=== PATIENT | female | born 1950 | race Caucasian/White ===

== ENCOUNTER 2019-03-17 15:41 | Emergency (ER) | payer OTHER | END 2019-03-17 16:54 | disposition left against medical advice (07) | LOC: EDUNIT# 15:41 → ER FS 15:43 | DX: R19.4 Change in bowel habit (principal); R06.02 Shortness of breath ==

== ENCOUNTER → 2020-01-13 | Outpatient (CLI) | payer MEDICARE ==
--- NOTE | 2020-01-13 11:22 | Diagnostic Imaging Report ---
INDICATION: Cough. COMPARISON: None. FINDINGS: Frontal and lateral views of the chest demonstrate normal heart size and pulmonary vascularity. Evaluation of the lung frost demonstrates some mild diffuse prominence of the interstitium. There is otherwise no focal consolidation, large effusion, nor pneumothorax. The visualized osseous structures show no acute abnormalities. There is calcified aortic atherosclerosis. IMPRESSION: 1. Mild diffuse prominence of the pulmonary interstitium, which may be on the basis of underlying chronic interstitial lung disease. 2. No focal consolidation or evidence of failure. Dictated by: Dictated on workstation # [id number]
[2020-01-13 12:07] LABS: BILIRUBIN,TOTAL 0.5 MG/DL (0.1-1.0); CALCIUM 9.1 MG/DL (8.5-10.1); CREATININE SERUM 1.17 MG/DL (0.60-1.30); POTASSIUM 4.1 MMOL/L (3.6-5.0); TOTAL PROTEIN 7.7 GM/DL (6.4-8.2)
[2020-01-13 12:09] LABS: BASOPHILS % (AUTO) 1 % (0-10); EOSINOPHILS % (AUTO) 2 % (0-10); HEMATOCRIT 43 % (35-52); HEMOGLOBIN 13.7 G/DL (11.5-16.0); LYMPHOCYTES % (AUTO) 33 % (12-44); MEAN CORPUSCULAR HEMOGLOBIN 30 PG (25-34); MEAN CORPUSCULAR HGB CONC 32 G/DL (32-36); MEAN CORPUSCULAR VOLUME 94 FL (80-99); MONOCYTES % (AUTO) 11 % (0-12); PLATELET COUNT 186 10^3/uL (130-400); RED CELL DISTRIBUTION WIDTH 14.8 % (10.0-14.5)
[2020-01-13 12:10] LABS: BASOPHILS # (AUTO) 0.1 10^3/uL (0.0-0.1); EOSINOPHILS # (AUTO) 0.2 10^3/uL (0.0-0.3); LYMPHOCYTES # (AUTO) 3.3 X 10^3 (1.0-4.0); MONOCYTES # (AUTO) 1.1 X 10^3 (0.0-1.0); NEUTROPHILS # (AUTO) 5.4 X 10^3 (1.8-7.8); NEUTROPHILS % (AUTO) 53 % (42-75)
== END ==
LOC: LAB FS 10:59
PROVIDERS: ATTEND Nurse Practitioner Family
DX: R52 Pain, unspecified (principal); R68.83 Chills (without fever); R05 Cough; Z86.39 Personal history of other endocrine, nutritional and metabolic disease
CPT/HCPCS: 36415; 71046; 80053; 85025

== ENCOUNTER 2021-01-16 08:38 | Emergency (ER) | payer MEDICARE ==
[~2021-01-16] VITALS: Ht 175.2 cm; Wt 105.4 kg
--- NOTE | 2021-01-16 08:44 | ED Fall/Injury ---
General Stated Complaint: FALL History of Present Illness Date Seen by Provider: Jan 16, 2021 Time Seen by Provider: 08:43 Initial Comments 70-year-old female presents by EMS. Patient fell out of bed this morning. Patient presents with numerous skin tears. She has multiple skin tears on the bilateral forearms with the right being greater than the left, multiple skin tears on the left hand, large skin tears over the bilateral knees. She has few small skin tears on her face with some mild contusion on her face. Patient has full range of motion in all her joints with no pain or decreased range of motion and the joints cited that due to her skin tears. Patient is unsure when her last tetanus was. Occurred: just prior to arrival Allergies and Home Medications Allergies Coded Allergies: Penicillins (Unverified Adverse Reaction, Unknown, 01/16/21) cephalexin (Unverified Adverse Reaction, Unknown, 01/16/21) ciprofloxacin (Unverified Adverse Reaction, Unknown, 01/16/21) erythromycin base (Unverified Adverse Reaction, Unknown, 01/16/21) Patient Home Medication List Home Medication List Reviewed: Yes Review of Systems Review of Systems Constitutional: No chills, No fever Eyes: No Symptoms Reported Ears, Nose, Mouth, Throat: no symptoms reported Respiratory: no symptoms reported Cardiovascular: no symptoms reported Gastrointestinal: see HPI Genitourinary: no symptoms reported Musculoskeletal: see HPI Skin: see HPI Psychiatric/Neurological: No Symptoms Reported Past Kgwazgj-Tkbmse-Dyynbr Hx Past Med/Social Hx: Reviewed Nursing Past Med/Soc Hx Physical Exam Vital Signs Vital Signs - First Documented 01/16/21 08:40 Temp 36.8 Pulse 70 Resp 20 B/P (MAP) 166/65 (98) Pulse Ox 97 O2 Delivery Nasal Cannula O2 Flow Rate 2.00 Capillary Refill : Height, Weight, BMI Height: '" Weight: lbs. oz. 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, no motor/sensory deficits, alert, normal mood/affect, oriented x 3 Skin: ecchymosis, other (Patient with numerous skin tears with majority of skin tears right forearm, left hand, few on her face, she had larger skin tears acr oss her bilateral knees.) Procedures/Interventions Wound Location: Lower Extremities Other Wound Location Bilateral knees Wound Length (cm): 25 Wound's Depth, Shape: superficial, irregular, contused tissue Wound Explored: no foreign body removed Irrigated w/ Saline (ccs): 500 Betadine Prep?: Yes Anesthesia: 1% Lidocaine Volume Anesthetic (ccs): 10 Wound Debrided: minimal Suture: Ethlion Suture Size: 4-0 Number of Sutures: 10 Sterile Dressing Applied?: Yes Progress Patient with multiple skin Tears. She had an approximate 12-1/2 cm skin tear on each knee that was very irregular with some contused tissue, some tissue was missing with some avulsion. Her left knee received 4 sutures and multiple Steri-Strips, her right knee received 6 sutures with multiple Steri-Strips. Patient has very thin skin so minimal sutures were used to approximate the tissue then Steri-Strips and nonstick dressing use. Patient tolerated procedure well. Progress/Results/Core Measures Results/Orders My Orders Orders - LOVE,MONICA L DO Dipht,Pertuss(Acell),Tet Adult (Boostrix (01/16/21 09:45) Medications Given in ED Current Medications Medications Dose Ordered Sig/Shorty Route Start Time Stop Time Status Last Admin Dose Admin Diphtheria/ Tetanus/Acell Pertussis 0.5 ml ONCE ONCE IM 01/16/21 09:45 01/16/21 09:46 DC 01/16/21 09:51 0.5 ML Vital Signs/I&O 01/16/21 01/16/21 01/16/21 08:40 08:40 10:01 Temp 36.8 36.8 36.4 36.8 Pulse 70 70 68 Resp 20 20 20 B/P (MAP) 166/65 (98) 166/65 (98) 167/56 (98) Pulse Ox 97 97 97 O2 Delivery Nasal Cannula Nasal Cannula O2 Flow Rate 2.00 2.00 Departure Impression Primary Impression: Multiple skin tears Additional Impressions: Tear of skin of multiple sites of left lower extremity Qualified Codes: S81.812A - Laceration without foreign body, left lower leg, initial encounter Tear of skin of multiple sites of right lower extremity Qualified Codes: S81.811A - Laceration without foreign body, right lower leg, initial encounter Fall from bed, initial encounter Disposition: HOME, SELF-CARE Condition: Stable Departure-Patient Inst. Referrals: MAYCOL CLAIRE MD (PCP/Family) Primary Care Physician Patient Instructions: Wound Care ED, Laceration Repair With Stitches ED, Abrasions ED Add. Discharge Instructions: Follow-up with your primary care provider next week for recheck of your wound Clean your wounds with warm soapy water Change dressings daily You may use topical antibiotic or Vaseline over your wounds MONICA LOVE DO Jan 16, 2021 08:44
[2021-01-16] MEDS ORDERED: TETANUS,DIPTH,PERTUSS P/F (BOOSTRIX) 0.5 ML VIAL IM ONE (09:45)
[2021-01-16 10:01] VITALS: BP 167/56
== END 2021-01-16 10:00 | disposition home or self-care (01) ==
LOC: EDUNIT# 08:38 → ER FS 08:40
DX: S51.811A Laceration without foreign body of right forearm, initial encounter (principal); S81.012A Laceration without foreign body, left knee, initial encounter; S81.011A Laceration without foreign body, right knee, initial encounter; S61.412A Laceration without foreign body of left hand, initial encounter; S00.83XA Contusion of other part of head, initial encounter; Z88.0 Allergy status to penicillin; Z88.1 Allergy status to other antibiotic agents; Z23 Encounter for immunization; W06.XXXA Fall from bed, initial encounter
CPT/HCPCS: 12015; 90715

== ENCOUNTER 2021-06-20 09:35 | Emergency (ER) | payer MEDICARE ==
[~2021-06-20] VITALS: Ht 177.8 cm; Wt 105.0 kg
[2021-06-20] MEDS ORDERED: NS IV 1000 ML 1,000 ML IV SCH ×2 (10:00→14:45)
--- NOTE | 2021-06-20 10:00 | ED General ---
General Stated Complaint: SOB Source of Information: Patient, Family (daughter) History of Present Illness Date Seen by Provider: Jun 20, 2021 Time Seen by Provider: 09:40 Initial Comments 71-year-old female presenting by private vehicle with complaints of generalized body aches and increased shortness of breath with generally not feeling well. She has had increased shortness of breath and cough. She has increased nasal congestion. She states that she uses oxygen to help her sleep overnight. When asked if she has a COPD diagnosis both her and the daughter initially said yes but then the patient said she did not think that she was diagnosed with that, she just has to use Oxygen at night to help her sleep. She denies sleep apnea diagnosis and does not use a CPAP. She is diabetic and states eh has had no appetite since yesterday. She has not been eating anything since yesterday. She reports being up and awake all night due to not feeling well. She has multiple sores on her legs that are not healing. She denies n/v/d, pain with urination, coughing up more than usual. Timing/Duration: 1 Day Severity: Moderate Modifying Factors: worse with Movement Associated Systoms: No Chest Pain; Cough; No Diaphoresis, No Fever/Chills, No Headaches; Loss of Appetite, Malaise; No Nausea/Vomiting, No Seizure; Shortness of Air; No Syncope; Weakness (general) Allergies and Home Medications Allergies Coded Allergies: Penicillins (Unverified Adverse Reaction, Unknown, 01/16/21) cephalexin (Unverified Adverse Reaction, Unknown, 01/16/21) ciprofloxacin (Unverified Adverse Reaction, Unknown, 01/16/21) erythromycin base (Unverified Adverse Reaction, Unknown, 01/16/21) Patient Home Medication List Home Medication List Reviewed: Yes Review of Systems Review of Systems Constitutional: No fever; malaise, weakness EENTM: nose congestion Respiratory: cough, dyspnea on exertion; No phlegm (denies increased phlegm production with increased cough); short of breath; No stridor Cardiovascular: No chest pain Gastrointestinal: see HPI Genitourinary: see HPI Musculoskeletal: see HPI (generalized body aches) Skin: see HPI Psychiatric/Neurological: Weakness (general) Past Pwxyncp-Cvtlzm-Oxlgfk Hx Patient Social History Tobacco Use?: Yes Tobacco type used: Cigarettes Immunizations Up To Date Tetanus Booster (TDap): Unknown Seasonal Allergies Seasonal Allergies: No Past Medical History Surgeries: Yes (Bilat knee arthroscopy, L TKR, Bladder suspension, Pituitary tumor exc) Bladder Surgery, Gallbladder, Joint Replacement, Orthopedic Respiratory: Yes (Tobaccoism) COPD Cardiac: Yes High Cholesterol, Hypertension Neurological: No Genitourinary: Yes (Bladder suspension for incont) Gastrointestinal: Yes (EGD/Colonoscopy; 4 ulcers) Ulcer Musculoskeletal: Yes Arthritis Endocrine: Yes Hypothyroidsim, Diabetes, Non-Insulin dep HEENT: No Cancer: No Psychosocial: Yes Anxiety Integumentary: No (thin skin with numerous skin tears/ecchymosis) Blood Disorders: No Physical Exam Vital Signs Vital Signs - First Documented Capillary Refill : Height, Weight, BMI Height: '" Weight: lbs. oz. kg; 34.00 BMI Method: General Appearance: Anxious, Chronically ill, Mild Distress, Obese HEENT: Moist Mucous Membranes Neck: Supple Respiratory: Chest Non Tender, Accessory Muscle Use, Decreased Breath Sounds Cardiovascular: Regular Rate, Rhythm, Normal Peripheral Pulses Gastrointestinal: Normal Bowel Sounds, No Pulsatile Mass, Non Tender, Soft Rectal: Deferred Extremity: Normal Capillary Refill, Normal Range of Motion, Pedal Edema Neurologic/Psychiatric: Alert, Oriented x3 Skin: Warm/Dry, Other (multiple sores on extremities, especially legs) Focused Exam Lactate Level 06/20/21 10:15: Lactic Acid Level 1.44 Lactic Acid Level Laboratory Tests Test 06/20/21 10:15 Lactic Acid Level 1.44 MMOL/L (0.50-2.00) Procedures/Interventions Suture Size: 4-0 Progress/Results/Core Measures Suspected Sepsis SIRS Temperature: Pulse: Respiratory Rate: Laboratory Tests 06/20/21 10:15: White Blood Count 14.7H Blood Pressure / Mean: 06/20/21 10:15: Lactic Acid Level 1.44 Laboratory Tests 06/20/21 10:15: Creatinine 1.38H, INR Comment 1.1, Platelet Count 153, Total Bilirubin 0.7 Results/Orders Lab Results Laboratory Tests Test 06/20/21 09:43 06/20/21 10:02 06/20/21 10:15 06/20/21 15:30 Range/Units Glucometer 196 H 70-110 MG/DL Blood Gas Puncture Site RIGHT RADIAL Blood Gas Patient Temperature 36.6 Arterial Blood pH 7.44 H 7.37-7.43 Arterial Blood Partial Pressure CO2 50 H 35-45 MMHG Arterial Blood Partial Pressure O2 46 L 79-93 MMHG Arterial Blood HCO3 34 H 23-27 MMOL/L Arterial Blood Total CO2 35.5 H 21.0-31.0 MMOL/L Arterial Blood Oxygen Saturation 83 L 94-100 % Arterial Blood Base Excess 8.4 H -2.5-2.5 MMOL/L Gonzalo Test NEGATIVE Blood Gas Ventilator Setting NO Blood Gas Inspired Oxygen 4 L White Blood Count 14.7 H 4.3-11.0 10^3/uL Red Blood Count 3.76 L 4.35-5.85 10^6/uL Hemoglobin 11.2 L 11.5-16.0 G/DL Hematocrit 34 L 35-52 % Mean Corpuscular Volume 91 80-99 FL Mean Corpuscular Hemoglobin 30 25-34 PG Mean Corpuscular Hemoglobin Concent 33 32-36 G/DL Red Cell Distribution Width 15.8 H 10.0-14.5 % Platelet Count 153 130-400 10^3/uL Mean Platelet Volume 12.0 H 7.4-10.4 FL Immature Granulocyte % (Auto) 1 % Neutrophils (%) (Auto) 69 42-75 % Lymphocytes (%) (Auto) 20 12-44 % Monocytes (%) (Auto) 10 0-12 % Eosinophils (%) (Auto) 1 0-10 % Basophils (%) (Auto) 1 0-10 % Neutrophils # (Auto) 10.2 H 1.8-7.8 X 10^3 Lymphocytes # (Auto) 2.2 1.0-4.0 X 10^3 Monocytes # (Auto) 1.4 H 0.0-1.0 X 10^3 Eosinophils # (Auto) 0.1 0.0-0.3 10^3/uL Basophils # (Auto) 0.1 0.0-0.1 10^3/uL Immature Granulocyte # (Auto) 0.1 0.0-0.1 10^3/uL Neutrophils % (Manual) 77 % Lymphocytes % (Manual) 18 % Monocytes % (Manual) 5 % Polychromasia SLIGHT Prothrombin Time 14.7 12.2-14.7 SEC INR Comment 1.1 0.8-1.4 Activated Partial Thromboplast Time 36 H 24-35 SEC D-Dimer 1.60 H 0.00-0.49 UG/ML Sodium Level 127 L 135-145 MMOL/L Potassium Level 4.6 3.6-5.0 MMOL/L Chloride Level 90 L 98-107 MMOL/L Carbon Dioxide Level 27 21-32 MMOL/L Anion Gap 10 5-14 MMOL/L Blood Urea Nitrogen 23 H 7-18 MG/DL Creatinine 1.38 H 0.60-1.30 MG/DL Estimat Glomerular Filtration Rate 38 BUN/Creatinine Ratio 17 Glucose Level 200 H 70-105 MG/DL Lactic Acid Level 1.44 0.50-2.00 MMOL/L Calcium Level 9.0 8.5-10.1 MG/DL Corrected Calcium 10.0 8.5-10.1 MG/DL Total Bilirubin 0.7 0.1-1.0 MG/DL Aspartate Amino Transf (AST/SGOT) 30 5-34 U/L Alanine Aminotransferase (ALT/SGPT) 10 0-55 U/L Alkaline Phosphatase 103 40-136 U/L Troponin I 2.63 *H <0.30 NG/ML C-Reactive Protein 21.64 H <0.50 MG/DL Pro-B-Type Natriuretic Peptide 54810.0 H <75.0 PG/ML Total Protein 7.6 6.4-8.2 GM/DL Albumin 2.8 L 3.2-4.5 GM/DL SARS-CoV-2 RNA (RT-PCR) Not Detected Not Detecte Smear Scan LRG PLTS Urine Color YELLOW Urine Clarity CLOUDY Urine pH 5.5 5-9 Urine Specific [place] 1.015 L 1.016-1.022 Urine Protein 1+ H NEGATIVE Urine Glucose (UA) NEGATIVE NEGATIVE Urine Ketones TRACE H NEGATIVE Urine Nitrite POSITIVE H NEGATIVE Urine Bilirubin NEGATIVE NEGATIVE Urine Urobilinogen 0.2 < = 1.0 MG/DL Urine Leukocyte Esterase 1+ H NEGATIVE Urine RBC (Auto) 1+ H NEGATIVE Urine RBC NONE /HPF Urine WBC >100 H /HPF Urine Squamous Epithelial Cells NONE /HPF Urine Crystals NONE /LPF Urine Bacteria LARGE H /HPF Urine Casts NONE /LPF Urine Mucus NEGATIVE /LPF Urine Culture Indicated YES My Orders Orders - CANDY LE MD Monitor-Rhythm Ecg Trace Only (06/20/21 09:47) Cbc With Automated Diff (06/20/21 09:47) Comprehensive Metabolic Panel (06/20/21 09:47) Crp Fs (06/20/21 09:47) Troponin I Fs (06/20/21 09:47) Protime With Inr (06/20/21 09:47) Partial Thromboplastin Time (06/20/21 09:47) Ekg Tracing (06/20/21 09:47) Arterial Blood Gas (06/20/21 09:47) Ns Iv 1000 Ml (Sodium Chloride 0.9%) (06/20/21 10:00) Ua Culture If Indicated (06/20/21 09:47) Blood Culture (06/20/21 09:47) O2 (06/20/21 09:47) Influenza A And B Antigens (06/20/21 09:47) Covid 19 Inhouse Test (06/20/21 09:47) Lactic Acid Analyzer (06/20/21 09:47) Chest 1 View Ap/Pa Only (06/20/21 09:50) Dexamethasone Injection (Decadron Inje (06/20/21 09:50) Probnp Fs (06/20/21 09:50) Accucheck Stat ONCE (06/20/21 09:51) Manual Differential (06/20/21 10:15) Fibrin Degradation Products (06/20/21 10:42) Heparin Drip 74593 Unit/500ml (Heparin (06/20/21 11:45) Heparin (Bolus Per Protocol) (Heparin (B (06/20/21 11:41) Aspirin Chewable Tablet (Baby Aspirin Ch (06/20/21 11:45) Meropenem (Merrem 500 Mg) (06/20/21 11:42) Alprazolam Tablet (Xanax Tablet) (06/20/21 13:00) Ns Iv 1000 Ml (Sodium Chloride 0.9%) (06/20/21 14:45) Urine Culture (06/20/21 15:30) Medications Given in ED Current Medications Medications Dose Ordered Sig/Shorty Route Start Time Stop Time Status Last Admin Dose Admin Alprazolam 0.5 mg ONCE ONCE PO 06/20/21 13:00 06/20/21 13:01 DC 06/20/21 13:03 0.5 MG Aspirin 324 mg ONCE ONCE PO 06/20/21 11:45 06/20/21 11:46 DC 06/20/21 13:02 324 MG Heparin Sodium (Porcine) 5,000 unit 1141 ONCE IV 06/20/21 11:41 06/20/21 11:43 DC 06/20/21 13:04 5,000 UNIT Heparin Sodium/ Dextrose 500 ml @ 0 mls/hr Q0M ONCE IV 06/20/21 11:45 06/20/21 11:46 DC 06/20/21 13:10 20 MLS/HR Vital Signs/I&O 06/20/21 06/20/21 09:35 09:35 Temp 36.6 Pulse 87 Resp 26 B/P (MAP) 139/58 (85) Pulse Ox 94 94 O2 Delivery Nasal Cannula Nasal Cannula O2 Flow Rate 4.00 4.00 Capillary Refill : Progress Note #1: Progress Note with vague complaints of body aches and increased shortness of breath and hypoxia will evaluate for pneumonia, COVID, Influenza, DKA, UTI, Sepsis, Myocardial Infarction Progress Note #2: Progress Note Labs shows elevated white blood cell count of 14.7 with a left shift. She has chest x-ray showing diffuse patchy infiltrate worse in the bases. She has chemistry panel showing a normal lactic acid of 1.44. She has elevated creatinine at 1.38. Her troponin is elevated at 2.63. Her proBNP is over 20,000. Her D-dimer is elevated to 1.6. However with her creatinine and GFR will defer CT angiogram until this is improved. In the meantime we will start heparin drip for non-ST elevation NV and concern for elevated D-dimer in case there is any blood clot or PE. Covid swab is pending. Updated patient and advise that she would need to be admitted to the hospital for treatment. Patient and family were adamant that they did not want to be admitted at [facility]. They requested to go to [place] or [facility]. Will start Meropenem for pneumonia/infiltrate seen on CXR since she has multiple allergies to antibiotics. Progress Note #3: Progress Note 1145 [facility] contacted and they reported they were at capacity and had no beds available. 1146 [facility] in [place] contacted and they also reported they were at capacity. 1148 [facility] contacted and they also were at capacity and had no beds available. 1200 pm [facility] contacted and the reported the did not have any beds available within their system. They would work on checking to find out if they might have a bed available at [facility] or at [facility]. 1202 pm [facility] contacted and they also were at capacity had no beds available. At this point the statewide bed request through mission control was contacted to have them work on trying to find a bed for the patient. 1321 updated [place] [employer] that Covid PCR swab came back negative. 1342 Dr. Katie Jenkins from [facility] was given information on the patient and state she would work on checking at their facilities to see if there is any bed availability. ECG Initial ECG Impression Date: Jun 20, 2021 Initial ECG Impression Time: 10:52 Initial ECG Rate: 84 Initial ECG Rhythm: Normal Sinus Initial ECG Comparisson: No Previous ECG Available Comment Normal sinus rhythm with a heart rate of 84 bpm. RI interval [address] elevation. Q waves in leads II, 3, aVF. No prior tracing available for comparison. QT interval 346 ms with a QTc interval 408 ms. Diagnostic Imaging Diagonstic Imaging: Xray Plain Films/CT/US/NM/MRI: chest Comments NAME: SOUMYA RIOS [facility] REC#: [id number] PT STATUS: REG ER : 1950 PHYSICIAN: CANDY LE MD ADMIT DATE: 06/20/21/ER FS Draft Date of Exam:06/20/21 CHEST 1 VIEW AP/PA ONLY INDICATION: Shortness of breath. TIME OF EXAM: 10:12 AM Comparison is made with prior chest from 01/13/2020. The heart is enlarged. There are interstitial changes throughout both lungs. There appears to be some patchy infiltrate in the right base that is new since prior exam. There is also some patchy infiltrate in the left base. No effusion or pneumothorax is detected. IMPRESSION: Development of patchy bibasilar infiltrates when compared to examination from 01/13/2020. Dictated on workstation # [id number] Dict: 06/20/21 1031 Trans: 06/20/21 1036 CVB [id number] Interpreted by: SVETLANA RASHID MD Electronically signed by: Departure Impression Primary Impression: Pneumonia Qualified Codes: J18.9 - Pneumonia, unspecified organism Additional Impressions: Hypoxia Non-ST elevated myocardial infarction Udiet-qr-xnsnytl kidney injury Qualified Codes: N17.9 - Acute kidney failure, unspecified; N18.4 - Chronic kidney disease, stage 4 (severe) Disposition: 02 XFER SHT-TRM HOSP Condition: Critical Transfer Transfer Reason: Diversion (No beds available for pt at local facilities) Time Spoke to Accepting Phy: 13:42 Transfer Progress Notes d/w Dr. Katie Jenkins and she was accepting to have pt come to [facility] provided they can find an intermediate bed. Will call back if can find a bed for her. Transfer Facility: [place], [place] Method of Transfer: EMS Departure-Patient Inst. Referrals: MAYCOL CLAIRE MD (PCP/Family) Primary Care Physician CANDY LE MD Jun 20, 2021 10:00
[2021-06-20 10:05] LABS: ALLENS TEST NEGATIVE; INSPIRED O2 4 L; PATIENT TEMP 36.6; VENTILATOR NO
[2021-06-20 10:28] LABS: HEMATOCRIT 34 % (35-52); HEMOGLOBIN 11.2 G/DL (11.5-16.0); LYMPHOCYTES % (AUTO) 20 % (12-44); MEAN CORPUSCULAR HEMOGLOBIN 30 PG (25-34); MEAN CORPUSCULAR HGB CONC 33 G/DL (32-36); MEAN CORPUSCULAR VOLUME 91 FL (80-99); NEUTROPHILS % (AUTO) 69 % (42-75); PLATELET COUNT 153 10^3/uL (130-400); WHITE BLOOD COUNT 14.7 10^3/uL (4.3-11.0)
[2021-06-20 10:29] LABS: BASOPHILS # (AUTO) 0.1 10^3/uL (0.0-0.1); BASOPHILS % (AUTO) 1 % (0-10); EOSINOPHILS # (AUTO) 0.1 10^3/uL (0.0-0.3); EOSINOPHILS % (AUTO) 1 % (0-10); LYMPHOCYTES # (AUTO) 2.2 X 10^3 (1.0-4.0); MONOCYTES # (AUTO) 1.4 X 10^3 (0.0-1.0); MONOCYTES % (AUTO) 10 % (0-12); NEUTROPHILS # (AUTO) 10.2 X 10^3 (1.8-7.8)
[2021-06-20 10:36] LABS: INR 1.1 (0.8-1.4); PROTHROMBIN TIME PATIENT 14.7 SEC (12.2-14.7)
--- NOTE | 2021-06-20 10:36 | Diagnostic Imaging Report ---
INDICATION: Shortness of breath. TIME OF EXAM: 10:12 AM Comparison is made with prior chest from 01/13/2020. The heart is enlarged. There are interstitial changes throughout both lungs. There appears to be some patchy infiltrate in the right base that is new since prior exam. There is also some patchy infiltrate in the left base. No effusion or pneumothorax is detected. IMPRESSION: Development of patchy bibasilar infiltrates when compared to examination from 01/13/2020. Dictated by: Dictated on workstation # [id number]
[2021-06-20 10:39] LABS: ABG BASE EXCESS 8.4 MMOL/L (-2.5-2.5); ABG OXYGEN SATURATION 83 % (94-100); ABG PCO2 50 MMHG (35-45); ABG PH 7.44 (7.37-7.43); ABG PO2 46 MMHG (79-93); ABG TCO2 35.5 MMOL/L (21.0-31.0)
[2021-06-20 10:48] LABS: CREATININE SERUM 1.38 MG/DL (0.60-1.30); POTASSIUM 4.6 MMOL/L (3.6-5.0)
[2021-06-20 10:49] LABS: ALBUMIN 2.8 GM/DL (3.2-4.5); BILIRUBIN,TOTAL 0.7 MG/DL (0.1-1.0); TOTAL PROTEIN 7.6 GM/DL (6.4-8.2)
[2021-06-20 11:16] LABS: LYMPHOCYTES % (MANUAL) 18 %; MONOCYTES % (MANUAL) 5 %; NEUTROPHILS % (MANUAL) 77 %; POLYCHROMASIA SLIGHT; SMEAR SCAN COMMENT LRG PLTS
[2021-06-20] MEDS ORDERED: HEParin 1000 UNIT/ML (10ML VIAL) FOR BOLUS IV ONE (11:41)
[2021-06-20] MEDS ORDERED: MEROPENEM 500 MG in WATER (STERILE) FOR INJECTION 10 ML IV STA (11:42)
[2021-06-20] MEDS ORDERED: ASPIRIN 81 MG CHEW (CHILDREN'S ASA) PO ONE (11:45)
[2021-06-20] MEDS ORDERED: HEParin DRIP 25000 UNIT/500ML 500 ML IV ONE (11:45)
[2021-06-20] MEDS ORDERED: ALPRAZolam 0.25 MG (XANAX) TAB PO ONE (13:00)
[2021-06-20 15:42] LABS: BACTERIA,URINE LARGE /HPF; BILIRUBIN,URINE NEGATIVE (NEGATIVE); CLARITY,URINE CLOUDY; COLOR,URINE YELLOW; GLUCOSE, URINE (UA) NEGATIVE (NEGATIVE); KETONES,URINE TRACE (NEGATIVE); LEUKOCYTE ESTERASE ,URINE 1+ (NEGATIVE); NITRITE,URINE POSITIVE (NEGATIVE); PH,URINE 5.5 (5-9); PROTEIN,URINE 1+ (NEGATIVE); WBC,URINE >100 /HPF
[2021-06-20 16:30] VITALS: BP 146/86
== END 2021-06-20 16:30 | disposition short-term general hospital (02) ==
LOC: EDUNIT# 09:40 → ER FS 09:41
DX: J18.9 Pneumonia, unspecified organism (principal); R09.02 Hypoxemia; I21.4 Non-ST elevation (NSTEMI) myocardial infarction; N17.9 Acute kidney failure, unspecified; I12.9 Hypertensive chronic kidney disease with stage 1 through stage 4 chronic kidney disease, or unspecified chronic kidney disease; J44.9 Chronic obstructive pulmonary disease, unspecified; E11.22 Type 2 diabetes mellitus with diabetic chronic kidney disease; N18.9 Chronic kidney disease, unspecified; E66.9 Obesity, unspecified; Z68.34 Body mass index [BMI] 34.0-34.9, adult; Z20.822 Contact with and (suspected) exposure to COVID-19
CPT/HCPCS: 36415; 51702; 71045; 80053; 81000; 82805; 82947; 83605; 83880; 84484; 85007; 85027; 85379; 85610; 85730; 86141; 87040; 87077; 87088; 87636; 93005; 93041; 99291

== ENCOUNTER 2021-07-16 10:36 | Emergency (ER) | payer MEDICARE ==
[~2021-07-16] VITALS: Ht 175.2 cm; Wt 105.0 kg
[2021-07-16 10:45] VITALS: BP 110/48
[2021-07-16 11:10] LABS: BASOPHILS % (AUTO) 0 % (0-10); EOSINOPHILS % (AUTO) 9 % (0-10); HEMATOCRIT 38 % (35-52); HEMOGLOBIN 12.2 g/dL (11.5-16.0); LYMPHOCYTES # (AUTO) 2.7 X 10^3 (1.0-4.0); LYMPHOCYTES % (AUTO) 21 % (12-44); MEAN CORPUSCULAR HEMOGLOBIN 30 pg (25-34); MEAN CORPUSCULAR HGB CONC 32 g/dL (32-36); MEAN CORPUSCULAR VOLUME 92 fL (80-99); MONOCYTES # (AUTO) 1.4 X 10^3 (0.0-1.0); MONOCYTES % (AUTO) 11 % (0-12); NEUTROPHILS # (AUTO) 7.5 X 10^3 (1.8-7.8); NEUTROPHILS % (AUTO) 59 % (42-75); PLATELET COUNT 169 10^3/uL (130-400); WHITE BLOOD COUNT 12.8 10^3/uL (4.3-11.0)
[2021-07-16 11:11] LABS: BASOPHILS # (AUTO) 0.1 10^3/uL (0.0-0.1); EOSINOPHILS # (AUTO) 1.2 10^3/uL (0.0-0.3)
--- NOTE | 2021-07-16 11:17 | ED General ---
General Chief Complaint: Lower Extremity Stated Complaint: GEN WEAKNESS Nursing Triage Note: Patient presents to the ED via EMS with c/o bilateral knee and feet pain. Patient reports she fell yesterday evening and since then she has had pain in her knees and feet that make it difficult to stand or walk. EMS reports that they were called for altered mental status but upon arrival patient was alert and oriented. Patient does report confusion yesterday evening and states when that happens her potassium level is usally out of the normal range. Source of Information: Patient, EMS, Old Records History of Present Illness Date Seen by Provider: Jul 16, 2021 Time Seen by Provider: 10:37 Initial Comments 71-year-old female presenting with EMS from home. She had fallen 07/15 at home and was having pain in her feet and knees. Family called 911 today because they felt she was not oriented. She was having trouble getting up due to pain in her feet and knees. She does use a walker chronically. She denies any her head or losing consciousness. She states that she has had some similar symptoms in the past with a low potassium. She denies any nausea, vomiting, diarrhea, pain with urination. She had just eaten prior to EMS picking her up. Associated Systoms: No Chest Pain; Cough (chronic); No Diaphoresis, No Fever/Chills, No Headaches, No Loss of Appetite, No Nausea/Vomiting, No Seizure, No Syncope Allergies and Home Medications Allergies Coded Allergies: Penicillins (Unverified Adverse Reaction, Unknown, 01/16/21) cephalexin (Unverified Adverse Reaction, Unknown, 01/16/21) ciprofloxacin (Unverified Adverse Reaction, Unknown, 01/16/21) erythromycin base (Unverified Adverse Reaction, Unknown, 01/16/21) Home Medications Potassium Chloride 10 Meq Capsule.er, 10 MEQ PO DAILY Prescribed by: CANDY LE on 07/16/21 1348 Patient Home Medication List Home Medication List Reviewed: Yes Review of Systems Review of Systems Constitutional: No chills, No fever EENTM: no symptoms reported Respiratory: see HPI Cardiovascular: no symptoms reported Gastrointestinal: no symptoms reported Genitourinary: no symptoms reported Musculoskeletal: see HPI, joint pain (bilateral feet and knee pain since fall), muscle pain (bilateral feet and knees since fall) Skin: change in color (multiple bruises in various stages of healing) Psychiatric/Neurological: No Symptoms Reported Past Erxkmoq-Sgopgx-Ftjspb Hx Patient Social History Tobacco Use?: No Tobacco type used: Cigarettes Smoking Status: Former Smoker Use of E-Cig and/or Vaping dev: No Substance use?: No Alcohol Use?: No Pt feels they are or have been: No Immunizations Up To Date Tetanus Booster (TDap): Unknown First/Initial COVID19 Vaccinat: 01/2021 Second COVID19 Vaccination Lon: 01/2021 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 Lockstitch: Fred Seasonal Allergies Seasonal Allergies: No Past Medical History Surgery/Hospitalization HX: HTN, DM, COPD with O2 dependency at night, frequent falls, Hypothyroidism Surgeries: Yes (Bilat knee arthroscopy, L TKR, Bladder suspension, Pituitary tumor exc) Bladder Surgery, Gallbladder, Joint Replacement, Orthopedic Respiratory: Yes (Tobaccoism) COPD Cardiac: Yes High Cholesterol, Hypertension Neurological: No Genitourinary: Yes (Bladder suspension for incont) Gastrointestinal: Yes (EGD/Colonoscopy; 4 ulcers) Ulcer Musculoskeletal: Yes Arthritis Endocrine: Yes Hypothyroidsim, Diabetes, Non-Insulin dep HEENT: No Cancer: No Psychosocial: Yes Anxiety Integumentary: No (thin skin with numerous skin tears/ecchymosis) Blood Disorders: No Physical Exam Vital Signs Vital Signs - First Documented 07/16/21 10:45 Temp 36.7 Pulse 81 Resp 17 B/P (MAP) 110/48 (68) Pulse Ox 97 O2 Delivery Room Air Capillary Refill : Less Than 3 Seconds Height, Weight, BMI Height: '" Weight: lbs. oz. 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 Norm as Tested Skin: Warm/Dry Procedures/Interventions Suture Size: 4-0 Progress/Results/Core Measures Suspected Sepsis SIRS Temperature: Pulse: 81 Respiratory Rate: 17 Laboratory Tests 07/16/21 10:52: White Blood Count 12.8H Blood Pressure 110 /48 Mean: 68 Laboratory Tests 07/16/21 10:52: Creatinine 1.75H, INR Comment 1.1, Platelet Count 169, Total Bilirubin 0.6 Results/Orders Lab Results Laboratory Tests Test 07/16/21 10:52 Range/Units White Blood Count 12.8 H 4.3-11.0 10^3/uL Red Blood Count 4.12 3.80-5.11 10^6/uL Hemoglobin 12.2 11.5-16.0 g/dL Hematocrit 38 35-52 % Mean Corpuscular Volume 92 80-99 fL Mean Corpuscular Hemoglobin 30 25-34 pg Mean Corpuscular Hemoglobin Concent 32 32-36 g/dL Red Cell Distribution Width 16.2 H 10.0-14.5 % Platelet Count 169 130-400 10^3/uL Mean Platelet Volume 11.0 9.0-12.2 fL Neutrophils (%) (Auto) 59 42-75 % Lymphocytes (%) (Auto) 21 12-44 % Monocytes (%) (Auto) 11 0-12 % Eosinophils (%) (Auto) 9 0-10 % Basophils (%) (Auto) 0 0-10 % Neutrophils # (Auto) 7.5 1.8-7.8 X 10^3 Lymphocytes # (Auto) 2.7 1.0-4.0 X 10^3 Monocytes # (Auto) 1.4 H 0.0-1.0 X 10^3 Eosinophils # (Auto) 1.2 H 0.0-0.3 10^3/uL Basophils # (Auto) 0.1 0.0-0.1 10^3/uL Prothrombin Time 14.5 12.2-14.7 SEC INR Comment 1.1 0.8-1.4 Activated Partial Thromboplast Time 35 24-35 SEC Sodium Level 132 L 135-145 MMOL/L Potassium Level 2.9 L 3.6-5.0 MMOL/L Chloride Level 91 L 98-107 MMOL/L Carbon Dioxide Level 27 21-32 MMOL/L Anion Gap 14 5-14 MMOL/L Blood Urea Nitrogen 27 H 7-18 MG/DL Creatinine 1.75 H 0.60-1.30 MG/DL Estimat Glomerular Filtration Rate 29 BUN/Creatinine Ratio 15 Glucose Level 308 H 70-105 MG/DL Calcium Level 8.6 8.5-10.1 MG/DL Corrected Calcium 9.4 8.5-10.1 MG/DL Magnesium Level 1.7 1.6-2.4 MG/DL Total Bilirubin 0.6 0.1-1.0 MG/DL Aspartate Amino Transf (AST/SGOT) 21 5-34 U/L Alanine Aminotransferase (ALT/SGPT) 9 0-55 U/L Alkaline Phosphatase 117 40-136 U/L Troponin I < 0.30 <0.30 NG/ML Pro-B-Type Natriuretic Peptide 8740.0 H <75.0 PG/ML Total Protein 6.9 6.4-8.2 GM/DL Albumin 3.0 L 3.2-4.5 GM/DL Lipase 7 L 8-78 U/L My Orders Orders - CANDY LE MD Cbc With Automated Diff (07/16/21 10:46) Magnesium (07/16/21 10:46) Ekg Tracing (07/16/21 10:46) Comprehensive Metabolic Panel (07/16/21 10:46) Protime With Inr (07/16/21 10:46) Partial Thromboplastin Time (07/16/21 10:46) O2 (07/16/21 10:46) Monitor-Rhythm Ecg Trace Only (07/16/21 10:46) Ed Iv/Invasive Line Start (07/16/21 10:46) Lipase (07/16/21 10:46) Foot 3 View Bilateral (07/16/21 10:46) Knee 3 View Bilateral (07/16/21 10:46) Probnp Fs (07/16/21 10:46) Troponin I Fs (07/16/21 10:46) Chest 1 View Ap/Pa Only (07/16/21 11:53) Potassium Cl 10meq/50ml Ivpb (Kcl 10 Meq (07/16/21 12:00) Ns (Ivpb) (Sodium Chloride 0.9%) (07/16/21 12:00) Vital Signs/I&O 07/16/21 10:45 Temp 36.7 Pulse 81 Resp 17 B/P (MAP) 110/48 (68) Pulse Ox 97 O2 Delivery Room Air Capillary Refill : Less Than 3 Seconds Blood Pressure Mean: 68 Progress Note #1: Progress Note check basic labs, cardiac enzymes, xrays of feet and knees, urine. Progress Note #2: Time: 11:58 Progress Note CBC stable from prior tests with mild elevation of WBC that appears to be chronic but improved from June 20. Chemistry with hypokalemia of 2.9, mild hy ponatremia, elevated Cr to 1.75, Negative troponin of <0.3, Elevated proBNP 8740 but down from June 20 when it was over 20K. Awaiting imaging of feet, knees and will add on CXR with her elevated proBNP and Cr. Order a 10 mEq KCL IV dose along with 250 mL NS to dilute potassium infusion. If no fractures seen could plan on discharge to home with family on a few days of potassium oral supplement and check back with clinic for lab recheck next week. Progress Note #3: Progress Note Prescribe a potassium supplement for home. Encourage patient to follow-up through the clinic for recheck. Reassured patient and family that there is no fracture seen on imaging. It appears that the medications for heart failure are helping as her proBNP has come down. Counseled on follow-up and return precautions especially regarding her frequent falls and weakness ECG Initial ECG Impression Date: Jul 16, 2021 Initial ECG Impression Time: 10:54 Initial ECG Rate: 77 Initial ECG Rhythm: Normal Sinus Initial ECG Comparisson: Unchanged Comment Normal sinus rhythm with a heart rate of 77 bpm. NH interval 180 ms. QT inte rval 446 ms with a QTc interval of 505 ms. She has chronic inferior Q waves in leads II, III and aVF. Overall the tracing appears similar to June 20. No acute ST elevation Diagnostic Imaging Diagonstic Imaging: Xray Plain Films/CT/US/NM/MRI: knee Comments [facility]. [place], [place] NAME: SOUMYA RIOS [facility] REC#: [id number] PT STATUS: DEP ER : 1950 PHYSICIAN: CANDY LE MD ADMIT DATE: 07/16/21/ER FS Signed Date of Exam:07/16/21 KNEE 3 VIEW BILATERAL EXAM: Bilateral knees at 11:46 AM INDICTION: Injury, knee pain. 3 views of each knee joint were obtained. There are no prior studies available for comparison. There is no fracture, dislocation or acute bony abnormality evident. There is a total knee prosthesis on the left. The prosthetic components seem to be in good position. There is at least moderate degenerative disease of each compartment of the right knee joint. The soft tissues are unremarkable for an acute abnormality. There are 5 roughly 1 cm rounded calcific densities in the soft tissues along the posterior aspect of the right knee joint. There also appears to be a 1 cm loose body in the posterior aspect of the right knee joint. There may be another smaller 4 mm calcific density anteriorly. The soft tissues are unremarkable. There is no sign of a joint effusion. IMPRESSION: 1. There is no evidence for an acute bony abnormality. 2. The total knee prosthesis on the left appear stable. 3. 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 There also appears to be loose bodies within the knee joint. Dictated by: Dictated on workstation # [id number] Dict: 07/16/21 1240 Trans: 07/16/21 1628 [facility] [id number] Interpreted by: SENIA RAJAN MD Electronically signed by: SENIA RAJAN MD 07/16/21 1628 Diagonstic Imaging: Xray Plain Films/CT/US/NM/MRI: other (feet) Comments [facility] [place], [place] NAME: SOUMYA RIOS [facility] REC#: [id number] PT STATUS: DEP ER : 1950 PHYSICIAN: CANDY LE MD ADMIT DATE: 07/16/21/ER FS Signed Date of Exam:07/16/21 FOOT 3 VIEW BILATERAL EXAM: Bilateral feet at 11:57 AM INDICATION: Injury, foot pain. 4 views of each foot were obtained. There are no prior studies for comparison. FINDINGS: The images of the left foot show a prominent area of healing callus formation about the neck of the second metatarsal. There is a linear lucency still evident within the neck of the second metatarsal indicating that this fracture has not healed completely. There is also an orthopedic fixation screw extending longitudinally through the distal right fibula. There is no acute fracture of either foot. There is moderate degenerative disease of the phalanges and there is a small calcaneal spur on the left. The Lisfranc joint seems well-maintained. The soft tissues are unremarkable. IMPRESSION: 1. There is no evidence for an acute bony abnormality. 2. There are post traumatic changes involving the left second metatarsal and postsurgical changes involving the distal right fibula. Dictated by: Dictated on workstation # [id number] Dict: 07/16/21 1236 Trans: 07/16/21 1628 [facility] [id number] Interpreted by: SENIA RAJAN MD Electronically signed by: SENIA RAJAN MD 07/16/21 1628 Diagonstic Imaging: Xray Plain Films/CT/US/NM/MRI: chest Comments [facility] [place], [place] NAME: SOUMYA RIOS [facility] REC#: [id number] PT STATUS: REG ER : 1950 PHYSICIAN: CANDY LE MD ADMIT DATE: 07/16/21/ER FS Signed Date of Exam:07/16/21 CHEST 1 VIEW AP/PA ONLY EXAMINATION: Chest 1 view HISTORY: weak, short of breath COMPARISON: 06/20/2021 FINDINGS: Stable size of the cardiac silhouette and pulmonary vasculature. There are calcifications of the aorta. There has been interval decrease in the bibasilar opacities compared to a 06/20/2021. There are persistent interstitial opacities seen throughout both lungs. No pleural effusion or pneumothorax. The osseous structures are intact. IMPRESSION: 1. Mild cardiomegaly and diffuse interstitial opacities in both lungs which can be seen with pulmonary edema or atypical infection. 2. Decreased bibasilar opacities compared to 06/20/2021. Dictated by: Dictated on workstation # [id number] Dict: 07/16/21 1239 Trans: 07/16/21 1345 [facility] [id number] Interpreted by: LILIANA ANGELO DO Electronically signed by: LILIANA ANGELO DO 07/16/21 1345 Reviewed: Reviewed by Me Departure Impression Primary Impression: Bilateral leg and foot pain Additional Impressions: Fall at home Qualified Codes: W19.XXXA - Unspecified fall, initial encounter; Y92.009 - Unspecified place in unspecified non-institutional (private) residence as the place of occurrence of the external cause Hypokalemia Disposition: HOME, SELF-CARE Condition: Stable Departure-Patient Inst. Decision time for Depature: 13:46 Referrals: MAYCOL CLAIRE MD (PCP/Family) Primary Care Physician Patient Instructions: Foot Sprain ED, Hypokalemia (DC), Knee Pain ED, Preventing Falls ED Add. Discharge Instructions: Take the low dose potassium to help with keeping your potassium up while taking your water pill diuretic. Check back with clinic for continued concerns/problems. All discharge instructions reviewed with patient and/or family. Voiced understanding. Scripts Potassium Chloride (Potassium Chloride) 10 Meq Capsule.er 10 MEQ PO DAILY for hypokalemia for 14 Days, #14 CAP 0 Refills Prov: CANDY LE MD 07/16/21 CANDY LE MD Jul 16, 2021 11:17
[2021-07-16 11:31] LABS: BUN/CREATININE RATIO 15; CARBON DIOXIDE 27 MMOL/L (21-32); CHLORIDE 91 MMOL/L (98-107); CREATININE SERUM 1.75 MG/DL (0.60-1.30); GFR ESTIMATED 29; POTASSIUM 2.9 MMOL/L (3.6-5.0); SODIUM 132 MMOL/L (135-145)
[2021-07-16 11:32] LABS: ALANINE AMINOTRANSFERASE 9 U/L (0-55); ALKALINE PHOSPHATASE 117 U/L (40-136); BILIRUBIN,TOTAL 0.6 MG/DL (0.1-1.0); CALCIUM 8.6 MG/DL (8.5-10.1); GLUCOSE 308 MG/DL (70-105)
[2021-07-16 11:33] LABS: LIPASE 7 U/L (8-78); TOTAL PROTEIN 6.9 GM/DL (6.4-8.2)
[2021-07-16 11:50] LABS: MAGNESIUM 1.7 MG/DL (1.6-2.4)
[2021-07-16 11:54] LABS: INR 1.1 (0.8-1.4); PROTHROMBIN TIME PATIENT 14.5 SEC (12.2-14.7)
[2021-07-16] MEDS ORDERED: NS (IVPB) 250 ML IV STA (12:00)
[2021-07-16] MEDS ORDERED: POTASSIUM CL 10MEQ/50ML IVPB 50 ML IV STA (12:00)
--- NOTE | 2021-07-16 12:42 | Diagnostic Imaging Report ---
EXAMINATION: Chest 1 view HISTORY: weak, short of breath COMPARISON: 06/20/2021 FINDINGS: Stable size of the cardiac silhouette and pulmonary vasculature. There are calcifications of the aorta. There has been interval decrease in the bibasilar opacities compared to a 06/20/2021. There are persistent interstitial opacities seen throughout both lungs. No pleural effusion or pneumothorax. The osseous structures are intact. IMPRESSION: 1. Mild cardiomegaly and diffuse interstitial opacities in both lungs which can be seen with pulmonary edema or atypical infection. 2. Decreased bibasilar opacities compared to 06/20/2021. Dictated by: Dictated on workstation # [id number]
--- NOTE | 2021-07-16 12:43 | Diagnostic Imaging Report ---
EXAM: Bilateral feet at 11:57 AM INDICATION: Injury, foot pain. 4 views of each foot were obtained. There are no prior studies for comparison. FINDINGS: The images of the left foot show a prominent area of healing callus formation about the neck of the second metatarsal. There is a linear lucency still evident within the neck of the second metatarsal indicating that this fracture has not healed completely. There is also an orthopedic fixation screw extending longitudinally through the distal right fibula. There is no acute fracture of either foot. There is moderate degenerative disease of the phalanges and there is a small calcaneal spur on the left. The Lisfranc joint seems well-maintained. The soft tissues are unremarkable. IMPRESSION: 1. There is no evidence for an acute bony abnormality. 2. There are post traumatic changes involving the left second metatarsal and postsurgical changes involving the distal right fibula. Dictated by: Dictated on workstation # [id number]
--- NOTE | 2021-07-16 12:46 | Diagnostic Imaging Report ---
EXAM: Bilateral knees at 11:46 AM INDICTION: Injury, knee pain. 3 views of each knee joint were obtained. There are no prior studies available for comparison. There is no fracture, dislocation or acute bony abnormality evident. There is a total knee prosthesis on the left. The prosthetic components seem to be in good position. There is at least moderate degenerative disease of each compartment of the right knee joint. The soft tissues are unremarkable for an acute abnormality. There are 5 roughly 1 cm rounded calcific densities in the soft tissues along the posterior aspect of the right knee joint. There also appears to be a 1 cm loose body in the posterior aspect of the right knee joint. There may be another smaller 4 mm calcific density anteriorly. The soft tissues are unremarkable. There is no sign of a joint effusion. IMPRESSION: 1. There is no evidence for an acute bony abnormality. 2. The total knee prosthesis on the left appear stable. 3. 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 There also appears to be loose bodies within the knee joint. Dictated by: Dictated on workstation # [id number]
[2021-07-16] MEDS ORDERED: POTA10CA43 PO (13:48)
== END 2021-07-16 14:09 | disposition home or self-care (01) ==
LOC: EDUNIT# 10:36 → ER FS 10:37
DX: M79.671 Pain in right foot (principal); M79.672 Pain in left foot; M25.561 Pain in right knee; M25.562 Pain in left knee; I10 Essential (primary) hypertension; E11.9 Type 2 diabetes mellitus without complications; J44.9 Chronic obstructive pulmonary disease, unspecified; E66.9 Obesity, unspecified; Z87.891 Personal history of nicotine dependence; Z68.34 Body mass index [BMI] 34.0-34.9, adult; W19.XXXA Unspecified fall, initial encounter; Y92.009 Unspecified place in unspecified non-institutional (private) residence as the place of occurrence of the external cause
CPT/HCPCS: 36415; 71045; 80053; 83690; 83735; 83880; 84484; 85025; 85610; 85730; 93041

== ENCOUNTER 2021-10-21 09:43 | Inpatient (IN) | payer MEDICARE ==
[~2021-10-21] VITALS: Ht 167.7 cm; Wt 119.7 kg
[2021-10-21] VITALS (12 sets, daily range): BP systolic 79–145; BP diastolic 41–110
[~2021-10-21 09:43] MED LIST: POTA10CA43 PO
[2021-10-21] MEDS ORDERED: RT-ALBUTEROL/IPRATROPIUM 3 ML (DUONEB) VIAL INH ONE ×2 (09:45→14:45)
[2021-10-21] MEDS ORDERED: methylPREDNISolone 125 MG (Solu-MEDROL) VIAL IM ONE (09:45)
[2021-10-21] MEDS ORDERED: LACTATED RINGERS 1,000 ML IV SCH ×3 (09:45→12:45)
--- OUTSIDE RECORDS SUMMARY | 2021-10-21 09:47 | XMS REPORT | Clinical Summary ---
Author Author [facility] Organization [facility] Address Unknown Phone Unavailable Care Team Providers Care Hat Checker Name Role Phone Jayjay Rendon MD PCP Allergies Comments Active Allergy Reactions Severity Noted Date Clarithromycin Nausea And Low 02/24/2016 Vomiting Erythromycin Nausea And 06/20/2021 Vomiting Cephalexin Rash Low 06/20/2021 Metoclopramide Hcl Nausea And Low 10/29/2018 Vomiting Penicillin Hives, Throat 06/20/2021 edema Sulfa (Sulfonamide Not specified 02/23/2021 Antibiotics) Medications End Date Status Medication Sig Dispensed Refills Start Date Active ALPRAZolam (XANAX) 0.5 MG Take 0.5 mg 0 tabletIndications: by mouth 3 anxiety (three) times a day. Active HYDROcodone-acetaminophen Take 1 tablet 0 (NORCO) 10-325 mg per by mouth tabletIndications: pain every 4 (four) hours as needed for pain. Active omega 3 fish oil (SEA Take 1 0 OMEGA) DHA 200 mg-EPA 300 capsule by mg (1,000 mg) capsule mouth 2 (two) times a day. Active predniSONE (DELTASONE) 1 Take 6 mg by 0 MG tabletIndications: mouth daily. COPD exacerbation Active calcium carbonate Take 1 tablet 0 (OS-EMILEE) 500 mg calcium by mouth 2 (1,250 mg) tablet (two) times a day. Active torsemide (DEMADEX) 20 MG Take 20 mg by 0 tablet mouth daily. Active amitriptyline (ELAVIL) 25 Take 25 mg by 0 MG tablet mouth nightly. Active levothyroxine (SYNTHROID, Take 88 mcg 0 LEVOTHROID) 88 MCG by mouth tabletIndications: daily. hypothyroidism Active gabapentin (NEURONTIN) Take 400 mg 0 400 MG by mouth 3 capsuleIndications: (three) times neuropathic pain a day. Active insulin aspart U-100 Inject 10 0 (NOVOLOG) 100 unit/mL Units under injectionIndications: the skin 3 type 2 diabetes mellitus (three) times a day before meals. Active insulin NPH-insulin Inject 10 0 regular (HUMULIN Units under 70/30,NOVOLIN 70/30) 100 the skin 2 unit/mL (70-30) (two) times a injectionIndications: day. type 2 diabetes mellitus Active dicyclomine (BENTYL) 10 Take 10 mg by 0 MG capsule mouth 4 (four) times a day before meals and nightly. Active pantoprazole (PROTONIX) Take 40 mg by 0 40 MG tablet mouth every morning. Active aspirin 81 MG EC tablet Take 81 mg by 0 mouth daily. Active atorvastatin (LIPITOR) 80 Take 1 tablet 30 tablet 2 MG tablet (80 mg total) 1 by mouth nightly. Active metoprolol tartrate Take 1 tablet 60 tablet 2 (LOPRESSOR) 25 MG tablet (25 mg total) 1 by mouth 2 (two) times a day. Active budesonide-formoteroL 2 puffs 0 (SYMBICORT) 160-4.5 mcg/actuation inhaler Active empagliflozin (JARDIANCE) TAKE ONE (1) 0 10 mg tablet TABLET BY MOUTH ONCE DAILY Active famotidine (PEPCID) 20 MG Take 20 mg by 0 /0 tablet mouth every 0 12 (twelve) hours as needed. 12/29/2021 Active clopidogreL (PLAVIX) 75 Take 1 tablet 30 tablet 2 mg tablet (75 mg total) 1 by mouth daily. 09/23/2021 Discontinued (Patient stoppe d taking - suppress on AVS) sucralfate (CARAFATE) 1 Take 1 g by 0 gram tabletIndications: mouth 4 maintenance of healing (four) times duodenal ulcer a day. Do not take within 30min of antacid or 2hrs of other meds 09/23/2021 Discontinued (Patient stoppe d taking - suppress on AVS) clopidogreL (PLAVIX) 75 Take 1 tablet 30 tablet 2 mg tablet (75 mg total) 1 by mouth daily. 09/30/2021 Discontinued (Reorder) clopidogreL (PLAVIX) 75 Take 1 tablet 30 tablet 2 mg tablet (75 mg total) 1 by mouth daily. Active Problems Problem Noted Date NSTEMI (non-ST elevated myocardial infarction) 06/21 Last Assessment & Plan: Formatting of this note might be differ ent from the original. Echo with normal EF and no R [facility] with PCI to RCA on 06/22/21 Continue DAPT, high intensity statin, b eta-keerthi Jardiance cost check pending Tobacco abuse 06/20/2021 Last Assessment & Plan: Formatting of this note might be differ ent from the original. 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 Denies h/o heart failure Pro BNP was >20,000 Chest xray with basilar infiltrates Continue diuresis Echocardiogram reported with normal LVE F, thickened mitral valve leaflets and mild MR. Resume PO diuretic on discharge per car diology Acute respiratory failure 06/20/2021 06/23/2021 Last Assessment & Plan: Formatting of this note might be differ ent from the original. Patient is normally on 2L oxygen nightl y, required 4L on admission Wean oxygen as tolerated Leukocytosis 06/20/2021 06/23/2021 Last Assessment & Plan: Formatting of this note might be differ ent from the original. Unclear etiology No clear evidence of active infection Appears to be improving, continue to mo nitor Renal insufficiency 06/20/2021 06/23/2021 Last Assessment & Plan: Formatting of this note might be differ ent from the original. Creatinine at outside hospital 1.3, bas azalia apparently around 1.2. -Trend bmp -Avoid nephrotoxic agents including IV contrast, NSAID's, ACEi's, & ARB's. -Keep MAP>65 to maintain adequate renal perfusion. -Pharmacy to renally dose all medicatio ns. Caution in setting of diuresis Encounters Care Team Description Date Type Specialty Heidy Ortega MD Medication Refill 09/30/2021 Refill General Internal Me dicine Kipper, Elayne, homicide squad commanding officer Refill (Plavix) 09/30/2021 Telephone Cardiology Heidy Ortega MD Medication Refill 09/30/2021 Refill General Internal Nm Kristopher Panda MD Atherosclerosis of [place] coronary arter y of [place] heart without angina pectoris (Primary Dx); S/P drug eluting coronary stent placement; Mixed hyperlipidemia; termite treater helper (current) use of antithrombotics/antiplatelets; Tobacco abuse 09/23/2021 Video Visit Cardiology Heidy Ortega MD Medication Refill 09/22/2021 Refill General Internal Nm Heidy Phoenix MD Medication Refill 09/21/2021 Refill General Internal Nm Kat Mulligan RN 09/21/2021 Abstract Cardiology Heidy Ortega MD Medication Refill 09/17/2021 Refill from Last 3 Months Immunizations Name Administration Dates Next Due Social History Date Tobacco Use Types Packs/Day Years Used Current Every Day Smoker Cigarettes 1 50 Smokeless Tobacco: Never Used Comments Alcohol Use Standard Drinks/Week Not Currently 0 (1 standard drink = 0.6 o z pure alcohol) Sex Assigned at Date Recorded Not on file Last Filed Vital Signs Reading Time Taken Comments Vital Sign 126/47 06/23/2021 11:19 AM CDT Blood Pressure 81 06/23/2021 11:19 AM CDT Pulse 36.6 C (97.9 F) 06/23/2021 11:19 AM CDT Temperature 20 06/23/2021 11:19 AM CDT Respiratory Rate 90% 06/23/2021 11:19 AM CDT Oxygen Saturation - - Inhaled Oxygen Concentration 110.6 kg (243 lb 12.8 oz) 06/23/2021 2:18 AM CDT Weight 177.8 cm (5' 10") 06/20/2021 6:35 PM CDT Height 34.98 06/20/2021 6:35 PM CDT Body Mass Index Plan of Treatment Care Team Description Date Type Specialty Bill Zamudio, ALISHA [address] [facility] [address] [place] [address] 03/29/2022 Video Visit Cardiology Health Maintenance Due Date Last Done Comments Diabetes Mellitus 1950 Ophthalmology Exam Diabetes Mellitus Urine 1950 Microalbumin Hepatitis C Screen 1950 Medicare Annual Wellness 1950 Spirometry # 1950 Td/Tdap# 1950 Tobacco Cessation 1950 Counseling # Diabetes Mellitus Foot 1961 Exam Colorectal Screening via 2001 Colonoscopy Zoster Vaccine# (1 of 2) 2001 Depression Screening 01/29/2016 PHQ-9 # Osteoporosis Screening 01/29/2016 Influenza Vaccine (#1) 2021 08/10/2020, 10/02/2019, 09/18/2019, Additional history exists Diabetes Mellitus 12/21/2021 06/20/2021, Hemoglobin A1C 12/10/2019, 10/02/2019, Additional history exists Fall Risk Assessment # 06/23/2022 06/23/2021 Lipid Screening 08/27/2022 08/27/2021, 06/22/2021, 06/22/2021, Additional history exists Mammogram Screening 03/25/2023 03/25/2021, 09/09/2019 Pneumococcal Vaccine: 65+ Completed 10/05/2018, Years 08/10/2017, 07/18/2016, Additional history exists Advance Care Plan Completed 06/22/2021 Document Filed # COVID-19 Vaccine Completed 09/16/2021, 02/22/2021, 01/25/2021 Implants Device Identifier Shelf Expiration Date Model / Serial / L ot Implanted Type Area Manufactur er 11/26/2021 [id number] / [id number] / [id number] [employer] Rx 3.25 Mm X 15 Mm De Stent Stent [facility] [employer]LEX[employer] - [id number] VASCULAR Implanted: Qty: 1 on 06/22/2021 by Larry Lord MD at [facility] Procedures Comments Procedure Name Priority Date/Time Associated Diag nosis LIPID PANEL Routine 08/27/2021 from Last 3 Months Results * Lipid Panel (08/27/2021) Triglycerides 183 (A) 0 - 150 mg/dL HDL Cholesterol 37 (A) 50 - 1,000 mg/dL LDL Cholesterol 80 0 - 100 mg/dL Cholesterol 145 0 - 200 mg/dL Specimen Blood - Venous Narrative from Last 3 Months Insurance Type Payer Benefit Subscriber ID Effective Phone Address Plan / Dates Group MEDICARE REPLACEMENT PLAN [employer] [id number] 2019-P [address] MEDICARE resent [id number] [place] [address] (Home) [place], [place] [address] Ralu Quiroz Personal/F Self 1950 [address] [place] [address] (Home) [place], [place] [address] Advance Directives For more information, please contact: [phone] Patient Social Media Director Explanation Type Date Recorded Health Care Directive Health Care 06/22/2021 7:29 PM Directive Date Inactivated Comments Code Status Date Activated Full Code 06/22/2021 10:04 AM 06/22/2021 10:04 AM Full Code 06/20/2021 6:49 PM Care Teams Start Date End Date Hat Checker Relationship Specialty 06/20/21 Jayjay Rendon MD PCP - General [address] Medicine [place], [place] [id number]
--- OUTSIDE RECORDS SUMMARY | 2021-10-21 09:48 | XMS REPORT | Encounter Summary ---
Author Author [facility] Organization [facility] Address Unknown Phone Unavailable Care Team Providers Care Bushing Press Operator Name Role Phone Jayjay Rendon MD PCP Reason for Visit * Reason Comments Acute Heart Failure Encounter Details Care Team Description Date Type Department Kristopher Hare MD [address] [facility] [address] [place], [place] [id number] Atherosclerosis of [place] coronary arter y of [place] heart without angina pectoris (Primary Dx); S/P drug eluting coronary stent placement; Mixed hyperlipidemia; MCC (current) use of antithrombotics/antiplatelets; Tobacco abuse 09/23/2021 Video Visit [facility] [address] [facility] [address] [place], [place] [id number] Social History Date Tobacco Use Types Packs/Day Years Used Current Every Day Smoker Cigarettes 1 50 Smokeless Tobacco: Never Used Comments Alcohol Use Standard Drinks/Week Not Currently 0 (1 standard drink = 0.6 o z pure alcohol) Sex Assigned at Date Recorded Not on file documented as of this encounter Patient Instructions * Patient Instructions* Scarlett Giron RN - 09/23/2021 10:20 AM CDT Medication Instructions: Continue Current Regimen including plavix. Follow up with Advanced Practice Provider Paige Zamudio in 6 months Please call the Nurse Line at [phone] (Formerly [facility] Team). with any questions or concerns. For medication refill needs, please first contact your pharmacy. For any [facility] scheduling questions, please mini gunn . At [facility], high quality patient care is our top priority. To ensure our cardiovascular standards are continuously met, you may receive a survey via eulalia il or text message, and we ask that you please take the time to fill it out. We strive to ensure you are very satisfied with every visit. Thank you in advance for taking the time to fill this out. It was a pleasure to meet you. Dr. Hare and Scarlett, RN documented in this encounter Progress Notes * Kristopher Hare MD - 09/23/2021 10:20 AM CDT [facility] Appointment Date: 09/23/2021 Jayjay Rendon MD [address] [place] [id number] RE: Arianabigailkiley Quiroz : 1950 Visit provider: Kristopher Hare MD NOTE: This telephone visit was performed in lieu of an in-person visit due to t he COVID-19 pandemic emergency. Verbal consent was obtained prior to the initiat ion of the visit. I confirmed the patients name and date of verbally. T his virtual visit is being conducted by myself at [facility] - [facility]. Patient states they are at home at the time of the call. Dear Jayjay Rendon MD, I had the pleasure of performing a virtual office visit with Raul Quiroz today. She is a(n) 71 y.o. female and presents with the following chief complaint(s): Acute Heart Failure HPI: This is a very pleasant 71-year-old female whom I am meeting for the first time today over the phone. She was recently hospitalized in June with a non-ST moses vation myocardial infarction, peak troponin 2, with normal LV function. She und erwent successful PCI to the culprit RCA with a drug-eluting stent. The LAD and circumflex have only mild diffuse disease. She never had chest discomfort but, rather, had worsening shortness of breath since the PCI. She reports that her breathing has been at baseline. She does also have underlying COPD and a histor y of tobacco abuse. She reports compliance with aspirin and Plavix. No bleedin g issues. She has no questions or complaints today. 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/antiplatelets PATIENT ENCOUNTER S TATUS Coronary atherosclerosis of [place] coronary vessel CORONARY ATHEROSCLEROSIS S/P drug eluting coronary stent placement HISTORY OF PLACEMENT OF STENT FOR CORONARY ARTERY DISEASE Mixed hyperlipidemia MIXED HYPERLIPIDEMIA Peripheral vascular disease (HCC) PERIPHERAL VASCULAR DISEASE Obesity (BMI 30-39.9) BODY MASS INDEX 30+ - OBESITY Past Medical History: Diagnosis Date Acute heart failure with preserved ejection fraction ([facility]) 06/20/2021 Bronchitis, chronic ([facility]) Carotid stenosis COPD (chronic obstructive pulmonary disease) ([facility]) Coronary atherosclerosis of [place] coronary vessel Diabetes mellitus, type II ([facility]) Diabetic leg ulcer ([facility]) MCC (current) use of antithrombotics/antiplatelets Mixed hyperlipidemia Neuropathy NSTEMI (non-ST elevated myocardial infarction) ([facility]) 06/21/2021 Obesity (BMI 30-39.9) Osteoarthritis Peptic ulceration Peripheral vascular disease ([facility]) Sleep apnea Past Surgical History: Procedure Laterality Date ANGIOGRAM, ARTERY, CORONARY N/A 06/22/2021 Surgeon: Larry Lord MD; Location: [facility]; Service: Cardiology - Ca rdiac Intervention Hemodynamics Peripheral Structural; Laterality: N/A; CATARACT SURGERY Bilateral 2009 CHOLECYSTECTOMY COLONOSCOPY W/ BIOPSIES AND POLYPECTOMY DILATION AND CURETTAGE FEMORAL ARTERY STENT PERCUTANEOUS CORONARY INTERVENTION (PCI) N/A 06/22/2021 Left Main - Normal. LAD - mild diffuse disease. LCX - mild diffuse disease. R CA - 90% mid, 50% distal RCA with 3.87s28de INGA, post-dilated with 3.5x15mm. Elias geon: Larry Lord MD; Location: [facility]; Service: Cardiology - Cardiac Intervention Hemodynamics Peripheral Structural; Laterality: N/A; PITUITARY EXCISION with radiation Final Medications: Current Outpatient Medications Medication Sig Dispense Refill ALPRAZolam (XANAX) 0.5 MG tablet Take 0.5 mg by mouth 3 (three) times a day. amitriptyline (ELAVIL) 25 MG tablet Take 25 mg by mouth nightly. aspirin 81 MG EC tablet Take 81 mg by mouth daily. atorvastatin (LIPITOR) 80 MG tablet Take 1 tablet (80 mg total) by mouth nig htly. 30 tablet 2 budesonide-formoteroL (SYMBICORT) 160-4.5 mcg/actuation inhaler 2 puffs calcium carbonate (OS-MINI) 500 mg calcium (1,250 mg) tablet Take 1 tablet by mouth 2 (two) times a day. dicyclomine (BENTYL) 10 MG capsule Take 10 mg by mouth 4 (four) times a day before meals and nightly. empagliflozin (JARDIANCE) 10 mg tablet TAKE ONE (1) TABLET BY MOUTH ONCE JONA LY famotidine (PEPCID) 20 MG tablet Take 20 mg by mouth every 12 (twelve) hours as needed. gabapentin (NEURONTIN) 400 MG capsule Take 400 mg by mouth 3 (three) times a day. HYDROcodone-acetaminophen (NORCO) 10-325 mg per tablet Take 1 tablet by mout h every 4 (four) hours as needed for pain. insulin aspart U-100 (NOVOLOG) 100 unit/mL injection Inject 10 Units under t he skin 3 (three) times a day before meals. insulin NPH-insulin regular (HUMULIN 70/30,NOVOLIN 70/30) 100 unit/mL (70-30 ) injection Inject 10 Units under the skin 2 (two) times a day. levothyroxine (SYNTHROID, LEVOTHROID) 88 MCG tablet Take 88 mcg by mouth jona ly. omega 3 fish oil (SEA OMEGA) DHA 200 mg-EPA 300 mg (1,000 mg) capsule Take 1 capsule by mouth 2 (two) times a day. pantoprazole (PROTONIX) 40 MG tablet Take 40 mg by mouth every morning. predniSONE (DELTASONE) 1 MG tablet Take 6 mg by mouth daily. torsemide (DEMADEX) 20 MG tablet Take 20 mg by mouth daily. clopidogreL (PLAVIX) 75 mg tablet Take 1 tablet (75 mg total) by mouth daily . 30 tablet 2 metoprolol tartrate (LOPRESSOR) 25 MG tablet Take 1 tablet (25 mg total) by mouth 2 (two) times a day. 60 tablet 2 No current facility-administered medications for this visit. Allergies Allergen Reactions Erythromycin Nausea And Vomiting Penicillin Hives and Throat edema Sulfa (Sulfonamide Antibiotics) Not specified Clarithromycin Nausea And Vomiting Keflex [Cephalexin] Rash Metoclopramide Hcl Nausea And Vomiting History reviewed. No pertinent family history. Social History: Social History Tobacco Use Smoking status: Current Every Day Smoker Packs/day: 1.00 Years: 50.00 Pack years: 50.00 Types: Cigarettes Smokeless tobacco: Never Used Substance Use Topics Alcohol use: Not Currently Drug use: Never Review of Systems Constitutional: Negative for chills and decreased appetite. HENT: Negative for ear discharge and ear pain. Eyes: Negative for discharge and redness. Cardiovascular: Negative for chest pain, irregular heartbeat and leg swelling. Respiratory: Negative for cough and sputum production. Endocrine: Negative for polyuria. Hematologic/Lymphatic: Does not bruise/bleed easily. Musculoskeletal: Negative for muscle cramps and stiffness. Gastrointestinal: Negative for constipation, diarrhea and hematochezia. Genitourinary: Negative for hematuria and nocturia. Neurological: Negative for disturbances in coordination, excessive daytime sleep iness and numbness. Psychiatric/Behavioral: Negative for depression. Allergic/Immunologic: Negative for environmental allergies. Vitals available and taken on home machine: Height: 1.778 m (5' 10") Weight:: 105.2 kg (232 lb) (checked 2 weeks ago) IBW(lbs.) (Calculated) : 151.02 BMI (Calculated): 33.3 Physical Exam No physical exam was performed in this telephone virtual visit. Virtual visits do not have the supported technology for provider to document exa ms of the heart and lungs, and may not have ability to fully document vital sign s. Cholesterol (mg/dL) Date Value 08/27/2021 145 06/22/2021 179 HDL Cholesterol (mg/dL) Date Value 08/27/2021 37 (A) 06/22/2021 44 Triglycerides (mg/dL) Date Value 08/27/2021 183 (A) 06/22/2021 110 LDL Cholesterol Date/Time Value Ref Range Status 08/27/2021 12:00 AM 80 0 - 100 mg/dL Final 06/22/2021 03:07 AM 113 (H) 0 - 99 mg/dL Final Encounter Diagnoses Name Primary? 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 Coronary artery disease, status post percutaneous coronary intervention in 0 06/2021 in the setting of non-ST elevation [place]. Continues on aspirin and Plavix f or 1 year, then continue aspirin and statin indefinitely. 2. Type 2 diabetes. Continues on Jardiance and insulin. 3. Hypertension, well controlled. Return to clinic with Paige Zamudio in 6 months and with me 1 year after that. Treatment goals, progress and next steps, as above, were discussed and mutually agreed upon with the patient/family. Thank you for allowing me to participate in Raul Quiroz's care. If I can be of any further assistance, please do not hesitate to contact me. I spent a total of 30 minutes during this virtual clinic encounter, including re view of records, pertinent labs, data and studies as well as discussing diagnost ic evaluation and work up, planned therapeutic intervention and future dispositi on of care. Sincerely, Kristopher Hare MD /tk PHONE SERVICE REPRESENTATIVE documented in this encounter Plan of Treatment Care Team Description Date Type Specialty Bill Zamudio, ALISHA [address] [facility] [address] [place] [address] 03/29/2022 Video Visit Cardiology documented as of this encounter Visit Diagnoses Diagnosis Atherosclerosis of [place] coronary gabrielle ry of [place] heart without angina pectoris - Primary S/P drug eluting coronary stent placeme nt Mixed hyperlipidemia MCC (current) use of antithrombot ics/antiplatelets Tobacco abuse Tobacco use disorder documented in this encounter Care Teams Start Date End Date Bushing Press Operator Relationship Specialty 06/20/21 Jayjay Rendon MD PCP - General Family [address] [place] [id number] documented as of this encounter
--- OUTSIDE RECORDS SUMMARY | 2021-10-21 09:48 | XMS REPORT | Encounter Summary ---
Author Author [facility] Organization [facility] Address Unknown Phone Unavailable Care Team Providers Care Tank Processor Name Role Phone Jayjay Rendon MD PCP Reason for Visit * Reason Comments Medication Refill Encounter Details Care Team Description Date Type Department Heidy Ortega MD [address] [place] [address] Med[facility] [address] [place] [address] Social History Date Tobacco Use Types Packs/Day Years Used Current Every Day Smoker Cigarettes 1 50 Smokeless Tobacco: Never Used Comments Alcohol Use Standard Drinks/Week Not Currently 0 (1 standard drink = 0.6 o z pure alcohol) Sex Assigned at Date Recorded Not on file documented as of this encounter Plan of Treatment Care Team Description Date Type Specialty Bill Zamudio, ALISHA [address] [facility] [address] [place] [address] 03/29/2022 Video Visit Cardiology documented as of this encounter Visit Diagnoses Not on filedocumented in this encounter Care Teams Start Date End Date Tank Processor Relationship Specialty 06/20/21 Jayjay Rendon MD PCP - General [address] [address] documented as of this encounter
--- OUTSIDE RECORDS SUMMARY | 2021-10-21 09:48 | XMS REPORT | Encounter Summary ---
Author Author [facility] Organization [facility] Address Unknown Phone Unavailable Care Team Providers Care Filter Tank Tender Helper Name Role Phone Jayjay Rendon MD PCP Reason for Visit * Reason Comments Medication Refill Encounter Details Care Team Description Date Type Department Heidy Ortega MD [address] [place] [address] Medication Refill 09/17/2021 [address]ill [facility] [address] [place] [address] Social History Date Tobacco Use Types Packs/Day Years Used Current Every Day Smoker 1 50 Sex Assigned at Date Recorded Not on file documented as of this encounter Plan of Treatment Care Team Description Date Type Specialty Bill Zamudio NP [address] [facility] [address] [place] [address] 03/29/2022 Video Visit Cardiology documented as of this encounter Visit Diagnoses Not on filedocumented in this encounter Care Teams Start Date End Date Filter Tank Tender Helper Relationship Specialty 06/20/21 Jayjay Rendon MD PCP - General [address] [address] documented as of this encounter
--- OUTSIDE RECORDS SUMMARY | 2021-10-21 09:48 | XMS REPORT | Encounter Summary ---
Author Author [facility] Organization [facility] Address Unknown Phone Unavailable Care Team Providers Care Theoretical Physicist Name Role Phone Jayjay Rendno MD PCP Reason for Visit * Reason Comments Medication Refill Encounter Details Care Team Description Date Type Department Heidy Ortega MD [address] [place] [address] Medication Refill 09/21/2021 Refill [facility] [address] [place] [address] Social History Date Tobacco Use Types Packs/Day Years Used Current Every Day Smoker 1 50 Sex Assigned at Date Recorded Not on file documented as of this encounter Plan of Treatment Care Team Description Date Type Specialty Bill Zamudio, CONCESSION ATTENDANT [address] [address] 03/29/2022 Video Visit Cardiology documented as of this encounter Visit Diagnoses Not on filedocumented in this encounter Care Teams Start Date End Date Theoretical Physicist Relationship Specialty 06/20/21 Jayjay Rendon MD PCP - General [address] [address] documented as of this encounter
--- OUTSIDE RECORDS SUMMARY | 2021-10-21 09:48 | XMS REPORT | Encounter Summary ---
Author Author [facility] Organization [facility] Address Unknown Phone Unavailable Care Team Providers Care Belt Buckle Maker Name Role Phone Jayjay Rendon MD PCP Reason for Visit * Reason Comments Medication Refill Encounter Details Care Team Description Date Type Department Heidy Ortega MD [address] [place] [address] Medication Refill 09/22/2021 Refill [facility] [address] [place] [address] Social History Date Tobacco Use Types Packs/Day Years Used Current Every Day Smoker 1 50 Sex Assigned at Date Recorded Not on file documented as of this encounter Plan of Treatment Care Team Description Date Type Specialty Bill Zamudio, MANAGER MUSIC [address] [address] 03/29/2022 Video Visit Cardiology documented as of this encounter Visit Diagnoses Not on filedocumented in this encounter Care Teams Start Date End Date Belt Buckle Maker Relationship Specialty 06/20/21 Jayjay Rendon MD PCP - General [address] [address] documented as of this encounter
--- OUTSIDE RECORDS SUMMARY | 2021-10-21 09:48 | XMS REPORT | Encounter Summary ---
Author Author [facility] Organization [facility] Address Unknown Phone Unavailable Care Team Providers Care Hop Picker Name Role Phone Jayjay Rendon MD PCP Reason for Visit * Reason Comments Medication Refill Encounter Details Care Team Description Date Type Department Heidy Ortega MD [address] [place] [address] Medication Refill 09/30/2021 [facility] [address] [place] [address] Social History Date Tobacco Use Types Packs/Day [...] Type Specialty Bill Zamudio, ALISHA [address] [facility] [address] [place] [address] 03/29/2022 Video Visit Cardiology documented as of this encounter Visit Diagnoses Not on filedocumented in this encounter Care Teams Start Date End Date Hop Picker Relationship Specialty 06/20/21 Jayjay Rendon MD PCP - General [address] [address] documented as of this encounter
--- OUTSIDE RECORDS SUMMARY | 2021-10-21 09:48 | XMS REPORT | Encounter Summary ---
Author Author [facility] Organization [facility] Address Unknown Phone Unavailable Care Team Providers Care Delicatessen Slicer Name Role Phone Jayjay Rendon MD PCP Reason for Visit * Reason Onset Date Comments Medication Refill 09/30/2021 Plavix Encounter Details Care Team Description Date Type Department Elayne Guaman RN Medication Refill (Plavix) 09/30/2021 Telephone [facility] [address] [facility] [address] [employer] [place] [address] Social History Date Tobacco Use Types Packs/Day Years Used Current Every Day Smoker Cigarettes 1 50 Smokeless Tobacco: Never Used Comments Alcohol Use Standard Drinks/Week Not Currently 0 (1 standard drink = 0.6 o z pure alcohol) Sex Assigned at Date Recorded Not on file documented as of this encounter Miscellaneous Notes * Telephone Encounter - Elayne Guaman RN - 09/30/2021 12:01 PM [facility] Live call from Tati with [facility], patient contacted them for a refi ll on Plavix but they received notification that her RX was cancelled on 021. Did note RX was entered but not sent or printed so instructed will send ne w RX, Tati verbalized understanding. Refill sent. MOWER documented in this encounter Plan of Treatment Care Team Description Date Type Specialty Bill Zamudio, MACHINE SHOP WORKER [address] [facility] [address] [place] [address] 03/29/2022 Video Visit Cardiology documented as of this encounter Visit Diagnoses Not on filedocumented in this encounter Care Teams Start Date End Date Delicatessen Slicer Relationship Specialty 06/20/21 Jayjay Rendon MD PCP - General [address] [address] documented as of this encounter
--- OUTSIDE RECORDS SUMMARY | 2021-10-21 09:48 | XMS REPORT | Encounter Summary ---
Author Author [facility] Organization [facility] Address Unknown Phone Unavailable Care Team Providers Care Ticket Marker Name Role Phone Jayjay Rendon MD PCP Encounter Details Care Team Description Date Type Department Kat Steel RN 09/21/2021 [facility] [address] [place] [address] Social History Date Tobacco Use Types Packs/Day Years Used Current Every Day Smoker 1 50 Sex Assigned at Date Recorded Not on file documented as of this encounter Plan of Treatment Care Team Description Date Type Specialty Bill Zamudio NP [address] [facility] [address] [place] [address] 03/29/2022 Video Visit Cardiology documented as of this encounter Procedures Comments Procedure Name Priority Date/Time Associated Diag nosis CV US LOWER EXTREMITY Routine 06/11/2021 ARTERIAL DUPLEX OUTSIDE RECORD CV US CAROTID OUTSIDE Routine 06/11/2021 RECORD CV US CAROTID OUTSIDE Routine 06/06/2020 RECORD ECHO OUTSIDE RECORD Routine 01/16/2018 CV MPI OUTSIDE RECORD Routine 06/02/2016 documented in this encounter Results * CV US Lower Extremity Arterial Duplex Outside Record (06/11/2021) Modality Anatomical Region Laterality Ultrasound Impressions Kat Steel RN - 06/11/2021 Right: Segmental pressures and waveforms reveal obstruction at aortoiliofemoral and tibial levels. Indices fall within claudication category. Duplex scan reveals less than 50% diameter reduction proximal common femoral artery. There is occlusion of the superficial femoral artery with collateral flow to the distal superficial femoral and popliteal artery. Unable to visualize common iliac stent due to shadowing, depth. Left: Segmental waveforms reveal obstruction at aortoiliofemoral and tibial levels. Indices fallwithin claudication category. Duplex scan reveals greater than 50% diameter reduction proximal common femoral artery. Patent superficial femoral artery stents with less than 50% stenosis. There is less than 50% stenosis proximal politeal artery. Unable to visualize common iliac stent due to shadowing, depth. [facility] * CV US Carotid Outside Record (06/11/2021) Modality Anatomical Region Laterality Ultrasound Impressions Kat Steel RN - 06/11/2021 Right: Severe disease (non critical) of 60-79% with severe velocities. B mode measurement reveals a 68% diameter reduction in proximal internal carotid artery. Antegrade vertebral flow. Left: Moderate disease of 40-59% with moderate velocities. Antegrade vertebral flow. Essentially unchanged. [facility] * CV US Carotid Outside Record (06/06/2020) Modality Anatomical Region Laterality Ultrasound Impressions Kat Steel RN - 06/06/2020 Right: Severe disease (non critical) of 60-79% with severe velocities. B mode measurement reveals a 65% diameter reduction in proximal internal carotid a rtery. Antegrade vertebral flow. Left: Moderate disease of 40-59% with moderate velocities. Unable to visualize vertebral flow. Essentially unchanged. Based on today's results, a six month follow up is recommended if the patient remains asymptomatic. [place] * Echo Outside Record (01/16/2018) Ejection Fraction Modality Anatomical Region Laterality Ultrasound Impressions Kat Steel RN - 01/16/2018 Mild aortic stenosis with mild mitral regurgitation, trace tricuspid regurgitation, and trace pulmonic regurgitation, and mild LVH, and mild left atrial enlargement. [facility] * CV MPI Outside Record (06/02/2016) Ejection Fraction Modality Anatomical Region Laterality Nuclear Medicine Impressions Kat Steel RN - 06/02/2016 No evidence of myocardial infarction. No evidence of pharmacologically induced myocardial ischemia. Normal resting LV cavity size and normal wall motion. [facility] documented in this encounter Visit Diagnoses Diagnosis shelter (current) use of antithrombot ics/antiplatelets S/P drug eluting coronary stent placeme nt Mixed hyperlipidemia Peripheral vascular disease (HCC) Unspecified peripheral vascular disease Obesity (BMI 30-39.9) documented in this encounter Care Teams Start Date End Date Ticket Marker Relationship Specialty 06/20/21 Jayjay Rendon MD PCP - [address] [place] [address] documented as of this encounter
[2021-10-21 10:05] LABS: HEMATOCRIT 34 % (35-52); HEMOGLOBIN 11.2 g/dL (11.5-16.0); MEAN CORPUSCULAR HEMOGLOBIN 28 pg (25-34); MEAN CORPUSCULAR HGB CONC 33 g/dL (32-36); MEAN CORPUSCULAR VOLUME 84 fL (80-99); MEAN PLATELET VOLUME 9.9 fL (9.0-12.2); PLATELET COUNT 242 10^3/uL (130-400); WHITE BLOOD COUNT 23.5 10^3/uL (4.3-11.0)
[2021-10-21 10:06] LABS: BASOPHILS # (AUTO) 0.1 10^3/uL (0.0-0.1); BASOPHILS % (AUTO) 0 % (0-10); EOSINOPHILS % (AUTO) 0 % (0-10); LYMPHOCYTES # (AUTO) 3.3 X 10^3 (1.0-4.0); LYMPHOCYTES % (AUTO) 14 % (12-44); MONOCYTES # (AUTO) 1.6 X 10^3 (0.0-1.0); MONOCYTES % (AUTO) 7 % (0-12); NEUTROPHILS # (AUTO) 18.2 X 10^3 (1.8-7.8); NEUTROPHILS % (AUTO) 78 % (42-75)
--- NOTE | 2021-10-21 10:16 | ED General ---
General Stated Complaint: FEVER; SOB; NAUSEA History of Present Illness Date Seen by Provider: Oct 21, 2021 Time Seen by Provider: 10:11 Initial Comments Patient presenting to emergency department via EMS for evaluation of altered mental status hypoxia and generally not feeling well. Patient is alert and oriented x2 and gives incomplete and inconsistent history. She initially told me she does not know why she is here she has no complaints however she told EMS she cannot breathe and she told the nurse that she has abdominal pain and diarrhea. She told me that she has a history of COPD and smokes cigarettes in addition she has cardiac disease with congestive heart failure. She denies any coughing to me and on my review of systems she denies any complaints. She does not know how long she has been feeling sick. She says she lives with family members and they would know how long she has felt sick. She has had all 3 of her Covid shots. She had a room air oxygen saturation of 70% per EMS and she was put on 6 L and had a saturation of 100% and currently the emergency department she has an oxygen saturation of 96% on 4 L. She says she generally does not wear oxygen at home only at night. She also is hypotensive with poor peripheral perfusion at this time. Allergies and Home Medications Allergies Coded Allergies: Penicillins (Unverified Adverse Reaction, Unknown, 01/16/21) cephalexin (Unverified Adverse Reaction, Unknown, 01/16/21) ciprofloxacin (Unverified Adverse Reaction, Unknown, 01/16/21) erythromycin base (Unverified Adverse Reaction, Unknown, 01/16/21) Patient Home Medication List Home Medication List Reviewed: Yes Potassium Chloride (Potassium Chloride) 10 Meq Capsule.er, 10 MEQ PO DAILY Prescribed by: CANDY LE on 07/16/21 1618 Review of Systems Review of Systems Constitutional: malaise, weakness EENTM: no symptoms reported Respiratory: short of breath Cardiovascular: no symptoms reported Gastrointestinal: abdominal pain, diarrhea Genitourinary: no symptoms reported Musculoskeletal: no symptoms reported Skin: no symptoms reported Psychiatric/Neurological: No Symptoms Reported All Other Systems Reviewed Negative Unless Noted: Yes Past Nnaqyij-Xzpnfd-Zowmaq Hx Immunizations Up To Date Tetanus Booster (TDap): Unknown First/Initial COVID19 Vaccinat: 01/2021 Second COVID19 Vaccination Lon: 01/2021 Seasonal Allergies Seasonal Allergies: No Past Medical History Surgery/Hospitalization HX: HTN, DM, COPD with O2 dependency at night, frequent falls, Hypothyroidism Surgeries: Yes (Bilat knee arthroscopy, L TKR, Bladder suspension, Pituitary tumor exc) Bladder Surgery, Gallbladder, Joint Replacement, Orthopedic Respiratory: Yes (Tobaccoism) COPD Cardiac: Yes High Cholesterol, Hypertension Neurological: No Genitourinary: Yes (Bladder suspension for incont) Gastrointestinal: Yes (EGD/Colonoscopy; 4 ulcers) Ulcer Musculoskeletal: Yes Arthritis Endocrine: Yes Hypothyroidsim, Diabetes, Non-Insulin dep HEENT: No Cancer: No Psychosocial: Yes Anxiety Integumentary: No (thin skin with numerous skin tears/ecchymosis) Blood Disorders: No Physical Exam Vital Signs Vital Signs - First Documented 10/21/21 09:43 Temp 36.7 Pulse 105 Resp 22 B/P (MAP) 81/47 (58) Pulse Ox 98 O2 Delivery Nasal Cannula O2 Flow Rate 2.00 Capillary Refill : Height, Weight, BMI Height: '" Weight: lbs. oz. kg; 34.00 BMI Method: General Appearance: Chronically ill, Moderate Distress, Obese Eyes: Bilateral Eye PERRL, Bilateral Eye EOMI HEENT: Pharynx Normal Neck: Supple Respiratory: Decreased Breath Sounds, Expiration, Inspiration, Respiratory Dist ress, Wheezing Cardiovascular: Regular Rate, Rhythm Gastrointestinal: Non Tender, Soft Back: Normal Inspection Extremity: Slow Capillary Refill Neurologic/Psychiatric: Alert, Disoriented Skin: Cool Focused Exam Lactate Level 10/21/21 09:50: Lactic Acid Level 2.22*H 10/21/21 12:50: Lactic Acid Level Laboratory Tests Test 10/21/21 09:50 10/21/21 12:50 Lactic Acid Level 2.22 MMOL/L (0.50-2.00) *H Procedures/Interventions Lumen: triple Central Line Procedure: betadine prep, sterile drapes applied, sterile dressing applied Position: internal jugular (R) Anesthesia: Lidocaine Volume Anesthetic (ccs): 8 Complications: none Post Position: sutured, good blood return, position confirmed w/ CXR Patient prepped and draped in normal sterile fashion and 8 cc of lidocaine with epinephrine was used to anesthetize the site and ultrasound was utilized to identify the right internal jugular vein and using Seldinger technique a central line was placed with no complications. Suture Size: 4-0 Progress/Results/Core Measures Suspected Sepsis SIRS Temperature: Pulse: Respiratory Rate: Laboratory Tests 10/21/21 09:50: White Blood Count 23.5H Blood Pressure / Mean: 10/21/21 09:50: Lactic Acid Level 2.22*H 10/21/21 12:50: Laboratory Tests 10/21/21 09:50: Creatinine 1.58H, INR Comment 1.1, Platelet Count 242, Total Bilirubin 0.8 Results/Orders Lab Results Laboratory Tests Test 10/21/21 09:50 10/21/21 10:06 10/21/21 10:40 10/21/21 12:50 Range/Units White Blood Count 23.5 H 4.3-11.0 10^3/uL Red Blood Count 4.03 3.80-5.11 10^6/uL Hemoglobin 11.2 L 11.5-16.0 g/dL Hematocrit 34 L 35-52 % Mean Corpuscular Volume 84 80-99 fL Mean Corpuscular Hemoglobin 28 25-34 pg Mean Corpuscular Hemoglobin Concent 33 32-36 g/dL Red Cell Distribution Width 16.4 H 10.0-14.5 % Platelet Count 242 130-400 10^3/uL Mean Platelet Volume 9.9 9.0-12.2 fL Immature Granulocyte % (Auto) 1 % Neutrophils (%) (Auto) 78 H 42-75 % Lymphocytes (%) (Auto) 14 12-44 % Monocytes (%) (Auto) 7 0-12 % Eosinophils (%) (Auto) 0 0-10 % Basophils (%) (Auto) 0 0-10 % Neutrophils # (Auto) 18.2 H 1.8-7.8 X 10^3 Lymphocytes # (Auto) 3.3 1.0-4.0 X 10^3 Monocytes # (Auto) 1.6 H 0.0-1.0 X 10^3 Eosinophils # (Auto) 0.0 0.0-0.3 10^3/uL Basophils # (Auto) 0.1 0.0-0.1 10^3/uL Immature Granulocyte # (Auto) 0.2 H 0.0-0.1 10^3/uL Neutrophils % (Manual) 83 % Lymphocytes % (Manual) 7 % Monocytes % (Manual) 4 % Basophils % (Manual) 2 % Myelocytes % 1 % Band Neutrophils 2 % Nucleated Red Blood Cells 1 Reactive Lymphocytes 1 % Platelet Estimate NORM Polychromasia SLIGHT Anisocytosis SLIGHT Blood Morphology Comment NORM Prothrombin Time 15.0 H 12.2-14.7 SEC INR Comment 1.1 0.8-1.4 Activated Partial Thromboplast Time 34 24-35 SEC D-Dimer 2.19 H 0.00-0.49 UG/ML Sodium Level 122 *L 135-145 MMOL/L Potassium Level 3.4 L 3.6-5.0 MMOL/L Chloride Level 83 L 98-107 MMOL/L Carbon Dioxide Level 27 21-32 MMOL/L Anion Gap 12 5-14 MMOL/L Blood Urea Nitrogen 13 7-18 MG/DL Creatinine 1.58 H 0.60-1.30 MG/DL Estimat Glomerular Filtration Rate 32 BUN/Creatinine Ratio 8 Glucose Level 155 H 70-105 MG/DL Lactic Acid Level 2.22 *H 0.50-2.00 MMOL/L Calcium Level 8.3 L 8.5-10.1 MG/DL Corrected Calcium 9.5 8.5-10.1 MG/DL Total Bilirubin 0.8 0.1-1.0 MG/DL Aspartate Amino Transf (AST/SGOT) 13 5-34 U/L Alanine Aminotransferase (ALT/SGPT) 6 0-55 U/L Alkaline Phosphatase 122 40-136 U/L Troponin I < 0.30 <0.30 NG/ML Pro-B-Type Natriuretic Peptide 01322.0 H <75.0 PG/ML Total Protein 7.0 6.4-8.2 GM/DL Albumin 2.5 L 3.2-4.5 GM/DL Lipase 7 L 8-78 U/L Urine Color YELLOW Urine Clarity TURBID Urine pH 5.5 5-9 Urine Specific [place] 1.020 1.016-1.022 Urine Protein 1+ H NEGATIVE Urine Glucose (UA) 3+ H NEGATIVE Urine Ketones TRACE H NEGATIVE Urine Nitrite NEGATIVE NEGATIVE Urine Bilirubin NEGATIVE NEGATIVE Urine Urobilinogen 0.2 < = 1.0 MG/DL Urine Leukocyte Esterase 2+ H NEGATIVE Urine RBC (Auto) 2+ H NEGATIVE Urine RBC 2-5 H /HPF Urine WBC TNTC H /HPF Urine Squamous Epithelial Cells RARE /HPF Urine Crystals NONE /LPF Urine Bacteria LARGE H /HPF Urine Casts NONE /LPF Urine Mucus LARGE H /LPF Urine Culture Indicated YES Influenza Type A Antigen NEGATIVE NEGATIVE Influenza Type B Antigen NEGATIVE NEGATIVE My Orders Orders - EDEN SIMMONS DO Ct [facility] (10/21/21 09:45) Iv/Invasive Line Insertion .IV start (10/21/21 09:45) Cbc With Automated Diff (10/21/21 09:45) Comprehensive Metabolic Panel (10/21/21 09:45) Ua Culture If Indicated (10/21/21 09:45) Ekg Tracing (10/21/21 09:45) Lactic Acid Analyzer (10/21/21 09:45) Fibrin Degradation Products (10/21/21 09:45) Arterial Blood Gas (10/21/21 09:45) Blood Culture (10/21/21 09:45) Lipase (10/21/21 09:45) Partial Thromboplastin Time (10/21/21 09:45) Probnp Fs (10/21/21 09:45) Protime With Inr (10/21/21 09:45) Troponin I Fs (10/21/21 09:45) Chest 1 View Ap/Pa Only (10/21/21 09:45) Lactated Ringers (Lr 1000 Ml Iv Solution (10/21/21 09:45) Albuterol/Ipra Inhalation Soln (Duoneb I (10/21/21 09:45) Methylprednisolone Sod Succ (Solu-Medrol (10/21/21 09:45) Svn Small Volume Nebulizer (10/21/21 09:45) Manual Differential (10/21/21 09:50) Lactated Ringers (Lr 1000 Ml Iv Solution (10/21/21 10:45) Vancomycin Injection (Vancomycin Injecti (10/21/21 10:45) Meropenem (Merrem 1000 Mg) (10/21/21 11:15) Influenza A & B Antigens (10/21/21 11:12) Norepinephrine 8 Mg/250 Ml (Norepinephri (10/21/21 11:30) Urine Culture (10/21/21 10:06) Ct Laura Chest/Noang Abd-Pelv W (10/21/21 10:56) Scopolamine Patch (Transderm-Scop Patch) (10/21/21 11:30) Iohexol Injection (Omnipaque 350 Mg/Ml 1 (10/21/21 11:45) Received Contrast (Hold Metformin- Contr (10/21/21 11:45) Sodium Chloride Flush (Catheter Flush Sy (10/21/21 11:45) Ns (Ivpb) (Sodium Chloride 0.9% Ivpb Bag (10/21/21 11:45) Lidocaine/Epi 2% 1:100,000 (Xylocaine/Ep (10/21/21 11:44) Fentanyl Inj (Sublimaze Injection) (10/21/21 12:15) Lactated Ringers (Lr 1000 Ml Iv Solution (10/21/21 12:45) Blood Culture (10/21/21 12:50) Medications Given in ED Current Medications Medications Dose Ordered Sig/Shorty Route Start Time Stop Time Status Last Admin Dose Admin Albuterol/ Ipratropium 3 ml ONCE ONCE INH 10/21/21 09:45 10/21/21 09:49 DC 10/21/21 10:12 3 ML Fentanyl Citrate 75 mcg ONCE ONCE IVP 10/21/21 12:15 10/21/21 12:16 DC 10/21/21 12:18 75 MCG Iohexol 100 ml ONCE ONCE IV 10/21/21 11:45 10/21/21 11:46 DC 10/21/21 13:03 100 ML Methylprednisolone Sodium Succinate 125 mg ONCE ONCE IM 10/21/21 09:45 10/21/21 09:49 DC 10/21/21 10:12 125 MG Scopolamine 1.5 mg ONCE ONCE TD 10/21/21 11:30 10/21/21 11:31 DC 10/21/21 12:12 1.5 MG Sodium Chloride 10 ml NEEDED PRN IV 10/21/21 11:45 10/21/21 13:03 10 ML Sodium Chloride 100 ml ONCE ONCE IV 10/21/21 11:45 10/21/21 11:46 DC 10/21/21 13:03 100 ML Vancomycin HCl 1500 mg/Sodium Chloride 500 ml @ 257.5 mls/ hr ONCE ONCE IV 10/21/21 10:45 10/21/21 12:41 DC 10/21/21 12:55 257.5 MLS/HR Vital Signs/I&O 10/21/21 10/21/21 10/21/21 09:43 09:43 12:58 Temp 36.7 Pulse 105 84 Resp 22 B/P (MAP) 81/47 (58) 95/32 Pulse Ox 98 O2 Delivery Nasal Cannula Nasal Cannula O2 Flow Rate 2.00 6.00 Capillary Refill : Progress Note : Progress Note Patient appears to be ill with hypoxia and hypotension. She appears better thus far in the emergency department but she does have a MAP of 59 so I will give her at least 2 L of fluid and then assess the need for pressors. Patient became delirious and pulled out both of her IVs and no other peripheral access was able to be accomplished so a central line was placed as she continues to be hypotensive. After starting the patient on norepinephrine her map improved to 79 and her oxygen saturation continues to be in the mid 90s. Patient is complaining of abdominal pain so CTs are pending of her chest abdomen pelvis. Patient will be admitted to the ICU at [facility]. Of note finding appropriate antibiotics for the patient was difficult given she has allergies to penicillin and cephalosporins fluoroquinolones and macrolides so I start her on vancomycin and meropenem and she appeared to tolerate those antibiotics well. I did update the family and spoke to both Dr. Hernandez and Dr. Tavarez. Critical Care Note Critical Care Total Time (minutes) 45 Include speaking to family consultants reviewing records and time spent transferring patient. Departure Impression Primary Impression: Respiratory failure Qualified Codes: J96.01 - Acute respiratory failure with hypoxia Additional Impressions: Septic shock Pneumonia Qualified Codes: J18.9 - Pneumonia, unspecified organism UTI (urinary tract infection) Qualified Codes: N39.0 - Urinary tract infection, site not specified Hyponatremia Lactic acid acidosis Acute encephalopathy Disposition: ADMITTED INPATIENT Condition: Critical Transfer Transfer Reason: Exceeds level of care Time Spoke to Accepting Phy: 13:00 Transfer Progress Notes I spoke to Dr. Hernandez who agreed to accept patient and she asked me to speak to the eICU who is Dr. Tavarez and he agreed with treatment thus far. Transfer Facility: [facility] Method of Transfer: EMS Departure-Patient Inst. Referrals: MAYCOL CLAIRE MD (PCP/Family) Primary Care Physician EDEN SIMMONS DO Oct 21, 2021 10:16
--- NOTE | 2021-10-21 10:21 | Diagnostic Imaging Report ---
PROCEDURE: CT head without contrast. TECHNIQUE: Multiple contiguous axial images were obtained through the brain without the use of intravenous contrast. Auto Exposure Controls were utilized during the CT exam to meet ALARA standards for radiation dose reduction. INDICATION: Altered mental status Ventricles and sulci are within normal limits for size. No intracranial hemorrhage is identified. There is mild low-density in the deep white matter of the left frontal lobe which may represent gliosis. There is no abnormal mass effect or shift of midline structures. There is opacification of sphenoid air cells. Calvarium appears to be intact. IMPRESSION: Probable chronic microvascular ischemia in the deep white matter of the left frontal lobe. Clinical correlation would be useful. 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 Dictated by: Dictated on workstation # [id number]
--- NOTE | 2021-10-21 10:28 | Diagnostic Imaging Report ---
EXAMINATION: Chest 1 view HISTORY: hypoxia, soa COMPARISON: 07/16/2021 FINDINGS: Heart size and pulmonary vasculature are normal. There are mild patchy interstitial opacities seen throughout both lungs. No obvious pleural effusion or pneumothorax. The osseous structures are intact. IMPRESSION: 1. Patchy interstitial opacities seen throughout both lungs which can be seen with pulmonary edema, atypical infection, or atelectasis. Dictated by: Dictated on workstation # [id number]
[2021-10-21 10:29] LABS: FIBRIN DEGRADATION PRODUCTS 2.19 UG/ML (0.00-0.49); INR 1.1 (0.8-1.4)
[2021-10-21 10:31] LABS: BAND NEUTROPHILS 2 %; BASOPHILS % (MANUAL) 2 %; LYMPHOCYTES % (MANUAL) 7 %; MONOCYTES % (MANUAL) 4 %; MYELOCYTES % 1 %; NEUTROPHILS % (MANUAL) 83 %; REACTIVE LYMPHOCYTES 1 %
[2021-10-21 10:32] LABS: ANISOCYTOSIS SLIGHT; NUCLEATED RED BLOOD CELLS 1; PLATELET ESTIMATE NORM; POLYCHROMASIA SLIGHT; RBC MORPH NORM
[2021-10-21 10:34] LABS: BILIRUBIN,URINE NEGATIVE (NEGATIVE); CLARITY,URINE TURBID; COLOR,URINE YELLOW; GLUCOSE, URINE (UA) 3+ (NEGATIVE); KETONES,URINE TRACE (NEGATIVE); LEUKOCYTE ESTERASE ,URINE 2+ (NEGATIVE); NITRITE,URINE NEGATIVE (NEGATIVE); PH,URINE 5.5 (5-9); PROTEIN,URINE 1+ (NEGATIVE)
[2021-10-21] MEDS ORDERED: VANCOMYCIN INJECTION 1,500 MG in NS IV 500 ML 500 ML IV ONE (10:45)
[2021-10-21 10:53] LABS: ALKALINE PHOSPHATASE 122 U/L (40-136); BILIRUBIN,TOTAL 0.8 MG/DL (0.1-1.0); BUN/CREATININE RATIO 8; CALCIUM 8.3 MG/DL (8.5-10.1); CARBON DIOXIDE 27 MMOL/L (21-32); CHLORIDE 83 MMOL/L (98-107); CREATININE SERUM 1.58 MG/DL (0.60-1.30); GFR ESTIMATED 32; GLUCOSE 155 MG/DL (70-105); POTASSIUM 3.4 MMOL/L (3.6-5.0); SODIUM 122 MMOL/L (135-145)
[2021-10-21 10:54] LABS: ALANINE AMINOTRANSFERASE 6 U/L (0-55); ALBUMIN 2.5 GM/DL (3.2-4.5); LIPASE 7 U/L (8-78)
[2021-10-21] MEDS ORDERED: MEROPENEM 1,000 MG in NS (IVPB) 100 ML IV ONE (11:15)
[2021-10-21 11:19] LABS: BACTERIA,URINE LARGE /HPF; SQUAMOUS EPITHELIAL CELL,UR RARE /HPF; WBC,URINE TNTC /HPF
[2021-10-21] MEDS ORDERED: NOREPINEPHRINE 8 MG/250 ML 250 ML IV SCH (11:30)
[2021-10-21] MEDS ORDERED: SCOPOLAMINE 1.5 MG (TRANSDERM-SCOP) PATCH TD ONE (11:30)
[2021-10-21] MEDS ORDERED: LIDOCAINE/EPI 2% 1:100,00 (XYLOCAINE) 20 ML VIAL ONE (11:44)
[2021-10-21] MEDS ORDERED: NS 100 ML (IVPB) BAG IV ONE (11:45)
[2021-10-21] MEDS ORDERED: CATHETER FLUSH 10 ML SYR IV PRN (11:45)
[2021-10-21] MEDS ORDERED: HOLD METFORMIN - RECEIVED CONTRAST 20 ML VIAL IV SCH (11:45)
[2021-10-21] MEDS ORDERED: IOHEXOL 350 MG/ML 100 ML (OMNIPAQUE 350) VIAL IV ONE (11:45)
[2021-10-21] MEDS ORDERED: fentaNYL INJ 100 MCG/2 ML AMP IVP ONE (12:15)
--- NOTE | 2021-10-21 13:12 | Diagnostic Imaging Report ---
EXAMINATION: CT angiography of the chest, CT of the abdomen and pelvis. TECHNIQUE: Contrast enhanced thin section helical images were obtained through the chest, abdomen and pelvis with intravenous contrast timed for the optimal opacification of the arterial structures of the chest per CTA protocol. Post-processing, reconstructions and interpretation of angiographic images of the vessels was performed. 3D MIP reconstructions were performed and reviewed. All CT scans use one or more of the following dose optimizing techniques: Automated exposure control, MA and/or KvP adjustment based on a patient size and exam type, or iterative reconstruction. HISTORY: SOA, hypoxia. COMPARISON: None available. FINDINGS: Vascular: No filling defects are seen within the visualized pulmonary arteries. Evaluation of the distal pulmonary arteries is limited secondary to respiratory motion and consolidation. There are vascular calcifications of the aorta and coronary vessels without aneurysm. Thyroid: The thyroid is normal. Mediastinum: Heart size is normal without significant pericardial effusion. No suspicious lymphadenopathy. Lungs and airways: There are patchy ground-glass opacities seen throughout both lungs. Trace bilateral pleural effusions with adjacent atelectasis or consolidation. No pneumothorax. The airways are normal. Solid organs: The liver is normal without focal lesion. The gallbladder is surgically absent. There is no biliary ductal dilation. Pancreas is normal. Spleen is normal. Adrenal glands are normal. The kidneys are normal without hydronephrosis. Bowel: The stomach and small bowel are normal without obstruction. There is diffuse wall thickening and inflammatory stranding of the colon. There is more prominent inflammatory stranding seen near the cecum with evidence of presumed air within the venous plexus versus free air. Peritoneum: No free fluid or loculated fluid collection. No suspicious lymphadenopathy. Vasculature: Calcification of the aorta without aneurysm. Musculoskeletal: Degenerative changes of the spine without suspicious osseous lesion or compression fracture. Pelvis: The uterus and adnexa are normal. Urinary bladder is decompressed with a Parker catheter. IMPRESSION: 1. Diffuse wall thickening of the colon with greatest area of inflammatory stranding seen near the cecum. Findings are concerning for an infectious or inflammatory colitis. There are findings suggestive of venous air adjacent to the cecum, less likely free air. 2. Patchy ground-glass opacities throughout both lungs which can be seen with pulmonary edema or atypical infection. Dictated by: Dictated on workstation # [id number]
[2021-10-21] MEDS ORDERED: NS IV 1000 ML 1,000 ML IV SCH (14:30)
[2021-10-21] MEDS ORDERED: ACETAMINOPHEN 325 MG TABLET PO PRN (14:30)
[2021-10-21] MEDS ORDERED: VANCOMYCIN INJECTION 1,000 MG in NS (IVPB) 250 ML IV SCH (14:30)
[2021-10-21] MEDS ORDERED: LOPERAMIDE 2 MG (IMODIUM) TABLET PO PRN (14:30)
[2021-10-21] MEDS: fentaNYL INJ 100 MCG/2 ML AMP IVP PRN (14:50)
--- NOTE | 2021-10-21 14:56 | Consultation-Cardiology ---
HPI-Cardiology Cardiology Consultation: Date of Consultation 10/21/21 Time Seen by a Provider: 14:30 Date of Admission 10-21-21 Attending Physician Katya Hernandez DO Admitting Physician Jayjay Rendon MD Consulting Physician Uri Randall MD HPI: Chief Complaint: SOB Ms. Quiroz is a 71 yr old female admitted to ICU 2 from the ED with sepsis. Per nurse and patient. She has had progressive dyspnea over the course of the last few days. Family called EMS d/t AMS this morning. EMS found her to be hypoxic (O2 sats in the 70's) and hypotensive. She reports she was having diarrhea this morning. She continues to smoke cigs approx 1 ppd. She denies any c/o CP or palpitations. She has bilat LE swelling. She has multiple skin tears and abrasion to hands/arms/legs bilat d/t frequent falls at home. She reports frequent cough. No report of syncope or near syncope. She reports gen weakness. Nursing reports she was having abdominal pain, but she is currently pain free. Review of Systems-Cardiology Review of Systems Constitutional: No chills, No fever; lightheadedness, malaise Eyes: No vision change Ears/Nose/Throat: No epistaxis, No recent hearing loss Respiratory: As described under HPI Cardiovascular: As described under HPI Gastrointestinal: As described under HPI Genitourinary: no symptoms reported; No hematuria Musculoskeletal: joint pain Skin: As described under HPI Psychiatric/Neurological: No seizure, No focal weakness, No syncope Hematologic: No bleeding abnormalities All Other Systems Reviewed Negative Unless Noted: Yes GMP-Neqsbk-Erzujf Hx Patient Social History Smoking Status: Current Everyday Smoker 2nd Hand Smoke Exposure: Yes Have you traveled recently?: No Alcohol Use?: No Pt feels they are or have been: No Tobacco type used: Cigarettes Immunizations Up To Date Tetanus Booster (TDap): Unknown Past Medical History PMH As described under Assessment. Family Medical History Family Medical History: She reports her mother had CHF. Allergies and Home Medications Allergies Coded Allergies: Penicillins (Unverified Adverse Reaction, Unknown, 01/16/21) cephalexin (Unverified Adverse Reaction, Unknown, 01/16/21) ciprofloxacin (Unverified Adverse Reaction, Unknown, 01/16/21) erythromycin base (Unverified Adverse Reaction, Unknown, 01/16/21) Patient Home Medication List Alprazolam (Alprazolam) 0.5 Mg Tablet, 0.5 MG PO TID PRN for ANXIETY, (Reported) Entered as Reported by: FARHEEN PASTOR on 10/22/21 102 Last Action: Reviewed Amitriptyline HCl (Amitriptyline HCl) 25 Mg Tablet, 25 MG PO HS, (Reported) Entered as Reported by: FARHEEN PASTOR on 10/22/21 102 Last Action: Reviewed Aspirin (Aspirin EC) 81 Mg Tablet.dr, 81 MG PO DAILY, (Reported) Entered as Reported by: FARHEEN PASTOR on 10/22/21 102 Last Action: Reviewed Atorvastatin Calcium (Atorvastatin Calcium) 80 Mg Tablet, 80 MG PO HS, (Reported) Entered as Reported by: FARHEEN PASTOR on 10/22/21 102 Last Action: Reviewed Budesonide/Formoterol Fumarate (Symbicort 160-4.5 Mcg Inhaler) 10.2 Gm Hfa.aer.ad, 2 PUFF INH BID, (Reported) Entered as Reported by: FARHEEN PASTOR on 10/22/21 1301 Last Action: Reviewed Calcium Carbonate (Calcium) 600 Mg Tablet, 600 MG PO DAILY, (Reported) Entered as Reported by: FARHEEN PASTOR on 10/22/21 102 Last Action: Reviewed Clopidogrel Bisulfate (Clopidogrel) 75 Mg Tablet, 75 MG PO DAILY, (Reported) Entered as Reported by: FARHEEN PASTOR on 10/22/21 102 Last Action: Reviewed Dicyclomine HCl (Dicyclomine HCl) 10 Mg Capsule, 10 MG PO QIDACHS, (Reported) Entered as Reported by: FARHEEN PASTOR on 10/22/21 102 Last Action: Reviewed Empagliflozin (Jardiance) 10 Mg Tablet, 10 MG PO DAILY, (Reported) Entered as Reported by: FARHEEN PASTOR on 10/22/21 102 Last Action: Reviewed Gabapentin (Gabapentin) 400 Mg Capsule, 400 MG PO TID, (Reported) Entered as Reported by: FARHEEN PASTOR on 10/22/21 102 Last Action: Reviewed Hydrocodone/Acetaminophen (Hydrocodone-Acetamin 5-325 mg) 1 Each Tablet, 1 EA PO Q6H PRN for PAIN-MODERATE (5-7), (Reported) Entered as Reported by: FARHEEN PASTOR on 10/22/21 102 Last Action: Reviewed Insulin NPH Human Isophane (Novolin N) 100 Unit/1 Ml Vial, 10 UNIT SQ TID, (Reported) Entered as Reported by: FARHEEN PASTOR on 10/22/21 1254 Last Action: Reviewed Insulin Regular, Human (Novolin R) 100 Unit/1 Ml Vial, 10 UNIT SQ TID, (Reported) Entered as Reported by: FARHEEN PASTOR on 10/22/21 125 Last Action: Reviewed Levothyroxine Sodium (Levothyroxine Sodium) 88 Mcg Tablet, 88 MCG PO DAILY, (Reported) Entered as Reported by: FARHEEN PASTOR on 10/22/21 102 Last Action: Reviewed Campbell-3/Dha/Epa/Fish Oil (Fish Oil 1,000 mg Softgel) 1 Each Capsule, 1 EACH PO DAILY, (Reported) Entered as Reported by: FARHEEN PASTOR on 10/22/21 102 Last Action: Reviewed Pantoprazole Sodium (Pantoprazole Sodium) 40 Mg Tablet.dr, 40 MG PO DAILY, (Reported) Entered as Reported by: FARHEEN PASTOR on 10/22/21 102 Last Action: Reviewed Prednisone (Prednisone) 5 Mg Tablet, 5 MG PO DAILY, (Reported) Entered as Reported by: FARHEEN PASTOR on 10/22/21 125 Last Action: Reviewed Ropinirole HCl (Ropinirole HCl) 2 Mg Tablet, 4 MG PO HS, (Reported) Entered as Reported by: FARHEEN PASTOR on 10/22/21 102 Last Action: Reviewed Tizanidine HCl (Tizanidine HCl) 2 Mg Tablet, 2 MG PO TID PRN for MUSCLE SPASMS, (Reported) Entered as Reported by: FARHEEN PASTOR on 10/22/21 102 Last Action: Reviewed Torsemide (Torsemide) 20 Mg Tablet, 20 MG PO DAILY, (Reported) Entered as Reported by: FARHEEN PASTOR on 10/22/21 102 Last Action: Reviewed Discontinued Medications Metoprolol Tartrate (Metoprolol Tartrate) 25 Mg Tablet, 25 MG PO BID, (Reported) Discontinued Reason: Duplicate Order Entered as Reported by: FARHEEN PASTOR on 10/22/21 1301 Last Action: Discontinued Potassium Chloride (Potassium Chloride) 10 Meq Capsule.er, 10 MEQ PO DAILY Discontinued Reason: Referral/FU Appt-Addtl Prescribed by: CANDY LE on 07/16/21 1348 Last Action: Discontinued Physical Exam-Cardiology Physical Exam Vital Signs/I&O 10/24/21 10/25/21 10/25/21 10/25/21 23:10 03:56 07:39 08:00 Temp 36.4 36.7 36.4 Pulse 82 86 86 Resp 20 20 20 B/P (MAP) 139/66 (90) 120/77 (91) 170/71 (104) Pulse Ox 91 93 92 95 O2 Delivery Nasal Cannula Nasal Cannula Nasal Cannula Nasal Cannula O2 Flow Rate 3.00 3.00 3.00 3.00 10/25/21 09:00 O2 Delivery Nasal Cannula O2 Flow Rate 3.00 10/25/21 00:00 Intake Total 1110 ml Output Total 480 ml Balance 630 ml Capillary Refill : Less Than 3 Seconds Constitutional: other (Lethargic, easy to wake up; appropriate conversation) HEENT: PERRL, hearing is well preserved, oral hygience is good Neck: No carotid bruit; carotid pulses are 2 + bilaterally Respiratory: No accessory muscle use, No respiratory distress; chest expansion is symmetric, chest is bilaterally symmetric, rhonchi (scattered), other (coarse breathsounds throughout) Cardiovascular: regular rate-rhythm; No JVD; S1 and S2 Gastrointestinal: No tender; soft, round; No guarding Extremities: other (mod bilat LE swelling) Neurologic/Psychiatric: grossly intact (moves all extremities) Skin: other (multiple abrasions and dressings to arms/hands bilat; multiple skin tears, bruises and abrasions to legs bilat) Data Review Labs Laboratory Tests 10/24/21 11:05: Glucometer 251H 10/24/21 12:40: Vancomycin Level Trough 22.4H 10/24/21 18:17: Glucometer 273H 10/24/21 23:34: Glucometer 212H 10/25/21 05:40: White Blood Count 24.9H, Red Blood Count 3.15L, Hemoglobin 8.9L, Hematocrit 28L, Mean Corpuscular Volume 88, Mean Corpuscular Hemoglobin 28, Mean Corpuscular Hemoglobin Concent 32, Red Cell Distribution Width 16.9H, Platelet Count 198, Mean Platelet Volume 11.1, Immature Granulocyte % (Auto) 2, Neutrophils (%) (Auto) 90H, Lymphocytes (%) (Auto) 4L, Monocytes (%) (Auto) 4, Eosinophils (%) (Auto) 0, Basophils (%) (Auto) 0, Neutrophils # (Auto) 22.4H, Lymphocytes # (Auto) 1.0, Monocytes # (Auto) 1.0, Eosinophils # (Auto) 0.0, Basophils # (Auto) 0.1, Immature Granulocyte # (Auto) 0.4H, Sodium Level 133L, Potassium Level 4.2, Chloride Level 97L, Carbon Dioxide Level 25, Anion Gap 11, Blood Urea Nitrogen 28H, Creatinine 1.03, Estimat Glomerular Filtration Rate 53, BUN/Creatinine Ratio 27, Glucose Level 138H, Calcium Level 8.5, Corrected Calcium 9.5, Total Bilirubin 0.4, Aspartate Amino Transf (AST/SGOT) 16, Alanine Aminotransferase (ALT/SGPT) 13, Alkaline Phosphatase 79, Total Protein 6.4, Albumin 2.7L Microbiology 10/21/21 MRSA Screen - Final, Complete MRSA not isolated 10/21/21 Blood Culture - Preliminary, Resulted No growth 10/21/21 Urine Culture - Final, Complete Escherichia coli Radiology NAME: SOUMYA QUIROZ [facility] REC#: [id number] PT STATUS: REG ER : 1950 PHYSICIAN: EDEN SIMMONS DO ADMIT DATE: 10/21/21/ER FS Signed Date of Exam:10/21/21 CT ANNE CHEST/NOANG ABD-PELV W EXAMINATION: CT angiography of the chest, CT of the abdomen and pelvis. TECHNIQUE: Contrast enhanced thin section helical images were obtained through the chest, abdomen and pelvis with intravenous contrast timed for the optimal opacification of the arterial structures of the chest per CTA protocol. Post-processing, reconstructions and interpretation of angiographic images of the vessels was performed. 3D MIP reconstructions were performed and reviewed. All CT scans use one or more of the following dose optimizing techniques: Automated exposure control, MA and/or KvP adjustment based on a patient size and exam type, or iterative reconstruction. HISTORY: SOA, hypoxia. COMPARISON: None available. FINDINGS: Vascular: No filling defects are seen within the visualized pulmonary arteries. Evaluation of the distal pulmonary arteries is limited secondary to respiratory motion and consolidation. There are vascular calcifications of the aorta and coronary vessels without aneurysm. Thyroid: The thyroid is normal. Mediastinum: Heart size is normal without significant pericardial effusion. No suspicious lymphadenopathy. Lungs and airways: There are patchy ground-glass opacities seen throughout both lungs. Trace bilateral pleural effusions with adjacent atelectasis or consolidation. No pneumothorax. The airways are normal. Solid organs: The liver is normal without focal lesion. The gallbladder is surgically absent. There is no biliary ductal dilation. Pancreas is normal. Spleen is normal. Adrenal glands are normal. The kidneys are normal without hydronephrosis. Bowel: The stomach and small bowel are normal without obstruction. There is diffuse wall thickening and inflammatory stranding of the colon. There is more prominent inflammatory stranding seen near the cecum with evidence of presumed air within the venous plexus versus free air. Peritoneum: No free fluid or loculated fluid collection. No suspicious lymphadenopathy. Vasculature: Calcification of the aorta without aneurysm. Musculoskeletal: Degenerative changes of the spine without suspicious osseous lesion or compression fracture. Pelvis: The uterus and adnexa are normal. Urinary bladder is decompressed with a Parker catheter. IMPRESSION: 1. Diffuse wall thickening of the colon with greatest area of inflammatory stranding seen near the cecum. Findings are concerning for an infectious or inflammatory colitis. There are findings suggestive of venous air adjacent to the cecum, less likely free air. 2. Patchy ground-glass opacities throughout both lungs which can be seen with pulmonary edema or atypical infection. Dictated by: Dictated on workstation # [id number] Dict: 10/21/21 1302 Trans: 10/21/21 1317 [id number] Interpreted by: LILIANA ANGELO DO Electronically signed by: LILIANA ANGELO DO 10/21/21 1317 ECG Impression ECG Initial ECG Rhythm: Normal Sinus A/P-Cardiology Assessment/Admission Diagnosis Sepsis - pneumonia - management per medical services - UTI - management per medical services CAD - reports follows with cardiology at [facility] in [place] - reports recent cardiac stents placed in June 2021 at [facility] Acute on chronic exacerbation of COPD Acute on chronic CHF (reports h/o CHF) DM 2 HTN HLD Frequent falls Frequent UTI's Discussion and Recomendations Sepsis with pneumonia and UTI - management per medical/eICU services COVID PUI - awaiting results H/O CAD with reported recent stent placement in June - reports she is on ASA and Plavix - resume Treat CHF with diuretics Montior lab closely - replace electrolytes as indicated Request records from [facility] Further recs will be based on her hospital course BERLIN GUTHRIE Oct 21, 2021 14:56
[2021-10-21 15:26] LABS: ABG PCO2 52 MMHG (35-45)
[2021-10-21 15:27] LABS: ABG PO2 25 MMHG (79-93); ABG TCO2 33.8 MMOL/L (21.0-31.0)
[2021-10-21 15:28] LABS: ABG BASE EXCESS 6.1 MMOL/L (-2.5-2.5); ABG OXYGEN SATURATION 45 % (94-100); ALLENS TEST YES-POS
[2021-10-21 15:29] LABS: INSPIRED O2 4L; PATIENT TEMP 37.6; VENTILATOR NO
[2021-10-21] MEDS ORDERED: FUROSEMIDE 40 MG/4 ML INJ (LASIX) IVP ONE (15:30)
[2021-10-21] MEDS: NOREPINEPHRINE 8 MG/250 ML 250 ML IV SCH (15:56)
[2021-10-21] MEDS ORDERED: HYDROcodone/APAP 7.5 MG/325 MG (LORTAB, LORCET PLUS) TABLET PO PRN (16:00)
--- NOTE | 2021-10-21 16:09 | Tele-ICU Consult ---
History of Present Illness History of Present Illness Date Seen by Provider: Oct 21, 2021 Time Seen by Provider: 16:04 Date of Admission 10/21/21 History of Present Illness She is a 71-year-old female with past medical history of hypertension, hyperlipidemia myocardial infarction none recently underwent coronary artery stent placement at the [facility] in [place] in June 2021 apparently living with her at home. For the last 2 days she was not feeling well and having some abdominal pain and a frequently falling. Today she has a altered mental status and she was brought to the emergency room by the EMS who found her to be hypotensive and hypoxic. She required 4 L of oxygen. Chest x-ray showed bilateral infiltrates. She is not able to give a good detailed history. Dr. Bassam Shirley from [facility] emergency room called me about this patient and he is going to transfer the patient to [facility]. She arrived in the intensive care unit where I have evaluated with the video visit and discussing with the APPELLATE LAW CLERK. She had a Covid19 PCR test which is negative. She has a bilateral extensive groundglass opacities usually seen in Covid pneumonia but her Covid test is negative. This could be a pulmonary edema given her coronary artery disease and congestive heart failure. Reportedly her stated that patient not taking her diuretics normally. Her urine analysis is also suggestive of urinary tract infection. All things putting together it is suggestive that she has urinary tract infection with a septic shock with possibly acute and chronic congestive heart failure or septic cardiomyopathy. She has a multiple antibiotic allergies however she has been started on vancomycin and meropenem both she is so far tolerated well without any reaction. Allergies and Home Medications Allergies Coded Allergies: Penicillins (Unverified Adverse Reaction, Unknown, 01/16/21) cephalexin (Unverified Adverse Reaction, Unknown, 01/16/21) ciprofloxacin (Unverified Adverse Reaction, Unknown, 01/16/21) erythromycin base (Unverified Adverse Reaction, Unknown, 01/16/21) Home Medications Potassium Chloride 10 Meq Capsule.er, 10 MEQ PO DAILY Prescribed by: CANDY LE on 07/16/21 7152 Past Medical/Social/Family Hx Patient Social History Tobacco Use?: Yes Tobacco type used: Cigarettes Smoking Status: Current Everyday Smoker Use of E-Cig and/or Vaping dev: No Substance use?: No Alcohol Use?: No Pt stated abuse/neglect: No Immunizations Up To Date First/Initial COVID19 Vaccinat: 01/2021 Second COVID19 Vaccination Lon: 01/2021 Tetanus Booster (TDap): Less Than 5 Years Current Status Advance Directives: No Primary Language: Kyrgyz Preferred Spoken Language: Kyrgyz Review of Systems Constitutional: see HPI Other ROS per attending physician Sepsis Event Evaluation Sepsis Stage: Septic Shock Height, Weight, BMI Height: '" Weight: lbs. oz. kg; 34.00 BMI Method: Exam Exam Patient acknowledged, consented, and participated in this virtual visit which was conducted using real time audio/video Vital Signs Date Time Temp Pulse Resp B/P (MAP) Pulse Ox O2 Delivery O2 Flow Rate FiO2 10/21/21 15:48 36.7 84 95 10/21/21 15:40 95 High Flow N/C 5.00 10/21/21 13:39 36.7 84 22 145/52 98 Nasal Cannula 3.00 10/21/21 12:58 84 95/32 10/21/21 09:43 36.7 105 22 81/47 (58) 98 Nasal Cannula 6.00 10/21/21 09:43 Nasal Cannula 2.00 Height & Weight Height: '" Weight: lbs. oz. kg; 34.00 BMI Method: General Appearance: Chronically ill, Moderate Distress, Obese HEENT: Pharynx Normal Neck: Supple Respiratory: Decreased Breath Sounds, Expiration, Inspiration, Respiratory Distress, Wheezing Cardiovascular: Regular Rate, Rhythm Capillary Refill: Less Than 3 Seconds Extremity: Slow Capillary Refill Neurologic/Psychiatric: Alert, Disoriented Skin: Cool Other comments PE per attending physician Results Lab Laboratory Tests 10/21/21 09:50 Meds reviewed Radiology cxr and ct angiogram of chest reviewed. ct abd. results reviewed Assessment/Plan Assessment/Plan 1. Urinary tract infection 2. Suspect gram-negative sepsis with septic shock 3. Altered mental status most likely due to sepsis 4. Suspected acute and chronic congestive heart failure versus septic cardiomyopathy causing groundglass opacities on the chest x-ray and the CT scan. 5. History of coronary artery disease status post PCI 6. History of hypertension currently hypotensive 7. Hyperlipidemia history. 8. Bowel wall thickening could be inflammatory in origin however in ischemic colitis also cannot be ruled out. Recommendations 1. Suggest to decrease IV fluids to 30 cc/h 2. IV Lasix per cardiology service 4. Continue IV vancomycin and meropenem for the time being and monitor blood cultures 4. We will get an echocardiogram to see her ejection fraction. 5. DVT prophylaxis with subcu heparin. 6. Cardiology consultation and surgical consultation requested. 7. Oxygenate patient with nasal cannula 8. Levophed to keep map over 65. 9. Overall prognosis is guarded. 10. Video visit made and discussed with the patient's APPELLATE LAW CLERK Michael Critical Care: Critically Ill Patient Time spent with patient (mins): 45 [place] HAUSER MD Oct 21, 2021 16:09
--- NOTE | 2021-10-21 16:17 | History & Physical-Hospitalist ---
CHRIS ARGUETA 10/21/21 1617: History of Present Illness HPI/Chief Complaint Patient arrived to [facility] via EMS from [facility]. Patient is unsure why she we nt to the [place] [facility] today. She thinks her may have called EMS because she hasn't been feeling well. She does recall that the ER doctor at [facility] told her she has "infections and a UTI". She was unaware she had either. Patient says she has been feeling unwell for a few days, but cannot recall exactly how long. She has a sharp stabbing pain over RUQ and RLQ that is localized. Says she hasn't tried anything to make it better but having a bowel movement does relieve the pain. Doesn't remember her last bowel movement, but it has been more than two days. Patient does have multiple abrasions and bruises all over her body, does not recall how she got them. Denies N/V, fever, chest pa in, SOB, diarrhea, constipation, blood in stool, dysuria, vision changes, HERNANDEZ. Unable to obtain full HPI, PMhx, PShx due to patient being poor historian. Source: patient Date Seen 10/21/21 Time Seen by a Provider: 16:07 Attending Physician Katya Jarquin Pankaj K MD Referring Physician Date of Admission Oct 21, 2021 at 14:22 Home Medications & Allergies Home Medications Reviewed patient Home Medication Reconciliation performed by pharmacy medication reconciliations computer systems technician and/or nursing. Patients Allergies have been reviewed. Allergies Allergies Coded Allergies Penicillins (Unverified Adverse Reaction, Unknown, 01/16/21) cephalexin (Unverified Adverse Reaction, Unknown, 01/16/21) ciprofloxacin (Unverified Adverse Reaction, Unknown, 01/16/21) erythromycin base (Unverified Adverse Reaction, Unknown, 01/16/21) Past Byaibpm-Gqmrce-Cigrls Hx Patient Social History Tobacco Use?: Yes Tobacco type used: Cigarettes Smoking Status: Current Everyday Smoker Use of E-Cig and/or Vaping dev: No Substance use?: No Alcohol Use?: No Pt feels they are or have been: No Immunizations Up To Date First/Initial COVID19 Vaccinat: 01/2021 Second COVID19 Vaccination Lon: 01/2021 Tetanus Booster (TDap): Less Than 5 Years Seasonal Allergies Seasonal Allergies: No Current Status Advance Directives: No Primary Language: Irish Preferred Spoken Language: Irish Past Medical History Surgeries: Bladder Surgery, Gallbladder, Joint Replacement, Orthopedic COPD Heart Attack (06/20/2021), High Cholesterol, Hypertension, Peripheral Vascular (Stent placement in legs) Ulcer Arthritis Hypothyroidsim, Diabetes, Non-Insulin dep Anxiety Blood Disorders: No Review of Systems Constitutional: No dizziness, No fever EENTM: No hearing loss, No double vision Respiratory: No cough, No phlegm, No short of breath Cardiovascular: No chest pain, No palpitations Gastrointestinal: RUQ, RLQ, abdominal pain, constipation; No diarrhea, No hematemesis, No melena, No nausea, No vomiting Genitourinary: No decreased output, No dysuria Psychiatric/Neurological: Denies Headache Physical Exam Physical Exam Vital Signs Vital Signs - First Documented 10/21/21 09:43 Temp 36.7 Pulse 105 Resp 22 B/P (MAP) 81/47 (58) Pulse Ox 98 O2 Delivery Nasal Cannula O2 Flow Rate 2.00 Capillary Refill : Less Than 3 Seconds Height, Weight, BMI Height: '" Weight: lbs. oz. kg; 34.00 BMI Method: General Appearance: No Apparent Distress, WD/WN, Chronically ill HEENT: Pharynx Normal, Moist Mucous Membranes Neck: Supple Respiratory: Chest Non Tender, Lungs Clear, Normal Breath Sounds (slightly decreased), No Accessory Muscle Use, No Respiratory Distress Cardiovascular: Regular Rate, Rhythm, No Murmur, Normal Peripheral Pulses Gastrointestinal: No Pulsatile Mass, Non Tender, Soft Rectal: Deferred Back: Normal Inspection Extremity: Normal Capillary Refill, Non Tender, No Calf Tenderness, No Pedal Edema Neurologic/Psychiatric: Alert; No Oriented x3 (Oriented x2); Normal Mood/Affect Skin: Ecchymosis (grossly distributed over all four extremities ), Erythema (Left forearm) Results Results/Procedures Labs Laboratory Tests 10/21/21 09:50 Patient resulted labs reviewed. Assessment/Plan Admission Diagnosis Sepsis Admission Status: Inpatient Order (span 2 midnights) Reason for Inpatient Admission: Sepsis Assessment and Plan Sepsis - Abx, IV fluids, monitor labs UTI - Abx, IV fluids Hyponatremia - fluid restrictions, monitor labs Hypokalemia - potassium replacement Lactic acidosis - Continue to monitor labs Hypotension - Pressors, continue to monitor, current BP 130/110 RUEL - IV Fluids, Monitor urine output, monitor labs Possible colitis - Abx, continue to monitor, possible general surgery consult History of COPD History of [place] - consult cardiology KATYA JARQUIN 10/22/21 0533: History of Present Illness HPI/Chief Complaint CC: Respiratory Failure HPI: This is an elderly female clinic pt of with a hx of COPD who continues to smoke who presented to the [facility] ER with altered mental status, was found to have B/L pneumonia with respiratory insufficiency requiring central line and severe sepsis IV fluids with pressor therapy. She was given Meropenem and Vancomycin due to multiple allergies and EICU was given report by [facility] ER. At this current time pt remains stable but high risk for intubation. At time of rounds patient was preparing for emergent surgery due to ischemic bowel suspected and Dr. FERNANDEZ will perform the surgery Source: patient Exam Limitations: clinical condition Past [place]-Jnnhqx-Bfsbsq Hx Patient Social History Marrital Status: single Employed/Student: retired Smoking Status: Current Everyday Smoker Past Medical History COPD Heart Attack (06/20/2021), High Cholesterol, Hypertension, Peripheral Vascular Bladder Infection Gastroesophageal Reflux Arthritis Review of Systems Constitutional: see HPI, malaise, weakness Gastrointestinal: abdominal pain Physical Exam Physical Exam General Appearance: Anxious, Chronically ill, Moderate Distress Respiratory: No Accessory Muscle Use, No Respiratory Distress, Decreased Breath Sounds Cardiovascular: Regular Rate, Rhythm Neurologic/Psychiatric: Alert, Oriented x3 (Oriented x2) Assessment/Plan Admission Diagnosis Assessment: Respiratory insufficiency Exacerbation COPD Pneumonia Acute ischemic bowel taken to emergent surgery by Dr. FERNANDEZ Current smoker CAD Hypertension Plan: Emergent surgery since benefits outweigh medical risk Guarded prognosis Admission Status: Inpatient Order (span 2 midnights) Reason for Inpatient Admission: Sepsis Diagnosis/Problems Diagnosis/Problems (1) Acute encephalopathy Status: Acute (2) Pneumonia Status: Acute Qualifiers: Pneumonia type: due to unspecified organism Laterality: bilateral Lung location: unspecified part of lung Qualified Codes: J18.9 - Pneumonia, unspecified organism (3) Lactic acid acidosis Status: Acute (4) UTI (urinary tract infection) Status: Acute Qualifiers: Urinary tract infection type: site unspecified Hematuria presence: without hematuria Qualified Codes: N39.0 - Urinary tract infection, site not specified (5) Respiratory failure Status: Acute Qualifiers: Chronicity: acute Respiratory failure complication: hypoxia Qualified Codes: J96.01 - Acute respiratory failure with hypoxia (6) Hyponatremia Status: Acute Supervisory-Addendum Brief Verification & Attestation Participated in pt care: history, MDM, physical Personally performed: exam, history, MDM, supervision of care Care discussed with: Medical Student Procedures: n/a Results interpretation: Verified all documentation Verification and Attestation of Medical Student E/M Service A medical student performed and documented this service in my presence. I reviewed and verified all information documented by the medical student and made modifications to such information, when appropriate. I personally performed the physical exam and medical decision making. Katya Jarquin, Oct 22, 2021,05:30 CHRIS ARGUETA Oct 21, 2021 16:17 KATYA JARQUIN DO Oct 22, 2021 05:33
[2021-10-21] MEDS: LACTATED RINGERS 1,000 ML IV SCH (16:31)
--- NOTE | 2021-10-21 16:46 | CONSULTATION REPORT ---
DATE OF SERVICE: 10/21/2021 ATTENDING PRIMARY CARE PHYSICIAN: Dr. Rendon. ADMITTING PHYSICIAN: Dr. Hernandez. HISTORY OF PRESENT ILLNESS: The patient is a 71-year-old female, who presented to [facility] with hypoxia, altered mental status, and generally not feeling well with weakness. She is awake and alert; however, her history is inconsistent. She states that she is unsure why she is currently in the hospital. She is currently on oxygen nasal cannula at 3 liters and saturating in the mid 90s. She does have some abdominal pain in the right lower abdominal quadrant; however, no peritoneal signs. No hernias. She does have an extensive past medical history including coronary artery disease, peripheral vascular disease, and congestive heart failure. She also did have a recent myocardial infarction and does continue to smoke. A CT scan was performed, which did show inflammation of the colon consistent with colitis; however, it is unsure if she has been having diarrhea. PAST MEDICAL HISTORY: Hypercholesterolemia, hypertension, peripheral vascular disease, coronary artery disease, degenerative joint disease, diabetes, and hypothyroid. PAST SURGICAL HISTORY: Bilateral lower extremity angioplasty and stent placement, laparoscopic cholecystectomy, left total knee replacement, bladder suspension, pituitary tumor excision, and bilateral knee arthroscopy. ALLERGIES: PENICILLIN, CEPHALEXIN, CIPROFLOXACIN MEDICATIONS: Potassium 10 mEq daily, aspirin 81 mg daily, and Plavix 75 mg daily. SOCIAL HISTORY: Positive smoke 50 pack years. Negative alcohol. FAMILY HISTORY: Noncontributory. REVIEW OF SYSTEMS: This is a well-nourished female, currently in no acute distress. She is awake and alert and does answer majority of questions appropriately; however, is confused and is unsure and easily forgets why she is in the hospital. She is currently not experiencing any shortness of breath or difficulty breathing. No cough or sputum production. No nausea or vomiting. No known diarrhea as well as no red blood per rectum and no dark tarry stools. No fever, chills, and no recent inadvertent weight loss. All other review of systems negative. PHYSICAL EXAMINATION: VITAL SIGNS: Temperature 36.7, blood pressure 145/52, pulse 84, respirations 22, and pulse ox 95% on 5 liters nasal cannula. CHEST: Distant breath sounds and scattered wheezes bilaterally. HEART: Regular and no murmurs. EXTREMITIES: No lower extremity edema and negative Homans sign. HEENT: No scleral icterus. NECK: No cervical lymphadenopathy. ABDOMEN: Soft and nondistended. There is pain in the right lower abdominal quadrant as well as in the suprapubic region. There are no hernias and no peritoneal signs. LABORATORY DATA: WBC is 23.5, hemoglobin 11.2, hematocrit 34, platelets 242, BUN 13, and creatinine 1.58. ASSESSMENT AND PLAN: A 71-year-old female with a history of COPD, congestive heart failure, coronary artery disease as well as peripheral vascular disease with weakness, hypoxemia, shortness of breath as well as colitis. We will send her stools for possible Clostridium difficile infection. For the time being, we will continue with IV antibiotics with vancomycin and meropenem. We will also proceed with continued clinical examination for any symptomatic changes. Job ID: [id number] DocumentID: [id number] Dictated Date: 10/21/2021 15:58:34 Assistant Hall Director Date: 10/21/2021 16:45:50 Dictated By: MONICA FERNANDEZ MD MTDD
[2021-10-21] MEDS: methylPREDNISolone 40 MG/ML (Solu-MEDROL) VIAL IV SCH ×2 (16:48→23:49)
[2021-10-21] MEDS: MEROPENEM 500 MG in NS (IVPB) 100 ML IV SCH ×2 (16:49→23:48)
[2021-10-21] MEDS: LACTOBACILLUS Acidoph/Bulgar 1 GM (LACTINEX) PACKET PO SCH ×2 (16:49→23:36)
[2021-10-21] MEDS: ENOXAPARIN 40 MG/0.4 ML (LOVENOX) SYR SC SCH (16:50)
--- NOTE | 2021-10-21 17:13 | Consultation-Cardiology ---
HPI-Cardiology Cardiology Consultation: Date of Consultation 10/21/21 Time Seen by a Provider: 16:40 Date of Admission Attending Physician Katya Hernandez DO Admitting Physician Jayjay Rendon MD Consulting Physician MIRTA AL MD, MA, FACP, FACC, FSCAI, CCDS Physician requesting consult: Dr Hernandez HPI: Chief Complaint: SOB Ms. Quiroz is a 71 yr old female admitted to ICU 2 from the ED with sepsis. Per nurse and patient. She has had progressive dyspnea over the course of the last few days. Family called EMS d/t AMS this morning. EMS found her to be hypoxic (O2 sats in the 70's) and hypotensive. She reports she was having diarrhea this morning. She continues to smoke cigs approx 1 ppd. She denies any c/o CP or palpitations. She has bilat LE swelling. She has multiple skin tears and abrasion to hands/arms/legs bilat d/t frequent falls at home. She reports frequent cough. No report of syncope or near syncope. She reports gen weakness. Nursing reports she was having abdominal pain, but she is currently pain free. Review of Systems-Cardiology Review of Systems Constitutional: No chills, No fever; lightheadedness, malaise Eyes: No vision change Ears/Nose/Throat: No epistaxis, No recent hearing loss Respiratory: As described under HPI Cardiovascular: As described under HPI Gastrointestinal: As described under HPI Genitourinary: no symptoms reported; No hematuria Musculoskeletal: joint pain Skin: As described under HPI Psychiatric/Neurological: No seizure, No focal weakness, No syncope Hematologic: No bleeding abnormalities All Other Systems Reviewed Negative Unless Noted: Yes OVS-Obpwed-Fwrunu Hx Patient Social History Smoking Status: Current Everyday Smoker 2nd Hand Smoke Exposure: Yes Have you traveled recently?: No Alcohol Use?: No Pt feels they are or have been: No Tobacco type used: Cigarettes Immunizations Up To Date Tetanus Booster (TDap): Unknown Past Medical History PMH As described under Assessment. Family Medical History Family Medical History: She reports her mother had CHF. Allergies and Home Medications Allergies Coded Allergies: Penicillins (Unverified Adverse Reaction, Unknown, 01/16/21) cephalexin (Unverified Adverse Reaction, Unknown, 01/16/21) ciprofloxacin (Unverified Adverse Reaction, Unknown, 01/16/21) erythromycin base (Unverified Adverse Reaction, Unknown, 01/16/21) Patient Home Medication List Home Medication List Reviewed: Yes Potassium Chloride (Potassium Chloride) 10 Meq Capsule.er, 10 MEQ PO DAILY Prescribed by: CANDY LE on 07/16/21 1348 Physical Exam-Cardiology Physical Exam Vital Signs/I&O 10/21/21 10/21/21 10/21/21 10/21/21 09:43 09:43 12:58 13:39 Temp 36.7 36.7 Pulse 105 84 84 Resp 22 22 B/P (MAP) 81/47 (58) 95/32 145/52 Pulse Ox 98 98 O2 Delivery Nasal Cannula Nasal Cannula Nasal Cannula O2 Flow Rate 2.00 6.00 3.00 10/21/21 10/21/21 15:40 15:48 Temp 36.7 Pulse 84 Pulse Ox 95 95 O2 Delivery High Flow N/C O2 Flow Rate 5.00 Capillary Refill : Less Than 3 Seconds Constitutional: other (Lethargic, easy to wake up; appropriate conversation) HEENT: PERRL, hearing is well preserved, oral hygience is good Neck: No carotid bruit; carotid pulses are 2 + bilaterally Respiratory: No accessory muscle use, No respiratory distress; chest expansion is symmetric, chest is bilaterally symmetric, rhonchi (scattered), other (coarse breathsounds throughout) Cardiovascular: regular rate-rhythm; No JVD; S1 and S2 Gastrointestinal: No tender; soft, round; No guarding Extremities: other (mod bilat LE swelling) Neurologic/Psychiatric: grossly intact (moves all extremities) Skin: other (multiple abrasions and dressings to arms/hands bilat; multiple skin tears, bruises and abrasions to legs bilat) Data Review Labs Laboratory Tests 10/21/21 09:50: White Blood Count 23.5H, Red Blood Count 4.03, Hemoglobin 11.2L, Hematocrit 34L, Mean Corpuscular Volume 84, Mean Corpuscular Hemoglobin 28, Mean Corpuscular Hemoglobin Concent 33, Red Cell Distribution Width 16.4H, Platelet Count 242, Mean Platelet Volume 9.9, Immature Granulocyte % (Auto) 1, Neutrophils (%) (Auto) 78H, Lymphocytes (%) (Auto) 14, Monocytes (%) (Auto) 7, Eosinophils (%) (Auto) 0, Basophils (%) (Auto) 0, Neutrophils # (Auto) 18.2H, Lymphocytes # (Auto) 3.3, Monocytes # (Auto) 1.6H, Eosinophils # (Auto) 0.0, Basophils # (Auto) 0.1, Immature Granulocyte # (Auto) 0.2H, Neutrophils % (Manual) 83, Lymphocytes % (Manual) 7, Monocytes % (Manual) 4, Basophils % (Manual) 2, Myelocytes % 1, Band Neutrophils 2, Nucleated Red Blood Cells 1, Reactive Lympho cytes 1, Platelet Estimate NORM, Polychromasia SLIGHT, Anisocytosis SLIGHT, Blood Morphology Comment NORM, Prothrombin Time 15.0H, INR Comment 1.1, Activated Partial Thromboplast Time 34, D-Dimer 2.19H, Sodium Level 122*L, Potassium Level 3.4L, Chloride Level 83L, Carbon Dioxide Level 27, Anion Gap 12, Blood Urea Nitrogen 13, Creatinine 1.58H, Estimat Glomerular Filtration Rate 32, BUN/Creatinine Ratio 8, Glucose Level 155H, Lactic Acid Level 2.22*H, Calcium Level 8.3L, Corrected Calcium 9.5, Total Bilirubin 0.8, Aspartate Amino Transf (AST/SGOT) 13, Alanine Aminotransferase (ALT/SGPT) 6, Alkaline Phosphatase 122, Troponin I < 0.30, Pro-B-Type Natriuretic Peptide 05511.0H, Total Protein 7.0, Albumin 2.5L, Lipase 7L 10/21/21 10:06: Urine Color YELLOW, Urine Clarity TURBID, Urine pH 5.5, Urine Specific Riddle 1.020, Urine Protein 1+H, Urine Glucose (UA) 3+H, Urine Ketones TRACEH, Urine Nitrite NEGATIVE, Urine Bilirubin NEGATIVE, Urine Urobilinogen 0.2, Urine Leukocyte Esterase 2+H, Urine RBC (Auto) 2+H, Urine RBC 2-5H, Urine WBC TNTCH, Urine Squamous Epithelial Cells RARE, Urine Crystals NONE, Urine Bacteria LARGEH , Urine Casts NONE, Urine Mucus LARGEH, Urine Culture Indicated YES 10/21/21 10:33: Blood Gas Puncture Site LT. RADIAL, Blood Gas Patient Temperature 37.6, Arterial Blood pH 7.40, Arterial Blood Partial Pressure CO2 52H, Arterial Blood Partial Pressure O2 25*L, Arterial Blood HCO3 32H, Arterial Blood Total CO2 33.8H, Arterial Blood Oxygen Saturation 45L, Arterial Blood Base Excess 6.1H, Gonzalo Test YES-POS, Blood Gas Ventilator Setting NO, Blood Gas Inspired Oxygen 4L 10/21/21 10:40: Influenza Type A Antigen NEGATIVE, Influenza Type B Antigen NEGATIVE 10/21/21 12:50: Lactic Acid Level 2.82*H 10/21/21 14:30: SARS-CoV-2 RNA (RT-PCR) Not Detected 10/21/21 14:50: Lactic Acid Level 2.34*H 10/21/21 16:55: A/P-Cardiology Assessment/Admission Diagnosis Sepsis due to pneumonia and UTI - Dr Hernandez managing CAD - reports follows with cardiology at [facility] in [place] - reports recent cardiac stents placed in June 2021 at [facility] Acute on chronic exacerbation of COPD Acute on chronic CHF (reports h/o CHF) DM 2 HTN HLD Frequent falls Frequent UTI's Discussion and Recomendations H/O CAD with reported recent stent placement in June - reports she is on ASA and Plavix - resume Treat CHF with diuretics Monitor lab closely - replace electrolytes as indicated Request records from [facility]'s Sepsis, DM II, COPD is to be managed by MIRTA Watts MD FACP FACC CCDS Oct 21, 2021 17:13
--- NOTE | 2021-10-21 18:31 | History & Physical-Hospitalist ---
History of Present Illness HPI/Chief Complaint Patient arrived to [facility] via EMS from [place] [facility]. Patient is unsure why she went to the [place] [facility] today. She thinks her may have called EMS because she hasn't been feeling well. She does recall that the ER doctor at [place] told her she has "infections and a UTI". She was unaware she had either. Patient says she has been feeling unwell for a few days, but cannot recall exactly how long. She has a sharp stabbing pain over RUQ and RLQ that is localized. Says she hasn't tried anything to make it better but having a bowel movement does relieve the pain. Doesn't remember her last bowel movement, but it has been more than two days. Patient does have multiple abrasions and bruises all over her body, does not recall how she got them. Denies N/V, fever, chest pain, SOB, diarrhea, constipation, blood in stool, dysuria, vision changes, HERNANDEZ. Unable to obtain full HPI, PMhx, PShx due to patient being poor historian. Date Seen 10/21/21 Time Seen by a Provider: 18:15 Attending Physician Katya Hernandez DO PCP Jayjay Rendon MD Referring Physician Date of Admission Oct 21, 2021 at 14:22 Home Medications & Allergies Home Medications Reviewed patient Home Medication Reconciliation performed by pharmacy medication reconciliations cath laboratory technician and/or nursing. Patients Allergies have been reviewed. Allergies Allergies Coded Allergies Penicillins (Unverified Adverse Reaction, Unknown, 01/16/21) cephalexin (Unverified Adverse Reaction, Unknown, 01/16/21) ciprofloxacin (Unverified Adverse Reaction, Unknown, 01/16/21) erythromycin base (Unverified Adverse Reaction, Unknown, 01/16/21) Past Ghenqfg-Friuaf-Kvksdh Hx Patient Social History Tobacco Use?: Yes Tobacco type used: Cigarettes Smoking Status: Current Everyday Smoker Use of E-Cig and/or Vaping dev: No Substance use?: No Alcohol Use?: No Pt feels they are or have been: No Immunizations Up To Date Date of Influenza Vaccine: Sep 18, 2021 First/Initial COVID19 Vaccinat: UTD Second COVID19 Vaccination Lon: UTD Tetanus Booster (TDap): Unknown Seasonal Allergies Seasonal Allergies: No Current Status Advance Directives: No Advance Directive Location: Unable to obtain copy Communicates: Does Not Communicate Primary Language: [place] Preferred Spoken Language: [place] Is interpretation needed?: No Implanted or Applied Medical D: Stents Past Medical History Surgeries: Bladder Surgery, Gallbladder, Joint Replacement, Orthopedic COPD Heart Attack (06/20/2021), High Cholesterol, Hypertension, Peripheral Vascular (Stent placement in legs) Ulcer Arthritis Hypothyroidsim, Diabetes, Non-Insulin dep Anxiety Blood Disorders: No Physical Exam Physical Exam Vital Signs Vital Signs - First Documented 10/21/21 09:43 Temp 36.7 Pulse 105 Resp 22 B/P (MAP) 81/47 (58) Pulse Ox 98 O2 Delivery Nasal Cannula O2 Flow Rate 2.00 Capillary Refill : Less Than 3 Seconds Height, Weight, BMI Height: '" Weight: lbs. oz. kg; 37.33 BMI Method: Results Results/Procedures Labs Laboratory Tests 10/21/21 09:50 Patient resulted labs reviewed. Assessment/Plan Admission Diagnosis Sepsis KATYA HERNANDEZ DO Oct 21, 2021 18:31
[2021-10-21] MEDS: RT-ALBUTEROL/IPRATROPIUM 3 ML (DUONEB) VIAL INH SCH (18:34)
--- NOTE | 2021-10-21 19:02 | Progress Note-Pre Operative ---
Pre-Operative Progress Note H&P Reviewed The H&P was reviewed, patient examined and no changes noted. Date Seen by Provider: Oct 21, 2021 Time Seen by Provider: 19:00 Date H&P Reviewed: Oct 21, 2021 Time H&P Reviewed: 19:00 Pre-Operative Diagnosis: ischemic bowel MONICA FERNANDEZ MD Oct 21, 2021 19:02
[2021-10-21] MEDS ORDERED: fentaNYL INJ 100 MCG/2 ML AMP ONE (19:45)
[2021-10-21] MEDS ORDERED: MIDAZOLAM 2 MG/2 ML (VERSED) VIAL ONE (20:01)
[2021-10-21] MEDS ORDERED: VANCOMYCIN 1000 MG/VIAL ONE (20:03)
[2021-10-21] MEDS ORDERED: NS (IVPB) 100 ML ONE (20:11)
[2021-10-21] MEDS ORDERED: ONDANSETRON 4 MG/2 ML (SDV) Z0FRAN ONE (21:05)
[2021-10-21] MEDS ORDERED: ETOMIDATE IV SOLN 20 MG/10 ML VIAL ONE (21:05)
[2021-10-21] MEDS ORDERED: SUCCINYLCHOLINE INJ 100 MG/5 ML SYR/VIAL ONE (21:05)
[2021-10-21] MEDS ORDERED: ROCURONIUM 50 MG/5 ML (ZEMURON) VIAL IV ONE (21:05)
[2021-10-21] MEDS ORDERED: SEVOFLURANE (ULTANE) 15 ML INHAL SOLN ONE (21:22)
--- NOTE | 2021-10-21 21:30 | Progress Note-Post Operative ---
Post-Operative Progess Note Surgeon (s)/Gum Worker (s) Surgeon MONICA FERNANDEZ MD Gum Worker: gage arizmendi [employer] Pre-Operative Diagnosis ischemic bowel Post-Operative Diagnosis ischemic terminal ileum and right colon. no perforation. Procedure & Operative Findings Date of Procedure 10/21/21 Procedure Performed/Findings exploratory laparotomy, right hemicolectomy, ileal resection(100cm) with ileocolonic anastamosis. Anesthesia Type get Estimated Blood Loss Estimated blood loss (mL): minimal Specimens/Packing Specimens Removed right colon, approximately 100cm distal small bowel MONICA FERNANDEZ MD Oct 21, 2021 21:30
[2021-10-21] MEDS ORDERED: PROMETHAZINE INJ 25 MG/ML (PHENERGAN) AMP IVP PRN (21:45)
[2021-10-21] MEDS ORDERED: PROPOFOL DRIP (ICU) 100 ML IV ONE (23:39)
[2021-10-21 23:59] LABS: POTASSIUM 4.1 MMOL/L (3.6-5.0)
[2021-10-22] VITALS (14 sets, daily range): BP systolic 88–140; BP diastolic 45–72
[2021-10-22] LABS: CALCIUM 7.9 MG/DL (8.5-10.1)
[2021-10-22 00:05] LABS: CREATININE SERUM 1.63 MG/DL (0.60-1.30)
[2021-10-22 00:07] LABS: MAGNESIUM 1.4 MG/DL (1.6-2.4)
[2021-10-22] MEDS ORDERED: inSUlin ASPART (NovoLOG) 1 UNIT/0.01 ML (CHARGE PER UNIT) ONE (00:51)
[2021-10-22] MEDS ORDERED: MAGNESIUM 1 GM/100 ML IVPB 400 ML IV ONE (00:51)
[2021-10-22] MEDS: MAGNESIUM 1 GM/100 ML IVPB 100 ML IV SCH ×3 (00:53→03:47)
[2021-10-22] MEDS: inSUlin ASPART (NovoLOG) 1 UNIT/0.01 ML (CHARGE PER UNIT) SC SCH ×4 (00:54→18:29)
[2021-10-22] MEDS: fentaNYL INJ 100 MCG/2 ML AMP IVP PRN ×4 (02:10→22:08)
[2021-10-22] MEDS: RT-ALBUTEROL/IPRATROPIUM 3 ML (DUONEB) VIAL INH SCH ×6 (02:14→21:56)
[2021-10-22 05:01] LABS: BASOPHILS # (AUTO) 0.1 10^3/uL (0.0-0.1); BASOPHILS % (AUTO) 0 % (0-10); HEMOGLOBIN 9.5 g/dL (11.5-16.0)
[2021-10-22 05:02] LABS: ABG BASE EXCESS 0.9 MMOL/L (-2.5-2.5); ABG OXYGEN SATURATION 99 % (94-100); ABG PCO2 39 MMHG (35-45); ABG PH 7.42 (7.37-7.43); ABG PO2 168 MMHG (79-93); EOSINOPHILS % (AUTO) 0 % (0-10); HEMATOCRIT 29 % (35-52); LYMPHOCYTES # (AUTO) 0.7 10^3/uL (1.0-4.0); LYMPHOCYTES % (AUTO) 3 % (12-44); MEAN CORPUSCULAR HEMOGLOBIN 29 pg (25-34); MEAN CORPUSCULAR HGB CONC 33 g/dL (32-36); MEAN CORPUSCULAR VOLUME 87 fL (80-99); MEAN PLATELET VOLUME 10.2 fL (9.0-12.2); MONOCYTES # (AUTO) 0.9 10^3/uL (0.0-1.0); MONOCYTES % (AUTO) 3 % (0-12); NEUTROPHILS # (AUTO) 24.2 10^3/uL (1.8-7.8); NEUTROPHILS % (AUTO) 93 % (42-75); PLATELET COUNT 188 10^3/uL (130-400); WHITE BLOOD COUNT 25.9 10^3/uL (4.3-11.0)
[2021-10-22 05:03] LABS: ALLENS TEST YES-POS; INSPIRED O2 50%; PATIENT TEMP 36.8; VENTILATOR YES
[2021-10-22 05:19] LABS: POTASSIUM 3.8 MMOL/L (3.6-5.0)
[2021-10-22 05:21] LABS: CALCIUM 8.1 MG/DL (8.5-10.1)
[2021-10-22 05:25] LABS: CREATININE SERUM 1.61 MG/DL (0.60-1.30); PHOSPHORUS 4.1 MG/DL (2.3-4.7)
[2021-10-22 05:28] LABS: MAGNESIUM 2.7 MG/DL (1.6-2.4)
[2021-10-22] MEDS: MEROPENEM 500 MG in NS (IVPB) 100 ML IV SCH ×3 (06:01→18:29)
[2021-10-22] MEDS: methylPREDNISolone 40 MG/ML (Solu-MEDROL) VIAL IV SCH ×4 (06:02→22:07)
[2021-10-22] MEDS: PROPOFOL DRIP (ICU) 100 ML IV SCH ×5 (06:02→22:09)
[2021-10-22] MEDS: NOREPINEPHRINE 8 MG/250 ML 250 ML IV SCH (06:03)
--- NOTE | 2021-10-22 07:13 | OPERATIVE REPORT ---
DATE OF SERVICE: 10/21/2021 ATTENDING PRIMARY CARE PHYSICIAN: Dr. Rendon. ADMITTING PHYSICIAN: Dr. Hernandez. PREOPERATIVE DIAGNOSIS: Ischemic bowel. POSTOPERATIVE DIAGNOSES: Ischemic right colon to the proximal transverse colon, ischemic distal ileum encompassing approximately 100 cm. No perforation. PROCEDURES: Exploratory laparotomy, segmental ileal resection approximately 100 cm in length, right hemicolectomy with ileocolonic anastomosis. SURGEON: oRmelia Perez MD. GENERAL CAR YARD SUPERVISOR: Ralf Huerta APRN. ANESTHESIA: General endotracheal. ESTIMATED BLOOD LOSS: Minimal. FINDINGS: Ischemic right colon to the proximal transverse colon, ischemic distal ileum encompassing approximately 100 cm. No perforation. DISPOSITION: The patient tolerated the procedure well. INDICATIONS: The patient is a 71-year-old female who presented to [facility] with hypoxia, altered mental status and generally not feeling well with weakness. She is awake and alert; however, her history is inconsistent. She states that she is unsure why she is currently in the hospital. Upon admission to [facility] ICU, her oxygen saturations were stable and in the mid 90s at 3 liters nasal cannula. She was having some abdominal pain, more in the right lower abdominal quadrant; however, she did not have any peritoneal signs as well as no hernias. She does have an extensive past medical history including coronary artery disease, peripheral vascular disease, congestive heart failure and also had a recent myocardial infarction in late 06/2021 and is status post angioplasty and stent placement. She also does have a [id number] history of smoking history and continues to smoke. A CT scan was performed, which did show inflammation of the right side of the colon consistent with colitis. On initial examination, the patient did not have peritoneal signs; however, she did develop worsening pain in the right lower abdominal quadrant as well as elevation in her lactic acid, likely consistent with ischemic bowel. DESCRIPTION OF PROCEDURE: The patient was brought to the operating room, laid supine on the table. After adequate IV pain and sedative medications and general endotracheal intubation, the abdomen was prepped and draped in standard surgical fashion. A midline laparotomy incision was then made using a 10 blade. The subcutaneous tissue then was dissected down using electrocautery to the fascia. The fascia was then opened followed by the peritoneal lining using Metzenbaum scissors. There was no free air. There was no free enteric contamination. The fascia and peritoneal lining was then opened to the length of the skin incision using electrocautery. We then proceeded with 4-quadrant abdominal exploration. A dusky ischemic approximately 100 cm of distal small bowel was identified as well as the cecum and ascending colon to the proximal transverse colon. The remainder of the transverse colon, descending colon and sigmoid colon, and rectum as well as the remainder of the small bowel appeared to be well perfused, pink and viable. There was no free perforation or any type of contamination as well as no palpable masses. We then proceeded with mobilization of the right colon taking down the white lines of Toldt laterally using electrocautery. The hepatic flexure was then taken down using blunt dissection as well as electrocautery. An area along the proximal transverse colon that was well perfused was marked and the mesentery was opened using electrocautery and the transverse colon was then stapled and transected using IRINA-75 mm stapler with a blue load. We then proceeded with cauterization and transection of the mesentery intervening the colon using a LigaSure with visualization of good hemostasis. Approximately 100 cm of distal ileum appeared to be ischemic and we then proceeded with cauterization and transection of the mesentery close to the bowel using the LigaSure with visualization of good hemostasis. Once good viable small bowel was identified, this was stapled and transected with a IRINA-75 mm stapler with a blue load. The specimen was then sent to pathology. We then proceeded with a amwj-xi-owyx anastomosis of the transverse colon and the ileum using a IRINA-75 mm stapler. The open end was then reapproximated using 3-0 silk sutures and stapled together with the same stapler with visualization of good hemostasis. The mesentery was then closed using two 3-0 Vicryl running sutures. We then proceeded with 4-quadrant irrigation with warm saline with no other lesions identified as well as again no fecal contamination or any free air. No masses were also identified. This was then suctioned out. A 19-Tanzanian Tyler-Cancino drain was placed along the area of anastomosis as well as the right pericolic gutter into the pelvis. This was tied to the skin using 3-0 nylon suture. The fascia was then closed starting superiorly and inferiorly with #1 looped PDS suture and tied in the middle. The subcutaneous tissue was then reapproximated using 3-0 Vicryl interrupted sutures and the skin was loosely approximated using skin alvarez. The wound was then cleaned and covered with sterile gauze. The patient tolerated the procedure well. Due to extensive past medical history including COPD, we will leave her intubated overnight and anesthesia will also get an arterial line. We will also allow the ICU to continue to manage events as well as other critical care issues. Starting tomorrow, if her hemoglobin is stable, and she still shows no signs of clinical bleeding, anticoagulation may be started. Job ID: [id number] DocumentID: [id number] Dictated Date: 10/21/2021 21:41:37 Boot Liner Maker Date: 10/22/2021 07:12:41 Dictated By: ROMELIA PEREZ MD
[2021-10-22] MEDS: LACTOBACILLUS Acidoph/Bulgar 1 GM (LACTINEX) PACKET PO SCH ×4 (07:48→22:07)
--- NOTE | 2021-10-22 08:25 | Diagnostic Imaging Report ---
EXAMINATION: Chest 1 view HISTORY: Intubation COMPARISON: 10/21/2021 FINDINGS: Endotracheal tube tip terminates 5 cm above the bandar. Gastric tube tip terminates below the field of view. Right internal jugular central venous catheter tip terminates in the superior vena cava. There has been an increase in bilateral airspace opacities. There is a small left effusion and small right effusion. No pneumothorax. There is mild interstitial edema. IMPRESSION: 1. Increase in mild interstitial edema and and bilateral airspace opacities. Findings are likely related to edema. 2. Small bilateral pleural effusions. Dictated by: Dictated on workstation # [id number]
--- NOTE | 2021-10-22 08:43 | Tele-ICU Progress Note ---
Subjective Date Seen by a Provider: Oct 22, 2021 Time Seen by a Provider: 08:43 Subjective/Events-last exam 12:12 PM. So far this patient has been evaluated by me multiple times and I have discussed with the ASBESTOS ABATEMENT WORKER and reviewed with medical students as well. Patient last night underwent exploratory laparotomy with the suspicion of ischemic colon and found to have a ischemic right colon and that she underwent a right hemicolectomy with ileocolostomy ileocolic anastomosis. Postoperatively she left on mechanical ventilation however today she is found to have a low blood pressure and on low-dose Levophed earlier and now she is off. This afternoon she had an episode of sinus tachycardia with a heart rate of 122/min with a good blood pressure. She is given Lopressor 2.5 mg IV with which her heart rate came down to 85/min. Today she has a markedly low sodium which is 123. Urine lites and osmolality has been ordered. At this time I do not think she is stable enough to wean her off the ventilator. Am awaiting for the echocardiographic findings. Echocardiogram done earlier today. Anticoagulants are on hold due to post op bleeding. Review of Systems ROS PER ATTENDING PHYSICIAN. Sepsis Event Evaluation Height, Weight, BMI Height: '" Weight: lbs. oz. kg; 37.33 BMI Method: Focused Exam Lactate Level 10/21/21 12:50: Lactic Acid Level 2.82*H 10/21/21 14:50: Lactic Acid Level 2.34*H 10/21/21 16:55: Lactic Acid Level 3.14*H Exam Exam Patient acknowledged, consented, and participated in this virtual visit which was conducted using real time audio/video Vital Signs Date Time Temp Pulse Resp B/P (MAP) Pulse Ox O2 Delivery O2 Flow Rate FiO2 10/22/21 08:00 36.6 10/22/21 06:52 66 16 94 40 10/22/21 06:15 67 0 95 10/22/21 06:03 69/39 10/22/21 06:02 68 10/22/21 06:00 70 80/43 93 Mechanical Ventilator 40.00 10/22/21 05:45 73 16 94 10/22/21 05:30 75 16 102/48 94 10/22/21 05:22 92 Mechanical Ventilator 40.00 10/22/21 05:21 76 15 92/46 94 10/22/21 05:15 79 7 95 10/22/21 05:00 79 117/49 97 Mechanical Ventilator 50.00 10/22/21 04:45 79 10 98 10/22/21 04:30 80 16 121/58 97 10/22/21 04:15 81 16 98 10/22/21 04:00 95 Mechanical Ventilator 50 10/22/21 04:00 80 108/48 97 Mechanical Ventilator 50.00 10/22/21 03:30 80 16 108/55 95 10/22/21 03:30 80 16 108/55 95 10/22/21 03:15 80 16 94 10/22/21 03:00 80 90/43 94 Mechanical Ventilator 50.00 10/22/21 02:30 79 7 83/53 91 10/22/21 02:24 36.8 Mechanical Ventilator 50.00 10/22/21 02:15 82 6 98 10/22/21 02:14 78 16 91 60 10/22/21 02:00 Mechanical Ventilator 60.00 10/22/21 02:00 84 146/56 100 Mechanical Ventilator 60.00 10/22/21 01:45 82 0 100 10/22/21 01:30 80 0 154/69 100 10/22/21 01:15 78 0 100 10/22/21 01:00 74 10/22/21 01:00 74 127/53 99 Mechanical Ventilator 75.00 10/22/21 00:45 75 0 99 10/22/21 00:35 96 Mechanical Ventilator 75 10/22/21 00:30 103/55 10/22/21 00:00 77 97/47 95 Mechanical Ventilator 75.00 10/22/21 00:00 79 10/21/21 23:45 79 5 95 10/21/21 23:35 Mechanical Ventilator 75.00 10/21/21 23:30 80 0 129/61 95 10/21/21 23:15 76 0 97 10/21/21 23:00 36.4 16 Mechanical Ventilator 90.00 10/21/21 23:00 75 80/51 98 Mechanical Ventilator 90.00 10/21/21 23:00 36.4 16 Mechanical Ventilator 90.00 10/21/21 22:48 75 0 95/49 98 10/21/21 22:45 75 0 97 10/21/21 22:40 36.5 16 91/44 (60) Mechanical Ventilator 10/21/21 22:40 75 0 91/44 97 10/21/21 22:36 Mechanical Ventilator 90 10/21/21 22:30 76 0 88/44 98 10/21/21 22:30 16 80/41 (54) 98 Mechanical Ventilator 10/21/21 22:20 84 10 88/45 96 10/21/21 22:20 16 79/45 (56) 94 Mechanical Ventilator 10/21/21 22:20 Mechanical Ventilator 100 10/21/21 22:15 86 0 91 10/21/21 22:10 16 111/56 (74) 91 Mechanical Ventilator 100 10/21/21 22:05 Mechanical Ventilator 100 10/21/21 22:00 96 12 90/45 92 High Flow N/C 6.00 10/21/21 22:00 16 103/49 (67) 92 Mechanical Ventilator 100 10/21/21 21:55 95 20 106/49 10/21/21 21:49 36.3 19 90 Mechanical Ventilator 100 10/21/21 21:49 78 16 87 100 10/21/21 21:49 Mechanical Ventilator 100 10/21/21 20:00 95 26 90 High Flow N/C 6.00 10/21/21 19:50 91 High Flow N/C 6.00 10/21/21 19:45 126/80 92 10/21/21 19:43 95 26 124/57 93 10/21/21 19:30 92 31 106/64 94 10/21/21 19:15 91/66 10/21/21 19:00 36.8 112/60 High Flow N/C 6.00 10/21/21 19:00 92 10/21/21 19:00 92 17 91/66 93 High Flow N/C 6.00 10/21/21 19:00 36.8 High Flow N/C 6.00 10/21/21 18:34 98 High Flow N/C 5.00 10/21/21 18:00 90 18 112/56 (74) 95 Nasal Cannula 6.00 10/21/21 17:00 90 23 111/68 (82) 95 Nasal Cannula 6.00 10/21/21 16:36 93 High Flow N/C 6.00 10/21/21 16:00 82 22 124/60 (81) 94 Nasal Cannula 6.00 10/21/21 15:48 36.7 84 95 10/21/21 15:40 95 High Flow N/C 5.00 10/21/21 15:00 81 25 136/110 (119) 92 Nasal Cannula 6.00 10/21/21 14:34 83 10/21/21 14:30 129/63 (85) 10/21/21 13:39 36.7 84 22 145/52 98 Nasal Cannula 3.00 10/21/21 12:58 84 95/32 10/21/21 09:43 36.7 105 22 81/47 (58) 98 Nasal Cannula 6.00 10/21/21 09:43 Nasal Cannula 2.00 I & O 10/22/21 07:00 Intake Total 1600 ml Output Total 1630 ml Balance -30 ml Height & Weight Height: '" Weight: lbs. oz. kg; 37.33 BMI Method: General Appearance: Anxious, Chronically ill, Moderate Distress HEENT: Pharynx Normal, Moist Mucous Membranes Neck: Supple Respiratory: No Accessory Muscle Use, No Respiratory Distress, Decreased Breath Sounds Cardiovascular: Regular Rate, Rhythm Capillary Refill: Less Than 3 Seconds Extremity: Normal Capillary Refill, Non Tender, No Calf Tenderness, No Pedal Edema Neurologic/Psychiatric: Alert, Oriented x3 (Oriented x2) Skin: Ecchymosis (grossly distributed over all four extremities ), Erythema (Left forearm) Other comments PE PER ATTENDING PHYSICIAN Results Lab Laboratory Tests 10/21/21 09:50 10/21/21 23:45 10/22/21 04:50 Meds REVIEWED. Radiology CXR REVIEWED Assessment/Plan Assessment/Plan 1. acute ischemic right colon. s/p expl. lap and resection of terminal ileum and right hemicolon with end to end anastomosis 2.post op acute respiratory failure requiring mechanical ventilation 3. severe hyponatremia 4.possible acute and chronic systolic chf vs septic cardiomyopathy 5. History of CAD s/p PCI at [facility] in [place]. 6. History of Hypertension currently hypotensive. 7. Metabolic Encephalopathy. 8. UTI with septic shock. 9.Hyperglycemia due to steroids Recommendation. 1. We will continue mechanical ventilatory support for today I do not have a plan to wean her off the ventilator as she is somewhat unstable. 2. Continue IV antibiotics 3. Hemodynamic support with the Levophed as needed. 4. Hold anticoagulants as she has a postoperative bleeding. 5. We will continue to monitor her BMP and CBC. 6. We will check a echocardiographic findings. Bi Lead is following. 7. We will decrease Solu-Medrol as her sugars are very high. 8. CAD management per cardiology. 9. Surgical management per general surgeon 10. Her overall prognosis is guarded Critical Care: Ventilator Management Time spent with patient (mins): 35 KY HAUSER MD Oct 22, 2021 08:43
[2021-10-22] MEDS: CLOPIDOGREL 75 MG (PLAVIX) TABLET PO SCH (09:17)
[2021-10-22] MEDS: ENOXAPARIN 40 MG/0.4 ML (LOVENOX) SYR SC SCH ×3 (09:17→19:26)
[2021-10-22] MEDS: ASPIRIN 81 MG CHEW (CHILDREN'S ASA) PO SCH (09:17)
[2021-10-22] MEDS: PANTOPRAZOLE 40 MG (PROTONIX) VIAL IV SCH ×2 (09:26→22:07)
[2021-10-22] MEDS: metroNIDAZOLE 500MG/100ML IVPB 100 ML IV SCH ×3 (09:26→22:08)
[2021-10-22] MEDS ORDERED: VANCOMYCIN INJECTION 1,500 MG in NS IV 500 ML 500 ML IV SCH (10:00)
--- NOTE | 2021-10-22 10:15 | Pulmonary Progress Note ---
MAIK CAMILO 10/22/21 1014: Subjective Subjective/Events-last exam The patient was taken to the OR overnight for Hemicolectomy. She then developed acute hypoxic respiratory failure post op requiring mechanical ventilation. She is currently intubated and sedated with DEIRDRE drain in place draining sanguineous fluid. She is hypotensive and on pressors at this time. Review of Systems Cardiovascular: Edema Gastrointestinal: No: Diarrhea, Constipation Exam Exam Patient acknowledged, consented, and participated in this virtual visit which was conducted using real time audio/video Vital Signs Date Time Temp Pulse Resp B/P (MAP) Pulse Ox O2 Delivery O2 Flow Rate FiO2 10/22/21 09:15 85 0 96 Mechanical Ventilator 40.00 10/22/21 09:00 88 10 135/72 94 Mechanical Ventilator 40.00 10/22/21 08:45 86 0 95 Mechanical Ventilator 40.00 10/22/21 08:30 87 0 121/55 95 Mechanical Ventilator 40.00 10/22/21 08:15 86 0 95 Mechanical Ventilator 40.00 10/22/21 08:00 95 Mechanical Ventilator 50 10/22/21 08:00 85 7 111/52 95 Mechanical Ventilator 40.00 10/22/21 08:00 36.6 10/22/21 07:45 85 0 95 Mechanical Ventilator 40.00 10/22/21 07:30 85 0 115/51 95 Mechanical Ventilator 40.00 10/22/21 07:15 72 0 94 Mechanical Ventilator 40.00 10/22/21 07:00 85 10/22/21 07:00 69 0 134/60 95 Mechanical Ventilator 40.00 10/22/21 06:52 66 16 94 40 10/22/21 06:15 67 0 95 10/22/21 06:03 69/39 10/22/21 06:02 68 10/22/21 06:00 70 80/43 93 Mechanical Ventilator 40.00 10/22/21 05:45 73 16 94 10/22/21 05:30 75 16 102/48 94 10/22/21 05:22 92 Mechanical Ventilator 40.00 10/22/21 05:21 76 15 92/46 94 10/22/21 05:15 79 7 95 10/22/21 05:00 79 117/49 97 Mechanical Ventilator 50.00 10/22/21 04:45 79 10 98 10/22/21 04:30 80 16 121/58 97 10/22/21 04:15 81 16 98 10/22/21 04:00 95 Mechanical Ventilator 50 10/22/21 04:00 80 108/48 97 Mechanical Ventilator 50.00 10/22/21 03:30 80 16 108/55 95 10/22/21 03:30 80 16 108/55 95 10/22/21 03:15 80 16 94 10/22/21 03:00 80 90/43 94 Mechanical Ventilator 50.00 10/22/21 02:30 79 7 83/53 91 10/22/21 02:24 36.8 Mechanical Ventilator 50.00 10/22/21 02:15 82 6 98 10/22/21 02:14 78 16 91 60 10/22/21 02:00 Mechanical Ventilator 60.00 10/22/21 02:00 84 146/56 100 Mechanical Ventilator 60.00 10/22/21 01:45 82 0 100 10/22/21 01:30 80 0 154/69 100 10/22/21 01:15 78 0 100 10/22/21 01:00 74 10/22/21 01:00 74 127/53 99 Mechanical Ventilator 75.00 10/22/21 00:45 75 0 99 10/22/21 00:35 96 Mechanical Ventilator 75 10/22/21 00:30 103/55 10/22/21 00:00 77 97/47 95 Mechanical Ventilator 75.00 10/22/21 00:00 79 10/21/21 23:45 79 5 95 10/21/21 23:35 Mechanical Ventilator 75.00 10/21/21 23:30 80 0 129/61 95 10/21/21 23:15 76 0 97 10/21/21 23:00 36.4 16 Mechanical Ventilator 90.00 10/21/21 23:00 75 80/51 98 Mechanical Ventilator 90.00 10/21/21 23:00 36.4 16 Mechanical Ventilator 90.00 10/21/21 22:48 75 0 95/49 98 10/21/21 22:45 75 0 97 10/21/21 22:40 36.5 16 91/44 (60) Mechanical Ventilator 10/21/21 22:40 75 0 91/44 97 10/21/21 22:36 Mechanical Ventilator 90 10/21/21 22:30 76 0 88/44 98 10/21/21 22:30 16 80/41 (54) 98 Mechanical Ventilator 10/21/21 22:20 84 10 88/45 96 10/21/21 22:20 16 79/45 (56) 94 Mechanical Ventilator 10/21/21 22:20 Mechanical Ventilator 100 10/21/21 22:15 86 0 91 10/21/21 22:10 16 111/56 (74) 91 Mechanical Ventilator 100 10/21/21 22:05 Mechanical Ventilator 100 10/21/21 22:00 96 12 90/45 92 High Flow N/C 6.00 10/21/21 22:00 16 103/49 (67) 92 Mechanical Ventilator 100 10/21/21 21:55 95 20 106/49 10/21/21 21:49 36.3 19 90 Mechanical Ventilator 100 10/21/21 21:49 78 16 87 100 10/21/21 21:49 Mechanical Ventilator 100 10/21/21 20:00 95 26 90 High Flow N/C 6.00 10/21/21 19:50 91 High Flow N/C 6.00 10/21/21 19:45 126/80 92 10/21/21 19:43 95 26 124/57 93 10/21/21 19:30 92 31 106/64 94 10/21/21 19:15 91/66 10/21/21 19:00 36.8 112/60 High Flow N/C 6.00 10/21/21 19:00 92 10/21/21 19:00 92 17 91/66 93 High Flow N/C 6.00 10/21/21 19:00 36.8 High Flow N/C 6.00 10/21/21 18:34 98 High Flow N/C 5.00 10/21/21 18:00 90 18 112/56 (74) 95 Nasal Cannula 6.00 10/21/21 17:00 90 23 111/68 (82) 95 Nasal Cannula 6.00 10/21/21 16:36 93 High Flow N/C 6.00 10/21/21 16:00 82 22 124/60 (81) 94 Nasal Cannula 6.00 10/21/21 15:48 36.7 84 95 10/21/21 15:40 95 High Flow N/C 5.00 10/21/21 15:00 81 25 136/110 (119) 92 Nasal Cannula 6.00 10/21/21 14:34 83 10/21/21 14:30 129/63 (85) 10/21/21 13:39 36.7 84 22 145/52 98 Nasal Cannula 3.00 10/21/21 12:58 84 95/32 I & O 10/22/21 06:59 Intake Total 1600 ml Output Total 1630 ml Balance -30 ml Height & Weight Height: '" Weight: lbs. oz. kg; 37.33 BMI Method: General Appearance: Chronically ill, Other (Supine, intubated and sedated.) HEENT: Moist Mucous Membranes Neck: Supple Respiratory: No Accessory Muscle Use, No Crackles; Decreased Breath Sounds, Other (Intubated) Cardiovascular: Regular Rate, Rhythm Capillary Refill: Less Than 3 Seconds Gastrointestinal: abnormal bowel sounds (Absent, midline incision dressing is clean, dry, and intact.) Extremity: Pedal Edema Neurologic/Psychiatric: Other (Patient is sedated ) Skin: Normal Color, Warm/Dry, Ecchymosis (grossly distributed over all four extremities ), Erythema (Left forearm) Results Lab Laboratory Tests 10/21/21 09:50 10/21/21 23:45 10/22/21 04:50 Assessment/Plan Assessment/Plan * acute ischemic right colon. s/p expl. lap and resection of terminal ileum and right hemicolon with end to end anastomosis * post op acute respiratory failure requiring mechanical ventilation * severe hyponatremia * possible acute and chronic systolic chf vs septic cardiomyopathy * History of CAD s/p PCI at [facility] in [place]. * History of Hypertension currently hypotensive. * UTI with septic shock. * Hyperglycemia due to steroids Plan: * Reduce steroid dose to 40mg * NO SBT today * Repeat Lactic acid * Consult cardiology for holding Lovenox, ASA, and plavix due to post op bleeding * Continue to monitor Na. Hold off on fluids given volume overload * Continue pressor support * GI and ulcer prophylaxis * Continue Vancmycinf and Meropenem Critical Care: Ventilator Management KY HAUSER MD 10/22/21 1509: Subjective Date Seen by a Provider: Oct 22, 2021 Time Seen by a Provider: 11:20 Supervisory-Addendum Brief Verification & Attestation Participated in pt care: history, MDM Personally performed: history, supervision of care Care discussed with: Medical Student Procedures: n/a I have made a video visit and asses the patient. findings reviewed with medical student and formulated the plan of care MAIK CAMILO Oct 22, 2021 10:14 KY HAUSER MD Oct 22, 2021 15:09
[2021-10-22] MEDS ORDERED: OMEG-160 PO (10:21)
[2021-10-22] MEDS ORDERED: ALPR0.5T7 PO (10:21)
[2021-10-22] MEDS ORDERED: AMIT25TA9 PO (10:21)
[2021-10-22] MEDS ORDERED: TIZA-169 PO (10:21)
[2021-10-22] MEDS ORDERED: TORS20TA3 PO (10:21)
[2021-10-22] MEDS ORDERED: ACHD5005 PO (10:21)
[2021-10-22] MEDS ORDERED: EMPA10TA PO (10:21)
[2021-10-22] MEDS ORDERED: DICY10CA12 PO (10:21)
[2021-10-22] MEDS ORDERED: CLOP75TA28 PO (10:21)
[2021-10-22] MEDS ORDERED: ASPI-1238 PO (10:21)
[2021-10-22] MEDS ORDERED: ROPI2TAB6 PO (10:21)
[2021-10-22] MEDS ORDERED: LEVO88TA54 PO (10:21)
[2021-10-22] MEDS ORDERED: PANT40TA52 PO (10:21)
[2021-10-22] MEDS ORDERED: CALC600T91 PO (10:21)
[2021-10-22] MEDS ORDERED: ATOR80TA76 PO (10:21)
[2021-10-22] MEDS ORDERED: GABA-490 PO (10:21)
--- NOTE | 2021-10-22 10:32 | Progress Note - Cardiology ---
Cardiology SOAP Progress Note Subjective: Intubated and on [facility] vent Unable to communicate Objective: I&O/Vital Signs 10/21/21 10/21/21 10/21/21 10/21/21 22:30 22:30 22:36 22:40 Pulse 76 75 Resp 16 0 0 B/P (MAP) 80/41 (54) 88/44 91/44 Pulse Ox 98 98 97 O2 Delivery Mechanical Ventilator Mechanical Ventilator O2 Flow Rate 90 10/21/21 10/21/21 10/21/21 10/21/21 22:40 22:45 22:48 23:00 Temp 36.5 36.4 Pulse 75 75 Resp 16 0 0 16 B/P (MAP) 91/44 (60) 95/49 Pulse Ox 97 98 O2 Delivery Mechanical Ventilator Mechanical Ventilator O2 Flow Rate 90.00 10/21/21 10/21/21 10/21/21 10/21/21 23:00 23:00 23:15 23:30 Temp 36.4 Pulse 75 76 80 Resp 16 0 0 B/P (MAP) 80/51 129/61 Pulse Ox 98 97 95 O2 Delivery Mechanical Ventilator Mechanical Ventilator O2 Flow Rate 90.00 90.00 10/21/21 10/21/21 10/22/21 10/22/21 23:35 23:45 00:00 00:00 Pulse 79 79 77 Resp 5 B/P (MAP) 97/47 Pulse Ox 95 95 O2 Delivery Mechanical Ventilator Mechanical Ventilator O2 Flow Rate 75.00 75.00 10/22/21 10/22/21 10/22/21 10/22/21 00:30 00:35 00:45 01:00 Pulse 75 74 Resp 0 B/P (MAP) 103/55 127/53 Pulse Ox 96 99 99 O2 Delivery Mechanical Ventilator Mechanical Ventilator O2 Flow Rate 75.00 FiO2 75 10/22/21 10/22/21 10/22/21 10/22/21 01:00 01:15 01:30 01:45 Pulse 74 78 80 82 Resp 0 0 0 B/P (MAP) 154/69 Pulse Ox 100 100 100 10/22/21 10/22/21 10/22/21 10/22/21 02:00 02:00 02:14 02:15 Pulse 84 78 82 Resp 16 6 B/P (MAP) 146/56 Pulse Ox 100 91 98 O2 Delivery Mechanical Ventilator Mechanical Ventilator O2 Flow Rate 60.00 60.00 FiO2 60 10/22/21 10/22/21 10/22/21 10/22/21 02:24 02:30 03:00 03:15 Temp 36.8 Pulse 79 80 80 Resp 7 16 B/P (MAP) 83/53 90/43 Pulse Ox 91 94 94 O2 Delivery Mechanical Ventilator Mechanical Ventilator O2 Flow Rate 50.00 50.00 10/22/21 10/22/21 10/22/21 10/22/21 03:30 03:30 04:00 04:00 Pulse 80 80 80 Resp 16 16 B/P (MAP) 108/55 108/55 108/48 Pulse Ox 95 95 97 95 O2 Delivery Mechanical Ventilator Mechanical Ventilator O2 Flow Rate 50.00 FiO2 50 10/22/21 10/22/21 10/22/21 10/22/21 04:15 04:30 04:45 05:00 Pulse 81 80 79 79 Resp 16 16 10 B/P (MAP) 121/58 117/49 Pulse Ox 98 97 98 97 O2 Delivery Mechanical Ventilator O2 Flow Rate 50.00 10/22/21 10/22/21 10/22/21 10/22/21 05:15 05:21 05:22 05:30 Pulse 79 76 75 Resp 7 15 16 B/P (MAP) 92/46 102/48 Pulse Ox 95 94 92 94 O2 Delivery Mechanical Ventilator O2 Flow Rate 40.00 10/22/21 10/22/21 10/22/21 10/22/21 05:45 06:00 06:02 06:03 Pulse 73 70 68 Resp 16 B/P (MAP) 80/43 69/39 Pulse Ox 94 93 O2 Delivery Mechanical Ventilator O2 Flow Rate 40.00 10/22/21 10/22/21 10/22/21 10/22/21 06:15 06:52 07:00 07:00 Pulse 67 66 69 85 Resp 0 16 0 B/P (MAP) 134/60 Pulse Ox 95 94 95 O2 Delivery Mechanical Ventilator O2 Flow Rate 40.00 FiO2 40 10/22/21 10/22/21 10/22/21 10/22/21 07:15 07:30 07:45 08:00 Temp 36.6 Pulse 72 85 85 Resp 0 0 0 B/P (MAP) 115/51 Pulse Ox 94 95 95 O2 Delivery Mechanical Ventilator Mechanical Ventilator Mechanical Ventilator O2 Flow Rate 40.00 40.00 40.00 10/22/21 10/22/21 10/22/21 10/22/21 08:00 08:00 08:15 08:30 Pulse 85 86 87 Resp 7 0 0 B/P (MAP) 111/52 121/55 Pulse Ox 95 95 95 95 O2 Delivery Mechanical Ventilator Mechanical Ventilator Mechanical Ventilator Mechanical Ventilator O2 Flow Rate 40.00 40.00 40.00 FiO2 50 10/22/21 10/22/21 10/22/21 08:45 09:00 09:15 Pulse 86 88 85 Resp 0 10 0 B/P (MAP) 135/72 Pulse Ox 95 94 96 O2 Delivery Mechanical Ventilator Mechanical Ventilator Mechanical Ventilator O2 Flow Rate 40.00 40.00 40.00 10/22/21 00:00 Intake Total 600 ml Output Total 610 ml Balance -10 ml Constitutional: other (on mech vent) Respiratory: No accessory muscle use, No respiratory distress; chest expansion is symmetric, chest is bilaterally symmetric, rhonchi (scattered), other (coarse breathsounds throughout) Cardiovascular: regular rate-rhythm; No JVD; S1 and S2 Gastrointestional: other (post-op) Extremities: other (mod bilat LE swelling) Neurologic/Psychiatric: other (unable to cooperate with exam) Skin: other (multiple abrasions and dressings to arms/hands bilat; multiple skin tears, bruises and abrasions to legs bilat) Results/Procedures: Labs Laboratory Tests 10/21/21 10:33: Blood Gas Puncture Site LT. RADIAL, Blood Gas Patient Temperature 37.6, Arterial Blood pH 7.40, Arterial Blood Partial Pressure CO2 52H, Arterial Blood Partial Pressure O2 25*L, Arterial Blood HCO3 32H, Arterial Blood Total CO2 33.8H, Arterial Blood Oxygen Saturation 45L, Arterial Blood Base Excess 6.1H, Gonzalo Test YES-POS, Blood Gas Ventilator Setting NO, Blood Gas Inspired Oxygen 4L 10/21/21 10:40: Influenza Type A Antigen NEGATIVE, Influenza Type B Antigen NEGATIVE 10/21/21 12:50: Lactic Acid Level 2.82*H 10/21/21 14:30: SARS-CoV-2 RNA (RT-PCR) Not Detected 10/21/21 14:50: Lactic Acid Level 2.34*H 10/21/21 16:55: Lactic Acid Level 3.14*H 10/21/21 23:45: Sodium Level 125*L, Potassium Level 4.1, Chloride Level 89L, Carbon Dioxide Level 21, Anion Gap 15H, Blood Urea Nitrogen 16, Creatinine 1.63H, Estimat Glomerular Filtration Rate 31, BUN/Creatinine Ratio 10, Glucose Level 403*H, Glucometer 415*H, Calcium Level 7.9L, Phosphorus Level 5.0H, Magnesium Level 1.4L 10/22/21 04:50: Sodium Level 123*L, Potassium Level 3.8, Chloride Level 89L, Carbon Dioxide Level 22, Anion Gap 12, Blood Urea Nitrogen 17, Creatinine 1.61H, Estimat Glomerular Filtration Rate 32, BUN/Creatinine Ratio 11, Glucose Level 472*H, Ca lcium Level 8.1L, Phosphorus Level 4.1, Magnesium Level 2.7H, White Blood Count 25.9H, Red Blood Count 3.33L, Hemoglobin 9.5L, Hematocrit 29L, Mean Corpuscular Volume 87, Mean Corpuscular Hemoglobin 29, Mean Corpuscular Hemoglobin Concent 33, Red Cell Distribution Width 16.1H, Platelet Count 188, Mean Platelet Volume 10.2, Immature Granulocyte % (Auto) 1, Neutrophils (%) (Auto) 93H, Lymphocytes (%) (Auto) 3L, Monocytes (%) (Auto) 3, Eosinophils (%) (Auto) 0, Basophils (%) (Auto) 0, Neutrophils # (Auto) 24.2H, Lymphocytes # (Auto) 0.7L, Monocytes # (Auto) 0.9, Eosinophils # (Auto) 0.0, Basophils # (Auto) 0.1, Immature Granulocyte # (Auto) 0.2H, Blood Gas Puncture Site L BRACHIAL, Blood Gas Patient Temperature 36.8, Arterial Blood pH 7.42, Arterial Blood Partial Pressure CO2 39, Arterial Blood Partial Pressure O2 168H, Arterial Blood HCO3 25, Arterial Blood Total CO2 26.0, Arterial Blood Oxygen Saturation 99, Arterial Blood Base Excess 0.9, Gonzalo Test YES-POS, Blood Gas Ventilator Setting YES, Blood Gas I nspired Oxygen 50%, Triglycerides Level 176H 10/22/21 10:10: A/P: Assessment: Sepsis (preop) - s/p exploratory laparotomy, right hemicolectomy, ileal resection(100cm) with ileocolonic anastamosis on 12/3/21 - continuing post-op resp failure - ongoing bleeding from surgery site CAD - reports follows with cardiology at [facility] in [place] - reports recent cardiac stents placed in June [address] [facility] Acute on chronic exacerbation of COPD Acute on chronic CHF (reports h/o CHF) DM 2 HTN HLD Frequent falls Frequent UTI's Plan: Complex management Need to hold anticoag and antiplatelets today due to post op bleeding Resume ASA and Plavix as soon as possible Monitor labs MIRTA AL MD FACP FAC CCDS Oct 22, 2021 10:32
[2021-10-22] MEDS ORDERED: meTOprolol 5 MG/5 ML (LOPRESSOR) VIAL ONE (12:06)
[2021-10-22] MEDS ORDERED: meTOprolol 5 MG/5 ML (LOPRESSOR) VIAL IV STA (12:08)
--- NOTE | 2021-10-22 12:26 | Progress Note ---
Subjective Date Seen by a Provider: Oct 22, 2021 Time Seen by a Provider: 10:00 Subjective/Events-last exam doing ok. on vent/sedated. plan to ween vent to extubation. continue bowel rest and abx. cont lovenox Focused Exam Lactate Level 10/21/21 14:50: Lactic Acid Level 2.34*H 10/21/21 16:55: Lactic Acid Level 3.14*H 10/22/21 10:10: Lactic Acid Level 1.49 Lactic Acid Level Laboratory Tests Test 10/22/21 10:10 Lactic Acid Level 1.49 MMOL/L (0.50-2.00) Objective Exam Vital Signs Date Time Temp Pulse Resp B/P (MAP) Pulse Ox O2 Delivery O2 Flow Rate FiO2 10/22/21 12:20 85 94/47 10/22/21 12:00 36.8 10/22/21 11:16 95 Mechanical Ventilator 50 10/22/21 11:15 84 96 Mechanical Ventilator 40.00 10/22/21 11:00 85 125/60 (79) 96 Mechanical Ventilator 40.00 10/22/21 10:50 85 16 96 40 10/22/21 10:30 85 132/63 (87) 96 Mechanical Ventilator 40.00 10/22/21 10:15 85 96 Mechanical Ventilator 40.00 10/22/21 10:00 86 134/66 (88) 96 Mechanical Ventilator 40.00 10/22/21 09:45 85 95 Mechanical Ventilator 40.00 10/22/21 09:30 85 140/63 (86) 95 Mechanical Ventilator 40.00 10/22/21 09:15 85 0 96 Mechanical Ventilator 40.00 10/22/21 09:15 85 96 Mechanical Ventilator 40.00 10/22/21 09:00 88 10 135/72 94 Mechanical Ventilator 40.00 10/22/21 09:00 88 135/72 (83) 94 Mechanical Ventilator 40.00 10/22/21 08:52 85 95 Mechanical Ventilator 40.00 10/22/21 08:45 86 0 95 Mechanical Ventilator 40.00 10/22/21 08:37 86 95 Mechanical Ventilator 40.00 10/22/21 08:30 87 0 121/55 95 Mechanical Ventilator 40.00 10/22/21 08:30 87 121/55 (80) 95 Mechanical Ventilator 40.00 10/22/21 08:22 87 95 Mechanical Ventilator 40.00 10/22/21 08:15 86 0 95 Mechanical Ventilator 40.00 10/22/21 08:07 85 95 Mechanical Ventilator 40.00 10/22/21 08:00 95 Mechanical Ventilator 50 10/22/21 08:00 85 7 111/52 95 Mechanical Ventilator 40.00 10/22/21 08:00 85 111/52 (72) 95 Mechanical Ventilator 40.00 10/22/21 08:00 36.6 10/22/21 07:45 85 0 95 Mechanical Ventilator 40.00 10/22/21 07:37 85 95 Mechanical Ventilator 40.00 10/22/21 07:30 85 0 115/51 95 Mechanical Ventilator 40.00 10/22/21 07:30 85 115/51 (71) 95 Mechanical Ventilator 40.00 10/22/21 07:22 78 95 Mechanical Ventilator 40.00 10/22/21 07:15 72 0 94 Mechanical Ventilator 40.00 10/22/21 07:00 85 10/22/21 07:00 69 0 134/60 95 Mechanical Ventilator 40.00 10/22/21 06:52 66 16 94 40 10/22/21 06:15 67 0 95 10/22/21 06:03 69/39 10/22/21 06:02 68 10/22/21 06:00 70 80/43 93 Mechanical Ventilator 40.00 10/22/21 05:45 73 16 94 10/22/21 05:30 75 16 102/48 94 10/22/21 05:22 92 Mechanical Ventilator 40.00 10/22/21 05:21 76 15 92/46 94 10/22/21 05:15 79 7 95 10/22/21 05:00 79 117/49 97 Mechanical Ventilator 50.00 10/22/21 04:45 79 10 98 10/22/21 04:30 80 16 121/58 97 10/22/21 04:15 81 16 98 10/22/21 04:00 95 Mechanical Ventilator 50 10/22/21 04:00 80 108/48 97 Mechanical Ventilator 50.00 10/22/21 03:30 80 16 108/55 95 10/22/21 03:30 80 16 108/55 95 10/22/21 03:15 80 16 94 10/22/21 03:00 80 90/43 94 Mechanical Ventilator 50.00 10/22/21 02:30 79 7 83/53 91 10/22/21 02:24 36.8 Mechanical Ventilator 50.00 10/22/21 02:15 82 6 98 10/22/21 02:14 78 16 91 60 10/22/21 02:00 Mechanical Ventilator 60.00 10/22/21 02:00 84 146/56 100 Mechanical Ventilator 60.00 10/22/21 01:45 82 0 100 10/22/21 01:30 80 0 154/69 100 10/22/21 01:15 78 0 100 10/22/21 01:00 74 10/22/21 01:00 74 127/53 99 Mechanical Ventilator 75.00 10/22/21 00:45 75 0 99 10/22/21 00:35 96 Mechanical Ventilator 75 10/22/21 00:30 103/55 10/22/21 00:00 77 97/47 95 Mechanical Ventilator 75.00 10/22/21 00:00 79 10/21/21 23:45 79 5 95 10/21/21 23:35 Mechanical Ventilator 75.00 10/21/21 23:30 80 0 129/61 95 10/21/21 23:15 76 0 97 10/21/21 23:00 36.4 16 Mechanical Ventilator 90.00 10/21/21 23:00 75 80/51 98 Mechanical Ventilator 90.00 10/21/21 23:00 36.4 16 Mechanical Ventilator 90.00 10/21/21 22:48 75 0 95/49 98 10/21/21 22:45 75 0 97 10/21/21 22:40 36.5 16 91/44 (60) Mechanical Ventilator 10/21/21 22:40 75 0 91/44 97 10/21/21 22:36 Mechanical Ventilator 90 10/21/21 22:30 76 0 88/44 98 10/21/21 22:30 16 80/41 (54) 98 Mechanical Ventilator 10/21/21 22:20 84 10 88/45 96 10/21/21 22:20 16 79/45 (56) 94 Mechanical Ventilator 10/21/21 22:20 Mechanical Ventilator 100 10/21/21 22:15 86 0 91 10/21/21 22:10 16 111/56 (74) 91 Mechanical Ventilator 100 10/21/21 22:05 Mechanical Ventilator 100 10/21/21 22:00 96 12 90/45 92 High Flow N/C 6.00 10/21/21 22:00 16 103/49 (67) 92 Mechanical Ventilator 100 10/21/21 21:55 95 20 106/49 10/21/21 21:49 36.3 19 90 Mechanical Ventilator 100 10/21/21 21:49 78 16 87 100 10/21/21 21:49 Mechanical Ventilator 100 10/21/21 20:00 95 26 90 High Flow N/C 6.00 10/21/21 19:50 91 High Flow N/C 6.00 10/21/21 19:45 126/80 92 10/21/21 19:43 95 26 124/57 93 10/21/21 19:30 92 31 106/64 94 10/21/21 19:15 91/66 10/21/21 19:00 36.8 112/60 High Flow N/C 6.00 10/21/21 19:00 92 10/21/21 19:00 92 17 91/66 93 High Flow N/C 6.00 10/21/21 19:00 36.8 High Flow N/C 6.00 10/21/21 18:34 98 High Flow N/C 5.00 10/21/21 18:00 90 18 112/56 (74) 95 Nasal Cannula 6.00 10/21/21 17:00 90 23 111/68 (82) 95 Nasal Cannula 6.00 10/21/21 16:36 93 High Flow N/C 6.00 10/21/21 16:00 82 22 124/60 (81) 94 Nasal Cannula 6.00 10/21/21 15:48 36.7 84 95 10/21/21 15:40 95 High Flow N/C 5.00 10/21/21 15:00 81 25 136/110 (119) 92 Nasal Cannula 6.00 10/21/21 14:34 83 10/21/21 14:30 129/63 (85) 10/21/21 13:39 36.7 84 22 145/52 98 Nasal Cannula 3.00 10/21/21 12:58 84 95/32 I & O 10/22/21 07:00 Intake Total 1600 ml Output Total 1630 ml Balance -30 ml Capillary Refill : Less Than 3 SecondsLess Than 3 Seconds General Appearance: No Apparent Distress HEENT: PERRL/EOMI Neck: Full Range of Motion Respiratory: Decreased Breath Sounds, Rhonci Cardiovascular: Regular Rate, Rhythm Gastrointestinal: soft, tenderness, other (wound clean/dry) Extremity: Normal Capillary Refill Neurologic/Psychiatric: Alert, Oriented x3 Skin: Normal Color Lymphatic: No Adenopathy Results Lab Laboratory Tests 10/21/21 12:50: Lactic Acid Level 2.82*H 10/21/21 14:30: SARS-CoV-2 RNA (RT-PCR) Not Detected 10/21/21 14:50: Lactic Acid Level 2.34*H 10/21/21 16:55: Lactic Acid Level 3.14*H 10/21/21 23:45: Sodium Level 125*L, Potassium Level 4.1, Chloride Level 89L, Carbon Dioxide Level 21, Anion Gap 15H, Blood Urea Nitrogen 16, Creatinine 1.63H, Estimat Glomerular Filtration Rate 31, BUN/Creatinine Ratio 10, Glucose Level 403*H, G lucometer 415*H, Calcium Level 7.9L, Phosphorus Level 5.0H, Magnesium Level 1.4L 10/22/21 04:50: Sodium Level 123*L, Potassium Level 3.8, Chloride Level 89L, Carbon Dioxide Level 22, Anion Gap 12, Blood Urea Nitrogen 17, Creatinine 1.61H, Estimat Glomerular Filtration Rate 32, BUN/Creatinine Ratio 11, Glucose Level 472*H, Calcium Level 8.1L, Phosphorus Level 4.1, Magnesium Level 2.7H, White Blood Count 25.9H, Red Blood Count 3.33L, Hemoglobin 9.5L, Hematocrit 29L, Mean Corpuscular Volume 87, Mean Corpuscular Hemoglobin 29, Mean Corpuscular Hemoglobin Concent 33, Red Cell Distribution Width 16.1H, Platelet Count 188, Mean Platelet Volume 10.2, Immature Granulocyte % (Auto) 1, Neutrophils (%) (Auto) 93H, Lymphocytes (%) (Auto) 3L, Monocytes (%) (Auto) 3, Eosinophils (%) (Auto) 0, Basophils (%) (Auto) 0, Neutrophils # (Auto) 24.2H, Lymphocytes # (Auto) 0.7L, Monocytes # (Auto) 0.9, Eosinophils # (Auto) 0.0, Basophils # (Auto) 0.1, Immature Granulocyte # (Auto) 0.2H, Blood Gas Puncture Site L BRACHIAL, Blood Gas Patient Temperature 36.8, Arterial Blood pH 7.42, Arterial Blood Partial Pressure CO2 39, Arterial Blood Partial Pressure O2 168H, Arterial Blood HCO3 25, Arterial Blood Total CO2 26.0, Arterial Blood Oxygen Saturation 99, Arterial Blood Base Excess 0.9, Gonzalo Test YES-POS, Blood Gas Ventilator Setting YES, Blood Gas Inspired Oxygen 50%, Triglycerides Level 176H 10/22/21 10:10: Lactic Acid Level 1.49 10/22/21 12:00: Glucometer 356H Assessment/Plan Assessment/Plan Assess & Plan/Chief Complaint s/p expl laparotomy and SBR and RHC. cont vent ween. cont IV abx. await bowel fxn. cont lovenox MONICA FERNANDEZ MD Oct 22, 2021 12:25
[2021-10-22] MEDS ORDERED: INSU100V31 SQ (12:54)
[2021-10-22] MEDS ORDERED: INSN1U SQ (12:54)
[2021-10-22] MEDS ORDERED: PRED5TAB PO (12:54)
[2021-10-22] MEDS ORDERED: BUDE10.2 INH (13:01)
[2021-10-22] MEDS ORDERED: METO-333 PO (13:01)
--- NOTE | 2021-10-22 14:10 | Progress Note - Hospitalist ---
CHRIS ARGUETA 10/22/21 1410: Subjective HPI/CC On Admission Date Seen by Provider: Oct 22, 2021 Time Seen by Provider: 08:40 CC: Respiratory Failure HPI: This is an elderly female clinic pt of with a hx of COPD who continues to smoke who presented to the [facility] ER with altered mental status, was found to have B/L pneumonia with respiratory insufficiency requiring central line and severe sepsis IV fluids with pressor therapy. She was given Meropenem and Vancomycin due to multiple allergies and EICU was given report by [facility] ER. At this current time pt remains stable but high risk for intubation. At time of rounds patient was preparing for emergent surgery due to ischemic bowel suspected and Dr. FERNANDEZ will perform the surgery Subjective/Events-last exam Patient is on a vent and having an echo done when I came to visit today. Yesterday patient had an emergent ex lap for suspected acute ischemic colitis. Patient ended up having a right hemicolectomy with ~100 cm of bowel removed. Patient developed acute hypoxic respiratory failure post op requiring mechanical ventilation. She is currently intubated and sedated with DEIRDRE drain in place draining sanguineous fluid. She is hypotensive and on pressors at this time. Focused Exam Lactate Level 10/21/21 14:50: Lactic Acid Level 2.34*H 10/21/21 16:55: Lactic Acid Level 3.14*H 10/22/21 10:10: Lactic Acid Level 1.49 Lactic Acid Level Objective Exam Vital Signs Vital Signs Date Time Temp Pulse Resp B/P (MAP) Pulse Ox O2 Delivery O2 Flow Rate FiO2 10/22/21 13:55 Mechanical Ventilator 40.00 10/22/21 13:30 89 0 95 10/22/21 12:00 36.8 10/22/21 11:16 50 Capillary Refill : Less Than 3 SecondsLess Than 3 Seconds General Appearance: Chronically ill Neck: Normal Inspection, Supple Respiratory: No Accessory Muscle Use; No Crackles Cardiovascular: Regular Rate, Rhythm, No Murmur Rectal: Deferred Extremity: Pedal Edema Neurologic/Psychiatric: Other (patient sedated and intubated) Results/Procedures Lab Laboratory Tests 10/21/21 23:45 10/22/21 04:50 Patient resulted labs reviewed. Assessment/Plan Assessment and Plan Assess & Plan/Chief Complaint Assessment Sepsis Acute ischemic colitis status post ex lap with resection of terminal ileum and right hemicolon with anastomosis Hyponatremia Hyperglycemia UTI CAD History of MD Plan Reduce steroids to 40 mg Continue Abx Hold fluids Continue monitoring labs + lactic acid Continue pressors Start PPIs for gastritis prophylaxis Continue following with cardiology Continue following with surgery KATYA JARQUIN DO 10/23/21 0710: Subjective Subjective/Events-last exam Pt about the same Remains intubated S/P acute ischemic bowel removed 100 cm of right colon and anastomoses initiated Vent settings include 550/16/5/40 The ABG was 7.42/39/168 Had an MD in June of 2021 but she is bleeding from the op site so will need to talk to cardiology Sodium is 123 Solumedrol was decreased Objective Exam General Appearance: No Apparent Distress, WD/WN, Chronically ill Respiratory: Decreased Breath Sounds Cardiovascular: Regular Rate, Rhythm Assessment/Plan Assessment and Plan Assess & Plan/Chief Complaint Supportive care Decrease steroids Ventilator management appreciated Supervisory-Addendum Brief Verification & Attestation Participated in pt care: history, MDM, physical Personally performed: exam, history, MDM, supervision of care Care discussed with: Medical Student Procedures: n/a Results interpretation: Verified all documentation Verification and Attestation of Medical Student E/M Service A medical student performed and documented this service in my presence. I reviewed and verified all information documented by the medical student and made modifications to such information, when appropriate. I personally performed the physical exam and medical decision making. Katya Jarquin, Oct 23, 2021,07:09 CHRIS ARGUETA Oct 22, 2021 14:10 KATYA JARQUIN DO Oct 23, 2021 07:10
[2021-10-22] MEDS: LACTATED RINGERS 1,000 ML IV SCH (16:45)
[2021-10-23] MEDS: MEROPENEM 500 MG in NS (IVPB) 100 ML IV SCH ×5 (00:13→23:55)
[2021-10-23] MEDS: inSUlin ASPART (NovoLOG) 1 UNIT/0.01 ML (CHARGE PER UNIT) SC SCH ×5 (00:14→23:55)
[2021-10-23] MEDS: PROPOFOL DRIP (ICU) 100 ML IV SCH ×4 (02:01→09:22)
[2021-10-23 02:20] VITALS: BP 111/55
[2021-10-23] MEDS: RT-ALBUTEROL/IPRATROPIUM 3 ML (DUONEB) VIAL INH SCH ×6 (02:20→21:55)
[2021-10-23] MEDS: NOREPINEPHRINE 8 MG/250 ML 250 ML IV SCH ×2 (04:03→23:44)
[2021-10-23 04:37] LABS: BASOPHILS # (AUTO) 0.1 10^3/uL (0.0-0.1); BASOPHILS % (AUTO) 0 % (0-10); EOSINOPHILS # (AUTO) 0.1 10^3/uL (0.0-0.3); EOSINOPHILS % (AUTO) 0 % (0-10); HEMATOCRIT 27 % (35-52); LYMPHOCYTES # (AUTO) 0.3 10^3/uL (1.0-4.0); LYMPHOCYTES % (AUTO) 1 % (12-44); MEAN CORPUSCULAR HEMOGLOBIN 28 pg (25-34); MEAN CORPUSCULAR HGB CONC 33 g/dL (32-36); MEAN CORPUSCULAR VOLUME 86 fL (80-99); MEAN PLATELET VOLUME 10.6 fL (9.0-12.2); MONOCYTES # (AUTO) 1.2 10^3/uL (0.0-1.0); MONOCYTES % (AUTO) 3 % (0-12); NEUTROPHILS # (AUTO) 34.6 10^3/uL (1.8-7.8); NEUTROPHILS % (AUTO) 94 % (42-75); PLATELET COUNT 217 10^3/uL (130-400)
[2021-10-23 04:54] LABS: ALBUMIN 2.4 GM/DL (3.2-4.5); POTASSIUM 3.3 MMOL/L (3.6-5.0)
[2021-10-23 04:55] LABS: CALCIUM 8.3 MG/DL (8.5-10.1)
[2021-10-23 04:56] LABS: TOTAL PROTEIN 5.9 GM/DL (6.4-8.2)
[2021-10-23 04:58] LABS: BILIRUBIN,TOTAL 0.4 MG/DL (0.1-1.0)
[2021-10-23 05:00] LABS: CREATININE SERUM 1.28 MG/DL (0.60-1.30)
[2021-10-23 05:01] LABS: WHITE BLOOD COUNT 36.8 10^3/uL (4.3-11.0)
[2021-10-23 05:02] LABS: MAGNESIUM 2.5 MG/DL (1.6-2.4)
[2021-10-23] MEDS: MAGNESIUM 1 GM/100 ML IVPB 100 ML IV SCH (05:05)
[2021-10-23] MEDS: KCL 20 MEQ TAB (K-DUR) PO SCH (05:06)
[2021-10-23] MEDS: POTASSIUM CL 10MEQ/50ML IVPB 50 ML IV SCH ×4 (05:07→07:38)
[2021-10-23] MEDS ORDERED: POTASSIUM CL 10MEQ/50ML IVPB 200 ML IV ONE (05:22)
[2021-10-23] MEDS: metroNIDAZOLE 500MG/100ML IVPB 100 ML IV SCH ×3 (05:30→20:01)
[2021-10-23] MEDS: LACTOBACILLUS Acidoph/Bulgar 1 GM (LACTINEX) PACKET PO SCH ×4 (05:31→20:00)
[2021-10-23 06:07] LABS: BAND NEUTROPHILS 3 %; NEUTROPHILS % (MANUAL) 96 %
[2021-10-23 06:08] LABS: MONOCYTES % (MANUAL) 1 %; POLYCHROMASIA SLIGHT; TOXIC GRANULATION/VACUOLAZATIO 1+
[2021-10-23] MEDS: CLOPIDOGREL 75 MG (PLAVIX) TABLET PO SCH (07:38)
[2021-10-23] MEDS: ASPIRIN 81 MG CHEW (CHILDREN'S ASA) PO SCH (07:39)
[2021-10-23] MEDS: ENOXAPARIN 40 MG/0.4 ML (LOVENOX) SYR SC SCH ×2 (07:39→20:00)
[2021-10-23] MEDS: methylPREDNISolone 40 MG/ML (Solu-MEDROL) VIAL IV SCH ×2 (07:39→20:00)
[2021-10-23] MEDS: PANTOPRAZOLE 40 MG (PROTONIX) VIAL IV SCH ×2 (07:39→20:00)
[2021-10-23] MEDS: fentaNYL INJ 100 MCG/2 ML AMP IVP PRN ×4 (07:51→19:58)
--- NOTE | 2021-10-23 08:06 | Tele-ICU Progress Note ---
Progress Note video round completed 71 y/o female with COPD underwent emergent right hemicolectomy for ischemic coloiti Has septic shock. On vent: Ac 16/550/35%/5 Sedated on propofol On Meropenam/mtronidazole and vancomycin PE: sedated on vent Pulse: 90 BP: 99/57 O2 sat 98% WBC: 36.8 Hgb: 9 K: 3.3 being replaced. Glu: 291 on steroids for COPD IMP: septic shock secondary to ischemic colitis. On triple antibiotics PLAN: wean as feasible from vent if hemodynmics improve Focused Exam Lactate Level 10/21/21 14:50: Lactic Acid Level 2.34*H 10/21/21 16:55: Lactic Acid Level 3.14*H 10/22/21 10:10: Lactic Acid Level 1.49 Height, Weight, BMI Height: '" Weight: lbs. oz. kg; 37.33 BMI Method: Laboratory Tests 10/23/21 04:00 Labs Labs Laboratory Tests 10/22/21 10:10: Lactic Acid Level 1.49 10/22/21 12:00: Glucometer 356H 10/22/21 18:10: Glucometer 295H 10/22/21 21:10: Glucometer 330H 10/23/21 00:07: Glucometer 311H 10/23/21 04:00: White Blood Count 36.8*H, Red Blood Count 3.19L, Hemoglobin 9.0L, Hematocrit 27L , Mean Corpuscular Volume 86, Mean Corpuscular Hemoglobin 28, Mean Corpuscular H emoglobin Concent 33, Red Cell Distribution Width 16.3H, Platelet Count 217, Me an Platelet Volume 10.6, Immature Granulocyte % (Auto) 2, Neutrophils (%) (Auto) 94H, Lymphocytes (%) (Auto) 1L, Monocytes (%) (Auto) 3, Eosinophils (%) (Auto) 0, Basophils (%) (Auto) 0, Neutrophils # (Auto) 34.6H, Lymphocytes # (Auto) 0.3L , Monocytes # (Auto) 1.2H, Eosinophils # (Auto) 0.1, Basophils # (Auto) 0.1, Immature Granulocyte # (Auto) 0.6H, Neutrophils % (Manual) 96, Monocytes % (Manual) 1, Band Neutrophils 3, Toxic Granulation 1+, Polychromasia SLIGHT, Sodium Level 129L, Potassium Level 3.3L, Chloride Level 93L, Carbon Dioxide Level 24, Anion Gap 12, Blood Urea Nitrogen 19H, Creatinine 1.28, Estimat Glomerular Filtration Rate 41, BUN/Creatinine Ratio 15, Glucose Level 291H, Calcium Level 8.3L, Corrected Calcium 9.6, Phosphorus Level 3.0, Magnesium Level 2.5H, Total Bilirubin 0.4, Aspartate Amino Transf (AST/SGOT) 20, Alanine Aminotransferase (ALT/SGPT) 10, Alkaline Phosphatase 86, Total Protein 5.9L, Albumin 2.4L Microbiology 10/21/21 MRSA Screen - Final, Complete MRSA not isolated 10/21/21 Blood Culture - Preliminary, Resulted No growth 10/21/21 Urine Culture - Preliminary, Resulted Escherichia coli DENIA SANTAMARIA MD Oct 23, 2021 08:06
[2021-10-23] MEDS ORDERED: TROUGH ORDER-PHARMACY XX ONE ×2 (09:00→11:30)
--- NOTE | 2021-10-23 09:17 | Progress Note - Hospitalist ---
Subjective HPI/CC On Admission Date Seen by Provider: Oct 23, 2021 Time Seen by Provider: 11:00 CC: Respiratory Failure HPI: This is an elderly female clinic pt of with a hx of COPD who continues to smoke who presented to the [facility] ER with altered mental status, was found to have B/L pneumonia with respiratory insufficiency requiring central line and severe sepsis IV fluids with pressor therapy. She was given Meropenem and Vancomycin due to multiple allergies and EICU was given report by [facility] ER. At this current time pt remains stable but high risk for intubation. At time of rounds patient was preparing for emergent surgery due to ischemic bowel suspected and Dr. FERNANDEZ will perform the surgery Subjective/Events-last exam Patient doing much better On a weaning trial and will attempt to extubate White count 36.8 Hemoglobin 9.0 Postop ileus noted Sodium level good at 129 Creatinine 1.28 Daughters at the bedside Review of Systems General: Fatigue, Malaise Focused Exam Lactate Level 10/21/21 14:50: Lactic Acid Level 2.34*H 10/21/21 16:55: Lactic Acid Level 3.14*H 10/22/21 10:10: Lactic Acid Level 1.49 Objective Exam Vital Signs Vital Signs Date Time Temp Pulse Resp B/P (MAP) Pulse Ox O2 Delivery O2 Flow Rate FiO2 10/24/21 06:00 95 18 131/68 93 Nasal Cannula 3.00 10/24/21 02:32 37.0 10/23/21 09:39 35 Capillary Refill : Less Than 3 SecondsLess Than 3 Seconds General Appearance: No Apparent Distress, WD/WN, Chronically ill, Other (intubated) Respiratory: Lungs Clear, Normal Breath Sounds Cardiovascular: Regular Rate, Rhythm Neurologic/Psychiatric: Alert, Oriented x3, No Motor/Sensory Deficits, Normal Mood/Affect Results/Procedures Lab Laboratory Tests 10/24/21 03:40 Patient resulted labs reviewed. Assessment/Plan Assessment and Plan Assess & Plan/Chief Complaint Assessment Sepsis Acute ischemic colitis status post ex lap with resection of terminal ileum and right hemicolon with anastomosis Hyponatremia Hyperglycemia UTI CAD History of [place] Plan Reduce steroids to 40 mg Continue Abx Hold fluids Continue monitoring labs + lactic acid Continue pressors Start PPIs for gastritis prophylaxis Continue following with cardiology Continue following with surgery 10/23/2021: Extubation trial Supportive care Critical Care Ventilator Management Diagnosis/Problems Diagnosis/Problems (1) Acute encephalopathy Status: Acute (2) Pneumonia Status: Acute Qualifiers: Pneumonia type: due to unspecified organism Laterality: bilateral Lung location: unspecified part of lung Qualified Codes: J18.9 - Pneumonia, unspecified organism (3) Lactic acid acidosis Status: Acute (4) UTI (urinary tract infection) Status: Acute Qualifiers: Urinary tract infection type: site unspecified Hematuria presence: without hematuria Qualified Codes: N39.0 - Urinary tract infection, site not specified (5) Respiratory failure Status: Acute Qualifiers: Chronicity: acute Respiratory failure complication: hypoxia Qualified Codes: J96.01 - Acute respiratory failure with hypoxia (6) Hyponatremia Status: Acute DAVEY JARQUIN DO Oct 23, 2021 09:17
--- NOTE | 2021-10-23 10:11 | Anesthesia-General Post-Op ---
General Patient Condition Mental Status/LOC: Same as Preop Cardiovascular: Satisfactory Nausea/Vomiting: Absent Respiratory: Unsatisfactory Pain: Controlled Complications: Absent Post Op Complications Complications None Follow Up Care/Instructions Patient Instructions None needed. Anesthesia/Patient Condition Patient Condition Sedation is off, pt may be extubated this morning pending ABG. Will f/u [place] [facility] [place]: NATHAN Davison CRNA Oct 23, 2021 10:11
[2021-10-23 10:45] LABS: ABG BASE EXCESS 2.5 MMOL/L (-2.5-2.5); ABG OXYGEN SATURATION 91 % (94-100); ABG PCO2 39 MMHG (35-45); ABG PH 7.44 (7.37-7.43); ABG PO2 62 MMHG (79-93); ABG TCO2 27.5 MMOL/L (21.0-31.0)
[2021-10-23 10:48] LABS: ALLENS TEST YES-POS; INSPIRED O2 35%; PATIENT TEMP 37.2; VENTILATOR YES
--- NOTE | 2021-10-23 11:15 | Progress Note - Cardiology ---
Cardiology SOAP Progress Note Subjective: Intubated and on mech vent, but is responsive No cp or palp or syncope No symptoms indicated One daughter is by bedside Objective: I&O/Vital Signs 10/22/21 10/22/21 10/22/21 10/22/21 23:11 23:15 23:30 23:45 Pulse 96 96 95 Resp 16 16 16 B/P (MAP) 111/58 117/57 119/55 Pulse Ox 97 98 98 O2 Delivery Mechanical Ventilator O2 Flow Rate 40.00 10/23/21 10/23/21 10/23/21 10/23/21 00:00 00:15 00:27 00:30 Pulse 96 95 93 Resp 15 16 16 B/P (MAP) 120/58 120/58 121/58 Pulse Ox 98 99 96 98 O2 Delivery Mechanical Ventilator Mechanical Ventilator O2 Flow Rate 40.00 FiO2 40 10/23/21 10/23/21 10/23/21 10/23/21 00:45 01:00 01:00 01:15 Pulse 95 95 95 Resp 16 16 B/P (MAP) 121/59 108/51 107/53 Pulse Ox 99 98 O2 Delivery Mechanical Ventilator O2 Flow Rate 40.00 10/23/21 10/23/21 10/23/21 10/23/21 01:30 01:45 02:00 02:01 Pulse 93 99 98 68 Resp 16 19 16 B/P (MAP) 106/54 115/64 111/55 Pulse Ox 99 99 97 O2 Delivery Mechanical Ventilator O2 Flow Rate 40.00 10/23/21 10/23/21 10/23/21 10/23/21 02:05 02:15 02:20 02:30 Temp 36.9 Pulse 96 96 Resp 16 18 B/P (MAP) 111/55 103/55 Pulse Ox 97 98 O2 Delivery Mechanical Ventilator O2 Flow Rate 40.00 FiO2 40 10/23/21 10/23/21 10/23/21 10/23/21 02:45 03:00 03:00 03:15 Pulse 94 95 Resp 16 16 B/P (MAP) 101/52 108/53 108/53 Pulse Ox 97 97 O2 Delivery Mechanical Ventilator Mechanical Ventilator O2 Flow Rate 40.00 40.00 10/23/21 10/23/21 10/23/21 10/23/21 03:30 03:45 04:00 04:01 Pulse 94 93 Resp 15 16 B/P (MAP) 106/51 107/56 131/89 Pulse Ox 97 97 97 O2 Delivery Mechanical Ventilator Mechanical Ventilator O2 Flow Rate 40.00 FiO2 40 10/23/21 10/23/21 10/23/21 10/23/21 04:15 04:30 04:45 05:00 Pulse 93 95 93 Resp 12 15 15 B/P (MAP) 131/89 116/59 122/60 119/58 Pulse Ox 96 97 97 O2 Delivery Mechanical Ventilator O2 Flow Rate 40.00 10/23/21 10/23/21 10/23/21 10/23/21 05:15 05:30 05:30 05:45 Pulse 89 94 79 89 Resp 17 16 13 B/P (MAP) 119/58 126/61 135/65 Pulse Ox 97 98 98 10/23/21 10/23/21 10/23/21 10/23/21 06:00 06:15 06:37 06:39 Pulse 97 91 Resp 15 16 B/P (MAP) 123/59 125/61 Pulse Ox 98 99 O2 Delivery Mechanical Ventilator Mechanical Ventilator O2 Flow Rate 40.00 35.00 FiO2 35 10/23/21 10/23/21 10/23/21 10/23/21 07:00 07:00 07:36 08:00 Pulse 96 96 95 94 Resp 16 15 B/P (MAP) 116/58 108/56 105/56 Pulse Ox 98 98 O2 Delivery Mechanical Ventilator Mechanical Ventilator O2 Flow Rate 35.00 35.00 10/23/21 10/23/21 10/23/21 10/23/21 08:00 09:00 09:22 09:39 Pulse 92 96 Resp 16 18 B/P (MAP) 109/57 107/54 Pulse Ox 95 94 95 O2 Delivery Mechanical Ventilator Mechanical Ventilator O2 Flow Rate 35.00 FiO2 35 35 10/23/21 00:00 Intake Total 300 ml Output Total 1090 ml Balance -790 ml Constitutional: other (on mech vent but responsive toay) Respiratory: No accessory muscle use, No respiratory distress; chest expansion is symmetric, chest is bilaterally symmetric, rhonchi (scattered), other (coarse breathsounds throughout) Cardiovascular: regular rate-rhythm; No JVD; S1 and S2 Gastrointestional: other (post-op) Extremities: other (mod bilat LE swelling) Neurologic/Psychiatric: other (seems to be able to move all limbs equally) Skin: other (multiple abrasions and dressings to arms/hands bilat; multiple skin tears, bruises and abrasions to legs bilat) Results/Procedures: Labs Laboratory Tests 10/22/21 12:00: Glucometer 356H 10/22/21 18:10: Glucometer 295H 10/22/21 21:10: Glucometer 330H 10/23/21 00:07: Glucometer 311H 10/23/21 04:00: White Blood Count 36.8*H, Red Blood Count 3.19L, Hemoglobin 9.0L, Hematocrit 27L , Mean Corpuscular Volume 86, Mean Corpuscular Hemoglobin 28, Mean Corpuscular Hemoglobin Concent 33, Red Cell Distribution Width 16.3H, Platelet Count 217, Mean Platelet Volume 10.6, Immature Granulocyte % (Auto) 2, Neutrophils (%) (Auto) 94H, Lymphocytes (%) (Auto) 1L, Monocytes (%) (Auto) 3, Eosinophils (%) (Auto) 0, Basophils (%) (Auto) 0, Neutrophils # (Auto) 34.6H, Lymphocytes # (Auto) 0.3L, Monocytes # (Auto) 1.2H, Eosinophils # (Auto) 0.1, Basophils # (Auto) 0.1, Immature Granulocyte # (Auto) 0.6H, Neutrophils % (Manual) 96, Monocytes % (Manual) 1, Band Neutrophils 3, Toxic Granulation 1+, Polychromasia SLIGHT, Sodium Level 129L, Potassium Level 3.3L, Chloride Level 93L, Carbon Dioxide Level 24, Anion Gap 12, Blood Urea Nitrogen 19H, Creatinine 1.28, Estimat Glomerular Filtration Rate 41, BUN/Creatinine Ratio 15, Glucose Level 291H, Calcium Level 8.3L, Corrected Calcium 9.6, Phosphorus Level 3.0, Magnesium Level 2.5H, Total Bilirubin 0.4, Aspartate Amino Transf (AST/SGOT) 20, Alanine Aminotransferase (ALT/SGPT) 10, Alkaline Phosphatase 86, Total Protein 5.9L, Albumin 2.4L 10/23/21 09:45: Vancomycin Level Trough 22.6H 10/23/21 10:36: Blood Gas Puncture Site LT RAD, Blood Gas Patient Temperature 37.2, Arterial Blood pH 7.44H, Arterial Blood Partial Pressure CO2 39, Arterial Blood Partial Pressure O2 62L, Arterial Blood HCO3 26, Arterial Blood Total CO2 27.5, Arterial Blood Oxygen Saturation 91L, Arterial Blood Base Excess 2.5, Gonzalo Test YES-POS, Blood Gas Ventilator Setting YES, Blood Gas Inspired Oxygen 35% Microbiology 10/21/21 MRSA Screen - Final, Complete MRSA not isolated 10/21/21 Blood Culture - Preliminary, Resulted No growth 10/21/21 Urine Culture - Preliminary, Resulted Escherichia coli Laboratory Tests 10/21/21 23:45 10/22/21 04:50 10/23/21 04:00 A/P: Assessment: Sepsis (preop) - s/p exploratory laparotomy, right hemicolectomy, ileal resection(100cm) with ileocolonic anastamosis on 10/22/21 - continuing post-op resp failure CAD - reports follows with cardiology at [facility] in [place] and has had cardiac stents placed in June 2021 Acute on chronic exacerbation of COPD H/o CHF - Echo on 10/22/21: LVEF 55-60%, dilated RA DM 2 HTN HLD H/o frequent falls H/o frequent UTI's Plan: Complex management due to multiple comorbidities ASA and Plavix resumed Monitor labs MIRTA AL MD FACP FAC CCDS Oct 23, 2021 11:15
[2021-10-23] MEDS: VANCOMYCIN INJECTION 1,250 MG in NS (IVPB) 250 ML IV SCH (13:36)
[2021-10-23] MEDS: LACTATED RINGERS 1,000 ML IV SCH (13:45)
--- NOTE | 2021-10-23 15:41 | Progress Note - Surgery ---
Subjective Time Seen by a Provider: 08:57 Subjective/Events-last exam Pt seen and examined, she was intubated and mostly sedated. Was arousable to voice and could follow some commands. Review of Systems pt unable to answer she is ventilated Focused Exam Lactate Level 10/21/21 14:50: Lactic Acid Level 2.34*H 10/21/21 16:55: Lactic Acid Level 3.14*H 10/22/21 10:10: Lactic Acid Level 1.49 Objective Exam Vital Signs Date Time Temp Pulse Resp B/P (MAP) Pulse Ox O2 Delivery O2 Flow Rate FiO2 10/23/21 14:39 88 Nasal Cannula 2.00 10/23/21 13:00 99 10/23/21 12:00 90 Nasal Cannula 4.00 10/23/21 11:10 Nasal Cannula 2.00 10/23/21 09:39 96 18 95 35 10/23/21 09:22 107/54 10/23/21 09:00 92 16 109/57 94 Mechanical Ventilator 35.00 10/23/21 08:00 95 Mechanical Ventilator 35 10/23/21 08:00 94 15 105/56 98 Mechanical Ventilator 35.00 10/23/21 07:36 95 108/56 10/23/21 07:00 96 10/23/21 07:00 96 16 116/58 98 Mechanical Ventilator 35.00 10/23/21 06:39 Mechanical Ventilator 35.00 10/23/21 06:37 91 16 99 35 10/23/21 06:15 125/61 10/23/21 06:00 97 15 123/59 98 Mechanical Ventilator 40.00 10/23/21 05:45 89 13 135/65 98 10/23/21 05:30 79 10/23/21 05:30 94 16 126/61 98 10/23/21 05:15 89 17 119/58 97 10/23/21 05:00 93 15 119/58 97 Mechanical Ventilator 40.00 10/23/21 04:45 122/60 10/23/21 04:30 95 15 116/59 97 10/23/21 04:15 93 12 131/89 96 10/23/21 04:01 97 Mechanical Ventilator 40 10/23/21 04:00 93 16 131/89 97 Mechanical Ventilator 40.00 10/23/21 03:45 94 15 107/56 97 10/23/21 03:30 106/51 10/23/21 03:15 95 16 108/53 97 10/23/21 03:00 94 16 108/53 97 Mechanical Ventilator 40.00 10/23/21 03:00 Mechanical Ventilator 40.00 10/23/21 02:45 101/52 10/23/21 02:30 103/55 10/23/21 02:20 96 18 98 40 10/23/21 02:15 96 16 111/55 97 10/23/21 02:05 36.9 Mechanical Ventilator 40.00 10/23/21 02:01 68 10/23/21 02:00 98 16 111/55 97 Mechanical Ventilator 40.00 10/23/21 01:45 99 19 115/64 99 10/23/21 01:30 93 16 106/54 99 10/23/21 01:15 107/53 10/23/21 01:00 95 16 108/51 98 Mechanical Ventilator 40.00 10/23/21 01:00 95 10/23/21 00:45 95 16 121/59 99 10/23/21 00:30 93 16 121/58 98 10/23/21 00:27 96 Mechanical Ventilator 40 10/23/21 00:15 95 16 120/58 99 10/23/21 00:00 96 15 120/58 98 Mechanical Ventilator 40.00 10/22/21 23:45 95 16 119/55 98 10/22/21 23:30 96 16 117/57 98 10/22/21 23:15 96 16 111/58 97 10/22/21 23:11 Mechanical Ventilator 40.00 10/22/21 23:00 98 16 111/58 97 Mechanical Ventilator 40.00 10/22/21 22:45 101 17 132/63 95 10/22/21 22:27 37.6 10/22/21 22:15 98 13 109/56 96 10/22/21 22:09 79 10/22/21 22:00 96 18 109/56 98 Mechanical Ventilator 40.00 10/22/21 21:57 96 17 98 40 10/22/21 21:45 89 16 110/49 98 10/22/21 21:30 93 16 116/49 98 10/22/21 21:15 89 15 105/45 99 10/22/21 21:00 93 17 105/45 98 Mechanical Ventilator 40.00 10/22/21 20:46 37.2 10/22/21 20:45 95 16 98/45 97 10/22/21 20:30 98 17 103/48 96 10/22/21 20:24 99 19 124/53 97 10/22/21 20:15 101 21 97 10/22/21 20:11 102 23 132/59 96 10/22/21 20:00 98 16 124/53 96 Mechanical Ventilator 40.00 10/22/21 20:00 94 Mechanical Ventilator 40 10/22/21 19:45 93 0 96 10/22/21 19:30 98 15 124/58 97 10/22/21 19:15 98 17 97 10/22/21 19:10 95 19 96 40 10/22/21 19:09 95 138/68 10/22/21 19:00 36.6 16 Mechanical Ventilator 40.00 10/22/21 19:00 95 16 138/68 97 Mechanical Ventilator 40.00 10/22/21 19:00 95 10/22/21 18:00 93 0 130/61 96 10/22/21 17:45 93 0 96 10/22/21 17:30 93 0 128/61 96 Mechanical Ventilator 40.00 10/22/21 17:15 92 0 96 Mechanical Ventilator 40.00 10/22/21 17:00 93 0 126/58 96 Mechanical Ventilator 40.00 10/22/21 16:45 93 0 96 Mechanical Ventilator 40.00 10/22/21 16:30 94 0 122/59 96 Mechanical Ventilator 40.00 10/22/21 16:15 93 13 96 Mechanical Ventilator 40.00 10/22/21 16:15 93 13 96 10/22/21 16:15 93 13 96 10/22/21 16:03 36.8 10/22/21 16:00 96 0 145/67 96 Mechanical Ventilator 40.00 10/22/21 16:00 96 0 145/67 96 Mechanical Ventilator 10/22/21 16:00 96 0 145/67 96 10/22/21 15:45 93 0 96 Mechanical Ventilator 40.00 I & O 10/23/21 07:00 Intake Total 910 ml Output Total 2660 ml Balance -1750 ml Capillary Refill : Less Than 3 SecondsLess Than 3 Seconds General Appearance: No Apparent Distress, Chronically ill, Obese HEENT: PERRL/EOMI, Other (ET tube in place) Respiratory: Decreased Breath Sounds, Other (ventilated and sedated) Cardiovascular: Regular Rate, Rhythm, No Murmur Gastrointestinal: soft, tenderness, other (wound clean/dry, serosanguinous fluid in DEIRDRE with more blood than would expect after surgery but she is on Lovenox) Extremity: Pedal Edema Neurologic/Psychiatric: Other (patient sedated and intubated) Results Lab Laboratory Tests 10/22/21 18:10: Glucometer 295H 10/22/21 21:10: Glucometer 330H 10/23/21 00:07: Glucometer 311H 10/23/21 04:00: White Blood Count 36.8*H, Red Blood Count 3.19L, Hemoglobin 9.0L, Hematocrit 27L , Mean Corpuscular Volume 86, Mean Corpuscular Hemoglobin 28, Mean Corpuscular Hemoglobin Concent 33, Red Cell Distribution Width 16.3H, Platelet Count 217, Mean Platelet Volume 10.6, Immature Granulocyte % (Auto) 2, Neutrophils (%) (Auto) 94H, Lymphocytes (%) (Auto) 1L, Monocytes (%) (Auto) 3, Eosinophils (%) (Auto) 0, Basophils (%) (Auto) 0, Neutrophils # (Auto) 34.6H, Lymphocytes # (Auto) 0.3L, Monocytes # (Auto) 1.2H, Eosinophils # (Auto) 0.1, Basophils # (Auto) 0.1, Immature Granulocyte # (Auto) 0.6H, Neutrophils % (Manual) 96, Monocytes % (Manual) 1, Band Neutrophils 3, Toxic Granulation 1+, Polychromasia SLIGHT, Sodium Level 129L, Potassium Level 3.3L, Chloride Level 93L, Carbon Dioxide Level 24, Anion Gap 12, Blood Urea Nitrogen 19H, Creatinine 1.28, Estimat Glomerular Filtration Rate 41, BUN/Creatinine Ratio 15, Glucose Level 291H, Calcium Level 8.3L, Corrected Calcium 9.6, Phosphorus Level 3.0, Magnesium Level 2.5H, Total Bilirubin 0.4, Aspartate Amino Transf (AST/SGOT) 20, Alanine Aminotransferase (ALT/SGPT) 10, Alkaline Phosphatase 86, Total Protein 5.9L, Albumin 2.4L 10/23/21 09:45: Vancomycin Level Trough 22.6H 10/23/21 10:36: Blood Gas Puncture Site LT RAD, Blood Gas Patient Temperature 37.2, Arterial Blood pH 7.44H, Arterial Blood Partial Pressure CO2 39, Arterial Blood Partial Pressure O2 62L, Arterial Blood HCO3 26, Arterial Blood Total CO2 27.5, Arterial Blood Oxygen Saturation 91L, Arterial Blood Base Excess 2.5, Gonzalo Test YES-POS, Blood Gas Ventilator Setting YES, Blood Gas Inspired Oxygen 35% 10/23/21 11:08: Glucometer 293H Microbiology 10/21/21 MRSA Screen - Final, Complete MRSA not isolated 10/21/21 Blood Culture - Preliminary, Resulted No growth 10/21/21 Urine Culture - Final, Complete Escherichia coli Assessment/Plan Assessment/Plan Assessment/Plan Bowel Ischemia Respiratory Failure Leukocytosis Hyponatremia Hypokalemia DM, HTN, MO I ordered weaning parameters and trial off vent to see if we could extubate her. I am unsure why her WBC jumped up so high. S/P Ex Lap with SBR and RHC. Continue IV ABX, Replace electrolytes, check labs and may need to stop lovenox because of bleeding. Monitor abdominal exam and check CXR to search for reason of increased WBC. SUELLEN GRACIA DO Oct 23, 2021 15:41
[2021-10-24] MEDS: RT-ALBUTEROL/IPRATROPIUM 3 ML (DUONEB) VIAL INH SCH ×4 (02:25→20:53)
[2021-10-24] MEDS: fentaNYL INJ 100 MCG/2 ML AMP IVP PRN ×5 (02:32→16:38)
[2021-10-24 03:48] LABS: BASOPHILS # (AUTO) 0.1 10^3/uL (0.0-0.1); BASOPHILS % (AUTO) 0 % (0-10); EOSINOPHILS % (AUTO) 0 % (0-10); HEMATOCRIT 27 % (35-52); HEMOGLOBIN 8.7 g/dL (11.5-16.0); LYMPHOCYTES # (AUTO) 0.4 10^3/uL (1.0-4.0); LYMPHOCYTES % (AUTO) 1 % (12-44); MEAN CORPUSCULAR HEMOGLOBIN 28 pg (25-34); MEAN CORPUSCULAR HGB CONC 32 g/dL (32-36); MEAN CORPUSCULAR VOLUME 87 fL (80-99); MEAN PLATELET VOLUME 10.5 fL (9.0-12.2); MONOCYTES # (AUTO) 0.9 10^3/uL (0.0-1.0); MONOCYTES % (AUTO) 3 % (0-12); NEUTROPHILS # (AUTO) 31.6 10^3/uL (1.8-7.8); NEUTROPHILS % (AUTO) 94 % (42-75); PLATELET COUNT 189 10^3/uL (130-400)
[2021-10-24 03:58] LABS: WHITE BLOOD COUNT 33.6 10^3/uL (4.3-11.0)
[2021-10-24 04:01] LABS: ALBUMIN 2.6 GM/DL (3.2-4.5); POTASSIUM 4.2 MMOL/L (3.6-5.0)
[2021-10-24 04:03] LABS: CALCIUM 8.5 MG/DL (8.5-10.1)
[2021-10-24 04:04] LABS: TOTAL PROTEIN 6.2 GM/DL (6.4-8.2)
[2021-10-24 04:05] LABS: BILIRUBIN,TOTAL 0.4 MG/DL (0.1-1.0)
[2021-10-24 04:07] LABS: CREATININE SERUM 1.17 MG/DL (0.60-1.30)
[2021-10-24 04:10] LABS: MAGNESIUM 2.5 MG/DL (1.6-2.4)
[2021-10-24] MEDS: MAGNESIUM 1 GM/100 ML IVPB 100 ML IV SCH (04:26)
[2021-10-24] MEDS: POTASSIUM CL 10MEQ/50ML IVPB 50 ML IV SCH (04:26)
[2021-10-24] MEDS: KCL 20 MEQ TAB (K-DUR) PO SCH (04:26)
[2021-10-24] MEDS: metroNIDAZOLE 500MG/100ML IVPB 100 ML IV SCH ×3 (05:30→21:25)
[2021-10-24] MEDS: inSUlin ASPART (NovoLOG) 1 UNIT/0.01 ML (CHARGE PER UNIT) SC SCH ×4 (05:30→23:37)
[2021-10-24] MEDS: LACTOBACILLUS Acidoph/Bulgar 1 GM (LACTINEX) PACKET PO SCH ×4 (05:30→20:32)
[2021-10-24] MEDS: MEROPENEM 500 MG in NS (IVPB) 100 ML IV SCH ×4 (05:31→23:38)
[2021-10-24] MEDS: CLOPIDOGREL 75 MG (PLAVIX) TABLET PO SCH ×2 (09:00→09:32)
[2021-10-24] MEDS: ENOXAPARIN 40 MG/0.4 ML (LOVENOX) SYR SC SCH ×3 (09:00→19:26)
[2021-10-24] MEDS: ASPIRIN 81 MG CHEW (CHILDREN'S ASA) PO SCH ×2 (09:00→09:33)
--- NOTE | 2021-10-24 09:29 | Progress Note - Surgery ---
ANGELA SHAFFER MED STUDENT 10/24/21 0929: Subjective Date Seen by a Provider: Oct 24, 2021 Time Seen by a Provider: 08:30 Subjective/Events-last exam This is Raul a 71 yo female with the chief complaint of septic shock, respiratory failure, and pneumonia. Pt was taken off the ventilator yesterday. Upon entering the room she was sitting up in bed playing on her phone. Pt was calm, cooperative, and engaged during questioning. She was alert and oriented x3. She stated that she was awake all night and hasn't felt tired. She has been sipping on water and eating ice chips but states that she is yet to be hungry. She is experiencing epigastric pain at surgical site and put the pain at an 8/10. Review of Systems General: No Fatigue (Pt states that she was awake all night), No Appetite (loss of appetite) Gastrointestinal: Abdominal Pain (8/10 surrounding surgical site ) Focused Exam Lactate Level 10/21/21 14:50: Lactic Acid Level 2.34*H 10/21/21 16:55: Lactic Acid Level 3.14*H 10/22/21 10:10: Lactic Acid Level 1.49 Time of Focused Exam: 08:30 Respiratory: Chest Non Tender, Lungs Clear, Normal Breath Sounds, No Accessory Muscle Use, No Respiratory Distress Cardiovascular: Regular Rate, Rhythm, No Gallop, No Murmur, Normal Peripheral Pulses Skin: normal color, warm/dry Objective Exam Vital Signs Date Time Temp Pulse Resp B/P (MAP) Pulse Ox O2 Delivery O2 Flow Rate FiO2 10/24/21 08:00 36.7 10/24/21 06:53 Nasal Cannula 2.00 10/24/21 06:51 99 Nasal Cannula 3.00 10/24/21 06:00 95 18 131/68 93 Nasal Cannula 3.00 10/24/21 05:00 95 19 118/58 91 Nasal Cannula 3.00 10/24/21 04:00 93 14 102/56 92 Nasal Cannula 3.00 10/24/21 03:51 90 Nasal Cannula 3.00 10/24/21 03:50 Nasal Cannula 3.00 10/24/21 03:00 96 19 124/69 91 Nasal Cannula 2.00 10/24/21 02:32 37.0 Nasal Cannula 2.00 10/24/21 02:25 94 Nasal Cannula 3.00 10/24/21 02:00 92 12 113/55 93 Nasal Cannula 3.00 10/24/21 01:00 100 10/24/21 01:00 94 17 126/55 94 Nasal Cannula 3.00 10/24/21 00:00 92 15 121/57 93 Nasal Cannula 3.00 10/23/21 23:46 92 Nasal Cannula 3.00 10/23/21 23:00 36.8 Nasal Cannula 3.00 10/23/21 22:00 89 16 137/72 98 Nasal Cannula 3.00 10/23/21 21:55 94 Nasal Cannula 3.00 10/23/21 21:00 88 15 118/51 94 Nasal Cannula 3.00 10/23/21 20:18 94 Nasal Cannula 4.00 10/23/21 20:00 36.6 10/23/21 20:00 93 18 117/57 95 Nasal Cannula 3.00 10/23/21 19:00 96 24 103/59 96 Nasal Cannula 3.00 10/23/21 19:00 Nasal Cannula 3.00 10/23/21 19:00 95 10/23/21 18:20 94 Nasal Cannula 3.00 10/23/21 18:00 93 17 110/49 98 Nasal Cannula 2.00 10/23/21 17:00 96 15 120/48 98 Nasal Cannula 2.00 10/23/21 16:34 36.8 10/23/21 16:00 90 Nasal Cannula 4.00 10/23/21 16:00 92 10 134/70 95 Nasal Cannula 2.00 10/23/21 15:00 92 16 101/64 90 Nasal Cannula 2.00 10/23/21 14:39 88 Nasal Cannula 2.00 10/23/21 14:00 98 11 97/60 80 Nasal Cannula 2.00 10/23/21 13:00 99 22 126/67 98 Nasal Cannula 2.00 10/23/21 13:00 100 10/23/21 12:00 90 Nasal Cannula 4.00 10/23/21 12:00 101 17 94 Nasal Cannula 2.00 10/23/21 11:10 Nasal Cannula 2.00 10/23/21 11:00 98 21 135/83 93 Mechanical Ventilator 35.00 10/23/21 10:00 101 36 93 Mechanical Ventilator 35.00 10/23/21 09:39 96 18 95 35 I & O 10/24/21 07:00 Intake Total 700 ml Output Total 975 ml Balance -275 ml Capillary Refill : Less Than 3 SecondsLess Than 3 Seconds General Appearance: No Apparent Distress, WD/WN, Chronically ill HEENT: PERRL/EOMI, Pharynx Normal Neck: Normal Inspection, Non Tender, Supple Respiratory: Chest Non Tender, Lungs Clear, Normal Breath Sounds, No Accessory Muscle Use, No Respiratory Distress Cardiovascular: Regular Rate, Rhythm, No Gallop, No Murmur, Normal Peripheral Pulses Gastrointestinal: soft, tenderness (epigastric pain to palpation around surgical site), other (wound clean/dry, serosanguinous fluid in DEIRDRE with more blood than would expect after surgery but she is on Lovenox) Extremity: Pedal Edema (minimal edema bilaterally ) Neurologic/Psychiatric: Alert, Oriented x3, No Motor/Sensory Deficits, Normal Mood/Affect Skin: Normal Color, Warm/Dry, Other (DEIRDRE drain present) Lymphatic: No Adenopathy (cervical and supraclavicular) Results Lab Laboratory Tests 10/23/21 09:45: Vancomycin Level Trough 22.6H 10/23/21 10:36: Blood Gas Puncture Site LT RAD, Blood Gas Patient Temperature 37.2, Arterial Blood pH 7.44H, Arterial Blood Partial Pressure CO2 39, Arterial Blood Partial Pressure O2 62L, Arterial Blood HCO3 26, Arterial Blood Total CO2 27.5, Arterial Blood Oxygen Saturation 91L, Arterial Blood Base Excess 2.5, Gonzalo Test YES-POS, Blood Gas Ventilator Setting YES, Blood Gas Inspired Oxygen 35% 10/23/21 11:08: Glucometer 293H 10/23/21 17:24: Glucometer 201H 10/23/21 23:33: Glucometer 192H 10/24/21 03:40: White Blood Count 33.6*H, Red Blood Count 3.09L, Hemoglobin 8.7L, Hematocrit 27L , Mean Corpuscular Volume 87, Mean Corpuscular Hemoglobin 28, Mean Corpuscular Hemoglobin Concent 32, Red Cell Distribution Width 16.7H, Platelet Count 189, Mean Platelet Volume 10.5, Immature Granulocyte % (Auto) 2, Neutrophils (%) (Auto) 94H, Lymphocytes (%) (Auto) 1L, Monocytes (%) (Auto) 3, Eosinophils (%) (Auto) 0, Basophils (%) (Auto) 0, Neutrophils # (Auto) 31.6H, Lymphocytes # (Auto) 0.4L, Monocytes # (Auto) 0.9, Eosinophils # (Auto) 0.0, Basophils # ( Auto) 0.1, Immature Granulocyte # (Auto) 0.7H, Sodium Level 131L, Potassium Level 4.2, Chloride Level 95L, Carbon Dioxide Level 22, Anion Gap 14, Blood Urea Nitrogen 24H, Creatinine 1.17, Estimat Glomerular Filtration Rate 46, BUN/Creatinine Ratio 21, Glucose Level 196H, Calcium Level 8.5, Corrected Calcium 9.6, Phosphorus Level 3.0, Magnesium Level 2.5H, Total Bilirubin 0.4, Aspartate Amino Transf (AST/SGOT) 20, Alanine Aminotransferase (ALT/SGPT) 13, Alkaline Phosphatase 82, Total Protein 6.2L, Albumin 2.6L, Triglycerides Level 156H Microbiology 10/21/21 MRSA Screen - Final, Complete MRSA not isolated 10/21/21 Blood Culture - Preliminary, Resulted No growth 10/21/21 Urine Culture - Final, Complete Escherichia coli Assessment/Plan Assessment/Plan Assessment/Plan Assessment: Bowel Ischemia Respiratory Failure Leukocytosis- WBC of 33.6 on 10/24, down from 36.8 anemia- Hgb of 8.7 on 10/24, down from 9.0 DM HTN epigastric abdominal pain DEIRDRE drain continues to contain bloody serous fluid Plan: S/P Ex Lap with SBR and RHC continue pain medication Continue IV ABX Replace electrolytes Monitor abdominal exam and check CXR to search for reason of increased WBC. SUELLEN GRACIA DO 10/24/21 1634: Subjective Time Seen by a Provider: 12:29 Subjective/Events-last exam Pt seen and examined, states abdominal pain is better and she is not really hungry. Review of Systems General: Fatigue (Pt states that she was awake all night), Appetite (loss of appetite) Pulmonary: No Dyspnea, No Cough Cardiovascular: No: Chest Pain, Palpitations Gastrointestinal: Abdominal Pain (8/10 surrounding surgical site ); No: Nausea, Vomiting Objective Exam General Appearance: No Apparent Distress, Chronically ill HEENT: PERRL/EOMI Respiratory: Lungs Clear, Normal Breath Sounds, No Accessory Muscle Use, No Respiratory Distress Cardiovascular: Regular Rate, Rhythm, No Murmur Gastrointestinal: soft, tenderness (epigastric pain to palpation around surgical site), other (wound clean/dry, serosanguinous fluid in DEIRDRE with more blood than would expect after surgery but she is on Lovenox) Extremity: Pedal Edema (minimal edema bilaterally ) Assessment/Plan Assessment/Plan Assessment/Plan Respiratory Failure Bowel Ischemia Leukocytosis- WBC of 33.6 on 10/24, down from 36.8 anemia- Hgb of 8.7 on 10/24, down from 9.0 DM HTN epigastric abdominal pain DEIRDRE drain continues to contain bloody serous fluid Plan: S/P Ex Lap with SBR and RHC continue pain medication, hold lovenox and plavix Continue IV ABX Replace electrolytes Monitor abdominal exam, ??CXR to search for reason of increased WBC. Supervisory-Addendum Brief Verification & Attestation Participated in pt care: history, MDM, physical Personally performed: exam, history, MDM, supervision of care Care discussed with: Medical Student Procedures: n/a Verification and Attestation of Medical Student E/M Service A medical student performed and documented this service. I then reviewed and verified all information documented by the medical student and made modifications to such information, when appropriate. I personally performed a physical exam, medical decision making and then discussed any differences between the notes and made revisions as necessary to create one note. Suellen Gracia , 10/24/21 , 16:34 ANGELA SHAFFER MED STUDENT Oct 24, 2021 09:29 SUELLEN GRACIA DO Oct 24, 2021 16:34
[2021-10-24] MEDS: PANTOPRAZOLE 40 MG (PROTONIX) VIAL IV SCH ×2 (09:33→20:32)
[2021-10-24] MEDS: methylPREDNISolone 40 MG/ML (Solu-MEDROL) VIAL IV SCH (09:33)
--- NOTE | 2021-10-24 10:43 | Tele-ICU Progress Note ---
Subjective Date Seen by a Provider: Oct 24, 2021 Time Seen by a Provider: 10:05 Subjective/Events-last exam Patient was extubated yesterday and tolerating oxygenation with nasal cannula. She states her abdominal pain is slowly improving. No nausea or vomiting. She does not have any NG tube. I have made a video visit and discussed with the patient and she appreciated the progressive improvement. Discussed with CLINICAL EVALUATOR also. Review of Systems ROS PER ATTENDING PHYSICIAN. Sepsis Event Evaluation Height, Weight, BMI Height: '" Weight: lbs. oz. kg; 37.33 BMI Method: Focused Exam Lactate Level 10/21/21 14:50: Lactic Acid Level 2.34*H 10/21/21 16:55: Lactic Acid Level 3.14*H 10/22/21 10:10: Lactic Acid Level 1.49 Time of Focused Exam: 08:30 Exam Exam Patient acknowledged, consented, and participated in this virtual visit which was conducted using real time audio/video Vital Signs Date Time Temp Pulse Resp B/P (MAP) Pulse Ox O2 Delivery O2 Flow Rate FiO2 10/24/21 10:34 96 Nasal Cannula 3.00 10/24/21 08:00 94 Nasal Cannula 2.00 10/24/21 08:00 36.7 10/24/21 06:53 Nasal Cannula 2.00 10/24/21 06:51 99 Nasal Cannula 3.00 10/24/21 06:00 95 18 131/68 93 Nasal Cannula 3.00 10/24/21 05:00 95 19 118/58 91 Nasal Cannula 3.00 10/24/21 04:00 93 14 102/56 92 Nasal Cannula 3.00 10/24/21 03:51 90 Nasal Cannula 3.00 10/24/21 03:50 Nasal Cannula 3.00 10/24/21 03:00 96 19 124/69 91 Nasal Cannula 2.00 10/24/21 02:32 37.0 Nasal Cannula 2.00 10/24/21 02:25 94 Nasal Cannula 3.00 10/24/21 02:00 92 12 113/55 93 Nasal Cannula 3.00 10/24/21 01:00 100 10/24/21 01:00 94 17 126/55 94 Nasal Cannula 3.00 10/24/21 00:00 92 15 121/57 93 Nasal Cannula 3.00 10/23/21 23:46 92 Nasal Cannula 3.00 10/23/21 23:00 36.8 Nasal Cannula 3.00 10/23/21 22:00 89 16 137/72 98 Nasal Cannula 3.00 10/23/21 21:55 94 Nasal Cannula 3.00 10/23/21 21:00 88 15 118/51 94 Nasal Cannula 3.00 10/23/21 20:18 94 Nasal Cannula 4.00 10/23/21 20:00 36.6 10/23/21 20:00 93 18 117/57 95 Nasal Cannula 3.00 10/23/21 19:00 96 24 103/59 96 Nasal Cannula 3.00 10/23/21 19:00 Nasal Cannula 3.00 10/23/21 19:00 95 10/23/21 18:20 94 Nasal Cannula 3.00 10/23/21 18:00 93 17 110/49 98 Nasal Cannula 2.00 10/23/21 17:00 96 15 120/48 98 Nasal Cannula 2.00 10/23/21 16:34 36.8 10/23/21 16:00 90 Nasal Cannula 4.00 10/23/21 16:00 92 10 134/70 95 Nasal Cannula 2.00 10/23/21 15:00 92 16 101/64 90 Nasal Cannula 2.00 10/23/21 14:39 88 Nasal Cannula 2.00 10/23/21 14:00 98 11 97/60 80 Nasal Cannula 2.00 10/23/21 13:00 99 22 126/67 98 Nasal Cannula 2.00 10/23/21 13:00 100 10/23/21 12:00 90 Nasal Cannula 4.00 10/23/21 12:00 101 17 94 Nasal Cannula 2.00 10/23/21 11:10 Nasal Cannula 2.00 10/23/21 11:00 98 21 135/83 93 Mechanical Ventilator 35.00 I & O 10/24/21 07:00 Intake Total 700 ml Output Total 975 ml Balance -275 ml Height & Weight Height: '" Weight: lbs. oz. kg; 37.33 BMI Method: General Appearance: No Apparent Distress, WD/WN, Chronically ill HEENT: PERRL/EOMI, Pharynx Normal Neck: Normal Inspection, Non Tender, Supple Respiratory: Chest Non Tender, Lungs Clear, Normal Breath Sounds, No Accessory Muscle Use, No Respiratory Distress Cardiovascular: Regular Rate, Rhythm, No Gallop, No Murmur, Normal Peripheral Pulses Capillary Refill: Less Than 3 Seconds Gastrointestinal: soft, tenderness (epigastric pain to palpation around surgical site), other (wound clean/dry, serosanguinous fluid in DEIRDRE with more blood than would expect after surgery but she is on Lovenox) Extremity: Pedal Edema (minimal edema bilaterally ) Neurologic/Psychiatric: Alert, Oriented x3, No Motor/Sensory Deficits, Normal Mood/Affect Skin: Normal Color, Warm/Dry Lymphatic: No Adenopathy (cervical and supraclavicular) Other comments PE PER ATTENDING PHYSICIAN Results Lab Laboratory Tests 10/23/21 04:00 10/24/21 03:40 Assessment/Plan Assessment/Plan 1. Acute ischemic colon status post exploratory laparotomy and resection of terminal ileum with a right hemicolon followed by end-to-end anastomosis. 2. Postoperative acute respiratory failure improved. 3. Severe hyponatremia improving. 4. Echocardiogram did not reveal any systolic congestive heart failure. 5. History of hypertension 6. History of coronary artery disease status post PCI at [facility] in [place]. 7. Metabolic encephalopathy improving. 8. Urinary tract infection currently on antibiotic therapy. 9. Hyperglycemia secondary to steroids. Recommendations 1. Continue oxygenation with nasal cannula. 2. Will wean steroids. 3. Her anticoagulants have been started. 4. Surgical wound management per general surgeon 5. From critical care point of view she may be transferred to cardiac stepdown unit. 6. Starting diet per general surgery. 7. Reviewed with the CLINICAL EVALUATOR. Critical Care: Critically Ill Patient Time spent with patient (mins): 25 KY HAUSER MD Oct 24, 2021 10:43
--- NOTE | 2021-10-24 10:48 | Progress Note - Hospitalist ---
Subjective HPI/CC On Admission Date Seen by Provider: Oct 24, 2021 Time Seen by Provider: 11:00 CC: Respiratory Failure HPI: This is an elderly female clinic pt of with a hx of COPD who continues to smoke who presented to the [facility] ER with altered mental status, was found to have B/L pneumonia with respiratory insufficiency requiring central line and severe sepsis IV fluids with pressor therapy. She was given Meropenem and Vancomycin due to multiple allergies and EICU was given report by [facility] ER. At this current time pt remains stable but high risk for intubation. At time of rounds patient was preparing for emergent surgery due to ischemic bowel suspected and Dr. FERNANDEZ will perform the surgery Subjective/Events-last exam Patient doing remarkably well Extubated yesterday Moving to fourth floor antibiotics maintained On 3 L nasal cannula oxygen Remains n.p.o. until Dr. Eduardo changes at the bedside Review of Systems General: Fatigue Gastrointestinal: Abdominal Pain Focused Exam Lactate Level 10/21/21 16:55: Lactic Acid Level 3.14*H 10/22/21 10:10: Lactic Acid Level 1.49 Time of Focused Exam: 08:30 Objective Exam Vital Signs Vital Signs Date Time Temp Pulse Resp B/P (MAP) Pulse Ox O2 Delivery O2 Flow Rate FiO2 10/24/21 13:00 98 10/24/21 12:00 20 110/80 95 Nasal Cannula 3.00 Arterial Line 10/24/21 11:16 36.7 10/23/21 09:39 35 Capillary Refill : Less Than 3 SecondsLess Than 3 Seconds General Appearance: No Apparent Distress, WD/WN, Chronically ill, Obese Respiratory: Lungs Clear, Normal Breath Sounds Cardiovascular: Regular Rate, Rhythm Neurologic/Psychiatric: Alert, Oriented x3 Results/Procedures Lab Laboratory Tests 10/24/21 03:40 Patient resulted labs reviewed. Assessment/Plan Assessment and Plan Assess & Plan/Chief Complaint Assessment Sepsis Acute ischemic colitis status post ex lap with resection of terminal ileum and right hemicolon with anastomosis Postop ileus Hyponatremia Hyperglycemia UTI CAD History of DE Plan Reduce steroids to 40 mg Continue Abx Hold fluids Continue monitoring labs + lactic acid Continue pressors Start PPIs for gastritis prophylaxis Continue following with cardiology Continue following with surgery 10/23/2021: Extubation trial Supportive care 10/24/2021: Extubated yesterday Antibiotics postop ileus managed by surgery Critical Care Critically Ill Patient Diagnosis/Problems Diagnosis/Problems (1) Acute encephalopathy Status: Acute (2) Pneumonia Status: Acute Qualifiers: Pneumonia type: due to unspecified organism Laterality: bilateral Lung location: unspecified part of lung Qualified Codes: J18.9 - Pneumonia, unspecified organism (3) Lactic acid acidosis Status: Acute (4) UTI (urinary tract infection) Status: Acute Qualifiers: Urinary tract infection type: site unspecified Hematuria presence: without hematuria Qualified Codes: N39.0 - Urinary tract infection, site not specified (5) Respiratory failure Status: Acute Qualifiers: Chronicity: acute Respiratory failure complication: hypoxia Qualified Codes: J96.01 - Acute respiratory failure with hypoxia (6) Hyponatremia Status: Acute DAVEY JARQUIN DO Oct 24, 2021 10:48
[2021-10-24 11:16] VITALS: BP 131/68
[2021-10-24] MEDS: VANCOMYCIN INJECTION 1,250 MG in NS (IVPB) 250 ML IV SCH (13:00)
[2021-10-24 15:10] VITALS: BP 120/56
--- NOTE | 2021-10-24 15:24 | Progress Note - Cardiology ---
Cardiology SOAP Progress Note Subjective: No cp or palp or syncope or shortness of breath at rest Soreness and discomfort at site of laparotomy Gen malaise and weakness Objective: I&O/Vital Signs 10/24/21 10/24/21 10/24/21 10/24/21 03:50 03:51 04:00 05:00 Pulse 93 95 Resp 14 19 B/P (MAP) 102/56 118/58 Pulse Ox 90 92 91 O2 Delivery Nasal Cannula Nasal Cannula Nasal Cannula Nasal Cannula O2 Flow Rate 3.00 3.00 3.00 3.00 10/24/21 10/24/21 10/24/21 10/24/21 06:00 06:51 06:53 07:00 Pulse 95 96 Resp 18 B/P (MAP) 131/68 Pulse Ox 93 99 O2 Delivery Nasal Cannula Nasal Cannula Nasal Cannula O2 Flow Rate 3.00 3.00 2.00 10/24/21 10/24/21 10/24/21 10/24/21 07:00 08:00 08:00 08:00 Temp 36.7 Pulse 96 100 Resp 20 23 B/P (MAP) 131/58 111/64 Arterial Line Arterial Line Pulse Ox 93 94 94 O2 Delivery Nasal Cannula Nasal Cannula Nasal Cannula O2 Flow Rate 3.00 2.00 3.00 10/24/21 10/24/21 10/24/21 10/24/21 09:00 10:00 10:34 11:00 Pulse 96 94 96 Resp 27 18 18 B/P (MAP) 124/59 115/58 142/82 Arterial Line Arterial Line Arterial Line Pulse Ox 90 92 96 94 O2 Delivery Nasal Cannula Nasal Cannula Nasal Cannula Nasal Cannula O2 Flow Rate 3.00 3.00 3.00 3.00 10/24/21 10/24/21 11:16 12:00 Temp 36.7 Pulse 95 94 Resp 20 B/P (MAP) 110/80 Arterial Line Pulse Ox 96 95 O2 Delivery Nasal Cannula O2 Flow Rate 3.00 10/23/21 23:59 Intake Total 300 ml Output Total 355 ml Balance -55 ml Constitutional: AAO x 3, other (off vent) Respiratory: No accessory muscle use, No respiratory distress; chest expansion is symmetric, chest is bilaterally symmetric, rhonchi (scattered), other (coarse breathsounds throughout) Cardiovascular: regular rate-rhythm; No JVD; S1 and S2 Gastrointestional: other (post-op) Extremities: other (mod bilat LE swelling) Neurologic/Psychiatric: oriented x 3, other (seems to be able to move all limbs equally) Skin: normal color, warm/dry Results/Procedures: Labs Laboratory Tests 10/23/21 17:24: Glucometer 201H 10/23/21 23:33: Glucometer 192H 10/24/21 03:40: White Blood Count 33.6*H, Red Blood Count 3.09L, Hemoglobin 8.7L, Hematocrit 27L , Mean Corpuscular Volume 87, Mean Corpuscular Hemoglobin 28, Mean Corpuscular Hemoglobin Concent 32, Red Cell Distribution Width 16.7H, Platelet Count 189, Mean Platelet Volume 10.5, Immature Granulocyte % (Auto) 2, Neutrophils (%) (Auto) 94H, Lymphocytes (%) (Auto) 1L, Monocytes (%) (Auto) 3, Eosinophils (%) (Auto) 0, Basophils (%) (Auto) 0, Neutrophils # (Auto) 31.6H, Lymphocytes # (Auto) 0.4L, Monocytes # (Auto) 0.9, Eosinophils # (Auto) 0.0, Basophils # (Auto) 0.1, Immature Granulocyte # (Auto) 0.7H, Sodium Level 131L, Potassium Level 4.2, Chloride Level 95L, Carbon Dioxide Level 22, Anion Gap 14, Blood Urea Nitrogen 24H, Creatinine 1.17, Estimat Glomerular Filtration Rate 46, BU N/Creatinine Ratio 21, Glucose Level 196H, Calcium Level 8.5, Corrected Calcium 9.6, Phosphorus Level 3.0, Magnesium Level 2.5H, Total Bilirubin 0.4, Aspartate Amino Transf (AST/SGOT) 20, Alanine Aminotransferase (ALT/SGPT) 13, Alkaline Phosphatase 82, Total Protein 6.2L, Albumin 2.6L, Triglycerides Level 156H 10/24/21 11:05: Glucometer 251H 10/24/21 12:40: Vancomycin Level Trough 22.4H Microbiology 10/21/21 MRSA Screen - Final, Complete MRSA not isolated 10/21/21 Blood Culture - Preliminary, Resulted No growth 10/21/21 Urine Culture - Final, Complete Escherichia coli Laboratory Tests 10/23/21 04:00 10/24/21 03:40 A/P: Assessment: Sepsis (preop) - s/p exploratory laparotomy, right hemicolectomy, ileal resection(100cm) with ileocolonic anastamosis on 10/22/21 - post-op resp failure has improved (now off vent) CAD - reports follows with cardiology at [facility] in [place] and has had ca rdiac stents placed in June 2021 Acute on chronic exacerbation of COPD H/o CHF - Echo on 10/22/21: LVEF 55-60%, dilated RA DM 2 HTN HLD H/o frequent falls H/o frequent UTI's Plan: Complex management due to multiple comorbidities ASA and Plavix resumed Monitor labs MIRTA AL MD FACP FAC CCDS Oct 24, 2021 15:24
[2021-10-24 19:22] VITALS: BP 124/71
[2021-10-24] MEDS ORDERED: methylPREDNISolone 40 MG/ML (Solu-MEDROL) VIAL IV SCH (21:00)
[2021-10-24 23:10] VITALS: BP 139/66
[2021-10-25] MEDS: RT-ALBUTEROL/IPRATROPIUM 3 ML (DUONEB) VIAL INH SCH ×4 (02:19→21:04)
[2021-10-25 03:56] VITALS: BP 120/77
[2021-10-25] MEDS: metroNIDAZOLE 500MG/100ML IVPB 100 ML IV SCH ×3 (05:32→23:26)
[2021-10-25] MEDS: LACTOBACILLUS Acidoph/Bulgar 1 GM (LACTINEX) PACKET PO SCH ×4 (05:32→20:30)
[2021-10-25] MEDS: MEROPENEM 500 MG in NS (IVPB) 100 ML IV SCH ×3 (05:32→18:02)
[2021-10-25 05:55] LABS: BASOPHILS # (AUTO) 0.1 10^3/uL (0.0-0.1); BASOPHILS % (AUTO) 0 % (0-10); EOSINOPHILS % (AUTO) 0 % (0-10); HEMATOCRIT 28 % (35-52); HEMOGLOBIN 8.9 g/dL (11.5-16.0); LYMPHOCYTES % (AUTO) 4 % (12-44); MEAN CORPUSCULAR HEMOGLOBIN 28 pg (25-34); MEAN CORPUSCULAR HGB CONC 32 g/dL (32-36); MEAN CORPUSCULAR VOLUME 88 fL (80-99); MEAN PLATELET VOLUME 11.1 fL (9.0-12.2); MONOCYTES % (AUTO) 4 % (0-12); NEUTROPHILS # (AUTO) 22.4 10^3/uL (1.8-7.8); NEUTROPHILS % (AUTO) 90 % (42-75); PLATELET COUNT 198 10^3/uL (130-400); WHITE BLOOD COUNT 24.9 10^3/uL (4.3-11.0)
[2021-10-25 06:12] LABS: ALBUMIN 2.7 GM/DL (3.2-4.5)
[2021-10-25 06:13] LABS: POTASSIUM 4.2 MMOL/L (3.6-5.0)
[2021-10-25 06:14] LABS: CALCIUM 8.5 MG/DL (8.5-10.1)
[2021-10-25 06:15] LABS: TOTAL PROTEIN 6.4 GM/DL (6.4-8.2)
[2021-10-25 06:17] LABS: BILIRUBIN,TOTAL 0.4 MG/DL (0.1-1.0)
[2021-10-25 06:18] LABS: CREATININE SERUM 1.03 MG/DL (0.60-1.30)
[2021-10-25] MEDS: inSUlin ASPART (NovoLOG) 1 UNIT/0.01 ML (CHARGE PER UNIT) SC SCH ×4 (06:22→23:40)
[2021-10-25 08:00] VITALS: BP 170/71
[2021-10-25] MEDS: ASPIRIN 81 MG CHEW (CHILDREN'S ASA) PO SCH (08:59)
[2021-10-25] MEDS: CLOPIDOGREL 75 MG (PLAVIX) TABLET PO SCH (08:59)
[2021-10-25] MEDS: ENOXAPARIN 40 MG/0.4 ML (LOVENOX) SYR SC SCH ×2 (08:59→20:30)
[2021-10-25] MEDS: PANTOPRAZOLE 40 MG (PROTONIX) VIAL IV SCH ×2 (09:00→20:30)
--- NOTE | 2021-10-25 10:54 | Progress Note - Cardiology ---
Cardiology SOAP Progress Note Subjective: Lying in bed. Family x 1 at the bedside C/O abdominal discomfort, but reports it is improving She feels her SOB is at her baseling No c/o CP or palpitations Objective: I&O/Vital Signs 10/26/21 10/26/21 10/26/21 10/26/21 00:13 02:37 03:31 08:00 Temp 36.0 36.0 35.9 Pulse 71 85 94 Resp 20 18 18 B/P (MAP) 135/72 (93) 140/79 (99) 163/82 (109) Pulse Ox 93 94 96 95 O2 Delivery Nasal Cannula Nasal Cannula Nasal Cannula Nasal Cannula O2 Flow Rate 3.00 3.00 3.00 3.00 10/26/21 10/26/21 08:03 09:00 Pulse Ox 94 O2 Delivery Nasal Cannula Nasal Cannula O2 Flow Rate 3.00 3.00 10/26/21 00:00 Intake Total 780 ml Output Total 850 ml Balance -70 ml Constitutional: AAO x 3, other (off vent) Respiratory: No accessory muscle use, No respiratory distress; chest expansion is symmetric, chest is bilaterally symmetric, rhonchi (scattered), other (coarse breathsounds throughout) Cardiovascular: regular rate-rhythm; No JVD; S1 and S2 Gastrointestional: other (post-op) Extremities: other (mod bilat LE swelling) Neurologic/Psychiatric: oriented x 3, other (seems to be able to move all limbs equally) Skin: normal color, warm/dry Results/Procedures: Labs Laboratory Tests 10/25/21 11:22: Glucometer 192H 10/25/21 18:03: Glucometer 217H 10/25/21 20:39: Glucometer 178H 10/25/21 23:31: Glucometer 127H 10/26/21 04:36: White Blood Count 15.9H, Red Blood Count 3.24L, Hemoglobin 9.0L, Hematocrit 29L, Mean Corpuscular Volume 89, Mean Corpuscular Hemoglobin 28, Mean Corpuscular Hemoglobin Concent 31L, Red Cell Distribution Width 16.8H, Platelet Count 206, Mean Platelet Volume 10.4, Immature Granulocyte % (Auto) 4, Neutrophils (%) (Auto) 75, Lymphocytes (%) (Auto) 14, Monocytes (%) (Auto) 7, Eosinophils (%) (Auto) 0, Basophils (%) (Auto) 0, Neutrophils # (Auto) 12.0H, Lymphocytes # (Auto) 2.2, Monocytes # (Auto) 1.1H, Eosinophils # (Auto) 0.1, Basophils # (Auto) 0.0, Immature Granulocyte # (Auto) 0.6H, Sodium Level 134L, Potassium Level 3.7, Chloride Level 99, Carbon Dioxide Level 23, Anion Gap 12, Blood Urea Nitrogen 23H, Creatinine 0.87, Estimat Glomerular Filtration Rate 64, BUN/Creatinine Ratio 26, Glucose Level 127H, Calcium Level 8.1L Microbiology 10/21/21 MRSA Screen - Final, Complete MRSA not isolated 10/21/21 Blood Culture - Preliminary, Resulted No growth 10/21/21 Urine Culture - Final, Complete Escherichia coli A/P: Assessment: Sepsis (preop) - s/p exploratory laparotomy, right hemicolectomy, ileal resection(100cm) with ileocolonic anastamosis on 10/22/21 - post-op resp failure has improved (now off vent) CAD - reports follows with cardiology at [facility] in [place] and has had cardiac stents placed in June 2021 Acute on chronic exacerbation of COPD H/o CHF - Echo on 10/22/21: LVEF 55-60%, dilated RA DM 2 HTN HLD H/o frequent falls H/o frequent UTI's Plan: Complex management due to multiple comorbidities ASA and Plavix resumed Monitor labs BERLIN GUTHRIE Oct 25, 2021 10:54
[2021-10-25] MEDS ORDERED: TROUGH ORDER-PHARMACY XX ONE (11:30)
[2021-10-25 11:56] VITALS: BP 168/80
--- NOTE | 2021-10-25 13:20 | Progress Note ---
Subjective Subjective/Events-last exam Patient feeling much better today then yesterday. She stood and used the commode today. Tolerating CLD. + flatus Review of Systems Pulmonary: Dyspnea (with activitiy) Cardiovascular: Edema; No: Chest Pain Gastrointestinal: Abdominal Pain Musculoskeletal: leg pain Neurological: Weakness, Incoordination Focused Exam Time of Focused Exam: 08:30 Objective Exam Last Set of Vital Signs Vital Signs Date Time Temp Pulse Resp B/P (MAP) Pulse Ox O2 Delivery O2 Flow Rate FiO2 10/25/21 11:56 36.3 89 20 168/80 (109) 92 Nasal Cannula 3.00 10/23/21 09:39 35 Capillary Refill : Less Than 3 SecondsLess Than 3 Seconds I&O Intake and Output 10/24/21 23:59 Intake Total 1350 ml Output Total 1105 ml Balance 245 ml Intake Oral 1050 ml IV Total 300 ml Output Urine Total 950 ml Drainage Total 155 ml General: Alert, Oriented X3, No Acute Distress Lungs: Clear to Auscultation, Normal Air Movement Heart: Regular Rate, No Murmurs Abdomen: Soft, Other Extremities: Other (+ edema and brusing in LE bilaterally) Psych/Mental Status: Mood NL Results/Procedures Lab Laboratory Tests 10/24/21 18:17: Glucometer 273H 10/24/21 23:34: Glucometer 212H 10/25/21 05:40: White Blood Count 24.9H, Red Blood Count 3.15L, Hemoglobin 8.9L, Hematocrit 28L, Mean Corpuscular Volume 88, Mean Corpuscular Hemoglobin 28, Mean Corpuscular Hemoglobin Concent 32, Red Cell Distribution Width 16.9H, Platelet Count 198, Mean Platelet Volume 11.1, Immature Granulocyte % (Auto) 2, Neutrophils (%) (Auto) 90H, Lymphocytes (%) (Auto) 4L, Monocytes (%) (Auto) 4, Eosinophils (%) (Auto) 0, Basophils (%) (Auto) 0, Neutrophils # (Auto) 22.4H, Lymphocytes # (Auto) 1.0, Monocytes # (Auto) 1.0, Eosinophils # (Auto) 0.0, Basophils # (Auto) 0.1, Immature Granulocyte # (Auto) 0.4H, Sodium Level 133L, Potassium Level 4.2, Chloride Level 97L, Carbon Dioxide Level 25, Anion Gap 11, Blood Urea Nitrogen 28H, Creatinine 1.03, Estimat Glomerular Filtration Rate 53, BUN/Creatinine Ratio 27, Glucose Level 138H, Calcium Level 8.5, Corrected Calcium 9.5, Total Bilirubin 0.4, Aspartate Amino Transf (AST/SGOT) 16, Alanine Aminotransferase (ALT/SGPT) 13, Alkaline Phosphatase 79, Total Protein 6.4, Albumin 2.7L 10/25/21 11:22: Glucometer 192H Microbiology 10/21/21 MRSA Screen - Final, Complete MRSA not isolated 10/21/21 Blood Culture - Preliminary, Resulted No growth 10/21/21 Urine Culture - Final, Complete Escherichia coli Radiology NAME: SOUMYA RIOS REC#: [id number] PT STATUS: REG ER : 1950 PHYSICIAN: EDEN SIMMONS DO ADMIT DATE: 10/21/21/ER FS Signed Date of Exam:10/21/21 CT ANNE CHEST/NOANG ABD-PELV W EXAMINATION: CT angiography of the chest, CT of the abdomen and pelvis. TECHNIQUE: Contrast enhanced thin section helical images were obtained through the chest, abdomen and pelvis with intravenous contrast timed for the optimal opacification of the arterial structures of the chest per CTA protocol. Post-processing, reconstructions and interpretation of angiographic images of the vessels was performed. 3D MIP reconstructions were performed and reviewed. All CT scans use one or more of the following dose optimizing techniques: Automated exposure control, MA and/or KvP adjustment based on a patient size and exam type, or iterative reconstruction. HISTORY: SOA, hypoxia. COMPARISON: None available. FINDINGS: Vascular: No filling defects are seen within the visualized pulmonary arteries. Evaluation of the distal pulmonary arteries is limited secondary to respiratory motion and consolidation. There are vascular calcifications of the aorta and coronary vessels without aneurysm. Thyroid: The thyroid is normal. Mediastinum: Heart size is normal without significant pericardial effusion. No suspicious lymphadenopathy. Lungs and airways: There are patchy ground-glass opacities seen throughout both lungs. Trace bilateral pleural effusions with adjacent atelectasis or consolidation. No pneumothorax. The airways are normal. Solid organs: The liver is normal without focal lesion. The gallbladder is surgically absent. There is no biliary ductal dilation. Pancreas is normal. Spleen is normal. Adrenal glands are normal. The kidneys are normal without hydronephrosis. Bowel: The stomach and small bowel are normal without obstruction. There is diffuse wall thickening and inflammatory stranding of the colon. There is more prominent inflammatory stranding seen near the cecum with evidence of presumed air within the venous plexus versus free air. Peritoneum: No free fluid or loculated fluid collection. No suspicious lymphadenopathy. Vasculature: Calcification of the aorta without aneurysm. Musculoskeletal: Degenerative changes of the spine without suspicious osseous lesion or compression fracture. Pelvis: The uterus and adnexa are normal. Urinary bladder is decompressed with a Parker catheter. IMPRESSION: 1. Diffuse wall thickening of the colon with greatest area of inflammatory stranding seen near the cecum. Findings are concerning for an infectious or inflammatory colitis. There are findings suggestive of venous air adjacent to the cecum, less likely free air. 2. Patchy ground-glass opacities throughout both lungs which can be seen with pulmonary edema or atypical infection. Dictated by: Dictated on workstation # [id number] Dict: 10/21/21 1302 Trans: 10/21/21 1317 [id number] Interpreted by: LILIANA ANGELO DO Electronically signed by: LILIANA ANGELO DO 10/21/21 1317 Assessment/Plan Assessment/Plan (1) Severe sepsis Status: Resolved Assessment & Plan: 10/25: Resolved patient is doing well on the floor, HDS (2) Acute respiratory failure with hypoxia Status: Resolved Assessment & Plan: 10/25: Continue MAT protocol, Will continue to titrate oxygen as patient tolerates, encouraged sitting up in chair and ambulation to help with bowel recovery (3) Acute ischemic colitis Status: Acute Assessment & Plan: 10/25: S/p Ex lap with partial bowel resection, tolerated CLD (4) Pneumonia Status: Acute Qualifiers: Qualified Codes: J18.9 - Pneumonia, unspecified organism (5) UTI (urinary tract infection) Status: Acute Qualifiers: Qualified Codes: N39.0 - Urinary tract infection, site not specified (6) Hyponatremia Status: Acute Assessment & Plan: 10/25: Continues to trend up, will continue to monitor daily TITI KELLY MD Oct 25, 2021 13:20
[2021-10-25] MEDS: VANCOMYCIN 1 GM/NS 250 ML IVPB IV SCH ×2 (15:07)
--- NOTE | 2021-10-25 15:53 | Progress Note - Cardiology ---
Cardiology SOAP Progress Note Subjective: No cp or palp or syncope No shortness of breath at rest No n/v/d Gen weakness and malaise are improving Objective: I&O/Vital Signs 10/25/21 10/25/21 10/25/21 10/25/21 03:56 07:39 08:00 09:00 Temp 36.7 36.4 Pulse 86 86 Resp 20 20 B/P (MAP) 120/77 (91) 170/71 (104) Pulse Ox 93 92 95 O2 Delivery Nasal Cannula Nasal Cannula Nasal Cannula Nasal Cannula O2 Flow Rate 3.00 3.00 3.00 3.00 10/25/21 10/25/21 11:56 14:52 Temp 36.3 Pulse 89 Resp 20 B/P (MAP) 168/80 (109) Pulse Ox 92 94 O2 Delivery Nasal Cannula Nasal Cannula O2 Flow Rate 3.00 3.00 10/25/21 00:00 Intake Total 1110 ml Output Total 480 ml Balance 630 ml Constitutional: AAO x 3, other (off vent) Respiratory: No accessory muscle use, No respiratory distress; chest expansion is symmetric, chest is bilaterally symmetric, rhonchi (scattered), other (coarse breathsounds throughout) Cardiovascular: regular rate-rhythm; No JVD; S1 and S2 Gastrointestional: other (post-op) Extremities: other (mod bilat LE swelling) Neurologic/Psychiatric: oriented x 3, other (seems to be able to move all limbs equally) Skin: normal color, warm/dry Results/Procedures: Labs Laboratory Tests 10/24/21 18:17: Glucometer 273H 10/24/21 23:34: Glucometer 212H 10/25/21 05:40: White Blood Count 24.9H, Red Blood Count 3.15L, Hemoglobin 8.9L, Hematocrit 28L, Mean Corpuscular Volume 88, Mean Corpuscular Hemoglobin 28, Mean Corpuscular Hemoglobin Concent 32, Red Cell Distribution Width 16.9H, Platelet Count 198, Mean Platelet Volume 11.1, Immature Granulocyte % (Auto) 2, Neutrophils (%) (Aut o) 90H, Lymphocytes (%) (Auto) 4L, Monocytes (%) (Auto) 4, Eosinophils (%) (Auto) 0, Basophils (%) (Auto) 0, Neutrophils # (Auto) 22.4H, Lymphocytes # (Auto) 1.0, Monocytes # (Auto) 1.0, Eosinophils # (Auto) 0.0, Basophils # (Auto) 0.1, Immature Granulocyte # (Auto) 0.4H, Sodium Level 133L, Potassium Level 4.2, Chloride Level 97L, Carbon Dioxide Level 25, Anion Gap 11, Blood Urea Nitrogen 28H, Creatinine 1.03, Estimat Glomerular Filtration Rate 53, BUN/Creatinine Ratio 27, Glucose Level 138H, Calcium Level 8.5, Corrected Calcium 9.5, Total Bilirubin 0.4, Aspartate Amino Transf (AST/SGOT) 16, Alanine Aminotransferase (ALT/SGPT) 13, Alkaline Phosphatase 79, Total Protein 6.4, Albumin 2.7L, Vancomycin Level Trough 15.5 10/25/21 11:22: Glucometer 192H Microbiology 10/21/21 MRSA Screen - Final, Complete MRSA not isolated 10/21/21 Blood Culture - Preliminary, Resulted No growth 10/21/21 Urine Culture - Final, Complete Escherichia coli Laboratory Tests 10/24/21 03:40 10/25/21 05:40 A/P: Assessment: Sepsis (preop) - s/p exploratory laparotomy, right hemicolectomy, ileal resection(100cm) with ileocolonic anastamosis on 10/22/21 - post-op resp failure has improved (now off vent) CAD - reports follows with cardiology at [facility] in [place] and has had cardiac stents placed in June 2021 Acute on chronic exacerbation of COPD H/o CHF - Echo on 10/22/21: LVEF 55-60%, dilated RA DM 2 HTN HLD H/o frequent falls H/o frequent UTI's Plan: Complex management due to multiple comorbidities Continue ASA and Plavix Monitor labs MIRTA AL MD FACP FAC CCDS Oct 25, 2021 15:53
[2021-10-25 15:54] VITALS: BP 176/77
--- NOTE | 2021-10-25 16:52 | Progress Note ---
Subjective Date Seen by a Provider: Oct 25, 2021 Time Seen by a Provider: 16:00 Subjective/Events-last exam doing well. passing flatus and tolerating clears. leukocytosis likely pulm in origin. needs to increase ambulation. Focused Exam Time of Focused Exam: 08:30 Objective Exam Vital Signs Date Time Temp Pulse Resp B/P (MAP) Pulse Ox O2 Delivery O2 Flow Rate FiO2 10/25/21 15:54 36.6 96 19 176/77 (110) 95 Nasal Cannula 3.00 10/25/21 14:52 94 Nasal Cannula 3.00 10/25/21 11:56 36.3 89 20 168/80 (109) 92 Nasal Cannula 3.00 10/25/21 09:00 Nasal Cannula 3.00 10/25/21 08:00 36.4 86 20 170/71 (104) 95 Nasal Cannula 3.00 10/25/21 07:39 92 Nasal Cannula 3.00 10/25/21 03:56 36.7 86 20 120/77 (91) 93 Nasal Cannula 3.00 10/24/21 23:10 36.4 82 20 139/66 (90) 91 Nasal Cannula 3.00 10/24/21 20:53 92 Nasal Cannula 4.00 10/24/21 20:35 Nasal Cannula 3.00 10/24/21 19:22 36.3 90 22 124/71 (88) 90 Nasal Cannula 3.00 I & O 10/25/21 07:00 Intake Total 1260 ml Output Total 1035 ml Balance 225 ml Capillary Refill : Less Than 3 SecondsLess Than 3 Seconds General Appearance: No Apparent Distress HEENT: PERRL/EOMI Neck: Full Range of Motion Respiratory: Chest Non Tender, Decreased Breath Sounds Cardiovascular: Regular Rate, Rhythm Gastrointestinal: normal bowel sounds, soft, tenderness Extremity: Normal Capillary Refill Neurologic/Psychiatric: Alert, Oriented x3 Skin: Normal Color Lymphatic: No Adenopathy Results Lab Laboratory Tests 10/24/21 18:17: Glucometer 273H 10/24/21 23:34: Glucometer 212H 10/25/21 05:40: White Blood Count 24.9H, Red Blood Count 3.15L, Hemoglobin 8.9L, Hematocrit 28L, Mean Corpuscular Volume 88, Mean Corpuscular Hemoglobin 28, Mean Corpuscular Hemoglobin Concent 32, Red Cell Distribution Width 16.9H, Platelet Count 198, Mean Platelet Volume 11.1, Immature Granulocyte % (Auto) 2, Neutrophils (%) (Auto) 90H, Lymphocytes (%) (Auto) 4L, Monocytes (%) (Auto) 4, Eosinophils (%) (Auto) 0, Basophils (%) (Auto) 0, Neutrophils # (Auto) 22.4H, Lymphocytes # (Auto) 1.0, Monocytes # (Auto) 1.0, Eosinophils # (Auto) 0.0, Basophils # (Auto) 0.1, Immature Granulocyte # (Auto) 0.4H, Sodium Level 133L, Potassium Level 4.2, Chloride Level 97L, Carbon Dioxide Level 25, Anion Gap 11, Blood Urea Nitrogen 28H, Creatinine 1.03, Estimat Glomerular Filtration Rate 53, BUN/Creatinine Ratio 27, Glucose Level 138H, Calcium Level 8.5, Corrected Calcium 9.5, Total Bilirubin 0.4, Aspartate Amino Transf (AST/SGOT) 16, Alanine Aminotransferase (ALT/SGPT) 13, Alkaline Phosphatase 79, Total Protein 6.4, Albumin 2.7L, Vancomycin Level Trough 15.5 10/25/21 11:22: Glucometer 192H Microbiology 10/21/21 MRSA Screen - Final, Complete MRSA not isolated 10/21/21 Blood Culture - Preliminary, Resulted No growth 10/21/21 Urine Culture - Final, Complete Escherichia coli Assessment/Plan Assessment/Plan Assess & Plan/Chief Complaint s/p expl laparotomy and SBR and RHC. cont lovenox. increase ambulation. cont abx. await more bowel fxn then advance diet. MONICA FERNANDEZ MD Oct 25, 2021 16:52
[2021-10-25 19:49] VITALS: BP 152/66
[2021-10-26 00:13] VITALS: BP 135/72
[2021-10-26] MEDS: MEROPENEM 500 MG in NS (IVPB) 100 ML IV SCH ×5 (00:33→23:20)
[2021-10-26] MEDS: AMITRIPTYLINE 25 MG (ELAVIL) TAB PO SCH ×2 (00:33→20:09)
[2021-10-26] MEDS: ALPRAZolam 0.5 MG (XANAX) TAB PO PRN ×2 (00:33→20:09)
[2021-10-26] MEDS: RT-ALBUTEROL/IPRATROPIUM 3 ML (DUONEB) VIAL INH SCH ×3 (02:37→17:32)
[2021-10-26 03:31] VITALS: BP 140/79
[2021-10-26 04:51] LABS: BASOPHILS % (AUTO) 0 % (0-10); EOSINOPHILS # (AUTO) 0.1 10^3/uL (0.0-0.3); EOSINOPHILS % (AUTO) 0 % (0-10); HEMATOCRIT 29 % (35-52); LYMPHOCYTES # (AUTO) 2.2 10^3/uL (1.0-4.0); LYMPHOCYTES % (AUTO) 14 % (12-44); MEAN CORPUSCULAR HEMOGLOBIN 28 pg (25-34); MEAN CORPUSCULAR HGB CONC 31 g/dL (32-36); MEAN CORPUSCULAR VOLUME 89 fL (80-99); MEAN PLATELET VOLUME 10.4 fL (9.0-12.2); MONOCYTES # (AUTO) 1.1 10^3/uL (0.0-1.0); MONOCYTES % (AUTO) 7 % (0-12); NEUTROPHILS % (AUTO) 75 % (42-75); PLATELET COUNT 206 10^3/uL (130-400); WHITE BLOOD COUNT 15.9 10^3/uL (4.3-11.0)
[2021-10-26 04:59] LABS: POTASSIUM 3.7 MMOL/L (3.6-5.0)
[2021-10-26 05:00] LABS: CALCIUM 8.1 MG/DL (8.5-10.1)
[2021-10-26 05:04] LABS: CREATININE SERUM 0.87 MG/DL (0.60-1.30)
[2021-10-26] MEDS: inSUlin ASPART (NovoLOG) 1 UNIT/0.01 ML (CHARGE PER UNIT) SC SCH ×4 (05:32→23:18)
[2021-10-26] MEDS: metroNIDAZOLE 500MG/100ML IVPB 100 ML IV SCH ×2 (06:12→14:22)
[2021-10-26] MEDS: LACTOBACILLUS Acidoph/Bulgar 1 GM (LACTINEX) PACKET PO SCH ×4 (06:12→20:09)
[2021-10-26 08:00] VITALS: BP 163/82
[2021-10-26] MEDS: PANTOPRAZOLE 40 MG (PROTONIX) VIAL IV SCH (08:38)
[2021-10-26] MEDS: ENOXAPARIN 40 MG/0.4 ML (LOVENOX) SYR SC SCH ×2 (08:38→20:09)
[2021-10-26] MEDS: CLOPIDOGREL 75 MG (PLAVIX) TABLET PO SCH (08:39)
[2021-10-26] MEDS: ASPIRIN 81 MG CHEW (CHILDREN'S ASA) PO SCH (08:39)
--- NOTE | 2021-10-26 10:32 | Progress Note - Cardiology ---
Cardiology SOAP Progress Note Subjective: Sitting up in bed No c/o CP or SOB Remains on clear liquids Objective: I&O/Vital Signs 10/27/21 10/27/21 10/27/21 10/27/21 00:00 03:11 04:19 07:38 Temp 36.6 36.0 Pulse 86 83 Resp 17 18 B/P (MAP) 110/70 (83) 154/77 (102) Pulse Ox 92 94 97 96 O2 Delivery Nasal Cannula Nasal Cannula Nasal Cannula Nasal Cannula O2 Flow Rate 3.00 3.00 3.00 3.00 10/27/21 10/27/21 08:00 08:15 Temp 36.2 Pulse 95 Resp 18 B/P (MAP) 169/84 (112) Pulse Ox 97 97 O2 Delivery Nasal Cannula Nasal Cannula O2 Flow Rate 3.00 3.50 10/27/21 00:00 Intake Total 2470 ml Output Total 1280 ml Balance 1190 ml Constitutional: AAO x 3, other (off vent) Respiratory: No accessory muscle use, No respiratory distress; chest expansion is symmetric, chest is bilaterally symmetric, rhonchi (scattered), other (coarse breathsounds throughout) Cardiovascular: regular rate-rhythm; No JVD; S1 and S2 Gastrointestional: other (post-op) Extremities: other (mod bilat LE swelling) Neurologic/Psychiatric: oriented x 3, other (seems to be able to move all limbs equally) Skin: normal color, warm/dry Results/Procedures: Labs Laboratory Tests 10/26/21 11:19: Glucometer 155H 10/26/21 18:37: Glucometer 251H 10/26/21 23:14: Glucometer 110 10/27/21 04:35: White Blood Count 12.6H, Red Blood Count 3.14L, Hemoglobin 9.0L, Hematocrit 28L, Mean Corpuscular Volume 89, Mean Corpuscular Hemoglobin 29, Mean Corpuscular Hemoglobin Concent 32, Red Cell Distribution Width 17.0H, Platelet Count 199, Mean Platelet Volume 10.3, Immature Granulocyte % (Auto) 6, Neutrophils (%) (Auto) 68, Lymphocytes (%) (Auto) 17, Monocytes (%) (Auto) 7, Eosinophils (%) (Auto) 2, Basophils (%) (Auto) 0, Neutrophils # (Auto) 8.5H, Lymphocytes # (Auto ) 2.1, Monocytes # (Auto) 0.9, Eosinophils # (Auto) 0.3, Basophils # (Auto) 0.0, Immature Granulocyte # (Auto) 0.8H 10/27/21 05:54: Glucometer 119H Microbiology 10/21/21 MRSA Screen - Final, Complete MRSA not isolated 10/21/21 Blood Culture - Final, Complete No growth 10/21/21 Urine Culture - Final, Complete Escherichia coli A/P: Assessment: Sepsis (preop) - s/p exploratory laparotomy, right hemicolectomy, ileal resection(100cm) with ileocolonic anastamosis on 10/22/21 - post-op resp failure has improved (now off vent) CAD - reports follows with cardiology at [facility] in [place] and has had cardiac stents placed in June 2021 Acute on chronic exacerbation of COPD H/o CHF - Echo on 10/22/21: LVEF 55-60%, dilated RA DM 2 HTN HLD H/o frequent falls H/o frequent UTI's Plan: Complex management due to multiple comorbidities Continue ASA and Plavix Monitor labs BERLIN GUTHRIE Oct 26, 2021 10:32
[2021-10-26 11:50] VITALS: BP 164/76
--- NOTE | 2021-10-26 11:52 | Progress Note ---
Subjective Date Seen by a Provider: Oct 26, 2021 Time Seen by a Provider: 11:30 Subjective/Events-last exam doing well. tolerating clears and passing flatus. no fever/chills. leukocytosis improving. still physically weak. Focused Exam Time of Focused Exam: 08:30 Objective Exam Vital Signs Date Time Temp Pulse Resp B/P (MAP) Pulse Ox O2 Delivery O2 Flow Rate FiO2 10/26/21 09:00 Nasal Cannula 3.00 10/26/21 08:03 94 Nasal Cannula 3.00 10/26/21 08:00 35.9 94 18 163/82 (109) 95 Nasal Cannula 3.00 10/26/21 03:31 36.0 85 18 140/79 (99) 96 Nasal Cannula 3.00 10/26/21 02:37 94 Nasal Cannula 3.00 10/26/21 00:13 36.0 71 20 135/72 (93) 93 Nasal Cannula 3.00 10/25/21 21:04 95 Nasal Cannula 3.00 10/25/21 20:35 Nasal Cannula 3.00 10/25/21 19:49 36.5 92 20 152/66 (94) 91 Nasal Cannula 3.00 10/25/21 15:54 36.6 96 19 176/77 (110) 95 Nasal Cannula 3.00 10/25/21 14:52 94 Nasal Cannula 3.00 10/25/21 11:56 36.3 89 20 168/80 (109) 92 Nasal Cannula 3.00 I & O 10/26/21 07:00 Intake Total 2752.5 ml Output Total 1190 ml Balance 1562.5 ml Capillary Refill : Less Than 3 SecondsLess Than 3 Seconds General Appearance: No Apparent Distress HEENT: PERRL/EOMI Neck: Full Range of Motion Respiratory: Chest Non Tender, Decreased Breath Sounds, Wheezing Cardiovascular: Regular Rate, Rhythm Gastrointestinal: normal bowel sounds, soft, tenderness Extremity: Normal Capillary Refill Neurologic/Psychiatric: Alert, Oriented x3 Skin: Normal Color Lymphatic: No Adenopathy Results Lab Laboratory Tests 10/25/21 18:03: Glucometer 217H 10/25/21 20:39: Glucometer 178H 10/25/21 23:31: Glucometer 127H 10/26/21 04:36: White Blood Count 15.9H, Red Blood Count 3.24L, Hemoglobin 9.0L, Hematocrit 29L, Mean Corpuscular Volume 89, Mean Corpuscular Hemoglobin 28, Mean Corpuscular Hemoglobin Concent 31L, Red Cell Distribution Width 16.8H, Platelet Count 206, Mean Platelet Volume 10.4, Immature Granulocyte % (Auto) 4, Neutrophils (%) (Auto) 75, Lymphocytes (%) (Auto) 14, Monocytes (%) (Auto) 7, Eosinophils (%) (Auto) 0, Basophils (%) (Auto) 0, Neutrophils # (Auto) 12.0H, Lymphocytes # (Auto) 2.2, Monocytes # (Auto) 1.1H, Eosinophils # (Auto) 0.1, Basophils # (Auto) 0.0, Immature Granulocyte # (Auto) 0.6H, Sodium Level 134L, Potassium Level 3.7, Chloride Level 99, Carbon Dioxide Level 23, Anion Gap 12, Blood Urea Nitrogen 23H, Creatinine 0.87, Estimat Glomerular Filtration Rate 64, BUN/Creatinine Ratio 26, Glucose Level 127H, Calcium Level 8.1L 10/26/21 11:19: Glucometer 155H Microbiology 10/21/21 MRSA Screen - Final, Complete MRSA not isolated 10/21/21 Blood Culture - Preliminary, Resulted No growth 10/21/21 Urine Culture - Final, Complete Escherichia coli Assessment/Plan Assessment/Plan Assess & Plan/Chief Complaint s/p expl laparotomy and SBR and RHC. cont lovenox. increase ambulation. cont abs. advance to dys 3 diet. MONICA FERNANDEZ MD Oct 26, 2021 11:52
--- NOTE | 2021-10-26 14:24 | Physical Therapy Evaluation ---
PT Evaluation-General Medical Diagnosis Admission Date Oct 21, 2021 at 14:22 Medical Diagnosis: septic shock/respiratory failure/pneumonia Onset Date: Oct 21, 2021 Therapy Diagnosis Therapy Diagnosis: debility/weakness Precautions Precautions/Isolations: Fall Prevention, Standard Precautions Referral Physician: Kayla Reason for Referral: Evaluation/Treatment Medical History Pertinent Medical History: CAD, COPD (O2 dependent), DM, Heart Failure, HTN, Smoking Additional Medical History exploratory laparotomy, right hemicolectomy, ileal resection(100cm) with ileocolonic anastamosis. Current History EMS secondary to AMS/hypoxia Reviewed History: Yes Social History Home: Single Level Current Living Status: Spouse Entry Into Home: Stairs With Railing PT Steps Into Home: 2 Prior Prior Level of Function SCALE: Activities may be completed with or without assistive devices. 9-Jsyrczuosx-fkqggvt completes the activity by him/herself with no assistance from a helper. 5-Set-up or Clean-up Assistance-helper sets up or cleans up; patient completes activity. [place] assists only prior to or following the activity. 4-Supervision or Touching Assistance-helper provides verbal cues and/or touching/steadying and/or contact guard assistance as patient completes activity. Assistance may be provided throughout the activity or intermittently. 3-Partial/Moderate Assistance-helper does LESS THAN HALF the effort. [place] lifts, holds or supports trunk or limbs, but provides less than half the effort. 2-Substantial/Maximal Assistance-helper does MORE THAN HALF the effort. [place] lifts or holds trunk or limbs and provides more than half the effort. 4-Ugnvujxhb-rqgfdg does ALL the effort. Patient does none of the effort to complete the activity. Or, the assistance of 2 or more helpers is required for the patient to complete the activity. If activity was not attempted, code reason: 7-Patient Refused. 9-Not Applicable-not attempted and the patient did not perform the activity before the current illness, exacerbation or injury. 10-Not Attempted due to Environmental Limitations-(lack of equipment, weather restraints, etc.). 88-Not Attempted due to Medical Conditions or Safety Concerns. Bed Mobility: 6 Transfers (B,C,W/C): 6 Gait: 6 Stairs: 6 Indoor Mobility (Ambulation): Independent Stairs: Independent Prior Devices Use: Other-see list below Prior Device Use: 3WW PT Evaluation-Current Subjective Patient agrees to PT. Patient reports her fell and broke his hip and is in a hospital in [place]. Pain Numeric Pain Scale: 0-No Pain Location: No Pain Reported Objective Patient Orientation: Normal For Age Attachments: Oxygen, Drains ROM/Strength ROM Lower Extremities bilateral LE WFL Strength Lower Extremities 3+/5 grossly bilateral LE Integumentary/Posture Bowel Incontinence: No Bladder Incontinence: Parker Cath Posture slight kyphosis Neuromuscular (Tone, Coordination, Reflexes) grossly intact Sensory Vision: Functional Hearing: Functional Transfers Lying to Sitting/Side of Bed(Q: 3 Sit to Stand (QC): 3 Chair/Xnn-dn-Ncxif Xfer(QC): 3 Gait Mode of Locomotion: Walk Anticipated Mode of Locomotion: Walk Walk 10 feet (QC): 3 Walk 50 ft with 2 Turns(QC): 88 Walk 150 ft (QC): 88 Gait Assistive Device: FWW Comments/Gait Description very slow, functional gait sequence Balance Sitting Static: Normal Sitting Dynamic: Normal Standing Static: Good Standing Dynamic: Good Assessment/Needs 71 y.o. female, will benefit from skilled PT to address functional strength and mobility to improve current LOF . Rehab Potential: Fair PT Brazing Machine Feeder Goals Brazing Machine Feeder Goals PT Retirement Goals Time Frame: Nov 06, 2021 Roll Left & Right (QC): 6 Sit to Lying (QC): 6 Lying-Sitting on Side/Bed(QC): 6 Sit to Stand (QC): 6 Chair/Kos-vw-Yokdl Xfer(QC): 6 Toilet Transfer (QC): 6 Walk 10 feet (QC): 6 Walk 50ft with 2 Turns (QC): 6 PT Plan Problem List Problem List: Activity Tolerance, Functional Strength, Safety, Balance, Gait, Transfer, Bed Mobility Treatment/Plan Treatment Plan: Continue Plan of Care Treatment Plan: Bed Mobility, Education, Functional Activity Virgen, Functional Strength, Gait, Safety, Therapeutic Exercise, Transfers Treatment Duration: Nov 06, 2021 Frequency: 6 times per week Estimated Hrs Per Day: .5 hour per day Patient and/or Family Agrees t: Yes Time/GCodes Time In: 1326 Time Out: 1338 Total Billed Treatment Time: 12 Total Billed Treatment 1 visit EVModC 12 min JO BARTON PT Oct 26, 2021 14:24
--- NOTE | 2021-10-26 15:09 | Occupational Therapy Eval ---
OT Evaluation-General/PLF Medical Diagnosis Admission Date Oct 21, 2021 at 14:22 Medical Diagnosis: septic shock/respiratory failure/pneumonia Onset Date: Oct 21, 2021 Therapy Diagnosis Therapy Diagnosis: decreased ADL status Precautions Precautions/Isolations: Fall Prevention, Standard Precautions Referral Physician: Kayla Medical History Pertinent Medical History: CAD, COPD (O2 dependent), DM, Heart Failure, HTN, Smoking Additional Medical History heart attack, ulcer, arthritis, hypothyroidism, Anxiety Current History ED due to AMS/abdominal pain. exploratory laparotomy, right hemicolectomy, ileal resection(100cm) with ileocolonic anastamosis. Social History Home: Single Level Current Living Status: Spouse Entry Into Home: Stairs With Railing Steps Into Home: 2 lives with son and grandchild. Her grandchild works throughout the day and isn't always home. ADL-Prior Level of Function SCALE: Activities may be completed with or without assistive devices. 7-Zxanangxmh-wrqmhvn completes the activity by him/herself with no assistance from a helper. 5-Set-up or Clean-up Assistance-helper sets up or cleans up; patient completes activity. [place] assists only prior to or following the activity. 4-Supervision or Touching Assistance-helper provides verbal cues and/or touching/steadying and/or contact guard assistance as patient completes activity. Assistance may be provided throughout the activity or intermittently. 3-Partial/Moderate Assistance-helper does LESS THAN HALF the effort. [place] lift s, holds or supports trunk or limbs, but provides less than half the effort. 2-Substantial/Maximal Assistance-helper does MORE THAN HALF the effort. [place] lifts or holds trunk or limbs and provides more than half the effort. 5-Nfdwttmxk-zswtjq does ALL the effort. Patient does none of the effort to complete the activity. Or, the assistance of 2 or more helpers is required for the patient to complete the activity. If activity was not attempted, code reason: 7-Patient Refused. 9-Not Applicable-not attempted and the patient did not perform the activity before the current illness, exacerbation or injury. 10-Not Attempted due to Environmental Limitations-(lack of equipment, weather restraints, etc.). 88-Not Attempted due to Medical Conditions or Safety Concerns. ADL PLOF Comments Pt reports IND with ADLs at [facility], using walker for functional mobility. her is usually around her when she is performing ADLs, but doesn't provide physical assistance (SBA for safety) Self Care: Independent Functional Cognition: Independent DME/Equipment: Bath Chair, Shower OT Current Status Subjective Pt up in recliner. Pt states she hopes to be able to discharge home tomorrow, as her is having surgery for a hip fracture today. Mental Status/Objective Patient Orientation: Person, Place, Situation Attachments: Drains, Oxygen Current Upper Extremity ROM WFL Upper Extremity Strength grossly 3+/5 ADL-Treatment Eating (QC): 6 (Per pt report) Oral Hygiene (QC): 5 (set up per clincial judgment.) Shower/Bathe Self (QC): 7 On/Off Footwear (QC): 7 (Pt states she doesn't normally wear shoes/socks around the house. Will only wear slip on shoes if needed.) Other Treatments Pt seated in recliner, OT educated pt on purpose and benefit of OT. Pt provided information about PLOF and home set up. Pt reports she is independent with meals, she doesn't typically eat lunch, but had breakfast late morning. Pt states she thinks she will be able to perform ADLs upon discharging home without assistance. She declines attempting ADLs at this time. OT educated pt on how LE dressing may be more difficult or limited due to pain from abdominal surgery, she verbalized understanding. Pt declined needed to toilet at this time. OT educated pt on OT POC with focus on increasing safety and independence with ADLs and functional mobility, and addressing any concerns pt has with ADL function for discharge. Per PT evaluation, pt requires QC 3 for supine <-> sit, sit to stand and bed to chair transfers. Post tx, pt up in recliner, call light in reach and all needs met. Education OT Patient Education: Correct positioning, Energy conservation, Modified ADL techniques, Progress toward Goal/Update tx plan, Purpose of tx/functional activities, Rehab process Teaching Recipient: Patient Teaching Methods: Discussion Response to Teaching: Verbalize Understanding OT Geomatics Professor Goals Intermediate Goals Time Frame: Nov 05, 2021 Eating (QC): 6 Oral Hygiene (QC): 6 Toileting Hygiene (QC): 6 Shower/Bathe Self (QC): 6 Upper Body Dressing (QC): 6 Lower Body Dressing (QC): 6 On/Off Footwear (QC): 6 Additional Goals: 1-Demonstrate ADL Tasks, 2-Verbalize Understanding, 3-ImproveStrength/Virgen 1=Demonstrate adherence to instructed precautions during ADL tasks. 2=Patient will verbalize/demonstrate understanding of assistive devices/modifications for ADL. 3=Patient will improve strength/tolerance for activity to enable patient to per form ADL's. OT Education/Plan Problem List/Assessment Assessment: Decreased Activ Tolerance, Decreased UE Strength, Impaired Funct Balance, Impaired I ADL's, Impaired Self-Care Skills Discharge Recommendations Plan/Recommendations: Continue POC Treatment Plan/Plan of Care Patient would benefit from OT for education, treatment and training to promote independence in ADL's, mobility, safety and/or upper extremity function for ADL's. Plan of Care: ADL Retraining, Functional Mobility, UE Funct Exercise/Act Treatment Duration: Nov 05, 2021 Frequency: 3 times per week (3-5 times per week) Rehab Potential: Fair Time/GCodes Start Time: 13:45 Stop Time: 13:56 Total Time Billed (hr/min): 11 Billed Treatment Time 1, PATT SANCHEZ OT Oct 26, 2021 15:09
--- NOTE | 2021-10-26 15:14 | Progress Note - Cardiology ---
Cardiology SOAP Progress Note Subjective: No cp or palp or syncope No shortness of breath at rest Gen malaise and weakness are improving No n/v/d Objective: I&O/Vital Signs 10/26/21 10/26/21 10/26/21 10/26/21 03:31 08:00 08:03 09:00 Temp 36.0 35.9 Pulse 85 94 Resp 18 18 B/P (MAP) 140/79 (99) 163/82 (109) Pulse Ox 96 95 94 O2 Delivery Nasal Cannula Nasal Cannula Nasal Cannula Nasal Cannula O2 Flow Rate 3.00 3.00 3.00 3.00 10/26/21 10/26/21 11:50 15:09 Temp 36.0 Pulse 88 Resp 18 B/P (MAP) 164/76 (105) Pulse Ox 94 94 O2 Delivery Nasal Cannula Nasal Cannula O2 Flow Rate 3.00 3.00 10/25/21 23:59 Intake Total 780 ml Output Total 850 ml Balance -70 ml Constitutional: AAO x 3, other (off vent) Respiratory: No accessory muscle use, No respiratory distress; chest expansion is symmetric, chest is bilaterally symmetric, rhonchi (scattered), other (coarse breathsounds throughout) Cardiovascular: regular rate-rhythm; No JVD; S1 and S2 Gastrointestional: other (post-op) Extremities: other (mod bilat LE swelling) Neurologic/Psychiatric: oriented x 3, other (seems to be able to move all limbs equally) Skin: normal color, warm/dry Results/Procedures: Labs Laboratory Tests 10/25/21 18:03: Glucometer 217H 10/25/21 20:39: Glucometer 178H 10/25/21 23:31: Glucometer 127H 10/26/21 04:36: White Blood Count 15.9H, Red Blood Count 3.24L, Hemoglobin 9.0L, Hematocrit 29L, Mean Corpuscular Volume 89, Mean Corpuscular Hemoglobin 28, Mean Corpuscular Hemoglobin Concent 31L, Red Cell Distribution Width 16.8H, Platelet Count 206, Mean Platelet Volume 10.4, Immature Granulocyte % (Auto) 4, Neutrophils (%) (Auto) 75, Lymphocytes (%) (Auto) 14, Monocytes (%) (Auto) 7, Eosinophils (%) (Auto) 0, Basophils (%) (Auto) 0, Neutrophils # (Auto) 12.0H, Lymphocytes # (Auto) 2.2, Monocytes # (Auto) 1.1H, Eosinophils # (Auto) 0.1, Basophils # (Auto) 0.0, Immature Granulocyte # (Auto) 0.6H, Sodium Level 134L, Potassium Level 3.7, Chloride Level 99, Carbon Dioxide Level 23, Anion Gap 12, Blood Urea Nitrogen 23H, Creatinine 0.87, Estimat Glomerular Filtration Rate 64, BU N/Creatinine Ratio 26, Glucose Level 127H, Calcium Level 8.1L 10/26/21 11:19: Glucometer 155H Microbiology 10/21/21 MRSA Screen - Final, Complete MRSA not isolated 10/21/21 Blood Culture - Preliminary, Resulted No growth 10/21/21 Urine Culture - Final, Complete Escherichia coli Laboratory Tests 10/25/21 05:40 10/26/21 04:36 A/P: Assessment: Sepsis (preop) - s/p exploratory laparotomy, right hemicolectomy, ileal resection(100cm) with ileocolonic anastamosis on 10/22/21 - post-op resp failure has improved (now off vent) CAD - reports follows with cardiology at [facility] in [place] and has had cardiac stents placed in June 2021 Acute on chronic exacerbation of COPD H/o CHF - Echo on 10/22/21: LVEF 55-60%, dilated RA DM 2 HTN HLD H/o frequent falls H/o frequent UTI's Plan: Complex management due to multiple comorbidities Continue ASA and Plavix Monitor labs Outpt cardiac f/u advised MIRTA AL MD FACP [facility] CCDS Oct 26, 2021 15:13
[2021-10-26 15:42] VITALS: BP 111/72
[2021-10-26] MEDS: VANCOMYCIN 1 GM/NS 250 ML IVPB IV SCH ×2 (16:51)
--- NOTE | 2021-10-26 19:05 | Progress Note ---
Subjective Subjective/Events-last exam Patient is feeling much better this AM. She is stressed this AM because her fell and broke his hip last night. Tolerating CLD. Passing gas. No BM. Review of Systems Pulmonary: Dyspnea, Cough Cardiovascular: Edema; No: Chest Pain, Palpitations Neurological: Weakness, Incoordination Focused Exam Time of Focused Exam: 08:30 Objective Exam Last Set of Vital Signs Vital Signs Date Time Temp Pulse Resp B/P (MAP) Pulse Ox O2 Delivery O2 Flow Rate FiO2 10/26/21 15:42 36.4 100 20 111/72 (85) 94 Nasal Cannula 3.00 10/23/21 09:39 35 Capillary Refill : Less Than 3 SecondsLess Than 3 Seconds I&O Intake and Output 10/25/21 23:59 Intake Total 930 ml Output Total 1195 ml Balance -265 ml Intake Oral 830 ml IV Total 100 ml Output Urine Total 1025 ml Drainage Total 170 ml General: Alert, Oriented X3, Cooperative, No Acute Distress Lungs: Clear to Auscultation, Normal Air Movement Heart: Regular Rate, No Murmurs Abdomen: Normal Bowel Sounds, Soft, No Tenderness, No Masses Extremities: Other (2+ pitting edema) Neuro: Normal Speech, Sensation Intact Psych/Mental Status: Mental Status NL, Mood NL Results/Procedures Lab Laboratory Tests 10/25/21 20:39: Glucometer 178H 10/25/21 23:31: Glucometer 127H 10/26/21 04:36: White Blood Count 15.9H, Red Blood Count 3.24L, Hemoglobin 9.0L, Hematocrit 29L, Mean Corpuscular Volume 89, Mean Corpuscular Hemoglobin 28, Mean Corpuscular Hemoglobin Concent 31L, Red Cell Distribution Width 16.8H, Platelet Count 206, Mean Platelet Volume 10.4, Immature Granulocyte % (Auto) 4, Neutrophils (%) (Auto) 75, Lymphocytes (%) (Auto) 14, Monocytes (%) (Auto) 7, Eosinophils (%) (Auto) 0, Basophils (%) (Auto) 0, Neutrophils # (Auto) 12.0H, Lymphocytes # (Auto) 2.2, Monocytes # (Auto) 1.1H, Eosinophils # (Auto) 0.1, Basophils # (Auto) 0.0, Immature Granulocyte # (Auto) 0.6H, Sodium Level 134L, Potassium Level 3.7, Chloride Level 99, Carbon Dioxide Level 23, Anion Gap 12, Blood Urea Nitrogen 23H, Creatinine 0.87, Estimat Glomerular Filtration Rate 64, BUN/Creatinine Ratio 26, Glucose Level 127H, Calcium Level 8.1L 10/26/21 11:19: Glucometer 155H 10/26/21 18:37: Glucometer 251H Microbiology 10/21/21 MRSA Screen - Final, Complete MRSA not isolated 10/21/21 Blood Culture - Final, Complete No growth 10/21/21 Urine Culture - Final, Complete Escherichia coli Radiology NAME: SOUMYA RIOS [facility] REC#: [id number] PT STATUS: REG ER : 1950 PHYSICIAN: EDEN SIMMONS DO ADMIT DATE: 10/21/21/ER FS Signed Date of Exam:10/21/21 CT ANNE CHEST/NOANG ABD-PELV W EXAMINATION: CT angiography of the chest, CT of the abdomen and pelvis. TECHNIQUE: Contrast enhanced thin section helical images were obtained through the chest, abdomen and pelvis with intravenous contrast timed for the optimal opacification of the arterial structures of the chest per CTA protocol. Post-processing, reconstructions and interpretation of angiographic images of the vessels was performed. 3D MIP reconstructions were performed and reviewed. All CT scans use one or more of the following dose optimizing techniques: Automated exposure control, MA and/or KvP adjustment based on a patient size and exam type, or iterative reconstruction. HISTORY: SOA, hypoxia. COMPARISON: None available. FINDINGS: Vascular: No filling defects are seen within the visualized pulmonary arteries. Evaluation of the distal pulmonary arteries is limited secondary to respiratory motion and consolidation. There are vascular calcifications of the aorta and coronary vessels without aneurysm. Thyroid: The thyroid is normal. Mediastinum: Heart size is normal without significant pericardial effusion. No suspicious lymphadenopathy. Lungs and airways: There are patchy ground-glass opacities seen throughout both lungs. Trace bilateral pleural effusions with adjacent atelectasis or consolidation. No pneumothorax. The airways are normal. Solid organs: The liver is normal without focal lesion. The gallbladder is surgically absent. There is no biliary ductal dilation. Pancreas is normal. Spleen is normal. Adrenal glands are normal. The kidneys are normal without hydronephrosis. Bowel: The stomach and small bowel are normal without obstruction. There is diffuse wall thickening and inflammatory stranding of the colon. There is more prominent inflammatory stranding seen near the cecum with evidence of presumed air within the venous plexus versus free air. Peritoneum: No free fluid or loculated fluid collection. No suspicious lymphadenopathy. Vasculature: Calcification of the aorta without aneurysm. Musculoskeletal: Degenerative changes of the spine without suspicious osseous lesion or compression fracture. Pelvis: The uterus and adnexa are normal. Urinary bladder is decompressed with a Parker catheter. IMPRESSION: 1. Diffuse wall thickening of the colon with greatest area of inflammatory stranding seen near the cecum. Findings are concerning for an infectious or inflammatory colitis. There are findings suggestive of venous air adjacent to the cecum, less likely free air. 2. Patchy ground-glass opacities throughout both lungs which can be seen with pulmonary edema or atypical infection. Dictated by: Dictated on workstation # [id number] Dict: 10/21/21 1302 Trans: 10/21/21 1317 [id number] Interpreted by: LILIANA ANGELO DO Electronically signed by: LILIANA ANGELO DO 10/21/21 1317 Assessment/Plan Assessment/Plan (1) Severe sepsis Status: Resolved Assessment & Plan: 10/25: Resolved patient is doing well on the floor, HDS (2) Acute respiratory failure with hypoxia Status: Resolved Assessment & Plan: 10/25: Continue MAT protocol, Will continue to titrate oxygen as patient tolerates, encouraged sitting up in chair and ambulation to help with bowel recovery (3) Acute ischemic colitis Status: Acute Assessment & Plan: 10/25: S/p Ex lap with partial bowel resection, tolerated CLD 10/26: Passing gas, pain improved (4) Pneumonia Status: Acute Qualifiers: Qualified Codes: J18.9 - Pneumonia, unspecified organism (5) UTI (urinary tract infection) Status: Acute Qualifiers: Qualified Codes: N39.0 - Urinary tract infection, site not specified (6) Hyponatremia Status: Acute Assessment & Plan: 10/25: Continues to trend up, will continue to monitor daily (7) Physical debility Status: Acute Assessment & Plan: 10/26: IRF consult placed, patient will no longer have manager medicare at home since broke hip and is hospitalized. TITI KELLY MD Oct 26, 2021 19:05
[2021-10-26 19:54] VITALS: BP 150/70
[2021-10-26] MEDS: PANTOPRAZOLE 40 MG (PROTONIX) TAB PO SCH (20:09)
[2021-10-27] VITALS (8 sets, daily range): BP systolic 110–169; BP diastolic 65–84
[2021-10-27] MEDS: RT-ALBUTEROL/IPRATROPIUM 3 ML (DUONEB) VIAL INH SCH ×5 (00:35→21:51)
[2021-10-27 04:48] LABS: BASOPHILS % (AUTO) 0 % (0-10); EOSINOPHILS # (AUTO) 0.3 10^3/uL (0.0-0.3); EOSINOPHILS % (AUTO) 2 % (0-10); HEMATOCRIT 28 % (35-52); LYMPHOCYTES # (AUTO) 2.1 10^3/uL (1.0-4.0); LYMPHOCYTES % (AUTO) 17 % (12-44); MEAN CORPUSCULAR HEMOGLOBIN 29 pg (25-34); MEAN CORPUSCULAR HGB CONC 32 g/dL (32-36); MEAN CORPUSCULAR VOLUME 89 fL (80-99); MEAN PLATELET VOLUME 10.3 fL (9.0-12.2); MONOCYTES # (AUTO) 0.9 10^3/uL (0.0-1.0); MONOCYTES % (AUTO) 7 % (0-12); NEUTROPHILS # (AUTO) 8.5 10^3/uL (1.8-7.8); NEUTROPHILS % (AUTO) 68 % (42-75); PLATELET COUNT 199 10^3/uL (130-400); WHITE BLOOD COUNT 12.6 10^3/uL (4.3-11.0)
[2021-10-27] MEDS: LACTOBACILLUS Acidoph/Bulgar 1 GM (LACTINEX) PACKET PO SCH ×4 (06:04→20:51)
[2021-10-27] MEDS: MEROPENEM 500 MG in NS (IVPB) 100 ML IV SCH ×3 (06:04→17:13)
[2021-10-27] MEDS: inSUlin ASPART (NovoLOG) 1 UNIT/0.01 ML (CHARGE PER UNIT) SC SCH ×3 (06:05→17:54)
[2021-10-27] MEDS: ENOXAPARIN 40 MG/0.4 ML (LOVENOX) SYR SC SCH ×2 (09:05→20:51)
[2021-10-27] MEDS: PANTOPRAZOLE 40 MG (PROTONIX) TAB PO SCH ×2 (09:05→20:51)
[2021-10-27] MEDS: ASPIRIN 81 MG CHEW (CHILDREN'S ASA) PO SCH (09:05)
[2021-10-27] MEDS: CLOPIDOGREL 75 MG (PLAVIX) TABLET PO SCH (09:05)
--- NOTE | 2021-10-27 10:22 | Progress Note - Cardiology ---
Cardiology SOAP Progress Note Subjective: Sitting up in recliner at the bedside No c/o CP or SOB Objective: I&O/Vital Signs 10/27/21 10/27/21 10/27/21 10/28/21 21:51 22:35 23:00 02:45 Temp 36.2 36.0 Pulse 87 81 Resp 20 B/P (MAP) 127/74 (91) Pulse Ox 93 97 93 94 O2 Delivery Nasal Cannula Nasal Cannula Nasal Cannula O2 Flow Rate 3.00 3.00 3.00 10/28/21 10/28/21 10/28/21 03:28 08:00 08:00 Temp 36.6 36.0 Pulse 81 68 Resp 20 18 B/P (MAP) 146/80 (102) 137/76 (96) Pulse Ox 97 98 O2 Delivery Nasal Cannula Nasal Cannula Nasal Cannula O2 Flow Rate 3.00 3.00 3.00 10/28/21 00:00 Intake Total 760 ml Output Total 1180 ml Balance -420 ml Constitutional: AAO x 3, other (off vent) Respiratory: No accessory muscle use, No respiratory distress; chest expansion is symmetric, chest is bilaterally symmetric, rhonchi (scattered), other (coarse breathsounds throughout) Cardiovascular: regular rate-rhythm; No JVD; S1 and S2 Gastrointestional: other (post-op) Extremities: other (mod bilat LE swelling) Neurologic/Psychiatric: oriented x 3, other (seems to be able to move all limbs equally) Skin: normal color, warm/dry Results/Procedures: Labs Laboratory Tests 10/27/21 11:22: Glucometer 181H 10/27/21 17:47: Glucometer 149H 10/28/21 00:36: Glucometer 224H 10/28/21 05:10: White Blood Count 14.2H, Red Blood Count 3.60L, Hemoglobin 10.0L, Hematocrit 31L , Mean Corpuscular Volume 87, Mean Corpuscular Hemoglobin 28, Mean Corpuscular Hemoglobin Concent 32, Red Cell Distribution Width 16.8H, Platelet Count 264, Mean Platelet Volume 10.1, Immature Granulocyte % (Auto) 10, Neutrophils (%) (Auto) 62, Lymphocytes (%) (Auto) 20, Monocytes (%) (Auto) 6, Eosinophils (%) (Auto) 2, Basophils (%) (Auto) 0, Neutrophils # (Auto) 8.7H, Lymphocytes # (Auto) 2.8, Monocytes # (Auto) 0.9, Eosinophils # (Auto) 0.3, Basophils # (Auto) 0.0, Immature Granulocyte # (Auto) 1.5H, Sodium Level 134L, Potassium Level 3.7, Chloride Level 98, Carbon Dioxide Level 24, Anion Gap 12, Blood Urea Nitrogen 14, Creatinine 0.77, Estimat Glomerular Filtration Rate 74, BUN/Creatinine Ratio 18, Glucose Level 135H, Calcium Level 8.2L, Corrected Calcium 9.6, Total Bilirubin 0.4, Aspartate Amino Transf (AST/SGOT) 12, Alanine Aminotransferase (ALT/SGPT) 8, Alkaline Phosphatase 76, Total Protein 5.5L, Albumin 2.3L Microbiology 10/21/21 MRSA Screen - Final, Complete MRSA not isolated 10/21/21 Blood Culture - Final, Complete No growth 10/21/21 Urine Culture - Final, Complete Escherichia coli A/P: Assessment: Sepsis (preop) - s/p exploratory laparotomy, right hemicolectomy, ileal resection(100cm) with ileocolonic anastamosis on 10/22/21 - post-op resp failure has improved (now off vent) CAD - reports follows with cardiology at [facility] in [place] and has had cardiac stents placed in June 2021 Acute on chronic exacerbation of COPD H/o CHF - Echo on 10/22/21: LVEF 55-60%, dilated RA DM 2 HTN - uncontrolled HLD H/o frequent falls H/o frequent UTI's Plan: Complex management due to multiple comorbidities Continue ASA and Plavix Monitor labs Uncontrolled HTN - start BB - adjust as indicated Outpt cardiac f/u advised BERLIN GUTHRIE Oct 27, 2021 10:22
--- NOTE | 2021-10-27 10:47 | Physical Therapy Daily Note ---
PT Daily Note-Current Subjective Patient in recliner pre tx, agrees to LE exercises but says "I'm not getting out of this chair". Appearance Patient in recliner post tx with nurse call, phone, tray, all needs met. Mental Status Patient Orientation: Person, Place, Situation Attachments: Oxygen, Parker Catheter Transfers SCALE: Activities may be completed with or without assistive devices. 3-Sjzvwyfdmo-ohjiybu completes the activity by him/herself with no assistance from a helper. 5-Set-up or Clean-up Assistance-helper sets up or cleans up; patient completes activity. [place] assists only prior to or following the activity. 4-Supervision or Touching Assistance-helper provides verbal cues and/or touching/steadying and/or contact guard assistance as patient completes activity. Assistance may be provided throughout the activity or intermittently. 3-Partial/Moderate Assistance-helper does LESS THAN HALF the effort. [place] lifts, holds or supports trunk or limbs, but provides less than half the effort. 2-Substantial/Maximal Assistance-helper does MORE THAN HALF the effort. [place] lifts or holds trunk or limbs and provides more than half the effort. 9-Ibsxmhycn-uekobf does ALL the effort. Patient does none of the effort to complete the activity. Or, the assistance of 2 or more helpers is required for the patient to complete the activity. If activity was not attempted, code reason: 7-Patient Refused. 9-Not Applicable-not attempted and the patient did not perform the activity before the current illness, exacerbation or injury. 10-Not Attempted due to Environmental Limitations-(lack of equipment, weather restraints, etc.). 88-Not Attempted due to Medical Conditions or Safety Concerns. Exercises Supine Ex: Ankle pumps, Quad Set, Glut sets, Hip abd/add Supine Reps: 20 Seated Therapy Exercises: Long arc quads, Hip flexion Seated Reps: 20 Treatments LE strengthening Assessment Current Status: Poor Progress patient refuses to stand or ambulate PT Speed Runner Goals Speed Runner Goals PT [facility] Goals Time Frame: Nov 06, 2021 Roll Left & Right (QC): 6 Sit to Lying (QC): 6 Lying-Sitting on Side/Bed(QC): 6 Sit to Stand (QC): 6 Chair/Med-fu-Yqlvz Xfer(QC): 6 Toilet Transfer (QC): 6 Walk 10 feet (QC): 6 Walk 50ft with 2 Turns (QC): 6 PT Plan Problem List Problem List: Activity Tolerance, Functional Strength, Safety, Balance, Gait, Transfer, Bed Mobility, ROM Treatment/Plan Treatment Plan: Continue Plan of Care Treatment Plan: Bed Mobility, Education, Functional Activity Virgen, Functional Strength, Gait, Safety, Therapeutic Exercise, Transfers Treatment Duration: Nov 06, 2021 Frequency: 6 times per week Estimated Hrs Per Day: .5 hour per day Patient and/or Family Agrees t: Yes Safety Risks/Education Patient Education: Correct Positioning, Safety Issues Teaching Recipient: Patient Teaching Methods: Demonstration, Discussion Response to Teaching: Reinforcement Needed Time/GCodes Time In: 1036 Time Out: 1046 Total Billed Treatment Time: 10 Total Billed Treatment 1 visit EX ELVIS CHO PT Oct 27, 2021 10:47
--- NOTE | 2021-10-27 11:18 | Occupational Ther Daily Note ---
OT Current Status-Daily Note Subjective Pt seated in recliner, agreeable to OT tx. Mental Status/Objective Patient Orientation: Person, Place, Situation Attachments: Oxygen ADL-Treatment Therapy Code Descriptions/Definitions Functional [place] Measure: 0=Not Assessed/NA 4=Minimal Assistance 1=Total Assistance 5=Supervision or Setup 2=Maximal Assistance 6=Modified [place] 3=Moderate Assistance 7=Complete IndependenceSCALE: Activities may be completed with or without assistive devices. 8-Nsqlqlvyyb-qbffhhi completes the activity by him/herself with no assistance from a helper. 5-Set-up or Clean-up Assistance-helper sets up or cleans up; patient completes activity. [place] assists only prior to or following the activity. 4-Supervision or Touching Assistance-helper provides verbal cues and/or touching /steadying and/or contact guard assistance as patient completes activity. Assistance may be provided throughout the activity or intermittently. 3-Partial/Moderate Assistance-helper does LESS THAN HALF the effort. [place] lifts, holds or supports trunk or limbs, but provides less than half the effort. 2-Substantial/Maximal Assistance-helper does MORE THAN HALF the effort. [place] lifts or holds trunk or limbs and provides more than half the effort. 9-Tbwxdwyxx-ozgzpk does ALL the effort. Patient does none of the effort to complete the activity. Or, the assistance of 2 or more helpers is required for the patient to complete the activity. If activity was not attempted, code reason: 7-Patient Refused. 9-Not Applicable-not attempted and the patient did not perform the activity before the current illness, exacerbation or injury. 10-Not Attempted due to Environmental Limitations-(lack of equipment, weather restraints, etc.). 88-Not Attempted due to Medical Conditions or Safety Concerns. Eating (QC): 6 (Per pt report) Oral Hygiene (QC): 5 (set up) Shower/Bathe Self (QC): 7 (Pt declined task.) Upper Body Dressing (QC): 4 (Per pt report, she is able to doff/don shirt. Refu sed task. ) On/Off Footwear: 3 (Pt able to don RLE gripper sock, assist L. Pt only wears slip on shoes at home and would be able to complete footwear.) Toileting Hygiene (QC): 1 (catheter.) Other Treatment Pt seated in recliner, agreeable to OT Tx. Pt agreeable to attempting to walk into bathroom. Pt donned footwear at recliner. Pt attempted sit to stand a couple of times, max A provided by OT but pt unable to stand at this time. Pt indicates her recliner is different at home and she feels like she would be able to do it in her own environment. Pt educated on importance of being able to complete sit to stand by herself in order to go home, as she needs to be able to get off of the toilet by herself. Pt completed oral care seated at tray table. Post tx, pt in recliner, call light in reach and all needs met. Education OT Patient Education: Correct positioning, Energy conservation, Exercise program, Modified ADL techniques, Progress toward Goal/Update tx plan, Purpose of tx/functional activities, Rehab process Teaching Recipient: Patient Teaching Methods: Discussion OT Fpc Goals Dry Pan Charger Goals Time Frame: Nov 05, 2021 Eating (QC): 6 Oral Hygiene (QC): 6 Toileting Hygiene (QC): 6 Shower/Bathe Self (QC): 6 Upper Body Dressing (QC): 6 Lower Body Dressing (QC): 6 On/Off Footwear (QC): 6 Additional Goals: 1-Demonstrate ADL Tasks, 2-Verbalize Understanding, 3- ImproveStrength/Virgen 1=Demonstrate adherence to instructed precautions during ADL tasks. 2=Patient will verbalize/demonstrate understanding of assistive devices/modifications for ADL. 3=Patient will improve strength/tolerance for activity to enable patient to perform ADL's. OT Education/Plan Problem List/Assessment Assessment: Decreased Activ Tolerance, Decreased UE Strength, Impaired Funct Balance, Impaired I ADL's, Impaired Self-Care Skills Discharge Recommendations Plan/Recommendations: Continue POC Treatment Plan/Plan of Care Patient would benefit from OT for education, treatment and training to promote independence in ADL's, mobility, safety and/or upper extremity function for ADL's. Plan of Care: ADL Retraining, Functional Mobility, UE Funct Exercise/Act Treatment Duration: Nov 05, 2021 Frequency: 3 times per week (3-5 times per week) Rehab Potential: Fair Time/GCodes Start Time: 10:50 Stop Time: 11:03 Total Time Billed (hr/min): 13 Billed Treatment Time 1, ADL PATT BAHENA OT Oct 27, 2021 11:18
--- NOTE | 2021-10-27 15:10 | Progress Note ---
Subjective Date Seen by a Provider: Oct 27, 2021 Time Seen by a Provider: 15:00 Subjective/Events-last exam doing ok. tolerating dys3 diet. passing flatus. still physically weak. Focused Exam Time of Focused Exam: 08:30 Objective Exam Vital Signs Date Time Temp Pulse Resp B/P (MAP) Pulse Ox O2 Delivery O2 Flow Rate FiO2 10/27/21 12:00 36.2 96 18 138/73 (94) 96 Nasal Cannula 3.00 10/27/21 08:15 97 Nasal Cannula 3.50 10/27/21 08:00 36.2 95 18 169/84 (112) 97 Nasal Cannula 3.00 10/27/21 07:38 96 Nasal Cannula 3.00 10/27/21 04:19 36.0 83 18 154/77 (102) 97 Nasal Cannula 3.00 10/27/21 03:11 94 Nasal Cannula 3.00 10/27/21 00:00 36.6 86 17 110/70 (83) 92 Nasal Cannula 3.00 10/26/21 21:00 Nasal Cannula 3.00 10/26/21 19:54 36.6 78 18 150/70 (96) 96 Nasal Cannula 3.00 10/26/21 15:42 36.4 100 20 111/72 (85) 94 Nasal Cannula 3.00 10/26/21 15:09 94 Nasal Cannula 3.00 I & O 10/27/21 06:59 Intake Total 4792.5 ml Output Total 1630 ml Balance 3162.5 ml Capillary Refill : Less Than 3 SecondsLess Than 3 Seconds General Appearance: No Apparent Distress HEENT: PERRL/EOMI Neck: Full Range of Motion Respiratory: Chest Non Tender, Decreased Breath Sounds, Wheezing Cardiovascular: Regular Rate, Rhythm Gastrointestinal: normal bowel sounds, soft, tenderness Extremity: Normal Capillary Refill Neurologic/Psychiatric: Alert, Oriented x3 Skin: Normal Color Lymphatic: No Adenopathy Results Lab Laboratory Tests 10/26/21 18:37: Glucometer 251H 10/26/21 23:14: Glucometer 110 10/27/21 04:35: White Blood Count 12.6H, Red Blood Count 3.14L, Hemoglobin 9.0L, Hematocrit 28L, Mean Corpuscular Volume 89, Mean Corpuscular Hemoglobin 29, Mean Corpuscular Hemoglobin Concent 32, Red Cell Distribution Width 17.0H, Platelet Count 199, Mean Platelet Volume 10.3, Immature Granulocyte % (Auto) 6, Neutrophils (%) (Auto) 68, Lymphocytes (%) (Auto) 17, Monocytes (%) (Auto) 7, Eosinophils (%) (Auto) 2, Basophils (%) (Auto) 0, Neutrophils # (Auto) 8.5H, Lymphocytes # (Auto) 2.1, Monocytes # (Auto) 0.9, Eosinophils # (Auto) 0.3, Basophils # (Auto) 0.0, Immature Granulocyte # (Auto) 0.8H 10/27/21 05:54: Glucometer 119H 10/27/21 11:22: Glucometer 181H Microbiology 10/21/21 MRSA Screen - Final, Complete MRSA not isolated 10/21/21 Blood Culture - Final, Complete No growth 10/21/21 Urine Culture - Final, Complete Escherichia coli Assessment/Plan Assessment/Plan Assess & Plan/Chief Complaint s/p expl laparotomy and SBR and RHC. cont lovenox. increase ambulation. cont abx. advance to dys 3 diet. MONICA FERNANDEZ MD Oct 27, 2021 15:10
--- NOTE | 2021-10-27 15:39 | Progress Note - Cardiology ---
Cardiology SOAP Progress Note Subjective: No cp or palp or syncope No shortness of breath at rest Gen malaise and weakness present No n/v/d Objective: I&O/Vital Signs 10/27/21 10/27/21 10/27/21 10/27/21 04:19 07:38 08:00 08:15 Temp 36.0 36.2 Pulse 83 95 Resp 18 18 B/P (MAP) 154/77 (102) 169/84 (112) Pulse Ox 97 96 97 97 O2 Delivery Nasal Cannula Nasal Cannula Nasal Cannula Nasal Cannula O2 Flow Rate 3.00 3.00 3.00 3.50 10/27/21 10/27/21 12:00 15:25 Temp 36.2 Pulse 96 Resp 18 B/P (MAP) 138/73 (94) Pulse Ox 96 99 O2 Delivery Nasal Cannula Nasal Cannula O2 Flow Rate 3.00 3.00 10/27/21 00:00 Intake Total 2470 ml Output Total 1280 ml Balance 1190 ml Constitutional: AAO x 3, other (off vent) Respiratory: No accessory muscle use, No respiratory distress; chest expansion is symmetric, chest is bilaterally symmetric, rhonchi (scattered), other (coarse breathsounds throughout) Cardiovascular: regular rate-rhythm; No JVD; S1 and S2 Gastrointestional: other (post-op) Extremities: other (mod bilat LE swelling) Neurologic/Psychiatric: oriented x 3, other (seems to be able to move all limbs equally) Skin: normal color, warm/dry Results/Procedures: Labs Laboratory Tests 10/26/21 18:37: Glucometer 251H 10/26/21 23:14: Glucometer 110 10/27/21 04:35: White Blood Count 12.6H, Red Blood Count 3.14L, Hemoglobin 9.0L, Hematocrit 28L, Mean Corpuscular Volume 89, Mean Corpuscular Hemoglobin 29, Mean Corpuscular Hemoglobin Concent 32, Red Cell Distribution Width 17.0H, Platelet Count 199, Mean Platelet Volume 10.3, Immature Granulocyte % (Auto) 6, Neutrophils (%) (Auto) 68, Lymphocytes (%) (Auto) 17, Monocytes (%) (Auto) 7, Eosinophils (%) (Auto) 2, Basophils (%) (Auto) 0, Neutrophils # (Auto) 8.5H, Lymphocytes # (Auto) 2.1, Monocytes # (Auto) 0.9, Eosinophils # (Auto) 0.3, Basophils # (Auto) 0.0, Immature Granulocyte # (Auto) 0.8H 10/27/21 05:54: Glucometer 119H 10/27/21 11:22: Glucometer 181H Microbiology 10/21/21 MRSA Screen - Final, Complete MRSA not isolated 10/21/21 Blood Culture - Final, Complete No growth 10/21/21 Urine Culture - Final, Complete Escherichia coli Laboratory Tests 10/26/21 04:36 10/27/21 04:35 A/P: Assessment: Sepsis (preop) - s/p exploratory laparotomy, right hemicolectomy, ileal resection(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 Continue antihtn regimen Outpt cardiac f/u advised MIRTA AL MD FACP FAC CCDS Oct 27, 2021 15:39
[2021-10-27] MEDS: ALPRAZolam 0.5 MG (XANAX) TAB PO PRN (19:04)
--- NOTE | 2021-10-27 19:55 | Progress Note ---
Subjective Subjective/Events-last exam Patient feeling much better. She is tolerating diet. Had a small BM this AM. Passing flatus. Up to chair this AM. Review of Systems Pulmonary: No Dyspnea, No Cough Cardiovascular: Edema; No: Chest Pain, Palpitations Gastrointestinal: Abdominal Pain (incisional pain); No: Nausea, Vomiting Neurological: Weakness, Incoordination Focused Exam Time of Focused Exam: 08:30 Objective Exam Last Set of Vital Signs Vital Signs Date Time Temp Pulse Resp B/P (MAP) Pulse Ox O2 Delivery O2 Flow Rate FiO2 10/27/21 19:07 36.2 87 18 148/75 (99) 97 Nasal Cannula 3.00 10/23/21 09:39 35 Capillary Refill : Less Than 3 SecondsLess Than 3 Seconds I&O Intake and Output 10/27/21 00:00 Intake Total 4942.5 ml Output Total 1620 ml Balance 3322.5 ml Intake Oral 1160 ml IV Total 3782.5 ml Output Urine Total 1155 ml Drainage Total 465 ml General: Alert, Oriented X3, Cooperative, No Acute Distress Lungs: Clear to Auscultation, Normal Air Movement Heart: Regular Rate, No Murmurs Abdomen: Normal Bowel Sounds, Soft, Other (mild incisional ttp, DEIRDRE drain still present) Extremities: Other (2+ pitting edema) Neuro: Normal Speech, Sensation Intact Results/Procedures Lab Laboratory Tests 10/26/21 23:14: Glucometer 110 10/27/21 04:35: White Blood Count 12.6H, Red Blood Count 3.14L, Hemoglobin 9.0L, Hematocrit 28L, Mean Corpuscular Volume 89, Mean Corpuscular Hemoglobin 29, Mean Corpuscular Hemoglobin Concent 32, Red Cell Distribution Width 17.0H, Platelet Count 199, Mean Platelet Volume 10.3, Immature Granulocyte % (Auto) 6, Neutrophils (%) (Auto) 68, Lymphocytes (%) (Auto) 17, Monocytes (%) (Auto) 7, Eosinophils (%) (Auto) 2, Basophils (%) (Auto) 0, Neutrophils # (Auto) 8.5H, Lymphocytes # (Auto) 2.1, Monocytes # (Auto) 0.9, Eosinophils # (Auto) 0.3, Basophils # (Auto) 0.0, Immature Granulocyte # (Auto) 0.8H 10/27/21 05:54: Glucometer 119H 10/27/21 11:22: Glucometer 181H 10/27/21 17:47: Glucometer 149H Microbiology 10/21/21 MRSA Screen - Final, Complete MRSA not isolated 10/21/21 Blood Culture - Final, Complete No growth 10/21/21 Urine Culture - Final, Complete Escherichia coli Radiology NAME: [facility]A RIOS [facility] REC#: [id number] PT STATUS: REG ER : 1950 PHYSICIAN: EDEN SIMMONS DO ADMIT DATE: 10/21/21/ER FS Signed Date of Exam:10/21/21 CT ANNE CHEST/NOANG ABD-PELV W EXAMINATION: CT angiography of the chest, CT of the abdomen and pelvis. TECHNIQUE: Contrast enhanced thin section helical images were obtained through the chest, abdomen and pelvis with intravenous contrast timed for the optimal opacification of the arterial structures of the chest per CTA protocol. Post-processing, reconstructions and interpretation of angiographic images of the vessels was performed. 3D MIP reconstructions were performed and reviewed. All CT scans use one or more of the following dose optimizing techniques: Automated exposure control, MA and/or KvP adjustment based on a patient size and exam type, or iterative reconstruction. HISTORY: SOA, hypoxia. COMPARISON: None available. FINDINGS: Vascular: No filling defects are seen within the visualized pulmonary arteries. Evaluation of the distal pulmonary arteries is limited secondary to respiratory motion and consolidation. There are vascular calcifications of the aorta and coronary vessels without aneurysm. Thyroid: The thyroid is normal. Mediastinum: Heart size is normal without significant pericardial effusion. No suspicious lymphadenopathy. Lungs and airways: There are patchy ground-glass opacities seen throughout both lungs. Trace bilateral pleural effusions with adjacent atelectasis or consolidation. No pneumothorax. The airways are normal. Solid organs: The liver is normal without focal lesion. The gallbladder is surgically absent. There is no biliary ductal dilation. Pancreas is normal. Spleen is normal. Adrenal glands are normal. The kidneys are normal without hydronephrosis. Bowel: The stomach and small bowel are normal without obstruction. There is diffuse wall thickening and inflammatory stranding of the colon. There is more prominent inflammatory stranding seen near the cecum with evidence of presumed air within the venous plexus versus free air. Peritoneum: No free fluid or loculated fluid collection. No suspicious lymphadenopathy. Vasculature: Calcification of the aorta without aneurysm. Musculoskeletal: Degenerative changes of the spine without suspicious osseous lesion or compression fracture. Pelvis: The uterus and adnexa are normal. Urinary bladder is decompressed with a Parker catheter. IMPRESSION: 1. Diffuse wall thickening of the colon with greatest area of inflammatory stranding seen near the cecum. Findings are concerning for an infectious or inflammatory colitis. There are findings suggestive of venous air adjacent to the cecum, less likely free air. 2. Patchy ground-glass opacities throughout both lungs which can be seen with pulmonary edema or atypical infection. Dictated by: Dictated on workstation # [id number] Dict: 10/21/21 1302 Trans: 10/21/21 1317 [id number] Interpreted by: LILIANA ANGELO DO Electronically signed by: LILIANA ANGELO DO 10/21/21 1317 Assessment/Plan Assessment/Plan (1) Severe sepsis Status: Resolved Assessment & Plan: 10/25: Resolved patient is doing well on the floor, HDS (2) Acute respiratory failure with hypoxia Status: Resolved Assessment & Plan: 10/25: Continue MAT protocol, Will continue to titrate oxygen as patient tolerates, encouraged sitting up in chair and ambulation to help with bowel recovery 10/27: Will continue to titrate oxygen as tolerated. Home O2 study ordered for AM (3) Acute ischemic colitis Status: Acute Assessment & Plan: 10/25: S/p Ex lap with partial bowel resection, tolerated CLD 10/26: Passing gas, pain improved 10/27: Tolerating PO diet, small BM this AM (4) Pneumonia Status: Acute Qualifiers: Qualified Codes: J18.9 - Pneumonia, unspecified organism (5) UTI (urinary tract infection) Status: Acute Qualifiers: Qualified Codes: N39.0 - Urinary tract infection, site not specified (6) Hyponatremia Status: Acute Assessment & Plan: 10/25: Continues to trend up, will continue to monitor daily (7) Physical debility Status: Acute Assessment & Plan: 10/26: IRF consult placed, patient will no longer have summer child caregiver at home since broke hip and is hospitalized. 10/27: Patient would like to go to daughter's house with HH rather then rehab if it is out of the hospital TITI KELLY MD Oct 27, 2021 19:55
[2021-10-27] MEDS: AMITRIPTYLINE 25 MG (ELAVIL) TAB PO SCH (20:51)
[2021-10-28] MEDS: MEROPENEM 500 MG in NS (IVPB) 100 ML IV SCH ×3 (00:31→10:32)
[2021-10-28] MEDS: inSUlin ASPART (NovoLOG) 1 UNIT/0.01 ML (CHARGE PER UNIT) SC SCH ×5 (00:39→23:36)
[2021-10-28] MEDS: RT-ALBUTEROL/IPRATROPIUM 3 ML (DUONEB) VIAL INH SCH ×4 (03:14→22:10)
[2021-10-28 03:28] VITALS: BP 146/80
[2021-10-28 05:21] LABS: BASOPHILS % (AUTO) 0 % (0-10); EOSINOPHILS # (AUTO) 0.3 10^3/uL (0.0-0.3); EOSINOPHILS % (AUTO) 2 % (0-10); HEMATOCRIT 31 % (35-52); LYMPHOCYTES # (AUTO) 2.8 10^3/uL (1.0-4.0); LYMPHOCYTES % (AUTO) 20 % (12-44); MEAN CORPUSCULAR HEMOGLOBIN 28 pg (25-34); MEAN CORPUSCULAR HGB CONC 32 g/dL (32-36); MEAN CORPUSCULAR VOLUME 87 fL (80-99); MEAN PLATELET VOLUME 10.1 fL (9.0-12.2); MONOCYTES # (AUTO) 0.9 10^3/uL (0.0-1.0); MONOCYTES % (AUTO) 6 % (0-12); NEUTROPHILS # (AUTO) 8.7 10^3/uL (1.8-7.8); NEUTROPHILS % (AUTO) 62 % (42-75); PLATELET COUNT 264 10^3/uL (130-400); WHITE BLOOD COUNT 14.2 10^3/uL (4.3-11.0)
[2021-10-28] MEDS: LACTOBACILLUS Acidoph/Bulgar 1 GM (LACTINEX) PACKET PO SCH ×4 (05:32→19:27)
[2021-10-28 05:35] LABS: ALBUMIN 2.3 GM/DL (3.2-4.5); POTASSIUM 3.7 MMOL/L (3.6-5.0)
[2021-10-28 05:37] LABS: CALCIUM 8.2 MG/DL (8.5-10.1)
[2021-10-28 05:38] LABS: TOTAL PROTEIN 5.5 GM/DL (6.4-8.2)
[2021-10-28 05:40] LABS: BILIRUBIN,TOTAL 0.4 MG/DL (0.1-1.0)
[2021-10-28 05:41] LABS: CREATININE SERUM 0.77 MG/DL (0.60-1.30)
[2021-10-28 08:00] VITALS: BP 137/76
[2021-10-28] MEDS: ASPIRIN 81 MG CHEW (CHILDREN'S ASA) PO SCH (08:31)
[2021-10-28] MEDS: PANTOPRAZOLE 40 MG (PROTONIX) TAB PO SCH ×2 (08:31→19:27)
[2021-10-28] MEDS: CLOPIDOGREL 75 MG (PLAVIX) TABLET PO SCH (08:31)
[2021-10-28] MEDS: ENOXAPARIN 40 MG/0.4 ML (LOVENOX) SYR SC SCH ×2 (08:31→19:27)
--- NOTE | 2021-10-28 08:46 | Occupational Ther Daily Note ---
OT Current Status-Daily Note Subjective Pt laying supine in bed washing face, alert. Pt reported stiffness in legs, no c/o pain. Pt agrees to therapy. Mental Status/Objective Patient Orientation: Person, Place, Time, Situation Attachments: Drains, IV, Oxygen ADL-Treatment Pt supine<->EOB independent using bed rail. Pt donned socks while seated EOB, extra time given due to pt complaining of stiffness in L upper LE. After session, pt supine in bed with call light/phone within reach. All needs met in room. Therapy Code Descriptions/Definitions Functional [place] Measure: 0=Not Assessed/NA 4=Minimal Assistance 1=Total Assistance 5=Supervision or Setup 2=Maximal Assistance 6=Modified [place] 3=Moderate Assistance 7=Complete IndependenceSCALE: Activities may be completed with or without assistive devices. 3-Nrilzdaehf-jxnipwa completes the activity by him/herself with no assistance from a helper. 5-Set-up or Clean-up Assistance-helper sets up or cleans up; patient completes activity. [place] assists only prior to or following the activity. 4-Supervision or Touching Assistance-helper provides verbal cues and/or touching/steadying and/or contact guard assistance as patient completes activity. Assistance may be provided throughout the activity or intermittently. 3-Partial/Moderate Assistance-helper does LESS THAN HALF the effort. [place] lifts, holds or supports trunk or limbs, but provides less than half the effort. 2-Substantial/Maximal Assistance-helper does MORE THAN HALF the effort. [place] lifts or holds trunk or limbs and provides more than half the effort. 9-Gqsfcqftw-phnlil does ALL the effort. Patient does none of the effort to complete the activity. Or, the assistance of 2 or more helpers is required for the patient to complete the activity. If activity was not attempted, code reason: 7-Patient Refused. 9-Not Applicable-not attempted and the patient did not perform the activity before the current illness, exacerbation or injury. 10-Not Attempted due to Environmental Limitations-(lack of equipment, weather restraints, etc.). 88-Not Attempted due to Medical Conditions or Safety Concerns. Eating (QC): 6 (Independent, pt able to open containers and use regular utensils.) Oral Hygiene (QC): 7 (Pt declined.) On/Off Footwear: 5 OT Precision Filer Hand Goals Alf Goals Time Frame: Nov 05, 2021 Eating (QC): 6 Oral Hygiene (QC): 6 Toileting Hygiene (QC): 6 Shower/Bathe Self (QC): 6 Upper Body Dressing (QC): 6 Lower Body Dressing (QC): 6 On/Off Footwear (QC): 6 Additional Goals: 1-Demonstrate ADL Tasks, 2-Verbalize Understanding, 3- ImproveStrength/Virgen 1=Demonstrate adherence to instructed precautions during ADL tasks. 2=Patient will verbalize/demonstrate understanding of assistive devices/modifications for ADL. 3=Patient will improve strength/tolerance for activity to enable patient to perform ADL's. OT Education/Plan Problem List/Assessment Assessment: Decreased Activ Tolerance, Impaired Bed Mobility, Impaired Self- Care Skills Discharge Recommendations Plan/Recommendations: Continue POC Treatment Plan/Plan of Care Patient would benefit from OT for education, treatment and training to promote independence in ADL's, mobility, safety and/or upper extremity function for ADL's. Plan of Care: ADL Retraining, Functional Mobility, UE Funct Exercise/Act Treatment Duration: Nov 05, 2021 Frequency: 3 times per week (3-5 times per week) Rehab Potential: Fair Time/GCodes Start Time: 08:26 Stop Time: 08:39 Total Time Billed (hr/min): 13 Billed Treatment Time 1 Visit ADL (13 min) ANDREW CHEEMA Oct 28, 2021 08:45
--- NOTE | 2021-10-28 09:30 | Physical Therapy Daily Note ---
PT Daily Note-Current Subjective Pt. in bed, agrees to Rx but adamant that she will not walk any real distance with a FWW. Pt. has 3 WW at home with hand brakes. This SCHOOL LUNCH MONITOR requested pt. have her family bring that device to hospital with her name on it. Pt. agrees to call her family to try to have it brought in. Pt. agrees to do short walks in the room . Pt. states " I cant get anyone here to understand that I only walk around inside my home, short distances" Pain Location: No Pain Reported Mental Status Patient Orientation: Normal For Age Attachments: Oxygen (3.5 L) Transfers SCALE: Activities may be completed with or without assistive devices. 9-Sddxanhhcp-bpprspa completes the activity by him/herself with no assistance from a helper. 5-Set-up or Clean-up Assistance-helper sets up or cleans up; patient completes activity. [place] assists only prior to or following the activity. 4-Supervision or Touching Assistance-helper provides verbal cues and/or touching /steadying and/or contact guard assistance as patient completes activity. Assistance may be provided throughout the activity or intermittently. 3-Partial/Moderate Assistance-helper does LESS THAN HALF the effort. [place] lifts, holds or supports trunk or limbs, but provides less than half the effort. 2-Substantial/Maximal Assistance-helper does MORE THAN HALF the effort. [place] lifts or holds trunk or limbs and provides more than half the effort. 6-Kbfxecrpg-uwkpvx does ALL the effort. Patient does none of the effort to complete the activity. Or, the assistance of 2 or more helpers is required for the patient to complete the activity. If activity was not attempted, code reason: 7-Patient Refused. 9-Not Applicable-not attempted and the patient did not perform the activity before the current illness, exacerbation or injury. 10-Not Attempted due to Environmental Limitations-(lack of equipment, weather restraints, etc.). 88-Not Attempted due to Medical Conditions or Safety Concerns. Roll Left & Right (QC): 5 Lying to Sitting/Side of Bed(Q: 4 Sit to Stand (QC): 4 Chair/Rno-rx-Xshyt Xfer(QC): 4 pt. was educated in sup to side to sit using UEs on rails to push up as well as higher sitting surfaces to make sit to stand easier. Pt. needs steadying to min assist for these TRFs Gait Training Does the Patient Walk?: Yes Walk 10 feet (QC): 4 Gait Persons Needed: 1 Gait Assistive Device: FWW 15ft, 10 ft FWW CGA, slow, with assist to manage O2 tubing, pt. fatigues and is SOB recovering quickly with rest Exercises Supine Ex: Bridging, Ankle pumps, Quad Set, Rolling, Heel Slides, Scooting, Straight leg raise, Hip abd/add Supine Reps: 12 Assessment Current Status: Good Progress cooperative, wants her own FWW, very fearful of FWW, hopeful her family will bring her FWW PT Associate Professor Of Automation Goals Senior Living Goals PT Senior Living Goals Time Frame: Nov 06, 2021 Roll Left & Right (QC): 6 Sit to Lying (QC): 6 Lying-Sitting on Side/Bed(QC): 6 Sit to Stand (QC): 6 Chair/Zac-gz-Axqqp Xfer(QC): 6 Toilet Transfer (QC): 6 Walk 10 feet (QC): 6 Walk 50ft with 2 Turns (QC): 6 PT Plan Treatment/Plan Treatment Plan: Continue Plan of Care Treatment Plan: Bed Mobility, Education, Functional Activity Virgen, Functional Strength, Gait, Safety, Therapeutic Exercise, Transfers Treatment Duration: Nov 06, 2021 Frequency: 6 times per week Estimated Hrs Per Day: .5 hour per day Patient and/or Family Agrees t: Yes Safety Risks/Education Patient Education: Gait Training, Transfer Techniques, Reviewed Precautions, Correct Positioning, Disease Process, Safety Issues Teaching Recipient: Patient Teaching Methods: Demonstration, Discussion Response to Teaching: Verbalize Understanding, Return Demonstration, Reinforcement Needed Time/GCodes Time In: 905 Time Out: 930 Total Billed Treatment Time: 25 Total Billed Treatment 1,GT10m,EX15m BLANCHE [employer]ORE [employer] Oct 28, 2021 09:30
--- NOTE | 2021-10-28 09:32 | Progress Note - Cardiology ---
Cardiology SOAP Progress Note Subjective: Sitting up in recliner at the bedside No c/o CP or SOB Objective: I&O/Vital Signs 10/27/21 10/27/21 10/27/21 10/28/21 21:51 22:35 23:00 02:45 Temp 36.2 36.0 Pulse 87 81 Resp 20 B/P (MAP) 127/74 (91) Pulse Ox 93 97 93 94 O2 Delivery Nasal Cannula Nasal Cannula Nasal Cannula O2 Flow Rate 3.00 3.00 3.00 10/28/21 10/28/21 10/28/21 03:28 08:00 08:00 Temp 36.6 36.0 Pulse 81 68 Resp 20 18 B/P (MAP) 146/80 (102) 137/76 (96) Pulse Ox 97 98 O2 Delivery Nasal Cannula Nasal Cannula Nasal Cannula O2 Flow Rate 3.00 3.00 3.00 10/28/21 00:00 Intake Total 760 ml Output Total 1180 ml Balance -420 ml Constitutional: AAO x 3, other (off vent) Respiratory: No accessory muscle use, No respiratory distress; chest expansion is symmetric, chest is bilaterally symmetric, rhonchi (scattered), other (coarse breathsounds throughout) Cardiovascular: regular rate-rhythm; No JVD; S1 and S2 Gastrointestional: other (post-op) Extremities: other (mod bilat LE swelling) Neurologic/Psychiatric: oriented x 3, other (seems to be able to move all limbs equally) Skin: normal color, warm/dry Results/Procedures: Labs Laboratory Tests 10/27/21 11:22: Glucometer 181H 10/27/21 17:47: Glucometer 149H 10/28/21 00:36: Glucometer 224H 10/28/21 05:10: White Blood Count 14.2H, Red Blood Count 3.60L, Hemoglobin 10.0L, Hematocrit 31L , Mean Corpuscular Volume 87, Mean Corpuscular Hemoglobin 28, Mean Corpuscular Hemoglobin Concent 32, Red Cell Distribution Width 16.8H, Platelet Count 264, Mean Platelet Volume 10.1, Immature Granulocyte % (Auto) 10, Neutrophils (%) (Auto) 62, Lymphocytes (%) (Auto) 20, Monocytes (%) (Auto) 6, Eosinophils (%) (Auto) 2, Basophils (%) (Auto) 0, Neutrophils # (Auto) 8.7H, Lymphocytes # (Auto) 2.8, Monocytes # (Auto) 0.9, Eosinophils # (Auto) 0.3, Basophils # (Auto) 0.0, Immature Granulocyte # (Auto) 1.5H, Sodium Level 134L, Potassium Level 3.7, Chloride Level 98, Carbon Dioxide Level 24, Anion Gap 12, Blood Urea Nitrogen 14, Creatinine 0.77, Estimat Glomerular Filtration Rate 74, BUN/Creatinine Ratio 18, Glucose Level 135H, Calcium Level 8.2L, Corrected Calcium 9.6, Total Bilirubin 0.4, Aspartate Amino Transf (AST/SGOT) 12, Alanine Aminotransferase (ALT/SGPT) 8, Alkaline Phosphatase 76, Total Protein 5.5L, Albumin 2.3L Microbiology 10/21/21 MRSA Screen - Final, Complete MRSA not isolated 10/21/21 Blood Culture - Final, Complete No growth 10/21/21 Urine Culture - Final, Complete Escherichia coli A/P: Assessment: Sepsis (preop) - s/p exploratory laparotomy, right hemicolectomy, ileal resection(100cm) with ileocolonic anastamosis on 10/22/21 - post-op resp failure has improved (now off vent) CAD - reports follows with cardiology at [facility] in [place] and has had cardiac stents placed in June 2021 Acute on chronic exacerbation of COPD H/o CHF - Echo on 10/22/21: LVEF 55-60%, dilated RA DM 2 HTN - uncontrolled HLD H/o frequent falls H/o frequent UTI's Plan: Continue ASA and Plavix Monitor labs BP better. Continue antihtn regimen Outpt cardiac f/u advised BERLIN GUTHRIE Oct 28, 2021 09:32
[2021-10-28 12:00] VITALS: BP 144/81
[2021-10-28 16:00] VITALS: BP 124/64
--- NOTE | 2021-10-28 16:07 | Progress Note ---
Subjective Subjective/Events-last exam Patient states that she is feeling better. Tolerating PO diet. She is still requiring 2 person assist. Review of Systems Pulmonary: Dyspnea, Cough Cardiovascular: No: Chest Pain, Palpitations, Edema Gastrointestinal: No: Nausea, Vomiting, Abdominal Pain, Diarrhea, Constipation Genitourinary: No Dysuria, No Frequency, No Incontinence Neurological: Weakness, Incoordination Focused Exam Time of Focused Exam: 08:30 Objective Exam Last Set of Vital Signs Vital Signs Date Time Temp Pulse Resp B/P (MAP) Pulse Ox O2 Delivery O2 Flow Rate FiO2 10/28/21 15:25 100 Nasal Cannula 3.00 10/28/21 12:00 36.2 75 18 144/81 (102) 10/23/21 09:39 35 Capillary Refill : Less Than 3 SecondsLess Than 3 Seconds I&O Intake and Output 10/28/21 00:00 Intake Total 860 ml Output Total 1530 ml Balance -670 ml Intake Oral 860 ml IV Total 0 ml Output Urine Total 955 ml Drainage Total 575 ml # Bowel Movements 1 General: Alert, Oriented X3, No Acute Distress HEENT: Mucous Memb Moist/[place] Lungs: Clear to Auscultation, Normal Air Movement Heart: Regular Rate, No Murmurs Abdomen: Normal Bowel Sounds, Soft, No Tenderness, No Masses Extremities: Other (2+ pitting edema bilaterally) Skin: Other (brusing on UE and LE) Neuro: Normal Speech, Cranial Nerves 3-12 NL Results/Procedures Lab Laboratory Tests 10/27/21 17:47: Glucometer 149H 10/28/21 00:36: Glucometer 224H 10/28/21 05:10: White Blood Count 14.2H, Red Blood Count 3.60L, Hemoglobin 10.0L, Hematocrit 31L , Mean Corpuscular Volume 87, Mean Corpuscular Hemoglobin 28, Mean Corpuscular H emoglobin Concent 32, Red Cell Distribution Width 16.8H, Platelet Count 264, Mean Platelet Volume 10.1, Immature Granulocyte % (Auto) 10, Neutrophils (%) (Auto) 62, Lymphocytes (%) (Auto) 20, Monocytes (%) (Auto) 6, Eosinophils (%) (Auto) 2, Basophils (%) (Auto) 0, Neutrophils # (Auto) 8.7H, Lymphocytes # (Auto) 2.8, Monocytes # (Auto) 0.9, Eosinophils # (Auto) 0.3, Basophils # (Auto) 0.0, Immature Granulocyte # (Auto) 1.5H, Sodium Level 134L, Potassium Level 3.7, Chloride Level 98, Carbon Dioxide Level 24, Anion Gap 12, Blood Urea Nitrogen 14, Creatinine 0.77, Estimat Glomerular Filtration Rate 74, BUN/Creatinine Ratio 18, Glucose Level 135H, Calcium Level 8.2L, Corrected Calcium 9.6, Total Bilirubin 0.4, Aspartate Amino Transf (AST/SGOT) 12, Alanine Aminotransferase (ALT/SGPT) 8, Alkaline Phosphatase 76, Total Protein 5.5L, Albumin 2.3L 10/28/21 11:27: Glucometer 153H 10/28/21 15:38: Glucometer 178H Microbiology 10/21/21 MRSA Screen - Final, Complete MRSA not isolated 10/21/21 Blood Culture - Final, Complete No growth 10/21/21 Urine Culture - Final, Complete Escherichia coli Radiology NAME: SOUMYA RIOS [facility] REC#: [id number] PT STATUS: REG ER : 1950 PHYSICIAN: EDEN SIMMONS DO ADMIT DATE: 10/21/21/ER FS Signed Date of Exam:10/21/21 CT ANNE CHEST/NOANG ABD-PELV W EXAMINATION: CT angiography of the chest, CT of the abdomen and pelvis. TECHNIQUE: Contrast enhanced thin section helical images were obtained through the chest, abdomen and pelvis with intravenous contrast timed for the optimal opacification of the arterial structures of the chest per CTA protocol. Post-processing, reconstructions and interpretation of angiographic images of the vessels was performed. 3D MIP reconstructions were performed and reviewed. All CT scans use one or more of the following dose optimizing techniques: Automated exposure control, MA and/or KvP adjustment based on a patient size and exam type, or iterative reconstruction. HISTORY: SOA, hypoxia. COMPARISON: None available. FINDINGS: Vascular: No filling defects are seen within the visualized pulmonary arteries. Evaluation of the distal pulmonary arteries is limited secondary to respiratory motion and consolidation. There are vascular calcifications of the aorta and coronary vessels without aneurysm. Thyroid: The thyroid is normal. Mediastinum: Heart size is normal without significant pericardial effusion. No suspicious lymphadenopathy. Lungs and airways: There are patchy ground-glass opacities seen throughout both lungs. Trace bilateral pleural effusions with adjacent atelectasis or consolidation. No pneumothorax. The airways are normal. Solid organs: The liver is normal without focal lesion. The gallbladder is surgically absent. There is no biliary ductal dilation. Pancreas is normal. Spleen is normal. Adrenal glands are normal. The kidneys are normal without hydronephrosis. Bowel: The stomach and small bowel are normal without obstruction. There is diffuse wall thickening and inflammatory stranding of the colon. There is more prominent inflammatory stranding seen near the cecum with evidence of presumed air within the venous plexus versus free air. Peritoneum: No free fluid or loculated fluid collection. No suspicious lymphadenopathy. Vasculature: Calcification of the aorta without aneurysm. Musculoskeletal: Degenerative changes of the spine without suspicious osseous lesion or compression fracture. Pelvis: The uterus and adnexa are normal. Urinary bladder is decompressed with a Parker catheter. IMPRESSION: 1. Diffuse wall thickening of the colon with greatest area of inflammatory stranding seen near the cecum. Findings are concerning for an infectious or inflammatory colitis. There are findings suggestive of venous air adjacent to the cecum, less likely free air. 2. Patchy ground-glass opacities throughout both lungs which can be seen with pulmonary edema or atypical infection. Dictated by: Dictated on workstation # [id number] Dict: 10/21/21 1302 Trans: 10/21/21 1317 [id number] Interpreted by: LILIANA ANGELO DO Electronically signed by: LILIANA ANGELO DO 10/21/21 1317 Assessment/Plan Assessment/Plan (1) Severe sepsis Status: Resolved Assessment & Plan: 10/25: Resolved patient is doing well on the floor, HDS (2) Acute respiratory failure with hypoxia Status: Resolved Assessment & Plan: 10/25: Continue MAT protocol, Will continue to titrate oxygen as patient tolerates, encouraged sitting up in chair and ambulation to help with bowel recovery 10/27: Will continue to titrate oxygen as tolerated. Home O2 study ordered for AM 10/28: home O2 pending, Encourage up in chair, IS (3) Acute ischemic colitis Status: Acute Assessment & Plan: 10/25: S/p Ex lap with partial bowel resection, tolerated CLD 10/26: Passing gas, pain improved 10/27: Tolerating PO diet, small BM this AM (4) Pneumonia Status: Acute Qualifiers: Qualified Codes: J18.9 - Pneumonia, unspecified organism (5) UTI (urinary tract infection) Status: Resolved Assessment & Plan: 10/28: Antibiotics completed Qualifiers: Qualified Codes: N39.0 - Urinary tract infection, site not specified (6) Hyponatremia Status: Resolved Assessment & Plan: 10/25: Continues to trend up, will continue to monitor daily (7) Physical debility Status: Acute Assessment & Plan: 10/26: IRF consult placed, patient will no longer have rn transitional care at home since broke hip and is hospitalized. 10/27: Patient would like to go to daughter's house with HH rather then rehab if it is out of the hospital 10/28: Waiting on insurance approval for IRF, patient continues to be a 2 person assist TITI KELLY MD Oct 28, 2021 16:07
[2021-10-28] MEDS: ONDANSETRON 4 MG/2 ML (SDV) Z0FRAN IVP PRN (16:21)
--- NOTE | 2021-10-28 16:23 | Progress Note - Cardiology ---
Cardiology SOAP Progress Note Subjective: No cp or palp or syncope or shortness of breath at rest Gen malaise and weakness are present Abd discomfort has improved No n/v/d Objective: I&O/Vital Signs 10/28/21 10/28/21 10/28/21 10/28/21 08:00 08:00 09:58 12:00 Temp 36.0 36.2 Pulse 68 75 Resp 18 18 B/P (MAP) 137/76 (96) 144/81 (102) Pulse Ox 98 94 96 O2 Delivery Nasal Cannula Nasal Cannula Nasal Cannula Nasal Cannula O2 Flow Rate 3.00 3.00 3.00 3.00 10/28/21 10/28/21 15:25 16:00 Temp 36.3 Pulse 88 Resp 18 B/P (MAP) 124/64 (84) Pulse Ox 100 100 O2 Delivery Nasal Cannula Nasal Cannula O2 Flow Rate 3.00 3.00 10/28/21 00:00 Intake Total 760 ml Output Total 1180 ml Balance -420 ml Constitutional: AAO x 3, other (off vent) Respiratory: No accessory muscle use, No respiratory distress; chest expansion is symmetric, chest is bilaterally symmetric, rhonchi (scattered), other (coarse breathsounds throughout) Cardiovascular: regular rate-rhythm; No JVD; S1 and S2 Gastrointestional: other (post-op) Extremities: other (mod bilat LE swelling) Neurologic/Psychiatric: oriented x 3, other (seems to be able to move all limbs equally) Skin: normal color, warm/dry Results/Procedures: Labs Laboratory Tests 10/27/21 17:47: Glucometer 149H 10/28/21 00:36: Glucometer 224H 10/28/21 05:10: White Blood Count 14.2H, Red Blood Count 3.60L, Hemoglobin 10.0L, Hematocrit 31L , Mean Corpuscular Volume 87, Mean Corpuscular Hemoglobin 28, Mean Corpuscular Hemoglobin Concent 32, Red Cell Distribution Width 16.8H, Platelet Count 264, Mean Platelet Volume 10.1, Immature Granulocyte % (Auto) 10, Neutrophils (%) (Auto) 62, Lymphocytes (%) (Auto) 20, Monocytes (%) (Auto) 6, Eosinophils (%) (Auto) 2, Basophils (%) (Auto) 0, Neutrophils # (Auto) 8.7H, Lymphocytes # (Auto) 2.8, Monocytes # (Auto) 0.9, Eosinophils # (Auto) 0.3, Basophils # (Auto) 0.0, Immature Granulocyte # (Auto) 1.5H, Sodium Level 134L, Potassium Level 3.7, Chloride Level 98, Carbon Dioxide Level 24, Anion Gap 12, Blood Urea Nitrogen 14, Creatinine 0.77, Estimat Glomerular Filtration Rate 74, BUN/Creatinine Ratio 18, Glucose Level 135H, Calcium Level 8.2L, Corrected Calcium 9.6, Total Bilirubin 0.4, Aspartate Amino Transf (AST/SGOT) 12, Alanine Aminotransferase (ALT/SGPT) 8, Alkaline Phosphatase 76, Total Protein 5.5L, Albumin 2.3L 10/28/21 11:27: Glucometer 153H 10/28/21 15:38: Glucometer 178H Microbiology 10/21/21 MRSA Screen - Final, Complete MRSA not isolated 10/21/21 Blood Culture - Final, Complete No growth 10/21/21 Urine Culture - Final, Complete Escherichia coli Laboratory Tests 10/27/21 04:35 10/28/21 05:10 A/P: Assessment: Sepsis (preop) - s/p exploratory laparotomy, right hemicolectomy, ileal resection(100cm) with ileocolonic anastamosis on 10/22/21 - post-op resp failure has improved (now off vent) CAD - reports follows with cardiology at [facility] in [place] and has had cardiac stents placed in June 2021 Acute on chronic exacerbation of COPD H/o CHF - Echo on 10/22/21: LVEF 55-60%, dilated RA DM 2 HTN - uncontrolled HLD H/o frequent falls H/o frequent UTI's Plan: Continue ASA and Plavix Monitor labs BP better. Continue antihtn regimen Outpt cardiac f/u advised MIRTA AL MD FACP [facility] Oct 28, 2021 16:23
[2021-10-28] MEDS: AMITRIPTYLINE 25 MG (ELAVIL) TAB PO SCH (19:27)
[2021-10-28 19:46] VITALS: BP_SYST 132; BP_SYST 89; BP_DIAS 52; BP_DIAS 58
[2021-10-28 23:07] VITALS: BP 120/57
[2021-10-29] MEDS: ONDANSETRON 4 MG/2 ML (SDV) Z0FRAN IVP PRN ×2 (00:57→11:34)
[2021-10-29] MEDS: ALPRAZolam 0.5 MG (XANAX) TAB PO PRN (00:57)
[2021-10-29] MEDS: RT-ALBUTEROL/IPRATROPIUM 3 ML (DUONEB) VIAL INH SCH ×4 (02:58→21:24)
[2021-10-29 05:04] LABS: BASOPHILS % (AUTO) 0 % (0-10); EOSINOPHILS # (AUTO) 0.2 10^3/uL (0.0-0.3); EOSINOPHILS % (AUTO) 2 % (0-10); HEMATOCRIT 29 % (35-52); HEMOGLOBIN 9.5 g/dL (11.5-16.0); LYMPHOCYTES # (AUTO) 2.2 10^3/uL (1.0-4.0); LYMPHOCYTES % (AUTO) 17 % (12-44); MEAN CORPUSCULAR HEMOGLOBIN 28 pg (25-34); MEAN CORPUSCULAR HGB CONC 32 g/dL (32-36); MEAN CORPUSCULAR VOLUME 87 fL (80-99); MEAN PLATELET VOLUME 10.4 fL (9.0-12.2); MONOCYTES % (AUTO) 8 % (0-12); NEUTROPHILS # (AUTO) 8.1 10^3/uL (1.8-7.8); NEUTROPHILS % (AUTO) 63 % (42-75); PLATELET COUNT 280 10^3/uL (130-400); WHITE BLOOD COUNT 12.9 10^3/uL (4.3-11.0)
[2021-10-29 05:13] LABS: POTASSIUM 3.9 MMOL/L (3.6-5.0)
[2021-10-29 05:14] LABS: CALCIUM 8.4 MG/DL (8.5-10.1)
[2021-10-29 05:19] LABS: CREATININE SERUM 0.81 MG/DL (0.60-1.30)
[2021-10-29] MEDS: LACTOBACILLUS Acidoph/Bulgar 1 GM (LACTINEX) PACKET PO SCH ×2 (05:40→11:34)
[2021-10-29] MEDS: inSUlin ASPART (NovoLOG) 1 UNIT/0.01 ML (CHARGE PER UNIT) SC SCH ×3 (05:43→17:42)
[2021-10-29 08:00] VITALS: BP 124/72
[2021-10-29] MEDS: CLOPIDOGREL 75 MG (PLAVIX) TABLET PO SCH (09:38)
[2021-10-29] MEDS: ASPIRIN 81 MG CHEW (CHILDREN'S ASA) PO SCH (09:38)
[2021-10-29] MEDS: ENOXAPARIN 40 MG/0.4 ML (LOVENOX) SYR SC SCH ×2 (09:38→21:33)
[2021-10-29] MEDS: PANTOPRAZOLE 40 MG (PROTONIX) TAB PO SCH ×2 (09:38→21:33)
--- NOTE | 2021-10-29 10:52 | Progress Note ---
Subjective Date Seen by a Provider: Oct 29, 2021 Time Seen by a Provider: 10:50 Subjective/Events-last exam doing well. tolerating diet and having BM's. pain controlled. still physically weak to ambulation. Focused Exam Time of Focused Exam: 08:30 Objective Exam Vital Signs Date Time Temp Pulse Resp B/P (MAP) Pulse Ox O2 Delivery O2 Flow Rate FiO2 10/29/21 09:09 94 Nasal Cannula 3.00 10/29/21 08:00 36.0 84 20 124/72 (89) 97 Nasal Cannula 3.00 10/29/21 02:59 94 Nasal Cannula 3.00 10/28/21 23:07 36.2 84 18 120/57 (78) 92 Nasal Cannula 3.00 10/28/21 22:10 94 Nasal Cannula 3.00 10/28/21 19:46 36.2 86 20 132/58 (82) 97 Nasal Cannula 3.00 10/28/21 19:27 Nasal Cannula 3.00 10/28/21 16:00 36.3 88 18 124/64 (84) 100 Nasal Cannula 3.00 10/28/21 15:25 100 Nasal Cannula 3.00 10/28/21 12:00 36.2 75 18 144/81 (102) 96 Nasal Cannula 3.00 I & O 10/29/21 07:00 Intake Total 2620 ml Output Total 540 ml Balance 2080 ml Capillary Refill : Less Than 3 SecondsLess Than 3 Seconds General Appearance: No Apparent Distress HEENT: PERRL/EOMI Neck: Full Range of Motion Respiratory: Chest Non Tender, Decreased Breath Sounds, Wheezing Cardiovascular: Regular Rate, Rhythm Gastrointestinal: normal bowel sounds, soft Extremity: Normal Capillary Refill Neurologic/Psychiatric: Alert, Oriented x3 Skin: Normal Color Lymphatic: No Adenopathy Results Lab Laboratory Tests 10/28/21 11:27: Glucometer 153H 10/28/21 15:38: Glucometer 178H 10/29/21 05:00: White Blood Count 12.9H, Red Blood Count 3.40L, Hemoglobin 9.5L, Hematocrit 29L, Mean Corpuscular Volume 87, Mean Corpuscular Hemoglobin 28, Mean Corpuscular Hemoglobin Concent 32, Red Cell Distribution Width 17.0H, Platelet Count 280, Mean Platelet Volume 10.4, Immature Granulocyte % (Auto) 11, Neutrophils (%) (Auto) 63, Lymphocytes (%) (Auto) 17, Monocytes (%) (Auto) 8, Eosinophils (%) (Auto) 2, Basophils (%) (Auto) 0, Neutrophils # (Auto) 8.1H, Lymphocytes # (Auto) 2.2, Monocytes # (Auto) 1.0, Eosinophils # (Auto) 0.2, Basophils # (Auto) 0.0, Immature Granulocyte # (Auto) 1.4H, Sodium Level 133L, Potassium Level 3.9, Chloride Level 96L, Carbon Dioxide Level 25, Anion Gap 12, Blood Urea Nitrogen 13, Creatinine 0.81, Estimat Glomerular Filtration Rate 70, BUN/Creatinine Ratio 16, Glucose Level 154H, Calcium Level 8.4L Microbiology 10/21/21 MRSA Screen - Final, Complete MRSA not isolated 10/21/21 Blood Culture - Final, Complete No growth 10/21/21 Urine Culture - Final, Complete Escherichia coli Assessment/Plan Assessment/Plan Assess & Plan/Chief Complaint s/p expl laparotomy and SBR and RHC. cont lovenox. increase ambulation. cont abx. advance to dys 3 diet. MONICA FERNANDEZ MD Oct 29, 2021 10:52
--- NOTE | 2021-10-29 11:03 | Physical Therapy Daily Note ---
PT Daily Note-Current Subjective Pt on commode when PT arrives and nurses aide present. Agrees to PT and for PT to help w/ standing while nurse aide wipes pt. Pt declines ambulation this date d/t her having diarrhea and stomach being upset. Pain Location: No Pain Reported Comment: Doesn't report having any but says stomach is upset Mental Status Patient Orientation: Normal For Age Attachments: Oxygen Transfers SCALE: Activities may be completed with or without assistive devices. 9-Fvakhhelwc-cxfuazu completes the activity by him/herself with no assistance from a helper. 5-Set-up or Clean-up Assistance-helper sets up or cleans up; patient completes activity. Likely assists only prior to or following the activity. 4-Supervision or Touching Assistance-helper provides verbal cues and/or touching/steadying and/or contact guard assistance as patient completes activity. Assistance may be provided throughout the activity or intermittently. 3-Partial/Moderate Assistance-helper does LESS THAN HALF the effort. Likely lifts, holds or supports trunk or limbs, but provides less than half the effort. 2-Substantial/Maximal Assistance-helper does MORE THAN HALF the effort. Likely lifts or holds trunk or limbs and provides more than half the effort. 4-Mgnlmjwik-ngkwml does ALL the effort. Patient does none of the effort to complete the activity. Or, the assistance of 2 or more helpers is required for the patient to complete the activity. If activity was not attempted, code reason: 7-Patient Refused. 9-Not Applicable-not attempted and the patient did not perform the activity before the current illness, exacerbation or injury. 10-Not Attempted due to Environmental Limitations-(lack of equipment, weather restraints, etc.). 88-Not Attempted due to Medical Conditions or Safety Concerns. Sit to Lying (QC): 3 Sit to Stand (QC): 2 Chair/Ukn-vh-Aipys Xfer(QC): 3 Toilet Transfer (QC): 2 Gait Training Does the Patient Walk?: No and Walking Goal IS indicated Exercises Supine Ex: Bridging, Ankle pumps, Quad Set, Glut sets, Heel Slides, Scooting, Hip abd/add Supine Reps: 15 Standing: Sit to Stand Standing Reps: 3 Treatments Pt on commode w/ nurse aide when PT arrives. Pt requires modA/maxA in order to stand from commode for nurse aide to wipe. Pt requires two separate attempts to get cleaned. Following second attempt pt able to TF back to bed. Pt requires modA for LEs to get into bed. Pt then performs bed mobility and then requires PT and nurse to assist w/ bed sheet to move all the way up on bed. Nurse aide then departs and pt performs bed exs but requires rest breaks in between exs d/t nausea. All needs met call light nearby as PT departs. Assessment Current Status: Poor Progress Pt requires much encouragement this date in order to participate in PT. Declines ambulation. Requires skilled verbal cues about hand and foot placement when TFs from commode to bed. Requires modA/maxA in order to stand from commode but once standing and cued to place hands on FWW pt able to stand w/ CGA. PT [employer] Goals [facility] Goals PT [facility] Goals Time Frame: Nov 06, 2021 Roll Left & Right (QC): 6 Sit to Lying (QC): 6 Lying-Sitting on Side/Bed(QC): 6 Sit to Stand (QC): 6 Chair/Ayj-yz-Ecjrt Xfer(QC): 6 Toilet Transfer (QC): 6 Walk 10 feet (QC): 6 Walk 50ft with 2 Turns (QC): 6 PT Plan Problem List Problem List: Activity Tolerance, Functional Strength, Bed Mobility Treatment/Plan Treatment Plan: Continue Plan of Care Treatment Plan: Bed Mobility, Education, Functional Activity Virgen, Functional Strength, Gait, Safety, Therapeutic Exercise, Transfers Treatment Duration: Nov 06, 2021 Frequency: 6 times per week Estimated Hrs Per Day: .5 hour per day Patient and/or Family Agrees t: Yes Safety Risks/Education Patient Education: Transfer Techniques, Steps, Correct Positioning Teaching Recipient: Patient Teaching Methods: Demonstration, Discussion Response to Teaching: Verbalize Understanding, Return Demonstration Time/GCodes Time In: 824 Time Out: 0847 Total Billed Treatment Time: 23 Total Billed Treatment 1 visit, FA (15'), EX (8') KIMBERLEY GEE PTA Oct 29, 2021 11:03
--- NOTE | 2021-10-29 11:36 | Occupational Ther Daily Note ---
OT Current Status-Daily Note Subjective Pt alert, laying in bed with HOB raised when OT entered. Pt requested a warm washcloth to cleanse face. No c/o pain reported. Mental Status/Objective Patient Orientation: Person, Place, Time, Situation ADL-Treatment Pt requested to cleanse and face and agreed to completing oral hygiene. After set up of materials pt was able to complete to complete oral hygiene while laying in bed. Pt requested to brush hair. After set up, pt used comb to brush hair while laying in bed. Due to increase knots in hair, OT assisted. After session, pt laying in bed. Call light in reach and all needs met. Therapy Code Descriptions/Definitions Functional [place] Measure: 0=Not Assessed/NA 4=Minimal Assistance 1=Total Assistance 5=Supervision or Setup 2=Maximal Assistance 6=Modified [place] 3=Moderate Assistance 7=Complete IndependenceSCALE: Activities may be completed with or without assistive devices. 4-Qxeahfubuf-pncmuiw completes the activity by him/herself with no assistance from a helper. 5-Set-up or Clean-up Assistance-helper sets up or cleans up; patient completes activity. [place] assists only prior to or following the activity. 4-Supervision or Touching Assistance-helper provides verbal cues and/or touching/steadying and/or contact guard assistance as patient completes activity. Assistance may be provided throughout the activity or intermittently. 3-Partial/Moderate Assistance-helper does LESS THAN HALF the effort. [place] lifts, holds or supports trunk or limbs, but provides less than half the effort. 2-Substantial/Maximal Assistance-helper does MORE THAN HALF the effort. [place] lifts or holds trunk or limbs and provides more than half the effort. 5-Ckheqflpc-vtolvu does ALL the effort. Patient does none of the effort to complete the activity. Or, the assistance of 2 or more helpers is required for the patient to complete the activity. If activity was not attempted, code reason: 7-Patient Refused. 9-Not Applicable-not attempted and the patient did not perform the activity before the current illness, exacerbation or injury. 10-Not Attempted due to Environmental Limitations-(lack of equipment, weather restraints, etc.). 88-Not Attempted due to Medical Conditions or Safety Concerns. Education OT Patient Education: Correct positioning, Energy conservation, Modified ADL techniques, Progress toward Goal/Update tx plan, Purpose of tx/functional activities Teaching Recipient: Patient Teaching Methods: Demonstration, Discussion Response to Teaching: Verbalize Understanding, Return Demonstration OT Jail Goals Jail Goals Time Frame: Nov 05, 2021 Eating (QC): 6 Oral Hygiene (QC): 6 Toileting Hygiene (QC): 6 Shower/Bathe Self (QC): 6 Upper Body Dressing (QC): 6 Lower Body Dressing (QC): 6 On/Off Footwear (QC): 6 Additional Goals: 1-Demonstrate ADL Tasks, 2-Verbalize Understanding, 3- ImproveStrength/Virgen 1=Demonstrate adherence to instructed precautions during ADL tasks. 2=Patient will verbalize/demonstrate understanding of assistive devices/modifications for ADL. 3=Patient will improve strength/tolerance for activity to enable patient to perform ADL's. OT Education/Plan Problem List/Assessment Assessment: Decreased Activ Tolerance, Impaired I ADL's, Impaired Self-Care Skills Discharge Recommendations Plan/Recommendations: Continue POC Treatment Plan/Plan of Care Patient would benefit from OT for education, treatment and training to promote independence in ADL's, mobility, safety and/or upper extremity function for ADL's. Plan of Care: ADL Retraining, Functional Mobility, UE Funct Exercise/Act Treatment Duration: Nov 05, 2021 Frequency: 3 times per week (3-5 times per week) Rehab Potential: Fair Time/GCodes Start Time: 09:16 Stop Time: 09:29 Total Time Billed (hr/min): 13 Billed Treatment Time 1 visit- ADL 1 (13 mins) LONNIE CORRAL Oct 29, 2021 11:36
--- NOTE | 2021-10-29 12:58 | Progress Note - Cardiology ---
Cardiology SOAP Progress Note Subjective: No cp or palp or syncope No shortness of breath No n/v/d Mild to mod gen malaise and weakness Objective: I&O/Vital Signs 10/29/21 10/29/21 10/29/21 02:59 08:00 09:09 Temp 36.0 Pulse 84 Resp 20 B/P (MAP) 124/72 (89) Pulse Ox 94 97 94 O2 Delivery Nasal Cannula Nasal Cannula Nasal Cannula O2 Flow Rate 3.00 3.00 3.00 10/29/21 00:00 Intake Total 2020 ml Output Total 345 ml Balance 1675 ml Constitutional: AAO x 3, other (off vent) Respiratory: No accessory muscle use, No respiratory distress; chest expansion is symmetric, chest is bilaterally symmetric, rhonchi (scattered), other (coarse breathsounds throughout) Cardiovascular: regular rate-rhythm; No JVD; S1 and S2 Gastrointestional: other (post-op) Extremities: other (mod bilat LE swelling) Neurologic/Psychiatric: oriented x 3, other (seems to be able to move all limbs equally) Skin: normal color, warm/dry Results/Procedures: Labs Laboratory Tests 10/28/21 15:38: Glucometer 178H 10/29/21 05:00: White Blood Count 12.9H, Red Blood Count 3.40L, Hemoglobin 9.5L, Hematocrit 29L, Mean Corpuscular Volume 87, Mean Corpuscular Hemoglobin 28, Mean Corpuscular Hemoglobin Concent 32, Red Cell Distribution Width 17.0H, Platelet Count 280, Mean Platelet Volume 10.4, Immature Granulocyte % (Auto) 11, Neutrophils (%) (Auto) 63, Lymphocytes (%) (Auto) 17, Monocytes (%) (Auto) 8, Eosinophils (%) (Auto) 2, Basophils (%) (Auto) 0, Neutrophils # (Auto) 8.1H, Lymphocytes # (Auto) 2.2, Monocytes # (Auto) 1.0, Eosinophils # (Auto) 0.2, Basophils # (Auto) 0.0, Immature Granulocyte # (Auto) 1.4H, Sodium Level 133L, Potassium Level 3.9, Chloride Level 96L, Carbon Dioxide Level 25, Anion Gap 12, Blood Urea Nitrogen 13, Creatinine 0.81, Estimat Glomerular Filtration Rate 70, BUN/Creatinine Ratio 16, Glucose Level 154H, Calcium Level 8.4L 10/29/21 12:00: Glucometer 165H Microbiology 10/21/21 MRSA Screen - Final, Complete MRSA not isolated 10/21/21 Blood Culture - Final, Complete No growth 10/21/21 Urine Culture - Final, Complete Escherichia coli Laboratory Tests 10/28/21 05:10 10/29/21 05:00 A/P: Assessment: Sepsis (preop) - s/p exploratory laparotomy, right hemicolectomy, ileal resection(100cm) with ileocolonic anastamosis on 10/22/21 - post-op resp failure has improved (now off vent) CAD - reports follows with cardiology at [facility] in [place] and has had cardiac stents placed in June 2021 Acute on chronic exacerbation of COPD H/o CHF - Echo on 10/22/21: LVEF 55-60%, dilated RA DM 2 HTN - uncontrolled HLD H/o frequent falls H/o frequent UTI's Plan: Continue ASA and Plavix Monitor labs BP better. Continue antihtn regimen Outpt cardiac f/u advised MIRTA AL MD FACP FAC CCDS Oct 29, 2021 12:58
[2021-10-29] MEDS: LACTOBACILLUS ACIDOPHILUS (PROBIOTIC) CAPSULE PO SCH ×2 (15:14→21:33)
[2021-10-29 16:10] VITALS: BP 108/70
--- NOTE | 2021-10-29 18:20 | Progress Note ---
Subjective Subjective/Events-last exam Pain better controlled. + BM and flatus. High fall risk due to fear of falling and instability. Requiring 2 person assist Review of Systems Pulmonary: No Dyspnea, No Cough Cardiovascular: No: Chest Pain, Palpitations, Edema Gastrointestinal: No: Nausea, Vomiting Neurological: Weakness, Incoordination; No: Confusion Focused Exam Time of Focused Exam: 08:30 Objective Exam Last Set of Vital Signs Vital Signs Date Time Temp Pulse Resp B/P (MAP) Pulse Ox O2 Delivery O2 Flow Rate FiO2 10/29/21 16:10 36.0 84 20 108/70 (83) 97 Nasal Cannula 3.00 10/23/21 09:39 35 Capillary Refill : Less Than 3 SecondsLess Than 3 Seconds I&O Intake and Output 10/29/21 00:00 Intake Total 2840 ml Output Total 735 ml Balance 2105 ml Intake Oral 1340 ml IV Total 1500 ml Output Urine Total 300 ml Drainage Total 435 ml # Voids 4 # Bowel Movements 1 General: Alert, Oriented X3 Lungs: Clear to Auscultation, Normal Air Movement Heart: Regular Rate, No Murmurs Abdomen: Normal Bowel Sounds, Soft, No Tenderness Skin: Other (brusing on UE bilaterall) Results/Procedures Lab Laboratory Tests 10/29/21 05:00: White Blood Count 12.9H, Red Blood Count 3.40L, Hemoglobin 9.5L, Hematocrit 29L, Mean Corpuscular Volume 87, Mean Corpuscular Hemoglobin 28, Mean Corpuscular Hemoglobin Concent 32, Red Cell Distribution Width 17.0H, Platelet Count 280, Mean Platelet Volume 10.4, Immature Granulocyte % (Auto) 11, Neutrophils (%) (Auto) 63, Lymphocytes (%) (Auto) 17, Monocytes (%) (Auto) 8, Eosinophils (%) (Auto) 2, Basophils (%) (Auto) 0, Neutrophils # (Auto) 8.1H, Lymphocytes # (Auto) 2.2, Monocytes # (Auto) 1.0, Eosinophils # (Auto) 0.2, Basophils # (Auto) 0.0, Immature Granulocyte # (Auto) 1.4H, Sodium Level 133L, Potassium Level 3.9, Chloride Level 96L, Carbon Dioxide Level 25, Anion Gap 12, Blood Urea Nitrogen 13, Creatinine 0.81, Estimat Glomerular Filtration Rate 70, BUN/Creatinine Ratio 16, Glucose Level 154H, Calcium Level 8.4L 10/29/21 12:00: Glucometer 165H 10/29/21 17:35: Glucometer 170H Microbiology 10/21/21 MRSA Screen - Final, Complete MRSA not isolated 10/21/21 Blood Culture - Final, Complete No growth 10/21/21 Urine Culture - Final, Complete Escherichia coli Radiology NAME: SOUMYA RIOS [facility] REC#: [id number] PT STATUS: REG ER : 1950 PHYSICIAN: EDEN SIMMONS DO ADMIT DATE: 10/21/21/ER FS Signed Date of Exam:10/21/21 CT ANNE CHEST/NOANG ABD-PELV W EXAMINATION: CT angiography of the chest, CT of the abdomen and pelvis. TECHNIQUE: Contrast enhanced thin section helical images were obtained through the chest, abdomen and pelvis with intravenous contrast timed for the optimal opacification of the arterial structures of the chest per CTA protocol. Post-processing, reconstructions and interpretation of angiographic images of the vessels was performed. 3D MIP reconstructions were performed and reviewed. All CT scans use one or more of the following dose optimizing techniques: Automated exposure control, MA and/or KvP adjustment based on a patient size and exam type, or iterative reconstruction. HISTORY: SOA, hypoxia. COMPARISON: None available. FINDINGS: Vascular: No filling defects are seen within the visualized pulmonary arteries. Evaluation of the distal pulmonary arteries is limited secondary to respiratory motion and consolidation. There are vascular calcifications of the aorta and coronary vessels without aneurysm. Thyroid: The thyroid is normal. Mediastinum: Heart size is normal without significant pericardial effusion. No suspicious lymphadenopathy. Lungs and airways: There are patchy ground-glass opacities seen throughout both lungs. Trace bilateral pleural effusions with adjacent atelectasis or consolidation. No pneumothorax. The airways are normal. Solid organs: The liver is normal without focal lesion. The gallbladder is surgically absent. There is no biliary ductal dilation. Pancreas is normal. Spleen is normal. Adrenal glands are normal. The kidneys are normal without hydronephrosis. Bowel: The stomach and small bowel are normal without obstruction. There is diffuse wall thickening and inflammatory stranding of the colon. There is more prominent inflammatory stranding seen near the cecum with evidence of presumed air within the venous plexus versus free air. Peritoneum: No free fluid or loculated fluid collection. No suspicious lymphadenopathy. Vasculature: Calcification of the aorta without aneurysm. Musculoskeletal: Degenerative changes of the spine without suspicious osseous lesion or compression fracture. Pelvis: The uterus and adnexa are normal. Urinary bladder is decompressed with a Parker catheter. IMPRESSION: 1. Diffuse wall thickening of the colon with greatest area of inflammatory stranding seen near the cecum. Findings are concerning for an infectious or inflammatory colitis. There are findings suggestive of venous air adjacent to the cecum, less likely free air. 2. Patchy ground-glass opacities throughout both lungs which can be seen with pulmonary edema or atypical infection. 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 10/27: Patient would like to go to daughter's house with HH rather then rehab if it is out of the hospital 10/28: Waiting on insurance approval for IRF, patient continues to be a 2 person assist 10/29: Waiting on IRF, if no insurance approval by Monday then would work on HH at daughter's house (2) Severe sepsis Status: Resolved Assessment & Plan: 10/25: Resolved patient is doing well on the floor, HDS (3) Acute respiratory failure with hypoxia Status: Resolved Assessment & Plan: 10/25: Continue MAT protocol, Will continue to titrate oxygen as patient tolerates, encouraged sitting up in chair and ambulation to help with bowel recovery 10/27: Will continue to titrate oxygen as tolerated. Home O2 study ordered for AM 10/28: home O2 pending, Encourage up in chair, IS (4) Acute ischemic colitis Status: Acute Assessment & Plan: 10/25: S/p Ex lap with partial bowel resection, tolerated CLD 10/26: Passing gas, pain improved 10/27: Tolerating PO diet, small BM this AM (5) Pneumonia Status: Acute Qualifiers: Qualified Codes: J18.9 - Pneumonia, unspecified organism (6) UTI (urinary tract infection) Status: Resolved Assessment & Plan: 10/28: Antibiotics completed Qualifiers: Qualified Codes: N39.0 - Urinary tract infection, site not specified (7) Hyponatremia Status: Resolved Assessment & Plan: 10/25: Continues to trend up, will continue to monitor daily TITI KELLY MD Oct 29, 2021 18:20
[2021-10-29] MEDS: AMITRIPTYLINE 25 MG (ELAVIL) TAB PO SCH (21:35)
[2021-10-29 23:20] VITALS: BP 103/65
[2021-10-30] MEDS: RT-ALBUTEROL/IPRATROPIUM 3 ML (DUONEB) VIAL INH SCH ×4 (02:23→20:12)
[2021-10-30 05:46] LABS: BASOPHILS % (AUTO) 0 % (0-10); EOSINOPHILS # (AUTO) 0.2 10^3/uL (0.0-0.3); EOSINOPHILS % (AUTO) 2 % (0-10); HEMATOCRIT 26 % (35-52); HEMOGLOBIN 8.3 g/dL (11.5-16.0); LYMPHOCYTES % (AUTO) 16 % (12-44); MEAN CORPUSCULAR HEMOGLOBIN 28 pg (25-34); MEAN CORPUSCULAR HGB CONC 32 g/dL (32-36); MEAN CORPUSCULAR VOLUME 88 fL (80-99); MEAN PLATELET VOLUME 10.3 fL (9.0-12.2); MONOCYTES % (AUTO) 8 % (0-12); NEUTROPHILS # (AUTO) 7.8 10^3/uL (1.8-7.8); NEUTROPHILS % (AUTO) 64 % (42-75); PLATELET COUNT 228 10^3/uL (130-400); WHITE BLOOD COUNT 12.2 10^3/uL (4.3-11.0)
[2021-10-30 06:00] LABS: POTASSIUM 3.8 MMOL/L (3.6-5.0)
[2021-10-30 06:01] LABS: CALCIUM 7.8 MG/DL (8.5-10.1)
[2021-10-30 06:05] LABS: CREATININE SERUM 0.94 MG/DL (0.60-1.30)
[2021-10-30] MEDS: inSUlin ASPART (NovoLOG) 1 UNIT/0.01 ML (CHARGE PER UNIT) SC SCH ×5 (06:29→23:50)
[2021-10-30] MEDS: LACTOBACILLUS ACIDOPHILUS (PROBIOTIC) CAPSULE PO SCH ×4 (06:37→20:22)
[2021-10-30 08:00] VITALS: BP 93/51
[2021-10-30] MEDS: ALPRAZolam 0.5 MG (XANAX) TAB PO PRN ×3 (09:15→23:22)
[2021-10-30] MEDS: CLOPIDOGREL 75 MG (PLAVIX) TABLET PO SCH (09:15)
[2021-10-30] MEDS: PANTOPRAZOLE 40 MG (PROTONIX) TAB PO SCH ×2 (09:15→20:22)
[2021-10-30] MEDS: ASPIRIN 81 MG CHEW (CHILDREN'S ASA) PO SCH (09:15)
[2021-10-30] MEDS: ENOXAPARIN 40 MG/0.4 ML (LOVENOX) SYR SC SCH ×2 (09:15→20:22)
[2021-10-30 09:21] VITALS: BP 100/79
[2021-10-30 09:52] VITALS: BP 100/79
--- NOTE | 2021-10-30 10:37 | Cardiology Progress Note ---
Subjective Date Seen by Provider: Oct 30, 2021 Time Seen by Provider: 10:35 Subjective/Events-last exam Patient was seen at bedside, feeling better, asking to go home. Denied any chest Review of Systems General: No Chills, No Night Sweats, No Fatigue, No Malaise, No Appetite, No Other HEENT: No Head Aches, No Visual Changes, No Eye Pain, No Ear Pain, No Dysphasia, No Sinus Congestion, No Post Nasal Drip, No Sore Throat, No Other Pulmonary: No Dyspnea, No Cough, No Pleuritic Chest Pain, No Other Cardiovascular: No: Chest Pain, Palpitations, Orthopnea, Paroxysmal Noc. Dyspnea, Edema, Lt Headedness, Other Focused Exam Time of Focused Exam: 08:30 Objective-Cardiology Exam Last Set of Vital Signs Vital Signs 10/30/21 10/30/21 10/30/21 08:00 09:21 09:52 Temp 36.0 Pulse 71 Resp 20 B/P (MAP) 100/79 (86) Pulse Ox 93 O2 Delivery Nasal Cannula O2 Flow Rate 3.00 I&O Intake and Output 10/30/21 00:00 Intake Total 1000 ml Output Total 415 ml Balance 585 ml Intake Oral 1000 ml Gastric Drainage Total 50 ml Drainage Total 365 ml # Voids 4 # Bowel Movements 4 General: Alert, Oriented X3 HEENT: Mucous Memb Moist/[place] Neck: Supple, No JVD, No Thyromegaly Lungs: Clear to Auscultation, Normal Air Movement Heart: Regular Rate, Normal S1, Normal S2, No Murmurs Abdomen: Normal Bowel Sounds, Soft, No Tenderness Extremities: Other Skin: Other (brusing on UE bilaterall) Neuro: Normal Speech, Cranial Nerves 3-12 NL Psych/Mental Status: Mental Status NL, Mood NL Results Lab Laboratory Tests 10/30/21 05:35 A/P-Cardiology Admission Diagnosis Coronary artery disease Congestive heart failure Hypertension Hyperlipidemia Assessment/Plan Status post acute respiratory failure, improved, extubated and doing well. Managed by medical team Status post exploratory laparotomy with right hemicolectomy, ileal resection with ileocolonic anastomosis done on 10/22/2021 with postop respiratory failure, improved and doing better. 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 Currently stable. Continue to monitor COPD with history of acute exacerbation, better at this time feeling better and doing better. Congestive heart failure, chronic compensated left ventricular diastolic dysfunction, echocardiogram done on 10/22/2021 showing ejection fraction 55 to 60% with dilated right atrium. Continue to monitor Hypertension, continue current medication monitor blood pressure Hyperlipidemia, monitor lipids Diabetes mellitus, followed and managed by primary care physician INGRID CHRIS MD Oct 30, 2021 10:37
--- NOTE | 2021-10-30 11:13 | Physical Therapy Daily Note ---
PT Daily Note-Current Subjective Pt. up in chair with family present, states "I just want to go home." Pt. agrees to therapy, says "I'll try." Mental Status Patient Orientation: Person, Place, Time, Situation Attachments: Oxygen Transfers SCALE: Activities may be completed with or without assistive devices. 7-Zzbxzalosa-ehexaoh completes the activity by him/herself with no assistance f rom a helper. 5-Set-up or Clean-up Assistance-helper sets up or cleans up; patient completes activity. [place] assists only prior to or following the activity. 4-Supervision or Touching Assistance-helper provides verbal cues and/or touching/steadying and/or contact guard assistance as patient completes activity. Assistance may be provided throughout the activity or intermittently. 3-Partial/Moderate Assistance-helper does LESS THAN HALF the effort. [place] lifts, holds or supports trunk or limbs, but provides less than half the effort. 2-Substantial/Maximal Assistance-helper does MORE THAN HALF the effort. [place] lifts or holds trunk or limbs and provides more than half the effort. 8-Vchdwukkj-jnfcib does ALL the effort. Patient does none of the effort to complete the activity. Or, the assistance of 2 or more helpers is required for the patient to complete the activity. If activity was not attempted, code reason: 7-Patient Refused. 9-Not Applicable-not attempted and the patient did not perform the activity before the current illness, exacerbation or injury. 10-Not Attempted due to Environmental Limitations-(lack of equipment, weather restraints, etc.). 88-Not Attempted due to Medical Conditions or Safety Concerns. Sit to Lying (QC): 4 Sit to Stand (QC): 3 Gait Training Does the Patient Walk?: Yes Distance: 15 ft Walk 10 feet (QC): 4 Gait Persons Needed: 1 Gait Assistive Device: Walker 4 Wheeled Treatments gait in room, transfers Assessment Current Status: Fair Progress Pt. ambulated to the door and requested to return to bed. She fatigued very quickly with ambulation. Pt. is mod A with sit to stand but able to get herself into bed with SBA. Pt. in bed post session with call light and all needs met. PT Senior Care Goals Senior Care Goals PT Paper Baler Goals Time Frame: Nov 06, 2021 Roll Left & Right (QC): 6 Sit to Lying (QC): 6 Lying-Sitting on Side/Bed(QC): 6 Sit to Stand (QC): 6 Chair/Aya-vn-Qsmoj Xfer(QC): 6 Toilet Transfer (QC): 6 Walk 10 feet (QC): 6 Walk 50ft with 2 Turns (QC): 6 PT Plan Treatment/Plan Treatment Plan: Continue Plan of Care Treatment Plan: Bed Mobility, Education, Functional Activity Virgen, Functional Strength, Gait, Safety, Therapeutic Exercise, Transfers Treatment Duration: Nov 06, 2021 Frequency: 6 times per week Estimated Hrs Per Day: .5 hour per day Patient and/or Family Agrees t: Yes Time/GCodes Time In: 0800 Time Out: 0816 Total Billed Treatment Time: 16 Total Billed Treatment 1, FA 16' CULLEN BROWN PT Oct 30, 2021 11:13
--- NOTE | 2021-10-30 11:22 | Progress Note - Hospitalist ---
Subjective HPI/CC On Admission Date Seen by Provider: Oct 30, 2021 Time Seen by Provider: 09:45 CC: Respiratory Failure HPI: This is an elderly female clinic pt of with a hx of COPD who continues to smoke who presented to the [facility] with altered mental status, was found to have B/L pneumonia with respiratory insufficiency requiring central line and severe sepsis IV fluids with pressor therapy. She was given Meropenem and Vancomycin due to multiple allergies and EICU was given report by [facility]. At this current time pt remains stable but high risk for intubation. At time of rounds patient was preparing for emergent surgery due to ischemic bowel suspected and Dr. FERNANDEZ will perform the surgery Subjective/Events-last exam Patient feeling better getting in the bathroom and back with standby assistance per her report. She wishes to go home. Her daughter just left but is appare ntly going to be staying with her becoming the primary caregiver. Patient denies chest pain or shortness of breath at rest and is hopeful for discharge tomorrow. Focused Exam Time of Focused Exam: 08:30 Objective Exam Vital Signs Vital Signs Date Time Temp Pulse Resp B/P (MAP) Pulse Ox O2 Delivery O2 Flow Rate FiO2 10/30/21 09:52 36.0 71 93 10/30/21 09:52 Nasal Cannula 3.00 10/30/21 09:21 100/79 (86) 10/30/21 08:00 20 Capillary Refill : Less Than 3 SecondsLess Than 3 Seconds General Appearance: No Apparent Distress, Chronically ill, Obese Respiratory: No Accessory Muscle Use, No Respiratory Distress, Other (Coarse b reath sounds in the lower lobes posteriorly with no wheezes rales or rhonchi anterior chest clear.) Cardiovascular: Regular Rate, Rhythm, No Gallop Gastrointestinal: Normal Bowel Sounds, Non Tender, Soft Extremity: Other (1+ edema bilaterally with chronic venous insufficiency change no ulcerations noted. ) Results/Procedures Lab Laboratory Tests 10/30/21 05:35 Patient resulted labs reviewed. 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 10/27: Patient would like to go to daughter's house with HH rather then rehab if it is out of the hospital 10/28: Waiting on insurance approval for IRF, patient continues to be a 2 person assist 10/29: Waiting on IRF, if no insurance approval by Monday then would work on HH at daughter's house (2) Severe sepsis Status: Resolved Assessment & Plan: 10/25: Resolved patient is doing well on the floor, HDS (3) Acute respiratory failure with hypoxia Status: Resolved Assessment & Plan: 10/25: Continue MAT protocol, Will continue to titrate oxygen as patient tolerates, encouraged sitting up in chair and ambulation to help with bowel recovery 10/27: Will continue to titrate oxygen as tolerated. Home O2 study ordered for AM 10/28: home O2 pending, Encourage up in chair, IS 10/29: Respiratory failure resolving pneumonia improving plan discharge tomorrow as long as all right with the daughter who will be her primary caregiver. (4) Acute ischemic colitis Status: Acute Assessment & Plan: 10/25: S/p Ex lap with partial bowel resection, tolerated CLD 10/26: Passing gas, pain improved 10/27: Tolerating PO diet, small BM this AM (5) Pneumonia Status: Acute Qualifiers: Qualified Codes: J18.9 - Pneumonia, unspecified organism (6) UTI (urinary tract infection) Status: Resolved Assessment & Plan: 10/28: Antibiotics completed Qualifiers: Qualified Codes: N39.0 - Urinary tract infection, site not specified (7) Hyponatremia Status: Resolved Assessment & Plan: 10/25: Continues to trend up, will continue to monitor daily Critical Care Critically Ill Patient CHEVY FARIAS MD Oct 30, 2021 11:22
[2021-10-30 16:00] VITALS: BP 96/54
[2021-10-30 18:08] VITALS: BP 122/58
[2021-10-30] MEDS: AMITRIPTYLINE 25 MG (ELAVIL) TAB PO SCH (20:24)
[2021-10-30 23:13] VITALS: BP 155/56
[2021-10-31 05:51] LABS: BASOPHILS % (AUTO) 0 % (0-10); EOSINOPHILS # (AUTO) 0.2 10^3/uL (0.0-0.3); EOSINOPHILS % (AUTO) 1 % (0-10); HEMATOCRIT 29 % (35-52); HEMOGLOBIN 9.1 g/dL (11.5-16.0); LYMPHOCYTES # (AUTO) 1.8 10^3/uL (1.0-4.0); LYMPHOCYTES % (AUTO) 16 % (12-44); MEAN CORPUSCULAR HEMOGLOBIN 28 pg (25-34); MEAN CORPUSCULAR HGB CONC 32 g/dL (32-36); MEAN CORPUSCULAR VOLUME 88 fL (80-99); MEAN PLATELET VOLUME 10.1 fL (9.0-12.2); MONOCYTES % (AUTO) 8 % (0-12); NEUTROPHILS # (AUTO) 7.7 10^3/uL (1.8-7.8); NEUTROPHILS % (AUTO) 66 % (42-75); PLATELET COUNT 231 10^3/uL (130-400); WHITE BLOOD COUNT 11.7 10^3/uL (4.3-11.0)
[2021-10-31 06:05] LABS: POTASSIUM 3.8 MMOL/L (3.6-5.0)
[2021-10-31 06:10] LABS: CREATININE SERUM 0.92 MG/DL (0.60-1.30)
[2021-10-31] MEDS: LACTOBACILLUS ACIDOPHILUS (PROBIOTIC) CAPSULE PO SCH ×2 (06:16→12:15)
[2021-10-31] MEDS: inSUlin ASPART (NovoLOG) 1 UNIT/0.01 ML (CHARGE PER UNIT) SC SCH ×2 (06:16→12:15)
[2021-10-31 07:31] VITALS: BP 122/56
--- NOTE | 2021-10-31 08:10 | Discharge Summary ---
Diagnosis/Chief Complaint Date of Admission Oct 21, 2021 at 14:22 Date of Discharge Discharge Date: Oct 31, 2021 Admission Diagnosis Assessment: Respiratory insufficiency Exacerbation COPD Pneumonia Acute ischemic bowel taken to emergent surgery by Dr. FERNANDEZ Current smoker CAD Hypertension Plan: Emergent surgery since benefits outweigh medical risk Guarded prognosis Primary Care Maycol Claire MD Discharge Diagnosis (1) Acute encephalopathy Status: Acute (2) Pneumonia Status: Acute (3) Lactic acid acidosis Status: Acute (4) UTI (urinary tract infection) Status: Resolved (5) Respiratory failure Status: Acute (6) Hyponatremia Status: Resolved Discharge Summary Discharge Physical Exam Allergies: Coded Allergies: Penicillins (Unverified Adverse Reaction, Unknown, 01/16/21) cephalexin (Unverified Adverse Reaction, Unknown, 01/16/21) ciprofloxacin (Unverified Adverse Reaction, Unknown, 01/16/21) erythromycin base (Unverified Adverse Reaction, Unknown, 01/16/21) Vitals & I&Os Vital Signs Date Time Temp Pulse Resp B/P (MAP) Pulse Ox O2 Delivery O2 Flow Rate FiO2 10/31/21 07:31 36.4 70 20 122/56 (78) 100 Nasal Cannula 3.00 General Appearance: No Apparent Distress, Chronically ill Respiratory: No Accessory Muscle Use, No Respiratory Distress, Other (Lungs clear anteriorly some diminished breath sounds posteriorly no wheezes rales or rhonchi.) Cardiovascular: Regular Rate, Rhythm, No Gallop, No JVD Hospital Course Was the Problem List Reviewed?: Yes (1) Physical debility Status: Acute Assessment & Plan: 10/26: IRF consult placed, patient will no longer have care management associate at home since broke hip and is hospitalized. 10/27: Patient would like to go to daughter's house with HH rather then rehab if it is out of the hospital 10/28: Waiting on insurance approval for IRF, patient continues to be a 2 person assist 10/29: Waiting on IRF, if no insurance approval by Monday then would work on HH at daughter's house (2) Severe sepsis Status: Resolved Assessment & Plan: 10/25: Resolved patient is doing well on the floor, HDS (3) Acute respiratory failure with hypoxia Status: Resolved Assessment & Plan: 10/25: Continue MAT protocol, Will continue to titrate oxygen as patient tolerates, encouraged sitting up in chair and ambulation to help with bowel recovery 10/27: Will continue to titrate oxygen as tolerated. Home O2 study ordered for AM 10/28: home O2 pending, Encourage up in chair, IS 10/29: Respiratory failure resolving pneumonia improving plan discharge tomorrow as long as all right with the daughter who will be her primary caregiver. (4) Acute ischemic colitis Status: Acute Assessment & Plan: 10/25: S/p Ex lap with partial bowel resection, tolerated CLD 10/26: Passing gas, pain improved 10/27: Tolerating PO diet, small BM this AM (5) Pneumonia Status: Acute Qualifiers: Qualified Codes: J18.9 - Pneumonia, unspecified organism (6) UTI (urinary tract infection) Status: Resolved Assessment & Plan: 10/28: Antibiotics completed Qualifiers: Qualified Codes: N39.0 - Urinary tract infection, site not specified (7) Hyponatremia Status: Resolved Assessment & Plan: 10/25: Continues to trend up, will continue to monitor daily Patient would benefit from home health due to deconditioning with physical therapy which can be set up through her primary care provider. She was ambulating short distances independently and hemoglobin was up to 9.3 from the mid 8 range several days ago with no evidence for any ongoing bleeding. Labs (last 24 hrs) Laboratory Tests 10/30/21 11:09: Glucometer 175H 10/30/21 17:46: Glucometer 186H 10/30/21 23:33: Glucometer 177H 10/31/21 05:45: White Blood Count 11.7H, Red Blood Count 3.26L, Hemoglobin 9.1L, Hematocrit 29L, Mean Corpuscular Volume 88, Mean Corpuscular Hemoglobin 28, Mean Corpuscular Hemoglobin Concent 32, Red Cell Distribution Width 17.1H, Platelet Count 231, Mean Platelet Volume 10.1, Immature Granulocyte % (Auto) 9, Neutrophils (%) (Auto) 66, Lymphocytes (%) (Auto) 16, Monocytes (%) (Auto) 8, Eosinophils (%) (Auto) 1, Basophils (%) (Auto) 0, Neutrophils # (Auto) 7.7, Lymphocytes # (Auto) 1.8, Monocytes # (Auto) 1.0, Eosinophils # (Auto) 0.2, Basophils # (Auto) 0.0, Immature Granulocyte # (Auto) 1.1H, Sodium Level 131L, Potassium Level 3.8, Chloride Level 98, Carbon Dioxide Level 21, Anion Gap 12, Blood Urea Nitrogen 8, Creatinine 0.92, Estimat Glomerular Filtration Rate 60, BUN/Creatinine Ratio 9, Glucose Level 139H, Calcium Level 8.0L Microbiology 10/21/21 MRSA Screen - Final, Complete MRSA not isolated 10/21/21 Blood Culture - Final, Complete No growth 10/21/21 Urine Culture - Final, Complete Escherichia coli Patient resulted labs reviewed. Pending Labs Laboratory Tests 10/31/21 05:45: White Blood Count 11.7, Red Blood Count 3.26, Hemoglobin 9.1, Hematocrit 29, Mean Corpuscular Volume 88, Mean Corpuscular Hemoglobin 28, Mean Corpuscular Hemoglobin Concent 32, Red Cell Distribution Width 17.1, Platelet Count 231, Mean Platelet Volume 10.1, Immature Granulocyte % (Auto) 9, Neutrophils (%) (Auto) 66, Lymphocytes (%) (Auto) 16, Monocytes (%) (Auto) 8, Eosinophils (%) (Auto) 1, Basophils (%) (Auto) 0, Neutrophils # (Auto) 7.7, Lymphocytes # (Auto) 1.8, Monocytes # (Auto) 1.0, Eosinophils # (Auto) 0.2, Basophils # (Auto) 0.0, Immature Granulocyte # (Auto) 1.1, Sodium Level 131, Potassium Level 3.8, Chloride Level 98, Carbon Dioxide Level 21, Anion Gap 12, Blood Urea Nitrogen 8, Creatinine 0.92, Estimat Glomerular Filtration Rate 60, BUN/Creatinine Ratio 9, Glucose Level 139, Calcium Level 8.0 Discussion & Recommendations Discharge Planning: >30 minutes discharge planning Discharge Home Medications: Active Scripts Active Reported Symbicort 160-4.5 Mcg Inhaler (Budesonide/Formoterol Fumarate) 10.2 Gm Hfa.aer.ad 2 Puff INH BID Novolin N (Insulin NPH Human Isophane) 100 Unit/1 Ml Vial 10 Unit SQ TID Novolin R (Insulin Regular, Human) 100 Unit/1 Ml Vial 10 Unit SQ TID Prednisone 5 Mg Tablet 5 Mg PO DAILY Aspirin EC (Aspirin) 81 Mg Tablet.dr 81 Mg PO DAILY Calcium (Calcium Carbonate) 600 Mg Tablet 600 Mg PO DAILY Fish Oil 1,000 mg Softgel (Floyd-3/Dha/Epa/Fish Oil) 1 Each Capsule 1 Each PO DAILY Jardiance (Empagliflozin) 10 Mg Tablet 10 Mg PO DAILY Gabapentin 400 Mg Capsule 400 Mg PO TID Pantoprazole Sodium 40 Mg Tablet.dr 40 Mg PO DAILY Levothyroxine Sodium 88 Mcg Tablet 88 Mcg PO DAILY Torsemide 20 Mg Tablet 20 Mg PO DAILY Tizanidine HCl 2 Mg Tablet 2 Mg PO TID PRN Amitriptyline HCl 25 Mg Tablet 25 Mg PO HS Atorvastatin Calcium 80 Mg Tablet 80 Mg PO HS Hydrocodone-Acetamin 5-325 mg (Hydrocodone/Acetaminophen) 1 Each Tablet 1 Ea PO Q6H PRN Clopidogrel (Clopidogrel Bisulfate) 75 Mg Tablet 75 Mg PO DAILY Dicyclomine HCl 10 Mg Capsule 10 Mg PO QIDACHS Alprazolam 0.5 Mg Tablet 0.5 Mg PO TID PRN Ropinirole HCl 2 Mg Tablet 4 Mg PO HS TAKES 2 (2MG) TABS Instructions to patient/family Please see electronic discharge instructions given to patient. Copy Copies To 1: MAYCOL CLAIRE MD Problem Qualifiers (1) Pneumonia: Pneumonia type: due to unspecified organism Laterality: bilateral Lung location: unspecified part of lung Qualified Codes: J18.9 - Pneumonia, unspecified organism (2) UTI (urinary tract infection): Urinary tract infection type: site unspecified Hematuria presence: without hematuria Qualified Codes: N39.0 - Urinary tract infection, site not specified (3) Respiratory failure: Chronicity: acute Respiratory failure complication: hypoxia Qualified Codes: J96.01 - Acute respiratory failure with hypoxia CHEVY FARIAS MD Oct 31, 2021 08:10
[2021-10-31] MEDS: CLOPIDOGREL 75 MG (PLAVIX) TABLET PO SCH (08:26)
[2021-10-31] MEDS: ASPIRIN 81 MG CHEW (CHILDREN'S ASA) PO SCH (08:26)
[2021-10-31] MEDS: PANTOPRAZOLE 40 MG (PROTONIX) TAB PO SCH (08:26)
[2021-10-31] MEDS: ENOXAPARIN 40 MG/0.4 ML (LOVENOX) SYR SC SCH (08:27)
[2021-10-31] MEDS: RT-ALBUTEROL/IPRATROPIUM 3 ML (DUONEB) VIAL INH SCH (09:58)
== END 2021-10-31 14:00 | disposition home health service (06) | DRG 853 ==
LOC: EDUNIT# 09:43 → ER FS 09:44 → ICU 14:22 → 4TH 10-24 14:44
PROVIDERS: ADMIT Internal Medicine; ATTEND Internal Medicine
PROC: 5A1945Z Respiratory Ventilation, 24-96 Consecutive Hours (ICD-10-PCS; 2021-10-21)
PROC: 0DTF0ZZ Resection of Right Large Intestine, Open Approach (ICD-10-PCS; principal; 2021-10-21 19:53)
DX: A41.9 Sepsis, unspecified organism (principal); R65.21 Severe sepsis with septic shock; J96.01 Acute respiratory failure with hypoxia; J18.9 Pneumonia, unspecified organism; K55.039 Acute (reversible) ischemia of large intestine, extent unspecified; I50.33 Acute on chronic diastolic (congestive) heart failure; G93.41 Metabolic encephalopathy; N39.0 Urinary tract infection, site not specified; Z20.822 Contact with and (suspected) exposure to COVID-19; E87.1 Hypo-osmolality and hyponatremia; E87.2 Acidosis; N17.9 Acute kidney failure, unspecified; J44.0 Chronic obstructive pulmonary disease with (acute) lower respiratory infection; J44.1 Chronic obstructive pulmonary disease with (acute) exacerbation; I95.9 Hypotension, unspecified; F17.210 Nicotine dependence, cigarettes, uncomplicated; E03.9 Hypothyroidism, unspecified; E78.00 Pure hypercholesterolemia, unspecified; E78.5 Hyperlipidemia, unspecified; M19.91 Primary osteoarthritis, unspecified site; F41.9 Anxiety disorder, unspecified; E87.6 Hypokalemia; I11.0 Hypertensive heart disease with heart failure; E11.65 Type 2 diabetes mellitus with hyperglycemia; I73.9 Peripheral vascular disease, unspecified; I25.2 Old myocardial infarction; Z91.81 History of falling; Z96.652 Presence of left artificial knee joint; Z88.1 Allergy status to other antibiotic agents; Z88.0 Allergy status to penicillin; Z99.81 Dependence on supplemental oxygen; T38.0X5A Adverse effect of glucocorticoids and synthetic analogues, initial encounter
CPT/HCPCS: 36415; 51702; 70450; 71045; 71275; 74177; 80048; 80053; 80202; 81000; 82805; 82947; 83605; 83690; 83735; 83880; 84100; 84478; 84484; 85007; 85025; 85027; 85379; 85610; 85730; 87040; 87070; 87077; 87081; 87088; 87186; 87205; 87636; 87804; 88307; 93005; 93306; 94002; 94003; 94640; 94760; 94761; 94799; 96374; 96375; 99291

== ENCOUNTER 2021-11-03 11:53 | Inpatient (IN) | payer MEDICARE ==
[~2021-11-03] VITALS: Ht 175 cm; Wt 124.6 kg
[~2021-11-03 11:53] MED LIST changes: +ACHD5005 PO; +ALPR0.5T7 PO; +AMIT25TA9 PO; +ASPI-1238 PO; +ATOR80TA76 PO; +BUDE10.2 INH; +CALC600T91 PO; +CLOP75TA28 PO; +DICY10CA12 PO; +EMPA10TA PO; +GABA-490 PO; +INSN1U SQ; +INSU100V31 SQ; +LEVO88TA54 PO; +METO-333 PO; +OMEG-160 PO; +PANT40TA52 PO; +PRED5TAB PO; +ROPI2TAB6 PO; +TIZA-169 PO; +TORS20TA3 PO
--- OUTSIDE RECORDS SUMMARY | 2021-11-03 11:56 | XMS REPORT | Encounter Summary ---
Author Author [facility] Organization [facility] Address Unknown Phone Unavailable Care Team Providers Care Supervisor Of Guidance And Testing Name Role Phone Jayjay Rendon MD PCP Reason for Visit * Reason Comments Medication Refill Encounter Details Care Team Description Date Type Department Heidy rOtega MD [address] [place] [address] Medication Ref[facility]2021 [facility] [address] [place] [address] Social History Date Tobacco Use Types Packs/Day [...] Type Specialty Bill Zamudio, ALISHA [address] [facility] [address] [place] [address] 03/29/2022 Video Visit Cardiology documented as of this encounter Visit Diagnoses Not on filedocumented in this encounter Care Teams Start Date End Date Supervisor Of Guidance And Testing Relationship Specialty 06/20/21 Jayjay Rendon MD PCP - General [address] [address] documented as of this encounter
--- OUTSIDE RECORDS SUMMARY | 2021-11-03 11:56 | XMS REPORT | Clinical Summary ---
Author Author [facility] Organization [facility] Address Unknown Phone Unavailable Care Team Providers Care Network Support Specialist Name Role Phone Jayjay Rendon MD PCP [...] every 0 12 (twelve) hours as needed. Active clopidogreL (PLAVIX) 75 TAKE ONE (1) 30 tablet 2 1 mg tablet TABLET (75 MG 1 TOTAL) BY MOUTH DAILY. 10/22/2021 Discontinued clopidogreL (PLAVIX) 75 Take 1 tablet 30 tablet 2 mg tablet (75 mg total) 1 by mouth daily. Active Problems Problem Noted Date NSTEMI (non-ST elevated myocardial infarction) 06/21 Last Assessment & Plan: Formatting of this note might be differ ent from the original. Echo with normal EF and no R [facility] with PCI to RCA on 06/22/21 Continue DAPT, high intensity statin, b eta-keerthi Jardiance cost check pending Tobacco abuse 06/20/2021 Last Assessment & Plan: Formatting of this note might be differ ent from the original. 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 Refill (Plavix) 09/30/2021 Telephone Cardiology Heidy Ortega MD Medication Refill 09/30/2021 Refill General Internal [place] Kristopher Panda MD Atherosclerosis of [place] coronary arter y of [place] heart without angina pectoris (Primary Dx); S/P drug eluting coronary stent placement; Mixed hyperlipidemia; custodial (current) use of antithrombotics/antiplatelets; Tobacco abuse 09/23/2021 Video Visit Cardiology Heidy Ortega MD Medication Refill 09/22/2021 Refill General Internal Me Heidy Phoenix MD Medication Refill 09/21/2021 Refill General Internal Me Kat Mulligan RN 09/21/2021 Abstract Cardiology Heidy [...] Type Specialty Bill Zamudio, ALISHA [address] 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 11/26/2021 [id number] / [id number] / [id number] [employer] 3.25 Mm X 15 Mm De Stent Stent ABB ALEXIS - [id number] VASCULAR Implanted: Qty: 1 on 06/22/2021 by Larry Lord MD at [facility] Procedures Comments Procedure Name Priority Date/Time [...] / Dates Group MEDICARE REPLACEMENT PLAN [employer] [id number] 2019-P [address] MEDICARE resent [id number] [employer], [place] [address] [id number] [facility] (Home) [place] [address] Nikolay Quirozkiley Personal/F Self 1950 [id number] [facility] (Home) [place], [place] [address] Advance Directives For more information, please contact: [phone] Patient Supervisory Geographer Explanation Type Date Recorded Health Care Directive Health Care 06/22/2021 7:29 PM Directive Date Inactivated Comments Code Status Date Activated Full Code 06/22/2021 10:04 AM 06/22/2021 10:04 AM Full Code 06/20/2021 6:49 PM Care Teams Start Date End Date Network Support Specialist Relationship Specialty 06/20/21 Jayjay Rendon MD PCP - General [address] [id number]
[2021-11-03] MEDS ORDERED: NS IV 1000 ML 1,000 ML ONE (12:01)
[2021-11-03] MEDS ORDERED: NS IV 1000 ML 1,000 ML IV STA (12:12)
--- NOTE | 2021-11-03 12:13 | ED General ---
General Source of Information: Patient, EMS, Old Records History of Present Illness Date Seen by Provider: Nov 03, 2021 Time Seen by Provider: 11:55 Initial Comments 71-year-old female presenting by EMS with complaints of decreased responsiveness. She has recently been in the hospital for respiratory failure and then found to have acute ischemic bowel requiring bowel resection. She was discharged to home on Monday and reports that she has not eat or drink very much since she got home. She has not had a bowel movement since she got home and denies having passed any bowel gas since she got home. She denies having fever or chills. She has had some nausea but no vomiting. She denies pain with urination but has had decreased urination. She wears oxygen at home for her COPD. She primarily wears this at night when she is sleeping. She has been sleeping more since discharge from the hospital. Timing/Duration: 2-3 Days Associated Systoms: No Chest Pain, No Cough, No Diaphoresis; Fever/Chills (chills but no fever); No Headaches; Loss of Appetite, Malaise; No Nausea/Vomiting, No Rash, No Seizure; Shortness of Air (chronic with COPD); No Syncope; Weakness (generalized) Allergies and Home Medications Allergies Coded Allergies: Penicillins (Unverified Adverse Reaction, Unknown, 01/16/21) cephalexin (Unverified Adverse Reaction, Unknown, 01/16/21) ciprofloxacin (Unverified Adverse Reaction, Unknown, 01/16/21) erythromycin base (Unverified Adverse Reaction, Unknown, 01/16/21) Patient Home Medication List Home Medication List Reviewed: Yes Alprazolam (Alprazolam) 0.5 Mg Tablet, 0.5 MG PO TID PRN for ANXIETY, (Reported) Entered as Reported by: FARHEEN PASTOR on 10/22/21 1021 Amitriptyline HCl (Amitriptyline HCl) 25 Mg Tablet, 25 MG PO HS, (Reported) Entered as Reported by: FARHEEN PASTOR on 10/22/21 1021 Aspirin (Aspirin EC) 81 Mg Tablet.dr, 81 MG PO DAILY, (Reported) Entered as Reported by: FARHEEN PASTOR on 10/22/21 1021 Atorvastatin Calcium (Atorvastatin Calcium) 80 Mg Tablet, 80 MG PO HS, (Reported) Entered as Reported by: FARHEEN PASTOR on 10/22/21 1021 Budesonide/Formoterol Fumarate (Symbicort 160-4.5 Mcg Inhaler) 10.2 Gm Hfa.aer.ad, 2 PUFF INH BID, (Reported) Entered as Reported by: FARHEEN PASTOR on 10/22/21 1301 Calcium Carbonate (Calcium) 600 Mg Tablet, 600 MG PO DAILY, (Reported) Entered as Reported by: FARHEEN PASTOR on 10/22/21 1021 Clopidogrel Bisulfate (Clopidogrel) 75 Mg Tablet, 75 MG PO DAILY, (Reported) Entered as Reported by: FARHEEN PASTOR on 10/22/21 1021 Dicyclomine HCl (Dicyclomine HCl) 10 Mg Capsule, 10 MG PO QIDACHS, (Reported) Entered as Reported by: FARHEEN PASTOR on 10/22/21 1021 Empagliflozin (Jardiance) 10 Mg Tablet, 10 MG PO DAILY, (Reported) Entered as Reported by: FARHEEN PASTOR on 10/22/21 1021 Gabapentin (Gabapentin) 400 Mg Capsule, 400 MG PO TID, (Reported) Entered as Reported by: FARHEEN PASTOR on 10/22/21 1021 Hydrocodone/Acetaminophen (Hydrocodone-Acetamin 5-325 mg) 1 Each Tablet, 1 EA PO Q6H PRN for PAIN-MODERATE (5-7), (Reported) Entered as Reported by: FARHEEN PASTOR on 10/22/21 1021 Insulin NPH Human Isophane (Novolin N) 100 Unit/1 Ml Vial, 10 UNIT SQ TID, (Reported) Entered as Reported by: FARHEEN PASTOR on 10/22/21 1254 Insulin Regular, Human (Novolin R) 100 Unit/1 Ml Vial, 10 UNIT SQ TID, (Reported) Entered as Reported by: FARHEEN PASTOR on 10/22/21 1254 Levothyroxine Sodium (Levothyroxine Sodium) 88 Mcg Tablet, 88 MCG PO DAILY, (Reported) Entered as Reported by: FARHEEN PASTOR on 10/22/21 1021 [place]-3/Dha/Epa/Fish Oil (Fish Oil 1,000 mg Softgel) 1 Each Capsule, 1 EACH PO DAILY, (Reported) Entered as Reported by: FARHEEN PASTOR on 10/22/21 1021 Pantoprazole Sodium (Pantoprazole Sodium) 40 Mg Tablet.dr, 40 MG PO DAILY, (Reported) Entered as Reported by: FARHEEN PASTOR on 10/22/21 1021 Prednisone (Prednisone) 5 Mg Tablet, 5 MG PO DAILY, (Reported) Entered as Reported by: FARHEEN PASTOR on 10/22/21 1254 Ropinirole HCl (Ropinirole HCl) 2 Mg Tablet, 4 MG PO HS, (Reported) Entered as Reported by: FARHEEN PASTOR on 10/22/21 1021 Tizanidine HCl (Tizanidine HCl) 2 Mg Tablet, 2 MG PO TID PRN for MUSCLE SPASMS, (Reported) Entered as Reported by: FARHEEN PASTOR on 10/22/21 1021 Torsemide (Torsemide) 20 Mg Tablet, 20 MG PO DAILY, (Reported) Entered as Reported by: FARHEEN PASTOR on 10/22/21 1021 Review of Systems Review of Systems Constitutional: chills; No fever; malaise, weakness EENTM: no symptoms reported Respiratory: short of breath (chronic and on Home O2) Cardiovascular: No chest pain; edema Gastrointestinal: abdominal pain (diffuse abdominal pain with palpation and m ovement), constipation (no BM since d/c home. denies passing gas since getting home.); No diarrhea; loss of appetite Genitourinary: decreased output; No dysuria Musculoskeletal: muscle weakness (general) Skin: change in color (bruising to right lower abdomen from recent surgery) Psychiatric/Neurological: Weakness (general weakness and decreased responsiveness) Hematologic/Lymphatic: Easy Bruising Immunological/Allergic: no symptoms reported Past Mnuqcxb-Hntxza-Pdokfm Hx Immunizations Up To Date Tetanus Booster (TDap): Unknown First/Initial COVID19 Vaccinat: UTD Second COVID19 Vaccination Lon: UTD Third COVID19 Vaccination Date: 01/2021 Seasonal Allergies Seasonal Allergies: No Past Medical History Surgery/Hospitalization HX: HTN, DM, COPD with O2 dependency at night, frequent falls, Hypothyroidism Surgeries: Yes (Bilat knee arthroscopy, L TKR, Bladder suspension, Pituitary tumor exc) Bladder Surgery, Gallbladder, Joint Replacement, Orthopedic Respiratory: Yes (Tobaccoism) COPD Cardiac: Yes Heart Attack, High Cholesterol, Hypertension, Peripheral Vascular Neurological: No Genitourinary: Yes (Bladder suspension for incont) Bladder Infection Gastrointestinal: Yes (EGD/Colonoscopy; 4 ulcers) Gastroesophageal Reflux Musculoskeletal: Yes Arthritis Endocrine: Yes Hypothyroidsim, Diabetes, Non-Insulin dep HEENT: No Cancer: No Psychosocial: Yes Anxiety Integumentary: No (thin skin with numerous skin tears/ecchymosis) Blood Disorders: No Physical Exam Vital Signs Vital Signs - First Documented 11/03/21 11:55 Temp 36.1 Pulse 89 Resp 31 B/P (MAP) 97/61 (73) Pulse Ox 95 O2 Delivery Nasal Cannula O2 Flow Rate 5.00 Capillary Refill : Height, Weight, BMI Height: '" Weight: lbs. oz. kg; 37.33 BMI Method: General Appearance: Chronically ill, Obese, Other (decreased responsiveness. arouses to voice) HEENT: No Moist Mucous Membranes (dry mucous membranes) Respiratory: Chest Non Tender, No Accessory Muscle Use, No Respiratory Distress, Decreased Breath Sounds; No Rhonci, No Stridor Cardiovascular: Regular Rate, Rhythm; No Normal Peripheral Pulses (1/4 pulses radial, femoral, dp bilateral) Gastrointestinal: No Pulsatile Mass, Soft, Abnormal Bowel Sounds (hypoactive), Distended, Rebound, Tenderness Rectal: Deferred Extremity: Pedal Edema (1+) Neurologic/Psychiatric: No Alert (awakens to voice, otherwise somnolent); Oriented x3, heel seat trimmer II-XII Norm as Tested Skin: Cool, Mottled Focused Exam Sepsis Stage: Severe Sepsis Possible Source: Pulmonary Lactate Level 11/03/21 12:08: Lactic Acid Level 4.38*H 11/03/21 14:12: Lactic Acid Level 2.52*H Time of Focused Exam: 14:00 Respiratory: Chest Non Tender, No Accessory Muscle Use, No Respiratory Distress, Decreased Breath Sounds Cardiovascular: Regular Rate, Rhythm, Normal Peripheral Pulses Capillary Refill: Less Than 3 Seconds Peripheral Pulses: 2+ Femoral (R), 2+ Femoral (L), 2+ Radial Pulses (R), 2+ Radial Pulses (L) Skin: normal color, warm/dry Lactic Acid Level Laboratory Tests Test 11/03/21 12:08 11/03/21 14:12 Lactic Acid Level 4.38 MMOL/L (0.50-2.00) *H 2.52 MMOL/L (0.50-2.00) *H Within 3hrs of presentation: Admin fluids, Admin ABX, Blood cultures prior to ABX's, Focus exam, Lactate level Procedures/Interventions Date of ETT Placement: Oct 21, 2021 Suture Size: 4-0 Progress/Results/Core Measures Suspected Sepsis SIRS Temperature: Pulse: Respiratory Rate: Laboratory Tests 11/03/21 12:08: White Blood Count 25.2H Blood Pressure / Mean: 11/03/21 12:08: Lactic Acid Level 4.38*H 11/03/21 14:12: Lactic Acid Level 2.52*H Laboratory Tests 11/03/21 12:08: Creatinine 1.75H, INR Comment 1.3, Platelet Count 301, Total Bilirubin 0.9 Results/Orders Lab Results Laboratory Tests Test 11/03/21 12:08 11/03/21 12:25 11/03/21 14:12 Range/Units White Blood Count 25.2 H 4.3-11.0 10^3/uL Red Blood Count 3.43 L 3.80-5.11 10^6/uL Hemoglobin 9.7 L 11.5-16.0 g/dL Hematocrit 30 L 35-52 % Mean Corpuscular Volume 88 80-99 fL Mean Corpuscular Hemoglobin 28 25-34 pg Mean Corpuscular Hemoglobin Concent 32 32-36 g/dL Red Cell Distribution Width 17.5 H 10.0-14.5 % Platelet Count 301 130-400 10^3/uL Mean Platelet Volume 10.7 9.0-12.2 fL Immature Granulocyte % (Auto) 1 % Neutrophils (%) (Auto) 81 H 42-75 % Lymphocytes (%) (Auto) 11 L 12-44 % Monocytes (%) (Auto) 7 0-12 % Eosinophils (%) (Auto) 0 0-10 % Basophils (%) (Auto) 0 0-10 % Neutrophils # (Auto) 20.2 H 1.8-7.8 X 10^3 Lymphocytes # (Auto) 2.9 1.0-4.0 X 10^3 Monocytes # (Auto) 1.7 H 0.0-1.0 X 10^3 Eosinophils # (Auto) 0.0 0.0-0.3 10^3/uL Basophils # (Auto) 0.1 0.0-0.1 10^3/uL Immature Granulocyte # (Auto) 0.3 H 0.0-0.1 10^3/uL Neutrophils % (Manual) 70 % Lymphocytes % (Manual) 11 % Monocytes % (Manual) 6 % Eosinophils % (Manual) 0 % Basophils % (Manual) 0 % Band Neutrophils 13 % Platelet Estimate NORMAL Hypochromasia 1+ Prothrombin Time 16.3 H 12.2-14.7 SEC INR Comment 1.3 0.8-1.4 Activated Partial Thromboplast Time 33 24-35 SEC Sodium Level 133 L 135-145 MMOL/L Potassium Level 3.3 L 3.6-5.0 MMOL/L Chloride Level 93 L 98-107 MMOL/L Carbon Dioxide Level 19 L 21-32 MMOL/L Anion Gap 21 H 5-14 MMOL/L Blood Urea Nitrogen 7 7-18 MG/DL Creatinine 1.75 H 0.60-1.30 MG/DL Estimat Glomerular Filtration Rate 29 BUN/Creatinine Ratio 4 Glucose Level 230 H 70-105 MG/DL Lactic Acid Level 4.38 *H 2.52 *H 0.50-2.00 MMOL/L Calcium Level 8.1 L 8.5-10.1 MG/DL Corrected Calcium 9.3 8.5-10.1 MG/DL Magnesium Level 1.2 L 1.6-2.4 MG/DL Total Bilirubin 0.9 0.1-1.0 MG/DL Aspartate Amino Transf (AST/SGOT) 34 5-34 U/L Alanine Aminotransferase (ALT/SGPT) 12 0-55 U/L Alkaline Phosphatase 131 40-136 U/L Troponin I < 0.30 <0.30 NG/ML Pro-B-Type Natriuretic Peptide 94355.0 H <75.0 PG/ML Total Protein 6.7 6.4-8.2 GM/DL Albumin 2.5 L 3.2-4.5 GM/DL Lipase 9 8-78 U/L Urine Color YELLOW Urine Clarity CLOUDY Urine pH 6.0 5-9 Urine Specific [place] 1.010 L 1.016-1.022 Urine Protein NEGATIVE NEGATIVE Urine Glucose (UA) 3+ H NEGATIVE Urine Ketones NEGATIVE NEGATIVE Urine Nitrite NEGATIVE NEGATIVE Urine Bilirubin NEGATIVE NEGATIVE Urine Urobilinogen 0.2 < = 1.0 MG/DL Urine Leukocyte Esterase 1+ H NEGATIVE Urine RBC (Auto) TRACE-I H NEGATIVE Urine RBC 5-10 H /HPF Urine WBC 50-100 H /HPF Urine Squamous Epithelial Cells 2-5 /HPF Urine Crystals NONE /LPF Urine Bacteria TRACE /HPF Urine Casts NONE /LPF Urine Mucus SMALL H /LPF Urine Yeast LARGE H /HPF Urine Culture Indicated YES My Orders Orders - CANDY LE MD Ns Iv 1000 Ml (Sodium Chloride 0.9%) (11/03/21 12:01) Cbc With Automated Diff (11/03/21 12:08) Magnesium (11/03/21 12:08) Ekg Tracing (11/03/21 12:08) Comprehensive Metabolic Panel (11/03/21 12:08) Protime With Inr (11/03/21 12:08) Partial Thromboplastin Time (11/03/21 12:08) O2 (11/03/21 12:08) Monitor-Rhythm Ecg Trace Only (11/03/21 12:08) Ed Iv/Invasive Line Start (11/03/21 12:08) Lipase (11/03/21 12:08) Troponin I Fs (11/03/21 12:08) Probnp Fs (11/03/21 12:08) Blood Culture (11/03/21 12:08) Parker Cath (11/03/21 12:08) Ct Head Wo (11/03/21 12:08) Ct Chest/Abdomen/Pelvis W (11/03/21 12:08) Lactic Acid Analyzer (11/03/21 12:08) Ns Iv 1000 Ml (Sodium Chloride 0.9%) (11/03/21 12:12) Iohexol Injection (Omnipaque 350 Mg/Ml 1 (11/03/21 12:30) Received Contrast (Hold Metformin- Contr (11/03/21 12:30) Sodium Chloride Flush (Catheter Flush Sy (11/03/21 12:30) Ns (Ivpb) (Sodium Chloride 0.9% Ivpb Bag (11/03/21 12:30) Manual Differential (11/03/21 12:08) Ua Culture If Indicated (11/03/21 12:29) Urine Culture (11/03/21 12:25) Vancomycin Injection (Vancomycin Injecti (11/03/21 13:47) Lactated Ringers (Lr 1000 Ml Iv Solution (11/03/21 14:15) Ed Admission (Communication) (11/03/21 14:16) Medications Given in ED Current Medications Medications Dose Ordered Sig/Shorty Route Start Time Stop Time Status Last Admin Dose Admin Iohexol 100 ml ONCE ONCE IV 11/03/21 12:30 11/03/21 12:31 DC 11/03/21 13:12 100 ML Sodium Chloride 10 ml NEEDED PRN IV 11/03/21 12:30 11/03/21 13:12 10 ML Sodium Chloride 100 ml ONCE ONCE IV 11/03/21 12:30 11/03/21 12:31 DC 11/03/21 13:12 100 ML Vital Signs/I&O 11/03/21 11/03/21 11:55 12:00 Temp 36.1 Pulse 89 Resp 31 B/P (MAP) 97/61 (73) Pulse Ox 95 92 O2 Delivery Nasal Cannula Nasal Cannula O2 Flow Rate 5.00 5.00 Capillary Refill : Progress Note #1: Progress Note Obtain labs as well as urinalysis. Place a Parker catheter to monitor urine output. Obtain IV access to give IV fluids for hydration and low blood pressure. With her decreased responsiveness and having low blood pressure as well as recent surgery and increased diffuse abdominal pain will order blood cultures with lactic acid. Start with 2 L of normal saline IV bolus for hydration and hypotension. Differential diagnosis includes sepsis, recurrent ischemic bowel, stroke, pneumonia, urinary tract infection, electrolyte imbalance, anemia, renal failure, hepatic failure Progress Note #2: Progress Note Labs show elevated lactic acid over 4. White blood cell count is doubled from 11.7 at discharge to over 25,000 with a left shift now. Chemistry panel does show acute kidney injury with elevated creatinine to 1.75. Her urine showed elevated white blood cell count. There was leukocyte esterase and some yeast but only small amount of bacteria. With her having elevated proBNP over 13,000 and history of heart failure will stop that 1 L bolus since the blood pressure has significantly improved with the single liter. We will be rechecking her lactic Acid level since she had level over 4 initially. Progress Note #3: Progress Note CT scan of the head did not show any acute process. The CT scan of the chest abdomen pelvis showed persistent bilateral pulmonary infiltrates and findings suggestive for an ileus. There was no evidence of recurrent bowel ischemia currently. No fluid collection. There are postop changes present. Discussed with patient and family about findings and results. On repeat exam p atient has much better color and the mottling that was present in her lower extremities is resolved. She is more awake and alert. They are agreeable to being admitted. Discussed with Dr. Zamora and she accepted the patient for admission. ECG Initial ECG Impression Date: Nov 03, 2021 Initial ECG Impression Time: 12:24 Initial ECG Rate: 86 Initial ECG Rhythm: Normal Sinus Initial ECG Comparisson: Unchanged Comment Normal sinus rhythm with a heart rate of 86 bpm. PA interval [address] elevation. Repolarization changes in the lateral leads. QT interval 352 ms with a QTc interval of 421 ms. Appears similar to prior tracings in the system Diagnostic Imaging Diagonstic Imaging: CT Plain Films/CT/US/NM/MRI: head Comments NAME: SOUMYA RIOS [facility] REC#: [id number] PT STATUS: REG ER : 1950 PHYSICIAN: CANDY LE MD ADMIT DATE: 11/03/21/ER FS Draft Date of Exam:11/03/21 CT HEAD WO PROCEDURE: CT head without contrast. TECHNIQUE: Multiple contiguous axial images were obtained through the brain without the use of intravenous contrast. Auto Exposure Controls were utilized during the CT exam to meet ALARA standards for radiation dose reduction. INDICATION: Decreased responsiveness COMPARISON: 10/21/2021 CT HEAD: CT images of the head were obtained. FINDINGS: Ventricles and sulci are within normal limits for size. There is no intracranial hemorrhage identified. There is no abnormal mass effect or shift of midline structures. Chronic appearing sphenoid sinus mucosal disease is again noted. IMPRESSION: Unremarkable CT of the head. Dictated on workstation # [id number] Dict: 11/03/21 1304 Trans: 11/03/21 1308 [facility] [id number] Interpreted by: CHERRI URBANO MD Electronically signed by: Reviewed: Reviewed by Ct Diagonstic Imaging: CT Plain Films/CT/US/NM/MRI: chest, abdomen, pelvis Comments NAME: SOUMYA RIOS [facility] REC#: [id number] PT STATUS: REG ER : 1950 PHYSICIAN: CANDY LE MD ADMIT DATE: 11/03/21/ER FS Draft Date of Exam:11/03/21 CT CHEST/ABDOMEN/PELVIS W PROCEDURE: CT chest, abdomen, and pelvis with contrast. TECHNIQUE: Multiple contiguous axial images were obtained through the chest, abdomen, and pelvis after the administration of intravenous contrast. Auto Exposure Controls were utilized during the CT exam to meet ALARA standards for radiation dose reduction. INDICATION: Hypertension, abdominal pain and recent colon resection, pulmonary infiltrates COMPARISON: 10/21/2021. CT CHEST: The heart is enlarged with coronary artery disease. There is no pericardial effusion. There is atherosclerotic change throughout the thoracic aorta. No obvious large central pulmonary embolism is identified. There is subsegmental atelectasis in the left base. The pleural effusions have resolved. The infiltrates bilaterally persist and are unchanged. There is no pneumothorax. Osseous structures are stable. IMPRESSION: 1. Resolved small bilateral pleural effusions 2. Unchanged bilateral pulmonary infiltrates 3. Cardiac enlargement with coronary artery disease and not mentioned above advanced mitral and aortic valvular heart disease. CT abdomen pelvis. There is a mild to moderate distention of the stomach and several bowel loops including the colon likely diffuse ileus. There is no free air or free fluid. Postoperative changes are seen involving the proximal colon. There is no postoperative abscess. There is advanced atherosclerotic disease of the abdominal aorta and visceral branch vessels. No obvious solid organ or bowel ischemia is identified. The gallbladder is surgically absent. Solid organs are stable. Urinary bladder is decompressed with a Parker catheter. Osseous structures are unremarkable. IMPRESSION: 1. Suspect diffuse ileus. The patient may benefit from NG tube placement 2. No abscess, free air or free fluid. 3. postoperative changes involving the proximal colon. 4. Advanced atherosclerotic disease without obvious solid organ or bowel ischemia. Dictated on workstation # [id number] Dict: 11/03/21 1314 Trans: 11/03/21 1320 [facility] [id number] Interpreted by: MAYITO RACHEL Electronically signed by: Reviewed: Reviewed by Ct Critical Care Note Critical Care Total Time (minutes) 45 minutes Progress 45 minutes of critical care time was spent with the patient. This time was excluding separately billable procedures. Time was spent in obtaining history from the patient, family, electronic medical record, ordering lab and reviewing results, ordering radiology imaging and reviewing results, ordering interventions and reviewing response, discussion with consultants, documentation in the chart. Patient was at risk of compromise of her cardiac system and required my direct attention and intervention to help prevent deterioration. Departure Communication (Admissions) Time/Spoke to Admitting Phy: 14:[address] Zamora for the [facility] since patient follows with Dr. Claire. She accepted the patient for her sepsis as well as bilateral pneumonia, dehydration with acute kidney injury, ileus. She will place queued orders for the patient Impression Primary Impression: Sepsis Qualified Codes: A41.9 - Sepsis, unspecified organism; R65.20 - Severe sepsis without septic shock; N17.9 - Acute kidney failure, unspecified Additional Impressions: Dehydration Acute kidney injury Decreased responsiveness Bilateral pneumonia Qualified Codes: J18.9 - Pneumonia, unspecified organism Ileus Disposition: 30 STILL A PATIENT Condition: Critical Admissions Decision to Admit Reason: Admit from ER (General) Decision to Admit/Date: Nov 03, 2021 Time/Decision to Admit Time: 14:16 Departure-Patient Inst. Referrals: MAYCOL CLAIRE MD (PCP/Family) Primary Care Physician CANDY LE MD Nov 03, 2021 12:13
[2021-11-03 12:27] LABS: BASOPHILS % (AUTO) 0 % (0-10); EOSINOPHILS % (AUTO) 0 % (0-10); HEMATOCRIT 30 % (35-52); HEMOGLOBIN 9.7 g/dL (11.5-16.0); LYMPHOCYTES % (AUTO) 11 % (12-44); MEAN CORPUSCULAR HEMOGLOBIN 28 pg (25-34); MEAN CORPUSCULAR HGB CONC 32 g/dL (32-36); MEAN CORPUSCULAR VOLUME 88 fL (80-99); MEAN PLATELET VOLUME 10.7 fL (9.0-12.2); MONOCYTES % (AUTO) 7 % (0-12); PLATELET COUNT 301 10^3/uL (130-400); WHITE BLOOD COUNT 25.2 10^3/uL (4.3-11.0)
[2021-11-03 12:28] LABS: BASOPHILS # (AUTO) 0.1 10^3/uL (0.0-0.1); LYMPHOCYTES # (AUTO) 2.9 X 10^3 (1.0-4.0); MONOCYTES # (AUTO) 1.7 X 10^3 (0.0-1.0); NEUTROPHILS # (AUTO) 20.2 X 10^3 (1.8-7.8); NEUTROPHILS % (AUTO) 81 % (42-75)
[2021-11-03] MEDS ORDERED: CATHETER FLUSH 10 ML SYR IV PRN (12:30)
[2021-11-03] MEDS ORDERED: IOHEXOL 350 MG/ML 100 ML (OMNIPAQUE 350) VIAL IV ONE (12:30)
[2021-11-03] MEDS ORDERED: HOLD METFORMIN - RECEIVED CONTRAST 20 ML VIAL IV SCH (12:30)
[2021-11-03] MEDS ORDERED: NS 100 ML (IVPB) BAG IV ONE (12:30)
[2021-11-03 12:36] LABS: BILIRUBIN,URINE NEGATIVE (NEGATIVE); COLOR,URINE YELLOW; GLUCOSE, URINE (UA) 3+ (NEGATIVE); KETONES,URINE NEGATIVE (NEGATIVE); LEUKOCYTE ESTERASE ,URINE 1+ (NEGATIVE); NITRITE,URINE NEGATIVE (NEGATIVE); PROTEIN,URINE NEGATIVE (NEGATIVE)
[2021-11-03 12:45] LABS: BACTERIA,URINE TRACE /HPF; CLARITY,URINE CLOUDY; WBC,URINE 50-100 /HPF
[2021-11-03 12:46] LABS: YEAST,URINE LARGE /HPF
[2021-11-03 12:54] LABS: INR 1.3 (0.8-1.4); PROTHROMBIN TIME PATIENT 16.3 SEC (12.2-14.7)
[2021-11-03 12:57] LABS: POTASSIUM 3.3 MMOL/L (3.6-5.0)
[2021-11-03 12:58] LABS: ALBUMIN 2.5 GM/DL (3.2-4.5); BILIRUBIN,TOTAL 0.9 MG/DL (0.1-1.0); CALCIUM 8.1 MG/DL (8.5-10.1); CREATININE SERUM 1.75 MG/DL (0.60-1.30); MAGNESIUM 1.2 MG/DL (1.6-2.4); TOTAL PROTEIN 6.7 GM/DL (6.4-8.2)
--- NOTE | 2021-11-03 13:08 | Diagnostic Imaging Report ---
PROCEDURE: CT head without contrast. TECHNIQUE: Multiple contiguous axial images were obtained through the brain without the use of intravenous contrast. Auto Exposure Controls were utilized during the CT exam to meet ALARA standards for radiation dose reduction. INDICATION: Decreased responsiveness COMPARISON: 10/21/2021 CT HEAD: CT images of the head were obtained. FINDINGS: Ventricles and sulci are within normal limits for size. There is no intracranial hemorrhage identified. There is no abnormal mass effect or shift of midline structures. Chronic appearing sphenoid sinus mucosal disease is again noted. IMPRESSION: Unremarkable CT of the head. Dictated by: Dictated on workstation # [id number]
[2021-11-03 13:14] LABS: BAND NEUTROPHILS 13 %; BASOPHILS % (MANUAL) 0 %; EOSINOPHILS % (MANUAL) 0 %; HYPOCHROMASIA 1+; LYMPHOCYTES % (MANUAL) 11 %; MONOCYTES % (MANUAL) 6 %; NEUTROPHILS % (MANUAL) 70 %; PLATELET ESTIMATE NORMAL
--- NOTE | 2021-11-03 13:20 | Diagnostic Imaging Report ---
PROCEDURE: CT chest, abdomen, and pelvis with contrast. TECHNIQUE: Multiple contiguous axial images were obtained through the chest, abdomen, and pelvis after the administration of intravenous contrast. Auto Exposure Controls were utilized during the CT exam to meet ALARA standards for radiation dose reduction. INDICATION: Hypertension, abdominal pain and recent colon resection, pulmonary infiltrates COMPARISON: 10/21/2021. CT CHEST: The heart is enlarged with coronary artery disease. There is no pericardial effusion. There is atherosclerotic change throughout the thoracic aorta. No obvious large central pulmonary embolism is identified. There is subsegmental atelectasis in the left base. The pleural effusions have resolved. The infiltrates bilaterally persist and are unchanged. There is no pneumothorax. Osseous structures are stable. IMPRESSION: 1. Resolved small bilateral pleural effusions 2. Unchanged bilateral pulmonary infiltrates 3. Cardiac enlargement with coronary artery disease and not mentioned above advanced mitral and aortic valvular heart disease. CT abdomen pelvis. There is a mild to moderate distention of the stomach and several bowel loops including the colon likely diffuse ileus. There is no free air or free fluid. Postoperative changes are seen involving the proximal colon. There is no postoperative abscess. There is advanced atherosclerotic disease of the abdominal aorta and visceral branch vessels. No obvious solid organ or bowel ischemia is identified. The gallbladder is surgically absent. Solid organs are stable. Urinary bladder is decompressed with a Parker catheter. Osseous structures are unremarkable. IMPRESSION: 1. Suspect diffuse ileus. The patient may benefit from NG tube placement 2. No abscess, free air or free fluid. 3. postoperative changes involving the proximal colon. 4. Advanced atherosclerotic disease without obvious solid organ or bowel ischemia. Dictated by: Dictated on workstation # [id number]
[2021-11-03] MEDS ORDERED: VANCOMYCIN INJECTION 1,500 MG in NS IV 500 ML 500 ML IV STA (13:47)
[2021-11-03] MEDS ORDERED: LACTATED RINGERS 1,000 ML IV SCH (14:15)
[2021-11-03] MEDS ORDERED: VANCOMYCIN INJECTION 0.1 MG in NS (IVPB) 250 ML IV SCH (17:15)
[2021-11-03] MEDS ORDERED: polyethylene glycoL POWDER 17 GM (MIRALAX) PACK PO PRN (17:15)
[2021-11-03] MEDS ORDERED: ACETAMINOPHEN 325 MG TABLET PO PRN (17:15)
[2021-11-03] MEDS: NS IV 1000 ML 1,000 ML IV SCH (18:25)
[2021-11-03] MEDS: ENOXAPARIN 40 MG/0.4 ML (LOVENOX) SYR SC SCH (18:36)
[2021-11-03] MEDS: MEROPENEM 500 MG in NS (IVPB) 100 ML IV SCH ×2 (18:36→23:55)
[2021-11-03 18:52] VITALS: BP 75/44
[2021-11-03] MEDS ORDERED: ENOXAPARIN 40 MG/0.4 ML (LOVENOX) SYR SQ SCH (19:00)
[2021-11-03] MEDS ORDERED: VANCOMYCIN 500 MG/NS 100 ML IV NR ×4 (19:00→20:00)
[2021-11-03] MEDS ORDERED: FLUCONAZOLE 200 MG/100 ML 100 ML IV ONE (19:00)
[2021-11-03 19:27] VITALS: BP 97/71
[2021-11-03 19:43] VITALS: BP 112/44
[2021-11-03] MEDS ORDERED: RT-ALBUTEROL SULF 2.5 MG/3 ML PRE-MIX VIAL INH PRN (19:45)
--- NOTE | 2021-11-03 20:16 | CONSULTATION REPORT ---
DATE OF SERVICE: 11/03/2021 ATTENDING PRIMARY CARE PHYSICIAN: Dr. Rendon. ADMITTING PHYSICIAN: Dr. Sheila Zamora. HISTORY OF PRESENT ILLNESS: The patient is a 71-year-old female, who presented to [facility] with decreased responsiveness. She also states that she has not been eating much or drinking much fluid since she returned home from her last admission last Monday. She states that she does have some mild nausea; however, no vomiting. She also reports that she has had decreased urination as well. She is oxygen dependent for severe COPD and does continue to smoke. She was admitted on 10/21/2021 for shortness of breath as well as abdominal pain. A CT scan was performed at that time and she was found to have some mild pleural effusion as well as some mild pulmonary edema. CT scan of the abdomen did show a diffuse colitis as well. She was admitted, started on IV fluids, and IV antibiotics; however, she continued to have worsening abdominal pain as well as increased lactic acid, concerning for ischemic bowel. On 10/21/2021, she underwent an exploratory laparotomy and was found to have an ischemic right colon up to the level of the proximal transverse colon and was also found to have ischemic distal ileum encompassing approximately 100 cm. No perforation was identified. She underwent a right hemicolectomy as well as resection of the distal small bowel as well as ileocolonic anastomosis. She did have a prolonged hospital stay due to her medical comorbidities. However, eventually was able to eat and drink and ambulate with assistance. Upon workup on this admission, she was found to have a urinary tract infection as well as a CT scan showing dilated loops of small bowel consistent with an ileus. PAST MEDICAL HISTORY: Hypercholesterolemia, hypertension, peripheral vascular disease, COPD, coronary artery disease, degenerative joint disease, diabetes, hypothyroid, and history of ischemic bowel. PAST SURGICAL HISTORY: Bilateral lower extremity angioplasty and stent placement, laparoscopic cholecystectomy, left total knee arthroplasty, bladder suspension, pituitary tumor excision, bilateral knee arthroscopy, exploratory laparotomy, resection of distal small bowel, and right hemicolectomy on 10/21/2021. ALLERGIES: PENICILLIN, CEPHALEXIN, and CIPROFLOXACIN. MEDICATIONS: Alprazolam 0.5 mg t.i.d. p.r.n., amitriptyline 25 mg daily, aspirin 81 mg daily, atorvastatin 80 mg daily, Symbicort two puffs b.i.d., Plavix 75 mg daily, dicyclomine 10 mg daily, empagliflozin 10 mg daily, gabapentin 400 mg t.i.d., hydrocodone p.r.n., Novolin insulin 10 units t.i.d., regular insulin 10 units t.i.d., levothyroxine 88 mcg daily, Protonix 40 mg daily, prednisone 5 mg daily, ropinirole 4 mg daily, tizanidine 2 mg daily, and torsemide 20 mg daily. SOCIAL HISTORY: Positive smoke 50 pack years. Negative alcohol. FAMILY HISTORY: Noncontributory. REVIEW OF SYSTEMS: This is a well-nourished female, currently slightly guarded secondary to her shortness of breath. She does not report any new cough or sputum production. No chest pain, palpitations or diaphoresis. Intermittent episodes of nausea as well as abdominal distention. No vomiting. Since being discharged to home on her last admission, she states that she has not been eating much or drinking much fluids and is passing gas; however, has not had a bowel movement. No red blood per rectum and no dark tarry stools. No fever, chills, and no recent inadvertent weight loss. All other review of systems negative. PHYSICAL EXAMINATION: VITAL SIGNS: Temperature 36.1, blood pressure 148/42, pulse 82, respirations 27, and pulse ox 95% on 5 liters nasal cannula. CHEST: Scattered wheezes and rhonchi bilaterally. HEART: Regular and no murmurs. EXTREMITIES: +2/3 bilateral lower extremity edema and negative Homans sign. HEENT: No scleral icterus. NECK: No cervical lymphadenopathy. ABDOMEN: Distended with tympany. Mild diffuse discomfort upon deep palpation. No peritoneal signs. Wound is clean, dry, and intact. No hernias. SKIN: Warm and dry. LABORATORY DATA: WBC 25.2, hemoglobin 9.7, hematocrit 30, and platelets 301. BUN 7 and creatinine 1.75. Lactic acid 1.75. Liver function enzymes normal. Urinalysis, positive leukocyte esterase, large amounts of yeast, and trace amounts of bacteria. ASSESSMENT AND PLAN: A 71-year-old female with a urinary tract infection as well as an ileus. We will proceed with medical management with bowel rest, IV hydration as well as gentle laxatives with MiraLax. We will also treat her urinary tract infection with IV antibiotics as well as antifungal. We will also follow her clinically as well as serial abdominal x-rays. Job ID: [id number] DocumentID: [id number] Dictated Date: 11/03/2021 18:47:32 Paperhanger And Painter Date: 11/03/2021 20:16:12 Dictated By: MONICA FERNANDEZ MD
[2021-11-03] MEDS ORDERED: inSUlin ASPART (NovoLOG) 1 UNIT/0.01 ML (CHARGE PER UNIT) SC SCH (21:00)
[2021-11-03 23:13] VITALS: BP 107/54
[2021-11-04] VITALS (11 sets, daily range): BP systolic 76–133; BP diastolic 38–59
[2021-11-04] MEDS: inSUlin ASPART (NovoLOG) 1 UNIT/0.01 ML (CHARGE PER UNIT) SC SCH ×4 (00:19→17:57)
[2021-11-04] MEDS: RT-ALBUTEROL/IPRATROPIUM 3 ML (DUONEB) VIAL INH SCH ×3 (03:15→21:35)
[2021-11-04 04:32] LABS: BASOPHILS # (AUTO) 0.1 10^3/uL (0.0-0.1); BASOPHILS % (AUTO) 0 % (0-10); EOSINOPHILS # (AUTO) 0.1 10^3/uL (0.0-0.3); EOSINOPHILS % (AUTO) 0 % (0-10); HEMATOCRIT 26 % (35-52); HEMOGLOBIN 8.3 g/dL (11.5-16.0); LYMPHOCYTES # (AUTO) 1.4 10^3/uL (1.0-4.0); LYMPHOCYTES % (AUTO) 5 % (12-44); MEAN CORPUSCULAR HEMOGLOBIN 28 pg (25-34); MEAN CORPUSCULAR HGB CONC 32 g/dL (32-36); MEAN CORPUSCULAR VOLUME 87 fL (80-99); MEAN PLATELET VOLUME 11.2 fL (9.0-12.2); MONOCYTES % (AUTO) 8 % (0-12); NEUTROPHILS % (AUTO) 86 % (42-75); PLATELET COUNT 247 10^3/uL (130-400); WHITE BLOOD COUNT 26.7 10^3/uL (4.3-11.0)
[2021-11-04 04:49] LABS: ALBUMIN 2.1 GM/DL (3.2-4.5); POTASSIUM 3.4 MMOL/L (3.6-5.0)
[2021-11-04 04:50] LABS: CALCIUM 7.1 MG/DL (8.5-10.1)
[2021-11-04 04:52] LABS: TOTAL PROTEIN 5.6 GM/DL (6.4-8.2)
[2021-11-04 04:53] LABS: BILIRUBIN,TOTAL 0.7 MG/DL (0.1-1.0)
[2021-11-04 04:55] LABS: CREATININE SERUM 1.7 MG/DL (0.60-1.30)
[2021-11-04] MEDS: MEROPENEM 500 MG in NS (IVPB) 100 ML IV SCH ×3 (05:55→17:57)
[2021-11-04] MEDS: NS IV 1000 ML 1,000 ML IV SCH ×2 (06:10→20:13)
[2021-11-04] MEDS ORDERED: NS IV 500 ML 500 ML ONE (06:43)
[2021-11-04] MEDS ORDERED: NS IV 500 ML 500 ML IV ONE ×2 (06:45→09:45)
[2021-11-04] MEDS: ENOXAPARIN 40 MG/0.4 ML (LOVENOX) SYR SC SCH (08:19)
[2021-11-04] MEDS: FLUCONAZOLE 200 MG/100 ML 50 ML, EMPTY IV BAG (PVC) 1 EA IV SCH ×2 (08:19)
[2021-11-04] MEDS: PANTOPRAZOLE 40 MG (PROTONIX) VIAL IV SCH (08:19)
[2021-11-04] MEDS: MAGNESIUM 1 GM/100 ML IVPB 100 ML IV SCH ×2 (09:19→11:18)
[2021-11-04] MEDS: POTASSIUM CL 10MEQ/50ML IVPB 50 ML IV SCH ×4 (09:20→11:19)
--- NOTE | 2021-11-04 09:33 | History & Physical ---
HPI History of Present Illness: rELEASED MONDAY NIGHT, DID OKAY MONDAY AND MONDAY BUT STILL COULDN'T EAT WELL. By Monday night she had been having diarrhea a couple of times and was really weak. Yesterday she could hardly hold her head up. Last BM was Monday with the diarrhea. Required 2 person assist to get out of bed to wheelchair, then couldn't transfer her to chair in the living room so they called ambulance. Has felt feverish at home. Very nauseated, vomited a little bit. Denies shortness of breath, coughing. She is usually on oxygen but just at night or as needed. Source: patient, family Date seen by provider: Nov 04, 2021 Time Seen by Provider: 09:36 Attending Physician Sheila Tolentino MD PCP Jayjay Rendon MD Consult Date of Admission Nov 03, 2021 at 15:55 Home Medications Home Medications Reviewed patient Home Medication Reconciliation performed by pharmacy medication reconciliations oven technician and/or nursing. Patients Allergies have been reviewed. Allergies Coded Allergies: Penicillins (Unverified Adverse Reaction, Unknown, 01/16/21) cephalexin (Unverified Adverse Reaction, Unknown, 01/16/21) ciprofloxacin (Unverified Adverse Reaction, Unknown, 01/16/21) erythromycin base (Unverified Adverse Reaction, Unknown, 01/16/21) JNH-Kubjgb-Lespgd Hx Patient Social History Smoking Status: Current Everyday Smoker 2nd Hand Smoke Exposure: Yes Recent Hopitalizations: No Alcohol Use?: No Tobacco type used: Cigarettes Have you traveled recently?: No Immunizations Up To Date Tetanus Booster (TDap): Unknown Influenza Vaccine Up-to-Date: Yes; Up-to-Date First/Initial COVID19 Vaccinat: UTD Second COVID19 Vaccination Lon: UTD Third COVID19 Vaccination Date: 01/2021 Past Medical History PMHx: Congestive heart failure Coronary artery disease with stenting Ischemic bowel requiring resection COPD Diabetes SurgHx: Bowel resection for ischemic colitis Coronary artery stenting Review of Systems ([facility]) Constitutional: fever EENTM: No nose congestion, No throat pain Respiratory: No cough, No short of breath Cardiovascular: No chest pain Genitourinary: No decreased output, No dysuria; incontinence (related to being unable to get moving) Reviewed Test Results Reviewed Test Results Lab Laboratory Tests Test 11/03/21 12:08 11/03/21 12:25 11/03/21 14:12 11/03/21 16:05 Range/Units White Blood Count 25.2 H 4.3-11.0 10^3/uL Red Blood Count 3.43 L 3.80-5.11 10^6/uL Hemoglobin 9.7 L 11.5-16.0 g/dL Hematocrit 30 L 35-52 % Mean Corpuscular Volume 88 80-99 fL Mean Corpuscular Hemoglobin 28 25-34 pg Mean Corpuscular Hemoglobin Concent 32 32-36 g/dL Red Cell Distribution Width 17.5 H 10.0-14.5 % Platelet Count 301 130-400 10^3/uL Mean Platelet Volume 10.7 9.0-12.2 fL Immature Granulocyte % (Auto) 1 % Neutrophils (%) (Auto) 81 H 42-75 % Lymphocytes (%) (Auto) 11 L 12-44 % Monocytes (%) (Auto) 7 0-12 % Eosinophils (%) (Auto) 0 0-10 % Basophils (%) (Auto) 0 0-10 % Neutrophils # (Auto) 20.2 H 1.8-7.8 X 10^3 Lymphocytes # (Auto) 2.9 1.0-4.0 X 10^3 Monocytes # (Auto) 1.7 H 0.0-1.0 X 10^3 Eosinophils # (Auto) 0.0 0.0-0.3 10^3/uL Basophils # (Auto) 0.1 0.0-0.1 10^3/uL Immature Granulocyte # (Auto) 0.3 H 0.0-0.1 10^3/uL Neutrophils % (Manual) 70 % Lymphocytes % (Manual) 11 % Monocytes % (Manual) 6 % Eosinophils % (Manual) 0 % Basophils % (Manual) 0 % Band Neutrophils 13 % Platelet Estimate NORMAL Hypochromasia 1+ Prothrombin Time 16.3 H 12.2-14.7 SEC INR Comment 1.3 0.8-1.4 Activated Partial Thromboplast Time 33 24-35 SEC Sodium Level 133 L 135-145 MMOL/L Potassium Level 3.3 L 3.6-5.0 MMOL/L Chloride Level 93 L 98-107 MMOL/L Carbon Dioxide Level 19 L 21-32 MMOL/L Anion Gap 21 H 5-14 MMOL/L Blood Urea Nitrogen 7 7-18 MG/DL Creatinine 1.75 H 0.60-1.30 MG/DL Estimat Glomerular Filtration Rate 29 BUN/Creatinine Ratio 4 Glucose Level 230 H 70-105 MG/DL Lactic Acid Level 4.38 *H 2.52 *H 1.75 0.50-2.00 MMOL/L Calcium Level 8.1 L 8.5-10.1 MG/DL Corrected Calcium 9.3 8.5-10.1 MG/DL Magnesium Level 1.2 L 1.6-2.4 MG/DL Total Bilirubin 0.9 0.1-1.0 MG/DL Aspartate Amino Transf (AST/SGOT) 34 5-34 U/L Alanine Aminotransferase (ALT/SGPT) 12 0-55 U/L Alkaline Phosphatase 131 40-136 U/L Troponin I < 0.30 <0.30 NG/ML Pro-B-Type Natriuretic Peptide 34942.0 H <75.0 PG/ML Total Protein 6.7 6.4-8.2 GM/DL Albumin 2.5 L 3.2-4.5 GM/DL Lipase 9 8-78 U/L Urine Color YELLOW Urine Clarity CLOUDY Urine pH 6.0 5-9 Urine Specific [place] 1.010 L 1.016-1.022 Urine Protein NEGATIVE NEGATIVE Urine Glucose (UA) 3+ H NEGATIVE Urine Ketones NEGATIVE NEGATIVE Urine Nitrite NEGATIVE NEGATIVE Urine Bilirubin NEGATIVE NEGATIVE Urine Urobilinogen 0.2 < = 1.0 MG/DL Urine Leukocyte Esterase 1+ H NEGATIVE Urine RBC (Auto) TRACE-I H NEGATIVE Urine RBC 5-10 H /HPF Urine WBC 50-100 H /HPF Urine Squamous Epithelial Cells 2-5 /HPF Urine Crystals NONE /LPF Urine Bacteria TRACE /HPF Urine Casts NONE /LPF Urine Mucus SMALL H /LPF Urine Yeast LARGE H /HPF Urine Culture Indicated YES Test 11/04/21 00:09 11/04/21 03:40 11/04/21 05:53 11/04/21 07:55 Range/Units Glucometer 192 H 167 H 70-110 MG/DL White Blood Count 26.7 H 4.3-11.0 10^3/uL Red Blood Count 2.98 L 3.80-5.11 10^6/uL Hemoglobin 8.3 L 11.5-16.0 g/dL Hematocrit 26 L 35-52 % Mean Corpuscular Volume 87 80-99 fL Mean Corpuscular Hemoglobin 28 25-34 pg Mean Corpuscular Hemoglobin Concent 32 32-36 g/dL Red Cell Distribution Width 17.4 H 10.0-14.5 % Platelet Count 247 130-400 10^3/uL Mean Platelet Volume 11.2 9.0-12.2 fL Immature Granulocyte % (Auto) 1 % Neutrophils (%) (Auto) 86 H 42-75 % Lymphocytes (%) (Auto) 5 L 12-44 % Monocytes (%) (Auto) 8 0-12 % Eosinophils (%) (Auto) 0 0-10 % Basophils (%) (Auto) 0 0-10 % Neutrophils # (Auto) 23.0 H 1.8-7.8 10^3/uL Lymphocytes # (Auto) 1.4 1.0-4.0 10^3/uL Monocytes # (Auto) 2.0 H 0.0-1.0 10^3/uL Eosinophils # (Auto) 0.1 0.0-0.3 10^3/uL Basophils # (Auto) 0.1 0.0-0.1 10^3/uL Immature Granulocyte # (Auto) 0.2 H 0.0-0.1 10^3/uL Sodium Level 135 135-145 MMOL/L Potassium Level 3.4 L 3.6-5.0 MMOL/L Chloride Level 102 98-107 MMOL/L Carbon Dioxide Level 20 L 21-32 MMOL/L Anion Gap 13 5-14 MMOL/L Blood Urea Nitrogen 9 7-18 MG/DL Creatinine 1.70 H 0.60-1.30 MG/DL Estimat Glomerular Filtration Rate 30 BUN/Creatinine Ratio 5 Glucose Level 169 H 70-105 MG/DL Calcium Level 7.1 L 8.5-10.1 MG/DL Corrected Calcium 8.6 8.5-10.1 MG/DL Total Bilirubin 0.7 0.1-1.0 MG/DL Aspartate Amino Transf (AST/SGOT) 30 5-34 U/L Alanine Aminotransferase (ALT/SGPT) 13 0-55 U/L Alkaline Phosphatase 114 40-136 U/L Total Protein 5.6 L 6.4-8.2 GM/DL Albumin 2.1 L 3.2-4.5 GM/DL Lactic Acid Level 1.80 0.50-2.00 MMOL/L Test 11/04/21 11:31 Range/Units Glucometer 169 H 70-110 MG/DL Radiology CT abd/pelvis 11/03/21 IMPRESSION: 1. Suspect diffuse ileus. The patient may benefit from NG tube placement 2. No abscess, free air or free fluid. 3. postoperative changes involving the proximal colon. 4. Advanced atherosclerotic disease without obvious solid organ or bowel ischemia. Physical Exam-([facility]) Physical Exam Vital Signs VS - Last 72 Hours, by Label 11/03/21 11/03/21 11/03/21 11/03/21 11:55 12:00 17:05 18:52 Temp 36.1 36.1 36.0 Pulse 89 82 95 Resp 31 27 B/P (MAP) 97/61 (73) 148/42 75/44 (54) Pulse Ox 95 92 95 97 O2 Delivery Nasal Cannula Nasal Cannula Nasal Cannula O2 Flow Rate 5.00 5.00 5.00 5.00 11/03/21 11/03/21 11/03/21 11/03/21 19:00 19:24 19:27 19:43 Temp 36.1 36.1 Pulse 95 89 96 Resp 19 B/P (MAP) 112/44 (66) Pulse Ox 95 98 O2 Delivery Nasal Cannula Nasal Cannula O2 Flow Rate 5.00 5.00 11/03/21 11/03/21 11/03/21 11/03/21 19:50 19:53 21:30 23:13 Temp 36.3 Pulse 89 Resp 18 B/P (MAP) 107/54 (71) Pulse Ox 97 98 98 O2 Delivery Nasal Cannula Nasal Cannula Nasal Cannula Nasal Cannula O2 Flow Rate 5.00 4.00 3.00 3.00 11/04/21 11/04/21 11/04/21 11/04/21 00:42 03:15 04:06 06:30 Temp 36.7 Pulse 89 88 Resp 20 B/P (MAP) 101/44 (63) Pulse Ox 93 93 92 O2 Delivery Nasal Cannula Nasal Cannula Nasal Cannula O2 Flow Rate 3.00 3.00 4.00 11/04/21 11/04/21 11/04/21 11/04/21 07:00 07:00 07:52 08:29 Temp 36.9 Pulse 89 92 87 Resp 22 B/P (MAP) 96/48 (64) Pulse Ox 94 O2 Delivery Nasal Cannula Nasal Cannula O2 Flow Rate 4.00 4.00 FiO2 95 11/04/21 11/04/21 11/04/21 11/04/21 10:00 10:37 11:00 11:45 Temp 36.9 Pulse 87 86 Resp 19 B/P (MAP) 76/44 (55) 96/48 118/51 (73) Pulse Ox 95 O2 Delivery Nasal Cannula Nasal Cannula O2 Flow Rate 4.00 4.00 11/04/21 11/04/21 12:00 12:54 Pulse 84 Resp 21 B/P (MAP) 99/44 (62) Pulse Ox 94 O2 Delivery Nasal Cannula Nasal Cannula O2 Flow Rate 4.00 3.00 Capillary Refill : Less Than 3 Seconds General Appearance: no apparent distress Respiratory: lungs clear, normal breath sounds Cardiovascular: regular rate, rhythm, no murmur Peripheral Pulses: 2+ Dorsalis Pedis (R), 2+ Left Dors-Pedis (L) Gastrointestinal: normal bowel sounds; No distended; other (ttp) Extremities: pedal edema Neurologic/Psychiatric: other (seems mildly lethargic) Skin: warm/dry Assessment/Plan Assessment/Plan Admission Status: Inpatient Order (span 2 midnights) Reason for Inpatient Admission: Septic shock (1) Septic shock Status: Acute Assessment & Plan: Secondary to UTI versus pneumonia vs bowel source. Started on vancomycin and meropenem. Fluconazole added per Dr. Perez, yeast in urine. Overnight had low blood pressure, but not severe, managed with fluid boluses, however, this morning now BP less than 70s having just finished a bolus, will transfer to ICU add levophed. Lactic acid already normalized overnight, remains normal this am. (2) Jyrps-ys-xvvcrxs kidney injury Status: Resolved Assessment & Plan: Secondary to sepsis. Resolved with IVF overnight. (3) Hypoxia Status: Acute Assessment & Plan: Unclear etiology, CT chest appears similar to prior, not highly suspicious for new pneumonia. Continue supplemental oxygen as needed, wean as tolerated. Anticipate worsening given history of CHF and need for large amount of fluid for septic shock. (4) Hypokalemia Status: Acute Assessment & Plan: Replace and follow. (5) Lactic acid acidosis Status: Resolved Assessment & Plan: Secondary to sepsis versus ischemia- CT abd/pelvis without clear recurrent ischemic colitis, Surgery consulted. (6) Hyponatremia Status: Resolved Assessment & Plan: Suspect hypovolemic, resolved with IVF overnight. (7) UTI (urinary tract infection) Status: Acute Assessment & Plan: Possibly acute, difficult to tell given recent hospital stay. On Vanc and meropenem, culture pending. Qualifiers: Qualified Codes: N30.01 - Acute cystitis with hematuria (8) Pneumonia Status: Acute Assessment & Plan: Possible, but was just inpatient with similar CT findings, unclear if this is new acute pneumonia vs persistent changes. On abx due to septic shock. (9) Ileus Status: Acute Assessment & Plan: Post-op bowel resection for ischemic bowel earlier this month. Surgery consulted, appreciate recommendations. (10) Dehydration Status: Resolved (11) CHF (congestive heart failure) Status: Chronic Assessment & Plan: Consult Cardiology given need for large amounts of fluid, hypotension and history of CHF. Per Dr. Randall, had recent normal echo. Qualifiers: Qualified Codes: I50.32 - Chronic diastolic (congestive) heart failure (12) CAD (coronary artery disease) Status: Chronic Assessment & Plan: If no surgical needs, resume aspirin and plavix Qualifiers: Qualified Codes: I25.10 - Atherosclerotic heart disease of [place] coronary artery without angina pectoris (13) COPD (chronic obstructive pulmonary disease) Status: Chronic (14) Diabetes Status: Chronic Assessment & Plan: Sliding scale insulin. Qualifiers: Qualified Codes: E11.65 - Type 2 diabetes mellitus with hyperglycemia; Z79.4 - nursing home (current) use of insulin (15) Physical debility Status: Acute Assessment & Plan: Home health was planned after last d/c, not yet set up. PT/OT, further management pending hospital course. (16) DVT prophylaxis Status: Acute Assessment & Plan: Enoxaparin if okay with surgery SHEILA TOLENTINO MD Nov 04, 2021 09:32
[2021-11-04] MEDS ORDERED: NOREPINEPHRINE 8 MG/250 ML 250 ML IV ONE (09:59)
[2021-11-04] MEDS: NOREPINEPHRINE 8 MG/250 ML 250 ML IV SCH ×2 (10:37→20:15)
--- NOTE | 2021-11-04 10:44 | Diagnostic Imaging Report ---
INDICATION: Sepsis and ileus. TIME OF EXAM: 10:16 a.m. TECHNIQUE: Portable radiographs were obtained. FINDINGS: Overall quality is limited due to respiratory motion. No definite free air is identified. There is some moderate gaseous distention of small bowel loops in the central abdomen. There appears to be gas within the colon and findings are suggestive of ileus. There are midline skin alvarez noted. No unexpected radiopaque foreign objects are identified. IMPRESSION: Limited study. There are features most consistent with ileus. Dictated by: Dictated on workstation # [id number]
--- NOTE | 2021-11-04 11:08 | Physical Therapy Evaluation ---
PT Evaluation-General Medical Diagnosis Admission Date Nov 03, 2021 at 15:55 Medical Diagnosis: Severe sepsis Onset Date: Nov 03, 2021 Therapy Diagnosis Therapy Diagnosis: limited mobility Precautions Precautions/Isolations: Fall Prevention, Standard Precautions Weight Bear Status Right Lower Extremity: Right Weight Bearing/Tolerated Left Lower Extremity: Left Weight Bearing/Tolerated Referral Physician: Dr Zamora Reason for Referral: Evaluation/Treatment Medical History Pertinent Medical History: CAD, COPD, DM, Heart Failure, HTN, Smoking Current History Underwent abdominal surgery with ileostomy on 10/31/21. Returned to the hospital on 11/03 due to severe sepsis. Reviewed History: Yes Social History Home: Single Level Current Living Status: Children Entry Into Home: Stairs Without Railing PT Steps Into Home: 5 Prior Prior Level of Function SCALE: Activities may be completed with or without assistive devices. 9-Hyuuldgxda-hgalxae completes the activity by him/herself with no assistance from a helper. 5-Set-up or Clean-up Assistance-helper sets up or cleans up; patient completes activity. [place] assists only prior to or following the activity. 4-Supervision or Touching Assistance-helper provides verbal cues and/or touching/steadying and/or contact guard assistance as patient completes activity. Assistance may be provided throughout the activity or intermittently. 3-Partial/Moderate Assistance-helper does LESS THAN HALF the effort. [place] lifts, holds or supports trunk or limbs, but provides less than half the effort. 2-Substantial/Maximal Assistance-helper does MORE THAN HALF the effort. [place] lifts or holds trunk or limbs and provides more than half the effort. 4-Cqeplndnf-kvbgpf does ALL the effort. Patient does none of the effort to complete the activity. Or, the assistance of 2 or more helpers is required for the patient to complete the activity. If activity was not attempted, code reason: 7-Patient Refused. 9-Not Applicable-not attempted and the patient did not perform the activity before the current illness, exacerbation or injury. 10-Not Attempted due to Environmental Limitations-(lack of equipment, weather restraints, etc.). 88-Not Attempted due to Medical Conditions or Safety Concerns. Bed Mobility: 5 Transfers (B,C,W/C): 5 Gait: 5 Stairs: 5 Indoor Mobility (Ambulation): Needed Some Help Stairs: Needed Some Help Prior Devices Use: Walker Prior Device Use: walker PT Evaluation-Current Subjective Pt is very lethargic, struggling to stay awake during evaluation. Pain Numeric Pain Scale: 5-Moderate Pain Location: Lower Location Body Site: Back Pain Description: Ache Objective Patient Orientation: Person, Place Attachments: Oxygen, IV ROM/Strength ROM Upper Extremities Limited (B) shoulder ROM. Elbow, wrist, and hand ROM is WFL ROM Lower Extremities Hip, knee, and ankle ROM is tolerated during supine PROM. ROM is WFL. Strength Upper Extremities 3-/5 (B) UE gross strength Strength Lower Extremities 3-/5 (B) LE gross strength Sensory Hearing: Functional Sensation Right Upper Extremit: Intact Sensation Left Upper Extremity: Intact Sensation Right Lower Extremit: Intact Sensation Left Lower Extremity: Intact Transfers Roll Left to Right (QC): 1 Gait Does the Patient Walk?: No and Walking Goal IS indicated Mode of Locomotion: Walk Anticipated Mode of Locomotion: Walk Comments/Gait Description Pt was unable to stay awake long enough to attempt a transfer. May progress as her activity tolerance improves. Wheelchair Training Does the Pt Use a Wheelchair?: No Assessment/Needs Pt was very lethargic and provided limited AROM for evaluation. She reports a recent history of ambulating with the walker in the home. Rehab Potential: Poor PT [facility] Goals Tire Worker Goals PT [facility] Goals Time Frame: Nov 18, 2021 Roll Left & Right (QC): 4 Sit to Lying (QC): 4 Lying-Sitting on Side/Bed(QC): 4 Sit to Stand (QC): 4 Chair/Geo-og-Zgtkd Xfer(QC): 4 Toilet Transfer (QC): 4 Car Transfer (QC): 4 Does the Patient Walk: Yes Walk 10 feet (QC): 4 1 Step (curb) (QC): 4 4 Steps (QC): 4 PT Plan Problem List Problem List: Activity Tolerance, Functional Strength, Balance, Gait, Transfer, Bed Mobility Treatment/Plan Treatment Plan: Continue Plan of Care Treatment Plan: Bed Mobility, Functional Activity [place], Functional Strength, Gait, Safety, Therapeutic Exercise, Transfers Treatment Duration: Nov 18, 2021 Frequency: 6 times per week Estimated Hrs Per Day: .5 hour per day Patient and/or Family Agrees t: Yes Time/GCodes Time In: 0815 Time Out: 0840 Total Billed Treatment Time: 25 Total Billed Treatment 1, gomez 25 REINALDO KENDALL PT Nov 04, 2021 11:08
--- NOTE | 2021-11-04 12:22 | Consultation-Cardiology ---
HPI-Cardiology Cardiology Consultation: Date of Consultation 11/04/21 Time Seen by a Provider: 12:45 Date of Admission 11-04-21 Attending Physician Sheila Zamora MD Admitting Physician Jayjay Rendon MD Consulting Physician Uri Randall MD HPI: Chief Complaint: Hypotension Sepsis Ms. Quiroz isw a 71 yr old female admitted to ICU 9 from the ED. She reports she has been increasingly weak, fatigued and generally not feeling well since she was discharged home earlier this month. She reports she has not been eating or drinking much. She reports feeling hot at home. She does not report any c/o CP or palpitations. She has chronic SOB, which is unchanged. Review of Systems-Cardiology Review of Systems Constitutional: chills, fever, malaise Eyes: No vision change Ears/Nose/Throat: No recent hearing loss Respiratory: As described under HPI Cardiovascular: As described under HPI Gastrointestinal: As described under HPI Genitourinary: No hematuria Musculoskeletal: no symptoms reported Skin: other (multiple bruises and skin tears to arms and legs) Psychiatric/Neurological: No seizure, No focal weakness, No syncope Hematologic: No bleeding abnormalities XUA-Ruobsw-Embuva Hx Patient Social History Smoking Status: Current Everyday Smoker 2nd Hand Smoke Exposure: Yes Have you traveled recently?: No Alcohol Use?: No Pt feels they are or have been: No Tobacco type used: Cigarettes Immunizations Up To Date Tetanus Booster (TDap): Unknown Date of Influenza Vaccine: Sep 18, 2021 Past Medical History PMH As described under Assessment. Family Medical History Family Medical History: She reports her mother had CHF. Allergies and Home Medications Allergies Coded Allergies: Penicillins (Unverified Adverse Reaction, Unknown, 01/16/21) cephalexin (Unverified Adverse Reaction, Unknown, 01/16/21) ciprofloxacin (Unverified Adverse Reaction, Unknown, 01/16/21) erythromycin base (Unverified Adverse Reaction, Unknown, 01/16/21) Patient Home Medication List Alprazolam (Alprazolam) 0.5 Mg Tablet, 0.5 MG PO TID PRN for ANXIETY, (Reported) Entered as Reported by: FARHEEN PASTOR on 10/22/21 1021 Last Action: Reviewed Amitriptyline HCl (Amitriptyline HCl) 25 Mg Tablet, 25 MG PO HS, (Reported) Entered as Reported by: FARHEEN PASTOR on 10/22/21 1021 Last Action: Reviewed Aspirin (Aspirin EC) 81 Mg Tablet.dr, 81 MG PO DAILY, (Reported) Entered as Reported by: FARHEEN PASTOR on 10/22/21 102 Last Action: Reviewed Atorvastatin Calcium (Atorvastatin Calcium) 80 Mg Tablet, 80 MG PO HS, (Reported) Entered as Reported by: FARHEEN PASTOR on 10/22/21 102 Last Action: Reviewed Budesonide/Formoterol Fumarate (Symbicort 160-4.5 Mcg Inhaler) 10.2 Gm Hfa.aer.ad, 2 PUFF INH BID, (Reported) Entered as Reported by: FARHEEN PASTOR on 10/22/21 1301 Last Action: Reviewed Calcium Carbonate (Calcium) 600 Mg Tablet, 600 MG PO DAILY, (Reported) Entered as Reported by: FARHEEN PASTOR on 10/22/21 102 Last Action: Reviewed Clopidogrel Bisulfate (Clopidogrel) 75 Mg Tablet, 75 MG PO DAILY, (Reported) Entered as Reported by: FARHEEN PASTOR on 10/22/21 102 Last Action: Reviewed Dicyclomine HCl (Dicyclomine HCl) 10 Mg Capsule, 10 MG PO QIDACHS, (Reported) Entered as Reported by: FARHEEN PASTOR on 10/22/21 102 Last Action: Reviewed Empagliflozin (Jardiance) 10 Mg Tablet, 10 MG PO DAILY, (Reported) Entered as Reported by: FARHEEN PASTOR on 10/22/21 1021 Last Action: Reviewed Gabapentin (Gabapentin) 400 Mg Capsule, 400 MG PO TID, (Reported) Entered as Reported by: FARHEEN PASTOR on 10/22/21 102 Last Action: Reviewed Hydrocodone/Acetaminophen (Hydrocodone-Acetamin 10-325 mg) 1 Each Tablet, 1 EA PO Q4H PRN for PAIN-MODERATE (5-7), (Reported) Entered as Reported by: FARHEEN PASTOR on 11/04/21 1537 Last Action: Reviewed Insulin NPH Human Isophane (Novolin N) 100 Unit/1 Ml Vial, 10 UNIT SQ TID, (Reported) Entered as Reported by: FARHEEN PASTOR on 10/22/21 1254 Last Action: Reviewed Insulin Regular, Human (Novolin R) 100 Unit/1 Ml Vial, 10 UNIT SQ TID, (Reported) Entered as Reported by: FARHEEN PASTOR on 10/22/21 1254 Last Action: Reviewed Levothyroxine Sodium (Levothyroxine Sodium) 88 Mcg Tablet, 88 MCG PO DAILY, (Reported) Entered as Reported by: FARHEEN PASTOR on 10/22/21 102 Last Action: Reviewed Theresa-3/Dha/Epa/Fish Oil (Fish Oil 1,000 mg Softgel) 1 Each Capsule, 1 EACH PO DAILY, (Reported) Entered as Reported by: FARHEEN PASTOR on 10/22/21 102 Last Action: Reviewed Pantoprazole Sodium (Pantoprazole Sodium) 40 Mg Tablet.dr, 40 MG PO DAILY, (Reported) Entered as Reported by: FARHEEN PASTOR on 10/22/21 102 Last Action: Reviewed Prednisone (Prednisone) 5 Mg Tablet, 5 MG PO DAILY, (Reported) Entered as Reported by: FARHEEN PASTOR on 10/22/21 1254 Last Action: Reviewed Ropinirole HCl (Ropinirole HCl) 2 Mg Tablet, 4 MG PO HS, (Reported) Entered as Reported by: FARHEEN PASTOR on 10/22/21 102 Last Action: Reviewed Tizanidine HCl (Tizanidine HCl) 2 Mg Tablet, 2 MG PO TID PRN for MUSCLE SPASMS, (Reported) Entered as Reported by: FARHEEN PASTOR on 10/22/21 102 Last Action: Reviewed Torsemide (Torsemide) 20 Mg Tablet, 20 MG PO DAILY, (Reported) Entered as Reported by: FARHEEN PASTOR on 10/22/21 102 Last Action: Reviewed Discontinued Medications Hydrocodone/Acetaminophen (Hydrocodone-Acetamin 5-325 mg) 1 Each Tablet, 1 EA PO Q6H PRN for PAIN-MODERATE (5-7), (Reported) Discontinued Reason: Duplicate Order Entered as Reported by: FARHEEN PSATOR on 10/22/21 102 Last Action: Discontinued Physical Exam-Cardiology Physical Exam Vital Signs/I&O 11/04/21 11/04/21 11/04/21 11/04/21 21:00 21:00 21:35 22:00 Pulse 91 88 Resp 19 20 B/P (MAP) 105/50 (68) 100/55 (70) Pulse Ox 96 95 97 O2 Delivery Nasal Cannula Nasal Cannula Nasal Cannula Nasal Cannula O2 Flow Rate 3.00 4.00 2.00 3.00 FiO2 97 11/04/21 11/05/21 11/05/21 11/05/21 23:00 00:00 00:00 01:00 Temp 36.4 Pulse 92 99 103 Resp 26 B/P (MAP) 92/49 (63) 105/60 (75) Pulse Ox 90 91 O2 Delivery Nasal Cannula Nasal Cannula O2 Flow Rate 3.00 3.00 11/05/21 11/05/21 11/05/21 11/05/21 01:00 02:00 03:00 03:00 Pulse 103 102 92 Resp 26 26 24 B/P (MAP) 113/63 (80) 102/77 (85) 144/60 (88) Pulse Ox 93 94 95 94 O2 Delivery Nasal Cannula Nasal Cannula Nasal Cannula Nasal Cannula O2 Flow Rate 3.00 3.00 3.00 2.00 11/05/21 11/05/21 11/05/21 11/05/21 03:34 04:00 05:00 06:00 Pulse 92 91 92 Resp 24 24 20 B/P (MAP) 88/49 130/60 (83) 151/61 (91) 111/49 (69) Pulse Ox 96 95 94 O2 Delivery Nasal Cannula Nasal Cannula Nasal Cannula O2 Flow Rate 3.00 3.00 3.00 11/05/21 11/05/21 11/05/21 11/05/21 07:00 07:00 08:00 08:00 Temp 36.3 Pulse 90 87 90 B/P (MAP) 119/63 (81) 98/50 (66) Pulse Ox 97 92 O2 Delivery Nasal Cannula Nasal Cannula O2 Flow Rate 3.00 3.00 11/05/21 00:00 Intake Total 3915 ml Output Total 740 ml Balance 3175 ml Capillary Refill : Less Than 3 Seconds Constitutional: AAO x 3, well-developed, well-nourished HEENT: PERRL, hearing is well preserved, oral hygience is good Neck: No carotid bruit; carotid pulses are 2 + bilaterally Respiratory: No accessory muscle use, No respiratory distress; chest expansion is symmetric, chest is bilaterally symmetric, rhonchi (scattered), other (good air entry) Cardiovascular: regular rate-rhythm; No JVD; S1 and S2 Gastrointestinal: audible bowel sounds (hyperactive BS RUQ) Extremities: no lower extremity edema bilateral Neurologic/Psychiatric: grossly intact (moves all extremities) Skin: No rash on exposed areas, No ulcerations on exposed areas Data Review Labs Laboratory Tests 11/04/21 11:31: Glucometer 169H 11/04/21 17:41: Glucometer 176H 11/04/21 18:07: Sodium Level 135, Potassium Level 3.7, Chloride Level 104, Carbon Dioxide Level 20L, Anion Gap 11, Blood Urea Nitrogen 12, Creatinine 1.80H, Estimat Glomerular Filtration Rate 28, BUN/Creatinine Ratio 7, Glucose Level 171H, Calcium Level 6.5L 11/04/21 18:16: Lactic Acid Level 1.69 11/05/21 00:41: Glucometer 201H 11/05/21 03:40: White Blood Count 22.8H, Red Blood Count 2.69L, Hemoglobin 7.7L, Hematocrit 23L, Mean Corpuscular Volume 86, Mean Corpuscular Hemoglobin 29, Mean Corpuscular Hemoglobin Concent 34, Red Cell Distribution Width 18.0H, Platelet Count 237, Mean Platelet Volume 10.3, Immature Granulocyte % (Auto) 1, Neutrophils (%) (Auto) 91H, Lymphocytes (%) (Auto) 3L, Monocytes (%) (Auto) 4, Eosinophils (%) (Auto) 1, Basophils (%) (Auto) 0, Neutrophils # (Auto) 20.7H, Lymphocytes # (Auto) 0.7L, Monocytes # (Auto) 0.9, Eosinophils # (Auto) 0.2, Basophils # (Auto) 0.1, Immature Granulocyte # (Auto) 0.3H, Sodium Level 132L, Potassium Level 4.0, Chloride Level 103, Carbon Dioxide Level 17L, Anion Gap 12, Blood Urea Nitrogen 13, Creatinine 1.77H, Estimat Glomerular Filtration Rate 28, BUN/Creatinine Ratio 7, Glucose Level 211H, Calcium Level 6.3L, Corrected Calcium 8.0L, Phosphorus Level 3.7, Magnesium Level 1.4L, Total Bilirubin 0.7, Aspartate Amino Transf (AST/SGOT) 39H, Alanine Aminotransferase (ALT/SGPT) 13, Alkaline Phosphatase 109, Total Protein 5.2L, Albumin 1.9L Microbiology 11/03/21 Urine Culture - Final, Complete Yeast species Klebsiella pneumoniae 11/03/21 Blood Culture - Preliminary, Resulted No growth Radiology NAME: SOUMYA QUIROZ [facility] REC#: [id number] PT STATUS: REG ER : 1950 PHYSICIAN: CANDY LE MD ADMIT DATE: 11/03/21/ER FS Signed Date of Exam:11/03/21 CT CHEST/ABDOMEN/PELVIS W PROCEDURE: CT chest, abdomen, and pelvis with contrast. TECHNIQUE: Multiple contiguous axial images were obtained through the chest, abdomen, and pelvis after the administration of intravenous contrast. Auto Exposure Controls were utilized during the CT exam to meet ALARA standards for radiation dose reduction. INDICATION: Hypertension, abdominal pain and recent colon resection, pulmonary infiltrates COMPARISON: 10/21/2021. CT CHEST: The heart is enlarged with coronary artery disease. There is no pericardial effusion. There is atherosclerotic change throughout the thoracic aorta. No obvious large central pulmonary embolism is identified. There is subsegmental atelectasis in the left base. The pleural effusions have resolved. The infiltrates bilaterally persist and are unchanged. There is no pneumothorax. Osseous structures are stable. IMPRESSION: 1. Resolved small bilateral pleural effusions 2. Unchanged bilateral pulmonary infiltrates 3. Cardiac enlargement with coronary artery disease and not mentioned above advanced mitral and aortic valvular heart disease. CT abdomen pelvis. There is a mild to moderate distention of the stomach and several bowel loops including the colon likely diffuse ileus. There is no free air or free fluid. Postoperative changes are seen involving the proximal colon. There is no postoperative abscess. There is advanced atherosclerotic disease of the abdominal aorta and visceral branch vessels. No obvious solid organ or bowel ischemia is identified. The gallbladder is surgically absent. Solid organs are stable. Urinary bladder is decompressed with a Parker catheter. Osseous structures are unremarkable. IMPRESSION: 1. Suspect diffuse ileus. The patient may benefit from NG tube placement 2. No abscess, free air or free fluid. 3. postoperative changes involving the proximal colon. 4. Advanced atherosclerotic disease without obvious solid organ or bowel ischemia. Dictated by: Dictated on workstation # [id number] Dict: 11/03/21 1314 Trans: 11/03/[address] [facility] [id number] Interpreted by: MAYITO RACHEL Electronically signed by: MAYITO RACEHL 11/03/21 1403 NAME: SOUMYA QUIROZ [facility] REC#: [id number] PT STATUS: REG ER : 1950 PHYSICIAN: CANDY LE MD ADMIT DATE: 11/03/21/ER FS Signed Date of Exam:11/03/21 CT HEAD WO PROCEDURE: CT head without contrast. TECHNIQUE: Multiple contiguous axial images were obtained through the brain without the use of intravenous contrast. Auto Exposure Controls were utilized during the CT exam to meet ALARA standards for radiation dose reduction. INDICATION: Decreased responsiveness COMPARISON: 10/21/2021 CT HEAD: CT images of the head were obtained. FINDINGS: Ventricles and sulci are within normal limits for size. There is no intracranial hemorrhage identified. There is no abnormal mass effect or shift of midline structures. Chronic appearing sphenoid sinus mucosal disease is again noted. IMPRESSION: Unremarkable CT of the head. Dictated by: Dictated on workstation # [id number] Dict: 11/03/21 1304 Trans: 11/03/21 1401 [facility] [id number] Interpreted by: CHERRI URBANO MD Electronically signed by: CHERRI URBANO MD 11/03/21 1401 NAME: SOUMYA QUIROZ [facility] REC#: [id number] PT STATUS: ADM IN : 1950 PHYSICIAN: MONICA PEREZ MD ADMIT DATE: 11/03/21/[facility] Draft Date of Exam:11/04/21 ABDOMEN, FLAT & UPRIGHT/DECUB INDICATION: Sepsis and ileus. TIME OF EXAM: 10:16 a.m. TECHNIQUE: Portable radiographs were obtained. FINDINGS: Overall quality is limited due to respiratory motion. No definite free air is identified. There is some moderate gaseous distention of small bowel loops in the central abdomen. There appears to be gas within the colon and findings are suggestive of ileus. There are midline skin alvarez noted. No unexpected radiopaque foreign objects are identified. IMPRESSION: Limited study. There are features most consistent with ileus. Dictated on workstation # [id number] Dict: 11/04/21 1034 Trans: 11/04/21 1043 [id number] Interpreted by: SVETLANA RASHID MD Electronically signed by: ECG Impression ECG Initial ECG Rhythm: Normal Sinus A/P-Cardiology Assessment/Admission Diagnosis Sepsis - likely secondary to UTI - management per medical/eICU services Ileus - seen on CT of 11-04-21 Elevated pro-BNP - likely secondary to hypotension, acute renal failure and sepsis GI - s/p exploratory laparotomy, right hemicolectomy, ileal resection(100cm) with ileocolonic anastamosis on 10/22/21 CAD - reports follows with cardiology at [facility] in [place] and has had cardiac stent placed in June 22, [address] Larry Lord - reported to be a Cary 3.25mm x 15 mm stent - location unknown Acute on chronic exacerbation of COPD Echo on 10/22/21: LVEF 55-60%, dilated RA DM 2 HTN - uncontrolled HLD H/o frequent falls H/o frequent UTI's Discussion and Recomendations Sepsis likely secondary to UTI - management per medical/eICU services Hypotension requiring pressor support secondary to sepsis - hold all antihypertensives Elevated pro-BNP likely secondary to hypotension, sepsis and acute renal failure Ileus - management per Dr. Perez - currently NPO She has h/o recent coronary stent placement on 06-22-21 at [facility] in [place] - request records - advise anti-platelet tx be given d/t recent stent placement if ok with surgical services Request records from [facility] Monitor lab closely Further recs will be based on her hospital course We would like to thank medical services for this consult BERLIN GUTHRIE Nov 04, 2021 12:22
[2021-11-04] MEDS ORDERED: CLOPIDOGREL 75 MG (PLAVIX) TABLET PO NR (13:30)
[2021-11-04] MEDS: VANCOMYCIN 1500 MG/NS 500 ML IVPB IV SCH ×2 (14:24)
[2021-11-04] MEDS ORDERED: HYDR-3820 PO (15:37)
--- NOTE | 2021-11-04 15:50 | Tele-ICU Consult ---
History of Present Illness History of Present Illness Date Seen by Provider: Nov 04, 2021 Time Seen by Provider: 15:49 Date of Admission Allergies and Home Medications Allergies Coded Allergies: Penicillins (Unverified Adverse Reaction, Unknown, 01/16/21) cephalexin (Unverified Adverse Reaction, Unknown, 01/16/21) ciprofloxacin (Unverified Adverse Reaction, Unknown, 01/16/21) erythromycin base (Unverified Adverse Reaction, Unknown, 01/16/21) Home Medications Alprazolam 0.5 Mg Tablet, 0.5 MG PO TID PRN for ANXIETY, (Reported) Amitriptyline HCl 25 Mg Tablet, 25 MG PO HS, (Reported) Aspirin 81 Mg Tablet.dr, 81 MG PO DAILY, (Reported) Atorvastatin Calcium 80 Mg Tablet, 80 MG PO HS, (Reported) Budesonide/Formoterol Fumarate 10.2 Gm Hfa.aer.ad, 2 PUFF INH BID, (Reported) Calcium Carbonate 600 Mg Tablet, 600 MG PO DAILY, (Reported) Clopidogrel Bisulfate 75 Mg Tablet, 75 MG PO DAILY, (Reported) Dicyclomine HCl 10 Mg Capsule, 10 MG PO QIDACHS, (Reported) Empagliflozin 10 Mg Tablet, 10 MG PO DAILY, (Reported) Gabapentin 400 Mg Capsule, 400 MG PO TID, (Reported) Hydrocodone/Acetaminophen 1 Each Tablet, 1 EA PO Q4H PRN for PAIN-MODERATE (5- 7), (Reported) Insulin NPH Human Isophane 100 Unit/1 Ml Vial, 10 UNIT SQ TID, (Reported) Insulin Regular, Human 100 Unit/1 Ml Vial, 10 UNIT SQ TID, (Reported) Levothyroxine Sodium 88 Mcg Tablet, 88 MCG PO DAILY, (Reported) Moro-3/Dha/Epa/Fish Oil 1 Each Capsule, 1 EACH PO DAILY, (Reported) Pantoprazole Sodium 40 Mg Tablet.dr, 40 MG PO DAILY, (Reported) Prednisone 5 Mg Tablet, 5 MG PO DAILY, (Reported) Ropinirole HCl 2 Mg Tablet, 4 MG PO HS, (Reported) TAKES 2 (2MG) TABS Tizanidine HCl 2 Mg Tablet, 2 MG PO TID PRN for MUSCLE SPASMS, (Reported) Torsemide 20 Mg Tablet, 20 MG PO DAILY, (Reported) Past Medical/Social/Family Hx Patient Social History Tobacco Use?: Yes Tobacco type used: Cigarettes Smoking Status: Current Everyday Smoker Use of E-Cig and/or Vaping dev: No Substance use?: No Alcohol Use?: No Pt stated abuse/neglect: No Immunizations Up To Date Influenza Vaccine Up-to-Date: Yes; Up-to-Date First/Initial COVID19 Vaccinat: UTD Second COVID19 Vaccination Lno: UTD Tetanus Booster (TDap): Unknown Current Status Advance Directives: No Primary Language: Puerto Rican Preferred Spoken Language: Puerto Rican Is interpretation needed?: No Past Medical History PMHx: Congestive heart failure Coronary artery disease with stenting Ischemic bowel requiring resection COPD Diabetes SurgHx: Bowel resection for ischemic colitis Coronary artery stenting Review of Systems Constitutional: see HPI Sepsis Event Evaluation Height, Weight, BMI Height: '" Weight: lbs. oz. kg; 39.08 BMI Method: Exam Exam Patient acknowledged, consented, and participated in this virtual visit which was conducted using real time audio/video Vital Signs Date Time Temp Pulse Resp B/P (MAP) Pulse Ox O2 Delivery O2 Flow Rate FiO2 11/04/21 15:42 96 Nasal Cannula 2.00 11/04/21 13:00 91 11/04/21 12:54 Nasal Cannula 3.00 11/04/21 12:00 84 21 99/44 (62) 94 Nasal Cannula 4.00 11/04/21 11:45 36.9 11/04/21 11:00 86 19 118/51 (73) 95 Nasal Cannula 4.00 11/04/21 10:37 87 96/48 11/04/21 10:00 76/44 (55) Nasal Cannula 4.00 11/04/21 08:29 Nasal Cannula 4.00 95 11/04/21 07:52 36.9 87 22 96/48 (64) 94 Nasal Cannula 4.00 11/04/21 07:00 92 11/04/21 07:00 89 11/04/21 06:30 92 Nasal Cannula 4.00 11/04/21 04:06 36.7 88 20 101/44 (63) 93 Nasal Cannula 3.00 11/04/21 03:15 93 Nasal Cannula 3.00 11/04/21 00:42 89 11/03/21 23:13 36.3 89 18 107/54 (71) 98 Nasal Cannula 3.00 11/03/21 21:30 98 Nasal Cannula 3.00 11/03/21 19:53 97 Nasal Cannula 4.00 11/03/21 19:50 Nasal Cannula 5.00 11/03/21 19:43 36.1 96 19 112/44 (66) 98 Nasal Cannula 5.00 11/03/21 19:27 36.1 89 95 11/03/21 19:24 Nasal Cannula 5.00 11/03/21 19:00 95 11/03/21 18:52 36.0 95 75/44 (54) 97 11/03/21 17:05 36.1 82 27 148/42 95 Nasal Cannula 5.00 5.00 I & O 11/04/21 07:00 Intake Total 0 ml Output Total 625 ml Balance -625 ml Height & Weight Height: '" Weight: lbs. oz. kg; 39.08 BMI Method: General Appearance: No Apparent Distress, Chronically ill, Obese, Other (decreased responsiveness. arouses to voice) HEENT: No Moist Mucous Membranes (dry mucous membranes) Respiratory: Chest Non Tender, No Accessory Muscle Use, No Respiratory Distress, Decreased Breath Sounds Cardiovascular: Regular Rate, Rhythm, Normal Peripheral Pulses Capillary Refill: Less Than 3 Seconds Peripheral Pulses: 2+ Femoral (R), 2+ Femoral (L), 2+ Dorsalis Pedis (R), 2+ Left Dors-Pedis (L), 2+ Radial Pulses (R), 2+ Radial Pulses (L) Gastrointestinal: normal bowel sounds; No distended; other (ttp) Extremity: Pedal Edema (1+) Neurologic/Psychiatric: No Alert (awakens to voice, otherwise somnolent); Oriented x3, research chemist II-XII Norm as Tested Skin: Cool, Mottled Results Lab Laboratory Tests 11/03/21 12:08 11/04/21 03:40 Assessment/Plan Assessment/Plan (Tele-ICU Physician , consultation) Available chart/ vitals / labs / Images reviewed H&P is from ER notes Patient's information available about PMH, Shx, Fhx allergy reviewed in EMR. ROS as per chart and RN report Now in ICU Video assessment done using teleICU camera, rest of exam as per RN Discussed with RN. Consultants: megan FARIA Hospital course: 11/04 - septic shock , levo A/P Septic shock - fluid resuscitation - pressors top wean -chronically on steroids prednisone 5, but on high doses IV during recent admission - will add hydrocortisone stress doses UTI -on vanco . merrem 11/03 - yeast in urine.- Fluconazole 11/03 --culture pending. Hypoxia ( oxygen dependent for severe COPD) - monitor for VO ( CT chest 11/03 - bilateral pulmonary infiltrates, unchanged -Echo on 10/22/21: LVEF 55-60%, dilated RA RUEL/ckd - CT abd - no hydro - cr 1.7 - catheter in place , monitor UO TME - CT 11/03- no acute fingdings Ileus -s/p right hemicolectomy , resection of the distal small bowel , ileocolonic anastomosisn for ischemic bowel 10/21/2021 - Surgery consulted CAD- -Echo on 10/22/21: LVEF 55-60%, dilated RA - cards consulted Lactic acidosis - RESOLVED ,CT abd/pelvis without clear recurrent ischemic colitis, Surgery consulted. Anemia - stable , follow Hypokalemia - follow. Lines : PICC 11/04 (Central Line Necessity Reviewed) Parker: + OG: Nutrition: Analgesia: Anxiety/ delirium VTE Prophylaxis: marily 40 Stress Ulcer Prophylaxis: ppi Plans in collaboration with bedside consultants and IM MDs. Discussed with RN to reach out if any questions or concerns A total of 35 minutes of critical care time was devoted to this patient today, required to treat and/or prevent further deterioration of critical care condition ( as above VALENTIN LAUREANO MD Nov 04, 2021 15:50
--- NOTE | 2021-11-04 16:13 | Progress Note ---
Subjective Date Seen by a Provider: Nov 04, 2021 Time Seen by a Provider: 15:00 Subjective/Events-last exam doing ok. passing flatus. no BM. no significant abd pain. no nausea/vomiting. Focused Exam Lactate Level 11/03/21 14:12: Lactic Acid Level 2.52*H 11/03/21 16:05: Lactic Acid Level 1.75 11/04/21 07:55: Lactic Acid Level 1.80 Time of Focused Exam: 14:00 Objective Exam Vital Signs Date Time Temp Pulse Resp B/P (MAP) Pulse Ox O2 Delivery O2 Flow Rate FiO2 11/04/21 15:42 96 Nasal Cannula 2.00 11/04/21 13:00 91 11/04/21 12:54 Nasal Cannula 3.00 11/04/21 12:00 84 21 99/44 (62) 94 Nasal Cannula 4.00 11/04/21 11:45 36.9 11/04/21 11:00 86 19 118/51 (73) 95 Nasal Cannula 4.00 11/04/21 10:37 87 96/48 11/04/21 10:00 76/44 (55) Nasal Cannula 4.00 11/04/21 08:29 Nasal Cannula 4.00 95 11/04/21 07:52 36.9 87 22 96/48 (64) 94 Nasal Cannula 4.00 11/04/21 07:00 92 11/04/21 07:00 89 11/04/21 06:30 92 Nasal Cannula 4.00 11/04/21 04:06 36.7 88 20 101/44 (63) 93 Nasal Cannula 3.00 11/04/21 03:15 93 Nasal Cannula 3.00 11/04/21 00:42 89 11/03/21 23:13 36.3 89 18 107/54 (71) 98 Nasal Cannula 3.00 11/03/21 21:30 98 Nasal Cannula 3.00 11/03/21 19:53 97 Nasal Cannula 4.00 11/03/21 19:50 Nasal Cannula 5.00 11/03/21 19:43 36.1 96 19 112/44 (66) 98 Nasal Cannula 5.00 11/03/21 19:27 36.1 89 95 11/03/21 19:24 Nasal Cannula 5.00 11/03/21 19:00 95 11/03/21 18:52 36.0 95 75/44 (54) 97 11/03/21 17:05 36.1 82 27 148/42 95 Nasal Cannula 5.00 5.00 I & O 11/04/21 06:59 Intake Total 0 ml Output Total 625 ml Balance -625 ml Capillary Refill : Less Than 3 Seconds General Appearance: No Apparent Distress HEENT: PERRL/EOMI Neck: Full Range of Motion Respiratory: Rhonci, Wheezing Cardiovascular: Regular Rate, Rhythm Gastrointestinal: normal bowel sounds, soft, distended Extremity: Normal Capillary Refill Neurologic/Psychiatric: Alert, Oriented x3 Skin: Normal Color Lymphatic: No Adenopathy Results Lab Laboratory Tests 11/04/21 00:09: Glucometer 192H 11/04/21 03:40: White Blood Count 26.7H, Red Blood Count 2.98L, Hemoglobin 8.3L, Hematocrit 26L, Mean Corpuscular Volume 87, Mean Corpuscular Hemoglobin 28, Mean Corpuscular Hemoglobin Concent 32, Red Cell Distribution Width 17.4H, Platelet Count 247, Mean Platelet Volume 11.2, Immature Granulocyte % (Auto) 1, Neutrophils (%) (Auto) 86H, Lymphocytes (%) (Auto) 5L, Monocytes (%) (Auto) 8, Eosinophils (%) (Auto) 0, Basophils (%) (Auto) 0, Neutrophils # (Auto) 23.0H, Lymphocytes # (Auto) 1.4, Monocytes # (Auto) 2.0H, Eosinophils # (Auto) 0.1, Basophils # (Auto) 0.1, Immature Granulocyte # (Auto) 0.2H, Sodium Level 135, Potassium Level 3.4L, Chloride Level 102, Carbon Dioxide Level 20L, Anion Gap 13, Blood Urea Nitrogen 9, Creatinine 1.70H, Estimat Glomerular Filtration Rate 30, BUN/Creatinine Ratio 5, Glucose Level 169H, Calcium Level 7.1L, Corrected Calcium 8.6, Total Bilirubin 0.7, Aspartate Amino Transf (AST/SGOT) 30, Alanine Aminotransferase (ALT/SGPT) 13, Alkaline Phosphatase 114, Total Protein 5.6L, Albumin 2.1L 11/04/21 05:53: Glucometer 167H 11/04/21 07:55: Lactic Acid Level 1.80 11/04/21 11:31: Glucometer 169H Microbiology 11/03/21 Urine Culture - Final, Complete Yeast species Klebsiella pneumoniae 11/03/21 Blood Culture - Preliminary, Resulted No growth Assessment/Plan Assessment/Plan Assess & Plan/Chief Complaint ileus s/p ileocolonic resection for ischemic bowel, resp failure, cardiac failure, UTI. await more bowel fxn, clears for now. start gentle laxative. MONICA FERNANDEZ MD Nov 04, 2021 16:12
--- NOTE | 2021-11-04 17:49 | Consultation-Cardiology ---
HPI-Cardiology Cardiology Consultation: Date of Consultation 11/04/21 Time Seen by a Provider: 17:05 Date of Admission Attending Physician Sheila Zamora MD Admitting Physician Jayjay Rendon MD Consulting Physician MIRTA AL MD, MA, FACP, FACC, FSCAI, CCDS Physician requesting Card consult: Dr Zamora HPI: Chief Complaint: Reason for Consult: Hypotension HPI Ms. Quiroz isw a 71 yr old female admitted to ICU 9 from the ED. She reports she has been increasingly weak, fatigued and generally not feeling well since she was discharged home earlier this month. She reports she has not been eating or drinking much. She reports feeling hot at home. She does not report any c/o CP or palpitations. She has chronic SOB, which is unchanged. Review of Systems-Cardiology Review of Systems Constitutional: chills, fever, malaise Eyes: No vision change Ears/Nose/Throat: No recent hearing loss Respiratory: As described under HPI Cardiovascular: As described under HPI Gastrointestinal: As described under HPI Genitourinary: No hematuria Musculoskeletal: no symptoms reported Skin: other (multiple bruises and skin tears to arms and legs) Psychiatric/Neurological: No seizure, No focal weakness, No syncope Hematologic: No bleeding abnormalities [id number] Hx Patient Social History Smoking Status: Current Everyday Smoker 2nd Hand Smoke Exposure: Yes Have you traveled recently?: No Alcohol Use?: No Pt feels they are or have been: No Tobacco type used: Cigarettes Immunizations Up To Date Tetanus Booster (TDap): Unknown Date of Influenza Vaccine: Sep 18, 2021 Past Medical History PMH As described under Assessment. Family Medical History Family Medical History: She reports her mother had CHF. Allergies and Home Medications Allergies Coded Allergies: Penicillins (Unverified Adverse Reaction, Unknown, 01/16/21) cephalexin (Unverified Adverse Reaction, Unknown, 01/16/21) ciprofloxacin (Unverified Adverse Reaction, Unknown, 01/16/21) erythromycin base (Unverified Adverse Reaction, Unknown, 01/16/21) Patient Home Medication List Home Medication List Reviewed: Yes Alprazolam (Alprazolam) 0.5 Mg Tablet, 0.5 MG PO TID PRN for ANXIETY, (Reported) Entered as Reported by: FARHEEN PASTOR on 10/22/21 1021 Last Action: Reviewed Amitriptyline HCl (Amitriptyline HCl) 25 Mg Tablet, 25 MG PO HS, (Reported) Entered as Reported by: FARHEEN PASTOR on 10/22/21 102 Last Action: Reviewed Aspirin (Aspirin EC) 81 Mg Tablet.dr, 81 MG PO DAILY, (Reported) Entered as Reported by: FARHEEN PASTOR on 10/22/21 1021 Last Action: Reviewed Atorvastatin Calcium (Atorvastatin Calcium) 80 Mg Tablet, 80 MG PO HS, (Reported) Entered as Reported by: FARHEEN PASTOR on 10/22/21 1021 Last Action: Reviewed Budesonide/Formoterol Fumarate (Symbicort 160-4.5 Mcg Inhaler) 10.2 Gm Hfa.aer.ad, 2 PUFF INH BID, (Reported) Entered as Reported by: FARHEEN PASTOR on 10/22/21 1301 Last Action: Reviewed Calcium Carbonate (Calcium) 600 Mg Tablet, 600 MG PO DAILY, (Reported) Entered as Reported by: FARHEEN PASTRO on 10/22/21 102 Last Action: Reviewed Clopidogrel Bisulfate (Clopidogrel) 75 Mg Tablet, 75 MG PO DAILY, (Reported) Entered as Reported by: FARHEEN PASTOR on 10/22/21 102 Last Action: Reviewed Dicyclomine HCl (Dicyclomine HCl) 10 Mg Capsule, 10 MG PO QIDACHS, (Reported) Entered as Reported by: FARHEEN PASTOR on 10/22/21 102 Last Action: Reviewed Empagliflozin (Jardiance) 10 Mg Tablet, 10 MG PO DAILY, (Reported) Entered as Reported by: FARHEEN PASTOR on 10/22/21 102 Last Action: Reviewed Gabapentin (Gabapentin) 400 Mg Capsule, 400 MG PO TID, (Reported) Entered as Reported by: FARHEEN PASTOR on 10/22/21 1021 Last Action: Reviewed Hydrocodone/Acetaminophen (Hydrocodone-Acetamin 10-325 mg) 1 Each Tablet, 1 EA PO Q4H PRN for PAIN-MODERATE (5-7), (Reported) Entered as Reported by: FARHEEN PASTOR on 11/04/21 1537 Last Action: Reviewed Insulin NPH Human Isophane (Novolin N) 100 Unit/1 Ml Vial, 10 UNIT SQ TID, (Reported) Entered as Reported by: FARHEEN PASTOR on 10/22/21 1254 Last Action: Reviewed Insulin Regular, Human (Novolin R) 100 Unit/1 Ml Vial, 10 UNIT SQ TID, (Reported) Entered as Reported by: FARHEEN PASTOR on 10/22/211253 Last Action: Reviewed Levothyroxine Sodium (Levothyroxine Sodium) 88 Mcg Tablet, 88 MCG PO DAILY, (Reported) Entered as Reported by: FARHEEN PASTOR on 10/22/21 102 Last Action: Reviewed [place]-3/Dha/Epa/Fish Oil (Fish Oil 1,000 mg Softgel) 1 Each Capsule, 1 EACH PO DAILY, (Reported) Entered as Reported by: FARHEEN PASTOR on 10/22/21 102 Last Action: Reviewed Pantoprazole Sodium (Pantoprazole Sodium) 40 Mg Tablet.dr, 40 MG PO DAILY, (Reported) Entered as Reported by: FARHEEN PASTOR on 10/22/21 102 Last Action: Reviewed Prednisone (Prednisone) 5 Mg Tablet, 5 MG PO DAILY, (Reported) Entered as Reported by: FARHEEN PASTOR on 10/22/211253 Last Action: Reviewed Ropinirole HCl (Ropinirole HCl) 2 Mg Tablet, 4 MG PO HS, (Reported) Entered as Reported by: FARHEEN PASTOR on 10/22/21 102 Last Action: Reviewed Tizanidine HCl (Tizanidine HCl) 2 Mg Tablet, 2 MG PO TID PRN for MUSCLE SPASMS, (Reported) Entered as Reported by: FARHEEN PASTOR on 10/22/21 102 Last Action: Reviewed Torsemide (Torsemide) 20 Mg Tablet, 20 MG PO DAILY, (Reported) Entered as Reported by: FARHEEN PASTOR on 10/22/21 102 Last Action: Reviewed Discontinued Medications Hydrocodone/Acetaminophen (Hydrocodone-Acetamin 5-325 mg) 1 Each Tablet, 1 EA PO Q6H PRN for PAIN-MODERATE (5-7), (Reported) Discontinued Reason: Duplicate Order Entered as Reported by: FARHEEN PASTOR on 10/22/21 102 Last Action: Discontinued Physical Exam-Cardiology Physical Exam Vital Signs/I&O 11/04/21 11/04/21 11/04/21 11/04/21 06:30 07:00 07:00 07:52 Temp 36.9 Pulse 89 92 87 Resp 22 B/P (MAP) 96/48 (64) Pulse Ox 92 94 O2 Delivery Nasal Cannula Nasal Cannula O2 Flow Rate 4.00 4.00 11/04/21 11/04/21 11/04/21 11/04/21 08:29 10:00 10:37 11:00 Pulse 87 86 Resp 19 B/P (MAP) 76/44 (55) 96/48 118/51 (73) Pulse Ox 95 O2 Delivery Nasal Cannula Nasal Cannula Nasal Cannula O2 Flow Rate 4.00 4.00 4.00 FiO2 95 11/04/21 11/04/21 11/04/21 11/04/21 11:45 12:00 12:54 13:00 Temp 36.9 Pulse 84 91 Resp 21 24 B/P (MAP) 99/44 (62) Pulse Ox 94 94 O2 Delivery Nasal Cannula Nasal Cannula Nasal Cannula O2 Flow Rate 4.00 3.00 3.00 11/04/21 11/04/21 11/04/21 11/04/21 13:00 14:00 15:00 15:42 Pulse 91 93 87 Resp 16 B/P (MAP) Pulse Ox 92 100 96 O2 Delivery Nasal Cannula Nasal Cannula Nasal Cannula O2 Flow Rate 3.00 3.00 2.00 11/04/21 16:00 Pulse 91 Resp 23 B/P (MAP) Pulse Ox 96 O2 Delivery Nasal Cannula O2 Flow Rate 3.00 11/04/21 00:00 Intake Total 0 ml Output Total 475 ml Balance -475 ml Capillary Refill : Less Than 3 Seconds Constitutional: AAO x 3, well-developed, well-nourished HEENT: PERRL, hearing is well preserved, oral hygience is good Neck: No carotid bruit; carotid pulses are 2 + bilaterally Respiratory: No accessory muscle use, No respiratory distress; chest expansion is symmetric, chest is bilaterally symmetric, rhonchi (scattered), other (good air entry) Cardiovascular: regular rate-rhythm; No JVD; S1 and S2 Gastrointestinal: audible bowel sounds (hyperactive BS RUQ) Extremities: no lower extremity edema bilateral Neurologic/Psychiatric: grossly intact (moves all extremities) Skin: No rash on exposed areas, No ulcerations on exposed areas Data Review Labs Laboratory Tests 11/04/21 00:09: Glucometer 192H 11/04/21 03:40: White Blood Count 26.7H, Red Blood Count 2.98L, Hemoglobin 8.3L, Hematocrit 26L, Mean Corpuscular Volume 87, Mean Corpuscular Hemoglobin 28, Mean Corpuscular Hemoglobin Concent 32, Red Cell Distribution Width 17.4H, Platelet Count 247, Mean Platelet Volume 11.2, Immature Granulocyte % (Auto) 1, Neutrophils (%) (Auto) 86H, Lymphocytes (%) (Auto) 5L, Monocytes (%) (Auto) 8, Eosinophils (%) (Auto) 0, Basophils (%) (Auto) 0, Neutrophils # (Auto) 23.0H, Lymphocytes # (Auto) 1.4, Monocytes # (Auto) 2.0H, Eosinophils # (Auto) 0.1, Basophils # (Auto) 0.1, Immature Granulocyte # (Auto) 0.2H, Sodium Level 135, Potassium Level 3.4L, Chloride Level 102, Carbon Dioxide Level 20L, Anion Gap 13, Blood Urea Nitrogen 9, Creatinine 1.70H, Estimat Glomerular Filtration Rate 30, BUN/Creatinine Ratio 5, Glucose Level 169H, Calcium Level 7.1L, Corrected Calcium 8.6, Total Bilirubin 0.7, Aspartate Amino Transf (AST/SGOT) 30, Alanine Aminotransferase (ALT/SGPT) 13, Alkaline Phosphatase 114, Total Protein 5.6L, Albumin 2.1L 11/04/21 05:53: Glucometer 167H 11/04/21 07:55: Lactic Acid Level 1.80 11/04/21 11:31: Glucometer 169H 11/04/21 17:41: Glucometer 176H Microbiology 11/03/21 Urine Culture - Final, Complete Yeast species Klebsiella pneumoniae 11/03/21 Blood Culture - Preliminary, Resulted No growth Laboratory Tests 11/03/21 12:08 11/04/21 03:40 A/P-Cardiology Assessment/Admission Diagnosis Sepsis - likely secondary to UTI - management per medical/eICU services Ileus - seen on CT of 11-04-21 Elevated pro-BNP - likely secondary to hypotension, acute renal failure and sepsis GI - s/p exploratory laparotomy, right hemicolectomy, ileal resection(100cm) with ileocolonic anastamosis on 10/22/21 CAD - reports follows with cardiology at [facility] in [place] and has had cardiac stent placed in June 22, [address] Larry Safley - reported to be a [place] 3.25mm x 15 mm stent - location unknown Acute on chronic exacerbation of COPD Echo on 10/22/21: LVEF 55-60%, dilated RA DM 2 HTN - uncontrolled HLD H/o frequent falls H/o frequent UTI's Discussion and Recomendations Sepsis likely secondary to UTI - management per medical/eICU services Hypotension requiring pressor support secondary to sepsis - hold all antihypertensives Elevated pro-BNP likely secondary to hypotension, sepsis and acute renal failure Ileus - management per Dr. Perez - currently NPO She has h/o recent coronary stent placement on 06-22-21 at [facility] in [place] - request records - advise anti-platelet tx be given d/t recent stent placement if ok with surgical services Request records from [facility] Monitor lab closely Further recs will be based on her hospital course We would like to thank Medical services for this consult I discussed the case with Dr Zamora earlier today MIRTA AL MD FACP FAC CCDS Nov 04, 2021 17:49
[2021-11-04 18:38] LABS: POTASSIUM 3.7 MMOL/L (3.6-5.0)
[2021-11-04 18:39] LABS: CALCIUM 6.5 MG/DL (8.5-10.1)
[2021-11-04 18:43] LABS: CREATININE SERUM 1.8 MG/DL (0.60-1.30)
[2021-11-04] MEDS ORDERED: HYDROCORTISONE 100 MG/2 ML (Solu-CORTEF) VIAL ONE (19:55)
[2021-11-04] MEDS: polyethylene glycoL POWDER 17 GM (MIRALAX) PACK PO SCH (20:14)
[2021-11-04] MEDS: HYDROCORTISONE 100 MG/2 ML (Solu-CORTEF) VIAL IV SCH (20:16)
[2021-11-04] MEDS ORDERED: RT-ALBUTEROL/IPRATROPIUM 3 ML (DUONEB) VIAL INH SCH (21:00)
[2021-11-05] VITALS (24 sets, daily range): BP systolic 98–151; BP diastolic 46–97
[2021-11-05] MEDS: inSUlin ASPART (NovoLOG) 1 UNIT/0.01 ML (CHARGE PER UNIT) SC SCH ×5 (00:56→23:24)
[2021-11-05] MEDS: MEROPENEM 500 MG in NS (IVPB) 100 ML IV SCH ×5 (00:57→23:24)
[2021-11-05] MEDS: RT-ALBUTEROL/IPRATROPIUM 3 ML (DUONEB) VIAL INH SCH ×4 (02:59→21:30)
[2021-11-05] MEDS: NOREPINEPHRINE 8 MG/250 ML 250 ML IV SCH ×2 (03:34→12:03)
[2021-11-05 03:47] LABS: BASOPHILS # (AUTO) 0.1 10^3/uL (0.0-0.1); BASOPHILS % (AUTO) 0 % (0-10); EOSINOPHILS # (AUTO) 0.2 10^3/uL (0.0-0.3); EOSINOPHILS % (AUTO) 1 % (0-10); HEMATOCRIT 23 % (35-52); HEMOGLOBIN 7.7 g/dL (11.5-16.0); LYMPHOCYTES # (AUTO) 0.7 10^3/uL (1.0-4.0); LYMPHOCYTES % (AUTO) 3 % (12-44); MEAN CORPUSCULAR HEMOGLOBIN 29 pg (25-34); MEAN CORPUSCULAR HGB CONC 34 g/dL (32-36); MEAN CORPUSCULAR VOLUME 86 fL (80-99); MEAN PLATELET VOLUME 10.3 fL (9.0-12.2); MONOCYTES # (AUTO) 0.9 10^3/uL (0.0-1.0); MONOCYTES % (AUTO) 4 % (0-12); NEUTROPHILS # (AUTO) 20.7 10^3/uL (1.8-7.8); NEUTROPHILS % (AUTO) 91 % (42-75); PLATELET COUNT 237 10^3/uL (130-400); WHITE BLOOD COUNT 22.8 10^3/uL (4.3-11.0)
[2021-11-05 03:55] LABS: ALBUMIN 1.9 GM/DL (3.2-4.5)
[2021-11-05 03:57] LABS: CALCIUM 6.3 MG/DL (8.5-10.1)
[2021-11-05 03:58] LABS: TOTAL PROTEIN 5.2 GM/DL (6.4-8.2)
[2021-11-05 04:00] LABS: BILIRUBIN,TOTAL 0.7 MG/DL (0.1-1.0)
[2021-11-05 04:02] LABS: CREATININE SERUM 1.77 MG/DL (0.60-1.30)
[2021-11-05 04:58] LABS: PHOSPHORUS 3.7 MG/DL (2.3-4.7)
[2021-11-05 04:59] LABS: MAGNESIUM 1.4 MG/DL (1.6-2.4)
[2021-11-05] MEDS: POTASSIUM CL 10MEQ/50ML IVPB 50 ML IV SCH (05:31)
[2021-11-05] MEDS: MAGNESIUM 1 GM/100 ML IVPB 100 ML IV SCH ×3 (05:31→06:37)
[2021-11-05] MEDS: KCL 20 MEQ TAB (K-DUR) PO SCH (05:31)
[2021-11-05] MEDS: HYDROCORTISONE 100 MG/2 ML (Solu-CORTEF) VIAL IV SCH ×3 (05:37→21:39)
[2021-11-05] MEDS: NS IV 1000 ML 1,000 ML IV SCH ×2 (06:37→20:13)
[2021-11-05] MEDS: PANTOPRAZOLE 40 MG (PROTONIX) VIAL IV SCH (07:36)
[2021-11-05] MEDS: FLUCONAZOLE 200 MG/100 ML 50 ML, EMPTY IV BAG (PVC) 1 EA IV SCH ×2 (07:36)
[2021-11-05] MEDS: polyethylene glycoL POWDER 17 GM (MIRALAX) PACK PO SCH ×2 (07:37→21:22)
[2021-11-05] MEDS: CLOPIDOGREL 75 MG (PLAVIX) TABLET PO SCH (07:37)
[2021-11-05] MEDS: ENOXAPARIN 40 MG/0.4 ML (LOVENOX) SYR SC SCH (07:37)
--- NOTE | 2021-11-05 08:39 | Progress Note ---
Subjective Subjective/Events-last exam Pt is lethargic, but states she is feeling better today than yesterday, denies concerns. Focused Exam Lactate Level 11/03/21 16:05: Lactic Acid Level 1.75 11/04/21 07:55: Lactic Acid Level 1.80 11/04/21 18:16: Lactic Acid Level 1.69 Time of Focused Exam: 14:00 Objective Exam Last Set of Vital Signs Vital Signs Date Time Temp Pulse Resp B/P (MAP) Pulse Ox O2 Delivery O2 Flow Rate FiO2 11/05/21 08:00 36.3 11/05/21 08:00 90 98/50 (66) 92 Nasal Cannula 3.00 11/05/21 06:00 20 11/04/21 21:00 97 Capillary Refill : Less Than 3 Seconds I&O Intake and Output 11/05/21 00:00 Intake Total 5065 ml Output Total 890 ml Balance 4175 ml Intake Oral 1550 ml IV Total 3515 ml Output Urine Total 890 ml General: Other (lethargic, but wakes up and answers questions appropriately) Lungs: Clear to Auscultation, Normal Air Movement Heart: Regular Rate, No Murmurs Abdomen: Normal Bowel Sounds, Soft, Other (mild ttp directly over incision) Extremities: Other (1+ pitting edema lower legs) Psych/Mental Status: Mood NL Results/Procedures Lab Laboratory Tests 11/04/21 11:31: Glucometer 169H 11/04/21 17:41: Glucometer 176H 11/04/21 18:07: Sodium Level 135, Potassium Level 3.7, Chloride Level 104, Carbon Dioxide Level 20L, Anion Gap 11, Blood Urea Nitrogen 12, Creatinine 1.80H, Estimat Glomerular Filtration Rate 28, BUN/Creatinine Ratio 7, Glucose Level 171H, Calcium Level 6.5L 11/04/21 18:16: Lactic Acid Level 1.69 11/05/21 00:41: Glucometer 201H 11/05/21 03:40: White Blood Count 22.8H, Red Blood Count 2.69L, Hemoglobin 7.7L, Hematocrit 23L, Mean Corpuscular Volume 86, Mean Corpuscular Hemoglobin 29, Mean Corpuscular Hemoglobin Concent 34, Red Cell Distribution Width 18.0H, Platelet Count 237, Mean Platelet Volume 10.3, Immature Granulocyte % (Auto) 1, Neutrophils (%) (Auto) 91H, Lymphocytes (%) (Auto) 3L, Monocytes (%) (Auto) 4, Eosinophils (%) (Auto) 1, Basophils (%) (Auto) 0, Neutrophils # (Auto) 20.7H, Lymphocytes # (Auto) 0.7L, Monocytes # (Auto) 0.9, Eosinophils # (Auto) 0.2, Basophils # (Auto) 0.1, Immature Granulocyte # (Auto) 0.3H, Sodium Level 132L, Potassium Level 4.0, Chloride Level 103, Carbon Dioxide Level 17L, Anion Gap 12, Blood Urea Nitrogen 13, Creatinine 1.77H, Estimat Glomerular Filtration Rate 28, BUN/Creatinine Ratio 7, Glucose Level 211H, Calcium Level 6.3L, Corrected Calcium 8.0L, Phosphorus Level 3.7, Magnesium Level 1.4L, Total Bilirubin 0.7, Aspartate Amino Transf (AST/SGOT) 39H, Alanine Aminotransferase (ALT/SGPT) 13, Alkaline Phosphatase 109, Total Protein 5.2L, Albumin 1.9L Microbiology 11/03/21 Urine Culture - Final, Complete Yeast species Klebsiella pneumoniae 11/03/21 Blood Culture - Preliminary, Resulted No growth Radiology CT abd/pelvis 11/03/21 IMPRESSION: 1. Suspect diffuse ileus. The patient may benefit from NG tube placement 2. No abscess, free air or free fluid. 3. postoperative changes involving the proximal colon. 4. Advanced atherosclerotic disease without obvious solid organ or bowel ischemia. Assessment/Plan Assessment/Plan (1) Septic shock Status: Acute Assessment & Plan: Secondary to UTI versus pneumonia vs bowel source. Started on vancomycin and meropenem. Fluconazole added per Dr. Perez, yeast in urine. Overnight had low blood pressure, but not severe, managed with fluid boluses, however, this morning now BP less than 70s having just finished a bolus, will transfer to ICU add levophed. Lactic acid already normalized overnight, remains normal this am. 11/05- solucortef added per ICU physician, continues to requiring levophed. Continued on meropnem and vancomycin and fluconazole. (2) [id number] kidney injury Status: Acute Assessment & Plan: Secondary to sepsis. Incorrectly documented yesterday that it was resolved, is actually stable at this time but not resolving as of yet. (3) Hypoxia Status: Acute Assessment & Plan: Unclear etiology, CT chest appears similar to prior, not highly suspicious for new pneumonia. Continue supplemental oxygen as needed, wean as tolerated. Anticipate worsening given history of CHF and need for large amount of fluid for septic shock. (4) Hypokalemia Status: Acute Assessment & Plan: Replace and follow. (5) Lactic acid acidosis Status: Resolved Assessment & Plan: Secondary to sepsis versus ischemia- CT abd/pelvis without clear recurrent ischemic colitis, Surgery consulted. (6) Hyponatremia Status: Acute Assessment & Plan: Suspect hypovolemic, resolved with IVF overnight after admit, slightly low again today, continue fluid replacement. (7) UTI (urinary tract infection) Status: Acute Assessment & Plan: Possibly acute, difficult to tell given recent hospital stay. On Vanc and meropenem, culture pending. Qualifiers: Qualified Codes: N30.01 - Acute cystitis with hematuria (8) Pneumonia Status: Acute Assessment & Plan: Possible, but was just inpatient with similar CT findings, unclear if this is new acute pneumonia vs persistent changes. On abx due to septic shock. (9) Ileus Status: Acute Assessment & Plan: Post-op bowel resection for ischemic bowel earlier this month. Surgery consulted, appreciate recommendations. (10) Dehydration Status: Resolved (11) CHF (congestive heart failure) Status: Chronic Assessment & Plan: Consult Cardiology given need for large amounts of fluid, hypotension and history of CHF. Per Dr. Randall, had recent normal echo. Qualifiers: Qualified Codes: I50.32 - Chronic diastolic (congestive) heart failure (12) CAD (coronary artery disease) Status: Chronic Assessment & Plan: If no surgical needs, resume aspirin and plavix Qualifiers: Qualified Codes: I25.10 - Atherosclerotic heart disease of [place] coronary artery without angina pectoris (13) COPD (chronic obstructive pulmonary disease) Status: Chronic (14) Diabetes Status: Chronic Assessment & Plan: Sliding scale insulin. Qualifiers: Qualified Codes: E11.65 - Type 2 diabetes mellitus with hyperglycemia; Z79.4 - group home (current) use of insulin (15) Physical debility Status: Acute Assessment & Plan: Home health was planned after last d/c, not yet set up. PT/OT, further management pending hospital course. (16) DVT prophylaxis Status: Acute Assessment & Plan: Enoxaparin if okay with surgery YASMIN TOLENTINO MD Nov 05, 2021 08:39
--- NOTE | 2021-11-05 08:41 | Progress Note - Cardiology ---
Cardiology SOAP Progress Note Subjective: Lethargic this morning No c/o CP or SOB Objective: I&O/Vital Signs 11/08/21 11/08/21 11/08/21 11/08/21 00:00 02:12 04:00 07:48 Temp 36.0 36.8 35.1 Pulse 71 79 89 Resp 18 17 20 B/P (MAP) 123/75 (91) 125/77 (93) 143/67 (92) Pulse Ox 94 91 96 97 O2 Delivery Nasal Cannula Nasal Cannula Nasal Cannula Nasal Cannula O2 Flow Rate 2.00 2.00 2.00 11/08/21 09:00 O2 Delivery Room Air 11/08/21 00:00 Intake Total 1045 ml Output Total 500 ml Balance 545 ml Constitutional: AAO x 3, well-developed, well-nourished Respiratory: No accessory muscle use, No respiratory distress; chest expansion is symmetric, chest is bilaterally symmetric, rhonchi (scattered), other (good air entry) Cardiovascular: regular rate-rhythm; No JVD; S1 and S2 Gastrointestional: other (post op abdomen) Extremities: no lower extremity edema bilateral Neurologic/Psychiatric: grossly intact (moves all extremities) Skin: No rash on exposed areas, No ulcerations on exposed areas Results/Procedures: Labs Laboratory Tests 11/07/21 11:10: Glucometer 231H 11/07/21 20:52: Glucometer 83 11/08/21 05:00: White Blood Count 11.4H, Red Blood Count 2.88L, Hemoglobin 7.8L, Hematocrit 25L, Mean Corpuscular Volume 87, Mean Corpuscular Hemoglobin 27, Mean Corpuscular Hemoglobin Concent 31L, Red Cell Distribution Width 18.1H, Platelet Count 239, Mean Platelet Volume 10.0, Immature Granulocyte % (Auto) 3, Neutrophils (%) (Auto) 86H, Lymphocytes (%) (Auto) 7L, Monocytes (%) (Auto) 5, Eosinophils (%) (Auto) 0, Basophils (%) (Auto) 0, Neutrophils # (Auto) 9.7H, Lymphocytes # (Auto) 0.8L, Monocytes # (Auto) 0.5, Eosinophils # (Auto) 0.0, Basophils # (A uto) 0.0, Immature Granulocyte # (Auto) 0.3H, Sodium Level 133L, Potassium Level 3.5L, Chloride Level 104, Carbon Dioxide Level 18L, Anion Gap 11, Blood Urea Nitrogen 15, Creatinine 1.08, Estimat Glomerular Filtration Rate 50, BUN/Creatinine Ratio 14, Glucose Level 104, Calcium Level 6.9L, Corrected Calcium 8.2L, Phosphorus Level 2.9, Magnesium Level 2.0, Total Bilirubin 0.5, Aspartate Amino Transf (AST/SGOT) 27, Alanine Aminotransferase (ALT/SGPT) 11, Alkaline Phosphatase 121, Total Protein 6.1L, Albumin 2.4L 11/08/21 10:50: Glucometer 96 Microbiology 11/05/21 MRSA Screen - Final, Complete MRSA not isolated 11/03/21 Urine Culture - Final, Complete Yeast species Klebsiella pneumoniae 11/03/21 Blood Culture - Preliminary, Resulted No growth A/P: Assessment: Sepsis - likely secondary to UTI - management per medical/eICU services Ileus - seen on CT of 11-04-21 Elevated pro-BNP - likely secondary to hypotension, acute renal failure and sepsis GI - s/p exploratory laparotomy, right hemicolectomy, ileal resection(100cm) with ileocolonic anastamosis on 10/22/21 CAD - reports follows with cardiology at [facility] and has had cardiac stent placed in June 22, [address] Larry Lord - reported to be a [place] 3.25mm x 15 mm stent - location unknown Anemia of undetermined etiology - management per medical services Acute on chronic exacerbation of COPD Echo on 10/22/21: LVEF 55-60%, dilated RA DM 2 HTN - uncontrolled HLD H/o frequent falls H/o frequent UTI's Plan: Sepsis likely secondary to UTI - management per medical/eICU services Hypotension requiring pressor support secondary to sepsis - hold all antihypertensives Elevated pro-BNP likely secondary to hypotension, sepsis and acute renal failure Ileus - management per Dr. Perez Anemia of undetermined etiology - management per medical/surgical services She has h/o recent coronary stent placement on 06-22-21 at [facility] - request records - advise anti-platelet tx be given d/t recent stent placement if ok with surgical services Request records from [facility] - have not received yet Monitor lab closely BERLIN GUTHRIE Nov 05, 2021 08:41
[2021-11-05] MEDS ORDERED: PHARMACY TO DOSE SQ SCH (09:00)
--- NOTE | 2021-11-05 09:08 | Physical Therapy Progress Note ---
Therapy Progress Note Patient was transferred to ICU due to BP issues. Will need new orders to continue tx. ELVIS PEREZ PT Nov 05, 2021 09:08
--- NOTE | 2021-11-05 10:09 | Occupational Therapy Eval ---
OT Evaluation-General/PLF Medical Diagnosis Admission Date Nov 03, 2021 at 15:55 Medical Diagnosis: Severe sepsis Onset Date: Nov 03, 2021 Therapy Diagnosis Therapy Diagnosis: decreased ADL status, weakness Precautions Precautions/Isolations: Fall Prevention, Standard Precautions Referral Physician: Dr Zamora Referral Reason: Evaluation/Treatment Medical History Pertinent Medical History: CAD, COPD, DM, Heart Failure, HTN, Smoking Current History Abdominal surgery 10/31/21, returned 11/03 due to severe sepsis Social History Home: Single Level Current Living Status: Children Entry Into Home: Stairs Without Railing Steps Into Home: 5 ADL-Prior Level of Function SCALE: Activities may be completed with or without assistive devices. 2-Prarxqyfoy-kctuwsx completes the activity by him/herself with no assistance from a helper. 5-Set-up or Clean-up Assistance-helper sets up or cleans up; patient completes activity. [place] assists only prior to or following the activity. 4-Supervision or Touching Assistance-helper provides verbal cues and/or touching/steadying and/or contact guard assistance as patient completes activity. Assistance may be provided throughout the activity or intermittently. 3-Partial/Moderate Assistance-helper does LESS THAN HALF the effort. [place] lifts, holds or supports trunk or limbs, but provides less than half the effort. 2-Substantial/Maximal Assistance-helper does MORE THAN HALF the effort. [place] lifts or holds trunk or limbs and provides more than half the effort. 0-Ujptptmks-fenwue does ALL the effort. Patient does none of the effort to complete the activity. Or, the assistance of 2 or more helpers is required for the patient to complete the activity. If activity was not attempted, code reason: 7-Patient Refused. 9-Not Applicable-not attempted and the patient did not perform the activity before the current illness, exacerbation or injury. 10-Not Attempted due to Environmental Limitations-(lack of equipment, weather restraints, etc.). 88-Not Attempted due to Medical Conditions or Safety Concerns. ADL PLOF Comments Pt reports she was able to take care of herself at home, her stayed close by providing SBA. She doesn't wear socks at home, only wears slip on shoes. She uses a walker for functional mobility with SBA Self Care: Needed Some Help Functional Cognition: Independent DME/Equipment: Bath Chair, Shower OT Current Status Subjective Pt laying in bed, agreeable to OT Tx. Pt states she is tired and would like to rest post tx. Mental Status/Objective Patient Orientation: Person Attachments: Parker Catheter, IV, Oxygen, Telemetry Current Upper Extremity ROM AAROM shoulder flexion to approx 90 degrees during ADL tx. Upper Extremity Strength grossly 3-/5 ADL-Treatment Eating (QC): 3 (Mod A. ) Oral Hygiene (QC): 3 (per clinical judgment.) Upper Body Dressing (QC): 2 (per clinical judgment.) Lower Body Dressing (QC): 1 (per clincial judgment.) On/Off Footwear (QC): 1 (per clinical judgment) Toileting Hygiene (QC): 1 (catheter) Other Treatments Pt laying in bed, agreeable to OT Tx. Pt unable to state where she was at, OT reoriented pt to being in the hospital. Pt agreeable to transfer supine to sit EOB, pt unable to bring legs towards EOB, requiring assistance. Pt able to provide some assistance with her trunk to sit upright, max A overall with transfer. Pt sat EOB ~20 seconds, requiring min A with sitting balance. OT provided pt with clear liquids from tray table, hand over hand guidance provided to bring to her mouth and tip some of the liquids into her mouth, pt able to swallow. Pt requests to return supine, assist provided with BLEs, and some trunk assistance, max A overall. HOB elevated, pt handed the remainder of the cup of liquid, pt able to bring to her mouth, successfully drinking 1/2 with SBA. After liquid got too low, pt required assistance to tip container enough to get into her mouth. Pt asked for water, OT cued pt to locate on tray table. Pt able to reach out with her RUE, grab cup and bring to mouth, taking drink through straw with SBA. Post tx, pt in bed, call light in reach and all needs met. Bed alarm on. Education OT Patient Education: Correct positioning, Energy conservation, Exercise program, Modified ADL techniques, Progress toward Goal/Update tx plan, Purpose of tx/functional activities, Rehab process Teaching Recipient: Patient Teaching Methods: Discussion Response to Teaching: Verbalize Understanding OT Skilled Nursing Goals Skilled Nursing Goals Time Frame: Nov 26, 2021 Eating (QC): 5 Oral Hygiene (QC): 5 Toileting Hygiene (QC): 3 Shower/Bathe Self (QC): 3 Upper Body Dressing (QC): 4 Lower Body Dressing (QC): 3 On/Off Footwear (QC): 3 Additional Goals: 1-Demonstrate ADL Tasks, 2-Verbalize Understanding, 3- ImproveStrength/Virgen 1=Demonstrate adherence to instructed precautions during ADL tasks. 2=Patient will verbalize/demonstrate understanding of assistive d evices/modifications for ADL. 3=Patient will improve strength/tolerance for activity to enable patient to perform ADL's. OT Education/Plan Problem List/Assessment Assessment: Decreased Activ Tolerance, Decreased UE Strength, Impaired Funct Balance, Impaired I ADL's, Impaired Self-Care Skills Discharge Recommendations Plan/Recommendations: Continue POC Treatment Plan/Plan of Care Patient would benefit from OT for education, treatment and training to promote independence in ADL's, mobility, safety and/or upper extremity function for A DL's. Plan of Care: ADL Retraining, Functional Mobility, UE Funct Exercise/Act Treatment Duration: Nov 26, 2021 Frequency: 3 times per week (3-5 times per week) Estimated Hrs Per Day: .25 hour per day Rehab Potential: Fair Time/GCodes Start Time: 09:40 Stop Time: 09:58 Total Time Billed (hr/min): 18 Billed Treatment Time 1, PATT SANCHEZ OT Nov 05, 2021 10:09
--- NOTE | 2021-11-05 10:16 | Physical Therapy Progress Note ---
Therapy Progress Note Patient refused physical therapy this morning. She refused to try to sit on the side of the bed or do LE exercises in bed. Patient states "Nope, not today". Explained the benefits of therapy and she continues to refuse. Will check back this afternoon if able. ELVIS PEREZ PT Nov 05, 2021 10:16
--- NOTE | 2021-11-05 10:54 | Tele-ICU Progress Note ---
Subjective Date Seen by a Provider: Nov 05, 2021 Time Seen by a Provider: 10:54 Sepsis Event Evaluation Height, Weight, BMI Height: '" Weight: lbs. oz. kg; 39.08 BMI Method: Focused Exam Lactate Level 11/03/21 16:05: Lactic Acid Level 1.75 11/04/21 07:55: Lactic Acid Level 1.80 11/04/21 18:16: Lactic Acid Level 1.69 Time of Focused Exam: 14:00 Exam Exam Patient acknowledged, consented, and participated in this virtual visit which was conducted using real time audio/video Vital Signs Date Time Temp Pulse Resp B/P (MAP) Pulse Ox O2 Delivery O2 Flow Rate FiO2 11/05/21 10:00 98 113/46 (68) 96 Nasal Cannula 3.00 11/05/21 09:00 90 114/50 (71) 93 Nasal Cannula 3.00 11/05/21 08:54 Nasal Cannula 2.00 94 11/05/21 08:42 96 Nasal Cannula 3.00 11/05/21 08:00 36.3 11/05/21 08:00 90 98/50 (66) 92 Nasal Cannula 3.00 11/05/21 07:00 87 11/05/21 07:00 90 119/63 (81) 97 Nasal Cannula 3.00 11/05/21 06:00 92 20 111/49 (69) 94 Nasal Cannula 3.00 11/05/21 05:00 91 24 151/61 (91) 95 Nasal Cannula 3.00 11/05/21 04:00 92 24 130/60 (83) 96 Nasal Cannula 3.00 11/05/21 03:34 88/49 11/05/21 03:00 94 Nasal Cannula 2.00 11/05/21 03:00 92 24 144/60 (88) 95 Nasal Cannula 3.00 11/05/21 02:00 102 26 102/77 (85) 94 Nasal Cannula 3.00 11/05/21 01:00 103 26 113/63 (80) 93 Nasal Cannula 3.00 11/05/21 01:00 103 11/05/21 00:00 36.4 11/05/21 00:00 99 26 105/60 (75) 91 Nasal Cannula 3.00 11/04/21 23:00 92 26 92/49 (63) 90 Nasal Cannula 3.00 11/04/21 22:00 88 20 100/55 (70) 97 Nasal Cannula 3.00 11/04/21 21:35 95 Nasal Cannula 2.00 11/04/21 21:00 Nasal Cannula 4.00 97 11/04/21 21:00 91 19 105/50 (68) 96 Nasal Cannula 3.00 11/04/21 20:15 99/43 11/04/21 20:00 92 19 133/54 (80) 91 Nasal Cannula 3.00 11/04/21 20:00 36.8 11/04/21 19:00 93 20 97/59 (72) 93 Nasal Cannula 3.00 11/04/21 19:00 92 11/04/21 18:00 89 16 93 Nasal Cannula 3.00 11/04/21 17:00 89 18 83/38 (53) 92 Nasal Cannula 3.00 11/04/21 16:00 91 23 96 Nasal Cannula 3.00 11/04/21 15:42 96 Nasal Cannula 2.00 11/04/21 15:00 87 16 100 Nasal Cannula 3.00 11/04/21 14:00 93 21 92 Nasal Cannula 3.00 11/04/21 13:00 91 11/04/21 13:00 91 24 94 Nasal Cannula 3.00 11/04/21 12:54 Nasal Cannula 3.00 11/04/21 12:00 84 21 99/44 (62) 94 Nasal Cannula 4.00 11/04/21 11:45 36.9 11/04/21 11:00 86 19 118/51 (73) 95 Nasal Cannula 4.00 I & O 11/05/21 07:00 Intake Total 6465 ml Output Total 1590 ml Balance 4875 ml Height & Weight Height: '" Weight: lbs. oz. kg; 39.08 BMI Method: General Appearance: No Apparent Distress HEENT: PERRL/EOMI Neck: Full Range of Motion Respiratory: Rhonci, Wheezing Cardiovascular: Regular Rate, Rhythm Capillary Refill: Less Than 3 Seconds Peripheral Pulses: 2+ Femoral (R), 2+ Femoral (L), 2+ Dorsalis Pedis (R), 2+ Left Dors-Pedis (L), 2+ Radial Pulses (R), 2+ Radial Pulses (L) Gastrointestinal: normal bowel sounds, soft, distended Extremity: Normal Capillary Refill Neurologic/Psychiatric: Alert, Oriented x3 Skin: Normal Color Lymphatic: No Adenopathy Results Lab Laboratory Tests 11/03/21 12:08 11/04/21 03:40 11/04/21 18:07 11/05/21 03:40 Assessment/Plan Assessment/Plan (Tele-ICU Physician , Progress Note ) Available chart/ vitals / labs / Images reviewed Video assessment done using teleICU camera, rest of exam as per RN Discussed with RN , EXAM PER RN Events overnight : Afebrile FiO2 - 3l I/O = 5L positive Drips: Pressors: LEVO hemodynamically stable Consultants: Hospital course: Consultants: megan FARIA Hospital course: 11/04 - septic shock , levo A/P Septic shock - fluid resuscitation -+ 5L last 24 h - pressors top wean -chronically on steroids prednisone 5, but on high doses IV during recent admission - will add hydrocortisone stress doses - TO CONT TODAY UTI - KLEBSIELLA -on vanco- ? to stop . merrem 11/03 - yeast in urine.- Fluconazole 11/03 --culture pending. Hypoxia ( oxygen dependent for severe COPD) - monitor for VO ( CT chest 11/03 - bilateral pulmonary infiltrates, unchanged -Echo on 10/22/21: LVEF 55-60%, dilated RA RUEL/ckd - CT abd - no hydro - cr 1.7 - catheter in place , monitor UO TME - [facility] 11/03- no acute fingdings - IMPROVED Ileus -s/p right hemicolectomy , resection of the distal small bowel , ileocolonic anastomosisn for ischemic bowel 10/21/2021 - Surgery consulted CAD- -Echo on 10/22/21: LVEF 55-60%, dilated RA - cards consulted Lactic acidosis - RESOLVED ,CT abd/pelvis without clear recurrent ischemic colitis, Surgery consulted. Anemia - stable , follow - dropped - probably delutional with + 5L balance Lines : PICC 11/04 (Central Line Necessity Reviewed) Parker: + OG: Nutrition: Analgesia: Anxiety/ delirium VTE Prophylaxis: marily 40 Stress Ulcer Prophylaxis: ppi Plans in collaboration with bedside consultants and IM MDs. Discussed with RN to reach out if any questions or concerns A total of 35 minutes of critical care time was devoted to this patient today, required to treat and/or prevent further deterioration of critical care condition ( as above VALENTIN LAUREANO MD Nov 05, 2021 10:54
--- NOTE | 2021-11-05 12:04 | Progress Note ---
Subjective Date Seen by a Provider: Nov 05, 2021 Time Seen by a Provider: 11:30 Subjective/Events-last exam doing better. having copious loose stools. no abd pain. no fever/chills. Focused Exam Lactate Level 11/03/21 16:05: Lactic Acid Level 1.75 11/04/21 07:55: Lactic Acid Level 1.80 11/04/21 18:16: Lactic Acid Level 1.69 Time of Focused Exam: 14:00 Objective Exam Vital Signs Date Time Temp Pulse Resp B/P (MAP) Pulse Ox O2 Delivery O2 Flow Rate FiO2 11/05/21 11:00 88 17 111/66 (81) 96 Nasal Cannula 3.00 11/05/21 10:00 98 113/46 (68) 96 Nasal Cannula 3.00 11/05/21 09:00 90 114/50 (71) 93 Nasal Cannula 3.00 11/05/21 08:54 Nasal Cannula 2.00 94 11/05/21 08:42 96 Nasal Cannula 3.00 11/05/21 08:00 36.3 11/05/21 08:00 90 98/50 (66) 92 Nasal Cannula 3.00 11/05/21 07:00 87 11/05/21 07:00 90 119/63 (81) 97 Nasal Cannula 3.00 11/05/21 06:00 92 20 111/49 (69) 94 Nasal Cannula 3.00 11/05/21 05:00 91 24 151/61 (91) 95 Nasal Cannula 3.00 11/05/21 04:00 92 24 130/60 (83) 96 Nasal Cannula 3.00 11/05/21 03:34 88/49 11/05/21 03:00 94 Nasal Cannula 2.00 11/05/21 03:00 92 24 144/60 (88) 95 Nasal Cannula 3.00 11/05/21 02:00 102 26 102/77 (85) 94 Nasal Cannula 3.00 11/05/21 01:00 103 26 113/63 (80) 93 Nasal Cannula 3.00 11/05/21 01:00 103 11/05/21 00:00 36.4 11/05/21 00:00 99 26 105/60 (75) 91 Nasal Cannula 3.00 11/04/21 23:00 92 26 92/49 (63) 90 Nasal Cannula 3.00 11/04/21 22:00 88 20 100/55 (70) 97 Nasal Cannula 3.00 11/04/21 21:35 95 Nasal Cannula 2.00 11/04/21 21:00 Nasal Cannula 4.00 97 11/04/21 21:00 91 19 105/50 (68) 96 Nasal Cannula 3.00 11/04/21 20:15 99/43 11/04/21 20:00 92 19 133/54 (80) 91 Nasal Cannula 3.00 11/04/21 20:00 36.8 11/04/21 19:00 93 20 97/59 (72) 93 Nasal Cannula 3.00 11/04/21 19:00 92 11/04/21 18:00 89 16 93 Nasal Cannula 3.00 11/04/21 17:00 89 18 83/38 (53) 92 Nasal Cannula 3.00 11/04/21 16:00 91 23 96 Nasal Cannula 3.00 11/04/21 15:42 96 Nasal Cannula 2.00 11/04/21 15:00 87 16 100 Nasal Cannula 3.00 11/04/21 14:00 93 21 92 Nasal Cannula 3.00 11/04/21 13:00 91 11/04/21 13:00 91 24 94 Nasal Cannula 3.00 11/04/21 12:54 Nasal Cannula 3.00 I & O 11/05/21 06:59 Intake Total 6465 ml Output Total 1590 ml Balance 4875 ml Capillary Refill : Less Than 3 Seconds General Appearance: No Apparent Distress HEENT: PERRL/EOMI Neck: Full Range of Motion Respiratory: Chest Non Tender, Rhonci, Wheezing Cardiovascular: Regular Rate, Rhythm Gastrointestinal: normal bowel sounds, non tender Extremity: Normal Capillary Refill Neurologic/Psychiatric: Alert, Oriented x3 Skin: Normal Color Lymphatic: No Adenopathy Results Lab Laboratory Tests 11/04/21 17:41: Glucometer 176H 11/04/21 18:07: Sodium Level 135, Potassium Level 3.7, Chloride Level 104, Carbon Dioxide Level 20L, Anion Gap 11, Blood Urea Nitrogen 12, Creatinine 1.80H, Estimat Glomerular Filtration Rate 28, BUN/Creatinine Ratio 7, Glucose Level 171H, Calcium Level 6.5L 11/04/21 18:16: Lactic Acid Level 1.69 11/05/21 00:41: Glucometer 201H 11/05/21 03:40: White Blood Count 22.8H, Red Blood Count 2.69L, Hemoglobin 7.7L, Hematocrit 23L, Mean Corpuscular Volume 86, Mean Corpuscular Hemoglobin 29, Mean Corpuscular Hemoglobin Concent 34, Red Cell Distribution Width 18.0H, Platelet Count 237, Mean Platelet Volume 10.3, Immature Granulocyte % (Auto) 1, Neutrophils (%) (Auto) 91H, Lymphocytes (%) (Auto) 3L, Monocytes (%) (Auto) 4, Eosinophils (%) (Auto) 1, Basophils (%) (Auto) 0, Neutrophils # (Auto) 20.7H, Lymphocytes # (Auto) 0.7L, Monocytes # (Auto) 0.9, Eosinophils # (Auto) 0.2, Basophils # (Auto) 0.1, Immature Granulocyte # (Auto) 0.3H, Sodium Level 132L, Potassium Level 4.0, Chloride Level 103, Carbon Dioxide Level 17L, Anion Gap 12, Blood Urea Nitrogen 13, Creatinine 1.77H, Estimat Glomerular Filtration Rate 28, BUN/Creatinine Ratio 7, Glucose Level 211H, Calcium Level 6.3L, Corrected Calcium 8.0L, Phosphorus Level 3.7, Magnesium Level 1.4L, Total Bilirubin 0.7, Aspartate Amino Transf (AST/SGOT) 39H, Alanine Aminotransferase (ALT/SGPT) 13, Alkaline Phosphatase 109, Total Protein 5.2L, Albumin 1.9L 11/05/21 11:47: Glucometer 243H Microbiology 11/03/21 Urine Culture - Final, Complete Yeast species Klebsiella pneumoniae 11/03/21 Blood Culture - Preliminary, Resulted No growth Assessment/Plan Assessment/Plan Assess & Plan/Chief Complaint ileus s/p ileocolonic resection for ischemic bowel, resp failure, cardiac failure, UTI. having copious loose stools. stool for c.diff. cardiac diet. MONICA FERNANDEZ MD Nov 05, 2021 12:04
--- NOTE | 2021-11-05 13:28 | Physical Therapy Progress Note ---
Therapy Progress Note Patient refuses again this afternoon. She says "I'm too tired, come back tomorrow". ELVIS PEREZ PT Nov 05, 2021 13:28
[2021-11-05] MEDS: VANCOMYCIN 1500 MG/NS 500 ML IVPB IV SCH ×2 (14:54)
--- NOTE | 2021-11-05 15:19 | Progress Note - Cardiology ---
Cardiology SOAP Progress Note Subjective: Gen malaise and weakness Shortness of breath with activity No palp No cp No n/v/d Objective: I&O/Vital Signs 11/05/21 11/05/21 11/05/21 11/05/21 03:34 04:00 05:00 06:00 Pulse 92 91 92 Resp 24 24 20 B/P (MAP) 88/49 130/60 (83) 151/61 (91) 111/49 (69) Pulse Ox 96 95 94 O2 Delivery Nasal Cannula Nasal Cannula Nasal Cannula O2 Flow Rate 3.00 3.00 3.00 11/05/21 11/05/21 11/05/21 11/05/21 07:00 07:00 08:00 08:00 Temp 36.3 Pulse 90 87 90 B/P (MAP) 119/63 (81) 98/50 (66) Pulse Ox 97 92 O2 Delivery Nasal Cannula Nasal Cannula O2 Flow Rate 3.00 3.00 11/05/21 11/05/21 11/05/21 11/05/21 08:42 08:54 09:00 10:00 Pulse 90 98 B/P (MAP) 114/50 (71) 113/46 (68) Pulse Ox 96 93 96 O2 Delivery Nasal Cannula Nasal Cannula Nasal Cannula Nasal Cannula O2 Flow Rate 3.00 2.00 3.00 3.00 FiO2 94 11/05/21 11/05/21 11/05/21 11/05/21 11:00 12:00 12:03 12:52 Pulse 88 85 88 86 Resp 17 10 B/P (MAP) 111/66 (81) 120/73 (89) 111/66 Pulse Ox 96 94 O2 Delivery Nasal Cannula Nasal Cannula O2 Flow Rate 3.00 3.00 11/05/21 11/05/21 11/05/21 11/05/21 13:00 13:41 14:00 15:00 Temp 36.0 Pulse 93 94 93 Resp 27 B/P (MAP) 128/54 (78) 118/62 (80) 128/53 (78) Pulse Ox 95 96 95 O2 Delivery Nasal Cannula Nasal Cannula Nasal Cannula O2 Flow Rate 3.00 3.00 3.00 11/05/21 15:08 B/P (MAP) O2 Delivery Nasal Cannula O2 Flow Rate 2.00 11/05/21 00:00 Intake Total 3915 ml Output Total 740 ml Balance 3175 ml Constitutional: AAO x 3, well-developed, well-nourished Respiratory: No accessory muscle use, No respiratory distress; chest expansion is symmetric, chest is bilaterally symmetric, rhonchi (scattered), other (good air entry) Cardiovascular: regular rate-rhythm; No JVD; S1 and S2 Gastrointestional: other (post op abdomen) Extremities: no lower extremity edema bilateral Neurologic/Psychiatric: grossly intact (moves all extremities) Skin: No rash on exposed areas, No ulcerations on exposed areas Results/Procedures: Labs Laboratory Tests 11/04/21 17:41: Glucometer 176H 11/04/21 18:07: Sodium Level 135, Potassium Level 3.7, Chloride Level 104, Carbon Dioxide Level 20L, Anion Gap 11, Blood Urea Nitrogen 12, Creatinine 1.80H, Estimat Glomerular Filtration Rate 28, BUN/Creatinine Ratio 7, Glucose Level 171H, Calcium Level 6.5L 11/04/21 18:16: Lactic Acid Level 1.69 11/05/21 00:41: Glucometer 201H 11/05/21 03:40: White Blood Count 22.8H, Red Blood Count 2.69L, Hemoglobin 7.7L, Hematocrit 23L, Mean Corpuscular Volume 86, Mean Corpuscular Hemoglobin 29, Mean Corpuscular Hemoglobin Concent 34, Red Cell Distribution Width 18.0H, Platelet Count 237, Mean Platelet Volume 10.3, Immature Granulocyte % (Auto) 1, Neutrophils (%) (Auto) 91H, Lymphocytes (%) (Auto) 3L, Monocytes (%) (Auto) 4, Eosinophils (%) (Auto) 1, Basophils (%) (Auto) 0, Neutrophils # (Auto) 20.7H, Lymphocytes # (Aut o) 0.7L, Monocytes # (Auto) 0.9, Eosinophils # (Auto) 0.2, Basophils # (Auto) 0.1, Immature Granulocyte # (Auto) 0.3H, Sodium Level 132L, Potassium Level 4.0, Chloride Level 103, Carbon Dioxide Level 17L, Anion Gap 12, Blood Urea Nitrogen 13, Creatinine 1.77H, Estimat Glomerular Filtration Rate 28, BUN/Creatinine Ratio 7, Glucose Level 211H, Calcium Level 6.3L, Corrected Calcium 8.0L, Phosphorus Level 3.7, Magnesium Level 1.4L, Total Bilirubin 0.7, Aspartate Amino Transf (AST/SGOT) 39H, Alanine Aminotransferase (ALT/SGPT) 13, Alkaline Phosphatase 109, Total Protein 5.2L, Albumin 1.9L 11/05/21 11:47: Glucometer 243H Microbiology 11/03/21 Urine Culture - Final, Complete Yeast species Klebsiella pneumoniae 11/03/21 Blood Culture - Preliminary, Resulted No growth Laboratory Tests 11/04/21 03:40 11/04/21 18:07 11/05/21 03:40 A/P: Assessment: Sepsis - likely secondary to UTI - management per medical/eICU services Ileus - seen on CT of 11-04-21 Elevated pro-BNP - likely secondary to hypotension, acute renal failure and sepsis GI - s/p exploratory laparotomy, right hemicolectomy, ileal resection(100cm) with ileocolonic anastamosis on 10/22/21 CAD - reports follows with cardiology at [facility] in [place] and has had cardiac stent placed in June 22, [address] Larry Lrod - reported to be a Cary 3.25mm x 15 mm stent - location unknown Anemia of undetermined etiology - management per medical services Acute on chronic exacerbation of COPD Echo on 10/22/21: LVEF 55-60%, dilated RA DM 2 HTN - uncontrolled HLD H/o frequent falls H/o frequent UTI's Plan: Hypotension requiring pressor support secondary to sepsis - hold all antihypertensives Elevated pro-BNP likely secondary to hypotension, sepsis and acute renal failure Ileus - management per Dr. Perez Anemia of undetermined etiology - management per medical/surgical services Continue antiplatelet therapy as far as possible (given h/o recent cor stenting at [facility], ) Request records from [facility] - have not received yet Monitor lab closely MIRTA AL MD [facility]S Nov 05, 2021 15:19
[2021-11-05] MEDS: ONDANSETRON 4 MG/2 ML (SDV) Z0FRAN IV PRN (21:39)
[2021-11-05] MEDS: HYDROcodone/APAP 7.5 MG/325 MG (LORTAB, LORCET PLUS) TABLET PO PRN (21:44)
[2021-11-06] VITALS (14 sets, daily range): BP systolic 100–121; BP diastolic 50–74
[2021-11-06] MEDS: RT-ALBUTEROL/IPRATROPIUM 3 ML (DUONEB) VIAL INH SCH ×4 (03:21→21:27)
[2021-11-06] MEDS: HYDROCORTISONE 100 MG/2 ML (Solu-CORTEF) VIAL IV SCH ×3 (05:03→20:35)
[2021-11-06] MEDS: MEROPENEM 500 MG in NS (IVPB) 100 ML IV SCH ×3 (05:03→17:54)
[2021-11-06 05:26] LABS: BASOPHILS % (AUTO) 0 % (0-10); EOSINOPHILS % (AUTO) 0 % (0-10); HEMATOCRIT 23 % (35-52); HEMOGLOBIN 7.5 g/dL (11.5-16.0); LYMPHOCYTES # (AUTO) 0.7 10^3/uL (1.0-4.0); LYMPHOCYTES % (AUTO) 4 % (12-44); MEAN CORPUSCULAR HEMOGLOBIN 28 pg (25-34); MEAN CORPUSCULAR HGB CONC 33 g/dL (32-36); MEAN CORPUSCULAR VOLUME 86 fL (80-99); MEAN PLATELET VOLUME 10.1 fL (9.0-12.2); MONOCYTES # (AUTO) 0.7 10^3/uL (0.0-1.0); MONOCYTES % (AUTO) 4 % (0-12); NEUTROPHILS # (AUTO) 15.5 10^3/uL (1.8-7.8); NEUTROPHILS % (AUTO) 90 % (42-75); PLATELET COUNT 242 10^3/uL (130-400); WHITE BLOOD COUNT 17.2 10^3/uL (4.3-11.0)
[2021-11-06 05:39] LABS: POTASSIUM 3.2 MMOL/L (3.6-5.0)
[2021-11-06 05:40] LABS: CALCIUM 6.3 MG/DL (8.5-10.1)
[2021-11-06 05:42] LABS: TOTAL PROTEIN 5.5 GM/DL (6.4-8.2)
[2021-11-06 05:43] LABS: BILIRUBIN,TOTAL 0.5 MG/DL (0.1-1.0)
[2021-11-06 05:44] LABS: PHOSPHORUS 2.9 MG/DL (2.3-4.7)
[2021-11-06 05:45] LABS: CREATININE SERUM 1.33 MG/DL (0.60-1.30)
[2021-11-06 05:46] LABS: MAGNESIUM 1.7 MG/DL (1.6-2.4)
[2021-11-06] MEDS: KCL 20 MEQ TAB (K-DUR) PO SCH (06:04)
[2021-11-06] MEDS: MAGNESIUM 1 GM/100 ML IVPB 100 ML IV SCH ×3 (06:05→08:21)
[2021-11-06] MEDS: POTASSIUM CL 10MEQ/50ML IVPB 50 ML IV SCH ×5 (06:05→09:27)
[2021-11-06] MEDS: NOREPINEPHRINE 8 MG/250 ML 250 ML IV SCH (06:06)
[2021-11-06] MEDS: inSUlin ASPART (NovoLOG) 1 UNIT/0.01 ML (CHARGE PER UNIT) SC SCH ×4 (06:28→20:34)
[2021-11-06] MEDS: polyethylene glycoL POWDER 17 GM (MIRALAX) PACK PO SCH ×2 (08:21→20:34)
[2021-11-06] MEDS: PANTOPRAZOLE 40 MG (PROTONIX) VIAL IV SCH (08:21)
[2021-11-06] MEDS: ENOXAPARIN 40 MG/0.4 ML (LOVENOX) SYR SC SCH (08:22)
[2021-11-06] MEDS: CLOPIDOGREL 75 MG (PLAVIX) TABLET PO SCH (08:22)
--- NOTE | 2021-11-06 09:16 | Tele-ICU Progress Note ---
Progress Note video rounds completed 71 y/o female admitted with sepsis from urinary tract source Was on vasopressors, no weaned s/p right hemicolectomy for ischemic right colon on 10/21/21 Currently doing weell sitting up in bed, comfortable, eating Vitals all normal On meropenam for UTI IMP: Assessment: Sepsis - likely secondary to UTI Ileus - seen on CT of 11-04-21 Elevated pro-BNP - likely secondary to hypotension, acute renal failure and sepsis CAD - reports follows with cardiology at [facility] in [place] and has had cardiac stent placed in June 22, [address] Larry Lord - reported to be a Cary 3.25mm x 15 mm stent - location unknown Anemia of undetermined etiology - management per medical services Acute on chronic exacerbation of COPD Echo on 10/22/21: LVEF 55-60%, dilated RA DM 2 Plan: PLAN: currently stable Blood sugar 211 today Focused Exam Lactate Level 11/03/21 16:05: Lactic Acid Level 1.75 11/04/21 07:55: Lactic Acid Level 1.80 11/04/21 18:16: Lactic Acid Level 1.69 Height, Weight, BMI Height: '" Weight: lbs. oz. kg; 39.08 BMI Method: Time of Focused Exam: 14:00 Laboratory Tests 11/06/21 05:02 Labs Labs Laboratory Tests 11/05/21 11:47: Glucometer 243H 11/05/21 17:30: Glucometer 229H 11/05/21 22:40: Glucometer 237H 11/06/21 05:02: White Blood Count 17.2H, Red Blood Count 2.69L, Hemoglobin 7.5L, Hematocrit 23L, Mean Corpuscular Volume 86, Mean Corpuscular Hemoglobin 28, Mean Corpuscular Hemoglobin Concent 33, Red Cell Distribution Width 18.2H, Platelet Count 242, Mean Platelet Volume 10.1, Immature Granulocyte % (Auto) 2, Neutrophils (%) (Auto) 90H, Lymphocytes (%) (Auto) 4L, Monocytes (%) (Auto) 4, Eosinophils (%) (Auto) 0, Basophils (%) (Auto) 0, Neutrophils # (Auto) 15.5H, Lymphocytes # (Auto) 0.7L, Monocytes # (Auto) 0.7, Eosinophils # (Auto) 0.0, Basophils # (Auto) 0.0, Immature Granulocyte # (Auto) 0.3H, Sodium Level 134L, Potassium Level 3.2L, Chloride Level 105, Carbon Dioxide Level 19L, Anion Gap 10, Blood Urea Nitrogen 14, Creatinine 1.33H, Estimat Glomerular Filtration Rate 39, BUN/Creatinine Ratio 11, Glucose Level 211H, Calcium Level 6.3L, Corrected Calcium 7.9L, Phosphorus Level 2.9, Magnesium Level 1.7, Total Bilirubin 0.5, A spartate Amino Transf (AST/SGOT) 35H, Alanine Aminotransferase (ALT/SGPT) 14, Alkaline Phosphatase 119, Total Protein 5.5L, Albumin 2.0L Microbiology 11/03/21 Urine Culture - Final, Complete Yeast species Klebsiella pneumoniae 11/03/21 Blood Culture - Preliminary, Resulted No growth DENIA SANTAMARIA MD Nov 06, 2021 09:16
[2021-11-06] MEDS: FLUCONAZOLE 200 MG/100 ML 50 ML, EMPTY IV BAG (PVC) 1 EA IV SCH ×2 (09:27)
--- NOTE | 2021-11-06 10:52 | Progress Note ---
Subjective Subjective/Events-last exam Pt is much more alert today, states she feels pretty well but is cold. She doesn't remember why she is here or seeing me the last 2 days, but knows where she is and when it is. Focused Exam Lactate Level 11/03/21 16:05: Lactic Acid Level 1.75 11/04/21 07:55: Lactic Acid Level 1.80 11/04/21 18:16: Lactic Acid Level 1.69 Time of Focused Exam: 14:00 Objective Exam Last Set of Vital Signs Vital Signs Date Time Temp Pulse Resp B/P (MAP) Pulse Ox O2 Delivery O2 Flow Rate FiO2 11/06/21 10:00 82 22 119/60 (79) 99 Nasal Cannula 2.00 11/06/21 08:31 100 11/05/21 23:03 36.3 Capillary Refill : Less Than 3 Seconds I&O Intake and Output 11/06/21 00:00 Intake Total 4250 ml Output Total 2075 ml Balance 2175 ml Intake Oral 2800 ml IV Total 1450 ml Output Urine Total 2075 ml General: Alert, Oriented X3 Lungs: Clear to Auscultation, Normal Air Movement Heart: Regular Rate, No Murmurs Abdomen: Normal Bowel Sounds, Soft, No Tenderness Extremities: Other (1+ pitting edema in lower legs) Neuro: Normal Speech Psych/Mental Status: Mental Status NL Results/Procedures Lab Laboratory Tests 11/05/21 11:47: Glucometer 243H 11/05/21 17:30: Glucometer 229H 11/05/21 22:40: Glucometer 237H 11/06/21 05:02: White Blood Count 17.2H, Red Blood Count 2.69L, Hemoglobin 7.5L, Hematocrit 23L, Mean Corpuscular Volume 86, Mean Corpuscular Hemoglobin 28, Mean Corpuscular Hemoglobin Concent 33, Red Cell Distribution Width 18.2H, Platelet Count 242, Mean Platelet Volume 10.1, Immature Granulocyte % (Auto) 2, Neutrophils (%) (Auto) 90H, Lymphocytes (%) (Auto) 4L, Monocytes (%) (Auto) 4, Eosinophils (%) (Auto) 0, Basophils (%) (Auto) 0, Neutrophils # (Auto) 15.5H, Lymphocytes # (Auto) 0.7L, Monocytes # (Auto) 0.7, Eosinophils # (Auto) 0.0, Basophils # (Auto) 0.0, Immature Granulocyte # (Auto) 0.3H, Sodium Level 134L, Potassium Level 3.2L, Chloride Level 105, Carbon Dioxide Level 19L, Anion Gap 10, Blood Urea Nitrogen 14, Creatinine 1.33H, Estimat Glomerular Filtration Rate 39, BUN/Creatinine Ratio 11, Glucose Level 211H, Calcium Level 6.3L, Corrected Calcium 7.9L, Phosphorus Level 2.9, Magnesium Level 1.7, Total Bilirubin 0.5, Aspartate Amino Transf (AST/SGOT) 35H, Alanine Aminotransferase (ALT/SGPT) 14, Alkaline Phosphatase 119, Total Protein 5.5L, Albumin 2.0L Microbiology 11/03/21 Urine Culture - Final, Complete Yeast species Klebsiella pneumoniae 11/03/21 Blood Culture - Preliminary, Resulted No growth Radiology CT abd/pelvis 11/03/21 IMPRESSION: 1. Suspect diffuse ileus. The patient may benefit from NG tube placement 2. No abscess, free air or free fluid. 3. postoperative changes involving the proximal colon. 4. Advanced atherosclerotic disease without obvious solid organ or bowel ischemia. Assessment/Plan Assessment/Plan (1) Septic shock Status: Acute Assessment & Plan: Secondary to UTI versus pneumonia vs bowel source. Started on vancomycin and meropenem. Fluconazole added per Dr. Perez, yeast in urine. Overnight had low blood pressure, but not severe, managed with fluid boluses, however, this morning now BP less than 70s having just finished a bolus, will transfer to ICU add levophed. Lactic acid already normalized overnight, remains normal this am. 11/05- solucortef added per ICU physician, continues to requiring levophed. Continued on meropnem and vancomycin and fluconazole. 11/06 much improved, continue meropenem and fluconazole, able to titrate off of levophed, will transfer to med/surg. (2) Xoffk-[id number] kidney injury Status: Acute Assessment & Plan: Suspect secondary to sepsis. Improving. (3) Hypoxia Status: Resolved Assessment & Plan: Unclear etiology, CT chest appears similar to prior, not highly suspicious for new pneumonia. Continue supplemental oxygen as needed, wean as tolerated. Anticipate worsening given history of CHF and need for large amount of fluid for septic shock. 11/06- on room air this morning, monitor closely as still on some IV fluid, will stop as soon as able based on blood pressure. (4) Hypokalemia Status: Acute Assessment & Plan: Replace and follow. (5) Lactic acid acidosis Status: Resolved Assessment & Plan: Secondary to sepsis versus ischemia- CT abd/pelvis without clear recurrent ischemic colitis, Surgery consulted. (6) Hyponatremia Status: Acute Assessment & Plan: Suspect hypovolemic, resolved with IVF overnight after admit, slightly low again today, continue fluid replacement. 11/06 improving (7) UTI (urinary tract infection) Status: Acute Assessment & Plan: Possibly acute, difficult to tell given recent hospital stay. On Vanc and meropenem initially, culture pending- has yeast and klebsiella so far. MRSA screen neg, vanc was d/c. Qualifiers: Qualified Codes: N30.01 - Acute cystitis with hematuria (8) Pneumonia Status: Acute Assessment & Plan: Possible, but was just inpatient with similar CT findings, unclear if this is new acute pneumonia vs persistent changes. On abx due to septic shock. (9) Ileus Status: Acute Assessment & Plan: Post-op bowel resection for ischemic bowel earlier this month. Surgery consulted, appreciate recommendations. (10) Dehydration Status: Resolved (11) CHF (congestive heart failure) Status: Chronic Assessment & Plan: Consult Cardiology given need for large amounts of fluid, hypotension and history of CHF. Per Dr. Randall, had recent normal echo. Qualifiers: Qualified Codes: I50.32 - Chronic diastolic (congestive) heart failure (12) CAD (coronary artery disease) Status: Chronic Assessment & Plan: If no surgical needs, resume aspirin and plavix Qualifiers: Qualified Codes: I25.10 - Atherosclerotic heart disease of [place] coronary artery without angina pectoris (13) COPD (chronic obstructive pulmonary disease) Status: Chronic (14) Diabetes Status: Chronic Assessment & Plan: Sliding scale insulin. Qualifiers: Qualified Codes: E11.65 - Type 2 diabetes mellitus with hyperglycemia; Z79.4 - long-term (current) use of insulin (15) Physical debility Status: Acute Assessment & Plan: Home health was planned after last d/c, not yet set up. PT/OT, further management pending hospital course. (16) DVT prophylaxis Status: Acute Assessment & Plan: Enoxaparin if okay with surgery YASMIN TOLENTINO MD Nov 06, 2021 10:52
[2021-11-06] MEDS: NS IV 1000 ML 1,000 ML IV SCH (11:31)
--- NOTE | 2021-11-06 11:57 | Physical Therapy Daily Note ---
PT Daily Note-Current Subjective Pt. initially states she is willing to do some bed exercises but will not get out of bed. Pt. later agrees to sit EOB with encouragement. Pt. states she has fallen several times and getting on her feet is scary Pain Location: No Pain Reported Mental Status Patient Orientation: Normal For Age Attachments: Parker Catheter, Other-See Comments (BP, multiple cardiac and other monitoring) Transfers SCALE: Activities may be completed with or without assistive devices. 1-Epgeftchgl-iwgwtmf completes the activity by him/herself with no assistance from a helper. 5-Set-up or Clean-up Assistance-helper sets up or cleans up; patient completes activity. Hubbard assists only prior to or following the activity. 4-Supervision or Touching Assistance-helper provides verbal cues and/or touching/steadying and/or contact guard assistance as patient completes activity. Assistance may be provided throughout the activity or intermittently. 3-Partial/Moderate Assistance-helper does LESS THAN HALF the effort. Hubbard lifts, holds or supports trunk or limbs, but provides less than half the effort. 2-Substantial/Maximal Assistance-helper does MORE THAN HALF the effort. Hubbard lifts or holds trunk or limbs and provides more than half the effort. 8-Qaajssfos-smsjpb does ALL the effort. Patient does none of the effort to complete the activity. Or, the assistance of 2 or more helpers is required for the patient to complete the activity. If activity was not attempted, code reason: 7-Patient Refused. 9-Not Applicable-not attempted and the patient did not perform the activity bef ore the current illness, exacerbation or injury. 10-Not Attempted due to Environmental Limitations-(lack of equipment, weather r estraints, etc.). 88-Not Attempted due to Medical Conditions or Safety Concerns. Roll Left & Right (QC): 3 Sit to Lying (QC): 3 Lying to Sitting/Side of Bed(Q: 3 multiple trials to get to sitting from sup to side. pt. suddenly laying back stating she cant or needs rest but finally comes to sitting with assist of mod Weight Bearing Right Lower Extremity: Right Weight Bearing/Tolerated Left Lower Extremity: Left Weight Bearing/Tolerated Exercises Supine Ex: Ankle pumps, Quad Set, Rolling, Heel Slides, Scooting, Hip abd/add Supine Reps: 15 Treatments sat EOB 8 m, in supine pt. pulled self up in flat bed using rails and support to hold hooklying stable. TRFs to EOB, bed LE ex Assessment Current Status: Fair Progress PT Longterm Goals Last Pattern Grader Goals PT Longterm Goals Time Frame: Nov 18, 2021 Roll Left & Right (QC): 4 Sit to Lying (QC): 4 Lying-Sitting on Side/Bed(QC): 4 Sit to Stand (QC): 4 Chair/Ewr-yk-Irbjt Xfer(QC): 4 Toilet Transfer (QC): 4 Car Transfer (QC): 4 Does the Patient Walk: Yes Walk 10 feet (QC): 4 1 Step (curb) (QC): 4 4 Steps (QC): 4 PT Plan Treatment/Plan Treatment Plan: Continue Plan of Care Treatment Plan: Bed Mobility, Functional Activity Virgen, Functional Strength, Gait, Safety, Therapeutic Exercise, Transfers Treatment Duration: Nov 18, 2021 Frequency: 6 times per week Estimated Hrs Per Day: .5 hour per day Patient and/or Family Agrees t: Yes Safety Risks/Education Patient Education: Transfer Techniques, Correct Positioning, Safety Issues Teaching Recipient: Patient Teaching Methods: Discussion Response to Teaching: Return Demonstration, Reinforcement Needed Time/GCodes Time In: 1130 Time Out: 1155 Total Billed Treatment Time: 25 Total Billed Treatment 1,FA 15m,EX10m BLANCHE MOORE DINING ROOM HOSTESS Nov 06, 2021 11:57
[2021-11-06] MEDS ORDERED: TROUGH ORDER-PHARMACY XX NR (13:00)
--- NOTE | 2021-11-06 13:29 | Progress Note - Cardiology ---
Cardiology SOAP Progress Note Subjective: No cp or palp or syncope No shortness of breath at rest No swelling No n/v/d Gen weakness and malaise presen Objective: I&O/Vital Signs 11/06/21 11/06/21 11/06/21 11/06/21 02:00 03:00 03:21 04:00 Pulse 93 80 93 Resp 18 14 16 B/P (MAP) 102/62 (75) 100/55 (70) 113/56 (75) Pulse Ox 96 98 97 97 O2 Delivery Nasal Cannula Nasal Cannula Nasal Cannula Nasal Cannula O2 Flow Rate 2.00 2.00 2.00 2.00 11/06/21 11/06/21 11/06/21 11/06/21 05:00 06:00 07:00 07:00 Pulse 90 92 93 92 Resp 14 13 17 B/P (MAP) 109/64 (79) 113/68 (83) 108/74 (85) Pulse Ox 97 97 98 O2 Delivery Nasal Cannula Nasal Cannula Nasal Cannula O2 Flow Rate 2.00 2.00 2.00 11/06/21 11/06/21 11/06/21 11/06/21 08:00 08:31 09:00 09:45 Pulse 96 92 Resp 17 23 B/P (MAP) 105/69 (81) 113/56 (75) Pulse Ox 98 96 99 O2 Delivery Nasal Cannula Nasal Cannula Nasal Cannula Nasal Cannula O2 Flow Rate 2.00 2.00 2.00 1.00 FiO2 100 11/06/21 11/06/21 11/06/21 11/06/21 10:00 11:08 12:00 13:00 Pulse 82 93 93 Resp 22 20 B/P (MAP) 119/60 (79) 121/65 (83) Pulse Ox 99 96 O2 Delivery Nasal Cannula Room Air Nasal Cannula O2 Flow Rate 2.00 1.00 11/06/21 00:00 Intake Total 2400 ml Output Total 825 ml Balance 1575 ml Constitutional: AAO x 3, well-developed, well-nourished Respiratory: No accessory muscle use, No respiratory distress; chest expansion is symmetric, chest is bilaterally symmetric, rhonchi (scattered), other (good air entry) Cardiovascular: regular rate-rhythm; No JVD; S1 and S2 Gastrointestional: other (post op abdomen) Extremities: no lower extremity edema bilateral Neurologic/Psychiatric: grossly intact (moves all extremities) Skin: No rash on exposed areas, No ulcerations on exposed areas Results/Procedures: Labs Laboratory Tests 11/05/21 17:30: Glucometer 229H 11/05/21 22:40: Glucometer 237H 11/06/21 05:02: White Blood Count 17.2H, Red Blood Count 2.69L, Hemoglobin 7.5L, Hematocrit 23L, Mean Corpuscular Volume 86, Mean Corpuscular Hemoglobin 28, Mean Corpuscular Hemoglobin Concent 33, Red Cell Distribution Width 18.2H, Platelet Count 242, Mean Platelet Volume 10.1, Immature Granulocyte % (Auto) 2, Neutrophils (%) (Auto) 90H, Lymphocytes (%) (Auto) 4L, Monocytes (%) (Auto) 4, Eosinophils (%) ( Auto) 0, Basophils (%) (Auto) 0, Neutrophils # (Auto) 15.5H, Lymphocytes # (Auto) 0.7L, Monocytes # (Auto) 0.7, Eosinophils # (Auto) 0.0, Basophils # (Auto) 0.0, Immature Granulocyte # (Auto) 0.3H, Sodium Level 134L, Potassium Level 3.2L, Chloride Level 105, Carbon Dioxide Level 19L, Anion Gap 10, Blood Urea Nitrogen 14, Creatinine 1.33H, Estimat Glomerular Filtration Rate 39, BUN/Creatinine Ratio 11, Glucose Level 211H, Calcium Level 6.3L, Corrected Calcium 7.9L, Phosphorus Level 2.9, Magnesium Level 1.7, Total Bilirubin 0.5, Aspartate Amino Transf (AST/SGOT) 35H, Alanine Aminotransferase (ALT/SGPT) 14, Alkaline Phosphatase 119, Total Protein 5.5L, Albumin 2.0L 11/06/21 11:17: Glucometer 198H Microbiology 11/05/21 MRSA Screen - Final, Complete MRSA not isolated 11/03/21 Urine Culture - Final, Complete Yeast species Klebsiella pneumoniae 11/03/21 Blood Culture - Preliminary, Resulted No growth Laboratory Tests 11/04/21 18:07 11/05/21 03:40 11/06/21 05:02 A/P: Assessment: Sepsis - likely secondary to UTI - management per medical/eICU services Ileus - seen on CT of 11-04-21 Elevated pro-BNP - likely secondary to hypotension, acute renal failure and sepsis GI - s/p exploratory laparotomy, right hemicolectomy, ileal resection(100cm) with ileocolonic anastamosis on 10/22/21 CAD - reports follows with cardiology at [facility] in [place] and has had cardiac stent placed in June 22, [address] Larry Lord - reported to be a [place] 3.25mm x 15 mm stent - location unknown Anemia of undetermined etiology - management per medical services Acute on chronic exacerbation of COPD Echo on 10/22/21: LVEF 55-60%, dilated RA DM 2 HTN - controlled HLD H/o frequent falls H/o frequent UTI's Plan: Hypotension appears to have resolved. Holding off on anti-htn to avoid hypotension Replenish K Consider blood transfusion if H/H drops any more Monitor lab closely MIRTA AL MD FACP FAC CCDS Nov 06, 2021 13:29
[2021-11-07] VITALS (7 sets, daily range): BP systolic 90–146; BP diastolic 56–120
[2021-11-07] MEDS: NS IV 1000 ML 1,000 ML IV SCH (02:25)
[2021-11-07 02:53] LABS: BASOPHILS % (AUTO) 0 % (0-10); EOSINOPHILS % (AUTO) 0 % (0-10); HEMATOCRIT 24 % (35-52); HEMOGLOBIN 7.8 g/dL (11.5-16.0); LYMPHOCYTES # (AUTO) 0.7 10^3/uL (1.0-4.0); LYMPHOCYTES % (AUTO) 5 % (12-44); MEAN CORPUSCULAR HEMOGLOBIN 28 pg (25-34); MEAN CORPUSCULAR HGB CONC 33 g/dL (32-36); MEAN CORPUSCULAR VOLUME 85 fL (80-99); MEAN PLATELET VOLUME 10.1 fL (9.0-12.2); MONOCYTES # (AUTO) 0.4 10^3/uL (0.0-1.0); MONOCYTES % (AUTO) 3 % (0-12); NEUTROPHILS # (AUTO) 11.9 10^3/uL (1.8-7.8); NEUTROPHILS % (AUTO) 90 % (42-75); PLATELET COUNT 245 10^3/uL (130-400); WHITE BLOOD COUNT 13.2 10^3/uL (4.3-11.0)
[2021-11-07] MEDS: RT-ALBUTEROL/IPRATROPIUM 3 ML (DUONEB) VIAL INH SCH ×4 (02:56→20:55)
[2021-11-07 02:59] LABS: ALBUMIN 2.2 GM/DL (3.2-4.5); POTASSIUM 3.7 MMOL/L (3.6-5.0)
[2021-11-07 03:01] LABS: CALCIUM 6.4 MG/DL (8.5-10.1)
[2021-11-07 03:02] LABS: TOTAL PROTEIN 5.8 GM/DL (6.4-8.2)
[2021-11-07 03:04] LABS: BILIRUBIN,TOTAL 0.5 MG/DL (0.1-1.0)
[2021-11-07 03:06] LABS: CREATININE SERUM 1.2 MG/DL (0.60-1.30)
[2021-11-07] MEDS: inSUlin ASPART (NovoLOG) 1 UNIT/0.01 ML (CHARGE PER UNIT) SC SCH ×6 (06:17→21:32)
[2021-11-07] MEDS: HYDROCORTISONE 100 MG/2 ML (Solu-CORTEF) VIAL IV SCH ×3 (06:17→20:25)
[2021-11-07] MEDS: MEROPENEM 500 MG in NS (IVPB) 100 ML IV SCH ×4 (06:18→17:00)
[2021-11-07 06:41] LABS: PHOSPHORUS 2.9 MG/DL (2.3-4.7)
[2021-11-07 06:44] LABS: MAGNESIUM 2.1 MG/DL (1.6-2.4)
[2021-11-07] MEDS: polyethylene glycoL POWDER 17 GM (MIRALAX) PACK PO SCH ×2 (09:14→20:23)
[2021-11-07] MEDS: PANTOPRAZOLE 40 MG (PROTONIX) VIAL IV SCH (09:14)
[2021-11-07] MEDS: CLOPIDOGREL 75 MG (PLAVIX) TABLET PO SCH (09:14)
[2021-11-07] MEDS: ENOXAPARIN 40 MG/0.4 ML (LOVENOX) SYR SC SCH (09:14)
[2021-11-07] MEDS: FLUCONAZOLE 200 MG/100 ML 50 ML, EMPTY IV BAG (PVC) 1 EA IV SCH ×2 (10:02)
--- NOTE | 2021-11-07 10:18 | Progress Note ---
Subjective Subjective/Events-last exam Pt states she is feeling very well today. Is eating biscuits and peaches and says her abdomen feels fine. She thinks she might be able to get to the bedside commode today. Focused Exam Lactate Level 11/04/21 18:16: Lactic Acid Level 1.69 Time of Focused Exam: 14:00 Objective Exam Last Set of Vital Signs Vital Signs Date Time Temp Pulse Resp B/P (MAP) Pulse Ox O2 Delivery O2 Flow Rate FiO2 11/07/21 08:56 94 Nasal Cannula 2.00 11/07/21 08:00 36.2 93 18 146/76 (99) 11/06/21 08:31 100 Capillary Refill : Less Than 3 Seconds I&O Intake and Output 11/07/21 00:00 Intake Total 1350 ml Output Total 750 ml Balance 600 ml Intake Oral 1150 ml IV Total 200 ml Output Urine Total 750 ml General: Alert, No Acute Distress Lungs: Clear to Auscultation, Normal Air Movement Heart: Regular Rate, No Murmurs Abdomen: Normal Bowel Sounds, Soft, No Tenderness Neuro: Normal Speech Results/Procedures Lab Laboratory Tests 11/06/21 11:17: Glucometer 198H 11/06/21 15:45: Glucometer 222H 11/06/21 20:12: Glucometer 201H 11/07/21 02:35: White Blood Count 13.2H, Red Blood Count 2.77L, Hemoglobin 7.8L, Hematocrit 24L, Mean Corpuscular Volume 85, Mean Corpuscular Hemoglobin 28, Mean Corpuscular Hemoglobin Concent 33, Red Cell Distribution Width 18.1H, Platelet Count 245, Mean Platelet Volume 10.1, Immature Granulocyte % (Auto) 2, Neutrophils (%) (Auto) 90H, Lymphocytes (%) (Auto) 5L, Monocytes (%) (Auto) 3, Eosinophils (%) (Auto) 0, Basophils (%) (Auto) 0, Neutrophils # (Auto) 11.9H, Lymphocytes # (Auto) 0.7L, Monocytes # (Auto) 0.4, Eosinophils # (Auto) 0.0, Basophils # (Auto) 0.0, Immature Granulocyte # (Auto) 0.3H, Percent Immature Platelet Fraction 3.3, Sodium Level 132L, Potassium Level 3.7, Chloride Level 104, Carbon Dioxide Level 16L, Anion Gap 12, Blood Urea Nitrogen 14, Creatinine 1.20, Estimat Glomerular Filtration Rate 44, BUN/Creatinine Ratio 12, Glucose Level 213H, Calcium Level 6.4L, Corrected Calcium 7.8L, Phosphorus Level 2.9, Magnesium Level 2.1, Total Bilirubin 0.5, Aspartate Amino Transf (AST/SGOT) 30, Alanine Aminotransferase (ALT/SGPT) 12, Alkaline Phosphatase 120, Total Protein 5.8L, Albumin 2.2L 11/07/21 06:10: Glucometer 213H Microbiology 11/05/21 MRSA Screen - Final, Complete MRSA not isolated 11/03/21 Urine Culture - Final, Complete Yeast species Klebsiella pneumoniae 11/03/21 Blood Culture - Preliminary, Resulted No growth Radiology CT abd/pelvis 11/03/21 IMPRESSION: 1. Suspect diffuse ileus. The patient may benefit from NG tube placement 2. No abscess, free air or free fluid. 3. postoperative changes involving the proximal colon. 4. Advanced atherosclerotic disease without obvious solid organ or bowel ischemia. Assessment/Plan Assessment/Plan (1) Septic shock Status: Acute Assessment & Plan: Secondary to UTI versus pneumonia vs bowel source. Started on vancomycin and meropenem. Fluconazole added per Dr. Perez, yeast in urine. Overnight had low blood pressure, but not severe, managed with fluid boluses, however, this morning now BP less than 70s having just finished a bolus, will transfer to ICU add levophed. Lactic acid already normalized overnight, remains normal this am. 11/05- solucortef added per ICU physician, continues to requiring levophed. Continued on meropnem and vancomycin and fluconazole. 11/06 much improved, continue meropenem and fluconazole, able to titrate off of levophed, will transfer to med/surg. 11/07 continues to improve, d/c continuous IVF. (2) Ogwma-wy-eufbaem kidney injury Status: Resolved Assessment & Plan: Suspect secondary to sepsis. Improving. (3) Hypoxia Status: Acute Assessment & Plan: Unclear etiology, CT chest appears similar to prior, not highly suspicious for new pneumonia. Continue supplemental oxygen as needed, wean as tolerated. Anticipate worsening given history of CHF and need for large amount of fluid for septic shock. 11/06- on room air this morning, monitor closely as still on some IV fluid, will stop as soon as able based on blood pressure. 12/19- using 2 lpm supplemental oxygen today (4) Hypokalemia Status: Acute Assessment & Plan: Replace and follow. (5) Lactic acid acidosis Status: Resolved Assessment & Plan: Secondary to sepsis versus ischemia- CT abd/pelvis without clear recurrent ischemic colitis, Surgery consulted. (6) Hyponatremia Status: Acute Assessment & Plan: Suspect hypovolemic, resolved with IVF overnight after admit, slightly low again today, continue fluid replacement. 11/06 improving (7) UTI (urinary tract infection) Status: Acute Assessment & Plan: Possibly acute, difficult to tell given recent hospital stay. On Vanc and meropenem initially, culture pending- has yeast and klebsiella so far. MRSA screen neg, vanc was d/c. Qualifiers: Qualified Codes: N30.01 - Acute cystitis with hematuria (8) Pneumonia Status: Acute Assessment & Plan: Possible, but was just inpatient with similar CT findings, unclear if this is new acute pneumonia vs persistent changes. On abx due to septic shock. (9) Ileus Status: Acute Assessment & Plan: Post-op bowel resection for ischemic bowel earlier this month. Surgery consulted, appreciate recommendations. (10) Dehydration Status: Resolved (11) CHF (congestive heart failure) Status: Chronic Assessment & Plan: Consult Cardiology given need for large amounts of fluid, hypotension and history of CHF. Per Dr. Randall, had recent normal echo. Qualifiers: Qualified Codes: I50.32 - Chronic diastolic (congestive) heart failure (12) CAD (coronary artery disease) Status: Chronic Assessment & Plan: If no surgical needs, resume aspirin and plavix Qualifiers: Qualified Codes: I25.10 - Atherosclerotic heart disease of [place] coronary artery without angina pectoris (13) COPD (chronic obstructive pulmonary disease) Status: Chronic (14) Diabetes Status: Chronic Assessment & Plan: Sliding scale insulin. 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 PT/OT, further management pending hospital course. (16) DVT prophylaxis Status: Acute Assessment & Plan: Enoxaparin YASMIN TOLENTINO MD Nov 07, 2021 10:18
[2021-11-07] MEDS: GABAPENTIN 400 MG (NEURONTIN) CAP PO SCH ×2 (12:46→20:21)
[2021-11-07] MEDS: ONDANSETRON 4 MG/2 ML (SDV) Z0FRAN IV PRN (12:46)
--- NOTE | 2021-11-07 12:47 | Progress Note - Cardiology ---
Cardiology SOAP Progress Note Subjective: No chest pain or palp or syncope or shortness of breath Notes leg selling No n/v/d Gen weakness and malaise present Objective: I&O/Vital Signs 11/07/21 11/07/21 11/07/21 11/07/21 00:56 01:52 02:56 04:49 Temp 36.4 36.4 36.3 Pulse 90 89 92 Resp 20 18 B/P (MAP) 120/70 (87) 114/68 (83) Pulse Ox 89 70 94 92 O2 Delivery Room Air Room Air Nasal Cannula O2 Flow Rate 2.00 2.00 11/07/21 11/07/21 11/07/21 08:00 08:56 09:00 Temp 36.2 Pulse 93 Resp 18 B/P (MAP) 146/76 (99) Pulse Ox 96 94 O2 Delivery Nasal Cannula Nasal Cannula Room Air O2 Flow Rate 2.00 2.00 11/07/21 00:00 Intake Total 1050 ml Output Total 450 ml Balance 600 ml Constitutional: AAO x 3, well-developed, well-nourished Respiratory: No accessory muscle use, No respiratory distress; chest expansion is symmetric, chest is bilaterally symmetric, rhonchi (scattered), other (good air entry) Cardiovascular: regular rate-rhythm; No JVD; S1 and S2 Gastrointestional: other (post op abdomen) Extremities: other (2+ edema of the legs on 11/07/21) Neurologic/Psychiatric: grossly intact (moves all extremities) Skin: No rash on exposed areas, No ulcerations on exposed areas Results/Procedures: Labs Laboratory Tests 11/06/21 15:45: Glucometer 222H 11/06/21 20:12: Glucometer 201H 11/07/21 02:35: White Blood Count 13.2H, Red Blood Count 2.77L, Hemoglobin 7.8L, Hematocrit 24L, Mean Corpuscular Volume 85, Mean Corpuscular Hemoglobin 28, Mean Corpuscular Hemoglobin Concent 33, Red Cell Distribution Width 18.1H, Platelet Count 245, Mean Platelet Volume 10.1, Immature Granulocyte % (Auto) 2, Neutrophils (%) (Auto) 90H, Lymphocytes (%) (Auto) 5L, Monocytes (%) (Auto) 3, Eosinophils (%) (Auto) 0, Basophils (%) (Auto) 0, Neutrophils # (Auto) 11.9H, Lymphocytes # (Auto) 0.7L, Monocytes # (Auto) 0.4, Eosinophils # (Auto) 0.0, Basophils # (Auto) 0.0, Immature Granulocyte # (Auto) 0.3H, Percent Immature Platelet Fraction 3.3, Sodium Level 132L, Potassium Level 3.7, Chloride Level 104, Carbon Dioxide Level 16L, Anion Gap 12, Blood Urea Nitrogen 14, Creatinine 1.20, Estimat Glomerular Filtration Rate 44, BUN/Creatinine Ratio 12, Glucose Level 213H, Calcium Level 6.4L, Corrected Calcium 7.8L, Phosphorus Level 2.9, Magnesium Level 2.1, Total Bilirubin 0.5, Aspartate Amino Transf (AST/SGOT) 30, Alanine Aminotransferase (ALT/SGPT) 12, Alkaline Phosphatase 120, Total Protein 5.8L, Albumin 2.2L 11/07/21 06:10: Glucometer 213H 11/07/21 11:10: Glucometer 231H Microbiology 11/05/21 MRSA Screen - Final, Complete MRSA not isolated 11/03/21 Urine Culture - Final, Complete Yeast species Klebsiella pneumoniae 11/03/21 Blood Culture - Preliminary, Resulted No growth Laboratory Tests 11/06/21 05:02 11/07/21 02:35 A/P: Assessment: Volume overload Septic shock, resolved Ileus - seen on CT of 11-04-21 GI - s/p exploratory laparotomy, right hemicolectomy, ileal resection(100cm) with ileocolonic anastamosis on 10/22/21 CAD - reports follows with cardiology at [facility] in [place] and has had cardiac stent placed in June 22, [address] Larry Lord - reported to be a [place] 3.25mm x 15 mm stent - location unknown Anemia of undetermined etiology - management per medical services Acute on chronic exacerbation of COPD Echo on 10/22/21: LVEF 55-60%, dilated RA DM 2 HTN - controlled HLD H/o frequent falls H/o frequent UTI's Plan: Low-dose furosemide (plus K) because of physical evidence of volume overload Consider blood transfusion if H/H drops any more Monitor lab closely MIRTA AL MD FACP FAC CCDS Nov 07, 2021 12:47
[2021-11-07] MEDS ORDERED: FUROSEMIDE 40 MG/4 ML INJ (LASIX) IVP ONE (13:00)
[2021-11-07] MEDS ORDERED: inSUlin (REGULAR) HUMAN 1 UNIT/0.01 ML (CHARGE PER UNIT) SC SCH (13:00)
[2021-11-07] MEDS ORDERED: inSUlin NPH (NovoLIN N) 1 UNIT/0.01 ML (CHARGE PER UNIT) SQ SCH (13:00)
[2021-11-07] MEDS ORDERED: KCL 10 MEQ TAB (MICRO K) PO ONE (13:00)
[2021-11-07] MEDS: rOPINIRole 1 MG (REQUIP) TABLET PO SCH (20:21)
[2021-11-07] MEDS: AMITRIPTYLINE 25 MG (ELAVIL) TAB PO SCH (20:23)
[2021-11-07] MEDS: RT--FLUTICASONE/SALMETEROL 232-14 (AIRDUO RespiCLICK) IH SCH (20:56)
[2021-11-08] VITALS (7 sets, daily range): BP systolic 114–144; BP diastolic 57–77
[2021-11-08] MEDS: MEROPENEM 500 MG in NS (IVPB) 100 ML IV SCH ×3 (00:50→11:55)
[2021-11-08] MEDS: RT-ALBUTEROL/IPRATROPIUM 3 ML (DUONEB) VIAL INH SCH ×4 (02:11→21:22)
[2021-11-08 05:18] LABS: BASOPHILS % (AUTO) 0 % (0-10); EOSINOPHILS % (AUTO) 0 % (0-10); HEMATOCRIT 25 % (35-52); HEMOGLOBIN 7.8 g/dL (11.5-16.0); LYMPHOCYTES # (AUTO) 0.8 10^3/uL (1.0-4.0); LYMPHOCYTES % (AUTO) 7 % (12-44); MEAN CORPUSCULAR HEMOGLOBIN 27 pg (25-34); MEAN CORPUSCULAR HGB CONC 31 g/dL (32-36); MEAN CORPUSCULAR VOLUME 87 fL (80-99); MONOCYTES # (AUTO) 0.5 10^3/uL (0.0-1.0); MONOCYTES % (AUTO) 5 % (0-12); NEUTROPHILS # (AUTO) 9.7 10^3/uL (1.8-7.8); NEUTROPHILS % (AUTO) 86 % (42-75); PLATELET COUNT 239 10^3/uL (130-400); WHITE BLOOD COUNT 11.4 10^3/uL (4.3-11.0)
[2021-11-08 05:40] LABS: ALBUMIN 2.4 GM/DL (3.2-4.5)
[2021-11-08 05:41] LABS: POTASSIUM 3.5 MMOL/L (3.6-5.0)
[2021-11-08 05:42] LABS: CALCIUM 6.9 MG/DL (8.5-10.1)
[2021-11-08 05:43] LABS: TOTAL PROTEIN 6.1 GM/DL (6.4-8.2)
[2021-11-08 05:45] LABS: BILIRUBIN,TOTAL 0.5 MG/DL (0.1-1.0)
[2021-11-08 05:46] LABS: PHOSPHORUS 2.9 MG/DL (2.3-4.7)
[2021-11-08 05:47] LABS: CREATININE SERUM 1.08 MG/DL (0.60-1.30)
[2021-11-08] MEDS: inSUlin ASPART (NovoLOG) 1 UNIT/0.01 ML (CHARGE PER UNIT) SC SCH ×7 (05:51→21:47)
[2021-11-08] MEDS: HYDROCORTISONE 100 MG/2 ML (Solu-CORTEF) VIAL IV SCH ×3 (06:03→21:50)
[2021-11-08] MEDS: HYDROcodone/APAP 7.5 MG/325 MG (LORTAB, LORCET PLUS) TABLET PO PRN (06:04)
[2021-11-08] MEDS: FLUCONAZOLE 200 MG/100 ML 50 ML, EMPTY IV BAG (PVC) 1 EA IV SCH ×2 (08:41)
[2021-11-08] MEDS: PANTOPRAZOLE 40 MG (PROTONIX) VIAL IV SCH (08:42)
[2021-11-08] MEDS: polyethylene glycoL POWDER 17 GM (MIRALAX) PACK PO SCH ×2 (08:42→21:45)
[2021-11-08] MEDS: CLOPIDOGREL 75 MG (PLAVIX) TABLET PO SCH (08:43)
[2021-11-08] MEDS: GABAPENTIN 400 MG (NEURONTIN) CAP PO SCH ×3 (08:43→21:48)
[2021-11-08] MEDS: predniSONE 5 MG TAB PO SCH (08:43)
[2021-11-08] MEDS: CALCIUM CARBONATE 600 MG (CALCARB) TAB PO SCH (08:44)
[2021-11-08] MEDS: LEVOTHYROXINE 88 MCG (LEVOTHORID) TAB PO SCH (08:44)
[2021-11-08] MEDS: ASPIRIN E.C. 81 MG (ECOTRIN) TAB PO SCH (08:44)
[2021-11-08] MEDS: ENOXAPARIN 40 MG/0.4 ML (LOVENOX) SYR SC SCH (08:45)
[2021-11-08] MEDS: RT--FLUTICASONE/SALMETEROL 232-14 (AIRDUO RespiCLICK) IH SCH ×2 (10:16→21:22)
--- NOTE | 2021-11-08 10:24 | Physical Therapy Daily Note ---
PT Daily Note-Current Subjective Patient in recliner pre tx, agrees to PT, has no complaints of pain at rest. Appearance Patient in recliner post tx with nurse call, phone, tray, all needs met. Mental Status Patient Orientation: Person, Place, Situation Attachments: Parker Catheter Transfers SCALE: Activities may be completed with or without assistive devices. 3-Pcretbszkw-nmuzunv completes the activity by him/herself with no assistance from a helper. 5-Set-up or Clean-up Assistance-helper sets up or cleans up; patient completes activity. [place] assists only prior to or following the activity. 4-Supervision or Touching Assistance-helper provides verbal cues and/or touching/steadying and/or contact guard assistance as patient completes a ctivity. Assistance may be provided throughout the activity or intermittently. 3-Partial/Moderate Assistance-helper does LESS THAN HALF the effort. [place] lifts, holds or supports trunk or limbs, but provides less than half the effort. 2-Substantial/Maximal Assistance-helper does MORE THAN HALF the effort. [place] lifts or holds trunk or limbs and provides more than half the effort. 2-Hkvakaqga-ylhjtr does ALL the effort. Patient does none of the effort to complete the activity. Or, the assistance of 2 or more helpers is required for the patient to complete the activity. If activity was not attempted, code reason: 7-Patient Refused. 9-Not Applicable-not attempted and the patient did not perform the activity before the current illness, exacerbation or injury. 10-Not Attempted due to Environmental Limitations-(lack of equipment, weather restraints, etc.). 88-Not Attempted due to Medical Conditions or Safety Concerns. Sit to Stand (QC): 2 Patient attempts to stand twice, max assist and is not able to stand completely either time. Weight Bearing Right Lower Extremity: Right Weight Bearing/Tolerated Left Lower Extremity: Left Weight Bearing/Tolerated Exercises Seated Therapy Exercises: Ankle pumps, Long arc quads Seated Reps: 20 Treatments attempted standing, LE strengthening Assessment Current Status: Poor Progress increasing weakness PT Graduate Advisor Goals Detention Goals PT Graduate Advisor Goals Time Frame: Nov 18, 2021 Roll Left & Right (QC): 4 Sit to Lying (QC): 4 Lying-Sitting on Side/Bed(QC): 4 Sit to Stand (QC): 4 Chair/Rzk-of-Zhgei Xfer(QC): 4 Toilet Transfer (QC): 4 Car Transfer (QC): 4 Does the Patient Walk: Yes Walk 10 feet (QC): 4 1 Step (curb) (QC): 4 4 Steps (QC): 4 PT Plan Problem List Problem List: Activity Tolerance, Functional Strength, Safety, Balance, Gait, Transfer, Bed Mobility, ROM Treatment/Plan Treatment Plan: Continue Plan of Care Treatment Plan: Bed Mobility, Functional Activity Virgen, Functional Strength, Gait, Safety, Therapeutic Exercise, Transfers Treatment Duration: Nov 18, 2021 Frequency: 6 times per week Estimated Hrs Per Day: .5 hour per day Patient and/or Family Agrees t: Yes Safety Risks/Education Patient Education: Correct Positioning, Safety Issues Teaching Recipient: Patient Teaching Methods: Demonstration, Discussion Response to Teaching: Reinforcement Needed Time/GCodes Time In: 0952 Time Out: 1002 Total Billed Treatment Time: 10 Total Billed Treatment 1 visit EX 10' ELVIS PEREZ PT Nov 08, 2021 10:24
--- NOTE | 2021-11-08 11:01 | Progress Note - Cardiology ---
Cardiology SOAP Progress Note Subjective: Sitting up in recliner at the bedside C/O LE swelling No c/o SOB, CP or palpitations States she is feeling better Objective: I&O/Vital Signs 11/08/21 11/09/21 11/09/21 11/09/21 23:38 02:12 03:32 08:00 Temp 36.5 36.4 36.2 Pulse 88 93 91 Resp 20 20 B/P (MAP) 119/71 (87) 110/71 (84) 137/74 (95) Pulse Ox 92 93 92 96 O2 Delivery Nasal Cannula Nasal Cannula Nasal Cannula Nasal Cannula O2 Flow Rate 2.00 2.00 2.00 2.00 11/09/21 00:00 Intake Total 1680 ml Output Total 1100 ml Balance 580 ml Constitutional: AAO x 3, well-developed, well-nourished Respiratory: No accessory muscle use, No respiratory distress; chest expansion is symmetric, chest is bilaterally symmetric, rhonchi (scattered), other (good a ir entry) Cardiovascular: regular rate-rhythm; No JVD; S1 and S2 Gastrointestional: other (post op abdomen) Extremities: other (2+ edema of the legs on 11/07/21) Neurologic/Psychiatric: grossly intact (moves all extremities) Skin: No rash on exposed areas, No ulcerations on exposed areas Results/Procedures: Labs Laboratory Tests 11/08/21 10:50: Glucometer 96 11/08/21 20:39: Glucometer 119H 11/09/21 05:00: White Blood Count 10.6, Red Blood Count 3.00L, Hemoglobin 8.2L, Hematocrit 26L, Mean Corpuscular Volume 86, Mean Corpuscular Hemoglobin 27, Mean Corpuscular Hemoglobin Concent 32, Red Cell Distribution Width 18.0H, Platelet Count 252, Mean Platelet Volume 10.4, Immature Granulocyte % (Auto) 4, Neutrophils (%) (Auto) 83H, Lymphocytes (%) (Auto) 6L, Monocytes (%) (Auto) 6, Eosinophils (%) (Auto) 0, Basophils (%) (Auto) 0, Neutrophils # (Auto) 8.8H, Lymphocytes # (Auto) 0.6L, Monocytes # (Auto) 0.7, Eosinophils # (Auto) 0.0, Basophils # (Auto) 0.0, Immature Granulocyte # (Auto) 0.5H, Neutrophils % (Manual) 89, Lymphocytes % (Manual) 6, Monocytes % (Manual) 3, Myelocytes % 1, Band Neutrophils 1, Hypochromasia SLIGHT, Microcytosis SLIGHT, Sodium Level 135, Potassium Level 3.8, Chloride Level 104, Carbon Dioxide Level 19L, Anion Gap 12, Blood Urea Nitrogen 16, Creatinine 1.00, Estimat Glomerular Filtration Rate 55, BUN/Creatinine Ratio 16, Glucose Level 139H, Calcium Level 7.2L, Corrected Calcium 8.4L, Phosphorus Level 3.3, Magnesium Level 1.8, Total Bilirubin 0.5, Aspartate Amino Transf (AST/SGOT) 28, Alanine Aminotransferase (ALT/SGPT) 12, Alkaline Phosphatase 140H, Total Protein 6.1L, Albumin 2.5L 11/09/21 05:06: Glucometer 135H Microbiology 11/05/21 MRSA Screen - Final, Complete MRSA not isolated 11/03/21 Urine Culture - Final, Complete Yeast species Klebsiella pneumoniae 11/03/21 Blood Culture - Final, Complete No growth A/P: Assessment: Volume overload Septic shock, resolved Ileus - seen on CT of 11-04-21 GI - s/p exploratory laparotomy, right hemicolectomy, ileal resection(100cm) with ileocolonic anastamosis on 10/22/21 CAD - reports follows with cardiology at [facility] in [place] and has had cardiac stent placed in June 22, [address] Larry Lord - reported to be a [place] 3.25mm x 15 mm stent - location unknown Anemia of undetermined etiology - management per medical services Acute on chronic exacerbation of COPD Echo on 10/22/21: LVEF 55-60%, dilated RA DM 2 HTN - controlled HLD H/o frequent falls H/o frequent UTI's Plan: Give IV Lasix today d/t vol overload Consider blood transfusion if H/H drops any more Monitor lab closely BERLIN GUTHRIE Nov 08, 2021 11:01
--- NOTE | 2021-11-08 11:12 | Progress Note - Hospitalist ---
DEREK GUTIERREZ MED STUDENT 11/08/21 1112: Subjective HPI/CC On Admission Date Seen by Provider: Nov 08, 2021 Time Seen by Provider: 08:15 Subjective/Events-last exam Mrs. Quiroz is awake this morning and sitting up in her chair. She states that he is feeling okay and not having too much pain. States that she wants to go home and that therapy is going well. She is probably not medically ready for D/C today. She will get a PT eval. Review of Systems General: No Chills, No Night Sweats HEENT: No Head Aches, No Dysphasia Pulmonary: No Dyspnea, No Cough Cardiovascular: No: Chest Pain, Palpitations, Edema Gastrointestinal: No: Nausea, Vomiting, Abdominal Pain, Diarrhea, Constipation, Melena Genitourinary: No Dysuria, No Frequency, No Hematuria Musculoskeletal: No: leg pain, foot pain Focused Exam Time of Focused Exam: 14:00 Objective Exam Vital Signs Vital Signs Date Time Temp Pulse Resp B/P (MAP) Pulse Ox O2 Delivery O2 Flow Rate FiO2 11/08/21 09:00 Room Air 11/08/21 07:48 35.1 89 20 143/67 (92) 97 11/08/21 04:00 2.00 11/06/21 08:31 100 Capillary Refill : Less Than 3 Seconds General Appearance: No Apparent Distress, Chronically ill, Obese HEENT: Moist Mucous Membranes Neck: Supple Respiratory: Chest Non Tender, Lungs Clear, Normal Breath Sounds, No Accessory Muscle Use, No Respiratory Distress Cardiovascular: Regular Rate, Rhythm, No Edema, No Murmur, Normal Peripheral Pulses Gastrointestinal: Normal Bowel Sounds, No Organomegaly, No Pulsatile Mass, Non Tender, Soft Rectal: Deferred Extremity: Normal Capillary Refill, Normal Inspection, Non Tender, No Calf Tenderness Neurologic/Psychiatric: Alert, Oriented x3, Normal Mood/Affect Skin: Normal Color, Warm/Dry Results/Procedures Lab Laboratory Tests 11/08/21 05:00 Patient resulted labs reviewed. Assessment/Plan Assessment and Plan Assess & Plan/Chief Complaint Sepsis UTI RUEL -Pt states she feel she is improving -White count down to 11.4 -On ABX -Kidney function improved BUN:15 Creat:0.59 Hypokalemia -3.5 -Supplementing as needed -Continue morning labs Hyponatremia -133 -Continue to monitor Hypotension -Resolved, 143/77 this morning -Home HTN meds Anemia -7.8 this morning -Continue to monitor -My need transfusion if drops under 7 Ileus -Resolved Hx of CHF, CAD, DMII -Home meds -Insulin, montor sugars Supervisory-Addendum Brief Verification & Attestation Participated in pt care: history, physical Personally performed: exam Care discussed with: Medical Student Procedures: n/a n/a KATYA JARQUIN DO 11/09/21 0535: Subjective Subjective/Events-last exam Pt doing a lot better PT and OT maintained May be an inpatient rehab candidate WBC 11.4 and Hgb 7.8 Meropenem and Diflucan maintained Daughter will live with her and the patients since he just had a hip fracture Review of Systems General: Fatigue, Malaise Objective Exam General Appearance: No Apparent Distress, WD/WN, Chronically ill, Obese Respiratory: Lungs Clear Cardiovascular: Regular Rate, Rhythm Neurologic/Psychiatric: Alert, Oriented x3, No Motor/Sensory Deficits, Normal Mood/Affect Assessment/Plan Assessment and Plan Assess & Plan/Chief Complaint Assessment: Septic shock Pneumonia UTI 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 Supervisory-Addendum Brief Verification & Attestation Participated in pt care: history, MDM, physical Personally performed: exam, history, MDM, supervision of care Care discussed with: Medical Student Procedures: n/a Results interpretation: Verified all documentation Verification and Attestation of Medical Student E/M Service A medical student performed and documented this service in my presence. I reviewed and verified all information documented by the medical student and made modifications to such information, when appropriate. I personally performed the physical exam and medical decision making. Katya Jarquin, Nov 09, 2021,05:35 DEREK GUTIERREZ MED STUDENT Nov 08, 2021 11:12 KATYA JARQUIN DO Nov 09, 2021 05:35
[2021-11-08] MEDS ORDERED: KCL 10 MEQ TAB (MICRO K) PO ONE (11:15)
[2021-11-08] MEDS ORDERED: FUROSEMIDE 40 MG/4 ML INJ (LASIX) IVP ONE (11:15)
--- NOTE | 2021-11-08 13:30 | Occupational Ther Daily Note ---
OT Current Status-Daily Note Subjective Pt lying in bed, alert. Pt agrees to therapy. No c/o pain, c/o of fatigue and weakness. Pt states that she wants to go home. Mental Status/Objective Patient Orientation: Person, Place, Time, Situation Attachments: IV ADL-Treatment Therapy Code Descriptions/Definitions Functional [place] Measure: 0=Not Assessed/NA 4=Minimal Assistance 1=Total Assistance 5=Supervision or Setup 2=Maximal Assistance 6=Modified [place] 3=Moderate Assistance 7=Complete IndependenceSCALE: Activities may be completed with or without assistive devices. 6-Cyeihigoxi-lujghgc completes the activity by him/herself with no assistance from a helper. 5-Set-up or Clean-up Assistance-helper sets up or cleans up; patient completes activity. [place] assists only prior to or following the activity. 4-Supervision or Touching Assistance-helper provides verbal cues and/or touching/steadying and/or contact guard assistance as patient completes activity. Assistance may be provided throughout the activity or intermittently. 3-Partial/Moderate Assistance-helper does LESS THAN HALF the effort. [place] lifts, holds or supports trunk or limbs, but provides less than half the effort. 2-Substantial/Maximal Assistance-helper does MORE THAN HALF the effort. [place] lifts or holds trunk or limbs and provides more than half the effort. 2-Xwiaiqjry-ekzrhg does ALL the effort. Patient does none of the effort to complete the activity. Or, the assistance of 2 or more helpers is required for the patient to complete the activity. If activity was not attempted, code reason: 7-Patient Refused. 9-Not Applicable-not attempted and the patient did not perform the activity before the current illness, exacerbation or injury. 10-Not Attempted due to Environmental Limitations-(lack of equipment, weather restraints, etc.). 88-Not Attempted due to Medical Conditions or Safety Concerns. Eating (QC): 6 Other Treatment Pt educated on the benefits of exercise. Pt completed 5 B UE exercises, requires skilled instruction for correct technique. Exercises completed against gravity, tolerated only 1 set 10 reps. After session, pt lying in bed with call light/phone in reach. All needs met in room. OT Key Account Coordinator Goals Key Account Coordinator Goals Time Frame: Nov 26, 2021 Eating (QC): 5 Oral Hygiene (QC): 5 Toileting Hygiene (QC): 3 Shower/Bathe Self (QC): 3 Upper Body Dressing (QC): 4 Lower Body Dressing (QC): 3 On/Off Footwear (QC): 3 Additional Goals: 1-Demonstrate ADL Tasks, 2-Verbalize Understanding, 3- ImproveStrength/Virgen 1=Demonstrate adherence to instructed precautions during ADL tasks. 2=Patient will verbalize/demonstrate understanding of assistive devices/modifications for ADL. 3=Patient will improve strength/tolerance for activity to enable patient to perform ADL's. OT Education/Plan Problem List/Assessment Assessment: Decreased Activ Tolerance, Decreased UE Strength, Dependent Transfers, Impaired Bed Mobility, Impaired Self-Care Skills Discharge Recommendations Plan/Recommendations: Continue POC Treatment Plan/Plan of Care Patient would benefit from OT for education, treatment and training to promote independence in ADL's, mobility, safety and/or upper extremity function for ADL's. Plan of Care: ADL Retraining, Functional Mobility, UE Funct Exercise/Act Treatment Duration: Nov 26, 2021 Frequency: 3 times per week (3-5 times per week) Estimated Hrs Per Day: .25 hour per day Rehab Potential: Fair Time/GCodes Start Time: 13:06 Stop Time: 13:20 Total Time Billed (hr/min): 14 Billed Treatment Time 1 visit-EX 1 (14 min) ANDREW CHEEMA Nov 08, 2021 13:29
[2021-11-08] MEDS ORDERED: KCL 20 MEQ TAB (K-DUR) PO ONE (15:00)
--- NOTE | 2021-11-08 17:53 | Progress Note - Cardiology ---
Cardiology SOAP Progress Note Subjective: No cp or palp or syncope No n/v/d Leg swelling present Gen malaise and weakness Objective: I&O/Vital Signs 11/08/21 11/08/21 11/08/21 11/08/21 07:48 09:00 11:39 15:32 Temp 35.1 34.9 35.3 Pulse 89 82 86 Resp 20 18 23 B/P (MAP) 143/67 (92) 144/62 (89) 114/57 (76) Pulse Ox 97 95 92 O2 Delivery Nasal Cannula Room Air Nasal Cannula Nasal Cannula O2 Flow Rate 2.00 2.00 11/08/21 00:00 Intake Total 1045 ml Output Total 500 ml Balance 545 ml Constitutional: AAO x 3, well-developed, well-nourished Respiratory: No accessory muscle use, No respiratory distress; chest expansion is symmetric, chest is bilaterally symmetric, rhonchi (scattered), other (good air entry) Cardiovascular: regular rate-rhythm; No JVD; S1 and S2 Gastrointestional: other (post op abdomen) Extremities: other (2+ edema of the legs on 11/07/21) Neurologic/Psychiatric: grossly intact (moves all extremities) Skin: No rash on exposed areas, No ulcerations on exposed areas Results/Procedures: Labs Laboratory Tests 11/07/21 20:52: Glucometer 83 11/08/21 05:00: White Blood Count 11.4H, Red Blood Count 2.88L, Hemoglobin 7.8L, Hematocrit 25L, Mean Corpuscular Volume 87, Mean Corpuscular Hemoglobin 27, Mean Corpuscular Hemoglobin Concent 31L, Red Cell Distribution Width 18.1H, Platelet Count 239, Mean Platelet Volume 10.0, Immature Granulocyte % (Auto) 3, Neutrophils (%) (Auto) 86H, Lymphocytes (%) (Auto) 7L, Monocytes (%) (Auto) 5, Eosinophils (%) (Auto) 0, Basophils (%) (Auto) 0, Neutrophils # (Auto) 9.7H, Lymphocytes # (Auto) 0.8L, Monocytes # (Auto) 0.5, Eosinophils # (Auto) 0.0, Basophils # (Auto) 0.0, Immature Granulocyte # (Auto) 0.3H, Sodium Level 133L, Potassium Level 3.5L, Chloride Level 104, Carbon Dioxide Level 18L, Anion Gap 11, Blood Urea Nitrogen 15, Creatinine 1.08, Estimat Glomerular Filtration Rate 50, BUN/Creatinine Ratio 14, Glucose Level 104, Calcium Level 6.9L, Corrected Calcium 8.2L, Phosphorus Level 2.9, Magnesium Level 2.0, Total Bilirubin 0.5, Aspartate Amino Transf (AST/SGOT) 27, Alanine Aminotransferase (ALT/SGPT) 11, Alkaline Phosphatase 121, Total Protein 6.1L, Albumin 2.4L 11/08/21 10:50: Glucometer 96 Microbiology 11/05/21 MRSA Screen - Final, Complete MRSA not isolated 11/03/21 Urine Culture - Final, Complete Yeast species Klebsiella pneumoniae 11/03/21 Blood Culture - Final, Complete No growth Laboratory Tests 11/07/21 02:35 11/08/21 05:00 A/P: Assessment: Volume overload Septic shock, resolved Ileus - seen on CT of 11-04-21 GI - s/p exploratory laparotomy, right hemicolectomy, ileal resection(100cm) with ileocolonic anastamosis on 10/22/21 CAD - reports follows with cardiology at [facility] in [place] and has had cardiac stent placed in June 22, [address] Larry Lord - reported to be a [place] 3.25mm x 15 mm stent - location unknown Anemia of undetermined etiology - management per medical services Acute on chronic exacerbation of COPD Echo on 10/22/21: LVEF 55-60%, dilated RA DM 2 HTN - controlled HLD H/o frequent falls H/o frequent UTI's Plan: Give IV Lasix today d/t vol overload Consider blood transfusion if H/H drops any more Monitor lab closely MIRTA AL MD FACP FAC CCDS Nov 08, 2021 17:53
[2021-11-08] MEDS ORDERED: ALPRAZolam 0.5 MG (XANAX) TAB PO PRN (20:30)
[2021-11-08] MEDS: rOPINIRole 1 MG (REQUIP) TABLET PO SCH (21:46)
[2021-11-08] MEDS: AMITRIPTYLINE 25 MG (ELAVIL) TAB PO SCH (21:46)
[2021-11-08] MEDS: DICYCLOMINE 10 MG (BENTYL) CAP PO SCH (22:33)
[2021-11-09] VITALS (7 sets, daily range): BP systolic 106–145; BP diastolic 64–76
[2021-11-09] MEDS: RT-ALBUTEROL/IPRATROPIUM 3 ML (DUONEB) VIAL INH SCH ×4 (02:12→21:44)
[2021-11-09] MEDS: inSUlin ASPART (NovoLOG) 1 UNIT/0.01 ML (CHARGE PER UNIT) SC SCH ×7 (05:18→20:23)
[2021-11-09 05:31] LABS: BASOPHILS % (AUTO) 0 % (0-10); EOSINOPHILS % (AUTO) 0 % (0-10); HEMATOCRIT 26 % (35-52); HEMOGLOBIN 8.2 g/dL (11.5-16.0); LYMPHOCYTES # (AUTO) 0.6 10^3/uL (1.0-4.0); LYMPHOCYTES % (AUTO) 6 % (12-44); MEAN CORPUSCULAR HEMOGLOBIN 27 pg (25-34); MEAN CORPUSCULAR HGB CONC 32 g/dL (32-36); MEAN CORPUSCULAR VOLUME 86 fL (80-99); MEAN PLATELET VOLUME 10.4 fL (9.0-12.2); MONOCYTES # (AUTO) 0.7 10^3/uL (0.0-1.0); MONOCYTES % (AUTO) 6 % (0-12); NEUTROPHILS # (AUTO) 8.8 10^3/uL (1.8-7.8); NEUTROPHILS % (AUTO) 83 % (42-75); PLATELET COUNT 252 10^3/uL (130-400); WHITE BLOOD COUNT 10.6 10^3/uL (4.3-11.0)
[2021-11-09 05:42] LABS: ALBUMIN 2.5 GM/DL (3.2-4.5); POTASSIUM 3.8 MMOL/L (3.6-5.0)
[2021-11-09 05:43] LABS: CALCIUM 7.2 MG/DL (8.5-10.1)
[2021-11-09 05:45] LABS: TOTAL PROTEIN 6.1 GM/DL (6.4-8.2)
[2021-11-09 05:46] LABS: BILIRUBIN,TOTAL 0.5 MG/DL (0.1-1.0)
[2021-11-09 05:48] LABS: PHOSPHORUS 3.3 MG/DL (2.3-4.7)
[2021-11-09 05:51] LABS: MAGNESIUM 1.8 MG/DL (1.6-2.4)
[2021-11-09] MEDS: DICYCLOMINE 10 MG (BENTYL) CAP PO SCH ×4 (06:03→21:27)
[2021-11-09] MEDS: HYDROCORTISONE 100 MG/2 ML (Solu-CORTEF) VIAL IV SCH ×3 (06:05→21:29)
[2021-11-09 06:15] LABS: BAND NEUTROPHILS 1 %; LYMPHOCYTES % (MANUAL) 6 %; MONOCYTES % (MANUAL) 3 %; MYELOCYTES % 1 %; NEUTROPHILS % (MANUAL) 89 %
[2021-11-09 06:16] LABS: HYPOCHROMASIA SLIGHT; MICROCYTOSIS SLIGHT
[2021-11-09] MEDS: LEVOTHYROXINE 88 MCG (LEVOTHORID) TAB PO SCH (08:47)
[2021-11-09] MEDS: ENOXAPARIN 40 MG/0.4 ML (LOVENOX) SYR SC SCH (08:47)
[2021-11-09] MEDS: predniSONE 5 MG TAB PO SCH (08:47)
[2021-11-09] MEDS: PANTOPRAZOLE 40 MG (PROTONIX) TAB PO SCH (08:48)
[2021-11-09] MEDS: CALCIUM CARBONATE 600 MG (CALCARB) TAB PO SCH (08:48)
[2021-11-09] MEDS: ASPIRIN E.C. 81 MG (ECOTRIN) TAB PO SCH (08:48)
[2021-11-09] MEDS: GABAPENTIN 400 MG (NEURONTIN) CAP PO SCH ×3 (08:48→21:27)
[2021-11-09] MEDS: PANTOPRAZOLE 40 MG (PROTONIX) VIAL IV SCH (08:48)
[2021-11-09] MEDS: CLOPIDOGREL 75 MG (PLAVIX) TABLET PO SCH (08:48)
[2021-11-09] MEDS: OMEGA 3 (FISH OIL) 1000 MG CAP PO SCH (08:48)
[2021-11-09] MEDS: TORSEMIDE 20 MG (DEMADEX) TAB PO SCH (08:48)
[2021-11-09] MEDS: polyethylene glycoL POWDER 17 GM (MIRALAX) PACK PO SCH ×2 (08:49→21:29)
--- NOTE | 2021-11-09 08:56 | Physical Therapy Daily Note ---
PT Daily Note-Current Subjective Patient in bed pre tx, agrees to PT, voices no complaints of pain, patient states she needs to use the commode, nurse aide will assist. Appearance Patient in recliner post tx with nurse aide in room to finish with some ADL's Mental Status Patient Orientation: Person, Place, Situation Attachments: Oxygen Transfers SCALE: Activities may be completed with or without assistive devices. 5-Qkpncickab-yrswejt completes the activity by him/herself with no assistance from a helper. 5-Set-up or Clean-up Assistance-helper sets up or cleans up; patient completes activity. [place] assists only prior to or following the activity. 4-Supervision or Touching Assistance-helper provides verbal cues and/or touching/steadying and/or contact guard assistance as patient completes activity. Assistance may be provided throughout the activity or intermittently. 3-Partial/Moderate Assistance-helper does LESS THAN HALF the effort. [place] lifts, holds or supports trunk or limbs, but provides less than half the effort. 2-Substantial/Maximal Assistance-helper does MORE THAN HALF the effort. [place] lifts or holds trunk or limbs and provides more than half the effort. 3-Kxtyttihp-vltwtx does ALL the effort. Patient does none of the effort to complete the activity. Or, the assistance of 2 or more helpers is required for the patient to complete the activity. If activity was not attempted, code reason: 7-Patient Refused. 9-Not Applicable-not attempted and the patient did not perform the activity before the current illness, exacerbation or injury. 10-Not Attempted due to Environmental Limitations-(lack of equipment, weather restraints, etc.). 88-Not Attempted due to Medical Conditions or Safety Concerns. Roll Left & Right (QC): 3 Lying to Sitting/Side of Bed(Q: 3 Sit to Stand (QC): 2 Chair/Bst-fs-Sfnmy Xfer(QC): 2 Patient stands with max assist and transfers to the commode, she has to stand again to reposition, when done she stands so nurse aide can clean her and then the commode is removed and recliner placed behind her and she sits. She stands a total of 3 times and the last time she stands for about 40 seconds. Weight Bearing Right Lower Extremity: Right Weight Bearing/Tolerated Left Lower Extremity: Left Weight Bearing/Tolerated Treatments bed mobility and transfers, standing Assessment Current Status: Poor Progress Patient is very anxious and afraid of falling. She needs a lot of encouragement to participate. PT Business Control Manager Goals Mcfp Goals PT Business Control Manager Goals Time Frame: Nov 18, 2021 Roll Left & Right (QC): 4 Sit to Lying (QC): 4 Lying-Sitting on Side/Bed(QC): 4 Sit to Stand (QC): 4 Chair/Hha-km-Hwfpt Xfer(QC): 4 Toilet Transfer (QC): 4 Car Transfer (QC): 4 Does the Patient Walk: Yes Walk 10 feet (QC): 4 1 Step (curb) (QC): 4 4 Steps (QC): 4 PT Plan Problem List Problem List: Activity Tolerance, Functional Strength, Safety, Balance, Gait, Transfer, Bed Mobility, ROM Treatment/Plan Treatment Plan: Continue Plan of Care Treatment Plan: Bed Mobility, Functional Activity Virgen, Functional Strength, Gait, Safety, Therapeutic Exercise, Transfers Treatment Duration: Nov 18, 2021 Frequency: 6 times per week Estimated Hrs Per Day: .5 hour per day Patient and/or Family Agrees t: Yes Safety Risks/Education Patient Education: Transfer Techniques, Correct Positioning, Safety Issues Teaching Recipient: Patient Teaching Methods: Demonstration, Discussion Response to Teaching: Reinforcement Needed Time/GCodes Time In: 0815 Time Out: 08 Total Billed Treatment Time: 20 Total Billed Treatment 1 visit FA ELVIS PEREZ PT Nov 09, 2021 08:56
[2021-11-09] MEDS ORDERED: CLOPIDOGREL 75 MG (PLAVIX) TABLET PO SCH (09:00)
[2021-11-09] MEDS: FLUCONAZOLE 200 MG/100 ML 50 ML, EMPTY IV BAG (PVC) 1 EA IV SCH ×2 (09:05)
[2021-11-09] MEDS ORDERED: KCL 20 MEQ TAB (K-DUR) PO NR (09:30)
[2021-11-09] MEDS ORDERED: FUROSEMIDE 40 MG/4 ML INJ (LASIX) IVP NR (09:30)
--- NOTE | 2021-11-09 10:01 | Progress Note - Cardiology ---
Cardiology SOAP Progress Note Subjective: Sitting up in recliner at the bedside C/O LE swelling No c/o CP or SOB Objective: I&O/Vital Signs 11/08/21 11/09/21 11/09/21 11/09/21 23:38 02:12 03:32 08:00 Temp 36.5 36.4 36.2 Pulse 88 93 91 Resp 20 20 20 B/P (MAP) 119/71 (87) 110/71 (84) 137/74 (95) Pulse Ox 92 93 92 96 O2 Delivery Nasal Cannula Nasal Cannula Nasal Cannula Nasal Cannula O2 Flow Rate 2.00 2.00 2.00 2.00 11/09/21 00:00 Intake Total 1680 ml Output Total 1100 ml Balance 580 ml Constitutional: AAO x 3, well-developed, well-nourished Respiratory: No accessory muscle use, No respiratory distress; chest expansion is symmetric, chest is bilaterally symmetric, rhonchi (scattered), other (good air entry) Cardiovascular: regular rate-rhythm; No JVD; S1 and S2 Gastrointestional: other (post op abdomen) Extremities: other (2+ edema of the legs on 11/07/21) Neurologic/Psychiatric: grossly intact (moves all extremities) Skin: No rash on exposed areas, No ulcerations on exposed areas Results/Procedures: Labs Laboratory Tests 11/08/21 10:50: Glucometer 96 11/08/21 20:39: Glucometer 119H 11/09/21 05:00: White Blood Count 10.6, Red Blood Count 3.00L, Hemoglobin 8.2L, Hematocrit 26L, Mean Corpuscular Volume 86, Mean Corpuscular Hemoglobin 27, Mean Corpuscular Hemoglobin Concent 32, Red Cell Distribution Width 18.0H, Platelet Count 252, Mean Platelet Volume 10.4, Immature Granulocyte % (Auto) 4, Neutrophils (%) (Auto) 83H, Lymphocytes (%) (Auto) 6L, Monocytes (%) (Auto) 6, Eosinophils (%) (Auto) 0, Basophils (%) (Auto) 0, Neutrophils # (Auto) 8.8H, Lymphocytes # (Auto) 0.6L, Monocytes # (Auto) 0.7, Eosinophils # (Auto) 0.0, Basophils # (Auto) 0.0, Immature Granulocyte # (Auto) 0.5H, Neutrophils % (Manual) 89, Lymphocytes % (Manual) 6, Monocytes % (Manual) 3, Myelocytes % 1, Band Neutrophils 1, Hypochromasia SLIGHT, Microcytosis SLIGHT, Sodium Level 135, Potassium Level 3.8, Chloride Level 104, Carbon Dioxide Level 19L, Anion Gap 12, Blood Urea Nitrogen 16, Creatinine 1.00, Estimat Glomerular Filtration Rate 55, BUN/Creatinine Ratio 16, Glucose Level 139H, Calcium Level 7.2L, Corrected Calcium 8.4L, Phosphorus Level 3.3, Magnesium Level 1.8, Total Bilirubin 0.5, Aspartate Amino Transf (AST/SGOT) 28, Alanine Aminotransferase (ALT/SGPT) 12, Alkaline Phosphatase 140H, Total Protein 6.1L, Albumin 2.5L 11/09/21 05:06: Glucometer 135H Microbiology 11/05/21 MRSA Screen - Final, Complete MRSA not isolated 11/03/21 Urine Culture - Final, Complete Yeast species Klebsiella pneumoniae 11/03/21 Blood Culture - Final, Complete No growth Laboratory Tests 11/08/21 05:00 11/09/21 05:00 A/P: Assessment: Volume overload Septic shock, resolved Ileus - seen on CT of 11-04-21 GI - s/p exploratory laparotomy, right hemicolectomy, ileal resection(100cm) with ileocolonic anastamosis on 10/22/21 CAD - reports follows with cardiology at [facility] in [place] and has had cardiac stent placed in June 22, [address] Larry Lord - reported to be a [place] 3.25mm x 15 mm stent - location unknown Anemia of undetermined etiology - management per medical services Acute on chronic exacerbation of COPD Echo on 10/22/21: LVEF 55-60%, dilated RA DM 2 HTN - controlled HLD H/o frequent falls H/o frequent UTI's Plan: Give IV Lasix today d/t vol overload Continue to monitor H/H Monitor lab closely BERLIN GUTHRIE Nov 09, 2021 10:01
--- NOTE | 2021-11-09 10:11 | Occupational Ther Daily Note ---
OT Current Status-Daily Note Subjective Pt alert, lying sitting in recliner. Pt agrees to therapy. Pt c/o pain though does not rate. Noted bloody area on L heel, reported to nrsg and placed band aide Mental Status/Objective Patient Orientation: Person, Place, Time, Situation Attachments: IV, Oxygen (2L) ADL-Treatment Nrsg completed toileting and sponge bath. Per nrsg, pt required 2 person for to ileting hygiene and max A for sponge bath. Pt agreed to change socks. Pt stated that she did not where socks at home but did wash and don/doff shoes by crossing ankle over knee (figure 4 tech). Pt required assistance to lift each leg up to complete figure 4 tech then was able to hold position by self. Pt able to doff socks and wash feet with this technique though assist to don both socks required, max A. Pt's daughter brought briefs during OT session. Pt required assistance to thread feet into brief, declined to attempt to try to complete by self. Assist to pull up legs then assist x2 to stand and hike pants over hips. Pt did stand for short period of time using FWW and assist x2. After session, pt sitting in recliner with call light/phone in reach. Nrsg present in room. Therapy Code Descriptions/Definitions Functional [place] Measure: 0=Not Assessed/NA 4=Minimal Assistance 1=Total Assistance 5=Supervision or Setup 2=Maximal Assistance 6=Modified [place] 3=Moderate Assistance 7=Complete IndependenceSCALE: Activities may be completed with or without assistive devices. 7-Vntriveqst-dpbwbij completes the activity by him/herself with no assistance from a helper. 5-Set-up or Clean-up Assistance-helper sets up or cleans up; patient completes activity. [place] assists only prior to or following the activity. 4-Supervision or Touching Assistance-helper provides verbal cues and/or touching/steadying and/or contact guard assistance as patient completes activity. Assistance may be provided throughout the activity or intermittently. 3-Partial/Moderate Assistance-helper does LESS THAN HALF the effort. [place] lifts, holds or supports trunk or limbs, but provides less than half the effort. 2-Substantial/Maximal Assistance-helper does MORE THAN HALF the effort. [place] lifts or holds trunk or limbs and provides more than half the effort. 6-Vkgimqrtg-rvqega does ALL the effort. Patient does none of the effort to complete the activity. Or, the assistance of 2 or more helpers is required for the patient to complete the activity. If activity was not attempted, code reason: 7-Patient Refused. 9-Not Applicable-not attempted and the patient did not perform the activity before the current illness, exacerbation or injury. 10-Not Attempted due to Environmental Limitations-(lack of equipment, weather restraints, etc.). 88-Not Attempted due to Medical Conditions or Safety Concerns. Shower/Bathe Self (QC): 1 Lower Body Dressing (QC): 1 On/Off Footwear: 2 Toileting Hygiene (QC): 1 Toilet Transfer (QC): 1 Daughter stated that she was moving items into her house so pt would be able to stay there. Also stated that pt's is moving into [facility] [place] today. OT Floor Covering Printer Assistant Goals Alf Goals Time Frame: Nov 26, 2021 Eating (QC): 5 Oral Hygiene (QC): 5 Toileting Hygiene (QC): 3 Shower/Bathe Self (QC): 3 Upper Body Dressing (QC): 4 Lower Body Dressing (QC): 3 On/Off Footwear (QC): 3 Additional Goals: 1-Demonstrate ADL Tasks, 2-Verbalize Understanding, 3- ImproveStrength/Virgen 1=Demonstrate adherence to instructed precautions during ADL tasks. 2=Patient will verbalize/demonstrate understanding of assistive devices/modifications for ADL. 3=Patient will improve strength/tolerance for activity to enable patient to perform ADL's. OT Education/Plan Problem List/Assessment Assessment: Decreased Activ Tolerance, Decreased UE Strength, Impaired Funct Balance, Impaired Self-Care Skills Discharge Recommendations Plan/Recommendations: Continue POC Treatment Plan/Plan of Care Patient would benefit from OT for education, treatment and training to promote independence in ADL's, mobility, safety and/or upper extremity function for ADL's. Plan of Care: ADL Retraining, Functional Mobility, UE Funct Exercise/Act Treatment Duration: Nov 26, 2021 Frequency: 3 times per week (3-5 times per week) Estimated Hrs Per Day: .25 hour per day Rehab Potential: Fair Time/GCodes Start Time: 08:50 Stop Time: 09:06 Total Time Billed (hr/min): 16 Billed Treatment Time 1 visit-ADL 1 (16 min) ANDREW CHEEMA Nov 09, 2021 10:11
[2021-11-09] MEDS: RT--FLUTICASONE/SALMETEROL 232-14 (AIRDUO RespiCLICK) IH SCH ×2 (10:34→21:44)
[2021-11-09] MEDS: EMPAGLIFLOZIN 10 MG TABLET (JARDIANCE) PO SCH (11:09)
--- NOTE | 2021-11-09 11:27 | Progress Note - Hospitalist ---
DEREK GUTIERREZ MED STUDENT 11/09/21 1126: Subjective HPI/CC On Admission Date Seen by Provider: Nov 09, 2021 Time Seen by Provider: 08:10 Sepsis Subjective/Events-last exam Mrs. Quiroz is a 71yo female with hx of HTN, DM, COPD, Hypothyroid, and recent bowel resection that presented to ER on 11/03 for decreased responsiveness. She had recently been discharged from hospital where she was in the ICU for respiratory failure and resection of necrotic bowel. After her discharge, she went home and had little food and liquid intake. She was also not having BMs or passing gas. She was having some nausea and vomiting and returned to the ER. She was diagnosed with Sepsis, PNA, dehydration with RUEL, and ileus. She was admitted with surgical and cardiology consult. She was on abx and bowel rest. She regained bowel function and improved with abx. She was ready to discharge on 11/09. She did not have any other events during her hospital course. Her was recently moved to [facility] [place] and she would like to be discharged to be with him, but she is also considering moving into inpatient rehab at [facility]. This morning she is sitting up in her chair. She states that she is not having any pain. Denies nausea or vomiting. Eating and drinking without difficulty. LBM was this morning. She has been doing PT and OT. She does not have any further concerns this morning. Review of Systems General: No Chills, No Night Sweats HEENT: No Head Aches, No Visual Changes, No Dysphasia Pulmonary: No Dyspnea, No Cough, No Pleuritic Chest Pain Cardiovascular: No: Chest Pain, Palpitations, Edema Gastrointestinal: No: Nausea, Vomiting, Abdominal Pain, Diarrhea, Constipation, Melena Genitourinary: No Dysuria, No Frequency, No Incontinence Musculoskeletal: No: leg pain, foot pain Neurological: No: Weakness, Numbness Focused Exam Time of Focused Exam: 14:00 Objective Exam Vital Signs Vital Signs Date Time Temp Pulse Resp B/P (MAP) Pulse Ox O2 Delivery O2 Flow Rate FiO2 11/09/21 10:27 96 Nasal Cannula 3.00 11/09/21 08:00 36.2 91 20 137/74 (95) 11/06/21 08:31 100 Capillary Refill : Less Than 3 Seconds General Appearance: No Apparent Distress, Chronically ill HEENT: Moist Mucous Membranes Neck: Supple Respiratory: Chest Non Tender, Lungs Clear, Normal Breath Sounds, No Accessory Muscle Use, No Respiratory Distress Cardiovascular: Regular Rate, Rhythm, No Edema, No Murmur, Normal Peripheral Pulses Gastrointestinal: Normal Bowel Sounds, No Organomegaly, No Pulsatile Mass, Non Tender, Soft Rectal: Deferred Extremity: Normal Capillary Refill, Normal Inspection, Non Tender, No Calf Tenderness, No Pedal Edema Neurologic/Psychiatric: Alert, Oriented x3, Normal Mood/Affect Skin: Normal Color, Warm/Dry Results/Procedures Lab Laboratory Tests 11/09/21 05:00 Patient resulted labs reviewed. Assessment/Plan Assessment and Plan Assess & Plan/Chief Complaint Sepsis UTI RUEL -Pt states she feel she is improving -White count down to 10.6 -On ABX, finished meropenem -Kidney function improved BUN:16 Creat:1.0 Hypokalemia -3.8 -resolved -Supplementing as needed -Continue morning labs Hyponatremia -135 -Resolved -Continue to monitor Hypotension -Resolved, 110/71 this morning -Home HTN meds Anemia -8.2 this morning -Continue to monitor -My need transfusion if drops under 7 Ileus -Resolved Hx of CHF, CAD, DMII -Home meds -Insulin, montor sugars Pt ready to discharge today, will go to rehab or [facility] to be with . DAVEY JARQUIN DO 11/10/21 0614: Subjective Subjective/Events-last exam Pt doing better Hgb 8.2 and that is up Completed Meropenem Diflucan still maintained 92% on two liters ADIS wraps to lower extremities and Lasix Review of Systems General: Fatigue, Malaise Objective Exam General Appearance: No Apparent Distress, WD/WN, Chronically ill, Obese Respiratory: Lungs Clear, Normal Breath Sounds Cardiovascular: Regular Rate, Rhythm Neurologic/Psychiatric: Alert, Oriented x3 Assessment/Plan Assessment and Plan Assess & Plan/Chief Complaint Supportive care [facility] [place] [facility] Supervisory-Addendum Brief Verification & Attestation Participated in pt care: history, MDM, physical Personally performed: exam, history, MDM, supervision of care Care discussed with: Medical Student Procedures: n/a Results interpretation: Verified all documentation Verification and Attestation of Medical Student E/M Service A medical student performed and documented this service in my presence. I reviewed and verified all information documented by the medical student and made modifications to such information, when appropriate. I personally performed the physical exam and medical decision making. Davey Jarquin, Nov 10, 2021,06:13 DEREK GUTIERREZ MED STUDENT Nov 09, 2021 11:26 DAVEY JARQUIN DO Nov 10, 2021 06:14
[2021-11-09] MEDS ORDERED: RT-ALBUTEROL/IPRATROPIUM 3 ML (DUONEB) VIAL INH PRN (15:00)
--- NOTE | 2021-11-09 18:16 | Progress Note - Cardiology ---
Cardiology SOAP Progress Note Subjective: Somnolent at time of my exam and does not report much Has continued to have leg swelling No cp or palp or syncope Objective: I&O/Vital Signs 11/09/21 11/09/21 11/09/21 11/09/21 08:00 09:00 10:27 12:00 Temp 36.2 35.9 Pulse 91 105 Resp 20 22 B/P (MAP) 137/74 (95) 130/76 (94) Pulse Ox 96 96 98 O2 Delivery Nasal Cannula Nasal Cannula Nasal Cannula Nasal Cannula O2 Flow Rate 2.00 2.00 3.00 2.00 11/09/21 11/09/21 11/09/21 14:41 14:41 15:39 Temp 35.9 36.0 Pulse 77 80 Resp 18 B/P (MAP) 112/70 (84) Pulse Ox 94 94 96 O2 Delivery Nasal Cannula Nasal Cannula O2 Flow Rate 3.00 3.00 11/09/21 00:00 Intake Total 1680 ml Output Total 1100 ml Balance 580 ml Constitutional: AAO x 3, well-developed, well-nourished Respiratory: No accessory muscle use, No respiratory distress; chest expansion is symmetric, chest is bilaterally symmetric, rhonchi (scattered), other (good air entry) Cardiovascular: regular rate-rhythm; No JVD; S1 and S2 Gastrointestional: other (post op abdomen) Extremities: other (2+ edema of the legs on 11/07/21) Neurologic/Psychiatric: grossly intact (moves all extremities) Skin: No rash on exposed areas, No ulcerations on exposed areas Results/Procedures: Labs Laboratory Tests 11/08/21 20:39: Glucometer 119H 11/09/21 05:00: White Blood Count 10.6, Red Blood Count 3.00L, Hemoglobin 8.2L, Hematocrit 26L, Mean Corpuscular Volume 86, Mean Corpuscular Hemoglobin 27, Mean Corpuscular Hemoglobin Concent 32, Red Cell Distribution Width 18.0H, Platelet Count 252, Mean Platelet Volume 10.4, Immature Granulocyte % (Auto) 4, Neutrophils (%) (Auto) 83H, Lymphocytes (%) (Auto) 6L, Monocytes (%) (Auto) 6, Eosinophils (%) (Auto) 0, Basophils (%) (Auto) 0, Neutrophils # (Auto) 8.8H, Lymphocytes # (Auto) 0.6L, Monocytes # (Auto) 0.7, Eosinophils # (Auto) 0.0, Basophils # (Auto) 0.0, Immature Granulocyte # (Auto) 0.5H, Neutrophils % (Manual) 89, Lymphocytes % (Manual) 6, Monocytes % (Manual) 3, Myelocytes % 1, Band N eutrophils 1, Hypochromasia SLIGHT, Microcytosis SLIGHT, Sodium Level 135, Potassium Level 3.8, Chloride Level 104, Carbon Dioxide Level 19L, Anion Gap 12, Blood Urea Nitrogen 16, Creatinine 1.00, Estimat Glomerular Filtration Rate 55, BUN/Creatinine Ratio 16, Glucose Level 139H, Calcium Level 7.2L, Corrected Calcium 8.4L, Phosphorus Level 3.3, Magnesium Level 1.8, Total Bilirubin 0.5, Aspartate Amino Transf (AST/SGOT) 28, Alanine Aminotransferase (ALT/SGPT) 12, Alkaline Phosphatase 140H, Total Protein 6.1L, Albumin 2.5L 11/09/21 05:06: Glucometer 135H 11/09/21 11:25: Glucometer 159H 11/09/21 15:13: Glucometer 82 Microbiology 11/05/21 MRSA Screen - Final, Complete MRSA not isolated 11/03/21 Urine Culture - Final, Complete Yeast species Klebsiella pneumoniae 11/03/21 Blood Culture - Final, Complete No growth Laboratory Tests 11/08/21 05:00 11/09/21 05:00 A/P: Assessment: Volume overload Septic shock, resolved Ileus - seen on CT of 11-04-21 GI - s/p exploratory laparotomy, right hemicolectomy, ileal resection(100cm) with ileocolonic anastamosis on 10/22/21 CAD - reports follows with cardiology at [facility] in [place] and has had cardiac stent placed in June 22, [address] Larry Lord - reported to be a [place] 3.25mm x 15 mm stent - location unknown Anemia of undetermined etiology - management per medical services Acute on chronic exacerbation of COPD Echo on 10/22/21: LVEF 55-60%, dilated RA DM 2 HTN - controlled HLD H/o frequent falls H/o frequent UTI's Plan: Give IV Lasix today d/t vol overload Continue to monitor H/H Monitor labs closely MIRTA AL MD FACP FACC CCDS Nov 09, 2021 18:16
[2021-11-09] MEDS: AMITRIPTYLINE 25 MG (ELAVIL) TAB PO SCH (21:27)
[2021-11-09] MEDS: rOPINIRole 1 MG (REQUIP) TABLET PO SCH (21:28)
[2021-11-10 04:09] VITALS: BP 138/72
[2021-11-10 05:40] LABS: BASOPHILS % (AUTO) 0 % (0-10); EOSINOPHILS % (AUTO) 0 % (0-10); HEMATOCRIT 25 % (35-52); LYMPHOCYTES # (AUTO) 0.6 10^3/uL (1.0-4.0); LYMPHOCYTES % (AUTO) 6 % (12-44); MEAN CORPUSCULAR HEMOGLOBIN 27 pg (25-34); MEAN CORPUSCULAR HGB CONC 32 g/dL (32-36); MEAN CORPUSCULAR VOLUME 86 fL (80-99); MEAN PLATELET VOLUME 10.6 fL (9.0-12.2); MONOCYTES # (AUTO) 0.7 10^3/uL (0.0-1.0); MONOCYTES % (AUTO) 6 % (0-12); NEUTROPHILS # (AUTO) 8.6 10^3/uL (1.8-7.8); NEUTROPHILS % (AUTO) 82 % (42-75); PLATELET COUNT 278 10^3/uL (130-400); WHITE BLOOD COUNT 10.5 10^3/uL (4.3-11.0)
[2021-11-10 05:51] LABS: ALBUMIN 2.4 GM/DL (3.2-4.5); POTASSIUM 3.5 MMOL/L (3.6-5.0)
[2021-11-10 05:52] LABS: CALCIUM 7.4 MG/DL (8.5-10.1)
[2021-11-10 05:54] LABS: TOTAL PROTEIN 5.7 GM/DL (6.4-8.2)
[2021-11-10 05:55] LABS: BILIRUBIN,TOTAL 0.5 MG/DL (0.1-1.0)
[2021-11-10 05:56] LABS: PHOSPHORUS 3.5 MG/DL (2.3-4.7)
[2021-11-10 05:57] LABS: CREATININE SERUM 0.93 MG/DL (0.60-1.30); MAGNESIUM 1.5 MG/DL (1.6-2.4)
[2021-11-10] MEDS: inSUlin ASPART (NovoLOG) 1 UNIT/0.01 ML (CHARGE PER UNIT) SC SCH ×4 (06:10→12:30)
[2021-11-10] MEDS: HYDROCORTISONE 100 MG/2 ML (Solu-CORTEF) VIAL IV SCH (06:37)
[2021-11-10] MEDS: DICYCLOMINE 10 MG (BENTYL) CAP PO SCH ×2 (06:37→12:29)
--- NOTE | 2021-11-10 06:48 | Progress Note - Hospitalist ---
Subjective HPI/CC On Admission Date Seen by Provider: Nov 10, 2021 Sepsis Focused Exam Time of Focused Exam: 14:00 Objective Exam Vital Signs Vital Signs Date Time Temp Pulse Resp B/P (MAP) Pulse Ox O2 Delivery O2 Flow Rate FiO2 11/10/21 08:14 93 Room Air 0.00 11/10/21 08:00 35.6 87 20 143/75 (97) 11/06/21 08:31 100 Capillary Refill : Less Than 3 Seconds Results/Procedures Lab Laboratory Tests 11/10/21 05:26 Patient resulted labs reviewed. Assessment/Plan Assessment and Plan Assess & Plan/Chief Complaint Supportive care [facility] [place] [facility] DAVEY JARQUIN DO Nov 10, 2021 06:48
[2021-11-10 08:00] VITALS: BP 143/75
[2021-11-10] MEDS: RT--FLUTICASONE/SALMETEROL 232-14 (AIRDUO RespiCLICK) IH SCH (08:08)
[2021-11-10] MEDS: RT-ALBUTEROL/IPRATROPIUM 3 ML (DUONEB) VIAL INH SCH (08:08)
[2021-11-10] MEDS: EMPAGLIFLOZIN 10 MG TABLET (JARDIANCE) PO SCH (09:19)
[2021-11-10] MEDS: LEVOTHYROXINE 88 MCG (LEVOTHORID) TAB PO SCH (09:19)
[2021-11-10] MEDS: TORSEMIDE 20 MG (DEMADEX) TAB PO SCH (09:19)
[2021-11-10] MEDS: CALCIUM CARBONATE 600 MG (CALCARB) TAB PO SCH (09:19)
[2021-11-10] MEDS: predniSONE 5 MG TAB PO SCH (09:19)
[2021-11-10] MEDS: CLOPIDOGREL 75 MG (PLAVIX) TABLET PO SCH (09:19)
[2021-11-10] MEDS: GABAPENTIN 400 MG (NEURONTIN) CAP PO SCH ×2 (09:19→12:29)
[2021-11-10] MEDS: PANTOPRAZOLE 40 MG (PROTONIX) TAB PO SCH (09:19)
[2021-11-10] MEDS: ASPIRIN E.C. 81 MG (ECOTRIN) TAB PO SCH (09:19)
[2021-11-10] MEDS: OMEGA 3 (FISH OIL) 1000 MG CAP PO SCH (09:19)
[2021-11-10] MEDS: ENOXAPARIN 40 MG/0.4 ML (LOVENOX) SYR SC SCH (09:20)
[2021-11-10] MEDS: FLUCONAZOLE 200 MG/100 ML 50 ML, EMPTY IV BAG (PVC) 1 EA IV SCH ×2 (09:33)
[2021-11-10] MEDS ORDERED: AMIT25TA9 PO (09:39)
[2021-11-10] MEDS ORDERED: INSN1U SQ (09:39)
[2021-11-10] MEDS ORDERED: DICY10CA12 PO (09:39)
[2021-11-10] MEDS ORDERED: BUDE10.2 INH (09:39)
[2021-11-10] MEDS ORDERED: ATOR80TA76 PO (09:39)
[2021-11-10] MEDS ORDERED: ROPI2TAB6 PO (09:39)
[2021-11-10] MEDS ORDERED: TIZA-169 PO (09:39)
[2021-11-10] MEDS ORDERED: PRED5TAB PO (09:39)
[2021-11-10] MEDS ORDERED: ALPR0.5T7 PO (09:39)
[2021-11-10] MEDS ORDERED: INSU100V31 SQ (09:39)
[2021-11-10] MEDS ORDERED: HYDR-3820 PO (09:39)
[2021-11-10] MEDS ORDERED: TORS20TA3 PO (09:39)
[2021-11-10] MEDS ORDERED: POLY17PO54 PO (09:39)
[2021-11-10] MEDS ORDERED: IPRA3AMP31 INH (09:39)
[2021-11-10] MEDS ORDERED: PANT40TA52 PO (09:39)
[2021-11-10] MEDS ORDERED: ENOX40DI8 SC (09:39)
[2021-11-10] MEDS ORDERED: GABA-490 PO (09:39)
[2021-11-10] MEDS ORDERED: EMPA10TA PO (09:39)
[2021-11-10] MEDS ORDERED: OMEG-160 PO (09:39)
[2021-11-10] MEDS ORDERED: LEVO88TA54 PO (09:39)
[2021-11-10] MEDS ORDERED: CLOP75TA28 PO (09:39)
[2021-11-10] MEDS ORDERED: ASPI-1238 PO (09:39)
[2021-11-10] MEDS ORDERED: CALC600T91 PO (09:39)
--- NOTE | 2021-11-10 09:40 | Discharge Inst-Skilled Nursing ---
Discharge Inst-Skilled NF Reconcile Patient Problems Problems Reviewed?: Yes Chief Complaint Sepsis Patient Instructions Patient Problems: Debility s/p ischemic bowel resection Goal: Return home Consult/Follow Up/Orders Follow Up Appt.: PCP 2 weeks [place] rounds Skilled NF Admit to: Certification (SNF) I certify that SNF services are required to be given on an inpatient basis because of the above named patient's need for long term care on a continui ng basis for the conditions(s) for which he/she was receiving inpatient hospital services prior to his/her transfer to the SNF. Senior Care Facility Order: Nursing Services, Senior Buyer-Evaluate & Treat, Physical Therapy-Evaluate & Treat Oxygen Delivery Method: Room Air Discharge Diet: No Restrictions Daily Activity as Tolerated: Yes Resuscitation Status: Full Code New & Resume Previous Orders New Medications: Enoxaparin Sodium (Enoxaparin Sodium) 40 Mg/0.4 Ml Syringe 40 MG SC DAILY, #14 SYRINGE Ipratropium/Albuterol Sulfate (Iprat-Albut 0.5-3(2.5) mg/3 ml) 3 Ml Ampul.neb 3 ML INH RTBID, #60 INHALER Polyethylene Glycol 3350 (Polyethylene Glycol 3350) 17 Gm Powd.pack 8.5 GM PO BID, #60 EACH Continued Medications: Alprazolam (Alprazolam) 0.5 Mg Tablet 0.5 MG PO TID PRN for ANXIETY, #20 TAB (This prescription has been renewed) Amitriptyline HCl (Amitriptyline HCl) 25 Mg Tablet 25 MG PO HS, #30 TAB (This prescription has been renewed) Aspirin (Aspirin EC) 81 Mg Tablet.dr 81 MG PO DAILY, #90 TAB (This prescription has been renewed) Atorvastatin Calcium (Atorvastatin Calcium) 80 Mg Tablet 80 MG PO HS, #90 TAB (This prescription has been renewed) Budesonide/Formoterol Fumarate (Symbicort 160-4.5 Mcg Inhaler) 10.2 Gm Hfa.aer.ad 2 PUFF INH BID, #1 EA (This prescription has been renewed) Calcium Carbonate (Calcium) 600 Mg Tablet 600 MG PO DAILY, #30 TAB (This prescription has been renewed) Clopidogrel Bisulfate (Clopidogrel) 75 Mg Tablet 75 MG PO DAILY, #90 TAB (This prescription has been renewed) Dicyclomine HCl (Dicyclomine HCl) 10 Mg Capsule 10 MG PO QIDACHS, #120 CAP (This prescription has been renewed) Empagliflozin (Jardiance) 10 Mg Tablet 10 MG PO DAILY, #30 TAB (This prescription has been renewed) Gabapentin (Gabapentin) 400 Mg Capsule 400 MG PO TID, #90 CAP (This prescription has been renewed) Hydrocodone/Acetaminophen (Hydrocodone-Acetamin 10-325 mg) 1 Each Tablet 1 EA PO Q4H PRN for PAIN-MODERATE (5-7), #20 TAB (This prescription has been renewed) Insulin NPH Human Isophane (Novolin N) 100 Unit/1 Ml Vial 10 UNIT SQ TID, #1 EA (This prescription has been renewed) Insulin Regular, Human (Novolin R) 100 Unit/1 Ml Vial 10 UNIT SQ TID, #1 EA (This prescription has been renewed) Levothyroxine Sodium (Levothyroxine Sodium) 88 Mcg Tablet 88 MCG PO DAILY, #90 TAB (This prescription has been renewed) [place]-3/Dha/Epa/Fish Oil (Fish Oil 1,000 mg Softgel) 1 Each Capsule 1 EACH PO DAILY, #90 CAP (This prescription has been renewed) Pantoprazole Sodium (Pantoprazole Sodium) 40 Mg Tablet.dr 40 MG PO DAILY, #30 TAB (This prescription has been renewed) Prednisone (Prednisone) 5 Mg Tablet 5 MG PO DAILY, #30 TAB (This prescription has been renewed) Ropinirole HCl (Ropinirole HCl) 2 Mg Tablet 4 MG PO HS, #30 TAB (This prescription has been renewed) TAKES 2 (2MG) TABS Tizanidine HCl (Tizanidine HCl) 2 Mg Tablet 2 MG PO TID PRN for MUSCLE SPASMS, #30 TAB (This prescription has been renewed) Torsemide (Torsemide) 20 Mg Tablet 20 MG PO DAILY, #30 TAB (This prescription has been renewed) Katya Hernandez Nov 10, 2021 09:40 KATYA HERNANDEZ DO Nov 10, 2021 09:40
--- NOTE | 2021-11-10 09:41 | Discharge Summary ---
Discharge Summary Hospital Course Was the Problem List Reviewed?: Yes Problems/Dx: (1) Septic shock Status: Acute (2) CHF (congestive heart failure) Status: Chronic Qualifiers: Qualified Codes: I50.32 - Chronic diastolic (congestive) heart failure (3) CAD (coronary artery disease) Status: Chronic Qualifiers: Qualified Codes: I25.10 - Atherosclerotic heart disease of [place] coronary artery without angina pectoris (4) COPD (chronic obstructive pulmonary disease) Status: Chronic Qualifiers: Qualified Codes: J44.9 - Chronic obstructive pulmonary disease, unspecified (5) Diabetes Status: Chronic Qualifiers: Qualified Codes: E11.65 - Type 2 diabetes mellitus with hyperglycemia; Z79.4 - custodial (current) use of insulin (6) DVT prophylaxis Status: Acute (7) Dehydration Status: Resolved (8) Ileus Status: Acute (9) Pneumonia Status: Acute Hospital Course Date of Admission: Nov 03, 2021 at 15:55 Admission Diagnosis : Family Physician/Provider: Jayjay Rendon MD Date of Discharge: 11/10/21 Discharge Diagnosis: Septic shock, UTI, pneumonia, colitis, COPD, diabetes Hospital Course: Hospital course: Pt had an uneventful eight day hospital course when she was admitted for sepsis after recent discharge from ischemic bowel s/p resection and intubation and extubation. She has a history of COPD with continued smoking but overall she felt like she was ready, labs remains stable, oxygen requirement was stable and Hgb was 8.0 and she wanted to go to [facility] to be with her h usband of 53 years so he could recover from a hip fracture Labs and Pending Lab Test: Laboratory Tests 11/09/21 11:25: Glucometer 159H 11/09/21 15:13: Glucometer 82 11/09/21 20:04: Glucometer 71 11/10/21 05:26: White Blood Count 10.5, Red Blood Count 2.96L, Hemoglobin 8.0L, Hematocrit 25L, Mean Corpuscular Volume 86, Mean Corpuscular Hemoglobin 27, Mean Corpuscular Hemoglobin Concent 32, Red Cell Distribution Width 17.9H, Platelet Count 278, Mean Platelet Volume 10.6, Immature Granulocyte % (Auto) 6, Neutrophils (%) (Auto) 82H, Lymphocytes (%) (Auto) 6L, Monocytes (%) (Auto) 6, Eosinophils (%) (Auto) 0, Basophils (%) (Auto) 0, Neutrophils # (Auto) 8.6H, Lymphocytes # (Auto) 0.6L, Monocytes # (Auto) 0.7, Eosinophils # (Auto) 0.0, Basophils # (Auto) 0.0, Immature Granulocyte # (Auto) 0.6H, Sodium Level 138, Potassium Level 3.5L, Chloride Level 103, Carbon Dioxide Level 21, Anion Gap 14, Blood Urea Nitrogen 14, Creatinine 0.93, Estimat Glomerular Filtration Rate 60, BUN/Creatinine Ratio 15, Glucose Level 141H, Calcium Level 7.4L, Corrected Calcium 8.7, Phosphorus Level 3.5, Magnesium Level 1.5L, Total Bilirubin 0.5, Aspartate Amino Transf (AST/SGOT) 31, Alanine Aminotransferase (ALT/SGPT) 13, Alkaline Phosphatase 136, Total Protein 5.7L, Albumin 2.4L Microbiology 11/05/21 MRSA Screen - Final, Complete MRSA not isolated 11/03/21 Urine Culture - Final, Complete Yeast species Klebsiella pneumoniae 11/03/21 Blood Culture - Final, Complete No growth Home Meds Active Polyethylene Glycol 3350 17 Gm Powd.pack 8.5 Gm PO BID Iprat-Albut 0.5-3(2.5) mg/3 ml (Ipratropium/Albuterol Sulfate) 3 Ml Ampul.neb 3 Ml INH RTBID Enoxaparin Sodium 40 Mg/0.4 Ml Syringe 40 Mg SC DAILY Hydrocodone-Acetamin 10-325 mg (Hydrocodone/Acetaminophen) 1 Each Tablet 1 Ea PO Q4H PRN Symbicort 160-4.5 Mcg Inhaler (Budesonide/Formoterol Fumarate) 10.2 Gm Hfa.aer.ad 2 Puff INH BID Novolin N (Insulin NPH Human Isophane) 100 Unit/1 Ml Vial 10 Unit SQ TID Novolin R (Insulin Regular, Human) 100 Unit/1 Ml Vial 10 Unit SQ TID Prednisone 5 Mg Tablet 5 Mg PO DAILY Aspirin EC (Aspirin) 81 Mg Tablet.dr 81 Mg PO DAILY Calcium (Calcium Carbonate) 600 Mg Tablet 600 Mg PO DAILY Fish Oil 1,000 mg Softgel ([place]-3/Dha/Epa/Fish Oil) 1 Each Capsule 1 Each PO DAILY Jardiance (Empagliflozin) 10 Mg Tablet 10 Mg PO DAILY Gabapentin 400 Mg Capsule 400 Mg PO TID Pantoprazole Sodium 40 Mg Tablet.dr 40 Mg PO DAILY Levothyroxine Sodium 88 Mcg Tablet 88 Mcg PO DAILY Torsemide 20 Mg Tablet 20 Mg PO DAILY Tizanidine HCl 2 Mg Tablet 2 Mg PO TID PRN Amitriptyline HCl 25 Mg Tablet 25 Mg PO HS Atorvastatin Calcium 80 Mg Tablet 80 Mg PO HS Clopidogrel (Clopidogrel Bisulfate) 75 Mg Tablet 75 Mg PO DAILY Dicyclomine HCl 10 Mg Capsule 10 Mg PO QIDACHS Alprazolam 0.5 Mg Tablet 0.5 Mg PO TID PRN Ropinirole HCl 2 Mg Tablet 4 Mg PO HS TAKES 2 (2MG) TABS Assessment/Pt Instructions PCP on longterm rounds Discharge Planning: <30 minutes discharge planning Discharge Instructions Discharge Diet: No Restrictions Discharge Physical Examination Vital Signs Vital Signs Date Time Temp Pulse Resp B/P (MAP) Pulse Ox O2 Delivery O2 Flow Rate FiO2 11/10/21 08:14 93 Room Air 0.00 11/10/21 08:00 35.6 87 20 143/75 (97) 11/06/21 08:31 100 General Appearance: No Apparent Distress, WD/WN, Chronically ill Allergies: Coded Allergies: Penicillins (Unverified Adverse Reaction, Unknown, 01/16/21) cephalexin (Unverified Adverse Reaction, Unknown, 01/16/21) ciprofloxacin (Unverified Adverse Reaction, Unknown, 01/16/21) erythromycin base (Unverified Adverse Reaction, Unknown, 01/16/21) Discharge Summary Date of Admission Nov 03, 2021 at 15:55 Date of Discharge Discharge Date: Nov 10, 2021 Discharge Diagnosis [facility] DAVEY JARQUIN DO Nov 10, 2021 09:41
--- NOTE | 2021-11-10 10:36 | Physical Therapy Daily Note ---
PT Daily Note-Current Subjective Patient in recliner pre tx, agrees reluctantly to PT after encouragement, has unrated abdominal pain. Appearance Patient in recliner post tx with nurse call, phone, tray, all needs met. Mental Status Patient Orientation: Person, Place, Situation Attachments: Parker Catheter, IV Transfers SCALE: Activities may be completed with or without assistive devices. 1-Ollqyuxtzs-bzwnpox completes the activity by him/herself with no assistance from a helper. 5-Set-up or Clean-up Assistance-helper sets up or cleans up; patient completes activity. [place] assists only prior to or following the activity. 4-Supervision or Touching Assistance-helper provides verbal cues and/or touching/steadying and/or contact guard assistance as patient completes activity. Assistance may be provided throughout the activity or intermittently. 3-Partial/Moderate Assistance-helper does LESS THAN HALF the effort. [place] lifts, holds or supports trunk or limbs, but provides less than half the effort. 2-Substantial/Maximal Assistance-helper does MORE THAN HALF the effort. [place] lifts or holds trunk or limbs and provides more than half the effort. 5-Yhgppejam-fgedtv does ALL the effort. Patient does none of the effort to complete the activity. Or, the assistance of 2 or more helpers is required for the patient to complete the activity. If activity was not attempted, code reason: 7-Patient Refused. 9-Not Applicable-not attempted and the patient did not perform the activity before the current illness, exacerbation or injury. 10-Not Attempted due to Environmental Limitations-(lack of equipment, weather restraints, etc.). 88-Not Attempted due to Medical Conditions or Safety Concerns. Sit to Stand (QC): 2 Patient stood once with max assist and was able to stand for about 10 seconds, the second time she was again able to stand with max assist but only for a second or two. Weight Bearing Right Lower Extremity: Right Weight Bearing/Tolerated Left Lower Extremity: Left Weight Bearing/Tolerated Exercises Seated Therapy Exercises: Ankle pumps, Long arc quads Seated Reps: 20 Treatments standing, LE strengthening Assessment Current Status: Poor Progress Patient needs encouragement to participate, she is very frustrated with her pain. PT Rotary Furnace Tender Goals Rotary Furnace Tender Goals PT Rotary Furnace Tender Goals Time Frame: Nov 18, 2021 Roll Left & Right (QC): 4 Sit to Lying (QC): 4 Lying-Sitting on Side/Bed(QC): 4 Sit to Stand (QC): 4 Chair/Kdu-og-Zbsfe Xfer(QC): 4 Toilet Transfer (QC): 4 Car Transfer (QC): 4 Does the Patient Walk: Yes Walk 10 feet (QC): 4 1 Step (curb) (QC): 4 4 Steps (QC): 4 PT Plan Problem List Problem List: Activity Tolerance, Functional Strength, Safety, Balance, Gait, Transfer, Bed Mobility, ROM Treatment/Plan Treatment Plan: Continue Plan of Care Treatment Plan: Bed Mobility, Functional Activity Virgen, Functional Strength, Gait, Safety, Therapeutic Exercise, Transfers Treatment Duration: Nov 18, 2021 Frequency: 6 times per week Estimated Hrs Per Day: .5 hour per day Patient and/or Family Agrees t: Yes Safety Risks/Education Patient Education: Correct Positioning, Safety Issues Teaching Recipient: Patient Teaching Methods: Demonstration, Discussion Response to Teaching: Reinforcement Needed Time/GCodes Time In: 0954 Time Out: 1004 Total Billed Treatment Time: 10 Total Billed Treatment 1 visit FA ELVIS CHO PT Nov 10, 2021 10:36
--- NOTE | 2021-11-10 11:03 | Occupational Ther Daily Note ---
OT Current Status-Daily Note Subjective Pt alert, sitting in recliner. Pt agrees to therapy after max encouragement. Pt c/o abdominal pain, nrsg aware. Mental Status/Objective Patient Orientation: Person, Place, Time, Situation Attachments: IV ADL-Treatment Pt requires assist to thread feet into briefs, pulled up B legs by self then assist x2 for standing and hiking pants over hips. Pt stood 2x's with assist x2 for a short duration. Pt c/o fatigue and weak B LE's. After session, pt sitting in recliner with call light/phone in reach. All needs met in room. Therapy Code Descriptions/Definitions Functional [place] Measure: 0=Not Assessed/NA 4=Minimal Assistance 1=Total Assistance 5=Supervision or Setup 2=Maximal Assistance 6=Modified [place] 3=Moderate Assistance 7=Complete IndependenceSCALE: Activities may be completed with or without assistive devices. 4-Qijhudhqae-klrkvmg completes the activity by him/herself with no assistance from a helper. 5-Set-up or Clean-up Assistance-helper sets up or cleans up; patient completes activity. [place] assists only prior to or following the activity. 4-Supervision or Touching Assistance-helper provides verbal cues and/or t ouching/steadying and/or contact guard assistance as patient completes activity. Assistance may be provided throughout the activity or intermittently. 3-Partial/Moderate Assistance-helper does LESS THAN HALF the effort. [place] lifts, holds or supports trunk or limbs, but provides less than half the effort. 2-Substantial/Maximal Assistance-helper does MORE THAN HALF the effort. [place] lifts or holds trunk or limbs and provides more than half the effort. 1-Jqpgtlufz-kzpznc does ALL the effort. Patient does none of the effort to complete the activity. Or, the assistance of 2 or more helpers is required for the patient to complete the activity. If activity was not attempted, code reason: 7-Patient Refused. 9-Not Applicable-not attempted and the patient did not perform the activity before the current illness, exacerbation or injury. 10-Not Attempted due to Environmental Limitations-(lack of equipment, weather restraints, etc.). 88-Not Attempted due to Medical Conditions or Safety Concerns. Lower Body Dressing (QC): 1 On/Off Footwear: 2 OT Dye Tub Operator Goals Halfway Goals Time Frame: Nov 26, 2021 Eating (QC): 5 Oral Hygiene (QC): 5 Toileting Hygiene (QC): 3 Shower/Bathe Self (QC): 3 Upper Body Dressing (QC): 4 Lower Body Dressing (QC): 3 On/Off Footwear (QC): 3 Additional Goals: 1-Demonstrate ADL Tasks, 2-Verbalize Understanding, 3- ImproveStrength/Virgen 1=Demonstrate adherence to instructed precautions during ADL tasks. 2=Patient will verbalize/demonstrate understanding of assistive devices/modif ications for ADL. 3=Patient will improve strength/tolerance for activity to enable patient to perform ADL's. OT Education/Plan Problem List/Assessment Assessment: Decreased Activ Tolerance, Impaired Self-Care Skills Discharge Recommendations Plan/Recommendations: Continue POC Treatment Plan/Plan of Care Patient would benefit from OT for education, treatment and training to promote independence in ADL's, mobility, safety and/or upper extremity function for ADL's. Plan of Care: ADL Retraining, Functional Mobility, UE Funct Exercise/Act Treatment Duration: Nov 26, 2021 Frequency: 3 times per week (3-5 times per week) Estimated Hrs Per Day: .25 hour per day Rehab Potential: Fair Time/GCodes Start Time: 09:54 Stop Time: 10:04 Total Time Billed (hr/min): 10 Billed Treatment Time 1 visit-ADL 1 (10 min) ANDRWE CHEEMA Nov 10, 2021 11:03
[2021-11-10] MEDS: polyethylene glycoL POWDER 17 GM (MIRALAX) PACK PO SCH (11:17)
[2021-11-10 12:00] VITALS: BP 99/65
[2021-11-10 13:30] VITALS: BP 99/65
== END 2021-11-10 13:25 | disposition home or self-care (01) | DRG 871 ==
LOC: EDUNIT# 11:53 → ER FS 11:54 → CSD 15:55 → ICU 11-04 10:00 → 4TH 11-06 16:55
PROVIDERS: ADMIT Family Medicine; ATTEND Internal Medicine
DX: A41.9 Sepsis, unspecified organism (principal); R65.21 Severe sepsis with septic shock; J18.9 Pneumonia, unspecified organism; N17.9 Acute kidney failure, unspecified; K56.7 Ileus, unspecified; N39.0 Urinary tract infection, site not specified; J44.0 Chronic obstructive pulmonary disease with (acute) lower respiratory infection; I13.0 Hypertensive heart and chronic kidney disease with heart failure and stage 1 through stage 4 chronic kidney disease, or unspecified chronic kidney disease; E87.2 Acidosis; E87.1 Hypo-osmolality and hyponatremia; I50.32 Chronic diastolic (congestive) heart failure; J44.1 Chronic obstructive pulmonary disease with (acute) exacerbation; Z79.82 Long term (current) use of aspirin; Z79.4 Long term (current) use of insulin; Z79.890 Hormone replacement therapy; Z79.899 Other long term (current) drug therapy; Z99.81 Dependence on supplemental oxygen; E03.9 Hypothyroidism, unspecified; I25.2 Old myocardial infarction; E78.00 Pure hypercholesterolemia, unspecified; E11.51 Type 2 diabetes mellitus with diabetic peripheral angiopathy without gangrene; K21.9 Gastro-esophageal reflux disease without esophagitis; M19.90 Unspecified osteoarthritis, unspecified site; F41.9 Anxiety disorder, unspecified; E86.0 Dehydration; Z95.820 Peripheral vascular angioplasty status with implants and grafts; Z96.652 Presence of left artificial knee joint; Z90.49 Acquired absence of other specified parts of digestive tract; Z88.0 Allergy status to penicillin; Z88.1 Allergy status to other antibiotic agents; F17.210 Nicotine dependence, cigarettes, uncomplicated; I25.10 Atherosclerotic heart disease of native coronary artery without angina pectoris; I95.9 Hypotension, unspecified; Z95.5 Presence of coronary angioplasty implant and graft; N18.9 Chronic kidney disease, unspecified; R09.02 Hypoxemia; E87.6 Hypokalemia; R53.81 Other malaise; E87.70 Fluid overload, unspecified
CPT/HCPCS: 36415; 36569; 51702; 70450; 71260; 74019; 74177; 76937; 80048; 80053; 81000; 82947; 83605; 83690; 83735; 83880; 84100; 84484; 85007; 85025; 85027; 85610; 85730; 87040; 87077; 87081; 87088; 93005; 93041; 94640; 94760

== ENCOUNTER 2021-11-13 11:49 | Inpatient (IN) | payer MEDICARE ==
[~2021-11-13] VITALS: Ht 175 cm; Wt 109.1 kg
[~2021-11-13 11:49] MED LIST changes: +ENOX40DI8 SC; +HYDR-3820 PO; +IPRA3AMP31 INH; +POLY17PO54 PO
--- OUTSIDE RECORDS SUMMARY | 2021-11-13 11:54 | XMS REPORT | Clinical Summary ---
Author Author [facility] Organization [facility] Address Unknown Phone Unavailable Care Team Providers Care Magazine Grinder Loader Name Role Phone Jayjay Rendon MD PCP [...] with normal EF and no R [facility]MA [facility] with PCI to RCA on 06/22/21 Continue DAPT, high intensity statin, b eta-keerthi Jardiance cost check pending Tobacco abuse 06/20/2021 Last Assessment & Plan: Formatting of this note might be differ ent from the original. 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 ics/antiplatelets Coronary atherosclerosis of [place] nary vessel S/P drug eluting coronary [...] 09/30/2021 Refill General Internal Me Elayne Shields, academic hospitalist Refill (Plavix) 09/30/2021 Telephone Cardiology Heidy Ortega MD Medication Refill 09/30/2021 Refill General Internal Il Kristopher Panda MD Atherosclerosis of [place] coronary arter y of [place] heart without angina pectoris (Primary Dx); S/P drug eluting coronary stent placement; Mixed hyperlipidemia; assisted (current) use of antithrombotics/antiplatelets; Tobacco abuse 09/23/2021 [...] Type Specialty Bill Zamudio, ALISHA [address] [facility] [address] [place] [address] 03/29/2022 Video Visit Cardiology Health Maintenance Due [...] ot Implanted 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 Manufactur er 11/26/2021 [id number] / [id number] / [id number] [employer] 3.25 Mm X 15 Mm De Stent Stent ABB ALEXIS - [id number] VASCULAR Implanted: Qty: 1 on 06/22/2021 by Larry Lord MD at [facility] Procedures Comments Procedure Name Priority Date/Time Associated [...] / Dates Group MEDICARE REPLACEMENT PLAN [employer] [id number] 2019-P [phone] [address] MEDICARE resent [id number] [employer], [place] [address] [id number] [facility] [place], [place] [address] Nikolay Quirozkiley Personal/F Self 1950 [address] [facility] [place], [place] [address] Advance Directives For more information, please contact: [phone] 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
[2021-11-13] MEDS ORDERED: NS IV 1000 ML 1,000 ML IV STA ×2 (11:58→12:41)
[2021-11-13] MEDS ORDERED: NS IV 1000 ML 1,000 ML IV SCH ×3 (12:00→14:15)
[2021-11-13 12:09] LABS: HEMATOCRIT 24 % (35-52); HEMOGLOBIN 7.8 g/dL (11.5-16.0); MEAN CORPUSCULAR HEMOGLOBIN 28 pg (25-34); MEAN CORPUSCULAR HGB CONC 33 g/dL (32-36); MEAN CORPUSCULAR VOLUME 85 fL (80-99); MEAN PLATELET VOLUME 10.8 fL (9.0-12.2); PLATELET COUNT 316 10^3/uL (130-400)
[2021-11-13 12:10] LABS: BASOPHILS % (AUTO) 0 % (0-10); EOSINOPHILS # (AUTO) 0.1 10^3/uL (0.0-0.3); EOSINOPHILS % (AUTO) 1 % (0-10); LYMPHOCYTES # (AUTO) 2.7 X 10^3 (1.0-4.0); LYMPHOCYTES % (AUTO) 17 % (12-44); MONOCYTES # (AUTO) 0.8 X 10^3 (0.0-1.0); MONOCYTES % (AUTO) 5 % (0-12); NEUTROPHILS # (AUTO) 11.5 X 10^3 (1.8-7.8); NEUTROPHILS % (AUTO) 72 % (42-75)
[2021-11-13 12:13] LABS: CLARITY,URINE SLIGHLTY CLOUDY; COLOR,URINE YELLOW
[2021-11-13 12:14] LABS: BACTERIA,URINE FEW /HPF; BILIRUBIN,URINE NEGATIVE (NEGATIVE); GLUCOSE, URINE (UA) 2+ (NEGATIVE); KETONES,URINE NEGATIVE (NEGATIVE); LEUKOCYTE ESTERASE ,URINE 1+ (NEGATIVE); NITRITE,URINE NEGATIVE (NEGATIVE); PROTEIN,URINE TRACE (NEGATIVE); WBC,URINE TNTC /HPF; YEAST,URINE FEW /HPF
[2021-11-13 12:16] LABS: INR 1.2 (0.8-1.4)
--- NOTE | 2021-11-13 12:16 | ED General ---
General Stated Complaint: ABD PAIN Source of Information: Patient, EMS, Long-Term Records, Old Records History of Present Illness Date Seen by Provider: Nov 13, 2021 Time Seen by Provider: 11:49 Initial Comments 71-year-old female presenting by EMS from [facility] due to low blood sugar and shortness of breath with abdominal pain. She was discharged from the hospital on 1222 after having sepsis and COPD exacerbation. She is having urinary incontinence. She was found with decreased responsiveness and skilled nursing. She had a low blood sugar and states that she has not eaten anything today. EMS reports a blood sugar of 37 and the administered IV dextrose. This brought her up to over 200 for her glucose. She has more alert and awake on arrival to the ED. She is having urinary incontinence but denies having any pain when she urinates. She is unsure of her last bowel movement. She was given a DuoNeb breathing treatment by the skilled nursing and this was finished by EMS. She is asking to have something to eat here in the ED. She is unable or unwilling to answer most questions. She is oxygen dependent for her COPD but primarily uses it at night. They do have her on 3 L of O2 currently. She denies having any nausea or vomiting. Timing/Duration: 1/2 Hour Severity: Moderate Associated Systoms: No Chest Pain, No Cough, No Diaphoresis, No Fever/Chills, No Headaches; Malaise; No Nausea/Vomiting, No Rash, No Seizure; Shortness of Air; No Syncope; Weakness (Generalized) Allergies and Home Medications Allergies Coded Allergies: Penicillins (Unverified Adverse Reaction, Unknown, 01/16/21) cephalexin (Unverified Adverse Reaction, Unknown, 01/16/21) ciprofloxacin (Unverified Adverse Reaction, Unknown, 01/16/21) erythromycin base (Unverified Adverse Reaction, Unknown, 01/16/21) Patient Home Medication List Home Medication List Reviewed: Yes Alprazolam (Alprazolam) 0.5 Mg Tablet, 0.5 MG PO TID PRN for ANXIETY Prescribed by: DAVEY JARQUIN on 11/10/21938 Amitriptyline HCl (Amitriptyline HCl) 25 Mg Tablet, 25 MG PO HS Prescribed by: DAVEY JARQUIN on 11/10/21938 Aspirin (Aspirin EC) 81 Mg Tablet.dr, 81 MG PO DAILY Prescribed by: DAVEY JARQUIN on 11/10/21938 Atorvastatin Calcium (Atorvastatin Calcium) 80 Mg Tablet, 80 MG PO HS Prescribed by: DAVEY JARQUIN on 11/10/21938 Budesonide/Formoterol Fumarate (Symbicort 160-4.5 Mcg Inhaler) 10.2 Gm Hfa.aer.ad, 2 PUFF INH BID Prescribed by: DAVEY JARQUIN on 11/10/21938 Calcium Carbonate (Calcium) 600 Mg Tablet, 600 MG PO DAILY Prescribed by: DAVEY JARQUIN on 11/10/21938 Clopidogrel Bisulfate (Clopidogrel) 75 Mg Tablet, 75 MG PO DAILY Prescribed by: DAVEY JARQUIN on 11/10/21938 Dicyclomine HCl (Dicyclomine HCl) 10 Mg Capsule, 10 MG PO QIDACHS Prescribed by: DAVEY JARQUIN on 11/10/21938 Empagliflozin (Jardiance) 10 Mg Tablet, 10 MG PO DAILY Prescribed by: DAVEY JARQUIN on 11/10/21938 Enoxaparin Sodium (Enoxaparin Sodium) 40 Mg/0.4 Ml Syringe, 40 MG SC DAILY Prescribed by: DAVEY JARQUIN on 11/10/21938 Gabapentin (Gabapentin) 400 Mg Capsule, 400 MG PO TID Prescribed by: DAVEY JARQUIN on 11/10/21938 Hydrocodone/Acetaminophen (Hydrocodone-Acetamin 10-325 mg) 1 Each Tablet, 1 EA PO Q4H PRN for PAIN-MODERATE (5-7) Prescribed by: DAVEY JARQUIN on 11/10/21938 Insulin NPH Human Isophane (Novolin N) 100 Unit/1 Ml Vial, 10 UNIT SQ TID Prescribed by: DAVEY JARQUIN on 11/10/21938 Insulin Regular, Human (Novolin R) 100 Unit/1 Ml Vial, 10 UNIT SQ TID Prescribed by: DAVEY JARQUIN on 11/10/21938 Ipratropium/Albuterol Sulfate (Iprat-Albut 0.5-3(2.5) mg/3 ml) 3 Ml Ampul.neb, 3 ML INH RTBID Prescribed by: DAVEY JARQUIN on 11/10/21938 Levothyroxine Sodium (Levothyroxine Sodium) 88 Mcg Tablet, 88 MCG PO DAILY Prescribed by: DAVEY JARQUIN on 11/10/21938 [place]mond-3/Dha/Epa/Fish Oil (Fish Oil 1,000 mg Softgel) 1 Each Capsule, 1 EACH PO DAILY Prescribed by: DAVEY JARQUIN on 11/10/21938 Pantoprazole Sodium (Pantoprazole Sodium) 40 Mg Tablet.dr, 40 MG PO DAILY Prescribed by: DAVEY JARQUIN on 11/10/21938 Polyethylene Glycol 3350 (Polyethylene Glycol 3350) 17 Gm Powd.pack, 8.5 GM PO BID Prescribed by: DAVEY JARQUIN on 11/10/21938 Prednisone (Prednisone) 5 Mg Tablet, 5 MG PO DAILY Prescribed by: DAVEY JARQUIN on 11/10/21938 Ropinirole HCl (Ropinirole HCl) 2 Mg Tablet, 4 MG PO HS Prescribed by: DAVEY JARQUIN on 11/10/21938 Tizanidine HCl (Tizanidine HCl) 2 Mg Tablet, 2 MG PO TID PRN for MUSCLE SPASMS Prescribed by: DAVEY JARQUIN on 11/10/21938 Torsemide (Torsemide) 20 Mg Tablet, 20 MG PO DAILY Prescribed by: DAVEY JARQUIN on 11/10/21938 Review of Systems Review of Systems Constitutional: chills; No fever; malaise, weakness (Generalized) EENTM: no symptoms reported Respiratory: cough, short of breath; No stridor, No wheezing Cardiovascular: No chest pain; edema (Chronic edema to her lower extremities) Gastrointestinal: abdominal pain (Diffuse abdominal pain with some distention.), constipation, loss of appetite; No nausea, No vomiting Genitourinary: No dysuria; incontinence (Wearing a brief) Musculoskeletal: no symptoms reported Skin: No rash Psychiatric/Neurological: No Symptoms Reported Hematologic/Lymphatic: Easy Bleeding (on plavix and lovenox), Easy Bruising (on plavix and lovenox) Past Snlqkmi-Iublgr-Rwfhgx Hx Patient Social History Tobacco Use?: Yes Tobacco type used: Cigarettes Smoking Status: Current Everyday Smoker Immunizations Up To Date Tetanus Booster (TDap): Unknown First/Initial COVID19 Vaccinat: UTD Second COVID19 Vaccination Lon: UTD Third COVID19 Vaccination Date: 01/2021 Seasonal Allergies Seasonal Allergies: No Past Medical History Surgery/Hospitalization HX: HTN, DM, COPD with O2 dependency at night, frequent falls, Hypothyroidism. Bowel resection discharged 10/31/21 Surgeries: Yes (Bilat knee arthroscopy, L TKR, Bladder suspension, Pituitary tumor exc) Bladder Surgery, Gallbladder, Joint Replacement, Orthopedic Respiratory: Yes (Tobaccoism) COPD Cardiac: Yes Heart Attack, High Cholesterol, Hypertension, Peripheral Vascular Neurological: No Genitourinary: Yes (Bladder suspension for incont) Bladder Infection Gastrointestinal: Yes (EGD/Colonoscopy; 4 ulcers) Gastroesophageal Reflux Musculoskeletal: Yes Arthritis Endocrine: Yes Hypothyroidsim, Diabetes, Non-Insulin dep HEENT: No Cancer: No Psychosocial: Yes Anxiety Integumentary: No (thin skin with numerous skin tears/ecchymosis) Blood Disorders: No Physical Exam Vital Signs Vital Signs - First Documented 11/13/21 11/13/21 11:50 12:34 Temp 36.6 Pulse 96 Resp 18 B/P (MAP) 88/32 (50) Pulse Ox 96 O2 Delivery Nasal Cannula O2 Flow Rate 3.50 FiO2 96 Capillary Refill : Height, Weight, BMI Height: '" Weight: lbs. oz. kg; 39.08 BMI Method: General Appearance: Mild Distress, Obese, Other (Patient is slow to answer questions and will occasionally moan but not answer my she is moaning) HEENT: PERRL/EOMI; No Moist Mucous Membranes (slightly dry mucous membranes) Neck: Full Range of Motion, Non Tender Respiratory: Chest Non Tender, Normal Breath Sounds, No Accessory Muscle Use, No Respiratory Distress, Decreased Breath Sounds Cardiovascular: Normal Peripheral Pulses, Irregularly Irregular Gastrointestinal: Normal Bowel Sounds, No Pulsatile Mass, Soft, Distended; No Guarding, No Rebound; Tenderness (Mild diffuse tenderness to palpation of the abdomen) Rectal: Deferred Extremity: Normal Capillary Refill, Pedal Edema (1+ bilater lower extremity pitting edema) Neurologic/Psychiatric: Alert; No Oriented x3 (oriented to self and place but not time); 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 Norm as Tested Skin: Normal Color, Warm/Dry Focused Exam Lactate Level 11/13/21 11:59: Lactic Acid Level 1.81 Lactic Acid Level Laboratory Tests Test 11/13/21 11:59 Lactic Acid Level 1.81 MMOL/L (0.50-2.00) Procedures/Interventions Date of ETT Placement: Oct 21, 2021 Suture Size: 4-0 Progress/Results/Core Measures Suspected Sepsis SIRS Temperature: Pulse: Respiratory Rate: Laboratory Tests 11/13/21 11:59: White Blood Count 16.0H Blood Pressure / Mean: 11/13/21 11:59: Lactic Acid Level 1.81 Laboratory Tests 11/13/21 11:59: Creatinine 1.13, INR Comment 1.2, Platelet Count 316, Total Bilirubin 0.5 Results/Orders Lab Results Laboratory Tests Test 11/13/21 11:58 11/13/21 11:59 11/13/21 12:05 Range/Units Pro-B-Type Natriuretic Peptide 72588.0 H <75.0 PG/ML White Blood Count 16.0 H 4.3-11.0 10^3/uL Red Blood Count 2.78 L 3.80-5.11 10^6/uL Hemoglobin 7.8 L 11.5-16.0 g/dL Hematocrit 24 L 35-52 % Mean Corpuscular Volume 85 80-99 fL Mean Corpuscular Hemoglobin 28 25-34 pg Mean Corpuscular Hemoglobin Concent 33 32-36 g/dL Red Cell Distribution Width 18.3 H 10.0-14.5 % Platelet Count 316 130-400 10^3/uL Mean Platelet Volume 10.8 9.0-12.2 fL Immature Granulocyte % (Auto) 5 % Neutrophils (%) (Auto) 72 42-75 % Lymphocytes (%) (Auto) 17 12-44 % Monocytes (%) (Auto) 5 0-12 % Eosinophils (%) (Auto) 1 0-10 % Basophils (%) (Auto) 0 0-10 % Neutrophils # (Auto) 11.5 H 1.8-7.8 X 10^3 Lymphocytes # (Auto) 2.7 1.0-4.0 X 10^3 Monocytes # (Auto) 0.8 0.0-1.0 X 10^3 Eosinophils # (Auto) 0.1 0.0-0.3 10^3/uL Basophils # (Auto) 0.0 0.0-0.1 10^3/uL Immature Granulocyte # (Auto) 0.8 H 0.0-0.1 10^3/uL Neutrophils % (Manual) 76 % Lymphocytes % (Manual) 18 % Monocytes % (Manual) 5 % Eosinophils % (Manual) 1 % Polychromasia SLIGHT Hypochromasia MODERATE Prothrombin Time 16.0 H 12.2-14.7 SEC INR Comment 1.2 0.8-1.4 Activated Partial Thromboplast Time 41 H 24-35 SEC Sodium Level 139 135-145 MMOL/L Potassium Level 2.2 *L 3.6-5.0 MMOL/L Chloride Level 96 L 98-107 MMOL/L Carbon Dioxide Level 32 21-32 MMOL/L Anion Gap 11 5-14 MMOL/L Blood Urea Nitrogen 12 7-18 MG/DL Creatinine 1.13 0.60-1.30 MG/DL Estimat Glomerular Filtration Rate 48 BUN/Creatinine Ratio 11 Glucose Level 147 H 70-105 MG/DL Lactic Acid Level 1.81 0.50-2.00 MMOL/L Calcium Level 7.4 L 8.5-10.1 MG/DL Corrected Calcium 9.0 8.5-10.1 MG/DL Magnesium Level 1.1 *L 1.6-2.4 MG/DL Total Bilirubin 0.5 0.1-1.0 MG/DL Aspartate Amino Transf (AST/SGOT) 43 H 5-34 U/L Alanine Aminotransferase (ALT/SGPT) 10 0-55 U/L Alkaline Phosphatase 124 40-136 U/L Troponin I 8.74 *H <0.30 NG/ML C-Reactive Protein 19.47 H <0.50 MG/DL Total Protein 5.7 L 6.4-8.2 GM/DL Albumin 2.0 L 3.2-4.5 GM/DL Urine Color YELLOW Urine Clarity SLIGHLTY CLOUDY Urine pH 6.0 5-9 Urine Specific [place] 1.010 L 1.016-1.022 Urine Protein TRACE H NEGATIVE Urine Glucose (UA) 2+ H NEGATIVE Urine Ketones NEGATIVE NEGATIVE Urine Nitrite NEGATIVE NEGATIVE Urine Bilirubin NEGATIVE NEGATIVE Urine Urobilinogen 0.2 < = 1.0 MG/DL Urine Leukocyte Esterase 1+ H NEGATIVE Urine RBC (Auto) 1+ H NEGATIVE Urine RBC NONE /HPF Urine WBC TNTC H /HPF Urine Crystals NONE /LPF Urine Bacteria FEW H /HPF Urine Casts NONE /LPF Urine Mucus NEGATIVE /LPF Urine Yeast FEW H /HPF Urine Culture Indicated YES My Orders Orders - CANDY LE MD Monitor-Rhythm Ecg Trace Only (11/13/21 11:58) Ed Iv/Invasive Line Start (11/13/21 11:58) Cbc With Automated Diff (11/13/21 11:58) Comprehensive Metabolic Panel (11/13/21 11:58) Crp Fs (11/13/21 11:58) Troponin I Fs (11/13/21 11:58) Protime With Inr (11/13/21 11:58) Partial Thromboplastin Time (11/13/21 11:58) Ekg Tracing (11/13/21 11:58) Ns Iv 1000 Ml (Sodium Chloride 0.9%) (11/13/21 12:00) Blood Culture (11/13/21 11:58) Ua Culture If Indicated (11/13/21 11:58) Straight Cath For Spec.-Adult (11/13/21 11:58) Probnp Fs (11/13/21 11:58) Lactic Acid Analyzer (11/13/21 11:58) Ns Iv 1000 Ml (Sodium Chloride 0.9%) (11/13/21 11:58) O2 (11/13/21 11:58) Manual Differential (11/13/21 11:59) Urine Culture (11/13/21 12:05) Chest 1 View Ap/Pa Only (11/13/21 12:28) Magnesium (11/13/21 12:29) Meropenem (Merrem 1000 Mg) (11/13/21 12:41) Potassium Cl 10meq/50ml Ivpb (Kcl 10 Meq (11/13/21 12:41) Ns Iv 1000 Ml (Sodium Chloride 0.9%) (11/13/21 12:41) Magnesium 1 Gm/100 Ml Ivpb (Magnesium [place] (11/13/21 12:41) Ed Admission (Communication) (11/13/21 12:45) Vital Signs/I&O 11/13/21 11/13/21 11/13/21 11:50 12:34 13:17 Temp 36.6 36.6 Pulse 96 82 Resp 18 18 B/P (MAP) 88/32 (50) 86/47 Pulse Ox 96 94 O2 Delivery Nasal Cannula Nasal Cannula Nasal Cannula O2 Flow Rate 3.50 3.50 3.50 FiO2 96 Capillary Refill : Progress Note #1: Progress Note Obtain labs and blood cultures with lactic acid. Since she was hypotensive give IV fluids for hydration and help her pressure. Obtain urine by straight cath. Obtain electrocardiogram to look at her cardiac rhythm. Placed on cardiac telemetry monitoring and watch her heart rate and rhythm as well as blood pressure and vital signs. Differential diagnosis includes sepsis, pneumonia, UTI, ischemic bowel, bowel perforation Progress Note #2: Time: 12:38 Progress Note Advised of abnormal labs with patient having potassium of 2.2, troponin I of 8.7, CRP of 19.47, calcium 7.4. We will add on magnesium. Contact the nursing restaurant supervisor at [facility] to see if they have an ICU bed available and if so then will contact Dr. Jarquin for [facility] about admission. 1242 Dr. Jarquin accepted patient for admission to the ICU for [facility]. Will continue with IV fluids for pressure support and hydration. Supplement potassium and magnesium came back at 1.1 so we will supplement this as well. Will contact Dr. Mclaughlin for cardiology consult about the elevated troponin. Re start meropenem for UTI and sepsis criteria. [address] Mclaughlin for cardiology and he was made aware of the patient with findings for elevated troponin and non-STEMI. As she is already anticoagulated with Plavix and Lovenox I had deferred adding aspirin at this point. CXR does show some pulmonary vascular congestion but will defer lasix in favor of trying to help her blood pressure and potassium. Will likely need a vasopressor as well. ECG Initial ECG Impression Date: Nov 13, 2021 Initial ECG Impression Time: 12:16 Initial ECG Rate: 89 Initial ECG Rhythm: Normal Sinus Initial ECG Comparisson: Unchanged Comment Sinus rhythm with a heart rate of 89 bpm. There are PACs present. SC interval 176 ms. Nonspecific repolarization changes in the lateral leads. Prolonged QT interval of 438 ms and QTc interval [address] elevation. Appears similar to prior tracings. Diagnostic Imaging Diagonstic Imaging: Xray Plain Films/CT/US/NM/MRI: chest Comments [facility]. [place], [place] NAME: SOUMYA RIOS [facility] REC#: [id number] PT STATUS: REG ER : 1950 PHYSICIAN: CANDY LE MD ADMIT DATE: 11/13/21/ER FS Signed Date of Exam:11/13/21 CHEST 1 VIEW AP/PA ONLY INDICATION: Shortness of breath COMPARISON: 10/22/2021 TECHNIQUE: 2 radiographs of the chest dated 11/13/2021. FINDINGS: Previously noted endotracheal tube, enteric catheter, and right IJ central venous catheter are no longer visualized. The cardiac silhouette is mildly enlarged, though stable. Central pulmonary vascular congestion is present. Patchy opacities are identified throughout the bilateral lungs. These opacities have improved within the lung bases though have worsened within the upper lungs. No large-volume pleural effusion. No pneumothorax. Vascular calcifications within the aortic arch. No acute osseous abnormality. IMPRESSION: Shifting extensive bilateral pulmonary opacities is favored to relate to underlying pulmonary edema given shifting nature. Infectious etiology additional consideration. Persistent mild cardiomegaly with mild central pulmonary vascular congestion. Dictated by: Dictated on workstation # [id number] Dict: 11/13/21 1240 Trans: 11/13/21 1245 CVB [id number] Interpreted by: WM SCHREIBER MD Electronically signed by: WM SCHREIBER MD 11/13/21 1245 Departure Communication (Admissions) Time/Spoke to Admitting Phy: 12:42 d/w Dr. Jarquin for [facility] and she accepted to the ICU at [facility]. Will start potassium and magnesium here in the ED and give additional fluids. Will contact Dr. Mclaughlin for cardiology in regards to her elevated troponin and non-STEMI Time/Spoke to Consulting Phy: 12:[address] Mclaughlin from cardiology and made aware of the patient being admitted to ICU at [facility] with non-STEMI findings. Impression Primary Impression: Non-ST elevated myocardial infarction Additional Impressions: Cystitis without hematuria Sepsis Qualified Codes: A41.9 - Sepsis, unspecified organism Hypokalemia Hypomagnesemia Hypotension Qualified Codes: I95.9 - Hypotension, unspecified Disposition: 30 STILL A PATIENT Condition: Critical Admissions Decision to Admit Reason: Admit from ER (General) Decision to Admit/Date: Nov 13, 2021 Time/Decision to Admit Time: 12:42 Departure-Patient Inst. Referrals: MAYCOL CLAIRE MD (PCP/Family) Primary Care Physician CANDY LE MD Nov 13, 2021 12:16
[2021-11-13 12:23] LABS: BILIRUBIN,TOTAL 0.5 MG/DL (0.1-1.0); CALCIUM 7.4 MG/DL (8.5-10.1); CREATININE SERUM 1.13 MG/DL (0.60-1.30); TOTAL PROTEIN 5.7 GM/DL (6.4-8.2)
[2021-11-13 12:25] LABS: POTASSIUM 2.2 MMOL/L (3.6-5.0)
[2021-11-13 12:35] LABS: EOSINOPHILS % (MANUAL) 1 %; HYPOCHROMASIA MODERATE; LYMPHOCYTES % (MANUAL) 18 %; MONOCYTES % (MANUAL) 5 %; NEUTROPHILS % (MANUAL) 76 %; POLYCHROMASIA SLIGHT
[2021-11-13] MEDS ORDERED: MAGNESIUM 1 GM/100 ML IVPB 100 ML IV STA (12:41)
[2021-11-13] MEDS ORDERED: MEROPENEM 1,000 MG in NS (IVPB) 100 ML IV STA (12:41)
[2021-11-13] MEDS ORDERED: POTASSIUM CL 10MEQ/50ML IVPB 50 ML IV STA (12:41)
--- NOTE | 2021-11-13 12:45 | Diagnostic Imaging Report ---
INDICATION: Shortness of breath COMPARISON: 10/22/2021 TECHNIQUE: 2 radiographs of the chest dated 11/13/2021. FINDINGS: Previously noted endotracheal tube, enteric catheter, and right IJ central venous catheter are no longer visualized. The cardiac silhouette is mildly enlarged, though stable. Central pulmonary vascular congestion is present. Patchy opacities are identified throughout the bilateral lungs. These opacities have improved within the lung bases though have worsened within the upper lungs. No large-volume pleural effusion. No pneumothorax. Vascular calcifications within the aortic arch. No acute osseous abnormality. IMPRESSION: Shifting extensive bilateral pulmonary opacities is favored to relate to underlying pulmonary edema given shifting nature. Infectious etiology additional consideration. Persistent mild cardiomegaly with mild central pulmonary vascular congestion. Dictated by: Dictated on workstation # [id number]
[2021-11-13] MEDS ORDERED: morphine INJ 4 MG/ML 1 ML (VIAL/SYRINGE) IV PRN (14:15)
[2021-11-13] MEDS ORDERED: polyethylene glycoL POWDER 17 GM (MIRALAX) PACK PO PRN (14:15)
[2021-11-13] MEDS ORDERED: MEROPENEM 1,000 MG in NS (IVPB) 100 ML IV SCH (14:15)
[2021-11-13] MEDS ORDERED: VANCOMYCIN INJECTION 0.1 MG in NS (IVPB) 250 ML IV SCH (14:15)
[2021-11-13] MEDS ORDERED: ONDANSETRON 4 MG/2 ML (SDV) Z0FRAN IV PRN (14:15)
[2021-11-13] MEDS ORDERED: diphenhydrAMINE 25 MG TAB (BENADRYL) PO PRN (14:15)
[2021-11-13] MEDS ORDERED: BISACODYL 10 MG SUPP (DULCOLAX) PR PRN (14:15)
[2021-11-13] MEDS ORDERED: ACETAMINOPHEN 325 MG TABLET PO PRN (14:15)
[2021-11-13] MEDS ORDERED: ANTACID SUSP 30 ML UDC (MYLANTA) PO PRN (14:15)
[2021-11-13] MEDS ORDERED: MELATONIN 3 MG TABLET PO PRN (14:15)
[2021-11-13] MEDS ORDERED: diphenhydrAMINE 50 MG/ML INJ (BENADRYL) IVP PRN (14:15)
[2021-11-13] MEDS ORDERED: ENOXAPARIN 100 MG/1 ML (LOVENOX) SYR SC SCH (14:15)
[2021-11-13] MEDS ORDERED: MEROPENEM 500 MG/NS 100 ML IVPB IV SCH ×2 (14:30)
[2021-11-13] MEDS: RT-ALBUTEROL/IPRATROPIUM 3 ML (DUONEB) VIAL INH SCH ×2 (14:48→21:57)
[2021-11-13] MEDS ORDERED: VANCOMYCIN 2000 MG/NS 500 ML IVPB IV NR ×2 (15:00)
[2021-11-13] MEDS ORDERED: ENOXAPARIN 300 MG/3 ML (LOVENOX) MULTI-DOSE VIAL SQ SCH (15:00)
[2021-11-13] MEDS: NOREPINEPHRINE 8 MG/250 ML 250 ML IV SCH ×2 (15:13→22:16)
[2021-11-13] MEDS: inSUlin ASPART (NovoLOG) 1 UNIT/0.01 ML (CHARGE PER UNIT) SC SCH ×2 (15:49→20:56)
[2021-11-13 16:09] LABS: ABG BASE EXCESS 7.8 MMOL/L (-2.5-2.5); ABG OXYGEN SATURATION 84 % (94-100); ABG PCO2 49 MMHG (35-45); ABG PH 7.43 (7.37-7.43); ABG PO2 56 MMHG (79-93)
[2021-11-13 16:10] LABS: ALLENS TEST POSITIVE; PATIENT TEMP 36; VENTILATOR YES
[2021-11-13] MEDS: ENOXAPARIN 300 MG/3 ML (LOVENOX) MULTI-DOSE VIAL SQ SCH (16:44)
[2021-11-13] MEDS: MEROPENEM 500 MG/NS 100 ML IVPB IV SCH ×2 (17:45)
[2021-11-13 18:10] LABS: CALCIUM 6.6 MG/DL (8.5-10.1)
[2021-11-13 18:14] LABS: CREATININE SERUM 0.99 MG/DL (0.60-1.30)
[2021-11-13 18:15] LABS: POTASSIUM 2.2 MMOL/L (3.6-5.0)
[2021-11-13] MEDS ORDERED: ASPIRIN 81 MG CHEW (CHILDREN'S ASA) PO ONE (18:15)
[2021-11-13] MEDS ORDERED: CLOPIDOGREL 300 MG (PLAVIX) TABLET PO ONE ×2 (18:15→18:44)
--- NOTE | 2021-11-13 18:28 | Consultation-Cardiology ---
HPI-Cardiology Cardiology Consultation: Date of Consultation 11/13/2021 Date of Admission 11/13/2021 Attending Physician Katya Hernandez DO Admitting Physician Jayjay Rendon MD Consulting Physician EDEN ROSARIO JR, MD HPI: Time Seen by a Provider: 18:22 Chief Complaint: Reason for consultation: NSTEMI. At the pleasure of seeing Raul in the intensive care unit at [facility] in [place], [place] this evening. She has a history of coronary artery disease and follows with a smoking tobacco packing machine [facility] [place]. She has had several recent hospitalizations in our facility for pulmonary issues as well as sepsis. She was just discharged 3 days ago to [facility] in [place], [place]. She is somewhat confused at this point in time and I am not able to obtain a complete history from the patient. I did speak with the emergency room provider at [facility] earlier today and also with the patient's nurse and daughter. Apparently, this morning the patient was confused at the rehab facility. The staff at the facility checked a blood sugar and it was found be quite low and EMS was called and the patient was taken to the [facility] [place] emergency room. During her evaluation at the outside emergency room, she was found to have an elevated troponin level. At that point, the emergency room physician notified me that would the patient might be having an NSTEMI. She was subsequently transferred to our intensive care unit. A follow-up troponin level just came back and went from 8 at [facility] up to 23 here. She denies any chest discomfort or dyspnea. She denies paroxysmal nocturnal dyspnea, orthopnea, palpitations, lightheadedness, or syncope. She does have mild ankle edema. However, her answers may not be entirely reliable because she is somewhat confused. At first she did not know where she was but when I told her she was in [place], 3 minutes later I asked her again and she remembered we are in [place]. I did speak to her daughter on the telephone who is next of kin and verify that the patient is a full code and would want everything done. I advised the patient and her daughter that I recommend a cardiac catheterization. Furthermore, I recommend this be done this evening in light of the marked rise in the troponin level. Certain portions of this document may have been dictated utilizing voice recognition technology. Inherent to this technology, typographical and grammatical errors may exist. As much as I am diligent to identify and correct these mistakes, some errors may remain in the document. Review of Systems-Cardiology Review of Systems Other comments Not obtainable due to patient's altered mental status. ISI-Wrmcus-Chzarw Hx Patient Social History Marrital Status: Smoking Status: Current Everyday Smoker 2nd Hand Smoke Exposure: Yes Have you traveled recently?: No Alcohol Use?: No Tobacco type used: Cigarettes Immunizations Up To Date Tetanus Booster (TDap): Unknown Date of Influenza Vaccine: Sep 18, 2021 Past Medical History PMH As described under Assessment. Family Medical History Family Medical History: She reports her mother had CHF. Allergies and Home Medications Allergies Coded Allergies: Penicillins (Unverified Adverse Reaction, Unknown, 01/16/21) cephalexin (Unverified Adverse Reaction, Unknown, 01/16/21) ciprofloxacin (Unverified Adverse Reaction, Unknown, 01/16/21) erythromycin base (Unverified Adverse Reaction, Unknown, 01/16/21) Patient Home Medication List Home Medication List Reviewed: Yes Alprazolam (Alprazolam) 0.5 Mg Tablet, 0.5 MG PO TID PRN for ANXIETY Prescribed by: KATYA HERNANDEZ on 11/10/21938 Amitriptyline HCl (Amitriptyline HCl) 25 Mg Tablet, 25 MG PO HS Prescribed by: KATYA HERNANDEZ on 11/10/21938 Aspirin (Aspirin EC) 81 Mg Tablet.dr, 81 MG PO DAILY Prescribed by: KATYA HERNANDEZ on 11/10/21938 Atorvastatin Calcium (Atorvastatin Calcium) 80 Mg Tablet, 80 MG PO HS Prescribed by: KATYA HERNANDEZ on 11/10/21938 Budesonide/Formoterol Fumarate (Symbicort 160-4.5 Mcg Inhaler) 10.2 Gm Hfa.aer.ad, 2 PUFF INH BID Prescribed by: KATYA HERNANDEZ on 11/10/21938 Calcium Carbonate (Calcium) 600 Mg Tablet, 600 MG PO DAILY Prescribed by: KATYA HERNANDEZ on 11/10/21938 Clopidogrel Bisulfate (Clopidogrel) 75 Mg Tablet, 75 MG PO DAILY Prescribed by: KATYA HERNANDEZ on 11/10/21938 Dicyclomine HCl (Dicyclomine HCl) 10 Mg Capsule, 10 MG PO QIDACHS Prescribed by: KATYA HERNANDEZ on 11/10/21938 Empagliflozin (Jardiance) 10 Mg Tablet, 10 MG PO DAILY Prescribed by: KATYA HERNANDEZ on 11/10/21938 Enoxaparin Sodium (Enoxaparin Sodium) 40 Mg/0.4 Ml Syringe, 40 MG SC DAILY Prescribed by: KATYA HERNANDEZ on 11/10/21938 Gabapentin (Gabapentin) 400 Mg Capsule, 400 MG PO TID Prescribed by: KATYA HERNANDEZ on 11/10/21938 Hydrocodone/Acetaminophen (Hydrocodone-Acetamin 10-325 mg) 1 Each Tablet, 1 EA PO Q4H PRN for PAIN-MODERATE (5-7) Prescribed by: KATYA HERNANDEZ on 11/10/21938 Insulin NPH Human Isophane (Novolin N) 100 Unit/1 Ml Vial, 10 UNIT SQ TID Prescribed by: KATYA HERNANDEZ on 11/10/21938 Insulin Regular, Human (Novolin R) 100 Unit/1 Ml Vial, 10 UNIT SQ TID Prescribed by: KATYA HERNANDEZ on 11/10/21938 Ipratropium/Albuterol Sulfate (Iprat-Albut 0.5-3(2.5) mg/3 ml) 3 Ml Ampul.neb, 3 ML INH RTBID Prescribed by: KATYA HERNANDEZ on 11/10/21938 Levothyroxine Sodium (Levothyroxine Sodium) 88 Mcg Tablet, 88 MCG PO DAILY Prescribed by: KATYA HERNANDEZ on 11/10/21938 Gilbert-3/Dha/Epa/Fish Oil (Fish Oil 1,000 mg Softgel) 1 Each Capsule, 1 EACH PO DAILY Prescribed by: KATYA HERNANDEZ on 11/10/21938 Pantoprazole Sodium (Pantoprazole Sodium) 40 Mg Tablet.dr, 40 MG PO DAILY Prescribed by: KATYA HERNANDEZ on 11/10/21938 Polyethylene Glycol 3350 (Polyethylene Glycol 3350) 17 Gm Powd.pack, 8.5 GM PO BID Prescribed by: KATYA HERNANDEZ on 11/10/21938 Prednisone (Prednisone) 5 Mg Tablet, 5 MG PO DAILY Prescribed by: KATYA HERNANDEZ on 11/10/21938 Ropinirole HCl (Ropinirole HCl) 2 Mg Tablet, 4 MG PO HS Prescribed by: KATYA HERNANDEZ on 11/10/21938 Tizanidine HCl (Tizanidine HCl) 2 Mg Tablet, 2 MG PO TID PRN for MUSCLE SPASMS Prescribed by: KATYA HERNANDEZ on 11/10/21938 Torsemide (Torsemide) 20 Mg Tablet, 20 MG PO DAILY Prescribed by: KATYA HERNANDEZ on 11/10/21938 Exam Vital Signs Vital Signs Date Time Temp Pulse Resp B/P (MAP) Pulse Ox O2 Delivery O2 Flow Rate FiO2 11/13/21 18:00 89 17 93/48 100 Nasal Cannula 4.00 11/13/21 17:14 37.0 11/13/21 12:34 96 Physical Exam General: Alert. No acute distress. Well nourished and appears stated age. She is obese. Eye: Extraocular movements are intact. Conjunctivae are clear. There are no xanthelasma. HENT: Normocephalic. Atraumatic. Carotid pulsations 2/2 without bruits. Neck: Jugular venous pressure does not appear elevated. No thyromegaly appreciated. Respiratory: Lungs are clear to auscultation. Respirations are non-labored. Breath sounds are equal. Symmetrical chest wall expansion. Cardiovascular: Normal rate. Regular rhythm. No murmur. No gallop. Point of maximal impulse is not appear displaced. Good pulses equal in all extremities. No edema. Gastrointestinal: Soft. Normal bowel sounds. Skin: Skin turgor is normal. There is no pallor. Musculoskeletal: No kyphosis or scoliosis appreciated. Neurologic: Alert and oriented to person only. Cranial nerves 3-12 appear grossly intact. The patient has good motor tone strength in the upper and lower extremities bilaterally. Psychiatric: Cooperative but confused. She was having visual hallucinations thinking that her was in the room. Labs Laboratory Tests Test 11/13/21 11:58 11/13/21 11:59 11/13/21 12:05 11/13/21 15:29 Range/Units Pro-B-Type Natriuretic Peptide 53727.0 H <75.0 PG/ML White Blood Count 16.0 H 4.3-11.0 10^3/uL Red Blood Count 2.78 L 3.80-5.11 10^6/uL Hemoglobin 7.8 L 11.5-16.0 g/dL Hematocrit 24 L 35-52 % Mean Corpuscular Volume 85 80-99 fL Mean Corpuscular Hemoglobin 28 25-34 pg Mean Corpuscular Hemoglobin Concent 33 32-36 g/dL Red Cell Distribution Width 18.3 H 10.0-14.5 % Platelet Count 316 130-400 10^3/uL Mean Platelet Volume 10.8 9.0-12.2 fL Immature Granulocyte % (Auto) 5 % Neutrophils (%) (Auto) 72 42-75 % Lymphocytes (%) (Auto) 17 12-44 % Monocytes (%) (Auto) 5 0-12 % Eosinophils (%) (Auto) 1 0-10 % Basophils (%) (Auto) 0 0-10 % Neutrophils # (Auto) 11.5 H 1.8-7.8 X 10^3 Lymphocytes # (Auto) 2.7 1.0-4.0 X 10^3 Monocytes # (Auto) 0.8 0.0-1.0 X 10^3 Eosinophils # (Auto) 0.1 0.0-0.3 10^3/uL Basophils # (Auto) 0.0 0.0-0.1 10^3/uL Immature Granulocyte # (Auto) 0.8 H 0.0-0.1 10^3/uL Neutrophils % (Manual) 76 % Lymphocytes % (Manual) 18 % Monocytes % (Manual) 5 % Eosinophils % (Manual) 1 % Polychromasia SLIGHT Hypochromasia MODERATE Prothrombin Time 16.0 H 12.2-14.7 SEC INR Comment 1.2 0.8-1.4 Activated Partial Thromboplast Time 41 H 24-35 SEC Sodium Level 139 135-145 MMOL/L Potassium Level 2.2 *L 3.6-5.0 MMOL/L Chloride Level 96 L 98-107 MMOL/L Carbon Dioxide Level 32 21-32 MMOL/L Anion Gap 11 5-14 MMOL/L Blood Urea Nitrogen 12 7-18 MG/DL Creatinine 1.13 0.60-1.30 MG/DL Estimat Glomerular Filtration Rate 48 BUN/Creatinine Ratio 11 Glucose Level 147 H 70-105 MG/DL Lactic Acid Level 1.81 0.50-2.00 MMOL/L Calcium Level 7.4 L 8.5-10.1 MG/DL Corrected Calcium 9.0 8.5-10.1 MG/DL Magnesium Level 1.1 *L 1.6-2.4 MG/DL Total Bilirubin 0.5 0.1-1.0 MG/DL Aspartate Amino Transf (AST/SGOT) 43 H 5-34 U/L Alanine Aminotransferase (ALT/SGPT) 10 0-55 U/L Alkaline Phosphatase 124 40-136 U/L Troponin I 8.74 *H <0.30 NG/ML C-Reactive Protein 19.47 H <0.50 MG/DL Total Protein 5.7 L 6.4-8.2 GM/DL Albumin 2.0 L 3.2-4.5 GM/DL Urine Color YELLOW Urine Clarity SLIGHLTY CLOUDY Urine pH 6.0 5-9 Urine Specific Brickeys 1.010 L 1.016-1.022 Urine Protein TRACE H NEGATIVE Urine Glucose (UA) 2+ H NEGATIVE Urine Ketones NEGATIVE NEGATIVE Urine Nitrite NEGATIVE NEGATIVE Urine Bilirubin NEGATIVE NEGATIVE Urine Urobilinogen 0.2 < = 1.0 MG/DL Urine Leukocyte Esterase 1+ H NEGATIVE Urine RBC (Auto) 1+ H NEGATIVE Urine RBC NONE /HPF Urine WBC TNTC H /HPF Urine Crystals NONE /LPF Urine Bacteria FEW H /HPF Urine Casts NONE /LPF Urine Mucus NEGATIVE /LPF Urine Yeast FEW H /HPF Urine Culture Indicated YES Glucometer 100 70-110 MG/DL Test 11/13/21 16:06 11/13/21 16:40 11/13/21 18:03 Range/Units Blood Gas Puncture Site RIGHT RADIAL Blood Gas Patient Temperature 36 Arterial Blood pH 7.43 7.37-7.43 Arterial Blood Partial Pressure CO2 49 H 35-45 MMHG Arterial Blood Partial Pressure O2 56 L 79-93 MMHG Arterial Blood HCO3 32 H 23-27 MMOL/L Arterial Blood Total CO2 34.0 H 21.0-31.0 MMOL/L Arterial Blood Oxygen Saturation 84 L 94-100 % Arterial Blood Base Excess 7.8 H -2.5-2.5 MMOL/L Gonzalo Test POSITIVE Blood Gas Ventilator Setting YES Blood Gas Inspired Oxygen 3.50 Troponin I 22.789 *H <0.028 NG/ML Sodium Level 138 135-145 MMOL/L Potassium Level 2.2 *L 3.6-5.0 MMOL/L Chloride Level 101 98-107 MMOL/L Carbon Dioxide Level 24 21-32 MMOL/L Anion Gap 13 5-14 MMOL/L Blood Urea Nitrogen 10 7-18 MG/DL Creatinine 0.99 0.60-1.30 MG/DL Estimat Glomerular Filtration Rate 55 BUN/Creatinine Ratio 10 Glucose Level 105 70-105 MG/DL Calcium Level 6.6 L 8.5-10.1 MG/DL ECG Impression ECG Comment Sinus rhythm with nonspecific intraventricular conduction delay and diffuse, nonspecific ST-T wave changes. Diagnosis/Problems Diagnosis/Problems (1) Non-ST elevation myocardial infarction (NSTEMI), initial episode of care Assessment & Plan: She appears to be suffering a non-ST elevation myocardial infarction with marked rise in the troponin level with no noncardiac explanation for this. On the other hand, she is not having any symptoms but is also diabetic and presently is confused. I am concerned that if we just continue with medical therapy, she could have a significant myocardial infarction that could result in complications. As such, I recommend further evaluation with an urgent cardiac catheterization. I have spoken with the patient's daughter, Suzi, and explained the benefits and risks of the procedure to her daughter. Her daughter is currently next of kin and his consented for the procedure. (2) Shock Assessment & Plan: Her systolic blood pressure is presently 70 mmHg. She is being treated for sepsis with intravenous antibiotics. Unclear whether or not there could be some component of cardiogenic shock on top of septic shock. I have asked the nurse to start dopamine infusion. (3) Hypokalemia Status: Acute Assessment & Plan: She has severe hypokalemia. She received 20 mEq of intravenous potassium in the outside emergency room. Her potassium level is still quite low. I have ordered an additional 40 mEq of potassium to be given intravenously now. Exact etiology of the hypokalemia is not clear. (4) Mixed hyperlipidemia Assessment & Plan: I will resume high-dose statin that she was taking at home. (5) Type 2 diabetes mellitus with complication Assessment & Plan: This will be managed by the hospitalist. (6) Obesity Assessment & Plan: She needs to be encouraged to work on weight loss. (7) Cigarette smoker Assessment & Plan: She is presently in a correction facility and cannot smoke cigarettes. But she was smoking up until her most recent hospitalization earlier in the week. She needs to be encouraged to quit smoking. EDEN ROSARIO JR, MD Nov 13, 2021 18:27
[2021-11-13] MEDS ORDERED: NS IV 1000 ML 1,000 ML IV ONE (18:30)
[2021-11-13] MEDS ORDERED: DOPamine DRIP 250 ML IV ONE (18:34)
[2021-11-13] MEDS ORDERED: ASPIRIN 81 MG CHEW (CHILDREN'S ASA) ONE (18:44)
[2021-11-13] MEDS ORDERED: DOPamine DRIP 250 ML IV SCH (18:45)
--- NOTE | 2021-11-13 18:50 | Pre-Op Note & Conscious Sedat ---
Pre-Operative Progress Note H&P Reviewed The H&P was reviewed, patient examined and no changes noted. Date H&P Reviewed: Nov 13, 2021 Time H&P Reviewed: 18:50 Pre-Op Diagnosis: Non-ST elevation myocardial infarction Conscious Sedation Pre-Proced ASA Score 3 For ASA 3 and 4: Consider anesthesia and medical clearance. Also, for patients with a history of failed moderate sedation consider anesthesia. Airway Lungs Heart ASA score ASA 1: a normal healthy patient ASA 2: a patient with a mild systemic disease (mid diabetes, controlled hypertension, obesity ASA 3: a patient with a severe systemic disease that limits activity (angina, COPD, prior Myocardial infarction) ASA 4: a patient with an incapacitating disease that is a constant threat to life (CHF, renal failure) ASA 5: a moribund patient not expected to survive 24 hrs. (ruptured aneurysm) ASA 6: a declared brain- patient whose organs are being harvested. For emergent operations, add the letter E after the classification Mallampati Classification Grade 3 Sedation Plan Analgesia, Amnesia, Plan communicated to team members, Discussed options with patient/fam, Discussed risks with patient/fam The patient is an appropriate candidate to undergo the planned procedure, sedation, and anesthesia. The patient immediately re-assessed prior to indication. EDEN ROSARIO JR, MD Nov 13, 2021 18:50
[2021-11-13] MEDS ORDERED: POTASSIUM CL 10MEQ/50ML IVPB 200 ML IV ONE (18:53)
[2021-11-13] MEDS ORDERED: MAGNESIUM 1 GM/100 ML IVPB 200 ML IV ONE (18:53)
[2021-11-13] MEDS ORDERED: VERAPAMIL 5 MG/2 ML (CALAN) VIAL IV ONE (18:57)
[2021-11-13] MEDS ORDERED: NITRO DRIP 25000 MCG/D5W 0 ML IV ONE (18:58)
[2021-11-13] MEDS: POTASSIUM CL 10MEQ/50ML IVPB 50 ML IV SCH ×6 (18:58→23:28)
[2021-11-13] MEDS ORDERED: HEParin 1000 UNIT/ML (10ML VIAL) FOR BOLUS ONE (18:58)
[2021-11-13] MEDS ORDERED: NS IV 1000 ML 0 ML ONE (18:58)
[2021-11-13] MEDS ORDERED: HEParin (CATH LAB) 2,000 ML IV ONE (18:58)
[2021-11-13] MEDS ORDERED: LIDOCAINE 1% INJ 20 ML 20 ML VIAL ONE (18:58)
[2021-11-13] MEDS ORDERED: MIDAZOLAM 5 MG/5 ML (VERSED) VIAL ONE (18:59)
[2021-11-13] MEDS ORDERED: fentaNYL INJ 100 MCG/2 ML AMP ONE (18:59)
[2021-11-13] MEDS ORDERED: MAGNESIUM 2 GM/50 ML IVPB 50 ML IV ONE (20:15)
--- NOTE | 2021-11-13 20:17 | Cardiac Cath Report ---
CARDIAC CATHETERIZATION DATE OF PROCEDURE: 11/13/2021 INDICATION: Non-ST elevation myocardial infarction. HISTORY: The patient is a 58 year old female with a known history of coronary artery disease with previous drug-eluting stent in an unknown vessel at an outside facility in 2019. She presented to an outside emergency room earlier today due to altered mental status. She was felt to be in sepsis. During her evaluation, a troponin level was drawn which was elevated at 8. The patient was subsequently transferred to our intensive care unit for further treatment. A follow-up troponin this evening was 22. The patient was denying chest discomfort or dyspnea. However, she was fairly confused. As such, in light of the rising troponin level without another plausible noncardiac cause, she is now referred for further evaluation with a cardiac catheterization. PROCEDURES PERFORMED: 1. Left heart catheterization with hemodynamic measurements. 2. Diagnostic [place] coronary angiography. PROCEDURE DESCRIPTION: After informed consent and in the fasting state, left heart catheterization was performed through the right femoral artery utilizing a 6 Macedonian system by percutaneous approach. I did first attempt to gain access to the right radial artery but could not locate the vessel with a micropuncture needle. I then used ultrasound to localize the radial artery but I could not find any arterial flow in the vicinity of the radial artery. Therefore, the right radial approach was aborted. Standard Tyson catheters were utilized for the diagnostic portion of the procedure. All catheters were exchanged over a guidewire. Following the coronary angiography the right femoral angiogram was performed which showed the sheath to enter above the bifurcation. The right superficial femoral artery appeared to be occluded at the bifurcation. A Mynx closure device was deployed in the right femoral artery with good hemostasis. RESULTS: HEMODYNAMICS: The aortic pressure was 108/49 mmHg. The left ventricular pressure was 123/5 mmHg with a left ventricular end-diastolic pressure of 21 mmHg. There was no significant pressure gradient upon pullback across the aortic valve. CORONARY ANGIOGRAPHY: The coronary arteries were heavily calcified. Left main coronary artery: Diffusely diseased but no more than 30% stenotic. Left anterior descending coronary artery: There was an eccentric 50% stenosis in the proximal segment and the distal vessel was small and diffusely diseased. There was a very small second diagonal branch that contained a 90% stenosis proximally but this was a proximally 1.5 mm vessel and would be too small for intervention. Left circumflex coronary artery: Small but free of any significant focal disease. Right coronary artery: Very large in caliber and dominant. There was a very eccentric 80% stenosis proximally with BENITA-3 flow. There appeared to be a long stent in the mid segment which contained mild neointimal hyperplasia at no more than 20% stenotic. There was a 70% stenosis distally right at the bifurcation of the posterior descending artery and posterolateral branches with BENITA-3 flow. This was a bifurcation lesion with a Wilson classification of 1, 0, 0. IMPRESSION: 1. Systemic hypertension with elevated left ventricular end-diastolic pressure. 2. All 3 coronary arteries are diffusely calcified. 3. There was moderate disease of the proximal left anterior descending coronary artery with an eccentric 50% stenosis. 4. There was severe disease of the proximal and distal right coronary artery with a probable patent stent in the mid segment but no thrombotic occlusions to explain the acute myocardial infarction. 5. The patient was previously known to have normal left ventricular systolic function with an estimated ejection fraction of 55-60% by echocardiogram that was obtained on 10/22/2021. 6. These findings coupled with the elevated troponin level are consistent with a type II non-ST elevation myocardial infarction due to supply/demand mismatch possibly being caused by sepsis and her metabolic derangements. Certain portions of this document may have been dictated utilizing voice recognition technology. Inherent to this technology, typographical and grammatical errors may exist. As much as I am diligent to identify and correct these mistakes, some errors may remain in the document. EDEN ROSARIO JR, MD Nov 13, 2021 20:17
[2021-11-13] MEDS: HYDROCORTISONE 100 MG/2 ML (Solu-CORTEF) VIAL IV SCH (20:56)
[2021-11-13] MEDS ORDERED: KCL 20 MEQ TAB (K-DUR) PO ONE ×2 (22:15→22:34)
[2021-11-13] MEDS ORDERED: BUMETANIDE 1 MG/4 ML (BUMEX) VIAL IV ONE (22:15)
[2021-11-13] MEDS ORDERED: SPIRONOLACTONE 25 MG (ALDACTONE) TAB PO ONE (22:15)
--- NOTE | 2021-11-13 22:17 | Tele-ICU Progress Note ---
Progress Note Patient becoming hypotensive and hypxic. 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 Cardiology already notified, orders to change dopamine to levophed placed and about to be initiated. SpO2 previously 100% on 4L, now in the 80s despite increasing O2. During assessment, developed pink from the mouth and nose. - Stat CXR - bumex 0.5 mg - spironolactone 25 mg PO x1 to further promote diuresis without further potassium loss - BiPap for preload reduction. - K replacement ongoing, with limited IV access. Has about 6 hours left on 80 meq replacement. Will add 40 meq PO potassium. CVL ordered and surgeon notified. Current plan to place in AM. Focused Exam Lactate Level 11/13/21 11:59: Lactic Acid Level 1.81 Height, Weight, BMI Height: '" Weight: lbs. oz. kg; 36.80 BMI Method: BRANDON SOTELO MD Nov 13, 2021 22:16
[2021-11-13] MEDS ORDERED: BUMETANIDE 1 MG/4 ML (BUMEX) VIAL ONE (22:19)
[2021-11-13] MEDS ORDERED: SPIRONOLACTONE 25 MG (ALDACTONE) TAB ONE (22:34)
--- NOTE | 2021-11-13 22:48 | Diagnostic Imaging Report ---
INDICATION: Forney frothy secretions. Respiratory distress. EXAMINATION: Portable supine chest at 10:36 p.m. FINDINGS: The heart is stable in size when compared to the exam performed earlier today at 12:34 PM. As on the previous study, there are diffuse alveolar/interstitial pulmonary infiltrates involving both upper lobes and both perihilar regions with relative sparing of the lung bases. These findings do not seem to have changed significantly since the prior exam. There is still no pleural effusion identified. The mediastinum is not widened. The osseous structures are intact. IMPRESSION: There is persistent cardiomegaly and diffuse alveolar/interstitial pulmonary infiltrates bilaterally. These abnormal parenchymal densities may be secondary to pneumonia/atelectasis, pulmonary edema or a combination of all three. Overall, there does not appear to have been any significant change since the prior exam. A follow-up study would be recommended for continued evaluation. Dictated by: Dictated on workstation # [id number]
[2021-11-14] MEDS: MEROPENEM 500 MG/NS 100 ML IVPB IV SCH ×8 (00:28→17:07)
[2021-11-14] MEDS: POTASSIUM CL 10MEQ/50ML IVPB 50 ML IV SCH ×3 (02:11→06:24)
[2021-11-14] MEDS: ENOXAPARIN 300 MG/3 ML (LOVENOX) MULTI-DOSE VIAL SQ SCH ×2 (02:57→16:36)
[2021-11-14] MEDS: RT-ALBUTEROL/IPRATROPIUM 3 ML (DUONEB) VIAL INH SCH ×6 (03:21→22:59)
[2021-11-14 05:57] LABS: BASOPHILS # (AUTO) 0.1 10^3/uL (0.0-0.1); BASOPHILS % (AUTO) 0 % (0-10); EOSINOPHILS # (AUTO) 0.2 10^3/uL (0.0-0.3); EOSINOPHILS % (AUTO) 1 % (0-10); HEMATOCRIT 23 % (35-52); HEMOGLOBIN 7.5 g/dL (11.5-16.0); LYMPHOCYTES # (AUTO) 1.9 10^3/uL (1.0-4.0); LYMPHOCYTES % (AUTO) 11 % (12-44); MEAN CORPUSCULAR HEMOGLOBIN 27 pg (25-34); MEAN CORPUSCULAR HGB CONC 32 g/dL (32-36); MEAN CORPUSCULAR VOLUME 85 fL (80-99); MEAN PLATELET VOLUME 10.9 fL (9.0-12.2); MONOCYTES % (AUTO) 6 % (0-12); NEUTROPHILS # (AUTO) 12.8 10^3/uL (1.8-7.8); NEUTROPHILS % (AUTO) 76 % (42-75); PLATELET COUNT 311 10^3/uL (130-400); WHITE BLOOD COUNT 16.9 10^3/uL (4.3-11.0)
[2021-11-14 06:17] LABS: ALBUMIN 2.1 GM/DL (3.2-4.5); POTASSIUM 3.1 MMOL/L (3.6-5.0)
[2021-11-14 06:18] LABS: CALCIUM 7.3 MG/DL (8.5-10.1)
[2021-11-14 06:19] LABS: TOTAL PROTEIN 5.6 GM/DL (6.4-8.2)
[2021-11-14 06:21] LABS: BILIRUBIN,TOTAL 0.6 MG/DL (0.1-1.0)
[2021-11-14 06:22] LABS: PHOSPHORUS 3.4 MG/DL (2.3-4.7)
[2021-11-14 06:23] LABS: CREATININE SERUM 1.17 MG/DL (0.60-1.30)
[2021-11-14] MEDS: KCL 20 MEQ TAB (K-DUR) PO SCH (06:25)
[2021-11-14 06:26] LABS: MAGNESIUM 1.6 MG/DL (1.6-2.4)
[2021-11-14] MEDS: HYDROCORTISONE 100 MG/2 ML (Solu-CORTEF) VIAL IV SCH ×3 (06:30→22:56)
[2021-11-14] MEDS: inSUlin ASPART (NovoLOG) 1 UNIT/0.01 ML (CHARGE PER UNIT) SC SCH ×4 (06:31→20:18)
[2021-11-14] MEDS: MAGNESIUM 1 GM/100 ML IVPB 100 ML IV SCH ×3 (06:37→11:32)
--- NOTE | 2021-11-14 07:00 | History & Physical-Hospitalist ---
History of Present Illness HPI/Chief Complaint Chief complaint: Severe sepsis History of present illness: This is a 71-year-old white female known to me from 2 prior hospital stays recently, both in the ICU with the first due to ischemic bowel status post resection with intubation and extubation then readmission for severe sepsis from UTI/pneumonia/colitis discharged to [facility] Daily Khan is recovering from fracture. She has severe COPD and continues to smoke and she has severe comorbidities that have added up the last 3 weeks. She presented with elevated troponin continue to increase catheterization by Revealing small vessel disease and no non-STEMI. UTI noted so placed on meropenem and vancomycin along with IV fluid resuscitation and pressor therapy. Hydrocortisone initiated due to prednisone dependent state high risk for adrenal insufficiency. Currently she is doing much better and denies any pain. Source: patient, RN/MD, old records Exam Limitations: no limitations Date Seen 11/14/21 Time Seen by a Provider: 11:00 Attending Physician Katya Hernandez Pankaj K MD Referring Physician Date of Admission Nov 13, 2021 at 13:57 Home Medications & Allergies Home Medications Reviewed patient Home Medication Reconciliation performed by pharmacy medication reconciliations atmospheric technician and/or nursing. Patients Allergies have been reviewed. Allergies Allergies Coded Allergies Penicillins (Unverified Adverse Reaction, Unknown, 01/16/21) cephalexin (Unverified Adverse Reaction, Unknown, 01/16/21) ciprofloxacin (Unverified Adverse Reaction, Unknown, 01/16/21) erythromycin base (Unverified Adverse Reaction, Unknown, 01/16/21) Past Knuvnin-Ohlkzy-Gqojdi Hx Patient Social History Marrital Status: Employed/Student: retired Tobacco Use?: Yes Tobacco type used: Cigarettes Smoking Status: Current Everyday Smoker Substance use?: No Alcohol Use?: No Immunizations Up To Date Date of Influenza Vaccine: Sep 18, 2021 First/Initial COVID19 Vaccinat: unknown but did recieve Second COVID19 Vaccination Lon: unknown but did recieve Tetanus Booster (TDap): Unknown Seasonal Allergies Seasonal Allergies: No Current Status Advance Directives: No Communicates: Verbally Primary Language: Fijian Preferred Spoken Language: Fijian Is interpretation needed?: No Sensory deficits: Vision impairment Implanted or Applied Medical D: None Past Medical History Surgeries: Abdominal (Ischemic bowel resection 10/2021 Dr. FERNANDEZ), Bladder Surgery, Gallbladder, Joint Replacement, Orthopedic COPD Heart Attack, High Cholesterol, Hypertension, Peripheral Vascular Bladder Infection Gastroesophageal Reflux Arthritis Hypothyroidsim, Diabetes, Non-Insulin dep Anxiety Blood Disorders: No PMHx: Congestive heart failure Coronary artery disease with stenting Ischemic bowel requiring resection COPD Diabetes SurgHx: Bowel resection for ischemic colitis Coronary artery stenting Review of Systems Constitutional: see HPI, dizziness, malaise, weakness EENTM: no symptoms reported Respiratory: no symptoms reported Cardiovascular: no symptoms reported Gastrointestinal: no symptoms reported Genitourinary: decreased output Musculoskeletal: back pain Skin: no symptoms reported Psychiatric/Neurological: No Symptoms Reported All Other Systems Reviewed Negative Unless Noted: Yes Physical Exam Physical Exam Vital Signs Vital Signs - First Documented 11/13/21 11/13/21 11:50 12:34 Temp 36.6 Pulse 96 Resp 18 B/P (MAP) 88/32 (50) Pulse Ox 96 O2 Delivery Nasal Cannula O2 Flow Rate 3.50 FiO2 96 Capillary Refill : Less Than 3 Seconds Height, Weight, BMI Height: '" Weight: lbs. oz. kg; 36.80 BMI Method: General Appearance: No Apparent Distress, Chronically ill, Obese Eyes: Right Eye Normal Inspection, Right Eye PERRL HEENT: PERRL/EOMI, Normal ENT Inspection, Pharynx Normal, Moist Mucous Membranes Neck: Full Range of Motion, Normal Inspection, Non Tender Respiratory: Chest Non Tender, Lungs Clear, No Accessory Muscle Use, No Respiratory Distress, Decreased Breath Sounds Cardiovascular: Regular Rate, Rhythm, No Edema, No Gallop, No JVD, No Murmur, Normal Peripheral Pulses Gastrointestinal: Normal Bowel Sounds, No Organomegaly, No Pulsatile Mass, Non Tender, Soft Back: Normal Inspection, No CVA Tenderness, No Vertebral Tenderness Extremity: Normal Capillary Refill, Normal Inspection, Normal Range of Motion, Non Tender, No Calf Tenderness, No Pedal Edema Neurologic/Psychiatric: Alert, Oriented x3, No Motor/Sensory Deficits, Normal Mood/Affect Skin: Normal Color, Warm/Dry Lymphatic: No Adenopathy Results Results/Procedures Labs Laboratory Tests 11/13/21 11:59 11/13/21 18:03 11/14/21 05:10 Patient resulted labs reviewed. Assessment/Plan Admission Diagnosis Assessment: Severe sepsis Status post ischemic colitis status post ex lap with resection of terminal ileum and right hemicolon with anastomosis on 10/21/[address] FERNANDEZ UTI complicated time CAD History of [facility] Elevated troponin but cardiac cath showing small vessel disease no STEMI COPD with continued smoking Advanced age Anemia Plan: Meropenem Vancomycin IV fluids Levophed ICU monitoring Patient becoming more more declined Admission Status: Inpatient Order (span 2 midnights) Reason for Inpatient Admission: Severe sepsis Diagnosis/Problems Diagnosis/Problems (1) Severe sepsis (2) UTI (urinary tract infection) Status: Acute Resolution Date/Time: 10/28/21 @ 16:06 (3) Lactic acid acidosis Status: Resolved Resolution Date/Time: 11/04/21 @ 14:18 (4) Hypoxia Status: Acute (5) [id number] kidney injury Status: Resolved Resolution Date/Time: 11/07/21 @ 10:59 (6) CAD (coronary artery disease) Status: Chronic (7) COPD (chronic obstructive pulmonary disease) Status: Chronic (8) Diabetes Status: Chronic (9) CHF (congestive heart failure) Status: Chronic (10) DVT prophylaxis Status: Acute (11) Dehydration Status: Resolved Resolution Date/Time: 11/04/21 @ 14:20 KATYA HERNANDEZ DO Nov 14, 2021 07:00
[2021-11-14] MEDS ORDERED: KCL 20 MEQ TAB (K-DUR) PO ONE ×2 (08:00→10:00)
[2021-11-14] MEDS ORDERED: ASPIRIN E.C. 81 MG (ECOTRIN) TAB PO SCH (09:00)
--- NOTE | 2021-11-14 09:00 | Cardiology Progress Note ---
Progress Note-Cardiology Events since last exam Date Seen by Provider: Nov 14, 2021 Time Seen by Provider: 08:53 Events since last exam I am following her due to non-ST elevation myocardial infarction. She remains in the intensive care unit on intravenous norepinephrine due to shock. She is much more awake and alert this morning. Her daughter is at the bedside. The patient denies chest discomfort, dyspnea, palpitations, syncope, or ankle edema. Certain portions of this document may have been dictated utilizing voice recognition technology. Inherent to this technology, typographical and grammatical errors may exist. As much as I am diligent to identify and correct these mistakes, some errors may remain in the document. Vitals Last set of Vitals Signs Vital Signs 11/13/21 11/14/21 11/14/21 11/14/21 12:34 07:41 08:00 08:08 Temp 37.0 Pulse 86 Resp 21 B/P (MAP) 119/71 Pulse Ox 98 O2 Delivery Nasal Cannula O2 Flow Rate 2.00 FiO2 96 Labs Labs Laboratory Tests 11/13/21 11:59 11/13/21 18:03 11/14/21 05:10 Exam Vital Signs Vital Signs Date Time Temp Pulse Resp B/P (MAP) Pulse Ox O2 Delivery O2 Flow Rate FiO2 11/14/21 08:08 98 Nasal Cannula 2.00 11/14/21 08:00 86 21 119/71 11/14/21 07:41 37.0 11/13/21 12:34 96 Physical Exam General: Alert. No acute distress. She is obese. Eye: No xanthelasma. HENT: Normocephalic. Neck: Jugular venous pressure does not appear elevated. Respiratory: Lungs are clear to auscultation but decreased breath sounds at the bases bilaterally. Respirations are non-labored. Breath sounds are equal. Symmetrical chest wall expansion. Cardiovascular: Normal rate. Regular rhythm. No murmur. No gallop. No edema. Gastrointestinal: Soft. Normal bowel sounds. Skin: Warm. Dry. Neurologic: Alert and oriented to person, place, time. Cranial nerves 3-11 grossly intact. Psychiatric: Cooperative. Appropriate mood & affect. Labs Laboratory Tests Test 11/13/21 11:58 11/13/21 11:59 11/13/21 12:05 11/13/21 15:29 Range/Units Pro-B-Type Natriuretic Peptide 87589.0 H <75.0 PG/ML White Blood Count 16.0 H 4.3-11.0 10^3/uL Red Blood Count 2.78 L 3.80-5.11 10^6/uL Hemoglobin 7.8 L 11.5-16.0 g/dL Hematocrit 24 L 35-52 % Mean Corpuscular Volume 85 80-99 fL Mean Corpuscular Hemoglobin 28 25-34 pg Mean Corpuscular Hemoglobin Concent 33 32-36 g/dL Red Cell Distribution Width 18.3 H 10.0-14.5 % Platelet Count 316 130-400 10^3/uL Mean Platelet Volume 10.8 9.0-12.2 fL Immature Granulocyte % (Auto) 5 % Neutrophils (%) (Auto) 72 42-75 % Lymphocytes (%) (Auto) 17 12-44 % Monocytes (%) (Auto) 5 0-12 % Eosinophils (%) (Auto) 1 0-10 % Basophils (%) (Auto) 0 0-10 % Neutrophils # (Auto) 11.5 H 1.8-7.8 X 10^3 Lymphocytes # (Auto) 2.7 1.0-4.0 X 10^3 Monocytes # (Auto) 0.8 0.0-1.0 X 10^3 Eosinophils # (Auto) 0.1 0.0-0.3 10^3/uL Basophils # (Auto) 0.0 0.0-0.1 10^3/uL Immature Granulocyte # (Auto) 0.8 H 0.0-0.1 10^3/uL Neutrophils % (Manual) 76 % Lymphocytes % (Manual) 18 % Monocytes % (Manual) 5 % Eosinophils % (Manual) 1 % Polychromasia SLIGHT Hypochromasia MODERATE Prothrombin Time 16.0 H 12.2-14.7 SEC INR Comment 1.2 0.8-1.4 Activated Partial Thromboplast Time 41 H 24-35 SEC Sodium Level 139 135-145 MMOL/L Potassium Level 2.2 *L 3.6-5.0 MMOL/L Chloride Level 96 L 98-107 MMOL/L Carbon Dioxide Level 32 21-32 MMOL/L Anion Gap 11 5-14 MMOL/L Blood Urea Nitrogen 12 7-18 MG/DL Creatinine 1.13 0.60-1.30 MG/DL Estimat Glomerular Filtration Rate 48 BUN/Creatinine Ratio 11 Glucose Level 147 H 70-105 MG/DL Lactic Acid Level 1.81 0.50-2.00 MMOL/L Calcium Level 7.4 L 8.5-10.1 MG/DL Corrected Calcium 9.0 8.5-10.1 MG/DL Magnesium Level 1.1 *L 1.6-2.4 MG/DL Total Bilirubin 0.5 0.1-1.0 MG/DL Aspartate Amino Transf (AST/SGOT) 43 H 5-34 U/L Alanine Aminotransferase (ALT/SGPT) 10 0-55 U/L Alkaline Phosphatase 124 40-136 U/L Troponin I 8.74 *H <0.30 NG/ML C-Reactive Protein 19.47 H <0.50 MG/DL Total Protein 5.7 L 6.4-8.2 GM/DL Albumin 2.0 L 3.2-4.5 GM/DL Urine Color YELLOW Urine Clarity SLIGHLTY CLOUDY Urine pH 6.0 5-9 Urine Specific [place] 1.010 L 1.016-1.022 Urine Protein TRACE H NEGATIVE Urine Glucose (UA) 2+ H NEGATIVE Urine Ketones NEGATIVE NEGATIVE Urine Nitrite NEGATIVE NEGATIVE Urine Bilirubin NEGATIVE NEGATIVE Urine Urobilinogen 0.2 < = 1.0 MG/DL Urine Leukocyte Esterase 1+ H NEGATIVE Urine RBC (Auto) 1+ H NEGATIVE Urine RBC NONE /HPF Urine WBC TNTC H /HPF Urine Crystals NONE /LPF Urine Bacteria FEW H /HPF Urine Casts NONE /LPF Urine Mucus NEGATIVE /LPF Urine Yeast FEW H /HPF Urine Culture Indicated YES Glucometer 100 70-110 MG/DL Test 11/13/21 16:06 11/13/21 16:40 11/13/21 18:03 11/13/21 20:53 Range/Units Blood Gas Puncture Site RIGHT RADIAL Blood Gas Patient Temperature 36 Arterial Blood pH 7.43 7.37-7.43 Arterial Blood Partial Pressure CO2 49 H 35-45 MMHG Arterial Blood Partial Pressure O2 56 L 79-93 MMHG Arterial Blood HCO3 32 H 23-27 MMOL/L Arterial Blood Total CO2 34.0 H 21.0-31.0 MMOL/L Arterial Blood Oxygen Saturation 84 L 94-100 % Arterial Blood Base Excess 7.8 H -2.5-2.5 MMOL/L Gonzalo Test POSITIVE Blood Gas Ventilator Setting YES Blood Gas Inspired Oxygen 3.50 Troponin I 22.789 *H <0.028 NG/ML Sodium Level 138 135-145 MMOL/L Potassium Level 2.2 *L 3.6-5.0 MMOL/L Chloride Level 101 98-107 MMOL/L Carbon Dioxide Level 24 21-32 MMOL/L Anion Gap 13 5-14 MMOL/L Blood Urea Nitrogen 10 7-18 MG/DL Creatinine 0.99 0.60-1.30 MG/DL Estimat Glomerular Filtration Rate 55 BUN/Creatinine Ratio 10 Glucose Level 105 70-105 MG/DL Calcium Level 6.6 L 8.5-10.1 MG/DL Glucometer 140 H 70-110 MG/DL Test 11/13/21 22:28 11/14/21 01:51 11/14/21 03:56 11/14/21 05:10 Range/Units Troponin I 17.745 *H 11.341 *H <0.028 NG/ML Glucometer 187 H 182 H 70-110 MG/DL White Blood Count 16.9 H 4.3-11.0 10^3/uL Red Blood Count 2.77 L 3.80-5.11 10^6/uL Hemoglobin 7.5 L 11.5-16.0 g/dL Hematocrit 23 L 35-52 % Mean Corpuscular Volume 85 80-99 fL Mean Corpuscular Hemoglobin 27 25-34 pg Mean Corpuscular Hemoglobin Concent 32 32-36 g/dL Red Cell Distribution Width 18.2 H 10.0-14.5 % Platelet Count 311 130-400 10^3/uL Mean Platelet Volume 10.9 9.0-12.2 fL Immature Granulocyte % (Auto) 6 % Neutrophils (%) (Auto) 76 H 42-75 % Lymphocytes (%) (Auto) 11 L 12-44 % Monocytes (%) (Auto) 6 0-12 % Eosinophils (%) (Auto) 1 0-10 % Basophils (%) (Auto) 0 0-10 % Neutrophils # (Auto) 12.8 H 1.8-7.8 10^3/uL Lymphocytes # (Auto) 1.9 1.0-4.0 10^3/uL Monocytes # (Auto) 1.0 0.0-1.0 10^3/uL Eosinophils # (Auto) 0.2 0.0-0.3 10^3/uL Basophils # (Auto) 0.1 0.0-0.1 10^3/uL Immature Granulocyte # (Auto) 1.0 H 0.0-0.1 10^3/uL Sodium Level 137 135-145 MMOL/L Potassium Level 3.1 L 3.6-5.0 MMOL/L Chloride Level 98 98-107 MMOL/L Carbon Dioxide Level 23 21-32 MMOL/L Anion Gap 16 H 5-14 MMOL/L Blood Urea Nitrogen 12 7-18 MG/DL Creatinine 1.17 0.60-1.30 MG/DL Estimat Glomerular Filtration Rate 46 BUN/Creatinine Ratio 10 Glucose Level 168 H 70-105 MG/DL Calcium Level 7.3 L 8.5-10.1 MG/DL Corrected Calcium 8.8 8.5-10.1 MG/DL Phosphorus Level 3.4 2.3-4.7 MG/DL Magnesium Level 1.6 1.6-2.4 MG/DL Total Bilirubin 0.6 0.1-1.0 MG/DL Aspartate Amino Transf (AST/SGOT) 65 H 5-34 U/L Alanine Aminotransferase (ALT/SGPT) 13 0-55 U/L Alkaline Phosphatase 126 40-136 U/L Total Protein 5.6 L 6.4-8.2 GM/DL Albumin 2.1 L 3.2-4.5 GM/DL Diagnosis/Problems Diagnosis/Problems (1) Non-ST elevation myocardial infarction (NSTEMI), initial episode of care Assessment & Plan: She appears to have suffered a non-ST elevation myocardial infarction with marked rise in the troponin level with no noncardiac explanation for this. Based upon the findings of her cardiac catheterization, I suspect she had a type II non-ST elevation due to supply/demand mismatch. She does have significant disease of the right coronary artery that no acute thrombotic occlusion. Therefore, I recommend we continue her on the present medical therapy. I would continue enoxaparin for a full 4 days. She may need high risk intervention to the right coronary artery but this would most likely require some sort of atherectomy which we do not presently offer at this hospital. She may need to discuss this with her regular magazine publisher after discharge. She should continue on aspirin, clopidogrel and high-dose statin medication. No b eta-keerthi due to persistent shock. (2) Acute on chronic heart failure with preserved ejection fraction (HFpEF) Assessment & Plan: Her chest x-ray from admission shows possible pulmonary edema. I will obtain a follow-up chest x-ray this morning. She may need some diuretic. Given her current shock, if she does need diuretic, I would plan on a furosemide infusion which will help prevent worsening of her shock. (3) Shock Assessment & Plan: She is presently on norepinephrine infusion due to persistent shock. I suspect this may be primarily septic shock. Echocardiogram from this morning is pending. (4) Peripheral arterial disease Assessment & Plan: At the time of her cardiac catheterization she was found to have total occlusion of the right superficial femoral artery. She was not aware of having peripheral arterial disease. She will need to have this followed by her primary magazine publisher at the outside facility after discharge. There are presently no signs of acute limb ischemia. (5) Mixed hyperlipidemia Assessment & Plan: Continue high-dose statin medication. I have added a lipid panel to blood sample obtained this morning. (6) Hypokalemia Status: Acute Assessment & Plan: Etiology unclear. She is receiving replacement therapy. (7) Stage 3 chronic kidney disease Assessment & Plan: We need to watch her renal function closely in light of the multiple acute issues. (8) Type 2 diabetes mellitus with complication Assessment & Plan: This will be managed by the hospitalist. (9) Obesity Assessment & Plan: She needs to be encouraged to work on weight loss. (10) Cigarette smoker Assessment & Plan: She is presently in a longterm facility and cannot smoke cigarettes. But she was smoking up until her most recent hospitalization earlier in the week. She needs to be encouraged to quit smoking. EDEN ROSARIO JR, MD Nov 14, 2021 09:00
[2021-11-14 09:11] LABS: TRIGLYCERIDES 143 MG/DL (<150); VLDL CHOLESTEROL 29 MG/DL (5-40)
[2021-11-14 09:16] LABS: CHOLESTEROL 117 MG/DL (< 200)
[2021-11-14 09:17] LABS: HDL CHOLESTEROL 36 MG/DL (40-60)
[2021-11-14] MEDS: ASPIRIN 81 MG CHEW (CHILDREN'S ASA) PO SCH (09:31)
--- NOTE | 2021-11-14 10:40 | Consultation - Surgery ---
NATHAN JACKSON [facility] 11/14/21 1040: History of Present Illness History of Present Illness Patient Consulted On(raúl/time) 11/14/21 10:34 Date Seen by Provider: Nov 14, 2021 Time Seen by Provider: 10:10 Reason for Visit: Consult for Central Line History of Present Illness General surgery consulted for central line. Indication receiving a vasopressor. This is a 71 yo female that was seen at [facility] and had elevated troponins. Patient was transferred to [place] ED, diagnosed with NSTEMI requiring cardiac cath. Patient was hypotensive during her initial encounter and has been receiving a peripheral infusion of norepinephrine. Patient is currently taking Lovenox and Aspirin. Received a dose of clopidegrel yesterday. Platelet count is 311. Denies Fevers, chills, shortness of breath Allergies and Home Medications Allergies Coded Allergies: Penicillins (Unverified Adverse Reaction, Unknown, 01/16/21) cephalexin (Unverified Adverse Reaction, Unknown, 01/16/21) ciprofloxacin (Unverified Adverse Reaction, Unknown, 01/16/21) erythromycin base (Unverified Adverse Reaction, Unknown, 01/16/21) Patient Home Medication List Home Medication List Reviewed: Yes Alprazolam (Alprazolam) 0.5 Mg Tablet, 0.5 MG PO TID PRN for ANXIETY Prescribed by: DAVEY JARQUIN on 11/10/21938 Amitriptyline HCl (Amitriptyline HCl) 25 Mg Tablet, 25 MG PO HS Prescribed by: DAVEY JARQUIN on 11/10/21938 Aspirin (Aspirin EC) 81 Mg Tablet.dr, 81 MG PO DAILY Prescribed by: DAVEY JARQUIN on 11/10/21938 Atorvastatin Calcium (Atorvastatin Calcium) 80 Mg Tablet, 80 MG PO HS Prescribed by: DAVEY JARQUIN on 11/10/21938 Budesonide/Formoterol Fumarate (Symbicort 160-4.5 Mcg Inhaler) 10.2 Gm Hfa.aer.ad, 2 PUFF INH BID Prescribed by: DAVEY JARQUIN on 11/10/21938 Calcium Carbonate (Calcium) 600 Mg Tablet, 600 MG PO DAILY Prescribed by: DAVEY JARQUIN on 11/10/21938 Clopidogrel Bisulfate (Clopidogrel) 75 Mg Tablet, 75 MG PO DAILY Prescribed by: DAVEY JARQUIN on 11/10/21938 Dicyclomine HCl (Dicyclomine HCl) 10 Mg Capsule, 10 MG PO QIDACHS Prescribed by: DAVEY JARQUIN on 11/10/21938 Empagliflozin (Jardiance) 10 Mg Tablet, 10 MG PO DAILY Prescribed by: DAVEY JARQUIN on 11/10/21938 Enoxaparin Sodium (Enoxaparin Sodium) 40 Mg/0.4 Ml Syringe, 40 MG SC DAILY Prescribed by: DAVEY JARQUIN on 11/10/21938 Gabapentin (Gabapentin) 400 Mg Capsule, 400 MG PO TID Prescribed by: DAVEY JARQUIN on 11/10/21938 Hydrocodone/Acetaminophen (Hydrocodone-Acetamin 10-325 mg) 1 Each Tablet, 1 EA PO Q4H PRN for PAIN-MODERATE (5-7) Prescribed by: DAVEY JARQUIN on 11/10/21938 Insulin NPH Human Isophane (Novolin N) 100 Unit/1 Ml Vial, 10 UNIT SQ TID Prescribed by: DAVEY JARQUIN on 11/10/21938 Insulin Regular, Human (Novolin R) 100 Unit/1 Ml Vial, 10 UNIT SQ TID Prescribed by: DAVEY JARQUIN on 11/10/21938 Ipratropium/Albuterol Sulfate (Iprat-Albut 0.5-3(2.5) mg/3 ml) 3 Ml Ampul.neb, 3 ML INH RTBID Prescribed by: DAVEY JARQUIN on 11/10/21938 Levothyroxine Sodium (Levothyroxine Sodium) 88 Mcg Tablet, 88 MCG PO DAILY Prescribed by: DAVEY JARQUIN on 11/10/21938 Seco-3/Dha/Epa/Fish Oil (Fish Oil 1,000 mg Softgel) 1 Each Capsule, 1 EACH PO DAILY Prescribed by: DAVEY JARQUIN on 11/10/21938 Pantoprazole Sodium (Pantoprazole Sodium) 40 Mg Tablet.dr, 40 MG PO DAILY Prescribed by: DAVEY JARQUIN on 11/10/21938 Polyethylene Glycol 3350 (Polyethylene Glycol 3350) 17 Gm Powd.pack, 8.5 GM PO BID Prescribed by: DAVEY JARQUIN on 11/10/21938 Prednisone (Prednisone) 5 Mg Tablet, 5 MG PO DAILY Prescribed by: DAVEY JARQUIN on 11/10/21938 Ropinirole HCl (Ropinirole HCl) 2 Mg Tablet, 4 MG PO HS Prescribed by: DAVEY JARQUIN on 11/10/21938 Tizanidine HCl (Tizanidine HCl) 2 Mg Tablet, 2 MG PO TID PRN for MUSCLE SPASMS Prescribed by: DAVEY JARQUIN on 11/10/21938 Torsemide (Torsemide) 20 Mg Tablet, 20 MG PO DAILY Prescribed by: DAVEY JARQUIN on 11/10/21938 Past Estuuba-Ehibfs-Vavujk Hx Patient Social History Smoking Status: Current Everyday Smoker Type Used: Cigarettes 2nd Hand Smoke Exposure: Yes Recent Hopitalizations: No Alcohol Use?: No Have you traveled recently?: No Immunizations Up To Date Tetanus Booster (TDap): Unknown Date of Influenza Vaccine: Sep 18, 2021 Seasonal Allergies Seasonal Allergies: No Surgeries History of Surgeries: Yes (Bilat knee arthroscopy, L TKR, Bladder suspension, Pituitary tumor exc) Surgeries: Bladder Surgery, Gallbladder, Joint Replacement, Orthopedic Respiratory History of Respiratory Disorde: Yes (Tobaccoism) Respiratory Disorders: COPD Cardiovascular History of Cardiac Disorders: Yes Cardiac Disorders: Heart Attack, High Cholesterol, Hypertension, Peripheral Vascular Neurological History of Neurological Disord: No Genitourinary History of Genitourinary Disor: Yes (Bladder suspension for incont) Genitourinary Disorders: Bladder Infection Gastrointestinal History of Gastrointestinal Di: Yes (EGD/Colonoscopy; 4 ulcers) Gastrointestinal Disorders: Gastroesophageal Reflux Musculoskeletal History of Musculoskeletal Dis: Yes Musculoskeletal Disorders: Arthritis Endocrine History of Endocrine Disorders: Yes Endocrine Disorders: Hypothyroidsim, Diabetes, Non-Insulin dep HEENT History of HEENT Disorders: No Cancer History of Cancer: No Psychosocial History of Psychiatric Problem: Yes Behavioral Health Disorders: Anxiety Integumentary History of Skin or Integumenta: No (thin skin with numerous skin tears/ecchymosis) Blood Transfusions History of Blood Disorders: No Review of Systems-General Constitutional: No chills, No fever Respiratory: short of breath (Receiving O2) Cardiovascular: No chest pain Physical Exam-General Problems Physical Exam Vital Signs Vital Signs - First Documented 11/13/21 11/13/21 11:50 12:34 Temp 36.6 Pulse 96 Resp 18 B/P (MAP) 88/32 (50) Pulse Ox 96 O2 Delivery Nasal Cannula O2 Flow Rate 3.50 FiO2 96 Capillary Refill : Less Than 3 Seconds General Appearance: no apparent distress, obese Eyes: Bilateral Eye PERRL, Bilateral Eye EOMI HEENT: PERRL/EOMI, normal ENT inspection Neck: supple, normal inspection Respiratory: no respiratory distress, no accessory muscle use, other (Nasal cannula in appropriate position) Cardiovascular: regular rate, rhythm Peripheral Pulses: 2+ Radial Pulses (R), 2+ Radial Pulses (L) Gastrointestinal: non tender, soft Extremities: no calf tenderness Neurologic/Psychiatric: alert, oriented x 3 Data Review Labs Laboratory Tests 11/13/21 11:58: Pro-B-Type Natriuretic Peptide 47387.0H 11/13/21 11:59: White Blood Count 16.0H, Red Blood Count 2.78L, Hemoglobin 7.8L, Hematocrit 24L, Mean Corpuscular Volume 85, Mean Corpuscular Hemoglobin 28, Mean Corpuscular Hemoglobin Concent 33, Red Cell Distribution Width 18.3H, Platelet Count 316, Mean Platelet Volume 10.8, Immature Granulocyte % (Auto) 5, Neutrophils (%) (Auto) 72, Lymphocytes (%) (Auto) 17, Monocytes (%) (Auto) 5, Eosinophils (%) (Auto) 1, Basophils (%) (Auto) 0, Neutrophils # (Auto) 11.5H, Lymphocytes # (Auto) 2.7, Monocytes # (Auto) 0.8, Eosinophils # (Auto) 0.1, Basophils # (Auto) 0.0, Immature Granulocyte # (Auto) 0.8H, Neutrophils % (Manual) 76, Lymphocytes % (Manual) 18, Monocytes % (Manual) 5, Eosinophils % (Manual) 1, Polychromasia SLIGHT, Hypochromasia MODERATE, Prothrombin Time 16.0H, INR Comment 1.2, Activated Partial Thromboplast Time 41H, Sodium Level 139, Potassium Level 2.2*L , Chloride Level 96L, Carbon Dioxide Level 32, Anion Gap 11, Blood Urea Nitrogen 12, Creatinine 1.13, Estimat Glomerular Filtration Rate 48, BUN/Creatinine Ratio 11, Glucose Level 147H, Lactic Acid Level 1.81, Calcium Level 7.4L, Corrected Calcium 9.0, Magnesium Level 1.1*L, Total Bilirubin 0.5, Aspartate Amino Transf (AST/SGOT) 43H, Alanine Aminotransferase (ALT/SGPT) 10, Alkaline Phosphatase 124, Troponin I 8.74*H, C-Reactive Protein 19.47H, Total Protein 5.7L, Albumin 2.0L 11/13/21 12:05: Urine Color YELLOW, Urine Clarity SLIGHLTY CLOUDY, Urine pH 6.0, Urine Specific North 1.010L, Urine Protein TRACEH, Urine Glucose (UA) 2+H, Urine Ketones NEGATIVE, Urine Nitrite NEGATIVE, Urine Bilirubin NEGATIVE, Urine Urobilinogen 0.2, Urine Leukocyte Esterase 1+H, Urine RBC (Auto) 1+H, Urine RBC NONE, Urine WBC TNTCH, Urine Crystals NONE, Urine Bacteria FEWH, Urine Casts NONE, Urine Mucus NEGATIVE, Urine Yeast FEWH, Urine Culture Indicated YES 11/13/21 15:29: Glucometer 100 11/13/21 16:06: Blood Gas Puncture Site RIGHT RADIAL, Blood Gas Patient Temperature 36, Arterial Blood pH 7.43, Arterial Blood Partial Pressure CO2 49H, Arterial Blood Partial Pressure O2 56L, Arterial Blood HCO3 32H, Arterial Blood Total CO2 34.0H, Arterial Blood Oxygen Saturation 84L, Arterial Blood Base Excess 7.8H, Gonzalo Test POSITIVE, Blood Gas Ventilator Setting YES, Blood Gas Inspired Oxygen 3.50 11/13/21 16:40: Troponin I 22.789*H 11/13/21 18:03: Sodium Level 138, Potassium Level 2.2*L, Chloride Level 101, Carbon Dioxide Level 24, Anion Gap 13, Blood Urea Nitrogen 10, Creatinine 0.99, Estimat Glome rular Filtration Rate 55, BUN/Creatinine Ratio 10, Glucose Level 105, Calcium Level 6.6L 11/13/21 20:53: Glucometer 140H 11/13/21 22:28: Troponin I 17.745*H 11/14/21 01:51: Glucometer 187H 11/14/21 03:56: Glucometer 182H 11/14/21 05:10: Troponin I 11.341*H, White Blood Count 16.9H, Red Blood Count 2.77L, Hemoglobin 7.5L, Hematocrit 23L, Mean Corpuscular Volume 85, Mean Corpuscular Hemoglobin 27, Mean Corpuscular Hemoglobin Concent 32, Red Cell Distribution Width 18.2H, Platelet Count 311, Mean Platelet Volume 10.9, Immature Granulocyte % (Auto) 6, Neutrophils (%) (Auto) 76H, Lymphocytes (%) (Auto) 11L, Monocytes (%) (Auto) 6, Eosinophils (%) (Auto) 1, Basophils (%) (Auto) 0, Neutrophils # (Auto) 12.8H, Lymphocytes # (Auto) 1.9, Monocytes # (Auto) 1.0, Eosinophils # (Auto) 0.2, Basophils # (Auto) 0.1, Immature Granulocyte # (Auto) 1.0H, Sodium Level 137, Potassium Level 3.1L, Chloride Level 98, Carbon Dioxide Level 23, Anion Gap 16H, Blood Urea Nitrogen 12, Creatinine 1.17, Estimat Glomerular Filtration Rate 46, BUN/Creatinine Ratio 10, Glucose Level 168H, Calcium Level 7.3L, Corrected Calcium 8.8, Phosphorus Level 3.4, Magnesium Level 1.6, Total Bilirubin 0.6, Aspartate Amino Transf (AST/SGOT) 65H, Alanine Aminotransferase (ALT/SGPT) 13, Alkaline Phosphatase 126, Total Protein 5.6L, Albumin 2.1L, Triglycerides Level 143, Cholesterol Level 117, LDL Cholesterol Direct 48, VLDL Cholesterol 29, HDL Cholesterol 36L Assessment/Plan Assessment/Plan Assessment/Plan Shock - Requiring vassopressors - Peripheral IV infusion converted to IJ central line by general surgery - Difficult management as patient is also experiencing acute on chronic heart failure NSTEMI - followed by cardiology and primary team MARCOS LOZANO DO 11/14/21 1151: History of Present Illness History of Present Illness History of Present Illness Counts requested for central line placement. Patient is a 71-year-old female who had altered mental function at outside rehab facility. Patient was found to be hypoglycemic and was transferred to the emergency department from that facility. Patient was found to have a elevated troponin and transferred to the ICU here. Patient had increase in her troponin so she went to the [facility] for cardiac catheterization. Patient is requiring pressors and only has peripheral access at this time. Patient needing central line placement for multiple medication use. Patient is pleasant. Laying in bed. No significant plaints at this time. Denies any nausea vomiting fever sweats chills shortness of breath or chest pain. Allergies and Home Medications Allergies Coded Allergies: Penicillins (Unverified Adverse Reaction, Unknown, 01/16/21) cephalexin (Unverified Adverse Reaction, Unknown, 01/16/21) ciprofloxacin (Unverified Adverse Reaction, Unknown, 01/16/21) erythromycin base (Unverified Adverse Reaction, Unknown, 01/16/21) Patient Home Medication List Home Medication List Reviewed: Yes Alprazolam (Alprazolam) 0.5 Mg Tablet, 0.5 MG PO TID PRN for ANXIETY Prescribed by: DAVEY JARQUIN on 11/10/21938 Amitriptyline HCl (Amitriptyline HCl) 25 Mg Tablet, 25 MG PO HS Prescribed by: DAVEY JARQUIN on 11/10/21938 Aspirin (Aspirin EC) 81 Mg Tablet.dr, 81 MG PO DAILY Prescribed by: DAVEY JARQUIN on 11/10/21938 Atorvastatin Calcium (Atorvastatin Calcium) 80 Mg Tablet, 80 MG PO HS Prescribed by: DAVEY JARQUIN on 11/10/21938 Budesonide/Formoterol Fumarate (Symbicort 160-4.5 Mcg Inhaler) 10.2 Gm Hfa.aer.ad, 2 PUFF INH BID Prescribed by: DAVEY JARQUIN on 11/10/21938 Calcium Carbonate (Calcium) 600 Mg Tablet, 600 MG PO DAILY Prescribed by: DAVEY JARQUIN on 11/10/21938 Clopidogrel Bisulfate (Clopidogrel) 75 Mg Tablet, 75 MG PO DAILY Prescribed by: DAVEY JARQUIN on 11/10/21938 Dicyclomine HCl (Dicyclomine HCl) 10 Mg Capsule, 10 MG PO QIDACHS Prescribed by: DAVEY JARQUIN on 11/10/21938 Empagliflozin (Jardiance) 10 Mg Tablet, 10 MG PO DAILY Prescribed by: DAVEY JARQUIN on 11/10/21938 Enoxaparin Sodium (Enoxaparin Sodium) 40 Mg/0.4 Ml Syringe, 40 MG SC DAILY Prescribed by: DAVEY JARQUIN on 11/10/21938 Gabapentin (Gabapentin) 400 Mg Capsule, 400 MG PO TID Prescribed by: DAVEY JARQUIN on 11/10/21938 Hydrocodone/Acetaminophen (Hydrocodone-Acetamin 10-325 mg) 1 Each Tablet, 1 EA PO Q4H PRN for PAIN-MODERATE (5-7) Prescribed by: DAVEY JARQUIN on 11/10/21938 Insulin NPH Human Isophane (Novolin N) 100 Unit/1 Ml Vial, 10 UNIT SQ TID Prescribed by: DAVEY JARQUIN on 11/10/21938 Insulin Regular, Human (Novolin R) 100 Unit/1 Ml Vial, 10 UNIT SQ TID Prescribed by: DAVEY JARQUIN on 11/10/21938 Ipratropium/Albuterol Sulfate (Iprat-Albut 0.5-3(2.5) mg/3 ml) 3 Ml Ampul.neb, 3 ML INH RTBID Prescribed by: DAVEY JARQUIN on 11/10/21938 Levothyroxine Sodium (Levothyroxine Sodium) 88 Mcg Tablet, 88 MCG PO DAILY Prescribed by: DAVEY JARQUIN on 11/10/21938 Seco-3/Dha/Epa/Fish Oil (Fish Oil 1,000 mg Softgel) 1 Each Capsule, 1 EACH PO DAILY Prescribed by: DAVEY JARQUIN on 11/10/21938 Pantoprazole Sodium (Pantoprazole Sodium) 40 Mg Tablet.dr, 40 MG PO DAILY Prescribed by: DAVEY JARQUIN on 11/10/21938 Polyethylene Glycol 3350 (Polyethylene Glycol 3350) 17 Gm Powd.pack, 8.5 GM PO BID Prescribed by: DAVEY JARQUIN on 11/10/21938 Prednisone (Prednisone) 5 Mg Tablet, 5 MG PO DAILY Prescribed by: DAVEY JARQUIN on 11/10/21938 Ropinirole HCl (Ropinirole HCl) 2 Mg Tablet, 4 MG PO HS Prescribed by: DAVEY JARQUIN on 11/10/21938 Tizanidine HCl (Tizanidine HCl) 2 Mg Tablet, 2 MG PO TID PRN for MUSCLE SPASMS Prescribed by: DAVEY JARQUIN on 11/10/21938 Torsemide (Torsemide) 20 Mg Tablet, 20 MG PO DAILY Prescribed by: DAVEY JARQUIN on 11/10/21938 Past Zbjvssp-Uzgort-Cdattm Hx Reviewed Nursing Assessment Reviewed/Agree w Nursing PMH: Yes Family Medical History Significant Family History: No Pertinent Family Hx Review of Systems-General Constitutional: No chills, No fever EENTM: No blurred vision, No double vision Respiratory: No dyspnea on exertion, No short of breath Cardiovascular: No chest pain, No palpitations Gastrointestinal: No abdominal pain, No nausea, No vomiting Genitourinary: No decreased output, No discharge Musculoskeletal: No back pain, No joint pain Skin: change in color; No change in hair/nails Psychiatric/Neurological: Denies Anxiety, Denies Depressed, Denies Emotional Problems All Other Systems Reviewed Negative Unless Noted: Yes (Negative excepted noted.) Physical Exam-General Problems Physical Exam General Appearance: WD/WN, no apparent distress, obese HEENT: PERRL/EOMI, normal ENT inspection Neck: supple, normal inspection Respiratory: chest non-tender, no respiratory distress, no accessory muscle use, other (Nasal cannula) Cardiovascular: regular rate, rhythm Gastrointestinal: non tender, soft Rectal: deferred Back: no CVA tenderness, no vertebral tenderness Extremities: non-tender, no calf tenderness Neurologic/Psychiatric: alert, normal mood/affect, oriented x 3 Skin: ecchymosis (Multiple areas) Lymphatic: no adenopathy Assessment/Plan Assessment/Plan Assessment/Plan Poor venous access NSTEMI Shock possible likely from septic shock Requiring Levophed for pressure support. Patient has peripheral lines will place central line. Risk and benefits were discussed with patient family and patient. To be placed. Chest x-ray following. Will sign off please call if needed. Procedure: u/s guided right IJ central line placement and right radial u/s guided arterial line placement. Right neck was prepped and draped in sterile fashion. U/s was used to identify anatomy. 3 mL 1% lidocaine was used anesthetize the right neck. The right IJ was accessed and dark nonpulsatile blood drawn back. Wire was inserted and needle was removed. 11 blade was used to make skin incision at insertion point. Dilator was advance and removed. Triple lumen catheter was inserted and wire was removed. The catheter was secured and all ports accessed and flushed. Sterile bandage applied. Chest x ray pending. Supervisory-Addendum Brief Verification & Attestation Participated in pt care: history, MDM, physical Personally performed: exam, history, MDM, supervision of care Care discussed with: Medical Student Procedures: n/a Results interpretation: Verified all documentation Verification and Attestation of Medical Student E/M Service A medical student performed and documented this service in my presence. I reviewed and verified all information documented by the medical student and made modifications to such information, when appropriate. I personally performed the physical exam and medical decision making. Marcos Lozano, Nov 14, 2021,11:54 NATHAN JACKSON Nov 14, 2021 10:40 MARCOS LOZANO DO Nov 14, 2021 11:51
--- NOTE | 2021-11-14 11:07 | Diagnostic Imaging Report ---
EXAMINATION: Chest 1 view HISTORY: Shortness of breath COMPARISON: 11/13/2021 FINDINGS: Heart size and pulmonary vasculature are normal. There are diffuse patchy interstitial opacities throughout both lungs. A right IJ central line is present with tip projecting over the SVC. No pleural effusion or pneumothorax. The osseous structures are intact. IMPRESSION: 1. Diffuse patchy interstitial opacities throughout both lungs concerning for pulmonary edema or atypical infection. Dictated by: Dictated on workstation # [id number]
[2021-11-14] MEDS ORDERED: FUROSEMIDE 40 MG/4 ML INJ (LASIX) IVP NR (13:30)
--- NOTE | 2021-11-14 13:58 | Tele-ICU Consult ---
History of Present Illness History of Present Illness Date Seen by Provider: Nov 14, 2021 Time Seen by Provider: 13:56 Date of Admission Reason for Visit: Consult for Central Line Allergies and Home Medications Allergies Coded Allergies: Penicillins (Unverified Adverse Reaction, Unknown, 01/16/21) cephalexin (Unverified Adverse Reaction, Unknown, 01/16/21) ciprofloxacin (Unverified Adverse Reaction, Unknown, 01/16/21) erythromycin base (Unverified Adverse Reaction, Unknown, 01/16/21) Home Medications Alprazolam 0.5 Mg Tablet, 0.5 MG PO TID PRN for ANXIETY Prescribed by: DAVEY JARQUIN on 11/10/21938 Amitriptyline HCl 25 Mg Tablet, 25 MG PO HS Prescribed by: DAVEY JARQUIN on 11/10/21938 Aspirin 81 Mg Tablet.dr, 81 MG PO DAILY Prescribed by: DAVEY JARQUIN on 11/10/21938 Atorvastatin Calcium 80 Mg Tablet, 80 MG PO HS Prescribed by: DAVEY JARQUIN on 11/10/21938 Budesonide/Formoterol Fumarate 10.2 Gm Hfa.aer.ad, 2 PUFF INH BID Prescribed by: DAVEY JARQUIN on 11/10/21938 Calcium Carbonate 600 Mg Tablet, 600 MG PO DAILY Prescribed by: DAVEY JARQUIN on 11/10/21938 Clopidogrel Bisulfate 75 Mg Tablet, 75 MG PO DAILY Prescribed by: DAVEY JARQUIN on 11/10/21938 Dicyclomine HCl 10 Mg Capsule, 10 MG PO QIDACHS Prescribed by: DAVEY JARQUIN on 11/10/21938 Empagliflozin 10 Mg Tablet, 10 MG PO DAILY Prescribed by: DAVEY JARQUIN on 11/10/21938 Enoxaparin Sodium 40 Mg/0.4 Ml Syringe, 40 MG SC DAILY Prescribed by: DAVEY JARQUIN on 11/10/21938 Gabapentin 400 Mg Capsule, 400 MG PO TID Prescribed by: DAVEY JARQUIN on 11/10/21938 Hydrocodone/Acetaminophen 1 Each Tablet, 1 EA PO Q4H PRN for PAIN-MODERATE (5-7) Prescribed by: DAVEY JARQUIN on 11/10/21938 Insulin NPH Human Isophane 100 Unit/1 Ml Vial, 10 UNIT SQ TID Prescribed by: DAVEY JARQUIN on 11/10/21938 Insulin Regular, Human 100 Unit/1 Ml Vial, 10 UNIT SQ TID Prescribed by: DAVEY JARQUIN on 11/10/21938 Ipratropium/Albuterol Sulfate 3 Ml Ampul.neb, 3 ML INH RTBID Prescribed by: DAVEY JARQUIN on 11/10/21938 Levothyroxine Sodium 88 Mcg Tablet, 88 MCG PO DAILY Prescribed by: DAVYE JARQUIN on 11/10/21938 [place]-3/Dha/Epa/Fish Oil 1 Each Capsule, 1 EACH PO DAILY Prescribed by: DAVEY JARQUIN on 11/10/21938 Pantoprazole Sodium 40 Mg Tablet.dr, 40 MG PO DAILY Prescribed by: DAVEY JARQUIN on 11/10/21938 Polyethylene Glycol 3350 17 Gm Powd.pack, 8.5 GM PO BID Prescribed by: DAVEY JARQUIN on 11/10/21938 Prednisone 5 Mg Tablet, 5 MG PO DAILY Prescribed by: DAVEY JARQUIN on 11/10/21938 Ropinirole HCl 2 Mg Tablet, 4 MG PO HS TAKES 2 (2MG) TABS Prescribed by: DAVEY JARQUIN on 11/10/21938 Tizanidine HCl 2 Mg Tablet, 2 MG PO TID PRN for MUSCLE SPASMS Prescribed by: DAVEY JARQUIN on 11/10/21938 Torsemide 20 Mg Tablet, 20 MG PO DAILY Prescribed by: DAVEY JARQUIN on 11/10/21938 Past Medical/Social/Family Hx Patient Social History Marrital Status: Tobacco Use?: Yes Tobacco type used: Cigarettes Smoking Status: Current Everyday Smoker Substance use?: No Alcohol Use?: No Immunizations Up To Date Influenza Vaccine Up-to-Date: Yes; Up-to-Date First/Initial COVID19 Vaccinat: unknown but did recieve Second COVID19 Vaccination Lon: unknown but did recieve Tetanus Booster (TDap): Unknown Current Status Advance Directives: No Communicates: Verbally Primary Language: Fijian Preferred Spoken Language: Fijian Is interpretation needed?: No Sensory deficits: Vision impairment Implanted or Applied Medical D: None Past Medical History PMHx: Congestive heart failure Coronary artery disease with stenting Ischemic bowel requiring resection COPD Diabetes SurgHx: Bowel resection for ischemic colitis Coronary artery stenting Review of Systems Constitutional: chills Focused Exam Lactate Level 11/13/21 11:59: Lactic Acid Level 1.81 Height, Weight, BMI Height: '" Weight: lbs. oz. kg; 36.80 BMI Method: Exam Exam Patient acknowledged, consented, and participated in this virtual visit which was conducted using real time audio/video Vital Signs Date Time Temp Pulse Resp B/P (MAP) Pulse Ox O2 Delivery O2 Flow Rate FiO2 11/14/21 13:30 93 14 124/88 100 Nasal Cannula 2.00 11/14/21 12:56 93 11/14/21 12:37 37.2 11/14/21 12:00 93 Nasal Cannula 2.00 11/14/21 12:00 94 29 115/76 90 Nasal Cannula 2.00 11/14/21 11:20 96 Nasal Cannula 2.00 11/14/21 11:00 95 17 122/75 89 Nasal Cannula 2.00 11/14/21 10:00 92 15 115/60 91 Nasal Cannula 2.00 11/14/21 09:00 93 26 114/55 99 Nasal Cannula 2.00 11/14/21 08:08 98 Nasal Cannula 2.00 11/14/21 08:00 86 21 119/71 98 Nasal Cannula 2.00 11/14/21 08:00 93 Nasal Cannula 2.00 11/14/21 07:41 37.0 11/14/21 07:00 86 11/14/21 07:00 97 12 117/58 95 Nasal Cannula 2.00 11/14/21 06:00 81 20 110/53 98 Nasal Cannula 2.00 11/14/21 05:16 Nasal Cannula 2.00 11/14/21 05:00 88 15 113/62 95 Non Rebreather 4.00 11/14/21 04:00 90 Non Rebreather 11/14/21 04:00 87 18 116/60 94 Non Rebreather 4.00 11/14/21 03:21 93 Room Air 11/14/21 03:00 88 17 120/48 95 Non Rebreather 4.00 11/14/21 02:36 36.4 Non Rebreather 4.00 11/14/21 02:00 85 16 112/56 95 Room Air 11/14/21 01:09 Room Air 11/14/21 01:00 91 16 113/73 94 Non Rebreather 8.00 11/14/21 01:00 87 11/14/21 00:15 96 Non Rebreather 8.00 11/14/21 00:14 Non Rebreather 8.00 11/14/21 00:00 87 28 103/63 100 Non Rebreather 12.00 11/13/21 23:37 36.2 Non Rebreather 12.00 11/13/21 23:00 86 27 127/97 100 Non Rebreather 15.00 11/13/21 22:45 Non Rebreather 15.00 11/13/21 22:33 35.0 11/13/21 22:16 97 83/47 11/13/21 22:00 101 17 90/55 98 Nasal Cannula 5.00 11/13/21 21:57 92 OxyMask 15.00 11/13/21 21:50 Nasal Cannula 5.00 11/13/21 21:04 97 83/47 11/13/21 21:00 88 21 93/54 90 Nasal Cannula 4.00 11/13/21 20:49 92 80/36 11/13/21 20:15 92 Nasal Cannula 6.00 11/13/21 19:00 83 11/13/21 19:00 94 17 102/86 97 Nasal Cannula 4.00 11/13/21 18:39 89 93/48 11/13/21 18:00 89 17 93/48 100 Nasal Cannula 4.00 11/13/21 17:14 37.0 85 14 109/53 100 Nasal Cannula 4.00 11/13/21 15:45 36.0 94 18 122/59 94 Nasal Cannula 4.00 11/13/21 15:14 95 Nasal Cannula 4.00 11/13/21 15:13 76 112/64 11/13/21 15:03 98 Nasal Cannula 4.00 11/13/21 15:00 76 17 112/64 97 Nasal Cannula 4.00 11/13/21 14:35 89 96 11/13/21 14:23 90 17 91/70 100 Nasal Cannula 4.00 11/13/21 14:21 83 I & O 11/14/21 07:00 Intake Total 5090 ml Output Total 3475 ml Balance 1615 ml Height & Weight Height: '" Weight: lbs. oz. kg; 36.80 BMI Method: General Appearance: No Apparent Distress, Mild Distress, Obese, Other (Patient is slow to answer questions and will occasionally moan but not answer my she is moaning) HEENT: PERRL/EOMI; No Moist Mucous Membranes (slightly dry mucous membranes) Neck: Full Range of Motion, Non Tender Respiratory: Chest Non Tender, Normal Breath Sounds, No Accessory Muscle Use, No Respiratory Distress, Decreased Breath Sounds Cardiovascular: Normal Peripheral Pulses, Irregularly Irregular Capillary Refill: Less Than 3 Seconds Peripheral Pulses: 2+ Radial Pulses (R), 2+ Radial Pulses (L) Gastrointestinal: non tender, soft Extremity: Normal Capillary Refill, Pedal Edema (1+ bilater lower extremity pitting edema) Neurologic/Psychiatric: Alert; No Oriented x3 (oriented to self and place but not time); 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 ROS as per chart and RN report Now in ICU, hemodynamically stable Video assessment done using teleICU camera, rest of exam as per RN Discussed with RN. Consultants: megan Hospital course: 11/13 - NSTEMI, septoc shock with UTI 11/14 - flash pulm edema - diuresis , still on LEVO A/P Shock - cards vs septic - on levo , dopa off - EF 55% NSTEMIA- will need intervention ( s/p cath 11/13 Acute re4sp insufficiency - suspected pulm edema - diuresuis attempted UTI - abx initiated Severe hypokalemia, hypoMg - follow , replace Anemia - minitor closely on AC Lines : righ IJ 11/14 (Central Line Necessity Reviewed) Parker: 11/13 OG: Nutrition: po Analgesia: Anxiety/ delirium VTE Prophylaxis: lovenox Stress Ulcer Prophylaxis: PPI Glycemic Control: Plans in collaboration with bedside consultants and IM MDs. Discussed with RN to reach out if any questions or concerns A total of 33 minutes of critical care time was devoted to this patient today, required to treat and/or prevent further deterioration of critical care condition ( as above ) . SHULZHENKO,VALENTIN V MD Nov 14, 2021 13:57
[2021-11-14] MEDS ORDERED: VANCOMYCIN 1250 MG/NS 250 ML IVPB IV SCH ×2 (15:00)
[2021-11-14] MEDS ORDERED: VANCOMYCIN 1500 MG/NS 500 ML IVPB IV SCH ×2 (15:00)
[2021-11-14] MEDS: FUROSEMIDE 40 MG/4 ML INJ (LASIX) IVP SCH (20:18)
[2021-11-15] MEDS: RT-ALBUTEROL/IPRATROPIUM 3 ML (DUONEB) VIAL INH SCH ×6 (02:59→23:09)
[2021-11-15] MEDS: ENOXAPARIN 300 MG/3 ML (LOVENOX) MULTI-DOSE VIAL SQ SCH ×2 (03:16→15:00)
[2021-11-15 04:33] LABS: BASOPHILS % (AUTO) 0 % (0-10); EOSINOPHILS % (AUTO) 0 % (0-10); HEMATOCRIT 21 % (35-52); LYMPHOCYTES # (AUTO) 0.6 10^3/uL (1.0-4.0); LYMPHOCYTES % (AUTO) 4 % (12-44); MEAN CORPUSCULAR HEMOGLOBIN 28 pg (25-34); MEAN CORPUSCULAR HGB CONC 34 g/dL (32-36); MEAN CORPUSCULAR VOLUME 83 fL (80-99); MEAN PLATELET VOLUME 10.6 fL (9.0-12.2); MONOCYTES # (AUTO) 0.5 10^3/uL (0.0-1.0); MONOCYTES % (AUTO) 3 % (0-12); NEUTROPHILS # (AUTO) 13.4 10^3/uL (1.8-7.8); NEUTROPHILS % (AUTO) 87 % (42-75); PLATELET COUNT 274 10^3/uL (130-400); WHITE BLOOD COUNT 15.4 10^3/uL (4.3-11.0)
[2021-11-15 04:55] LABS: ALBUMIN 2.2 GM/DL (3.2-4.5); POTASSIUM 2.7 MMOL/L (3.6-5.0)
[2021-11-15 04:56] LABS: CALCIUM 7.4 MG/DL (8.5-10.1)
[2021-11-15 04:58] LABS: TOTAL PROTEIN 5.6 GM/DL (6.4-8.2)
[2021-11-15 05:00] LABS: BILIRUBIN,TOTAL 0.5 MG/DL (0.1-1.0)
[2021-11-15 05:01] LABS: CREATININE SERUM 1.2 MG/DL (0.60-1.30); PHOSPHORUS 3.2 MG/DL (2.3-4.7)
[2021-11-15 05:04] LABS: MAGNESIUM 1.6 MG/DL (1.6-2.4)
[2021-11-15] MEDS: POTASSIUM CL 10MEQ/50ML IVPB 50 ML IV SCH ×4 (05:57→07:53)
[2021-11-15] MEDS: HYDROCORTISONE 100 MG/2 ML (Solu-CORTEF) VIAL IV SCH ×3 (06:06→22:17)
[2021-11-15] MEDS: MEROPENEM 500 MG/NS 100 ML IVPB IV SCH ×10 (06:07→23:31)
[2021-11-15] MEDS: MAGNESIUM 1 GM/100 ML IVPB 100 ML IV SCH ×2 (07:39→08:21)
[2021-11-15] MEDS: KCL 20 MEQ TAB (K-DUR) PO SCH (07:39)
[2021-11-15] MEDS: NOREPINEPHRINE 8 MG/250 ML 250 ML IV SCH ×2 (07:39→15:35)
[2021-11-15] MEDS: ASPIRIN 81 MG CHEW (CHILDREN'S ASA) PO SCH (08:21)
[2021-11-15] MEDS: FUROSEMIDE 40 MG/4 ML INJ (LASIX) IVP SCH ×2 (08:21→17:07)
[2021-11-15] MEDS: inSUlin ASPART (NovoLOG) 1 UNIT/0.01 ML (CHARGE PER UNIT) SC SCH ×4 (08:21→22:17)
[2021-11-15] MEDS ORDERED: ALPRAZolam 0.5 MG (XANAX) TAB ONE (09:56)
[2021-11-15] MEDS: ALPRAZolam 0.5 MG (XANAX) TAB PO PRN ×2 (09:57→22:17)
--- NOTE | 2021-11-15 11:44 | Progress Note - Hospitalist ---
CHRIS ARGUETA 11/15/21 1144: Subjective HPI/CC On Admission Date Seen by Provider: Nov 15, 2021 Time Seen by Provider: 08:20 Chief complaint: Severe sepsis History of present illness: This is a 71-year-old white female known to me from 2 prior hospital stays recently, both in the ICU with the first due to ischemic bowel status post resection with intubation and extubation then readmission for severe sepsis from UTI/pneumonia/colitis discharged to [facility] Daily Khan is recovering from fracture. She has severe COPD and continues to smoke and she has severe comorbidities that have added up the last 3 weeks. She presented with elevated troponin continue to increase catheterization by Revealing small vessel disease and no non-STEMI. UTI noted so placed on meropenem and vancomycin along with IV fluid resuscitation and pressor therapy. Hydrocortisone initiated due to prednisone dependent state high risk for adrenal insufficiency. Currently she is doing much better and denies any pain. Subjective/Events-last exam Patient was sitting up in bed eating a donut and having a drink from [employer] when I came into the room. Patient states she feels much better other than being told her potassium is low. Her potassium was 2.7 today. Will start K+ replacement. 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 She is on 2.0 L O2 at 95% O2 sat. Hemoglobin is a 7.6 today, stable from yesterday but still low. Will consider giving a unit of RBCs. Review of Systems General: No Chills, No Night Sweats Pulmonary: Dyspnea Cardiovascular: Lt Headedness; No: Chest Pain Gastrointestinal: No: Nausea, Vomiting Focused Exam Lactate Level 11/13/21 11:59: Lactic Acid Level 1.81 Objective Exam Vital Signs Vital Signs Date Time Temp Pulse Resp B/P (MAP) Pulse Ox O2 Delivery O2 Flow Rate FiO2 11/15/21 10:01 94 Nasal Cannula 2.00 11/15/21 07:20 36.8 11/15/21 07:00 94 11/15/21 06:00 21 111/63 11/13/21 12:34 96 Capillary Refill : Less Than 3 Seconds General Appearance: Chronically ill, Obese Respiratory: Chest Non Tender, Lungs Clear, No Accessory Muscle Use, No Respir atory Distress Cardiovascular: Regular Rate, Rhythm, Normal Peripheral Pulses Neurologic/Psychiatric: Alert, Oriented x3, Normal Mood/Affect Results/Procedures Lab Laboratory Tests 11/15/21 04:10 11/15/21 10:05 Patient resulted labs reviewed. Assessment/Plan Assessment and Plan Assess & Plan/Chief Complaint Assessment: Severe sepsis Pulmonary edema or PNA on CXR Status post ischemic colitis status post ex lap with resection of terminal ileum and right hemicolon with anastomosis on 10/21/[address] FERNANDEZ UTI CAD History of [place] Elevated troponin but cardiac cath showing small vessel disease no STEMI COPD Advanced age Anemia Hypokalemia Plan: Meropenem Vancomycin IV fluids Levophed ICU monitoring Patient becoming more more declined 11/15: Potassium replacement Possible unit of RBCs Continue Vanc/Bhargavi Continue Levophed Continue Fluids ICU monitoring KATYA JARQUIN DO 11/16/21 0519: Subjective Subjective/Events-last exam Pt doing really well May need to get one unit of blood her Hgb is 7 Cardiac stepdown unit possibly Hgb 7 Potassium 2.7 receiving supplement Eating well WBC getting back to normal Daughter asked why she kept on getting pneumonia and its because 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 Review of Systems General: Fatigue, Malaise Pulmonary: Dyspnea Objective Exam General Appearance: No Apparent Distress, WD/WN, Chronically ill, Obese Respiratory: Lungs Clear, Normal Breath Sounds, Decreased Breath Sounds Cardiovascular: Regular Rate, Rhythm Neurologic/Psychiatric: Alert, Oriented x3 Assessment/Plan Assessment and Plan Assess & Plan/Chief Complaint Plan: Transfer to cardiac stepdown unit Start prior Auth for detention placement Supervisory-Addendum Brief Verification & Attestation Participated in pt care: history, MDM, physical Personally performed: exam, history, MDM, supervision of care Care discussed with: Medical Student Procedures: n/a Results interpretation: Verified all documentation Verification and Attestation of Medical Student E/M Service A medical student performed and documented this service in my presence. I reviewed and verified all information documented by the medical student and made modifications to such information, when appropriate. I personally performed the physical exam and medical decision making. Katya Jarquin, Nov 16, 2021,05:18 CHRIS ARGUETA Nov 15, 2021 11:44 KATYA JARQUIN DO Nov 16, 2021 05:19
--- NOTE | 2021-11-15 11:50 | Tele-ICU Progress Note ---
Subjective Date Seen by a Provider: Nov 15, 2021 Time Seen by a Provider: 11:30 Subjective/Events-last exam This virtual visit was conducted using real time audio/video. Thank you for asking us to see this patient for respiratory insufficiency. Admitted w cystitis, NSTEMI, low K, low BG, chf. Recent events: still feels short of breath. Known CAD/stents, COPD. PE: Obese. VSS. O2 sat 92% on 2L NC. HEENT: No obvious masses, adenopathy or JVD. Chest: clear to auscultation. CV: RRR S1 S2 No murmur or added sounds. Abd: Non-tender. Bowel sounds Y. : Unremarkable. 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 No obvious focal findings. Extremities: 1+ edema. Capillary refill < 3 seconds. Skin: unremarkable. Results: Elevated WCC 15.4, BG 246. Decreased Hb 7.0, K 2.7, Alb 2.2. No new BG/CXR. Available chart/ vitals / labs / images reviewed. Video assessment done using teleICU camera, rest of exam as per RN. A/P: Respiratory insufficiency: Continue present management with duonebs, solucortef, O2. Monitor for increasing oxygenation needs and/or need for intubation. Critical Care: critically ill patient. Levophed held since 11/14/21. Cont. abx, lasix, statin, ASA, SSI. replace K. Consider step down. Discussed with RN Marci. Asked RN to reach out to eICU if any questions or concerns later. Time spent with patient/coordination of care with other health professionals (mins): 22 Sepsis Event Evaluation Height, Weight, BMI Height: '" Weight: lbs. oz. kg; 36.80 BMI Method: Focused Exam Lactate Level 11/13/21 11:59: Lactic Acid Level 1.81 Exam Exam Patient acknowledged, consented, and participated in this virtual visit which was conducted using real time audio/video Vital Signs Date Time Temp Pulse Resp B/P (MAP) Pulse Ox O2 Delivery O2 Flow Rate FiO2 11/15/21 10:01 94 Nasal Cannula 2.00 11/15/21 08:00 92 Nasal Cannula 2.00 11/15/21 07:20 36.8 11/15/21 07:00 94 11/15/21 06:54 93 Nasal Cannula 2.00 11/15/21 06:00 92 21 111/63 90 Nasal Cannula 2.00 11/15/21 05:00 87 18 92/59 92 Nasal Cannula 2.00 11/15/21 04:00 90 18 112/59 94 Nasal Cannula 2.00 11/15/21 04:00 36.8 11/15/21 04:00 93 Nasal Cannula 2.00 11/15/21 03:00 92 18 100/54 94 Nasal Cannula 2.00 11/15/21 02:59 94 Nasal Cannula 2.00 11/15/21 02:00 91 22 116/51 95 Nasal Cannula 2.00 11/15/21 01:00 75 19 114/58 94 Nasal Cannula 2.00 11/15/21 01:00 75 11/15/21 00:00 86 23 117/55 98 Nasal Cannula 2.00 11/15/21 00:00 36.8 11/15/21 00:00 93 Nasal Cannula 2.00 11/14/21 23:00 84 18 107/56 92 Nasal Cannula 2.00 11/14/21 22:59 94 Nasal Cannula 2.00 11/14/21 22:00 88 24 96/53 92 Nasal Cannula 2.00 11/14/21 21:00 89 26 100/44 94 Nasal Cannula 2.00 11/14/21 20:00 93 Nasal Cannula 2.00 11/14/21 20:00 91 16 126/65 99 Nasal Cannula 2.00 11/14/21 19:59 36.9 11/14/21 19:13 95 Nasal Cannula 2.00 11/14/21 19:00 95 20 121/59 95 Nasal Cannula 2.00 11/14/21 19:00 95 11/14/21 18:00 89 11 107/68 99 Nasal Cannula 2.00 11/14/21 17:00 89 16 106/71 99 Nasal Cannula 2.00 11/14/21 16:00 37.0 11/14/21 16:00 89 18 121/69 94 Nasal Cannula 2.00 11/14/21 16:00 93 Nasal Cannula 2.00 11/14/21 15:15 94 Nasal Cannula 2.00 11/14/21 15:00 95 19 113/78 92 Nasal Cannula 2.00 11/14/21 14:00 94 15 98/56 95 Nasal Cannula 2.00 11/14/21 13:30 93 14 124/88 100 Nasal Cannula 2.00 11/14/21 12:56 93 11/14/21 12:37 37.2 11/14/21 12:00 93 Nasal Cannula 2.00 11/14/21 12:00 94 29 115/76 90 Nasal Cannula 2.00 I & O 11/15/21 07:00 Intake Total 2012.5 ml Output Total 4850 ml Balance -2837.5 ml Height & Weight Height: '" Weight: lbs. oz. kg; 36.80 BMI Method: General Appearance: No Apparent Distress (See free text), Chronically ill, Obese HEENT: PERRL/EOMI, Normal ENT Inspection, Pharynx Normal, Moist Mucous Membranes Neck: Full Range of Motion, Normal Inspection, Non Tender Respiratory: Chest Non Tender, Lungs Clear, No Accessory Muscle Use, No Respiratory Distress, Decreased Breath Sounds Cardiovascular: Regular Rate, Rhythm, No Edema, No Gallop, No JVD, No Murmur, Normal Peripheral Pulses Capillary Refill: Less Than 3 Seconds Peripheral Pulses: 2+ Radial Pulses (R), 2+ Radial Pulses (L) Gastrointestinal: non tender, soft Extremity: Normal Capillary Refill, Normal Inspection, Normal Range of Motion, Non Tender, No Calf Tenderness, No Pedal Edema Neurologic/Psychiatric: Alert, Oriented x3, No Motor/Sensory Deficits, Normal Mood/Affect Skin: Normal Color, Warm/Dry Lymphatic: No Adenopathy Results Lab Laboratory Tests 11/13/21 11:59 11/13/21 18:03 11/14/21 05:10 11/15/21 04:10 11/15/21 10:05 Assessment/Plan Assessment/Plan See free text. Critical Care: Critically Ill Patient KAYLA KINGSLEY MD Nov 15, 2021 11:50
[2021-11-15] MEDS ORDERED: KCL 20 MEQ TAB (K-DUR) PO ONE ×3 (12:00→16:00)
[2021-11-15] MEDS ORDERED: DICY10CA12 PO (12:24)
[2021-11-15] MEDS ORDERED: CLOP75TA28 PO (12:24)
[2021-11-15] MEDS ORDERED: EMPA10TA PO (12:24)
[2021-11-15] MEDS ORDERED: ATOR80TA76 PO (12:24)
[2021-11-15] MEDS ORDERED: AMIT25TA9 PO (12:24)
[2021-11-15] MEDS ORDERED: INSN1U SQ (12:24)
[2021-11-15] MEDS ORDERED: ENOX40DI8 SQ (12:24)
[2021-11-15] MEDS ORDERED: ASPI-1238 PO (12:24)
[2021-11-15] MEDS ORDERED: POLY17PO6 PO (12:24)
[2021-11-15] MEDS ORDERED: TIZA-169 PO (12:24)
[2021-11-15] MEDS ORDERED: ALPR0.5T7 PO (12:24)
[2021-11-15] MEDS ORDERED: PANT40TA52 PO (12:24)
[2021-11-15] MEDS ORDERED: OMEG1CAP58 PO (12:24)
[2021-11-15] MEDS ORDERED: BUDE10.2 IH (12:24)
[2021-11-15] MEDS ORDERED: IPRA3AMP31 IH (12:24)
[2021-11-15] MEDS ORDERED: CALC600T80 PO (12:24)
[2021-11-15] MEDS ORDERED: GABA-490 PO (12:24)
[2021-11-15] MEDS ORDERED: HYDR-3820 PO (12:24)
[2021-11-15] MEDS ORDERED: PRED5TAB PO (12:24)
[2021-11-15] MEDS ORDERED: TORS20TA3 PO (12:24)
[2021-11-15] MEDS ORDERED: ROPI2TAB6 PO (12:24)
[2021-11-15] MEDS ORDERED: INSU100V31 SC (12:24)
[2021-11-15] MEDS ORDERED: LEVO88TA54 PO (12:24)
[2021-11-15] MEDS ORDERED: TROUGH ORDER-PHARMACY XX NR (14:00)
--- NOTE | 2021-11-15 18:40 | Cardiology Progress Note ---
Progress Note-Cardiology Events since last exam Date Seen by Provider: Nov 15, 2021 Time Seen by Provider: 18:35 Events since last exam I am following her due to non-ST elevation myocardial infarction. She remains in the intensive care unit. She has been weaned off norepinephrine which she was getting for probable septic shock. She denies chest discomfort, dyspnea, palpitations, syncope, or ankle edema. Certain portions of this document may have been dictated utilizing voice recognition technology. Inherent to this technology, typographical and grammatical errors may exist. As much as I am diligent to identify and correct these mistakes, some errors may remain in the document. Vitals Last set of Vitals Signs Vital Signs 11/13/21 11/15/21 11/15/21 11/15/21 12:34 15:05 16:00 18:00 Temp 36.9 Pulse 84 Resp 38 B/P (MAP) 114/69 Pulse Ox 96 O2 Delivery Nasal Cannula O2 Flow Rate 2.00 FiO2 96 Labs Labs Laboratory Tests 11/15/21 04:10 11/15/21 10:05 Exam Vital Signs Vital Signs Date Time Temp Pulse Resp B/P (MAP) Pulse Ox O2 Delivery O2 Flow Rate FiO2 11/15/21 18:00 84 38 114/69 96 11/15/21 16:00 Nasal Cannula 2.00 11/15/21 15:05 36.9 11/13/21 12:34 96 Physical Exam General: Alert. No acute distress. She is obese. Eye: No xanthelasma. HENT: Normocephalic. Neck: Jugular venous pressure does not appear elevated. Respiratory: Lungs are clear to auscultation. Respirations are non-labored. Breath sounds are equal. Symmetrical chest wall expansion. Cardiovascular: Normal rate. Regular rhythm. No murmur. No gallop. No edema. Gastrointestinal: Soft. Normal bowel sounds. Skin: Warm. Dry. Neurologic: Alert and oriented to person, place, time. Cranial nerves 3-11 gr ossly intact. Psychiatric: Cooperative. Appropriate mood & affect. Labs Laboratory Tests Test 11/14/21 20:14 11/15/21 04:10 11/15/21 06:10 11/15/21 10:05 Range/Units Glucometer 291 H 246 H 70-110 MG/DL White Blood Count 15.4 H 4.3-11.0 10^3/uL Red Blood Count 2.52 L 3.80-5.11 10^6/uL Hemoglobin 7.0 L 11.5-16.0 g/dL Hematocrit 21 L 35-52 % Mean Corpuscular Volume 83 80-99 fL Mean Corpuscular Hemoglobin 28 25-34 pg Mean Corpuscular Hemoglobin Concent 34 32-36 g/dL Red Cell Distribution Width 18.0 H 10.0-14.5 % Platelet Count 274 130-400 10^3/uL Mean Platelet Volume 10.6 9.0-12.2 fL Immature Granulocyte % (Auto) 6 % Neutrophils (%) (Auto) 87 H 42-75 % Lymphocytes (%) (Auto) 4 L 12-44 % Monocytes (%) (Auto) 3 0-12 % Eosinophils (%) (Auto) 0 0-10 % Basophils (%) (Auto) 0 0-10 % Neutrophils # (Auto) 13.4 H 1.8-7.8 10^3/uL Lymphocytes # (Auto) 0.6 L 1.0-4.0 10^3/uL Monocytes # (Auto) 0.5 0.0-1.0 10^3/uL Eosinophils # (Auto) 0.0 0.0-0.3 10^3/uL Basophils # (Auto) 0.0 0.0-0.1 10^3/uL Immature Granulocyte # (Auto) 0.9 H 0.0-0.1 10^3/uL Sodium Level 137 135-145 MMOL/L Potassium Level 2.7 L 2.8 L 3.6-5.0 MMOL/L Chloride Level 95 L 98-107 MMOL/L Carbon Dioxide Level 28 21-32 MMOL/L Anion Gap 14 5-14 MMOL/L Blood Urea Nitrogen 11 7-18 MG/DL Creatinine 1.20 0.60-1.30 MG/DL Estimat Glomerular Filtration Rate 44 BUN/Creatinine Ratio 9 Glucose Level 240 H 70-105 MG/DL Calcium Level 7.4 L 8.5-10.1 MG/DL Corrected Calcium 8.8 8.5-10.1 MG/DL Phosphorus Level 3.2 2.3-4.7 MG/DL Magnesium Level 1.6 1.6-2.4 MG/DL Total Bilirubin 0.5 0.1-1.0 MG/DL Aspartate Amino Transf (AST/SGOT) 38 H 5-34 U/L Alanine Aminotransferase (ALT/SGPT) 13 0-55 U/L Alkaline Phosphatase 119 40-136 U/L Total Protein 5.6 L 6.4-8.2 GM/DL Albumin 2.2 L 3.2-4.5 GM/DL Test 11/15/21 10:24 11/15/21 15:04 Range/Units Glucometer 324 H 297 H 70-110 MG/DL Diagnosis/Problems Diagnosis/Problems (1) Non-ST elevation myocardial infarction (NSTEMI), initial episode of care Assessment & Plan: She appears to have suffered a non-ST elevation myocardial infarction with marked rise in the troponin level with no noncardiac explanation for this. Based upon the findings of her cardiac catheterization, I suspect she had a type II non-ST elevation due to supply/demand mismatch. She does have significant disease of the right coronary artery but no acute thrombotic occlusion. Therefore, I recommend we continue her on the present medical therapy. I would continue enoxaparin for a full 4 days or until discharge, whichever comes first. She may need high risk intervention to the right coronary artery but this would most likely require some sort of atherectomy which we do not presently offer at this hospital. She may need to discuss this with her regular human resources file clerk after discharge. She should continue on aspirin, clopidogrel and high-dose statin medication. I have been holding beta-keerthi due to persistent shock. I will attempt to start low-dose beta-keerthi tomorrow. (2) Acute on chronic heart failure with preserved ejection fraction (HFpEF) Assessment & Plan: Her chest x-ray from admission showed possible pulmonary edema. I will obtain a follow-up chest x-ray this morning. She is presently receiving intravenous furosemide twice daily. (3) Peripheral arterial disease Assessment & Plan: At the time of her cardiac catheterization she was found to have total occlusion of the right superficial femoral artery. She was not aware of having peripheral arterial disease. She will need to have this followed by her primary human resources file clerk at the outside facility after discharge. There are presently no signs of acute limb ischemia. (4) Mixed hyperlipidemia Assessment & Plan: Continue high-dose statin medication in light of the acute myocardial infarction. (5) Shock Assessment & Plan: Her norepinephrine infusion is now off. (6) Hypokalemia Status: Acute Assessment & Plan: Etiology unclear. She is receiving replacement therapy. (7) Stage 3 chronic kidney disease Assessment & Plan: We need to watch her renal function closely in light of the multiple acute issues. (8) Type 2 diabetes mellitus with complication Assessment & Plan: This is being managed by the hospitalist. (9) Obesity Assessment & Plan: She needs to be encouraged to work on weight loss. (10) Cigarette smoker Assessment & Plan: She is presently in a retirement facility and cannot smoke cigarettes. But she was smoking up until her most recent hospitalization earlier in the week. She needs to be encouraged to quit smoking. EDEN ROSARIO JR, MD Nov 15, 2021 18:40
[2021-11-15] MEDS: GABAPENTIN 400 MG (NEURONTIN) CAP PO SCH (22:15)
[2021-11-15] MEDS: AMITRIPTYLINE 25 MG (ELAVIL) TAB PO SCH (22:16)
[2021-11-15] MEDS: rOPINIRole 1 MG (REQUIP) TABLET PO SCH (22:16)
[2021-11-15] MEDS: DICYCLOMINE 10 MG (BENTYL) CAP PO SCH (22:16)
[2021-11-15] MEDS: polyethylene glycoL POWDER 17 GM (MIRALAX) PACK PO SCH (22:17)
[2021-11-16] MEDS: KCL 20 MEQ TAB (K-DUR) PO SCH ×3 (00:01→03:31)
[2021-11-16] MEDS ORDERED: KCL 20 MEQ TAB (K-DUR) PO ONE ×2 (01:30→03:30)
[2021-11-16] MEDS: ENOXAPARIN 300 MG/3 ML (LOVENOX) MULTI-DOSE VIAL SQ SCH (01:56)
[2021-11-16] MEDS: RT-ALBUTEROL/IPRATROPIUM 3 ML (DUONEB) VIAL INH SCH ×4 (02:24→15:07)
[2021-11-16] MEDS: ALPRAZolam 0.5 MG (XANAX) TAB PO PRN ×2 (03:37→13:34)
[2021-11-16] MEDS: MEROPENEM 500 MG/NS 100 ML IVPB IV SCH ×8 (05:08→23:51)
[2021-11-16] MEDS: FUROSEMIDE 40 MG/4 ML INJ (LASIX) IVP SCH ×2 (05:15→16:07)
[2021-11-16] MEDS: HYDROCORTISONE 100 MG/2 ML (Solu-CORTEF) VIAL IV SCH (05:16)
[2021-11-16] MEDS: LEVOTHYROXINE 88 MCG (LEVOTHORID) TAB PO SCH ×2 (05:17→05:22)
[2021-11-16] MEDS: PANTOPRAZOLE 40 MG (PROTONIX) TAB PO SCH ×2 (05:17→05:22)
[2021-11-16] MEDS: DICYCLOMINE 10 MG (BENTYL) CAP PO SCH ×5 (05:17→20:24)
[2021-11-16] MEDS: inSUlin ASPART (NovoLOG) 1 UNIT/0.01 ML (CHARGE PER UNIT) SC SCH ×4 (06:40→20:24)
[2021-11-16 07:03] LABS: BASOPHILS % (AUTO) 0 % (0-10); EOSINOPHILS % (AUTO) 0 % (0-10); HEMATOCRIT 21 % (35-52); LYMPHOCYTES # (AUTO) 0.9 10^3/uL (1.0-4.0); LYMPHOCYTES % (AUTO) 4 % (12-44); MEAN CORPUSCULAR HEMOGLOBIN 28 pg (25-34); MEAN CORPUSCULAR HGB CONC 33 g/dL (32-36); MEAN CORPUSCULAR VOLUME 85 fL (80-99); MEAN PLATELET VOLUME 10.4 fL (9.0-12.2); MONOCYTES # (AUTO) 0.8 10^3/uL (0.0-1.0); MONOCYTES % (AUTO) 4 % (0-12); NEUTROPHILS # (AUTO) 18.6 10^3/uL (1.8-7.8); NEUTROPHILS % (AUTO) 85 % (42-75); PLATELET COUNT 262 10^3/uL (130-400); WHITE BLOOD COUNT 21.9 10^3/uL (4.3-11.0)
[2021-11-16 07:08] LABS: HEMOGLOBIN 6.9 g/dL (11.5-16.0)
[2021-11-16 07:13] LABS: ALBUMIN 2.4 GM/DL (3.2-4.5); POTASSIUM 3.9 MMOL/L (3.6-5.0)
[2021-11-16 07:14] LABS: CALCIUM 7.6 MG/DL (8.5-10.1)
[2021-11-16 07:16] LABS: TOTAL PROTEIN 5.9 GM/DL (6.4-8.2)
[2021-11-16 07:17] LABS: BILIRUBIN,TOTAL 0.5 MG/DL (0.1-1.0)
[2021-11-16 07:19] LABS: CREATININE SERUM 1.17 MG/DL (0.60-1.30)
[2021-11-16 07:22] LABS: MAGNESIUM 1.7 MG/DL (1.6-2.4)
[2021-11-16] MEDS: GABAPENTIN 400 MG (NEURONTIN) CAP PO SCH ×3 (08:54→20:24)
[2021-11-16] MEDS: ASPIRIN 81 MG CHEW (CHILDREN'S ASA) PO SCH (08:54)
[2021-11-16] MEDS: CLOPIDOGREL 75 MG (PLAVIX) TABLET PO SCH (08:55)
[2021-11-16] MEDS: CALCIUM CARBONATE 600 MG (CALCARB) TAB PO SCH (08:55)
[2021-11-16] MEDS: EMPAGLIFLOZIN 10 MG TABLET (JARDIANCE) PO SCH (08:55)
[2021-11-16] MEDS: polyethylene glycoL POWDER 17 GM (MIRALAX) PACK PO SCH ×2 (08:55→19:40)
[2021-11-16] MEDS ORDERED: ASPIRIN E.C. 81 MG (ECOTRIN) TAB PO SCH (09:00)
[2021-11-16] MEDS ORDERED: NS IV 500 ML 500 ML IV SCH (09:00)
[2021-11-16] MEDS ORDERED: predniSONE 20 MG TAB PO ONE (09:45)
--- NOTE | 2021-11-16 11:05 | Physical Therapy Evaluation ---
PT Evaluation-General Medical Diagnosis Admission Date Nov 13, 2021 at 13:57 Medical Diagnosis: cystitis without hematuria Onset Date: Nov 13, 2021 Therapy Diagnosis Therapy Diagnosis: generalized weakness/debility Precautions Precautions/Isolations: Fall Prevention, Standard Precautions, Pressure Ulcer Referral Physician: David Reason for Referral: Evaluation/Treatment Medical History Pertinent Medical History: CAD, COPD, DM, Heart Failure, HTN, Hypothroidism, PVD, Smoking Current History EMS from [place] secondary to SOA and low blood sugar Reviewed History: Yes Social History Home: Residential Prior Prior Level of Function SCALE: Activities may be completed with or without assistive devices. 1-Ozurftmnvm-avtepwx completes the activity by him/herself with no assistance from a helper. 5-Set-up or Clean-up Assistance-helper sets up or cleans up; patient completes activity. [place] assists only prior to or following the activity. 4-Supervision or Touching Assistance-helper provides verbal cues and/or touching/steadying and/or contact guard assistance as patient completes activity. Assistance may be provided throughout the activity or intermittently. 3-Partial/Moderate Assistance-helper does LESS THAN HALF the effort. [place] lifts, holds or supports trunk or limbs, but provides less than half the effort. 2-Substantial/Maximal Assistance-helper does MORE THAN HALF the effort. [place] lifts or holds trunk or limbs and provides more than half the effort. 7-Djkekovty-krgtmg does ALL the effort. Patient does none of the effort to complete the activity. Or, the assistance of 2 or more helpers is required for the patient to complete the activity. If activity was not attempted, code reason: 7-Patient Refused. 9-Not Applicable-not attempted and the patient did not perform the activity before the current illness, exacerbation or injury. 10-Not Attempted due to Environmental Limitations-(lack of equipment, weather restraints, etc.). 88-Not Attempted due to Medical Conditions or Safety Concerns. Bed Mobility: 1 Transfers (B,C,W/C): 1 patient reports she hasn't done much for a long time and has been in the hosp ital 3 time in the past month PT Evaluation-Current Subjective Patient agrees to PT. Objective Patient Orientation: Normal For Age Attachments: Oxygen, Parker Catheter ROM/Strength ROM Lower Extremities bilateral LE WFL Strength Lower Extremities 3-/5 grossly bilateral LE Integumentary/Posture Bladder Incontinence: Parker Cath Posture slightly kyphotic Neuromuscular (Tone, Coordination, Reflexes) diminished coordination Sensory Vision: Functional Hearing: Impaired Transfers Roll Left to Right (QC): 1 (x 2) Sit to Lying (QC): 1 (x 2) Lying to Sitting/Side of Bed(Q: 1 (x 2) Sit to Stand (QC): 88 Gait Does the Patient Walk?: No and Walking Goal IS indicated Balance Sitting Static: Fair Sitting Dynamic: Fair Assessment/Needs 71 y.o. female, will benefit from skilled PT to address functional strength and mobility to improve current LOF. Rehab Potential: Guarded PT Residential Goals Maintenance Job Titles Goals PT Residential Goals Time Frame: Dec 04, 2021 Roll Left & Right (QC): 2 Sit to Lying (QC): 2 Lying-Sitting on Side/Bed(QC): 2 Sit to Stand (QC): 2 Chair/Rbi-tp-Janch Xfer(QC): 2 Walk 10 feet (QC): 2 PT Plan Problem List Problem List: Activity Tolerance, Functional Strength, Safety, Balance, Gait, Transfer, Bed Mobility Treatment/Plan Treatment Plan: Continue Plan of Care Treatment Plan: Bed Mobility, Education, Functional Activity Virgen, Functional Strength, Gait, Safety, Therapeutic Exercise, Transfers Treatment Duration: Dec 04, 2021 Frequency: 6 times per week Estimated Hrs Per Day: .5 hour per day Patient and/or Family Agrees t: Yes Time/GCodes Time In: 1010 Time Out: 1027 Total Billed Treatment Time: 17 Total Billed Treatment 1 visit EVMod 17 min JO BARTON PT Nov 16, 2021 11:05
[2021-11-16] MEDS: RT--FLUTICASONE/SALMETEROL 232-14 (AIRDUO RespiCLICK) IH SCH ×2 (11:08→22:06)
--- NOTE | 2021-11-16 11:08 | Occupational Therapy Eval ---
OT Evaluation-General/PLF Medical Diagnosis Admission Date Nov 13, 2021 at 13:57 Medical Diagnosis: cystitis without hematuria Onset Date: Nov 13, 2021 Therapy Diagnosis Therapy Diagnosis: decreased ADL status Precautions Precautions/Isolations: Fall Prevention, Standard Precautions, Pressure Ulcer Referral Physician: David Walls Reason: Evaluation/Treatment Medical History Pertinent Medical History: CAD, COPD, DM, Heart Failure, HTN, Smoking Additional Medical History COPD, heart attack, HTN, PVD, GERD, arthritis, hypothyroidism, DM, anxiety, CHF, CAD wtih stenting, ischemic bowel with resection Social History Home: [facility] ADL-Prior Level of Function SCALE: Activities may be completed with or without assistive devices. 9-Dkgxjbxlgr-dfuatjr completes the activity by him/herself with no assistance from a helper. 5-Set-up or Clean-up Assistance-helper sets up or cleans up; patient completes activity. [place] assists only prior to or following the activity. 4-Supervision or Touching Assistance-helper provides verbal cues and/or touching/steadying and/or contact guard assistance as patient completes activity. Assistance may be provided throughout the activity or intermittently. 3-Partial/Moderate Assistance-helper does LESS THAN HALF the effort. [place] lifts, holds or supports trunk or limbs, but provides less than half the effort. 2-Substantial/Maximal Assistance-helper does MORE THAN HALF the effort. [place] lifts or holds trunk or limbs and provides more than half the effort. 0-Jbnlnihny-zxiwxj does ALL the effort. Patient does none of the effort to complete the activity. Or, the assistance of 2 or more helpers is required for the patient to complete the activity. If activity was not attempted, code reason: 7-Patient Refused. 9-Not Applicable-not attempted and the patient did not perform the activity before the current illness, exacerbation or injury. 10-Not Attempted due to Environmental Limitations-(lack of equipment, weather restraints, etc.). 88-Not Attempted due to Medical Conditions or Safety Concerns. ADL PLOF Comments Pt has recently been admitted to [facility]. At the AL, pt requires total assistance with showering and dressing, and required mechanical lift for transfers. Pt is able to feed herself. Self Care: Needed Some Help Functional Cognition: Independent OT Current Status Subjective Pt laying in bed, agreeable to OT evaluation/tx. Mental Status/Objective Patient Orientation: Person, Place, Time, Situation Attachments: Central Line Current Upper Extremity ROM WFL, BUE shoulder flexion to approx 120 degrees Upper Extremity Coordination WFL Upper Extremity Sensation WFL Upper Extremity Strength grossly 3+/5 ADL-Treatment Eating (QC): 6 (IND per report.) Oral Hygiene (QC): 5 (set up with oral swab.) Shower/Bathe Self (QC): 1 (Per clincial judgment.) Lower Body Dressing (QC): 1 (Per clincial judgment.) On/Off Footwear (QC): 1 (Per clincial judgment.) Toileting Hygiene (QC): 1 (Per clincial judgment.) Other Treatments Pt laying in bed, pt provided information about PLOF and home set up, and participated in UE Screen. Pt able to use oral swab to wash her gums/tongue with set up assistance, set up assistance to wash her face. Pt declined attempting to get out of bed at this time. Per PT evaluation, pt required assist x2 for rolling side to side, sit to lying and lying to sitting. Post tx, pt in bed, call light in reach and all needs met. Education OT Patient Education: Correct positioning, Energy conservation, Exercise program, Modified ADL techniques, Progress toward Goal/Update tx plan, Purpose of tx/functional activities, Rehab process Teaching Recipient: Patient Teaching Methods: Discussion Response to Teaching: Verbalize Understanding OT Business Strategy Manager Goals Business Strategy Manager Goals Time Frame: Dec 03, 2021 Eating (QC): 6 Oral Hygiene (QC): 6 Upper Body Dressing (QC): 5 Additional Goals: 1-Demonstrate ADL Tasks, 2-Verbalize Understanding, 3- ImproveStrength/Virgen 1=Demonstrate adherence to instructed precautions during ADL tasks. 2=Patient will verbalize/demonstrate understanding of assistive devices/modifications for ADL. 3=Patient will improve strength/tolerance for activity to enable patient to perform ADL's. OT Education/Plan Problem List/Assessment Assessment: Decreased Activ Tolerance, Decreased UE Strength, Dependent Trans fers, Impaired Funct Balance, Impaired I ADL's, Impaired Self-Care Skills Discharge Recommendations Plan/Recommendations: Continue POC Treatment Plan/Plan of Care Patient would benefit from OT for education, treatment and training to promote independence in ADL's, mobility, safety and/or upper extremity function for ADL's. Plan of Care: ADL Retraining, Functional Mobility, UE Funct Exercise/Act Treatment Duration: Dec 03, 2021 Frequency: 3 times per week (3-5 times per week) Rehab Potential: Fair Time/GCodes Start Time: 10:35 Stop Time: 10:54 Total Time Billed (hr/min): 19 Billed Treatment Time 1, PATT SANCHEZ OT Nov 16, 2021 11:08
[2021-11-16] MEDS: LACTOBACILLUS ACIDOPHILUS (PROBIOTIC) CAPSULE PO SCH ×3 (11:42→17:34)
[2021-11-16] MEDS ORDERED: NORMAL SALINE 250 ML ONE (12:57)
--- NOTE | 2021-11-16 13:23 | Progress Note - Hospitalist ---
CHRIS ARGUETA 11/16/21 1323: Subjective HPI/CC On Admission Date Seen by Provider: Nov 16, 2021 Time Seen by Provider: 08:10 Chief complaint: Severe sepsis History of present illness: This is a 71-year-old white female known to me from 2 prior hospital stays recently, both in the ICU with the first due to ischemic bowel status post resection with intubation and extubation then readmission for severe sepsis from UTI/pneumonia/colitis discharged to [facility] Khan is recovering from fracture. She has severe COPD and continues to smoke and she has severe comorbidities that have added up the last 3 weeks. She presented with elevated troponin continue to increase catheterization by Revealing small vessel disease and no non-STEMI. UTI noted so placed on meropenem and vancomycin along with IV fluid resuscitation and pressor therapy. Hydrocortisone initiated due to prednisone dependent state high risk for adrenal insufficiency. Currently she is doing much better and denies any pain. Subjective/Events-last exam On my initial visit patient describe herself as in a bad mood and wasn't very cooperative with my questions. She said she was going to leave AMA at noon and that she had no complaints medically and felt great. When visiting later with Dr. Jarquin, patient was with her daughter and in a more cooperative mood. She let us know that she was having some diarrhea, and was agreeable to starting a probiotic to try to help. Dr. Jarquin also let her know that her hemoglobin was 6.9 and that we were going to give her a unit of blood. She was also agreeable to this. Dr. Jarquin told her if all went well today there would be a chance for discharge tomorrow. Patient agreed to this. Patient will likely be moved down to the floor today. Review of Systems Cardiovascular: No: Chest Pain, Palpitations Gastrointestinal: Diarrhea; No: Nausea, Vomiting Objective Exam Vital Signs Vital Signs Date Time Temp Pulse Resp B/P (MAP) Pulse Ox O2 Delivery O2 Flow Rate FiO2 11/16/21 12:00 36.1 83 18 114/90 91 Nasal Cannula 2.00 11/13/21 12:34 96 Capillary Refill : Less Than 3 Seconds General Appearance: Chronically ill, Obese Respiratory: Lungs Clear, No Accessory Muscle Use, No Respiratory Distress, Decreased Breath Sounds Cardiovascular: Regular Rate, Rhythm, Normal Peripheral Pulses Neurologic/Psychiatric: Alert, Oriented x3, Normal Mood/Affect Results/Procedures Lab Laboratory Tests 11/15/21 20:30 11/16/21 06:55 Patient resulted labs reviewed. Assessment/Plan Assessment and Plan Assess & Plan/Chief Complaint Assessment: Severe sepsis Pulmonary edema or PNA on CXR Status post ischemic colitis status post ex lap with resection of terminal ileum and right hemicolon with anastomosis on 10/21/[address] JIM MONTES CAD History of [place] Elevated troponin but cardiac cath showing small vessel disease no STEMI COPD Advanced age Anemia Hypokalemia Plan: Meropenem Vancomycin IV fluids Levophed ICU monitoring Patient becoming more more declined 11/15: Potassium replacement Possible unit of RBCs Continue Vanc/Bhargavi Continue Levophed Continue Fluids ICU monitoring 11/16: Unit of blood Probiotic Transfer to floor possible discharge tomorrow KATYA JARQUIN DO 11/17/21 0607: Subjective Subjective/Events-last exam Pt very cranky today Hgb 6.9 will require one unit of blood Threatening to leave AMA at 12:00 noon Insurance submitted for admission to the half-way again for or Monday Transferring to fourth floor PT and OT will be ordered Checked meds and labs After rounds later in the afternoon patient became aggressive and agitated requiring antipsychotics Review of Systems General: Fatigue, Malaise Objective Exam General Appearance: No Apparent Distress, WD/WN, Chronically ill, Obese Respiratory: No Accessory Muscle Use, No Respiratory Distress, Decreased Breath Sounds Cardiovascular: Regular Rate, Rhythm Assessment/Plan Assessment and Plan Assess & Plan/Chief Complaint Antipsychotics for agitation Talk to daughter about end-of-life care tomorrow Supervisory-Addendum Brief Verification & Attestation Participated in pt care: history, MDM, physical Personally performed: exam, history, MDM, supervision of care Care discussed with: Medical Student Procedures: n/a Results interpretation: Verified all documentation Verification and Attestation of Medical Student E/M Service A medical student performed and documented this service in my presence. I reviewed and verified all information documented by the medical student and made modifications to such information, when appropriate. I personally performed the physical exam and medical decision making. Katya Jarquin Nov 17, 2021,06:05 CHRIS ARGUETA Nov 16, 2021 13:23 KATYA JARQUIN DO Nov 17, 2021 06:07
[2021-11-16 13:42] VITALS: BP 114/90
[2021-11-16 13:48] VITALS: BP 124/92
[2021-11-16 13:57] VITALS: BP 128/76
[2021-11-16] MEDS ORDERED: LORazepam INJ 2 MG/ML (ATIVAN) VIAL IVP PRN (15:30)
[2021-11-16] MEDS ORDERED: HALOPERIDOL 5 MG/ML (HALDOL) VIAL IM PRN (15:30)
[2021-11-16 15:39] VITALS: BP 150/99
[2021-11-16] MEDS: NICOTINE 21 MG (NICODERM) PATCH TD SCH (16:07)
--- NOTE | 2021-11-16 16:22 | Diagnostic Imaging Report ---
INDICATION: Altered mental status. TECHNIQUE: Multiple contiguous axial images were obtained through the brain without the use of intravenous contrast. Auto Exposure Controls were utilized during the CT exam to meet ALARA standards for radiation dose reduction. COMPARISON: Comparison made to 11/03/2021. FINDINGS: There are mild diffuse atrophic changes. There is no subdural or epidural collection. There is mild low-density change in the periventricular white matter. There is no acute intraparenchymal abnormality. Calvarial windows are normal. IMPRESSION: No acute intracranial abnormality and no significant change from 11/03/2021. Dictated by: Dictated on workstation # [id number]
[2021-11-16 16:51] LABS: ABG BASE EXCESS 6.4 MMOL/L (-2.5-2.5); ABG OXYGEN SATURATION 93 % (94-100); ABG PCO2 43 MMHG (35-45); ABG PH 7.46 (7.37-7.43); ABG PO2 62 MMHG (79-93); ABG TCO2 31.9 MMOL/L (21.0-31.0)
[2021-11-16 16:52] LABS: ALLENS TEST YES-POS; INSPIRED O2 3L; VENTILATOR NO
[2021-11-16 16:53] LABS: PATIENT TEMP 36.3
--- NOTE | 2021-11-16 19:18 | Cardiology Progress Note ---
Progress Note-Cardiology Events since last exam Date Seen by Provider: Nov 16, 2021 Time Seen by Provider: 19:12 Events since last exam I am following her for non-ST elevation myocardial infarction. She has been transferred from the intensive care unit down to the medical floor. When I saw her she was somnolent but arousable. She denied chest discomfort, dyspnea, palpitations, or syncope. She has persistent mild bilateral ankle edema. Certain portions of this document may have been dictated utilizing voice recognition technology. Inherent to this technology, typographical and grammatical errors may exist. As much as I am diligent to identify and correct these mistakes, some errors may remain in the document. Vitals Last set of Vitals Signs Vital Signs 11/13/21 11/16/21 12:34 16:19 Temp 36.9 Pulse 86 Resp 24 B/P (MAP) 131/78 Pulse Ox 94 O2 Delivery Nasal Cannula O2 Flow Rate 3.00 FiO2 96 Labs Labs Laboratory Tests 11/15/21 20:30 11/16/21 06:55 Exam Vital Signs Vital Signs Date Time Temp Pulse Resp B/P (MAP) Pulse Ox O2 Delivery O2 Flow Rate FiO2 11/16/21 16:19 36.9 86 24 131/78 94 Nasal Cannula 3.00 11/13/21 12:34 96 Physical Exam General: Somnolent but arousable to moderate touch. No acute distress. Eye: No xanthelasma. HENT: Normocephalic. Neck: Jugular venous pressure does not appear elevated. Respiratory: Lungs are clear to auscultation. Respirations are non-labored. Breath sounds are equal. Symmetrical chest wall expansion. Cardiovascular: Normal rate. Regular rhythm. No murmur. No gallop. 1+ bilateral pretibial edema. Gastrointestinal: Soft. Normal bowel sounds. Skin: Warm. Dry. Neurologic: Somnolent but arousable and oriented to person, place, time. Cranial nerves 3-11 grossly intact. Psychiatric: Flat affect today. Previously she was more jovial. Labs Laboratory Tests Test 11/15/21 20:13 11/15/21 20:30 11/16/21 06:11 11/16/21 06:55 Range/Units Glucometer 252 H 277 H 70-110 MG/DL Potassium Level 2.9 L 3.9 3.6-5.0 MMOL/L White Blood Count 21.9 H 4.3-11.0 10^3/uL Red Blood Count 2.49 L 3.80-5.11 10^6/uL Hemoglobin 6.9 *L 11.5-16.0 g/dL Hematocrit 21 L 35-52 % Mean Corpuscular Volume 85 80-99 fL Mean Corpuscular Hemoglobin 28 25-34 pg Mean Corpuscular Hemoglobin Concent 33 32-36 g/dL Red Cell Distribution Width 18.0 H 10.0-14.5 % Platelet Count 262 130-400 10^3/uL Mean Platelet Volume 10.4 9.0-12.2 fL Immature Granulocyte % (Auto) 7 % Neutrophils (%) (Auto) 85 H 42-75 % Lymphocytes (%) (Auto) 4 L 12-44 % Monocytes (%) (Auto) 4 0-12 % Eosinophils (%) (Auto) 0 0-10 % Basophils (%) (Auto) 0 0-10 % Neutrophils # (Auto) 18.6 H 1.8-7.8 10^3/uL Lymphocytes # (Auto) 0.9 L 1.0-4.0 10^3/uL Monocytes # (Auto) 0.8 0.0-1.0 10^3/uL Eosinophils # (Auto) 0.0 0.0-0.3 10^3/uL Basophils # (Auto) 0.0 0.0-0.1 10^3/uL Immature Granulocyte # (Auto) 1.5 H 0.0-0.1 10^3/uL Sodium Level 133 L 135-145 MMOL/L Chloride Level 94 L 98-107 MMOL/L Carbon Dioxide Level 27 21-32 MMOL/L Anion Gap 12 5-14 MMOL/L Blood Urea Nitrogen 12 7-18 MG/DL Creatinine 1.17 0.60-1.30 MG/DL Estimat Glomerular Filtration Rate 46 BUN/Creatinine Ratio 10 Glucose Level 301 H 70-105 MG/DL Calcium Level 7.6 L 8.5-10.1 MG/DL Corrected Calcium 8.9 8.5-10.1 MG/DL Magnesium Level 1.7 1.6-2.4 MG/DL Total Bilirubin 0.5 0.1-1.0 MG/DL Aspartate Amino Transf (AST/SGOT) 24 5-34 U/L Alanine Aminotransferase (ALT/SGPT) 11 0-55 U/L Alkaline Phosphatase 126 40-136 U/L Total Protein 5.9 L 6.4-8.2 GM/DL Albumin 2.4 L 3.2-4.5 GM/DL Test 11/16/21 10:38 11/16/21 15:57 11/16/21 16:44 Range/Units Glucometer 296 H 323 H 70-110 MG/DL Blood Gas Puncture Site LT RADIAL Blood Gas Patient Temperature 36.3 Arterial Blood pH 7.46 H 7.37-7.43 Arterial Blood Partial Pressure CO2 43 35-45 MMHG Arterial Blood Partial Pressure O2 62 L 79-93 MMHG Arterial Blood HCO3 31 H 23-27 MMOL/L Arterial Blood Total CO2 31.9 H 21.0-31.0 MMOL/L Arterial Blood Oxygen Saturation 93 L 94-100 % Arterial Blood Base Excess 6.4 H -2.5-2.5 MMOL/L Gonzalo Test YES-POS Blood Gas Ventilator Setting NO Blood Gas Inspired Oxygen 3L Diagnosis/Problems Diagnosis/Problems (1) Non-ST elevation myocardial infarction (NSTEMI), initial episode of care Assessment & Plan: She appears to have suffered a non-ST elevation myocardial infarction. Based upon the findings of her cardiac catheterization, I suspect she had a type II non-ST elevation due to supply/demand mismatch. She does have significant disease of the right coronary artery but no acute thrombotic occlusion. Therefore, I recommend we continue her on the present medical therapy. I would continue enoxaparin for a full 4 days or until discharge, whichever comes first. She may need high risk intervention to the right coronary artery but this would most likely require some sort of atherectomy which we do not presently offer at this hospital. She may need to discuss this with her regular elevator operator service after discharge. She should continue on aspirin, clopidogrel and high-dose statin medication. Blood pressure is better today. I will start her on low-dose beta-keerthi. (2) Acute on chronic heart failure with preserved ejection fraction (HFpEF) Assessment & Plan: Her chest x-ray from admission showed possible pulmonary edema. She remains on intravenous furosemide twice daily. I will obtain a follow-up chest x-ray tomorrow. (3) Peripheral arterial disease Assessment & Plan: At the time of her cardiac catheterization she was found to have total occlusion of the right superficial femoral artery. She was not aware of having peripheral arterial disease. She will need to have this followed by her primary elevator operator service at the outside facility after discharge. There are presently no signs of acute limb ischemia. (4) Mixed hyperlipidemia Assessment & Plan: Continue high-dose statin medication in light of the acute myocardial infarction. (5) Shock Assessment & Plan: This appears to have resolved. (6) Hypokalemia Status: Acute Assessment & Plan: Etiology unclear. She is receiving replacement therapy. (7) Stage 3 chronic kidney disease Assessment & Plan: We need to watch her renal function closely in light of the multiple acute issues. (8) Type 2 diabetes mellitus with complication Assessment & Plan: This is being managed by the hospitalist. (9) Obesity Assessment & Plan: She needs to be encouraged to work on weight loss. (10) Cigarette smoker Assessment & Plan: She is presently in a custodial facility and cannot smoke cigarettes. But she was smoking up until her most recent hospitalization earlier in the week. She needs to be encouraged to quit smoking. EDEN ROSARIO JR, MD Nov 16, 2021 19:18
[2021-11-16] MEDS: AMITRIPTYLINE 25 MG (ELAVIL) TAB PO SCH (20:24)
[2021-11-16] MEDS: rOPINIRole 1 MG (REQUIP) TABLET PO SCH (20:24)
[2021-11-16] MEDS: RT-ALBUTEROL/IPRATROPIUM 3 ML (DUONEB) VIAL IH SCH (22:05)
[2021-11-17 04:45] LABS: BASOPHILS % (AUTO) 0 % (0-10); EOSINOPHILS % (AUTO) 0 % (0-10); HEMATOCRIT 24 % (35-52); HEMOGLOBIN 7.8 g/dL (11.5-16.0); LYMPHOCYTES # (AUTO) 1.6 10^3/uL (1.0-4.0); LYMPHOCYTES % (AUTO) 8 % (12-44); MEAN CORPUSCULAR HEMOGLOBIN 28 pg (25-34); MEAN CORPUSCULAR HGB CONC 32 g/dL (32-36); MEAN CORPUSCULAR VOLUME 86 fL (80-99); MEAN PLATELET VOLUME 10.6 fL (9.0-12.2); MONOCYTES % (AUTO) 5 % (0-12); NEUTROPHILS # (AUTO) 15.5 10^3/uL (1.8-7.8); NEUTROPHILS % (AUTO) 79 % (42-75); PLATELET COUNT 245 10^3/uL (130-400); WHITE BLOOD COUNT 19.6 10^3/uL (4.3-11.0)
[2021-11-17 05:02] LABS: ALBUMIN 2.5 GM/DL (3.2-4.5); POTASSIUM 4.4 MMOL/L (3.6-5.0)
[2021-11-17 05:03] LABS: CALCIUM 7.9 MG/DL (8.5-10.1)
[2021-11-17 05:04] LABS: TOTAL PROTEIN 5.9 GM/DL (6.4-8.2)
[2021-11-17 05:06] LABS: BILIRUBIN,TOTAL 0.5 MG/DL (0.1-1.0)
[2021-11-17 05:08] LABS: CREATININE SERUM 1.25 MG/DL (0.60-1.30)
[2021-11-17 05:11] LABS: MAGNESIUM 1.8 MG/DL (1.6-2.4)
[2021-11-17] MEDS: LEVOTHYROXINE 88 MCG (LEVOTHORID) TAB PO SCH (05:31)
[2021-11-17] MEDS: FUROSEMIDE 40 MG/4 ML INJ (LASIX) IVP SCH ×2 (05:31→17:20)
[2021-11-17] MEDS: inSUlin ASPART (NovoLOG) 1 UNIT/0.01 ML (CHARGE PER UNIT) SC SCH ×4 (05:31→22:31)
[2021-11-17] MEDS: predniSONE 20 MG TAB PO SCH (05:31)
[2021-11-17] MEDS: MEROPENEM 500 MG/NS 100 ML IVPB IV SCH ×8 (05:31→23:46)
[2021-11-17] MEDS: PANTOPRAZOLE 40 MG (PROTONIX) TAB PO SCH (05:31)
[2021-11-17] MEDS: DICYCLOMINE 10 MG (BENTYL) CAP PO SCH ×4 (05:37→22:24)
[2021-11-17] MEDS: CALCIUM CARBONATE 600 MG (CALCARB) TAB PO SCH (09:48)
[2021-11-17] MEDS: CLOPIDOGREL 75 MG (PLAVIX) TABLET PO SCH (09:48)
[2021-11-17] MEDS: ASPIRIN 81 MG CHEW (CHILDREN'S ASA) PO SCH (09:48)
[2021-11-17] MEDS: LACTOBACILLUS ACIDOPHILUS (PROBIOTIC) CAPSULE PO SCH ×4 (09:48→17:42)
[2021-11-17] MEDS: GABAPENTIN 400 MG (NEURONTIN) CAP PO SCH ×4 (09:48→22:25)
[2021-11-17] MEDS: EMPAGLIFLOZIN 10 MG TABLET (JARDIANCE) PO SCH (09:48)
[2021-11-17] MEDS: polyethylene glycoL POWDER 17 GM (MIRALAX) PACK PO SCH ×2 (09:49→22:25)
[2021-11-17] MEDS: NICOTINE PATCH REMOVAL TP SCH (09:49)
[2021-11-17] MEDS: NICOTINE 21 MG (NICODERM) PATCH TD SCH (09:49)
[2021-11-17] MEDS: ENOXAPARIN 40 MG/0.4 ML (LOVENOX) SYR SQ SCH (09:49)
--- NOTE | 2021-11-17 09:53 | Diagnostic Imaging Report ---
INDICATION: Pneumonia, followup. TIME OF EXAM: 9:13 AM. COMPARISON: 01/13/2020. FINDINGS: The heart size is stable. Bilateral mixed interstitial and airspace infiltrates are noted, greatest in the left mid to lower lung field. No significant effusion is seen. There is no pneumothorax. The right-sided line has its tip overlying the SVC. IMPRESSION: Diffuse interstitial changes which may in part be chronic, per prior chest radiograph from 2019; however, the patient has developed some apparent new infiltrate in the right upper lobe and left base when compared with the prior exam, consistent with superimposed pneumonia. Dictated by: Dictated on workstation # [id number]
[2021-11-17] MEDS: RT-ALBUTEROL/IPRATROPIUM 3 ML (DUONEB) VIAL IH SCH ×2 (10:06→21:36)
[2021-11-17] MEDS: RT--FLUTICASONE/SALMETEROL 232-14 (AIRDUO RespiCLICK) IH SCH ×2 (10:06→21:36)
--- NOTE | 2021-11-17 10:54 | Physical Therapy Progress Note ---
Therapy Progress Note Attempted to see patient for PT treatment. She adamantly refuses any activity. Patient educated on benefits of activity for healing, getting out of bed and staying active to prevent further debility, however again refuses. "I just don't want to do anything." Will attempt again next PT visit RACIEL OGLESBY PT Nov 17, 2021 10:54
--- NOTE | 2021-11-17 11:10 | Occ Therapy Progress Note ---
Therapy Progress Note Pt alert, lying in bed. Pt adamantly refused participating with OT. Pt stated that we do not care about her and only in room because we are getting paid to. Pt stated that she is not going to do anything and when asked why stated "I do not want too." Pt wanted MAZA to tell this to the physician. Attempted to educate pt on the benefits of moving and pt continued to refuse. Reported this to nrsg. Will check on pt tomorrow. 1 visit, refusal [phone] ANDREW CHEEMA Nov 17, 2021 11:10
[2021-11-17 11:47] VITALS: BP 132/70
--- NOTE | 2021-11-17 12:46 | Progress Note - Hospitalist ---
CHRIS ARGUETA 11/17/21 1246: Subjective HPI/CC On Admission Date Seen by Provider: Nov 17, 2021 Time Seen by Provider: 08:30 Chief complaint: Severe sepsis History of present illness: This is a 71-year-old white female known to me from 2 prior hospital stays recently, both in the ICU with the first due to ischemic bowel status post resection with intubation and extubation then readmission for severe sepsis from UTI/pneumonia/colitis discharged to [facility] is recovering from fracture. She has severe COPD and continues to smoke and she has severe comorbidities that have added up the last 3 weeks. She presented with elevated troponin continue to increase catheterization by Revealing small vessel disease and no non-STEMI. UTI noted so placed on meropenem and vancomycin along with IV fluid resuscitation and pressor therapy. Hydrocortisone initiated due to prednisone dependent state high risk for adrenal insufficiency. Currently she is doing much better and denies any pain. Subjective/Events-last exam Patient is not in a good mood this morning. But is improved from last night. She doesn't want to cooperate with my questions and states she is "doing great" and has "no complaints". Patient did refuse OT. Wants to go back to [facility]. She is tired of being in the hospital. Does complain of oxygen drying out her nares Review of Systems Gastrointestinal: Diarrhea Objective Exam Vital Signs Vital Signs Date Time Temp Pulse Resp B/P (MAP) Pulse Ox O2 Delivery O2 Flow Rate FiO2 11/17/21 11:47 36.2 82 20 132/70 (90) 97 Nasal Cannula 3.50 11/13/21 12:34 96 Capillary Refill : Less Than 3 Seconds General Appearance: Chronically ill, Obese Respiratory: No Accessory Muscle Use, No Respiratory Distress Cardiovascular: Regular Rate, Rhythm, Normal Peripheral Pulses Rectal: Deferred Neurologic/Psychiatric: Alert, Oriented x3, Other (agitated) Results/Procedures Lab Laboratory Tests 11/17/21 04:37 Patient resulted labs reviewed. Assessment/Plan Assessment and Plan Assess & Plan/Chief Complaint Assessment: Severe sepsis Pulmonary edema or PNA on CXR Status post ischemic colitis status post ex lap with resection of terminal ileum and right hemicolon with anastomosis on 10/21/[address] FERNANDEZ UTI CAD History of [place] Elevated troponin but cardiac cath showing small vessel disease no STEMI COPD Advanced age Anemia Hypokalemia Plan: Meropenem Vancomycin IV fluids Levophed ICU monitoring Patient becoming more more declined 11/15: Potassium replacement Possible unit of RBCs Continue Vanc/Bhargavi Continue Levophed Continue Fluids ICU monitoring 11/16: Unit of blood Probiotic Transfer to floor possible discharge tomorrow 11/17: Discharge to [facility] this afternoon/tomorrow depending on insurance Nasal saline Mechanical Meter Tester for formal advanced directive conversation KATYA JARQUIN DO 11/18/21 0542: Subjective Subjective/Events-last exam Pt doing a lot better Was agitated and paranoid yesterday Responded to antipsychotics Hgb is 7.8 Checked meds and labs Hopefully will [facility] to [facility] tomorrow Advance directive requested from this provider to social work Updated daughter 1600 when patient was in a major delirium and after a great deal conversation she will sign DNR paperwork Review of Systems General: Fatigue, Malaise Neurological: Confusion Objective Exam General Appearance: No Apparent Distress, WD/WN, Chronically ill, Obese Respiratory: Lungs Clear, Normal Breath Sounds Cardiovascular: Regular Rate, Rhythm Neurologic/Psychiatric: Alert, Oriented x3 Assessment/Plan Assessment and Plan Assess & Plan/Chief Complaint DNR signed Delirium management Supervisory-Addendum Brief Verification & Attestation Participated in pt care: history, MDM, physical Personally performed: exam, history, MDM, supervision of care Care discussed with: Medical Student Procedures: n/a Results interpretation: Verified all documentation Verification and Attestation of Medical Student E/M Service A medical student performed and documented this service in my presence. I reviewed and verified all information documented by the medical student and made modifications to such information, when appropriate. I personally performed the physical exam and medical decision making. Katya Jarquin Nov 18, 2021,05:41 CHRIS ARGUETA Nov 17, 2021 12:46 KATYA JARQUIN DO Nov 18, 2021 05:42
[2021-11-17 15:26] VITALS: BP 164/93
[2021-11-17] MEDS ORDERED: WATER (STERILE) FOR INJ 10 ML BTL INJ ONE (15:30)
[2021-11-17] MEDS ORDERED: ZIPRASIDONE 20 MG INJ (GEODON) VIAL IM ONE (15:30)
--- NOTE | 2021-11-17 16:31 | Physician Query Clarification ---
Physician Query-General Query to Physician: The medical record reflects the following clinical scenario: The patient, in the setting of History/Risk factors, Severe Sepsis, Anemia Clinical Findings Troponin 8.74, 22.789, 17.745 and 11.341, Documentation from Cardiac cath report."elevated troponin level consistent with a type II non-ST segment elevation VT due to supply demand mismatch possibly being caused by sepsis and her metabolic derangements" Hgb down to 6.9 Treatment Cardiology consult, Cardiac cath Question: Do you agree with the impression of Type II NSTEMI per Dr. Cresencio Mclaughlin? 1. Yes; will document NSTEMI, present on admission in the Progress Notes 2. No; will continue current documentation in the Progress Notes 3. Other; will document explanation of clinical findings 4. Clinically undetermined; no explanation for clinical findings Please clarify and document your clinical opinion in the Progress Notes and Discharge Summary including the definitive and/or presumptive diagnosis, (suspected or probable), related to the above clinical findings. Please include clinical findings supporting your diagnosis. In responding to this query, please exercise your independent professional judgment. The purpose of this communication is to more accurately reflect the complexity of your patients condition. The fact that a question is asked does not imply that any particular answer is desired or expected. Please remember a lack of response to the above will prompt a phone page by CDI/coding staff Thank you for timely response to this clarification. Anand Rios MSN, RN Clinical Frame Welder Cargo Utility Trailers [phone] [email or web address] PHYSICIAN RESPONSE: Based on the clinical findings in the record, please respond to the query above on this document as an addendum. Physician Response: Physician Response yes If you have questions please contact: Manager Protein: Ext: Thank you for your time and cooperation. Clinical Frame Welder Cargo Utility Trailers/Manager Protein This is a permanent part of the medical record ANAND RIOS Nov 17, 2021 16:31 DAVEY JARQUIN DO Nov 17, 2021 20:41
--- NOTE | 2021-11-17 16:43 | Physician Query Clarification ---
Physician Query-General Query to Physician: The medical record reflects the following clinical evidence: Clinical Indicators: BNP on admission 23,038, Chest Xray "...favored to relate to underlying pulmonary edema" Echo showing normal Systolic function and Grade 1 Diastolic Dysfunction Risk Factor(s): VA/Hx VA, Fluid boluses for hypotension, sepsis Treatment: Lasix IV, I and O, Cardiology consult 1. Acute on chronic diastolic (congestive) heart failure, Present on admission 2. Other explanation of clinical findings 3. Unable to determine (no explanation for clinical findings) Please clarify and document your clinical opinion in the progress notes and discharge summary including the definitive and/or presumptive diagnosis, (suspected or probable), related to the above clinical findings. Please include clinical findings supporting your diagnosis. Opal Rios MSN, RN Clinical Corrosion Prevention Metal Sprayer [phone] [email or web address] PHYSICIAN RESPONSE: Based on the clinical findings in the record, please respond to the query above on this document as an addendum. Physician Response: Physician Response 1 If you have questions please contact: Cattle Trader: Ext: Thank you for your time and cooperation. Clinical Corrosion Prevention Metal Sprayer/Cattle Trader This is a permanent part of the medical record OPAL RIOS Nov 17, 2021 16:43 DAVEY JARQUIN DO Nov 17, 2021 20:41
--- NOTE | 2021-11-17 17:00 | Physician Query Clarification ---
Physician Query-General Query to Physician: The medical record reflects the following clinical evidence: Clinical Indicators: Admission BP 88/32, After fluids 86/47, after Norepi 112/64, Elevated troponin, WBC 16.0, Cardiology documenting: Shock with SBP of 70.. being treated for sepsis. Risk Factor(s): UTI, Sepsis, Treatment: 2L IV fluid boluses, Norepi gtt, IV ABX, Vanco and Meropenem, 1. Severe sepsis with septic shock, present on admission 2. Other explanation of clinical findings 3. Unable to determine (no explanation for clinical findings) Please clarify and document your clinical opinion in the progress notes and discharge summary including the definitive and/or presumptive diagnosis, (suspected or probable), related to the above clinical findings. Please include clinical findings supporting your diagnosis. Opal Rios MSN, RN Clinical Rehabilitation Aide/Scheduler [phone] [email or web address] PHYSICIAN RESPONSE: Based on the clinical findings in the record, please respond to the query above on this document as an addendum. Physician Response: Physician Response 1 If you have questions please contact: Match Marker: Ext: Thank you for your time and cooperation. Clinical Rehabilitation Aide/Scheduler/Match Marker This is a permanent part of the medical record OPAL RIOS Nov 17, 2021 17:00 DAVEY JARQUIN DO Nov 17, 2021 20:41
--- NOTE | 2021-11-17 17:01 | Cardiology Progress Note ---
Progress Note-Cardiology Events since last exam Date Seen by Provider: Nov 17, 2021 Time Seen by Provider: 16:56 Events since last exam I am following her due to non-ST elevation myocardial infarction. Shortly b efore I saw her, the patient had been somewhat agitated and received intravenous Ativan and haloperidol. When I saw her, she was sedated. She would open her eyes and speak to me but fall asleep during our conversation. She denied chest discomfort, dyspnea, palpitations, or syncope. No change in her chronic, mild ankle edema. Certain portions of this document may have been dictated utilizing voice recognition technology. Inherent to this technology, typographical and grammatical errors may exist. As much as I am diligent to identify and correct these mistakes, some errors may remain in the document. Vitals Last set of Vitals Signs Vital Signs 11/13/21 11/17/21 12:34 15:26 Temp 36.1 Pulse 69 Resp 16 B/P (MAP) 164/93 (116) Pulse Ox 97 O2 Delivery Nasal Cannula O2 Flow Rate 3.50 FiO2 96 Labs Labs Laboratory Tests 11/17/21 04:37 Exam Vital Signs Vital Signs Date Time Temp Pulse Resp B/P (MAP) Pulse Ox O2 Delivery O2 Flow Rate FiO2 11/17/21 15:26 36.1 69 16 164/93 (116) 97 Nasal Cannula 3.50 11/13/21 12:34 96 Physical Exam General: Somnolent but arousable to light touch. No acute distress. Eye: No xanthelasma. HENT: Normocephalic. Neck: Jugular venous pressure does not appear elevated. Respiratory: Lungs are clear to auscultation. Respirations are non-labored. Breath sounds are equal. Symmetrical chest wall expansion. Cardiovascular: Normal rate. Regular rhythm. No murmur. No gallop. 1+ bilateral pretibial edema. Gastrointestinal: Soft. Normal bowel sounds. Skin: Warm. Dry. Neurologic: Somnolent but arousable and oriented to person, place. Cranial nerves 3-11 grossly intact. Psychiatric: Flat affect, probably related to sedation. Previously she was more jovial. Labs Laboratory Tests Test 11/16/21 20:05 11/17/21 04:37 11/17/21 10:24 11/17/21 15:18 Range/Units Glucometer 263 H 224 H 222 H 70-110 MG/DL White Blood Count 19.6 H 4.3-11.0 10^3/uL Red Blood Count 2.83 L 3.80-5.11 10^6/uL Hemoglobin 7.8 L 11.5-16.0 g/dL Hematocrit 24 L 35-52 % Mean Corpuscular Volume 86 80-99 fL Mean Corpuscular Hemoglobin 28 25-34 pg Mean Corpuscular Hemoglobin Concent 32 32-36 g/dL Red Cell Distribution Width 17.7 H 10.0-14.5 % Platelet Count 245 130-400 10^3/uL Mean Platelet Volume 10.6 9.0-12.2 fL Immature Granulocyte % (Auto) 8 % Neutrophils (%) (Auto) 79 H 42-75 % Lymphocytes (%) (Auto) 8 L 12-44 % Monocytes (%) (Auto) 5 0-12 % Eosinophils (%) (Auto) 0 0-10 % Basophils (%) (Auto) 0 0-10 % Neutrophils # (Auto) 15.5 H 1.8-7.8 10^3/uL Lymphocytes # (Auto) 1.6 1.0-4.0 10^3/uL Monocytes # (Auto) 1.0 0.0-1.0 10^3/uL Eosinophils # (Auto) 0.0 0.0-0.3 10^3/uL Basophils # (Auto) 0.0 0.0-0.1 10^3/uL Immature Granulocyte # (Auto) 1.5 H 0.0-0.1 10^3/uL Sodium Level 134 L 135-145 MMOL/L Potassium Level 4.4 3.6-5.0 MMOL/L Chloride Level 96 L 98-107 MMOL/L Carbon Dioxide Level 30 21-32 MMOL/L Anion Gap 8 5-14 MMOL/L Blood Urea Nitrogen 16 7-18 MG/DL Creatinine 1.25 0.60-1.30 MG/DL Estimat Glomerular Filtration Rate 42 BUN/Creatinine Ratio 13 Glucose Level 208 H 70-105 MG/DL Calcium Level 7.9 L 8.5-10.1 MG/DL Corrected Calcium 9.1 8.5-10.1 MG/DL Magnesium Level 1.8 1.6-2.4 MG/DL Total Bilirubin 0.5 0.1-1.0 MG/DL Aspartate Amino Transf (AST/SGOT) 19 5-34 U/L Alanine Aminotransferase (ALT/SGPT) 10 0-55 U/L Alkaline Phosphatase 125 40-136 U/L Total Protein 5.9 L 6.4-8.2 GM/DL Albumin 2.5 L 3.2-4.5 GM/DL Test 11/17/21 16:13 Range/Units Lab Scanned Report Transfusion Reaction Form [id number] Diagnosis/Problems Diagnosis/Problems (1) Non-ST elevation myocardial infarction (NSTEMI), initial episode of care Assessment & Plan: She appears to have suffered a non-ST elevation myocardial infarction. Based upon the findings of her cardiac catheterization, I suspect she had a type II non-ST elevation due to supply/demand mismatch. She does have significant disease of the right coronary artery but no acute thrombotic occlusion. She may need high risk intervention to the right coronary artery but this would most likely require some sort of atherectomy which we do not presently offer at this hospital. Therefore, I recommend we continue her on the present medical therapy. She received approximately 4 days of therapeutic dosing on enoxaparin and this has now been changed over to DVT prophylaxis dose. She should continue on aspirin, clopidogrel, beta-keerthi, and high-dose statin medication. (2) Acute on chronic heart failure with preserved ejection fraction (HFpEF) Assessment & Plan: Her chest x-ray from admission showed possible pulmonary edema. She remains on intravenous furosemide twice daily. Her chest x-ray from today shows possible pneumonia. She has been receiving antibiotics for several days. I will continue the intravenous furosemide for the time being. (3) Peripheral arterial disease Assessment & Plan: At the time of her cardiac catheterization she was found to have total occlusion of the right superficial femoral artery. She was not aware of having peripheral arterial disease. She will need to have this followed by her primary mopper at the outside facility after discharge. There are presently no signs of acute limb ischemia. (4) Mixed hyperlipidemia Assessment & Plan: Continue high-dose statin medication in light of the acute myocardial infarction. (5) Stage 3 chronic kidney disease Assessment & Plan: We need to watch her renal function closely in light of the multiple acute issues and ongoing use of intravenous furosemide. (6) Obesity Assessment & Plan: She needs to be encouraged to work on weight loss. (7) Cigarette smoker Assessment & Plan: She is presently in a group home facility and cannot smoke cigarettes. But she was smoking up until her most recent hospitalization earlier in the week. She needs to be encouraged to quit smoking. EDEN ROSARIO JR, MD Nov 17, 2021 17:01
[2021-11-17 20:33] VITALS: BP 132/70
[2021-11-17 20:35] VITALS: BP 154/81
[2021-11-17] MEDS: AMITRIPTYLINE 25 MG (ELAVIL) TAB PO SCH (22:25)
[2021-11-17] MEDS: rOPINIRole 1 MG (REQUIP) TABLET PO SCH (22:26)
[2021-11-18 00:55] VITALS: BP 119/66
[2021-11-18 03:50] VITALS: BP 112/57
[2021-11-18 04:17] LABS: BASOPHILS % (AUTO) 0 % (0-10); EOSINOPHILS % (AUTO) 0 % (0-10); HEMATOCRIT 24 % (35-52); HEMOGLOBIN 7.5 g/dL (11.5-16.0); LYMPHOCYTES # (AUTO) 1.7 10^3/uL (1.0-4.0); LYMPHOCYTES % (AUTO) 12 % (12-44); MEAN CORPUSCULAR HEMOGLOBIN 27 pg (25-34); MEAN CORPUSCULAR HGB CONC 31 g/dL (32-36); MEAN CORPUSCULAR VOLUME 86 fL (80-99); MEAN PLATELET VOLUME 10.9 fL (9.0-12.2); MONOCYTES # (AUTO) 0.7 10^3/uL (0.0-1.0); MONOCYTES % (AUTO) 5 % (0-12); NEUTROPHILS # (AUTO) 11.2 10^3/uL (1.8-7.8); NEUTROPHILS % (AUTO) 75 % (42-75); PLATELET COUNT 230 10^3/uL (130-400); WHITE BLOOD COUNT 14.9 10^3/uL (4.3-11.0)
[2021-11-18 04:19] LABS: ALBUMIN 2.3 GM/DL (3.2-4.5)
[2021-11-18 04:20] LABS: POTASSIUM 3.6 MMOL/L (3.6-5.0)
[2021-11-18 04:22] LABS: TOTAL PROTEIN 5.3 GM/DL (6.4-8.2)
[2021-11-18 04:24] LABS: BILIRUBIN,TOTAL 0.5 MG/DL (0.1-1.0)
[2021-11-18 04:26] LABS: CREATININE SERUM 1.18 MG/DL (0.60-1.30)
[2021-11-18 04:28] LABS: MAGNESIUM 1.6 MG/DL (1.6-2.4)
[2021-11-18] MEDS: PANTOPRAZOLE 40 MG (PROTONIX) TAB PO SCH (06:30)
[2021-11-18] MEDS: DICYCLOMINE 10 MG (BENTYL) CAP PO SCH ×2 (06:31→11:55)
[2021-11-18] MEDS: inSUlin ASPART (NovoLOG) 1 UNIT/0.01 ML (CHARGE PER UNIT) SC SCH ×2 (06:31→11:55)
[2021-11-18] MEDS: FUROSEMIDE 40 MG/4 ML INJ (LASIX) IVP SCH (06:31)
[2021-11-18] MEDS: predniSONE 20 MG TAB PO SCH (06:31)
[2021-11-18] MEDS: MEROPENEM 500 MG/NS 100 ML IVPB IV SCH ×4 (06:31→11:57)
[2021-11-18] MEDS: LEVOTHYROXINE 88 MCG (LEVOTHORID) TAB PO SCH (06:31)
[2021-11-18 08:00] VITALS: BP 110/58
[2021-11-18] MEDS: ENOXAPARIN 40 MG/0.4 ML (LOVENOX) SYR SQ SCH (09:10)
[2021-11-18] MEDS: GABAPENTIN 400 MG (NEURONTIN) CAP PO SCH (09:10)
[2021-11-18] MEDS: NICOTINE 21 MG (NICODERM) PATCH TD SCH (09:10)
[2021-11-18] MEDS: LACTOBACILLUS ACIDOPHILUS (PROBIOTIC) CAPSULE PO SCH (09:10)
[2021-11-18] MEDS: CLOPIDOGREL 75 MG (PLAVIX) TABLET PO SCH (09:10)
[2021-11-18] MEDS: ASPIRIN 81 MG CHEW (CHILDREN'S ASA) PO SCH (09:11)
[2021-11-18] MEDS: EMPAGLIFLOZIN 10 MG TABLET (JARDIANCE) PO SCH (09:11)
[2021-11-18] MEDS: NICOTINE PATCH REMOVAL TP SCH (09:11)
[2021-11-18] MEDS: polyethylene glycoL POWDER 17 GM (MIRALAX) PACK PO SCH (09:11)
--- NOTE | 2021-11-18 09:52 | Physical Therapy Progress Note ---
Therapy Progress Note Patient declined PT as PT entered room stating,"You can just turn around and walk out. I'm not doing anything. I'm done." RN notified. 1 ref JO BARTON PT Nov 18, 2021 09:52
[2021-11-18] MEDS: CALCIUM CARBONATE 600 MG (CALCARB) TAB PO SCH (10:01)
[2021-11-18] MEDS: ALPRAZolam 0.5 MG (XANAX) TAB PO PRN (10:01)
--- NOTE | 2021-11-18 11:22 | Occ Therapy Progress Note ---
Therapy Progress Note MAZA entered room and introduced self, pt began shaking head and saying she was done and is not going to do anything. Family present in room and asked pt 'why', pt stated that she was done and was not going to argue about it. MAZA will check on pt at next available time. 1, refusal ANDREW CHEEMA Nov 18, 2021 11:22
[2021-11-18] MEDS ORDERED: ALPR0.5T7 PO (11:53)
[2021-11-18] MEDS ORDERED: HYDR-3820 PO (11:53)
--- NOTE | 2021-11-18 11:54 | Discharge Summary ---
Discharge Summary Hospital Course Problems/Dx: (1) Non-ST elevation myocardial infarction (NSTEMI), initial episode of care (2) Acute on chronic heart failure with preserved ejection fraction (HFpEF) (3) Peripheral arterial disease (4) Mixed hyperlipidemia (5) Stage 3 chronic kidney disease (6) Obesity (7) Cigarette smoker Hospital Course Date of Admission: Nov 13, 2021 at 13:57 Admission Diagnosis : Family Physician/Provider: Jayjay Rendon MD Date of Discharge: 11/18/21 Discharge Diagnosis: Severe sepsis, UTI, pneumonia, severe COPD, hypertension, adrenal insufficiency Hospital Course: Patient is a 71 year old female who was admitted to [facility] ICU on 11/13 with an admitting diagnosis of septic shock, elevated troponin, and COPD exacerbation. Patient underwent cardiac catheterization by Dr. Mclaughlin, Cardiology, which revealed small vessel disease and a type II non-ST elevated myocardial infarction. Patient was also noted to have a UTI and was started on vancomycin and meropenem along with fluids and vasopressors. Patient was also initiated on hydrocoritsone due to prednisone dependency. On 11/14, Dr. Lozano, General Surge ry, placed a central line for better access and more port site for medication delivery. On 11/15, Patient was noted to have a hemoglobin of 7 and a potassium of 2.7. Potassium replacement began and hemoglobin was monitored. Patient came off of vasopressors and was transferred to the Cardiac Step-down unit. On 11/16, Patient had a hemoglobin of 6.9 and was given a unit of RBCs. Insurance information was submitted for approval to [facility]. Patient was transferred to the fourth floor. In the evening, patient was agitated and paranoid, but responded to antipsychotics. On 11/17, patient was feeling better in the morning and wanting to go to [facility]. Hemoglobin was a 7.8 after blood transfusion. Around 1600, patient had an episode of major delirium. Dr. Lindsey spoke with the patient's daughter, who came from work to see her mother, about code status. Initially daughter wanted to stay full code, but eventually decided to go DNR. On 11/18, Patient was deemed fit to return to [facility], and after insurance approval, patient was discharged to [facility]. ELLIECHRIS Nov 18, 2021 16:18 Labs and Pending Lab Test: Laboratory Tests 11/17/21 15:18: Glucometer 222H 11/17/21 16:13: Lab Scanned Report Transfusion Reaction Form 11/17/21 20:42: Glucometer 241H 11/18/21 04:00: White Blood Count 14.9H, Red Blood Count 2.83L, Hemoglobin 7.5L, Hematocrit 24L, Mean Corpuscular Volume 86, Mean Corpuscular Hemoglobin 27, Mean Corpuscular Hemoglobin Concent 31L, Red Cell Distribution Width 17.4H, Platelet Count 230, Mean Platelet Volume 10.9, Immature Granulocyte % (Auto) 8, Neutrophils (%) (Auto) 75, Lymphocytes (%) (Auto) 12, Monocytes (%) (Auto) 5, Eosinophils (%) (Auto) 0, Basophils (%) (Auto) 0, Neutrophils # (Auto) 11.2H, Lymphocytes # (Auto) 1.7, Monocytes # (Auto) 0.7, Eosinophils # (Auto) 0.0, Basophils # (Auto) 0.0, Immature Granulocyte # (Auto) 1.2H, Sodium Level 138, Potassium Level 3.6, Chloride Level 96L, Carbon Dioxide Level 32, Anion Gap 10, Blood Urea Nitrogen 20H, Creatinine 1.18, Estimat Glomerular Filtration Rate 45, BUN/Creatinine Ratio 17, Glucose Level 171H, Calcium Level 8.0L, Corrected Calcium 9.4, Magnesium Level 1.6, Total Bilirubin 0.5, Aspartate Amino Transf (AST/SGOT) 15, Alanine Aminotransferase (ALT/SGPT) 10, Alkaline Phosphatase 109, Total Protein 5.3L, Albumin 2.3L 11/18/21 05:50: Glucometer 156H 11/18/21 11:03: Glucometer 277H Microbiology 11/13/21 MRSA Screen - Final, Complete MRSA not isolated 11/13/21 Blood Culture - Preliminary, Resulted No growth 11/13/21 Urine Culture - Final, Complete NO GROWTH Home Meds Active Alprazolam 0.5 Mg Tablet 0.5 Mg PO Q8H PRN Hydrocodone-Acetamin 10-325 mg (Hydrocodone/Acetaminophen) 1 Each Tablet 1 Each PO Q4H PRN Reported Iprat-Albut 0.5-3(2.5) mg/3 ml (Ipratropium/Albuterol Sulfate) 3 Ml Ampul.neb 3 Ml IH BID Symbicort 160-4.5 Mcg Inhaler (Budesonide/Formoterol Fumarate) 10.2 Gm Hfa.aer.ad 2 Puff IH BID Miralax (Polyethylene Glycol 3350) 17 Gm Powd.pack 8.5 Gm PO BID Dicyclomine HCl 10 Mg Capsule 10 Mg PO ACHS Atorvastatin Calcium 80 Mg Tablet 80 Mg PO HS Amitriptyline HCl 25 Mg Tablet 25 Mg PO HS Ropinirole HCl 2 Mg Tablet 4 Mg PO HS TAKES 2 (2MG) TABS Novolin N (Insulin NPH Human Isophane) 100 Unit/1 Ml Vial 10 Unit SQ BID Novolin R (Insulin Regular, Human) 100 Unit/1 Ml Vial 10 Unit SC TID Pantoprazole Sodium 40 Mg Tablet.dr 40 Mg PO DAILY [place] 3 1,000 mg Softgel ([place]-3 Fatty Acids/Fish Oil) 1 Each Capsule 1 Each PO DAILY Jardiance (Empagliflozin) 10 Mg Tablet 10 Mg PO DAILY Levothyroxine Sodium 88 Mcg Tablet 88 Mcg PO DAILY Tizanidine HCl 2 Mg Tablet 2 Mg PO TID PRN Enoxaparin Sodium 40 Mg/0.4 Ml Syringe 40 Mg SQ DAILY 14 Days GIVE FOR 14 DAYS- END DATE 11-25-2021 Gabapentin 400 Mg Capsule 400 Mg PO TID Clopidogrel (Clopidogrel Bisulfate) 75 Mg Tablet 75 Mg PO DAILY Aspirin EC (Aspirin) 81 Mg Tablet.dr 81 Mg PO DAILY Prednisone 5 Mg Tablet 5 Mg PO DAILY Calcium Carbonate 600 Mg Tablet 600 Mg PO DAILY Torsemide 20 Mg Tablet 20 Mg PO DAILY Assessment/Pt Instructions PCP in 1 week Discharge Planning: <30 minutes discharge planning Discharge Instructions Discharge Diet: ADA Diet Discharge Physical Examination Vital Signs Vital Signs Date Time Temp Pulse Resp B/P (MAP) Pulse Ox O2 Delivery O2 Flow Rate FiO2 11/18/21 08:03 Nasal Cannula 3.00 11/18/21 08:00 36.2 75 20 110/58 (75) 95 11/13/21 12:34 96 General Appearance: No Apparent Distress, WD/WN, Chronically ill, Obese Allergies: Coded Allergies: Penicillins (Unverified Adverse Reaction, Unknown, 01/16/21) cephalexin (Unverified Adverse Reaction, Unknown, 01/16/21) ciprofloxacin (Unverified Adverse Reaction, Unknown, 01/16/21) erythromycin base (Unverified Adverse Reaction, Unknown, 01/16/21) Discharge Summary Date of Admission Nov 13, 2021 at 13:57 Date of Discharge Discharge Date: Nov 18, 2021 Admission Diagnosis Assessment: Severe sepsis Status post ischemic colitis status post ex lap with resection of terminal ileum and right hemicolon with anastomosis on 10/21/[address] FERNANDEZ UTI complicated time CAD History of [place] Elevated troponin but cardiac cath showing small vessel disease no STEMI COPD with continued smoking Advanced age Anemia Plan: Meropenem Vancomycin IV fluids Levophed ICU monitoring Patient becoming more more declined Discharge Diagnosis DNR signed Delirium management (1) Non-ST elevation myocardial infarction (NSTEMI), initial episode of care Assessment & Plan: She appears to have suffered a non-ST elevation myocardial infarction. Based upon the findings of her cardiac catheterization, I suspect she had a type II non-ST elevation due to supply/demand mismatch. She does have significant disease of the right coronary artery but no acute thrombotic occlusion. She may need high risk intervention to the right coronary artery b ut this would most likely require some sort of atherectomy which we do not presently offer at this hospital. Therefore, I recommend we continue her on the present medical therapy. She received approximately 4 days of therapeutic dosing on enoxaparin and this has now been changed over to DVT prophylaxis dose. She should continue on aspirin, clopidogrel, beta-keerthi, and high-dose statin medication. (2) Acute on chronic heart failure with preserved ejection fraction (HFpEF) Assessment & Plan: Her chest x-ray from admission showed possible pulmonary edema. She remains on intravenous furosemide twice daily. Her chest x-ray from today shows possible pneumonia. She has been receiving antibiotics for several days. I will continue the intravenous furosemide for the time being. (3) Peripheral arterial disease Assessment & Plan: At the time of her cardiac catheterization she was found to have total occlusion of the right superficial femoral artery. She was not aware of having peripheral arterial disease. She will need to have this followed by her primary home health nurse licensed practical at the outside facility after discharge. There are presently no signs of acute limb ischemia. (4) Mixed hyperlipidemia Assessment & Plan: Continue high-dose statin medication in light of the acute myocardial infarction. (5) Stage 3 chronic kidney disease Assessment & Plan: We need to watch her renal function closely in light of the multiple acute issues and ongoing use of intravenous furosemide. (6) Obesity Assessment & Plan: She needs to be encouraged to work on weight loss. (7) Cigarette smoker Assessment & Plan: She is presently in a fpc facility and cannot smoke cigarettes. But she was smoking up until her most recent hospitalization earlier in the week. She needs to be encouraged to quit smoking. DAVEY JARQUIN DO Nov 18, 2021 11:54
--- NOTE | 2021-11-18 11:54 | Discharge Inst-Skilled Nursing ---
Discharge Inst-Skilled NF Reconcile Patient Problems Problems Reviewed?: Yes Chief Complaint Chief complaint: Severe sepsis History of present illness: This is a 71-year-old white female known to me from 2 prior hospital stays recently, both in the ICU with the first due to ischemic bowel status post resection with intubation and extubation then readmission for severe sepsis from UTI/pneumonia/colitis discharged to [facility] Khan is recovering from fracture. She has severe COPD and continues to smoke and she has severe comorbidities that have added up the last 3 weeks. She presented with elevated troponin continue to increase catheterization by Revealing small vessel disease and no non-STEMI. UTI noted so placed on meropenem and vancomycin along with IV fluid resuscitation and pressor therapy. [place] cortisone initiated due to prednisone dependent state high risk for adrenal insufficiency. Currently she is doing much better and denies any pain. Patient Instructions Patient Problems: Debility Consult/Follow Up/Orders Follow Up Appt.: PCP 2 weeks Skilled NF Admit to: Certification (SNF) I certify that SNF services are required to be given on an inpatient basis because of the above named patient's need for residential care on a continuing basis for the conditions(s) for which he/she was receiving inpatient hospital services prior to his/her transfer to the SNF. Assisted Facility Order: Nursing Services, Admitting Supervisor-Evaluate & Treat, Physical Therapy-Evaluate & Treat Oxygen Delivery Method: Nasal Cannula Discharge Diet: ADA Diet Resuscitation Status: Do Not Resuscitate New & Resume Previous Orders Continued Medications: Alprazolam (Alprazolam) 0.5 Mg Tablet 0.5 MG PO Q8H PRN for ANXIETY, #15 TAB (This prescription has been renewed) Amitriptyline HCl (Amitriptyline HCl) 25 Mg Tablet 25 MG PO HS, TAB Aspirin (Aspirin EC) 81 Mg Tablet.dr 81 MG PO DAILY, TAB Atorvastatin Calcium (Atorvastatin Calcium) 80 Mg Tablet 80 MG PO HS, TAB Budesonide/Formoterol Fumarate (Symbicort 160-4.5 Mcg Inhaler) 10.2 Gm Hfa.aer.ad 2 PUFF IH BID, EA Calcium Carbonate (Calcium Carbonate) 600 Mg Tablet 600 MG PO DAILY, TAB Clopidogrel Bisulfate (Clopidogrel) 75 Mg Tablet 75 MG PO DAILY, TAB Dicyclomine HCl (Dicyclomine HCl) 10 Mg Capsule 10 MG PO ACHS, CAP Empagliflozin (Jardiance) 10 Mg Tablet 10 MG PO DAILY, TAB Enoxaparin Sodium (Enoxaparin Sodium) 40 Mg/0.4 Ml Syringe 40 MG SQ DAILY for 14 Days, EA GIVE FOR 14 DAYS- END DATE 11-25-2021 Gabapentin (Gabapentin) 400 Mg Capsule 400 MG PO TID, CAP Hydrocodone/Acetaminophen (Hydrocodone-Acetamin 10-325 mg) 1 Each Tablet 1 EACH PO Q4H PRN for PAIN-MODERATE (5-7), #30 TAB (This prescription has been renewed) Insulin NPH Human Isophane (Novolin N) 100 Unit/1 Ml Vial 10 UNIT SQ BID, EA Insulin Regular, Human (Novolin R) 100 Unit/1 Ml Vial 10 UNIT SC TID, EA Ipratropium/Albuterol Sulfate (Iprat-Albut 0.5-3(2.5) mg/3 ml) 3 Ml Ampul.neb 3 ML IH BID, EACH Levothyroxine Sodium (Levothyroxine Sodium) 88 Mcg Tablet 88 MCG PO DAILY, TAB [place]-3 Fatty Acids/Fish Oil ([place] 3 1,000 mg Softgel) 1 Each Capsule 1 EACH PO DAILY, CAP Pantoprazole Sodium (Pantoprazole Sodium) 40 Mg Tablet.dr 40 MG PO DAILY, TAB Polyethylene Glycol 3350 (Miralax) 17 Gm Powd.pack 8.5 GM PO BID, EACH Prednisone (Prednisone) 5 Mg Tablet 5 MG PO DAILY, TAB Ropinirole HCl (Ropinirole HCl) 2 Mg Tablet 4 MG PO HS, TAB TAKES 2 (2MG) TABS Tizanidine HCl (Tizanidine HCl) 2 Mg Tablet 2 MG PO TID PRN for MUSCLE SPASMS, TAB Torsemide (Torsemide) 20 Mg Tablet 20 MG PO DAILY, TAB Katya S David Nov 18, 2021 11:53 KATYA JARQUIN DO Nov 18, 2021 11:54
[2021-11-18 12:00] VITALS: BP 124/57
--- NOTE | 2021-11-18 16:18 | Progress Note ---
CHRIS ARGUETA 11/18/21 1618: Progress Note Patient is a 71 year old female who was admitted to [facility] ICU on 11/13 with an admitting diagnosis of septic shock, elevated troponin, and COPD exacerbation. Patient underwent cardiac catheterization by Dr. Mclaughlin, Cardiology, which revealed small vessel disease and a type II non-ST elevated myocardial inf arction. Patient was also noted to have a UTI and was started on vancomycin and meropenem along with fluids and vasopressors. Patient was also initiated on hydrocoritsone due to prednisone dependency. On 11/14, Dr. Lozano, General Surgery, placed a central line for better access and more port site for medication delivery. On 11/15, Patient was noted to have a hemoglobin of 7 and a potassium of 2.7. Potassium replacement began and hemoglobin was monitored. Patient came off of vasopressors and was transferred to the Cardiac Step-down unit. On 11/16, Patient had a hemoglobin of 6.9 and was given a unit of RBCs. Insurance information was submitted for approval to [facility]. Patient was transferred to the fourth floor. In the evening, patient was a gitated and paranoid, but responded to antipsychotics. On 11/17, patient was feeling better in the morning and wanting to go to [facility]. Hemoglobin was a 7.8 after blood transfusion. Around 1600, patient had an episode of major delirium. Dr. Lindsey spoke with the patient's daughter, who came from work to see her mother, about code status. Initially daughter wanted to stay full code, but eventually decided to go DNR. On 11/18, Patient was deemed fit to return to [facility], and after insurance approval, patient was discharged to [facility]. KATYA JARQUIN DO 11/19/21 0601: Supervisory-Addendum Brief Verification & Attestation Participated in pt care: history, MDM, physical Personally performed: exam, history, MDM, supervision of care Care discussed with: Medical Student Procedures: n/a Results interpretation: Verified all documentation Verification and Attestation of Medical Student E/M Service A medical student performed and documented this service in my presence. I reviewed and verified all information documented by the medical student and made modifications to such information, when appropriate. I personally performed the physical exam and medical decision making. Katya Jarquin, Nov 19, 2021,06:01 CHRIS ARGUETA Nov 18, 2021 16:18 KATYA JARQUIN DO Nov 19, 2021 06:01
== END 2021-11-18 14:17 | DRG 871 ==
LOC: EDUNIT# 11:49 → ER FS 11:50 → ICU 13:57 → CSD 11-16 01:19 → 4TH 11-16 14:27
PROVIDERS: ADMIT Internal Medicine; ATTEND Internal Medicine
PROC: 4A023N7 Measurement of Cardiac Sampling and Pressure, Left Heart, Percutaneous Approach (ICD-10-PCS; principal; 2021-11-13)
PROC: B2111ZZ Fluoroscopy of Multiple Coronary Arteries using Low Osmolar Contrast (ICD-10-PCS; 2021-11-13)
DX: A41.9 Sepsis, unspecified organism (principal); I21.A1 Myocardial infarction type 2; I50.33 Acute on chronic diastolic (congestive) heart failure; R65.21 Severe sepsis with septic shock; J18.9 Pneumonia, unspecified organism; E87.2 Acidosis; N17.9 Acute kidney failure, unspecified; I13.0 Hypertensive heart and chronic kidney disease with heart failure and stage 1 through stage 4 chronic kidney disease, or unspecified chronic kidney disease; J44.0 Chronic obstructive pulmonary disease with (acute) lower respiratory infection; E27.40 Unspecified adrenocortical insufficiency; F17.210 Nicotine dependence, cigarettes, uncomplicated; Z66 Do not resuscitate; E03.9 Hypothyroidism, unspecified; E78.00 Pure hypercholesterolemia, unspecified; E11.51 Type 2 diabetes mellitus with diabetic peripheral angiopathy without gangrene; K21.9 Gastro-esophageal reflux disease without esophagitis; M19.90 Unspecified osteoarthritis, unspecified site; F41.9 Anxiety disorder, unspecified; N30.90 Cystitis, unspecified without hematuria; E87.6 Hypokalemia; E83.42 Hypomagnesemia; I95.9 Hypotension, unspecified; I25.10 Atherosclerotic heart disease of native coronary artery without angina pectoris; E78.2 Mixed hyperlipidemia; N18.30 Chronic kidney disease, stage 3 unspecified; E66.9 Obesity, unspecified; Z79.82 Long term (current) use of aspirin; Z79.4 Long term (current) use of insulin; Z79.899 Other long term (current) drug therapy; Z99.81 Dependence on supplemental oxygen; I25.2 Old myocardial infarction; Z95.5 Presence of coronary angioplasty implant and graft; Z68.35 Body mass index [BMI] 35.0-35.9, adult
CPT/HCPCS: 36415; 36600; 70450; 71045; 71046; 80048; 80053; 80061; 81000; 82805; 82947; 83605; 83735; 83880; 84100; 84132; 84484; 85007; 85025; 85027; 85610; 85730; 86141; 86850; 86900; 86901; 86920; 87040; 87081; 87088; 93005; 93041; 93306; 93458; 94640; 94760; 96374

== ENCOUNTER → 2021-11-27 | Outpatient (CLI) | payer MEDICARE ==
[~2021-11-27] MED LIST changes: +BUDE10.2 IH; +CALC600T80 PO; +ENOX40DI8 SQ; +INSU100V31 SC; +IPRA3AMP31 IH; +OMEG1CAP58 PO; +POLY17PO6 PO
[2021-11-27 11:22] LABS: BILIRUBIN,URINE NEGATIVE (NEGATIVE); CLARITY,URINE TURBID; COLOR,URINE YELLOW; GLUCOSE, URINE (UA) 2+ (NEGATIVE); KETONES,URINE NEGATIVE (NEGATIVE); NITRITE,URINE POSITIVE (NEGATIVE); PROTEIN,URINE NEGATIVE (NEGATIVE)
[2021-11-27 11:23] LABS: LEUKOCYTE ESTERASE ,URINE 3+ (NEGATIVE); WBC,URINE TNTC /HPF
== END ==
LOC: IHC 10:57
PROVIDERS: ATTEND Family Medicine
DX: Z48.815 Encounter for surgical aftercare following surgery on the digestive system (principal); J44.9 Chronic obstructive pulmonary disease, unspecified; E03.9 Hypothyroidism, unspecified; I10 Essential (primary) hypertension; E11.65 Type 2 diabetes mellitus with hyperglycemia; I25.10 Atherosclerotic heart disease of native coronary artery without angina pectoris
CPT/HCPCS: 81000; 87077; 87088; 87186

== ENCOUNTER → 2021-11-29 | Outpatient (CLI) | payer MEDICARE | PROVIDERS: ATTEND Family Medicine | DX: R19.7 Diarrhea, unspecified (principal) | CPT/HCPCS: 87015; 87045; 87046; 87899 ==

== ENCOUNTER → 2021-12-06 | Outpatient (CLI) | payer MEDICARE ==
[~2021-12-06] MED LIST changes: +MAGN200T8 PO; +POTA-179 PO; +SULF1TAB38 PO
[2021-12-06 14:29] LABS: HEMOGLOBIN 7.3 g/dL (11.5-16.0); MEAN CORPUSCULAR HEMOGLOBIN 26 pg (25-34); WHITE BLOOD COUNT 12.1 10^3/uL (4.3-11.0)
[2021-12-06 14:30] LABS: BASOPHILS # (AUTO) 0.1 10^3/uL (0.0-0.1); BASOPHILS % (AUTO) 0 % (0-10); EOSINOPHILS % (AUTO) 0 % (0-10); HEMATOCRIT 22 % (35-52); LYMPHOCYTES % (AUTO) 16 % (12-44); MEAN CORPUSCULAR HGB CONC 33 g/dL (32-36); MEAN CORPUSCULAR VOLUME 81 fL (80-99); MEAN PLATELET VOLUME 9.9 fL (9.0-12.2); MONOCYTES # (AUTO) 0.7 X 10^3 (0.0-1.0); MONOCYTES % (AUTO) 6 % (0-12); NEUTROPHILS # (AUTO) 8.8 X 10^3 (1.8-7.8); NEUTROPHILS % (AUTO) 73 % (42-75); PLATELET COUNT 295 10^3/uL (130-400)
[2021-12-06 15:28] LABS: ATYPICAL LYMPHOCYTES 2 %; BAND NEUTROPHILS 2 %; LYMPHOCYTES % (MANUAL) 19 %; METAMYELOCYTES % 1 %; MONOCYTES % (MANUAL) 4 %; MYELOCYTES % 1 %; NEUTROPHILS % (MANUAL) 69 %; NUCLEATED RED BLOOD CELLS 1; REACTIVE LYMPHOCYTES 2 %
[2021-12-06 15:29] LABS: ANISOCYTOSIS MARKED; HYPOCHROMASIA MODERATE; PLATELET ESTIMATE NORMAL; POIKILOCYTOSIS MODERATE; POLYCHROMASIA MODERATE; RBC MORPH ABNORMAL
[2021-12-06 15:30] LABS: SCHISTOCYTES SLIGHT; TARGET CELLS SLIGHT; TEAR DROP CELLS SLIGHT
[2021-12-06 16:25] LABS: CREATININE SERUM 1.56 MG/DL (0.60-1.30)
[2021-12-06 16:45] LABS: BILIRUBIN,TOTAL 0.5 MG/DL (0.1-1.0)
[2021-12-06 16:46] LABS: ALBUMIN 2.3 GM/DL (3.2-4.5); TOTAL PROTEIN 6.2 GM/DL (6.4-8.2)
[2021-12-06 16:49] LABS: CALCIUM 5.8 MG/DL (8.5-10.1)
== END ==
LOC: LAB FS 13:17
PROVIDERS: ATTEND Family Medicine
DX: E11.51 Type 2 diabetes mellitus with diabetic peripheral angiopathy without gangrene (principal); A41.9 Sepsis, unspecified organism; J96.01 Acute respiratory failure with hypoxia; I10 Essential (primary) hypertension
CPT/HCPCS: 80053; 83036; 85007; 85027

== ENCOUNTER 2021-12-07 13:15 | Emergency (ER) | payer MEDICARE ==
[~2021-12-07 13:15] MED LIST changes: -MAGN200T8 PO; -POTA-179 PO; -SULF1TAB38 PO
--- OUTSIDE RECORDS SUMMARY | 2021-12-07 13:19 | XMS REPORT | Clinical Summary ---
Author Author [facility] Organization [facility] Address Unknown Phone Unavailable Care Team Providers Care Signal Tower Director Name Role Phone Jayjay Rendon MD PCP [...] 20 MG Take 20 mg by 0 12/0 tablet mouth every 0 12 (twelve) hours as needed. Active clopidogreL (PLAVIX) 75 TAKE ONE (1) 30 tablet 2 1 mg tablet TABLET (75 MG 1 TOTAL) BY MOUTH DAILY. Active Problems Problem Noted Date NSTEMI (non-ST elevated myocardial infarction) 06/21 Last Assessment & Plan: Formatting of this note might be differ ent from the original. Echo with normal EF and no R WMA LHC with PCI to RCA on 06/22/21 Continue DAPT, high intensity statin, b eta-keerthi Jardiance cost check pending Tobacco abuse 06/20/2021 Last Assessment & Plan: Formatting of this note might be differ ent from the original. 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/antiplatelets; Tobacco abuse 09/23/2021 [...] Type Specialty Bill Zamudio, ALISHA [address] [facility] [address] [place] [address] 03/29/2022 Video Visit Cardiology Health Maintenance Due Date Last Done Comments Diabetes Mellitus 1950 Ophthalmology Exam Diabetes Mellitus Urine 1950 Microalbumin Hepatitis C Screen 1950 Medicare Annual Wellness 1950 Spirometry # 1950 Td/Tdap# 1950 Tobacco Cessation 1950 Counseling # Diabetes Mellitus Foot 1961 Exam Colorectal Screening via 2001 Colonoscopy Zoster Vaccine# (1 of 2) 2001 Advance Care Plan 01/29/2016 Conversation Needed # Depression Screening 01/29/2016 PHQ-9 # Osteoporosis Screening 01/29/2016 Advance Directive Needed 06/23/2021 Influenza Vaccine (#1) 2021 08/10/2020, 10/02/2019, 09/18/2019, [...] ot Implanted Type Area Manufactur er 11/26/2021 [id number] / [id number] / [id number] [employer] 3.25 Mm X 15 Mm De Stent Stent ABB ALEXIS - [id number] VASCULAR Implanted: Qty: 1 on 06/22/2021 by Larry Lord MD at [facility] Results Not on filefrom Last 3 Months Insurance Type Payer Benefit Subscriber ID Effective Phone Address Plan / Dates Group MEDICARE REPLACEMENT PLAN [employer] [id number] 2019-P [address] MEDICARE resent [id number] [employer], [place] [address] [id number] [facility] (Home) [place], [place] [address] Raul Quiroz Personal/F Self 1950 [address] (Home) [place] [address] Advance Directives For more information, please contact: [phone] Patient Lead Operator Explanation Type Date Recorded Health Care Directive Health Care 06/22/2021 7:29 PM Directive Date Inactivated Comments Code Status Date Activated Full Code 06/22/2021 10:04 AM 06/22/2021 10:04 AM Full Code 06/20/2021 6:49 PM Care Teams Start Date End Date Signal Tower Director Relationship Specialty 06/20/21 Jayjay Rendon MD PCP - [address] [id number]
--- NOTE | 2021-12-07 13:22 | ED General ---
History of Present Illness Date Seen by Provider: Dec 07, 2021 Time Seen by Provider: 13:19 Initial Comments 71-year-old female presents with generalized malaise. Patient was sent in with concern for low hemoglobin by her home health care nurse. Patient states that she is "felt kind of fluey for the bout the last 3 days. But she denies any cough, shortness of breath. Some mild subjective fever. No complaints of any urinary symptoms. Allergies and Home Medications Allergies Coded Allergies: Penicillins (Unverified Adverse Reaction, Unknown, 01/16/21) cephalexin (Unverified Adverse Reaction, Unknown, 01/16/21) ciprofloxacin (Unverified Adverse Reaction, Unknown, 01/16/21) erythromycin base (Unverified Adverse Reaction, Unknown, 01/16/21) Patient Home Medication List Home Medication List Reviewed: Yes Alprazolam (Alprazolam) 0.5 Mg Tablet, 0.5 MG PO Q8H PRN for ANXIETY Prescribed by: DAVEY JARQUIN on 11/18/21 1153 Amitriptyline HCl (Amitriptyline HCl) 25 Mg Tablet, 25 MG PO HS, (Reported) Entered as Reported by: FARHEEN PASTOR on 11/15/21 1224 Aspirin (Aspirin EC) 81 Mg Tablet.dr, 81 MG PO DAILY, (Reported) Entered as Reported by: FARHEEN PASTOR on 11/15/21 1224 Atorvastatin Calcium (Atorvastatin Calcium) 80 Mg Tablet, 80 MG PO HS, (Reported) Entered as Reported by: FARHEEN PASTOR on 11/15/21 1224 Budesonide/Formoterol Fumarate (Symbicort 160-4.5 Mcg Inhaler) 10.2 Gm Hfa.aer.ad, 2 PUFF IH BID, (Reported) Entered as Reported by: FARHEEN PASTOR on 11/15/21 1224 Calcium Carbonate (Calcium Carbonate) 600 Mg Tablet, 600 MG PO DAILY, (Reported) Entered as Reported by: FARHEEN PASTOR on 11/15/21 1224 Clopidogrel Bisulfate (Clopidogrel) 75 Mg Tablet, 75 MG PO DAILY, (Reported) Entered as Reported by: FARHEEN PASTOR on 11/15/21 1224 Dicyclomine HCl (Dicyclomine HCl) 10 Mg Capsule, 10 MG PO ACHS, (Reported) Entered as Reported by: FARHEEN PASTOR on 11/15/21 1224 Empagliflozin (Jardiance) 10 Mg Tablet, 10 MG PO DAILY, (Reported) Entered as Reported by: FARHEEN PASTOR on 11/15/21 1224 Enoxaparin Sodium (Enoxaparin Sodium) 40 Mg/0.4 Ml Syringe, 40 MG SQ DAILY, (Reported) Entered as Reported by: FARHEEN PASTOR on 11/15/21 1224 Gabapentin (Gabapentin) 400 Mg Capsule, 400 MG PO TID, (Reported) Entered as Reported by: FARHEEN PASTOR on 11/15/21 1224 Hydrocodone/Acetaminophen (Hydrocodone-Acetamin 10-325 mg) 1 Each Tablet, 1 EACH PO Q4H PRN for PAIN-MODERATE (5-7) Prescribed by: DAVEY JARQUIN on 11/18/21 1153 Insulin NPH Human Isophane (Novolin N) 100 Unit/1 Ml Vial, 10 UNIT SQ BID, (Reported) Entered as Reported by: FARHEEN PASTOR on 11/15/21 1224 Insulin Regular, Human (Novolin R) 100 Unit/1 Ml Vial, 10 UNIT SC TID, (Reported) Entered as Reported by: FARHEEN PASTOR on 11/15/21 1224 Ipratropium/Albuterol Sulfate (Iprat-Albut 0.5-3(2.5) mg/3 ml) 3 Ml Ampul.neb, 3 ML IH BID, (Reported) Entered as Reported by: FARHEEN PASTOR on 11/15/21 1224 Levothyroxine Sodium (Levothyroxine Sodium) 88 Mcg Tablet, 88 MCG PO DAILY, (Reported) Entered as Reported by: FARHEEN PASTOR on 11/15/21 1224 Magnesium Oxide (Mag-Oxide) 200 Mg Tablet, 400 MG PO DAILY Prescribed by: MONICA LOVE on 12/07/21 180 [place]-3 Fatty Acids/Fish Oil ([place] 3 1,000 mg Softgel) 1 Each Capsule, 1 EACH PO DAILY, (Reported) Entered as Reported by: FARHEEN PASTOR on 11/15/21 1224 Pantoprazole Sodium (Pantoprazole Sodium) 40 Mg Tablet.dr, 40 MG PO DAILY, (Reported) Entered as Reported by: FARHEEN PASTOR on 11/15/21 1224 Polyethylene Glycol 3350 (Miralax) 17 Gm Powd.pack, 8.5 GM PO BID, (Reported) Entered as Reported by: FARHEEN PASTOR on 11/15/21 1224 Potassium Chloride (Potassium Chloride) 20 Meq Tab.er.prt, 20 MEQ PO BID Prescribed by: MONICA LOVE on 12/07/21 1802 Prednisone (Prednisone) 5 Mg Tablet, 5 MG PO DAILY, (Reported) Entered as Reported by: FARHEEN PASTOR on 11/15/21 1224 Ropinirole HCl (Ropinirole HCl) 2 Mg Tablet, 4 MG PO HS, (Reported) Entered as Reported by: FARHEEN PASTOR on 11/15/21 1224 Sulfamethoxazole/Trimethoprim (Bactrim Ds Tablet) 1 Each Tablet, 1 EACH PO BID Prescribed by: MONICA LOVE on 12/07/21 180 Tizanidine HCl (Tizanidine HCl) 2 Mg Tablet, 2 MG PO TID PRN for MUSCLE SPASMS, (Reported) Entered as Reported by: FARHEEN PASTOR on 11/15/21 1224 Torsemide (Torsemide) 20 Mg Tablet, 20 MG PO DAILY, (Reported) Entered as Reported by: FARHEEN PASTOR on 11/15/21 1224 Review of Systems Review of Systems Constitutional: chills, fever, malaise Respiratory: No cough, No short of breath Cardiovascular: No chest pain, No palpitations Gastrointestinal: nausea Musculoskeletal: other (Generalized body) Skin: no symptoms reported Psychiatric/Neurological: No Symptoms Reported Hematologic/Lymphatic: No Symptoms Reported Past Jbhvdgd-[id number] Hx Immunizations Up To Date Tetanus Booster (TDap): Unknown First/Initial COVID19 Vaccinat: unknown but did recieve Second COVID19 Vaccination Lon: unknown but did recieve Third COVID19 Vaccination Date: did recieve booster Seasonal Allergies Seasonal Allergies: No Past Medical History Surgery/Hospitalization HX: HTN, DM, COPD with O2 dependency at night, frequent falls, Hypothyroidism. Bowel resection discharged 10/31/21 Surgeries: Yes (Bilat knee arthroscopy, L TKR, Bladder suspension, Pituitary tumor exc) Abdominal, Bladder Surgery, Gallbladder, Joint Replacement, Orthopedic Respiratory: Yes (Tobaccoism) COPD Cardiac: Yes Heart Attack, High Cholesterol, Hypertension, Peripheral Vascular Neurological: No Genitourinary: Yes (Bladder suspension for incont) Bladder Infection Gastrointestinal: Yes (EGD/Colonoscopy; 4 ulcers) Gastroesophageal Reflux Musculoskeletal: Yes Arthritis Endocrine: Yes Hypothyroidsim, Diabetes, Non-Insulin dep HEENT: No Cancer: No Psychosocial: Yes Anxiety Integumentary: No (thin skin with numerous skin tears/ecchymosis) Blood Disorders: No Family Medical History No Pertinent Family Hx Physical Exam Vital Signs Vital Signs - First Documented 12/07/21 13:32 Temp 36.2 Pulse 102 Resp 20 B/P (MAP) 125/72 (89) Pulse Ox 97 O2 Delivery Room Air Capillary Refill : Height, Weight, BMI Height: '" Weight: lbs. oz. kg; 36.80 BMI Method: General Appearance: No Apparent Distress, WD/WN HEENT: PERRL/EOMI Respiratory: Lungs Clear, Normal Breath Sounds Cardiovascular: Regular Rate, Rhythm, No Edema Gastrointestinal: Non Tender, Soft Extremity: Normal Capillary Refill, Normal Inspection Neurologic/Psychiatric: Alert, Oriented x3 Skin: Normal Color, Warm/Dry Procedures/Interventions Date of ETT Placement: Oct 21, 2021 Suture Size: 4-0 Progress/Results/Core Measures Suspected Sepsis SIRS Temperature: Pulse: Respiratory Rate: Laboratory Tests 12/07/21 13:00: White Blood Count 11.7H Blood Pressure / Mean: Laboratory Tests 12/07/21 13:00: Creatinine 1.58H, Platelet Count 327, Total Bilirubin 0.4 Results/Orders Lab Results Laboratory Tests Test 12/07/21 12:29 12/07/21 13:00 12/07/21 13:52 12/07/21 14:45 Range/Units Magnesium Level 0.6 *L 1.6-2.4 MG/DL White Blood Count 11.7 H 4.3-11.0 10^3/uL Red Blood Count 2.96 L 3.80-5.11 10^6/uL Hemoglobin 7.9 L 11.5-16.0 g/dL Hematocrit 25 L 35-52 % Mean Corpuscular Volume 84 80-99 fL Mean Corpuscular Hemoglobin 27 25-34 pg Mean Corpuscular Hemoglobin Concent 32 32-36 g/dL Red Cell Distribution Width 18.6 H 10.0-14.5 % Platelet Count 327 130-400 10^3/uL Mean Platelet Volume 9.7 9.0-12.2 fL Immature Granulocyte % (Auto) 2 % Neutrophils (%) (Auto) 58 42-75 % Lymphocytes (%) (Auto) 30 12-44 % Monocytes (%) (Auto) 7 0-12 % Eosinophils (%) (Auto) 2 0-10 % Basophils (%) (Auto) 1 0-10 % Neutrophils # (Auto) 6.8 1.8-7.8 X 10^3 Lymphocytes # (Auto) 3.6 1.0-4.0 X 10^3 Monocytes # (Auto) 0.8 0.0-1.0 X 10^3 Eosinophils # (Auto) 0.2 0.0-0.3 10^3/uL Basophils # (Auto) 0.1 0.0-0.1 10^3/uL Immature Granulocyte # (Auto) 0.3 H 0.0-0.1 10^3/uL Sodium Level 130 L 135-145 MMOL/L Potassium Level 2.8 L 3.6-5.0 MMOL/L Chloride Level 87 L 98-107 MMOL/L Carbon Dioxide Level 22 21-32 MMOL/L Anion Gap 21 H 5-14 MMOL/L Blood Urea Nitrogen 23 H 7-18 MG/DL Creatinine 1.58 H 0.60-1.30 MG/DL Estimat Glomerular Filtration Rate 35 BUN/Creatinine Ratio 15 Glucose Level 191 H 70-105 MG/DL Calcium Level 5.9 *L 8.5-10.1 MG/DL Corrected Calcium 7.0 L 8.5-10.1 MG/DL Total Bilirubin 0.4 0.1-1.0 MG/DL Aspartate Amino Transf (AST/SGOT) 29 5-34 U/L Alanine Aminotransferase (ALT/SGPT) 17 0-55 U/L Alkaline Phosphatase 178 H 40-136 U/L C-Reactive Protein 20.36 H <0.50 MG/DL Total Protein 6.9 6.4-8.2 GM/DL Albumin 2.6 L 3.2-4.5 GM/DL Influenza Type A Antigen NEGATIVE NEGATIVE Influenza Type B Antigen NEGATIVE NEGATIVE Urine Color YELLOW Urine Clarity CLOUDY Urine pH 6.0 5-9 Urine Specific [place] 1.010 L 1.016-1.022 Urine Protein NEGATIVE NEGATIVE Urine Glucose (UA) 2+ H NEGATIVE Urine Ketones NEGATIVE NEGATIVE Urine Nitrite NEGATIVE NEGATIVE Urine Bilirubin NEGATIVE NEGATIVE Urine Urobilinogen 0.2 < = 1.0 MG/DL Urine Leukocyte Esterase 2+ H NEGATIVE Urine RBC (Auto) 1+ H NEGATIVE Urine RBC 2-5 H /HPF Urine WBC 50-100 H /HPF Urine Crystals NONE /LPF Urine Bacteria TRACE /HPF Urine Casts NONE /LPF Urine Mucus NEGATIVE /LPF Urine Culture Indicated YES My Orders Orders - LOVE,MONICA L DO Cbc With Automated Diff (12/07/21 13:31) Comprehensive Metabolic Panel (12/07/21 13:31) Ua Culture If Indicated (12/07/21 13:31) Crp Fs (12/07/21 13:31) Influenza A & B Antigens (12/07/21 13:31) Potassium Cl 10meq/50ml Ivpb (Kcl 10 Meq (12/07/21 15:00) Potassium Chloride (Tablet) (K Dur Table (12/07/21 15:00) Magnesium (12/07/21 14:58) Ns Iv 1000 Ml (Sodium Chloride 0.9%) (12/07/21 15:01) Ns Iv 1000 Ml (Sodium Chloride 0.9%) (12/07/21 15:30) Magnesium 1 Gm/100 Ml Ivpb (Magnesium [place] (12/07/21 15:45) Ondansetron Injection (Zofran Injectio (12/07/21 15:45) Famotidine Injection (Pepcid Injection) (12/07/21 15:40) Urine Culture (12/07/21 14:45) Sulfamethoxazole/Trimet Ds Tab (Bactrim (12/07/21 16:45) Medications Given in ED Current Medications Medications Dose Ordered Sig/Shorty Route Start Time Stop Time Status Last Admin Dose Admin Ondansetron HCl 4 mg ONCE ONCE IVP 12/07/21 15:45 12/07/21 15:46 DC 12/07/21 15:59 4 MG Potassium Chloride 20 meq ONCE ONCE PO 12/07/21 15:00 12/07/21 15:01 DC 12/07/21 15:09 20 MEQ Potassium Chloride 50 ml @ 50 mls/hr ONCE ONCE IV 12/07/21 15:00 12/07/21 15:59 DC 12/07/21 15:09 50 MLS/HR Trimethoprim/ Sulfamethoxazole 1 ea ONCE ONCE PO 12/07/21 16:45 12/07/21 16:46 DC 12/07/21 16:51 1 EA Vital Signs/I&O 12/07/21 12/07/21 13:32 18:16 Temp 36.2 36.2 Pulse 102 102 Resp 20 20 B/P (MAP) 125/72 (89) 95/45 Pulse Ox 97 97 O2 Delivery Room Air Room Air Capillary Refill : Progress Note : Progress Note Patient with low mag, potassium and calcium along with a urinary tract infection. Patient felt better after getting some replacement of mag and potassium. Patient was on home calcium and had quit taking it. I prescribed her both potassium and mag. She also has a urinary tract infection which she was prescribed Bactrim for. Recommend she follow-up with her primary care provider in a couple days for recheck of her symptoms and recheck of her labs. Patient stable and discharged home Departure Impression Primary Impression: Hypokalemia Additional Impressions: Hypocalcemia Chronic anemia Hypomagnesemia Acute cyclitis Disposition: 01 HOME, SELF-CARE Condition: Stable Departure-Patient Inst. Referrals: MAYCOL CLAIRE MD (PCP/Family) Primary Care Physician Patient Instructions: Hypocalcemia, Hypokalemia, Low Magnesium Level (DC), Urinary Tract Infection, Adult (DC) Add. Discharge Instructions: Follow-up with your primary care provider in 2 days for recheck of your labs Please restart taking your calcium pills Scripts Sulfamethoxazole/Trimethoprim (Bactrim Ds Tablet) 1 Each Tablet 1 EACH PO BID for 7 Days, #14 TAB . Prov: LOVE,MONICA L DO 12/07/21 Magnesium Oxide (Mag-Oxide) 200 Mg Tablet 400 MG PO DAILY for 7 Days, #14 TAB . Prov: LOVE,MONICA L DO 12/07/21 Potassium Chloride (Potassium Chloride) 20 Meq Tab.er.prt 20 MEQ PO BID, #30 EACH . Prov: LOVE,MONICA L DO 12/07/21 LOVE,MONICA L DO Dec 07, 2021 13:22
[2021-12-07 13:45] LABS: HEMATOCRIT 25 % (35-52); HEMOGLOBIN 7.9 g/dL (11.5-16.0); MEAN CORPUSCULAR HEMOGLOBIN 27 pg (25-34); MEAN CORPUSCULAR HGB CONC 32 g/dL (32-36); MEAN CORPUSCULAR VOLUME 84 fL (80-99); MEAN PLATELET VOLUME 9.7 fL (9.0-12.2); PLATELET COUNT 327 10^3/uL (130-400); WHITE BLOOD COUNT 11.7 10^3/uL (4.3-11.0)
[2021-12-07 13:46] LABS: BASOPHILS % (AUTO) 1 % (0-10); EOSINOPHILS % (AUTO) 2 % (0-10); LYMPHOCYTES % (AUTO) 30 % (12-44); MONOCYTES % (AUTO) 7 % (0-12); NEUTROPHILS % (AUTO) 58 % (42-75)
[2021-12-07 13:47] LABS: BASOPHILS # (AUTO) 0.1 10^3/uL (0.0-0.1); EOSINOPHILS # (AUTO) 0.2 10^3/uL (0.0-0.3); LYMPHOCYTES # (AUTO) 3.6 X 10^3 (1.0-4.0); MONOCYTES # (AUTO) 0.8 X 10^3 (0.0-1.0); NEUTROPHILS # (AUTO) 6.8 X 10^3 (1.8-7.8)
[2021-12-07 14:51] LABS: CREATININE SERUM 1.58 MG/DL (0.60-1.30); POTASSIUM 2.8 MMOL/L (3.6-5.0)
[2021-12-07 14:52] LABS: CALCIUM 5.9 MG/DL (8.5-10.1)
[2021-12-07 14:53] LABS: ALBUMIN 2.6 GM/DL (3.2-4.5); BILIRUBIN,TOTAL 0.4 MG/DL (0.1-1.0); TOTAL PROTEIN 6.9 GM/DL (6.4-8.2)
[2021-12-07] MEDS ORDERED: POTASSIUM CL 10MEQ/50ML IVPB 50 ML IV ONE (15:00)
[2021-12-07] MEDS ORDERED: KCL 20 MEQ TAB (K-DUR) PO ONE (15:00)
[2021-12-07] MEDS ORDERED: NS IV 1000 ML 1,000 ML ONE (15:01)
[2021-12-07] MEDS ORDERED: POTA-179 PO ×2 (15:11→18:02)
[2021-12-07 15:13] LABS: BILIRUBIN,URINE NEGATIVE (NEGATIVE); CLARITY,URINE CLOUDY; COLOR,URINE YELLOW; GLUCOSE, URINE (UA) 2+ (NEGATIVE); KETONES,URINE NEGATIVE (NEGATIVE); LEUKOCYTE ESTERASE ,URINE 2+ (NEGATIVE); NITRITE,URINE NEGATIVE (NEGATIVE); PROTEIN,URINE NEGATIVE (NEGATIVE)
[2021-12-07] MEDS ORDERED: NS IV 1000 ML 1,000 ML IV SCH (15:30)
[2021-12-07] MEDS ORDERED: FAMOTIDINE 20MG/2ML IV (PEPCID) IV STA (15:40)
[2021-12-07] MEDS ORDERED: ONDANSETRON 4 MG/2 ML (SDV) Z0FRAN IVP ONE (15:45)
[2021-12-07 15:50] LABS: WBC,URINE 50-100 /HPF
[2021-12-07 15:51] LABS: BACTERIA,URINE TRACE /HPF
[2021-12-07] MEDS: MAGNESIUM 1 GM/100 ML IVPB 100 ML IV SCH ×2 (16:00→17:00)
[2021-12-07] MEDS ORDERED: MAGN200T8 PO ×2 (16:11→18:02)
[2021-12-07] MEDS ORDERED: SULF1TAB38 PO ×2 (16:36→18:02)
[2021-12-07] MEDS ORDERED: TRIM/SULFAMETH 160/800 (SEPTRA DS) TAB PO ONE (16:45)
[2021-12-07 18:16] VITALS: BP 95/45
== END 2021-12-07 18:15 | disposition home or self-care (01) ==
LOC: EDUNIT# 13:15 → ER FS 13:16
DX: E87.6 Hypokalemia (principal); E83.51 Hypocalcemia; D64.9 Anemia, unspecified; E83.42 Hypomagnesemia; N30.00 Acute cystitis without hematuria; J44.9 Chronic obstructive pulmonary disease, unspecified; I10 Essential (primary) hypertension; I25.2 Old myocardial infarction; E78.00 Pure hypercholesterolemia, unspecified; K21.9 Gastro-esophageal reflux disease without esophagitis; E03.9 Hypothyroidism, unspecified; E11.9 Type 2 diabetes mellitus without complications; F41.9 Anxiety disorder, unspecified; Z79.82 Long term (current) use of aspirin; Z79.01 Long term (current) use of anticoagulants; Z79.899 Other long term (current) drug therapy; Z79.890 Hormone replacement therapy
CPT/HCPCS: 36415; 80053; 81000; 83735; 85025; 86141; 87077; 87088; 87186; 87804

== ENCOUNTER 2022-01-06 13:45 | Inpatient (IN) | payer MEDICARE ==
[2022-01-06] VITALS (11 sets, daily range): BP systolic 101–128; BP diastolic 38–64
[~2022-01-06] VITALS: Ht 175 cm; Wt 95.0 kg
[~2022-01-06 13:45] MED LIST changes: -APIX5TAB PO; -BUME1TAB8 PO; -FERR-74 PO; -FISH1CAP6 PO; -INSU100V SQ; -INSU100V6 SQ; -MAGN400T39 PO; -OXYC5TAB PO; -POTA-51 PO; -PRD10T PO
[2022-01-06] MEDS ORDERED: PANTOPRAZOLE 40 MG (PROTONIX) VIAL IV ONE (14:00)
--- NOTE | 2022-01-06 14:16 | ED General ---
General Chief Complaint: General Problems/Pain Stated Complaint: WEAKNESS Source of Information: Patient Exam Limitations: No Limitations History of Present Illness Date Seen by Provider: Jan 06, 2022 Time Seen by Provider: 14:11 Initial Comments To ER by [facility] from [facility] with reports of general weakness. She had outpatient labs drawn today showing hemoglobin of 5.6, hematocrit of 18, platelet count of 112 and a white count of 12.1. She is on aspirin Plavix and Eliquis (Eliquis for right leg DVT reportedly but I do not see that that has been filled from the med list available to me). She denies any abdominal pain. No fevers or chills. She has a history of stage III CKD,HFpEF, PAD, HLD, obesity, COPD, small vessel CAD, DVT right lower extremity, GERD, hypothyroidism, NIDDM, A-fib. She has a wound on the right heel. She is DO NOT RESUSCITATE status. Timing/Duration: 1 Week Severity: Moderate Associated Systoms: No Chest Pain, No Cough; Weakness Allergies and Home Medications Allergies Coded Allergies: Penicillins (Unverified Adverse Reaction, Unknown, 01/16/21) cephalexin (Unverified Adverse Reaction, Unknown, 01/16/21) ciprofloxacin (Unverified Adverse Reaction, Unknown, 01/16/21) erythromycin base (Unverified Adverse Reaction, Unknown, 01/16/21) Patient Home Medication List Home Medication List Reviewed: Yes Alprazolam (Alprazolam) 0.5 Mg Tablet, 0.5 MG PO Q8H PRN for ANXIETY Prescribed by: DAVEY JARQUIN on 11/18/21 1153 Amitriptyline HCl (Amitriptyline HCl) 25 Mg Tablet, 25 MG PO HS, (Reported) Entered as Reported by: FARHEEN PASTOR on 11/15/21 1224 Aspirin (Aspirin EC) 81 Mg Tablet.dr, 81 MG PO DAILY, (Reported) Entered as Reported by: FARHEEN PASTOR on 11/15/21 1224 Atorvastatin Calcium (Atorvastatin Calcium) 80 Mg Tablet, 80 MG PO HS, (Reported) Entered as Reported by: FARHEEN PASTOR on 11/15/21 1224 Budesonide/Formoterol Fumarate (Symbicort 160-4.5 Mcg Inhaler) 10.2 Gm Hfa.aer.ad, 2 PUFF IH BID, (Reported) Entered as Reported by: FARHEEN PASTOR on 11/15/21 1224 Calcium Carbonate (Calcium Carbonate) 600 Mg Tablet, 600 MG PO DAILY, (Reported) Entered as Reported by: FARHEEN PASTOR on 11/15/21 1224 Clopidogrel Bisulfate (Clopidogrel) 75 Mg Tablet, 75 MG PO DAILY, (Reported) Entered as Reported by: FARHEEN PASTOR on 11/15/21 1224 Dicyclomine HCl (Dicyclomine HCl) 10 Mg Capsule, 10 MG PO ACHS, (Reported) Entered as Reported by: FARHEEN PASTOR on 11/15/21 1224 Empagliflozin (Jardiance) 10 Mg Tablet, 10 MG PO DAILY, (Reported) Entered as Reported by: FARHEEN PASTOR on 11/15/21 1224 Enoxaparin Sodium (Enoxaparin Sodium) 40 Mg/0.4 Ml Syringe, 40 MG SQ DAILY, (Reported) Entered as Reported by: FARHEEN PASTOR on 11/15/21 1224 Gabapentin (Gabapentin) 400 Mg Capsule, 400 MG PO TID, (Reported) Entered as Reported by: FARHEEN PASTOR on 11/15/21 1224 Hydrocodone/Acetaminophen (Hydrocodone-Acetamin 10-325 mg) 1 Each Tablet, 1 EACH PO Q4H PRN for PAIN-MODERATE (5-7) Prescribed by: DAVEY JARQUIN on 11/18/21 1153 Insulin NPH Human Isophane (Novolin N) 100 Unit/1 Ml Vial, 10 UNIT SQ BID, (Reported) Entered as Reported by: FARHEEN PASTOR on 11/15/21 1224 Insulin Regular, Human (Novolin R) 100 Unit/1 Ml Vial, 10 UNIT SC TID, (Reported) Entered as Reported by: FARHEEN PASTOR on 11/15/21 1224 Ipratropium/Albuterol Sulfate (Iprat-Albut 0.5-3(2.5) mg/3 ml) 3 Ml Ampul.neb, 3 ML IH BID, (Reported) Entered as Reported by: FARHEEN PASTOR on 11/15/21 1224 Levothyroxine Sodium (Levothyroxine Sodium) 88 Mcg Tablet, 88 MCG PO DAILY, (Reported) Entered as Reported by: FARHEEN PASTOR on 11/15/21 1224 Magnesium Oxide (Mag-Oxide) 200 Mg Tablet, 400 MG PO DAILY Prescribed by: MONICA LOVE on 12/07/21 180 [place]-3 Fatty Acids/Fish Oil ([place] 3 1,000 mg Softgel) 1 Each Capsule, 1 EACH PO DAILY, (Reported) Entered as Reported by: FARHEEN PASTOR on 11/15/21 1224 Pantoprazole Sodium (Pantoprazole Sodium) 40 Mg Tablet.dr, 40 MG PO DAILY, (Reported) Entered as Reported by: FARHEEN PASTOR on 11/15/21 1224 Polyethylene Glycol 3350 (Miralax) 17 Gm Powd.pack, 8.5 GM PO BID, (Reported) Entered as Reported by: FARHEEN PASTOR on 11/15/21 122 Potassium Chloride (Potassium Chloride) 20 Meq Tab.er.prt, 20 MEQ PO BID Prescribed by: MONICA LOVE on 12/07/21 180 Prednisone (Prednisone) 5 Mg Tablet, 5 MG PO DAILY, (Reported) Entered as Reported by: FARHEEN PASTOR on 11/15/21 122 Ropinirole HCl (Ropinirole HCl) 2 Mg Tablet, 4 MG PO HS, (Reported) Entered as Reported by: FARHEEN PASTOR on 11/15/21 122 Sulfamethoxazole/Trimethoprim (Bactrim Ds Tablet) 1 Each Tablet, 1 EACH PO BID Prescribed by: MONICA LOVE on 12/07/211801 Tizanidine HCl (Tizanidine HCl) 2 Mg Tablet, 2 MG PO TID PRN for MUSCLE SPASMS, (Reported) Entered as Reported by: FARHEEN PASTOR on 11/15/21 122 Torsemide (Torsemide) 20 Mg Tablet, 20 MG PO DAILY, (Reported) Entered as Reported by: FARHEEN PASTOR on 11/15/21 122 Review of Systems Review of Systems Constitutional: see HPI, malaise, weakness EENTM: see HPI Respiratory: no symptoms reported Cardiovascular: no symptoms reported Genitourinary: no symptoms reported Musculoskeletal: no symptoms reported Skin: no symptoms reported Psychiatric/Neurological: No Symptoms Reported Hematologic/Lymphatic: No Symptoms Reported Immunological/Allergic: no symptoms reported Past Fflbnot-Addrmr-Tgqlyo Hx Patient Social History Tobacco Use?: No Smoking Status: Former Smoker Substance use?: No Alcohol Use?: No Pt feels they are or have been: No Immunizations Up To Date Tetanus Booster (TDap): Unknown Influenza Vaccine Up-to-Date: Yes; Up-to-Date First/Initial COVID19 Vaccinat: 2020 Second COVID19 Vaccination Lon: 2020 Third COVID19 Vaccination Date: did recieve booster COVID19 Vaccine Candy Vendor: MODERNA Seasonal Allergies Seasonal Allergies: No Past Medical History Surgery/Hospitalization HX: HTN, DM, COPD with O2 dependency at night, frequent falls, Hypothyroidism. Bowel resection discharged 10/31/21 Surgeries: Yes (Bilat knee arthroscopy, L TKR, Bladder suspension, Pituitary tumor exc) Abdominal, Bladder Surgery, Gallbladder, Joint Replacement, Orthopedic Respiratory: Yes (Tobaccoism) COPD Cardiac: Yes Heart Attack, High Cholesterol, Hypertension, Peripheral Vascular Neurological: No Genitourinary: Yes (Bladder suspension for incont) Bladder Infection Gastrointestinal: Yes (EGD/Colonoscopy; 4 ulcers) Gastroesophageal Reflux Musculoskeletal: Yes Arthritis Endocrine: Yes Hypothyroidsim, Diabetes, Non-Insulin dep HEENT: No Cancer: No Psychosocial: Yes Anxiety Integumentary: No (thin skin with numerous skin tears/ecchymosis) Blood Disorders: No Family Medical History No Pertinent Family Hx Physical Exam Vital Signs Vital Signs - First Documented 01/06/22 13:45 Temp 36.7 Pulse 78 Resp 18 B/P (MAP) 128/56 (80) Pulse Ox 100 O2 Delivery Room Air Capillary Refill : Height, Weight, BMI Height: '" Weight: lbs. oz. kg; 36.80 BMI Method: General Appearance: No Apparent Distress, WD/WN, Chronically ill Eyes: Bilateral Eye Normal Inspection, Bilateral Eye PERRL, Bilateral Eye EOMI HEENT: PERRL/EOMI, Pale Conjunctivae (L), Pale Conjunctivae (R), Other (She has some dried blood in both nostrils. The left side has some dried blood on the inner surface of the left nasal ala. [facility] staff (attempted to) put a vaginal tampon in left nose which is merely sittin on her upper lip at left nostril orifice. No active bleeding. tampon removed. ) Neck: Full Range of Motion, Normal Inspection Respiratory: No Accessory Muscle Use, No Respiratory Distress Cardiovascular: Normal Peripheral Pulses, Irregularly Irregular, Other (Rate of 76) Gastrointestinal: Normal Bowel Sounds, Non Tender, Soft Extremity: Normal Capillary Refill, Normal Inspection Neurologic/Psychiatric: Alert, Oriented x3 Skin: Normal Color, Warm/Dry, Ecchymosis (Multiple ecchymoses and skin tears. She has a dry gangrenous wound to the posterior right heel. She has a heel suspension boot on the right foot.) Comments Fecal occult blood at the bedside is positive Procedures/Interventions Date of ETT Placement: Oct 21, 2021 Suture Size: 4-0 Progress/Results/Core Measures Suspected Sepsis SIRS Temperature: Pulse: Respiratory Rate: Laboratory Tests 01/06/22 14:15: White Blood Count 13.2H Blood Pressure / Mean: Laboratory Tests 01/06/22 14:15: Creatinine 1.21, INR Comment 1.4, Platelet Count 115L, Total Bilirubin 0.8 Results/Orders Lab Results Laboratory Tests Test 01/06/22 14:15 Range/Units White Blood Count 13.2 H 4.3-11.0 10^3/uL Red Blood Count 1.84 L 3.80-5.11 10^6/uL Hemoglobin 5.6 *L 11.5-16.0 g/dL Hematocrit 18 *L 35-52 % Mean Corpuscular Volume 100 H 80-99 fL Mean Corpuscular Hemoglobin 30 25-34 pg Mean Corpuscular Hemoglobin Concent 31 L 32-36 g/dL Red Cell Distribution Width 24.6 H 10.0-14.5 % Platelet Count 115 L 130-400 10^3/uL Mean Platelet Volume 12.0 9.0-12.2 fL Immature Granulocyte % (Auto) 1 % Neutrophils (%) (Auto) 83 H 42-75 % Lymphocytes (%) (Auto) 10 L 12-44 % Monocytes (%) (Auto) 6 0-12 % Eosinophils (%) (Auto) 0 0-10 % Basophils (%) (Auto) 0 0-10 % Neutrophils # (Auto) 11.0 H 1.8-7.8 10^3/uL Lymphocytes # (Auto) 1.3 1.0-4.0 10^3/uL Monocytes # (Auto) 0.8 0.0-1.0 10^3/uL Eosinophils # (Auto) 0.0 0.0-0.3 10^3/uL Basophils # (Auto) 0.0 0.0-0.1 10^3/uL Immature Granulocyte # (Auto) 0.1 0.0-0.1 10^3/uL Percent Immature Platelet Fraction 8.8 H 0.0-7.6 % Prothrombin Time 17.7 H 12.2-14.7 SEC INR Comment 1.4 0.8-1.4 Sodium Level 135 135-145 MMOL/L Potassium Level 3.3 L 3.6-5.0 MMOL/L Chloride Level 97 L 98-107 MMOL/L Carbon Dioxide Level 24 21-32 MMOL/L Anion Gap 14 5-14 MMOL/L Blood Urea Nitrogen 32 H 7-18 MG/DL Creatinine 1.21 0.60-1.30 MG/DL Estimat Glomerular Filtration Rate 48 BUN/Creatinine Ratio 26 Glucose Level 192 H 70-105 MG/DL Calcium Level 8.3 L 8.5-10.1 MG/DL Corrected Calcium 9.0 8.5-10.1 MG/DL Total Bilirubin 0.8 0.1-1.0 MG/DL Aspartate Amino Transf (AST/SGOT) 17 5-34 U/L Alanine Aminotransferase (ALT/SGPT) 22 0-55 U/L Alkaline Phosphatase 123 40-136 U/L B-Type Natriuretic Peptide 1320.4 H <100.0 PG/ML Total Protein 6.1 L 6.4-8.2 GM/DL Albumin 3.1 L 3.2-4.5 GM/DL My Orders Orders - LEORA AGUILAR APRN Red Cells Leukocytes Reduced (01/06/22 13:57) Bnp [place] (01/06/22 13:57) Cbc With Automated Diff (01/06/22 13:57) Comprehensive Metabolic Panel (01/06/22 13:57) Protime With Inr (01/06/22 13:57) Chest 1 View, Ap/Pa Only (01/06/22 13:57) Ekg Tracing (01/06/22 13:57) Ed Iv/Invasive Line Start (01/06/22 13:57) Fecal Occult Bedside (01/06/22 13:57) Parker Cath (01/06/22 13:57) Pantoprazole Injection (Protonix Injecti (01/06/22 14:00) Type And Screen (01/06/22 13:57) Ed Admission (Communication) (01/06/22 15:14) Medications Given in ED Current Medications Medications Dose Ordered Sig/Shorty Route Start Time Stop Time Status Last Admin Dose Admin Pantoprazole 40 mg ONCE ONCE IV 01/06/22 14:00 01/06/22 14:01 DC 01/06/22 14:24 40 MG Vital Signs/I&O 01/06/22 13:45 Temp 36.7 Pulse 78 Resp 18 B/P (MAP) 128/56 (80) Pulse Ox 100 O2 Delivery Room Air Capillary Refill : Point of Care Testing Fecal Occult: Positive Departure Communication (Admissions) 8560-Discussed with Dr. Jarquin. Will admit consult surgery Dr. Eduardo whom I have notified clear liquid diet, hold the aspirin Plavix and Eliquis. I also spoke with Dr. Floyd from cardiology and he will consult and agrees with holding the aspirin Plavix and Eliquis. Though she has a history of atrial fibrillation she states, she is noted to be sinus rhythm on EKG with a PAC. Impression Primary Impression: Symptomatic anemia Additional Impression: GI bleed Disposition: ADMITTED INPATIENT Condition: Stable Admissions Decision to Admit Reason: Admit from ER (General) Decision to Admit/Date: Jan 06, 2022 Time/Decision to Admit Time: 14:20 Departure-Patient Inst. Referrals: MAYCOL CLAIRE MD (PCP/Family) Primary Care Physician LEORA AGUILAR APRN Jan 06, 2022 14:16
[2022-01-06 14:26] LABS: BASOPHILS % (AUTO) 0 % (0-10); MEAN CORPUSCULAR VOLUME 100 fL (80-99)
[2022-01-06 14:28] LABS: EOSINOPHILS % (AUTO) 0 % (0-10); LYMPHOCYTES # (AUTO) 1.3 10^3/uL (1.0-4.0); LYMPHOCYTES % (AUTO) 10 % (12-44); MEAN CORPUSCULAR HEMOGLOBIN 30 pg (25-34); MEAN CORPUSCULAR HGB CONC 31 g/dL (32-36); MONOCYTES # (AUTO) 0.8 10^3/uL (0.0-1.0); MONOCYTES % (AUTO) 6 % (0-12); NEUTROPHILS % (AUTO) 83 % (42-75); PLATELET COUNT 115 10^3/uL (130-400); WHITE BLOOD COUNT 13.2 10^3/uL (4.3-11.0)
[2022-01-06 14:32] LABS: HEMATOCRIT 18 % (35-52); HEMOGLOBIN 5.6 g/dL (11.5-16.0)
[2022-01-06 14:34] LABS: ALBUMIN 3.1 GM/DL (3.2-4.5); POTASSIUM 3.3 MMOL/L (3.6-5.0)
[2022-01-06 14:35] LABS: CALCIUM 8.3 MG/DL (8.5-10.1)
[2022-01-06 14:36] LABS: TOTAL PROTEIN 6.1 GM/DL (6.4-8.2)
[2022-01-06 14:38] LABS: BILIRUBIN,TOTAL 0.8 MG/DL (0.1-1.0)
[2022-01-06 14:40] LABS: CREATININE SERUM 1.21 MG/DL (0.60-1.30)
[2022-01-06 14:47] LABS: INR 1.4 (0.8-1.4); PROTHROMBIN TIME PATIENT 17.7 SEC (12.2-14.7)
--- NOTE | 2022-01-06 14:49 | Diagnostic Imaging Report ---
EXAMINATION: Portable erect AP chest at 2:17 p.m. INDICATION: Anemia. FINDINGS: The heart size is within normal limits and stable when compared to 11/14/2021. However, the central pulmonary vascularity and the interstitial densities in both lungs are much less prominent than noted on the previous study. There is no evidence for pulmonary congestion at this time. There is still a vague area of slightly increased density along the periphery of the left mid lung and left lung base. This is somewhat more conspicuous than on the prior exam and could be secondary to mild pneumonia/atelectasis which has developed in the interval since the previous study. There is no pleural effusion identified. The mediastinum not widened. The osseous structures are intact. The central venous catheter on the right seen previously has been removed. IMPRESSION: There are mixed results. The pulmonary congestion seen previously has resolved, but there is now a question of mild pneumonia/atelectasis involving the left mid lung and left lung base. Clinical follow-up is recommended. Dictated by: Dictated on workstation # [id number]
[2022-01-06] MEDS ORDERED: FUROSEMIDE 40 MG/4 ML INJ (LASIX) IVP ONE (15:30)
[2022-01-06] MEDS: inSUlin ASPART (NovoLOG) 1 UNIT/0.01 ML (CHARGE PER UNIT) SC SCH ×2 (16:00→21:36)
[2022-01-06] MEDS ORDERED: morphine INJ 4 MG/ML 1 ML (VIAL/SYRINGE) IV PRN (16:00)
[2022-01-06] MEDS ORDERED: NS IV 500 ML 500 ML IV SCH ×2 (16:00)
[2022-01-06] MEDS ORDERED: ONDANSETRON 4 MG (ZOFRAN) ORAL DISSOLVE TAB PO PRN (16:00)
[2022-01-06] MEDS ORDERED: NALOXONE 0.4 MG/ML 1 ML (NARCAN) VIAL IV PRN (16:00)
[2022-01-06] MEDS ORDERED: CALCIUM CARBONATE 500 MG (TUMS) TAB.CHEW PO PRN (16:00)
[2022-01-06] MEDS ORDERED: diphenhydrAMINE 25 MG TAB (BENADRYL) PO PRN (16:00)
[2022-01-06] MEDS ORDERED: diphenhydrAMINE 50 MG/ML INJ (BENADRYL) IVP PRN (16:00)
[2022-01-06] MEDS ORDERED: LACTULOSE SYRUP 10GM/15ML (ENULOSE) 30ML UDC PO PRN (16:00)
[2022-01-06] MEDS ORDERED: ACETAMINOPHEN 325 MG TABLET PO PRN (16:00)
[2022-01-06] MEDS ORDERED: polyethylene glycoL POWDER 17 GM (MIRALAX) PACK PO PRN (16:00)
[2022-01-06] MEDS ORDERED: FUROSEMIDE 40 MG/4 ML INJ (LASIX) IVP NR ×2 (16:00)
[2022-01-06] MEDS ORDERED: MELATONIN 3 MG TABLET PO PRN (16:00)
[2022-01-06] MEDS ORDERED: MILK OF MAGNESIA 400 MG/5 ML 30 ML UDC PO PRN (16:00)
[2022-01-06] MEDS ORDERED: ANTACID SUSP 30 ML UDC (MYLANTA) PO PRN (16:00)
[2022-01-06] MEDS ORDERED: ONDANSETRON 4 MG/2 ML (SDV) Z0FRAN IV PRN (16:00)
[2022-01-06] MEDS ORDERED: BISACODYL 10 MG SUPP (DULCOLAX) PR PRN (16:00)
[2022-01-06] MEDS ORDERED: RT-ALBUTEROL SULF 2.5 MG/3 ML PRE-MIX VIAL INH PRN (16:30)
--- NOTE | 2022-01-06 16:34 | Consultation-Cardiology ---
HPI-Cardiology Cardiology Consultation Date of Consultation 01/06/22 Date of Admission Time Seen by Provider: 16:28 Indication: Coronary artery disease HPI 71-year-old lady with history of coronary artery disease, had myocardial infarction treated with stenting in June 2021, had another admission in October 2021 with non-ST elevation myocardial infarction. Patient is a [facility] resident, she was admitted with severe anemia that was noted on routine lab work. She has been complaining of generalized fatigue, loss of energy. Denied any chest pain or shortness of breath. No palpitation. No syncope. Reporting that had no energy. Home Medications & Allergies Allergies: Coded Allergies: Penicillins (Unverified Adverse Reaction, Unknown, 01/16/21) cephalexin (Unverified Adverse Reaction, Unknown, 01/16/21) ciprofloxacin (Unverified Adverse Reaction, Unknown, 01/16/21) erythromycin base (Unverified Adverse Reaction, Unknown, 01/16/21) Home Medication List Reviewed: Yes [id number] Hx Patient Social History Smoking Status: Former Smoker Type Used: Cigarettes 2nd Hand Smoke Exposure: Yes Recent Hopitalizations: No Have you traveled recently?: No Alcohol Use?: No Immunizations Up To Date Tetanus Booster (TDap): Unknown Date of Influenza Vaccine: Sep 18, 2021 Past Medical History Discussed below Family Medical History Significant Family History: No Pertinent Family Hx Family Medical Hx Noncontributory Review of Systems-General Review of Systems Constitutional: see HPI, malaise, weakness EENTM: see HPI Respiratory: no symptoms reported Cardiovascular: no symptoms reported Gastrointestinal: no symptoms reported, see HPI Genitourinary: no symptoms reported Musculoskeletal: no symptoms reported Skin: no symptoms reported, other (Excessive bruising) Psychiatric/Neurological: No Symptoms Reported Reviewed Test Results Reviewed Test Results Lab Laboratory Tests Test 01/06/22 14:15 01/06/22 15:30 Range/Units White Blood Count 13.2 H 4.3-11.0 10^3/uL Red Blood Count 1.84 L 3.80-5.11 10^6/uL Hemoglobin 5.6 *L 11.5-16.0 g/dL Hematocrit 18 *L 35-52 % Mean Corpuscular Volume 100 H 80-99 fL Mean Corpuscular Hemoglobin 30 25-34 pg Mean Corpuscular Hemoglobin Concent 31 L 32-36 g/dL Red Cell Distribution Width 24.6 H 10.0-14.5 % Platelet Count 115 L 130-400 10^3/uL Mean Platelet Volume 12.0 9.0-12.2 fL Immature Granulocyte % (Auto) 1 % Neutrophils (%) (Auto) 83 H 42-75 % Lymphocytes (%) (Auto) 10 L 12-44 % Monocytes (%) (Auto) 6 0-12 % Eosinophils (%) (Auto) 0 0-10 % Basophils (%) (Auto) 0 0-10 % Neutrophils # (Auto) 11.0 H 1.8-7.8 10^3/uL Lymphocytes # (Auto) 1.3 1.0-4.0 10^3/uL Monocytes # (Auto) 0.8 0.0-1.0 10^3/uL Eosinophils # (Auto) 0.0 0.0-0.3 10^3/uL Basophils # (Auto) 0.0 0.0-0.1 10^3/uL Immature Granulocyte # (Auto) 0.1 0.0-0.1 10^3/uL Percent Immature Platelet Fraction 8.8 H 0.0-7.6 % Prothrombin Time 17.7 H 12.2-14.7 SEC INR Comment 1.4 0.8-1.4 Sodium Level 135 135-145 MMOL/L Potassium Level 3.3 L 3.6-5.0 MMOL/L Chloride Level 97 L 98-107 MMOL/L Carbon Dioxide Level 24 21-32 MMOL/L Anion Gap 14 5-14 MMOL/L Blood Urea Nitrogen 32 H 7-18 MG/DL Creatinine 1.21 0.60-1.30 MG/DL Estimat Glomerular Filtration Rate 48 BUN/Creatinine Ratio 26 Glucose Level 192 H 70-105 MG/DL Calcium Level 8.3 L 8.5-10.1 MG/DL Corrected Calcium 9.0 8.5-10.1 MG/DL Total Bilirubin 0.8 0.1-1.0 MG/DL Aspartate Amino Transf (AST/SGOT) 17 5-34 U/L Alanine Aminotransferase (ALT/SGPT) 22 0-55 U/L Alkaline Phosphatase 123 40-136 U/L B-Type Natriuretic Peptide 1320.4 H <100.0 PG/ML Total Protein 6.1 L 6.4-8.2 GM/DL Albumin 3.1 L 3.2-4.5 GM/DL Lactic Acid Level 5.48 *H 0.50-2.00 MMOL/L Physical Exam Physical Exam Vital Signs Vital Signs - First Documented 01/06/22 01/06/22 13:45 16:16 Temp 36.7 Pulse 78 Resp 18 B/P (MAP) 128/56 (80) Pulse Ox 100 O2 Delivery Room Air FiO2 21 Capillary Refill : Height, Weight, BMI Height: '" Weight: lbs. oz. kg; 31.00 BMI Method: General Appearance: No Apparent Distress, WD/WN, Chronically ill Eyes: Bilateral Eye Normal Inspection, Bilateral Eye PERRL, Bilateral Eye EOMI HEENT: PERRL/EOMI, Pale Conjunctivae (L), Pale Conjunctivae (R), Other (She has some dried blood in both nostrils. The left side has some dried blood on the inner surface of the left nasal ala. correction staff (attempted to) put a vaginal tampon in left nose which is merely sittin on her upper lip at left nostril orifice. No active bleeding. tampon removed. ) Neck: Full Range of Motion, Normal Inspection Respiratory: No Accessory Muscle Use, No Respiratory Distress Cardiovascular: Normal Peripheral Pulses, Irregularly Irregular, Other (Rate of 76) Gastrointestinal: Normal Bowel Sounds, Non Tender, Soft Back: Normal Inspection, No CVA Tenderness, No Vertebral Tenderness Extremity: Normal Capillary Refill, Normal Inspection Neurologic/Psychiatric: Alert, Oriented x3 Skin: Normal Color, Warm/Dry, Ecchymosis (Multiple ecchymoses and skin tears. She has a dry gangrenous wound to the posterior right heel. She has a heel suspension boot on the right foot.) Lymphatic: No Adenopathy A/P-Cardiology Admission Diagnosis Anemia Coronary artery disease Congestive heart failure, chronic compensated left ventricular diastolic dysfunction Hyperlipidemia Assessment/Plan Severe anemia, excessive bruising, probably GI bleed, recommend blood transfusio n as needed and monitor H&H. Hold aspirin and Plavix. Coronary artery disease, history of non-ST elevation myocardial infarction occurred in October 2021 that was treated conservatively, it was reported that she had significant disease in the right coronary artery that was treated conservatively. Patient had stenting done in June 2021 after an acute myocardial infarction at [facility]. She has been maintained on aspirin and Plavix. Patient did not receive a full year of treatment but exceeded 6 months margin of treatment. Due to the active bleeding and the severe anemia I recommend discontinuation of aspirin and Plavix. Will consider the use of aspirin 81 mg for senior care treatment if patient can tolerate it. Congestive heart failure, chronic compensated left ventricular diastolic dysfunction. Receiving Lasix twice daily. Monitor H&H. Peripheral arterial disease, it was reported that she had total occlusion of the right superficial femoral artery, patient was not aware of any peripheral arterial disease prior to her hospitalization at [facility]. Chronic kidney disease stage III, continue to monitor renal function Hypertension, monitor blood pressure. Hyperlipidemia, maintained on statin, monitor lipids BMI 31. We discussed weight loss. Tobaccoism, patient has stopped smoking in June 2021, encouraged to continue with smoking cessation Patient is DNR, she is currently in a [facility] resident. Clinical Quality Measures DVT/VTE Risk/Contraindication: Contraindications-Pharm: Other *list below* Other: INGRID Schaefer MD Jan 06, 2022 16:34
--- NOTE | 2022-01-06 17:23 | Consultation - Surgery ---
CHRIS CHANEY 01/06/22 1723: History of Present Illness History of Present Illness Patient Consulted On(raúl/time) 01/06/22 17:14 Date Seen by Provider: Jan 06, 2022 Time Seen by Provider: 17:00 Reason for Visit: Coronary artery disease History of Present Illness Consult: Anemia HPI is limited due to unreliability of the patients information. A 71yo presented to the ER after being transferred from [facility] for generalized weakness. She went to the ER in [place] due to outpatient labs showing a hemoglobin of 5.6. The patient states that she has been having generalized weakness for the pass month and a half which she does not recall any particular event causing this, she describes it as low energy and denies fatigue or pain in her legs. Nothing makes her weakness better or worse. She denies SOB, CP, epigastric pain or abdominal pain, blood in the urine, stool, or coughing blood, or melena. She reports having her first ever EGD and colonoscopy three weeks in [place], but does the recall the reason for it or the results. She denied PMH or her history of surgeries, allergies, and family history, her records indicate that she has an extensive list of past medical history that she denies. Allergies and Home Medications Allergies Coded Allergies: Penicillins (Unverified Adverse Reaction, Unknown, 01/16/21) cephalexin (Unverified Adverse Reaction, Unknown, 01/16/21) ciprofloxacin (Unverified Adverse Reaction, Unknown, 01/16/21) erythromycin base (Unverified Adverse Reaction, Unknown, 01/16/21) Patient Home Medication List Alprazolam (Alprazolam) 0.5 Mg Tablet, 0.5 MG PO Q8H PRN for ANXIETY Prescribed by: DAVEY JARQUIN on 11/18/21 1153 Amitriptyline HCl (Amitriptyline HCl) 25 Mg Tablet, 25 MG PO HS, (Reported) Entered as Reported by: FARHEEN PASTOR on 11/15/21 1224 Aspirin (Aspirin EC) 81 Mg Tablet.dr, 81 MG PO DAILY, (Reported) Entered as Reported by: FARHEEN PASTOR on 11/15/21 1224 Atorvastatin Calcium (Atorvastatin Calcium) 80 Mg Tablet, 80 MG PO HS, (Reported) Entered as Reported by: FARHEEN PASTOR on 11/15/21 1224 Budesonide/Formoterol Fumarate (Symbicort 160-4.5 Mcg Inhaler) 10.2 Gm Hfa.aer.ad, 2 PUFF IH BID, (Reported) Entered as Reported by: FARHEEN PASTOR on 11/15/21 1224 Calcium Carbonate (Calcium Carbonate) 600 Mg Tablet, 600 MG PO DAILY, (Reported) Entered as Reported by: FARHEEN PASTOR on 11/15/21 1224 Clopidogrel Bisulfate (Clopidogrel) 75 Mg Tablet, 75 MG PO DAILY, (Reported) Entered as Reported by: FARHEEN PASTOR on 11/15/21 1224 Dicyclomine HCl (Dicyclomine HCl) 10 Mg Capsule, 10 MG PO ACHS, (Reported) Entered as Reported by: FARHEEN PASTOR on 11/15/21 1224 Empagliflozin (Jardiance) 10 Mg Tablet, 10 MG PO DAILY, (Reported) Entered as Reported by: FARHEEN PASTOR on 11/15/21 1224 Enoxaparin Sodium (Enoxaparin Sodium) 40 Mg/0.4 Ml Syringe, 40 MG SQ DAILY, (Reported) Entered as Reported by: FARHEEN PASTOR on 11/15/21 1224 Gabapentin (Gabapentin) 400 Mg Capsule, 400 MG PO TID, (Reported) Entered as Reported by: FARHEEN PASTOR on 11/15/21 1224 Hydrocodone/Acetaminophen (Hydrocodone-Acetamin 10-325 mg) 1 Each Tablet, 1 EACH PO Q4H PRN for PAIN-MODERATE (5-7) Prescribed by: DAVEY JARQUIN on 11/18/21 1153 Insulin NPH Human Isophane (Novolin N) 100 Unit/1 Ml Vial, 10 UNIT SQ BID, (Reported) Entered as Reported by: FARHEEN PASTOR on 11/15/21 1224 Insulin Regular, Human (Novolin R) 100 Unit/1 Ml Vial, 10 UNIT SC TID, (Reported) Entered as Reported by: FARHEEN PASTOR on 11/15/21 1224 Ipratropium/Albuterol Sulfate (Iprat-Albut 0.5-3(2.5) mg/3 ml) 3 Ml Ampul.neb, 3 ML IH BID, (Reported) Entered as Reported by: FARHEEN PASTOR on 11/15/21 1224 Levothyroxine Sodium (Levothyroxine Sodium) 88 Mcg Tablet, 88 MCG PO DAILY, (Reported) Entered as Reported by: FARHEEN PASTOR on 11/15/21 122 Magnesium Oxide (Mag-Oxide) 200 Mg Tablet, 400 MG PO DAILY Prescribed by: MONICA LOVE on 12/07/211801 [place]-3 Fatty Acids/Fish Oil ([place] 3 1,000 mg Softgel) 1 Each Capsule, 1 EACH PO DAILY, (Reported) Entered as Reported by: FARHEEN PASTOR on 11/15/21 122 Pantoprazole Sodium (Pantoprazole Sodium) 40 Mg Tablet.dr, 40 MG PO DAILY, (Reported) Entered as Reported by: FARHEEN PASTOR on 11/15/21 122 Polyethylene Glycol 3350 (Miralax) 17 Gm Powd.pack, 8.5 GM PO BID, (Reported) Entered as Reported by: FARHEEN PASTOR on 11/15/21 122 Potassium Chloride (Potassium Chloride) 20 Meq Tab.er.prt, 20 MEQ PO BID Prescribed by: MONICA LOVE on 12/07/211801 Prednisone (Prednisone) 5 Mg Tablet, 5 MG PO DAILY, (Reported) Entered as Reported by: FARHEEN PASTOR on 11/15/21 122 Ropinirole HCl (Ropinirole HCl) 2 Mg Tablet, 4 MG PO HS, (Reported) Entered as Reported by: FARHEEN PASTOR on 11/15/21 122 Sulfamethoxazole/Trimethoprim (Bactrim Ds Tablet) 1 Each Tablet, 1 EACH PO BID Prescribed by: MONICA LOVE on 12/07/211801 Tizanidine HCl (Tizanidine HCl) 2 Mg Tablet, 2 MG PO TID PRN for MUSCLE SPASMS, (Reported) Entered as Reported by: FARHEEN PASTOR on 11/15/21 122 Torsemide (Torsemide) 20 Mg Tablet, 20 MG PO DAILY, (Reported) Entered as Reported by: FARHEEN PASTOR on 11/15/21 122 Past Mbfpecq-Wdqhnk-Njpxjx Hx Patient Social History Smoking Status: Former Smoker Type Used: Cigarettes 2nd Hand Smoke Exposure: Yes Recent Hopitalizations: No Alcohol Use?: No Have you traveled recently?: No Immunizations Up To Date Tetanus Booster (TDap): Unknown Date of Influenza Vaccine: Sep 07, 2021 Seasonal Allergies Seasonal Allergies: No Surgeries History of Surgeries: Yes (Bilat knee arthroscopy, L TKR, Bladder suspension, Pituitary tumor exc) Surgeries: Abdominal, Bladder Surgery, Gallbladder, Joint Replacement, Orthopedic Respiratory History of Respiratory Disorde: Yes (Tobaccoism) Respiratory Disorders: COPD Cardiovascular History of Cardiac Disorders: Yes Cardiac Disorders: Heart Attack, High Cholesterol, Hypertension, Peripheral Vascular Neurological History of Neurological Disord: No Genitourinary History of Genitourinary Disor: Yes (Bladder suspension for incont) Genitourinary Disorders: Bladder Infection Gastrointestinal History of Gastrointestinal Di: Yes (EGD/Colonoscopy; 4 ulcers) Gastrointestinal Disorders: Gastroesophageal Reflux Musculoskeletal History of Musculoskeletal Dis: Yes Musculoskeletal Disorders: Arthritis Endocrine History of Endocrine Disorders: Yes Endocrine Disorders: Hypothyroidsim, Diabetes, Non-Insulin dep HEENT History of HEENT Disorders: No Cancer History of Cancer: No Psychosocial History of Psychiatric Problem: Yes Behavioral Health Disorders: Anxiety Integumentary History of Skin or Integumenta: No (thin skin with numerous skin tears/ecchymosis) Blood Transfusions History of Blood Disorders: No Family Medical History Significant Family History: No Pertinent Family Hx Review of Systems-General Constitutional: No fever; weakness EENTM: No eye pain Respiratory: No hemoptysis, No short of breath Cardiovascular: No chest pain, No palpitations Gastrointestinal: No abdominal pain, No constipation, No diarrhea, No hematemesis, No heartburn, No melena, No nausea, No vomiting Genitourinary: No hematuria, No pain Musculoskeletal: No back pain, No neck pain Psychiatric/Neurological: Denies Headache; Weakness (generalized body weakness ) Physical Exam-General Problems Physical Exam Vital Signs Vital Signs - First Documented 01/06/22 01/06/22 13:45 16:16 Temp 36.7 Pulse 78 Resp 18 B/P (MAP) 128/56 (80) Pulse Ox 100 O2 Delivery Room Air FiO2 21 Capillary Refill : General Appearance: no apparent distress, other (poor recall, unreliable information ) HEENT: PERRL/EOMI; No photophobia; other (she has dried blood in her nose) Neck: non-tender, full range of motion Respiratory: No chest non-tender; no respiratory distress, no accessory muscle use Cardiovascular: normal peripheral pulses, irregularly irregular Gastrointestinal: non tender; No distended Extremities: No calf tenderness; other (LE b/l has dried blood, wound on right heel ) Skin: No cyanosis; other (similiar dried blood markings on left chest) Data Review Labs Laboratory Tests 01/06/22 14:15: White Blood Count 13.2H, Red Blood Count 1.84L, Hemoglobin 5.6*L, Hematocrit 18*L, Mean Corpuscular Volume 100H, Mean Corpuscular Hemoglobin 30, Mean Corpuscular Hemoglobin Concent 31L, Red Cell Distribution Width 24.6H, Platelet Count 115L, Mean Platelet Volume 12.0, Immature Granulocyte % (Auto) 1, Neutrophils (%) (Auto) 83H, Lymphocytes (%) (Auto) 10L, Monocytes (%) (Auto) 6, Eosinophils (%) (Auto) 0, Basophils (%) (Auto) 0, Neutrophils # (Auto) 11.0H, Lymphocytes # (Auto) 1.3, Monocytes # (Auto) 0.8, Eosinophils # (Auto) 0.0, Basophils # (Auto) 0.0, Immature Granulocyte # (Auto) 0.1, Percent Immature Platelet Fraction 8.8H, Prothrombin Time 17.7H, INR Comment 1.4, Sodium Level 135, Potassium Level 3.3L, Chloride Level 97L, Carbon Dioxide Level 24, Anion Gap 14, Blood Urea Nitrogen 32H, Creatinine 1.21, Estimat Glomerular Filtration Rate 48, BUN/Creatinine Ratio 26, Glucose Level 192H, Calcium Level 8.3L, Corrected Calcium 9.0, Total Bilirubin 0.8, Aspartate Amino Transf (AST/SGOT) 17, Alanine Aminotransferase (ALT/SGPT) 22, Alkaline Phosphatase 123, B-Type Natriuretic Peptide 1320.4H, Total Protein 6.1L, Albumin 3.1L 01/06/22 15:30: Lactic Acid Level 5.48*H 01/06/22 16:45: Assessment/Plan Assessment/Plan Assessment/Plan Anemia -blood transfusion, IVF, Hold anticoagulation meds, repeat CBC, clear liquid diet, NPO after midnight, get consent for possible EGD and/or colonoscopy based on if her past medical history of EGD and Colonoscopy is not accurate Chronic kidney disease stage III -Monitor renal function with BMP and urine output Hypertension -monitor blood pressure. History of Coronary artery disease History of Congestive heart failure History of Peripheral arterial disease total occlusion of the right superficial femoral artery Clinical Quality Measures DVT/VTE Risk/Contraindication: Contraindications-Pharm: Other *list below* Other: SUELLEN Gastelum DO 01/06/221920: History of Present Illness History of Present Illness Time Seen by Provider: 18:30 History of Present Illness Surgery asked to consult regarding anemia. HPI per ED: To ER by [facility] from [facility] with reports of general weakness. She had outpatient labs drawn today showing hemoglobin of 5.6, hematocrit of 18, platelet count of 112 and a white count of 12.1. She is on aspirin Plavix and Eliquis (Eliquis for right leg DVT reportedly but I do not see that that has been filled from the med list available to me). She denies any abdominal pain. No fevers or chills. She has a history of stage III CKD,HFpEF, PAD, HLD, obesity, COPD, small vessel CAD, DVT right lower extremity, GERD, hypothyroidism, NIDDM, A-fib. She has a wound on the right heel. She is DO NOT RESUSCITATE status. Timing/Duration: 1 Week Severity: Moderate Associated Systoms: No Chest Pain, No Cough; Weakness When I spoke to pt she denied hematochezia and melena. Allergies and Home Medications Allergies Coded Allergies: Penicillins (Unverified Adverse Reaction, Unknown, 01/16/21) cephalexin (Unverified Adverse Reaction, Unknown, 01/16/21) ciprofloxacin (Unverified Adverse Reaction, Unknown, 01/16/21) erythromycin base (Unverified Adverse Reaction, Unknown, 01/16/21) Patient Home Medication List Home Medication List Reviewed: Yes Alprazolam (Alprazolam) 0.5 Mg Tablet, 0.5 MG PO Q8H PRN for ANXIETY Prescribed by: DAVEY JARQUIN on 11/18/21 1153 Amitriptyline HCl (Amitriptyline HCl) 25 Mg Tablet, 25 MG PO HS, (Reported) Entered as Reported by: FARHEEN PASTOR on 11/15/21 1224 Aspirin (Aspirin EC) 81 Mg Tablet.dr, 81 MG PO DAILY, (Reported) Entered as Reported by: FARHEEN PASTOR on 11/15/21 1224 Atorvastatin Calcium (Atorvastatin Calcium) 80 Mg Tablet, 80 MG PO HS, ( Reported) Entered as Reported by: FARHEEN PASTOR on 11/15/21 1224 Budesonide/Formoterol Fumarate (Symbicort 160-4.5 Mcg Inhaler) 10.2 Gm Hfa.aer.ad, 2 PUFF IH BID, (Reported) Entered as Reported by: FARHEEN PASTOR on 11/15/21 1224 Calcium Carbonate (Calcium Carbonate) 600 Mg Tablet, 600 MG PO DAILY, (Reported) Entered as Reported by: FARHEEN PASTOR on 11/15/21 1224 Clopidogrel Bisulfate (Clopidogrel) 75 Mg Tablet, 75 MG PO DAILY, (Reported) Entered as Reported by: FARHEEN PASTOR on 11/15/21 1224 Dicyclomine HCl (Dicyclomine HCl) 10 Mg Capsule, 10 MG PO ACHS, (Reported) Entered as Reported by: FARHEEN PASTOR on 11/15/21 1224 Empagliflozin (Jardiance) 10 Mg Tablet, 10 MG PO DAILY, (Reported) Entered as Reported by: FARHEEN PASTOR on 11/15/21 1224 Enoxaparin Sodium (Enoxaparin Sodium) 40 Mg/0.4 Ml Syringe, 40 MG SQ DAILY, (Reported) Entered as Reported by: FARHEEN PASTOR on 11/15/21 1224 Gabapentin (Gabapentin) 400 Mg Capsule, 400 MG PO TID, (Reported) Entered as Reported by: FARHEEN PASTOR on 11/15/21 1224 Hydrocodone/Acetaminophen (Hydrocodone-Acetamin 10-325 mg) 1 Each Tablet, 1 EACH PO Q4H PRN for PAIN-MODERATE (5-7) Prescribed by: DAVEY JARQUIN on 11/18/21 1153 Insulin NPH Human Isophane (Novolin N) 100 Unit/1 Ml Vial, 10 UNIT SQ BID, (Reported) Entered as Reported by: FARHEEN PASTOR on 11/15/21 1224 Insulin Regular, Human (Novolin R) 100 Unit/1 Ml Vial, 10 UNIT SC TID, (Reported) Entered as Reported by: FARHEEN PASTOR on 11/15/21 1224 Ipratropium/Albuterol Sulfate (Iprat-Albut 0.5-3(2.5) mg/3 ml) 3 Ml Ampul.neb, 3 ML IH BID, (Reported) Entered as Reported by: FARHEEN PASTOR on 11/15/21 1224 Levothyroxine Sodium (Levothyroxine Sodium) 88 Mcg Tablet, 88 MCG PO DAILY, (Reported) Entered as Reported by: FARHEEN PASTOR on 11/15/21 122 Magnesium Oxide (Mag-Oxide) 200 Mg Tablet, 400 MG PO DAILY Prescribed by: MONICA LOVE on 12/07/211801 [place]-3 Fatty Acids/Fish Oil ([place] 3 1,000 mg Softgel) 1 Each Capsule, 1 EACH PO DAILY, (Reported) Entered as Reported by: FARHEEN PASTOR on 11/15/21 122 Pantoprazole Sodium (Pantoprazole Sodium) 40 Mg Tablet.dr, 40 MG PO DAILY, (Reported) Entered as Reported by: FARHEEN PASTOR on 11/15/21 122 Polyethylene Glycol 3350 (Miralax) 17 Gm Powd.pack, 8.5 GM PO BID, (Reported) Entered as Reported by: FARHEEN PASTOR on 11/15/21 122 Potassium Chloride (Potassium Chloride) 20 Meq Tab.er.prt, 20 MEQ PO BID Prescribed by: MONICA LOVE on 12/07/211801 Prednisone (Prednisone) 5 Mg Tablet, 5 MG PO DAILY, (Reported) Entered as Reported by: FARHEEN PASTOR on 11/15/21 122 Ropinirole HCl (Ropinirole HCl) 2 Mg Tablet, 4 MG PO HS, (Reported) Entered as Reported by: FARHEEN PASTOR on 11/15/21 122 Sulfamethoxazole/Trimethoprim (Bactrim Ds Tablet) 1 Each Tablet, 1 EACH PO BID Prescribed by: MONICA LOVE on 12/07/21 180 Tizanidine HCl (Tizanidine HCl) 2 Mg Tablet, 2 MG PO TID PRN for MUSCLE SPASMS, (Reported) Entered as Reported by: FARHEEN PASTOR on 11/15/21 122 Torsemide (Torsemide) 20 Mg Tablet, 20 MG PO DAILY, (Reported) Entered as Reported by: FARHEEN PASTOR on 11/15/21 122 Past Owmtgxk-Bdtxvz-Paikrl Hx Patient Social History Smoking Status: Former Smoker Type Used: Cigarettes Alcohol Use?: No Surgeries History of Surgeries: Yes Surgeries: Abdominal, Gallbladder Respiratory History of Respiratory Disorde: Yes Respiratory Disorders: COPD Cardiovascular History of Cardiac Disorders: Yes Cardiac Disorders: Coronary Artery Disease, Hypertension Neurological History of Neurological Disord: Yes Neurological Disorders: Dementia Gastrointestinal History of Gastrointestinal Di: Yes Gastrointestinal Disorders: Gastrointestinal Bleed, Obstructive Bowel, Gall Bladder Disease Family Medical History Significant Family History: No Pertinent Family Hx Review of Systems-General Constitutional: No fever; weakness EENTM: No eye pain Respiratory: No hemoptysis, No short of breath Cardiovascular: No chest pain, No palpitations Gastrointestinal: No abdominal pain, No constipation, No hematemesis; other (midline incision is still draining) Genitourinary: No hematuria, No pain Psychiatric/Neurological: Denies Headache; Weakness (generalized body weakness ) Physical Exam-General Problems Physical Exam General Appearance: no apparent distress (chronically ill), other (poor recall, unreliable information ) Eyes: Bilateral Eye PERRL, Bilateral Eye EOMI HEENT: No photophobia; other (she has dried blood in her nose) Respiratory: chest non-tender, lungs clear, no respiratory distress, no accessory muscle use Cardiovascular: normal peripheral pulses, irregularly irregular Gastrointestinal: non tender, soft; No distended; other (midline incision has 3 small openings and fluid draining from bottom one) Extremities: no calf tenderness, other (LE b/l has dried blood, wound on right heel ) Neurologic/Psychiatric: disoriented x 3 Skin: No cyanosis; other (similiar dried blood markings on left chest and bruising/petechia all over) Assessment/Plan Assessment/Plan Assessment/Plan nemia -blood transfusion, IVF, Hold anticoagulation meds, repeat CBC, clear liquid diet, NPO after midnight, get consent for possible EGD and/or colonoscopy based on if her past medical history of EGD and Colonoscopy is not accurate Chronic kidney disease stage III -Monitor renal function with BMP and urine output Hypertension -monitor blood pressure. History of Coronary artery disease History of Congestive heart failure History of Peripheral arterial disease total occlusion of the right superficial femoral artery Supervisory-Addendum Brief Verification & Attestation Participated in pt care: history, MDM, physical Personally performed: exam, history, MDM, supervision of care Care discussed with: Medical Student Procedures: n/a Verification and Attestation of Medical Student E/M Service A medical student performed and documented this service. I then reviewed and verified all information documented by the medical student and made modifications to such information, when appropriate. I personally performed a physical exam, medical decision making and then discussed any differences between the notes and made revisions as necessary to create one note. Suellen Gracia , 01/06/22 , 19:26 CHRIS CHANEY Jan 06, 2022 17:23 SUELLEN GRACIA DO Jan 06, 2022 19:21
[2022-01-06] MEDS ORDERED: MEROPENEM 500 MG/NS 100 ML IVPB IV SCH ×2 (18:00)
[2022-01-06] MEDS ORDERED: CEFEPIME INJECTION 1,000 MG in NS (IVPB) 50 ML IV SCH (21:00)
[2022-01-06] MEDS: RT-ALBUTEROL/IPRATROPIUM 3 ML (DUONEB) VIAL INH SCH (21:20)
[2022-01-06] MEDS: SENNOSIDES 8.6 MG (SENOKOT) TAB PO SCH (21:36)
[2022-01-06] MEDS: MEROPENEM 500 MG in NS (IVPB) 100 ML IV SCH (21:37)
[2022-01-06] MEDS: DOCUSATE SODIUM 100 MG (COLACE) CAP PO SCH (21:37)
[2022-01-07] VITALS (8 sets, daily range): BP systolic 104–128; BP diastolic 46–72
[2022-01-07] MEDS: MEROPENEM 500 MG in NS (IVPB) 100 ML IV SCH ×4 (03:00→22:47)
[2022-01-07 05:13] LABS: BASOPHILS % (AUTO) 0 % (0-10); EOSINOPHILS % (AUTO) 0 % (0-10); HEMATOCRIT 22 % (35-52); HEMOGLOBIN 7.5 g/dL (11.5-16.0); LYMPHOCYTES # (AUTO) 1.3 10^3/uL (1.0-4.0); LYMPHOCYTES % (AUTO) 12 % (12-44); MEAN CORPUSCULAR HEMOGLOBIN 31 pg (25-34); MEAN CORPUSCULAR HGB CONC 34 g/dL (32-36); MEAN CORPUSCULAR VOLUME 92 fL (80-99); MEAN PLATELET VOLUME 11.4 fL (9.0-12.2); MONOCYTES # (AUTO) 0.5 10^3/uL (0.0-1.0); MONOCYTES % (AUTO) 4 % (0-12); NEUTROPHILS # (AUTO) 8.9 10^3/uL (1.8-7.8); NEUTROPHILS % (AUTO) 83 % (42-75); PLATELET COUNT 91 10^3/uL (130-400); WHITE BLOOD COUNT 10.8 10^3/uL (4.3-11.0)
[2022-01-07 05:20] LABS: ALBUMIN 2.7 GM/DL (3.2-4.5)
[2022-01-07 05:21] LABS: POTASSIUM 3.8 MMOL/L (3.6-5.0)
[2022-01-07 05:23] LABS: TOTAL PROTEIN 5.5 GM/DL (6.4-8.2)
[2022-01-07 05:25] LABS: BILIRUBIN,TOTAL 1.2 MG/DL (0.1-1.0)
[2022-01-07 05:27] LABS: CREATININE SERUM 1.1 MG/DL (0.60-1.30)
[2022-01-07] MEDS: inSUlin ASPART (NovoLOG) 1 UNIT/0.01 ML (CHARGE PER UNIT) SC SCH ×4 (05:48→20:39)
--- NOTE | 2022-01-07 05:58 | History & Physical-Hospitalist ---
History of Present Illness HPI/Chief Complaint CC: Severe symptomatic anemia HPI: This is a 71 yr old WF known to me from prior admissions. 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 She presented to the ER with symptomatic anemia. She was found to have a hemoglobin of 5.6 requiring a transfusion. She currently has wounds and wound care has been consulted. She is currently confused. PICC line will be placed. Protonix will be started for empiric coverage of GI bleeding. Dr. Eduardo may need to do an EGD. We will move her down to 4th floor. She remains a DNR. Source: patient Exam Limitations: clinical condition Date Seen 01/07/22 Time Seen by a Provider: 10:30 Attending Physician Katya Hernandez Pankaj K MD Referring Physician Date of Admission Jan 06, 2022 at 15:16 Home Medications & Allergies Home Medications Reviewed patient Home Medication Reconciliation performed by pharmacy medication reconciliations measurement and sensing technician and/or nursing. Patients Allergies have been reviewed. Allergies Allergies Coded Allergies Penicillins (Unverified Adverse Reaction, Unknown, 01/16/21) cephalexin (Unverified Adverse Reaction, Unknown, 01/16/21) ciprofloxacin (Unverified Adverse Reaction, Unknown, 01/16/21) erythromycin base (Unverified Adverse Reaction, Unknown, 01/16/21) Past Afamspv-Fpzuoh-Wzhjkk Hx Patient Social History Marrital Status: Employed/Student: retired Tobacco Use?: No Smoking Status: Former Smoker Use of E-Cig and/or Vaping dev: No Substance use?: No Alcohol Use?: No Pt feels they are or have been: No Immunizations Up To Date Date of Influenza Vaccine: Sep 07, 2021 First/Initial COVID19 Vaccinat: 2020 Second COVID19 Vaccination Lon: 2020 Tetanus Booster (TDap): Unknown Seasonal Allergies Seasonal Allergies: No Current Status status: No Advance Directives: Yes Advance Directive Location: Copy from prev record Primary Language: Romanian Preferred Spoken Language: Romanian Is interpretation needed?: No Implanted or Applied Medical D: Stents Past Medical History Surgeries: Abdominal, Gallbladder COPD Coronary Artery Disease, Hypertension Dementia Bladder Infection Gastrointestinal Bleed, Obstructive Bowel, Gall Bladder Disease Arthritis Hypothyroidsim, Diabetes, Non-Insulin dep Anxiety Blood Disorders: No PMHx: Congestive heart failure Coronary artery disease with stenting Ischemic bowel requiring resection COPD Diabetes SurgHx: Bowel resection for ischemic colitis Coronary artery stenting Family Medical History No Pertinent Family Hx Review of Systems Constitutional: see HPI, malaise, weakness EENTM: no symptoms reported Respiratory: no symptoms reported Cardiovascular: no symptoms reported Gastrointestinal: no symptoms reported Genitourinary: no symptoms reported Musculoskeletal: no symptoms reported Skin: no symptoms reported Psychiatric/Neurological: Other (confusion) Physical Exam Physical Exam Vital Signs Vital Signs - First Documented 01/06/22 01/06/22 13:45 16:16 Temp 36.7 Pulse 78 Resp 18 B/P (MAP) 128/56 (80) Pulse Ox 100 O2 Delivery Room Air FiO2 21 Capillary Refill : Height, Weight, BMI Height: '" Weight: lbs. oz. kg; 31.02 BMI Method: General Appearance: Anxious, Chronically ill, Obese, Other (frail, chronic) Eyes: Right Eye Normal Inspection, Right Eye PERRL HEENT: PERRL/EOMI, Normal ENT Inspection, Pharynx Normal, Moist Mucous Membranes Neck: Full Range of Motion, Normal Inspection, Non Tender Respiratory: Chest Non Tender, Lungs Clear, Normal Breath Sounds, No Accessory Muscle Use, No Respiratory Distress, Decreased Breath Sounds Cardiovascular: Regular Rate, Rhythm, No Edema, No Gallop, No JVD, No Murmur, Normal Peripheral Pulses Gastrointestinal: Normal Bowel Sounds, No Organomegaly, No Pulsatile Mass, Non Tender, Soft Back: Normal Inspection, No CVA Tenderness, No Vertebral Tenderness Extremity: Normal Capillary Refill, Normal Inspection, Normal Range of Motion, Non Tender, No Calf Tenderness, No Pedal Edema Neurologic/Psychiatric: Alert, No Motor/Sensory Deficits, Normal Mood/Affect, back padder II-XII Norm as Tested, Disoriented Skin: Normal Color, Warm/Dry Lymphatic: No Adenopathy Results Results/Procedures Labs Laboratory Tests 01/06/22 14:15 01/07/22 00:07 01/07/22 05:00 Patient resulted labs reviewed. Assessment/Plan Admission Diagnosis Assessment: Severe and symptomatic anemia 5.6 hemoglobin requiring transfusions Recent non-STEMI on Plavix and aspirin holding currently History of severe COPD Ischemic bowel requiring resection 2020 Confusion from dementia Chronically ill resides in a care home Former smoker Plan: Move to fourth floor Dr. Eduardo appreciated Monitor hemoglobin Admission Status: Inpatient Order (span 2 midnights) Reason for Inpatient Admission: Severe anemia Diagnosis/Problems Diagnosis/Problems (1) Symptomatic anemia Status: Acute (2) GI bleed Status: Acute Clinical Quality Measures DVT/VTE Risk/Contraindication: Contraindications-Pharm: Other *list below* Other: KATYA Kim DO Jan 07, 2022 05:58
[2022-01-07] MEDS: RT-ALBUTEROL/IPRATROPIUM 3 ML (DUONEB) VIAL INH SCH ×2 (07:39→19:50)
[2022-01-07] MEDS: SENNOSIDES 8.6 MG (SENOKOT) TAB PO SCH ×2 (08:07→22:47)
[2022-01-07] MEDS: DOCUSATE SODIUM 100 MG (COLACE) CAP PO SCH ×2 (08:07→22:47)
--- NOTE | 2022-01-07 11:41 | Cardiology Progress Note ---
Subjective Date Seen by Provider: Jan 07, 2022 Time Seen by Provider: 11:40 Subjective/Events-last exam Patient was seen at bedside, laying down comfortably, feeling better. No new complaint. Review of Systems General: No Chills, No Night Sweats, No Fatigue, No Malaise, No Appetite, No Ot her HEENT: No Head Aches, No Visual Changes, No Eye Pain, No Ear Pain, No Dysp hasia, No Sinus Congestion, No Post Nasal Drip, No Sore Throat, No Other Pulmonary: No Dyspnea, No Cough, No Pleuritic Chest Pain, No Other Cardiovascular: No: Chest Pain, Palpitations, Orthopnea, Paroxysmal Noc. Dyspnea, Edema, Lt Headedness, Other Focused Exam Lactate Level 01/06/22 20:00: Lactic Acid Level 2.81*H 01/06/22 22:01: Lactic Acid Level 2.84*H 01/07/22 05:00: Lactic Acid Level 2.37*H Objective-Cardiology Exam Last Set of Vital Signs Vital Signs 01/06/22 01/07/22 01/07/22 16:16 07:42 08:00 Temp 36.7 Pulse 85 Resp 22 B/P (MAP) 117/72 (87) Pulse Ox 95 O2 Delivery Room Air FiO2 21 I&O l Intake and Output 01/07/22 00:00 Intake Total 250 ml Output Total 1575 ml Balance -1325 ml Intake Oral 250 ml Output Urine Total 1575 ml Daily Weight Change No General: Alert, Oriented X3, Cooperative HEENT: Atraumatic, PERRLA Neck: Supple, No JVD, No Thyromegaly Lungs: Clear to Auscultation, Normal Air Movement Heart: Regular Rate, Normal S1, Normal S2, No Murmurs Abdomen: Normal Bowel Sounds, Soft, No Tenderness, No Hepatosplenomegaly, No Masses Extremities: No Clubbing, No Cyanosis, No Edema, Normal Pulses, No Tenderness/Swelling Skin: No Rashes, No Breakdown, No Significant Lesion Neuro: Normal Gait, Normal Speech, Strength at 5/5 X4 Ext, Normal Tone, Sensation Intact Psych/Mental Status: Mental Status NL, Mood NL Results Lab Laboratory Tests 01/06/22 14:15 01/07/22 00:07 01/07/22 05:00 A/P-Cardiology Admission Diagnosis Anemia Coronary artery disease Congestive heart failure, chronic compensated left ventricular diastolic dysfunction Hyperlipidemia Assessment/Plan Severe anemia, excessive bruising, feeling better, received blood transfusion, underwent endoscopy, reported still pending, continue to monitor Coronary artery disease, history of non-ST elevation myocardial infarction occurred in October 2021 that was treated conservatively, it was reported that she had significant disease in the right coronary artery that was treated conservatively. Patient had stenting done in June 2021 after an acute myocardial infarction at [facility]. She has been maintained on aspirin and Plavix. Patient did not receive a full year of treatment but exceeded 6 months margin of treatment. Due to the active bleeding and the severe anemia. I recommend discontinuation of aspirin and Plavix. Will consider the use of aspirin 81 mg for halfway treatment if patient can tolerate it. Congestive heart failure, chronic compensated left ventricular diastolic dysfunction. Receiving Lasix twice daily. Peripheral arterial disease, it was reported that she had total occlusion of the right superficial femoral artery, patient was not aware of any peripheral arterial disease prior to her hospitalization at [facility]. Chronic kidney disease stage III, continue to monitor renal function Hypertension, monitor blood pressure. Hyperlipidemia, maintained on statin, monitor lipids BMI 31. We discussed weight loss. Tobaccoism, patient has stopped smoking in June 2021, encouraged to continue with smoking cessation Patient is DNR, she is currently in a [place] [facility] resident. INGRID CHRIS MD Jan 07, 2022 11:41
--- NOTE | 2022-01-07 13:06 | Wound Care Assessment ---
Wound Care Assessment Date Seen by Provider: Jan 07, 2022 Time Seen by Provider: 12:58 Chief Complaint 1. Abdominal wound 2. Stage 2 pressure ulcers bilateral buttock 3. Unstageable ulcer right heel HPI This 71 year old female was admitted to the hospital with anemia. She is quite confused today and cannot give reliable history. From what I can glean from past records she has a h/o necrotic bowel requiring resection. She has an abdominal wound at the base of a midline scar consistent with this history. This wound is 1.8 cm deep with copious purulent drainage. Culture will be obtained but she is currently on Meropenem and Cefepime. I am unable to fully visualize the bed of this wound to determine if fascia is exposed. However, it does tunnel 5.8cm at 1 o'clock which is concerning. She is quite filthy with stool over her entire backside down to her ankles. She was found to have stage 2 pressure ulcers on bilateral buttocks upon cleaning (without signs of infection). She does also have a large stable eschar on her right heel (from pressure). Stage 1 pressure changes on her left. She has bruising and small skin tears over many surfaces of her body. She appears quite frail and very confused with a h/o dementia in her records. She does have reported diabetes as well. I am unable to ascertain the level of diabetic control. She does appear to have protein energy malnutrition (albumin 2.7) but is NPO currently with surgical evaluation pending. Past Medical History: Admits Diabetes Type II, Admits Heart Disease COPD, Dementia, GIB, CHF, Ischemic bowel Smoking Status: Former Smoker Review of Systems Other systems I am unable to obtain a ROS due to mental status Exam Vital Signs Date Time Temp Pulse Resp B/P (MAP) Pulse Ox O2 Delivery O2 Flow Rate FiO2 01/07/22 12:35 74 01/07/22 08:00 95 Room Air 01/07/22 07:42 36.7 22 117/72 (87) 01/06/22 16:16 21 Capillary Refill : General Appearance: no apparent distress, thin Neck: full range of motion Cardiovascular: no edema Respiratory: no respiratory distress, no accessory muscle use Extremities: no pedal edema Neurologic/Psychiatric: other (Oriented to person only. Very confused) Skin: ecchymosis, other (numerous abrasions in several locations ) Wound assessments: 1. Stage 2 pressure ulcer right buttock: The epithelialization is none, there is no tunneling or undermining, drainage is large and serous, granulation is large and pink, necrotic is small and slough, the wound margins are flat. 2x2.5x0.1 cm 2. Stage 2 pressure ulcer left buttock: The epithelialization is none, there is no tunneling or undermining, drainage is large and serous, granulation is large and pink, necrotic is small and slough, the wound margins are flat. 2x2x0.1cm 3. R. Heel: The epithelialization is none, there is no tunneling or undermining, there is no drainage, granulation is none, necrotic is large and eschar, the wound margins are flat 4. Inferior abdomen: The epithelialization is none, there is tunneling at 1 o'clock 5.8cm, drainage is large and purulent (cream), granulation is none, necrotic is large and slough, wound margins show epibole. I am unable to visualize the base to evaluate for deep structures. 1x1.5x1.8cm Results Laboratory Tests 01/06/22 14:15: White Blood Count 13.2H, Red Blood Count 1.84L, Hemoglobin 5.6*L, Hematocrit 18*L, Mean Corpuscular Volume 100H, Mean Corpuscular Hemoglobin 30, Mean Corpuscular Hemoglobin Concent 31L, Red Cell Distribution Width 24.6H, Platelet Count 115L, Mean Platelet Volume 12.0, Immature Granulocyte % (Auto) 1, Neutrophils (%) (Auto) 83H, Lymphocytes (%) (Auto) 10L, Monocytes (%) (Auto) 6, Eosinophils (%) (Auto) 0, Basophils (%) (Auto) 0, Neutrophils # (Auto) 11.0H, Lymphocytes # (Auto) 1.3, Monocytes # (Auto) 0.8, Eosinophils # (Auto) 0.0, Basophils # (Auto) 0.0, Immature Granulocyte # (Auto) 0.1, Percent Immature Platelet Fraction 8.8H, Prothrombin Time 17.7H, INR Comment 1.4, Sodium Level 135, Potassium Level 3.3L, Chloride Level 97L, Carbon Dioxide Level 24, Anion Gap 14, Blood Urea Nitrogen 32H, Creatinine 1.21, Estimat Glomerular Filtration Rate 48, BUN/Creatinine Ratio 26, Glucose Level 192H, Calcium Level 8.3L, Corrected Calcium 9.0, Total Bilirubin 0.8, Aspartate Amino Transf (AST/SGOT) 17, Alanine Aminotransferase (ALT/SGPT) 22, Alkaline Phosphatase 123, B-Type Natriuretic Peptide 1320.4H, Total Protein 6.1L, Albumin 3.1L 01/06/22 15:30: Lactic Acid Level 5.48*H 01/06/22 16:45: SARS-CoV-2 RNA (RT-PCR) Not Detected 01/06/22 17:50: Lactic Acid Level 3.70*H 01/06/22 20:00: Lactic Acid Level 2.81*H 01/06/22 20:06: Glucometer 211H 01/06/22 22:01: Lactic Acid Level 2.84*H 01/07/22 00:07: Hemoglobin 8.0#L, Hematocrit 25L 01/07/22 05:00: White Blood Count 10.8, Red Blood Count 2.43L, Hemoglobin 7.5L, Hematocrit 22L, Mean Corpuscular Volume 92, Mean Corpuscular Hemoglobin 31, Mean Corpuscular Hemoglobin Concent 34, Red Cell Distribution Width 22.6H, Platelet Count 91L, Mean Platelet Volume 11.4, Immature Granulocyte % (Auto) 1, Neutrophils (%) (Auto) 83H, Lymphocytes (%) (Auto) 12, Monocytes (%) (Auto) 4, Eosinophils (%) (Auto) 0, Basophils (%) (Auto) 0, Neutrophils # (Auto) 8.9H, Lymphocytes # (Auto) 1.3, Monocytes # (Auto) 0.5, Eosinophils # (Auto) 0.0, Basophils # (Auto) 0.0, Immature Granulocyte # (Auto) 0.1, Sodium Level 137, Potassium Level 3.8, Chloride Level 98, Carbon Dioxide Level 25, Anion Gap 14, Blood Urea Nitrogen 31H, Creatinine 1.10, Estimat Glomerular Filtration Rate 54, BUN/Creatinine Ratio 28, Glucose Level 168H, Lactic Acid Level 2.37*H, Calcium Level 8.0L, Corrected Calcium 9.0, Total Bilirubin 1.2H, Aspartate Amino Transf (AST/SGOT) 15, Alanine Aminotransferase (ALT/SGPT) 19, Alkaline Phosphatase 102, Total Protein 5.5L, Albumin 2.7L 01/07/22 10:35: Glucometer 161H Assessment/Plan/Dx Assessment: 1. Stage 2 pressure ulcers to bilateral buttock 2. Unstageable pressure ulcer R. heel 3. Abdominal wound (infected) Plan: 1. Cleanse buttock ulcers every other day with wound cleanser or saline. Apply duoderm qod. Frequent repositioning for off loading. 2. Betadyne twice daily to air dry for any stable eschar. Primo boots to bilateral heels 3. Wound culture abdominal wound 4. Agree with antibiotics 5. Pack wound daily and prn with iodoform making certain to pack tunnel at 1 o'clock 6. This wound is concerning in light of recent surgery. Surgery has been consulted. Imagining to evaluate for underlying abscess would be reasonable in light of infection and tunneling. I will discuss with primary and surgery. AMIE JEFFERS MD Jan 07, 2022 13:05
[2022-01-07] MEDS: PANTOPRAZOLE 40 MG (PROTONIX) TAB PO SCH ×2 (13:29→22:47)
[2022-01-07] MEDS ORDERED: POTA-51 PO (15:36)
[2022-01-07] MEDS ORDERED: FERR-74 PO (15:36)
[2022-01-07] MEDS ORDERED: MAGN400T39 PO (15:36)
[2022-01-07] MEDS ORDERED: APIX5TAB PO (15:36)
[2022-01-07] MEDS ORDERED: OXYC5TAB PO (15:36)
[2022-01-07] MEDS ORDERED: INSU100V6 SQ (15:36)
[2022-01-07] MEDS ORDERED: FISH1CAP6 PO (15:36)
[2022-01-07] MEDS ORDERED: PRD10T PO (15:36)
[2022-01-07] MEDS ORDERED: BUME1TAB8 PO (15:36)
[2022-01-07] MEDS ORDERED: INSU100V SQ (15:36)
[2022-01-07] MEDS ORDERED: IPRA3AMP31 IH (15:36)
[2022-01-08] VITALS (7 sets, daily range): BP systolic 91–130; BP diastolic 43–59
[2022-01-08] MEDS: inSUlin ASPART (NovoLOG) 1 UNIT/0.01 ML (CHARGE PER UNIT) SC SCH ×4 (05:32→20:47)
[2022-01-08] MEDS: MEROPENEM 500 MG in NS (IVPB) 100 ML IV SCH ×4 (05:33→20:47)
[2022-01-08 05:50] LABS: BASOPHILS % (AUTO) 0 % (0-10); EOSINOPHILS # (AUTO) 0.3 10^3/uL (0.0-0.3); EOSINOPHILS % (AUTO) 2 % (0-10); HEMATOCRIT 23 % (35-52); HEMOGLOBIN 7.6 g/dL (11.5-16.0); LYMPHOCYTES # (AUTO) 1.9 10^3/uL (1.0-4.0); LYMPHOCYTES % (AUTO) 18 % (12-44); MEAN CORPUSCULAR HEMOGLOBIN 32 pg (25-34); MEAN CORPUSCULAR HGB CONC 34 g/dL (32-36); MEAN CORPUSCULAR VOLUME 94 fL (80-99); MEAN PLATELET VOLUME 11.4 fL (9.0-12.2); MONOCYTES # (AUTO) 0.5 10^3/uL (0.0-1.0); MONOCYTES % (AUTO) 4 % (0-12); NEUTROPHILS # (AUTO) 7.7 10^3/uL (1.8-7.8); NEUTROPHILS % (AUTO) 74 % (42-75); PLATELET COUNT 88 10^3/uL (130-400); WHITE BLOOD COUNT 10.4 10^3/uL (4.3-11.0)
[2022-01-08 06:08] LABS: ALBUMIN 2.4 GM/DL (3.2-4.5); POTASSIUM 2.6 MMOL/L (3.6-5.0)
[2022-01-08 06:09] LABS: CALCIUM 7.7 MG/DL (8.5-10.1)
[2022-01-08 06:11] LABS: TOTAL PROTEIN 4.8 GM/DL (6.4-8.2)
[2022-01-08 06:12] LABS: BILIRUBIN,TOTAL 1.1 MG/DL (0.1-1.0)
[2022-01-08 06:14] LABS: CREATININE SERUM 0.87 MG/DL (0.60-1.30)
[2022-01-08] MEDS ORDERED: MAGNESIUM 1 GM/100 ML IVPB 100 ML IV ONE (06:30)
--- NOTE | 2022-01-08 06:30 | Progress Note - Hospitalist ---
Subjective HPI/CC On Admission Date Seen by Provider: Jan 08, 2022 Time Seen by Provider: 11:30 CC: Severe symptomatic anemia HPI: This is a 71 yr old WF known to me from prior admissions. 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 She presented to the ER with symptomatic anemia. She was found to have a hemoglobin of 5.6 requiring a transfusion. She currently has wounds and wound care has been consulted. She is currently confused. PICC line will be placed. Protonix will be started for empiric coverage of GI bleeding. Dr. Eduardo may need to do an EGD. We will move her down to 4th floor. She remains a DNR. Subjective/Events-last exam Patient doing a lot better Confusion persists at the bedside Hemoglobin noted Patient wants to go home but she is confused about that but I redirected her Checked meds and labs No indication for any urgent scope Holding all anticoagulants Review of Systems General: Fatigue, Malaise Pulmonary: Dyspnea Neurological: Confusion Focused Exam Lactate Level 01/06/22 20:00: Lactic Acid Level 2.81*H 01/06/22 22:01: Lactic Acid Level 2.84*H 01/07/22 05:00: Lactic Acid Level 2.37*H Objective Exam Vital Signs Vital Signs Date Time Temp Pulse Resp B/P (MAP) Pulse Ox O2 Delivery O2 Flow Rate FiO2 01/09/22 04:00 36.6 86 20 112/58 (76) 93 Room Air 01/06/22 16:16 21 Capillary Refill : General Appearance: No Apparent Distress, WD/WN, Chronically ill Respiratory: Lungs Clear, Normal Breath Sounds, Decreased Breath Sounds Cardiovascular: Regular Rate, Rhythm Neurologic/Psychiatric: Alert, Oriented x3, Disoriented Results/Procedures Lab Patient resulted labs reviewed. Assessment/Plan Assessment and Plan Assess & Plan/Chief Complaint Assessment: Severe and symptomatic anemia 5.6 hemoglobin requiring transfusions Recent non-STEMI on Plavix and aspirin holding currently History of severe COPD Ischemic bowel requiring resection 2020 Confusion from dementia Chronically ill [facility] in a jail Former smoker Dementia and confusion Plan: Move to fourth floor Dr. Eduardo appreciated Monitor hemoglobin 01/08/2022: Monitor hemoglobin Monitor confusion Diagnosis/Problems Diagnosis/Problems (1) Symptomatic anemia Status: Acute (2) GI bleed Status: Acute Clinical Quality Measures DVT/VTE Risk/Contraindication: Contraindications-Pharm: Other *list below* Other: DAVEY Kim DO Jan 08, 2022 06:30
[2022-01-08] MEDS ORDERED: NS IV 500 ML 500 ML ONE (06:50)
[2022-01-08] MEDS: RT-ALBUTEROL/IPRATROPIUM 3 ML (DUONEB) VIAL INH SCH ×2 (07:39→20:59)
[2022-01-08] MEDS ORDERED: POTASSIUM CL 10MEQ/50ML IVPB 50 ML IV SCH (07:45)
[2022-01-08] MEDS ORDERED: KCL 20 MEQ TAB (K-DUR) PO ONE (07:45)
[2022-01-08] MEDS: POTASSIUM CL 10MEQ/50ML IVPB 50 ML IV SCH ×4 (08:37→11:33)
[2022-01-08] MEDS: DOCUSATE SODIUM 100 MG (COLACE) CAP PO SCH ×2 (08:37→19:47)
[2022-01-08] MEDS: PANTOPRAZOLE 40 MG (PROTONIX) TAB PO SCH ×2 (08:37→20:46)
[2022-01-08] MEDS: SENNOSIDES 8.6 MG (SENOKOT) TAB PO SCH ×2 (08:38→19:47)
[2022-01-08] MEDS: HYDROcodone/APAP 5 MG/325 MG (LORTAB) TAB PO PRN (09:57)
[2022-01-08] MEDS ORDERED: ZIPRASIDONE 20 MG INJ (GEODON) VIAL IM PRN (11:30)
[2022-01-08] MEDS ORDERED: WATER (STERILE) FOR INJ 10 ML BTL INJ SCH (11:30)
[2022-01-08] MEDS ORDERED: LORazepam INJ 2 MG/ML (ATIVAN) VIAL IVP PRN (11:30)
--- NOTE | 2022-01-08 12:14 | Cardiology Progress Note ---
Subjective Date Seen by Provider: Jan 08, 2022 Time Seen by Provider: 12:07 Subjective/Events-last exam Patient is laying down in bed, feeling better. No new complaints. Review of Systems General: No Chills, No Night Sweats, No Fatigue, No Malaise, No Appetite, No Other HEENT: No Head Aches, No Visual Changes, No Eye Pain, No Ear Pain, No Dysphasia, No Sinus Congestion, No Post Nasal Drip, No Sore Throat, No Other Pulmonary: No Dyspnea, No Cough, No Pleuritic Chest Pain, No Other Cardiovascular: No: Chest Pain, Palpitations, Orthopnea, Paroxysmal Noc. Dyspnea, Edema, Lt Headedness, Other Focused Exam Lactate Level 01/06/22 20:00: Lactic Acid Level 2.81*H 01/06/22 22:01: Lactic Acid Level 2.84*H 01/07/22 05:00: Lactic Acid Level 2.37*H Objective-Cardiology Exam Last Set of Vital Signs Vital Signs 01/06/22 01/08/22 16:16 11:17 Temp 36.3 Pulse 79 Resp 20 B/P (MAP) 103/52 (69) Pulse Ox 96 O2 Delivery Room Air FiO2 21 I&O Intake and Output 01/08/22 00:00 Intake Total 575 ml Output Total 1550 ml Balance -975 ml Intake Oral 575 ml Output Urine Total 1550 ml # Bowel Movements 1 General: Alert, Oriented X3, Cooperative HEENT: Atraumatic, PERRLA Neck: Supple, No JVD, No Thyromegaly Lungs: Clear to Auscultation, Normal Air Movement Heart: Regular Rate, Normal S1, Normal S2, No Murmurs Abdomen: Normal Bowel Sounds, Soft, No Tenderness, No Hepatosplenomegaly, No Masses Extremities: No Clubbing, No Cyanosis, No Edema, Normal Pulses, No Tenderness/Swelling Skin: No Rashes, No Breakdown, No Significant Lesion Neuro: Normal Gait, Normal Speech, Strength at 5/5 X4 Ext, Normal Tone, Sensation Intact Psych/Mental Status: Mental Status NL, Mood NL Results Lab Laboratory Tests 01/08/22 05:35 A/P-Cardiology Admission Diagnosis Anemia Coronary artery disease Congestive heart failure, chronic compensated left ventricular diastolic dysfunction Hyperlipidemia Assessment/Plan Severe anemia, excessive bruising, feeling better, received blood transfusion, H&H are better, work-up is in progress with medicine and surgery Coronary artery disease, history of non-ST elevation myocardial infarction occurred in October 2021 that was treated conservatively, it was reported that she had significant disease in the right coronary artery that was treated conservatively. Patient had stenting done in June 2021 after an acute myocardial infarction at [facility]. She has been maintained on aspirin and Plavix. Patient did not receive a full year of treatment but exceeded 6 months margin of treatment. Due to the active bleeding and the severe anemia. I recommend discontinuation of aspirin and Plavix. 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 Congestive heart failure, chronic compensated left ventricular diastolic dysfunction. Receiving Lasix twice daily. Peripheral arterial disease, it was reported that she had total occlusion of the right superficial femoral artery, patient was not aware of any peripheral arterial disease prior to her hospitalization at [facility]. Chronic kidney disease stage III, continue to monitor renal function Hypertension, monitor blood pressure. Hyperlipidemia, maintained on statin, monitor lipids BMI 31. We discussed weight loss. Tobaccoism, patient has stopped smoking in June 2021, encouraged to continue with smoking cessation Patient is DNR, she is currently in a [facility] resident. INGRID CHRIS MD Jan 08, 2022 12:14
--- NOTE | 2022-01-08 12:34 | Progress Note ---
Subjective Date Seen by a Provider: Jan 08, 2022 Time Seen by a Provider: 10:00 Subjective/Events-last exam Patient seen with Dr. Perez. Patient reports doing ok. Does appear to be confused a little as she is not for sure why she is here and could not recall where she came from. She denies any N/V, abdominal pain, or any other symptoms. Tolerating diet. Focused Exam Lactate Level 01/06/22 20:00: Lactic Acid Level 2.81*H 01/06/22 22:01: Lactic Acid Level 2.84*H 01/07/22 05:00: Lactic Acid Level 2.37*H Objective Exam Vital Signs Date Time Temp Pulse Resp B/P (MAP) Pulse Ox O2 Delivery O2 Flow Rate FiO2 01/08/22 11:17 36.3 79 20 103/52 (69) 96 Room Air 01/08/22 09:00 Room Air 01/08/22 07:39 94 Room Air 01/08/22 07:26 36.2 64 22 110/51 (70) 97 Room Air 01/08/22 07:00 59 01/08/22 04:00 36.6 61 21 107/49 (68) 95 Room Air 01/08/22 01:00 80 01/08/22 00:00 36.2 64 19 106/50 (68) 95 Room Air 01/07/22 21:00 Room Air 01/07/22 19:50 95 Room Air 01/07/22 19:38 36.3 54 18 104/54 (71) 96 Room Air 01/07/22 19:00 85 01/07/22 16:33 36.5 82 16 128/60 (82) 99 Room Air 01/07/22 15:00 Room Air 01/07/22 14:34 36.8 68 20 122/56 (78) 99 Room Air 01/07/22 12:35 74 I & O 01/08/22 07:00 Intake Total 625 ml Output Total 1400 ml Balance -775 ml Capillary Refill : General Appearance: No Apparent Distress, WD/WN Neck: Normal Inspection, Supple Respiratory: No Accessory Muscle Use, No Respiratory Distress Cardiovascular: Regular Rate, Rhythm, No Edema Gastrointestinal: normal bowel sounds, non tender, soft, other (Dressing over lower abdomen with small amount of yellow tinged drainage on dressing) Extremity: Normal Range of Motion, No Calf Tenderness Neurologic/Psychiatric: Alert Skin: Normal Color, Warm/Dry Results Lab Laboratory Tests 01/07/22 16:01: Glucometer 121H 01/07/22 20:35: Glucometer 131H 01/08/22 05:27: Glucometer 88 01/08/22 05:35: White Blood Count 10.4, Red Blood Count 2.41L, Hemoglobin 7.6L, Hematocrit 23L, Mean Corpuscular Volume 94, Mean Corpuscular Hemoglobin 32, Mean Corpuscular Hemoglobin Concent 34, Red Cell Distribution Width 22.7H, Platelet Count 88L, Mean Platelet Volume 11.4, Immature Granulocyte % (Auto) 1, Neutrophils (%) (Auto) 74, Lymphocytes (%) (Auto) 18, Monocytes (%) (Auto) 4, Eosinophils (%) (Auto) 2, Basophils (%) (Auto) 0, Neutrophils # (Auto) 7.7, Lymphocytes # (Auto) 1.9, Monocytes # (Auto) 0.5, Eosinophils # (Auto) 0.3, Basophils # (Auto) 0.0, Immature Granulocyte # (Auto) 0.1, Sodium Level 137, Potassium Level 2.6L, Chloride Level 101, Carbon Dioxide Level 26, Anion Gap 10, Blood Urea Nitrogen 20H, Creatinine 0.87, Estimat Glomerular Filtration Rate 72, BUN/Creatinine Ratio 23, Glucose Level 91, Calcium Level 7.7L, Corrected Calcium 9.0, Magnesium Level 1.6, Total Bilirubin 1.1H, Aspartate Amino Transf (AST/SGOT) 19, Alanine Aminotransferase (ALT/SGPT) 16, Alkaline Phosphatase 87, Total Protein 4.8L, Albumin 2.4L 01/08/22 11:23: Glucometer 90 Microbiology 01/07/22 Gram Stain - Final, Resulted 01/07/22 Wound Culture - Preliminary, Resulted Gram Negative Cheikh Gram Negative Cheikh#2 01/06/22 Blood Culture - Preliminary, Resulted No growth Assessment/Plan Assessment/Plan Assess & Plan/Chief Complaint A 71 year old female with Anemia and midline suture granuloma VSS Hgb 7.6 Continue with IV fluids PUD prophylaxis PRBCs for resuscitation May need EGD on this admission Clinical Quality Measures DVT/VTE Risk/Contraindication: Contraindications-Pharm: Other *list below* Other: ALTAGRACIA Teresa PRACTICE LEAD Jan 08, 2022 12:34
--- NOTE | 2022-01-08 13:34 | Physical Therapy Evaluation ---
PT Evaluation-General Medical Diagnosis Admission Date Jan 06, 2022 at 15:16 Medical Diagnosis: anemia Onset Date: Jan 06, 2022 Therapy Diagnosis Therapy Diagnosis: impaired mobility, strength Precautions Precautions/Isolations: Fall Prevention, Standard Precautions Referral Physician: Katya Hernandez DO Reason for Referral: Evaluation/Treatment Medical History Pertinent Medical History: CAD, COPD, DM, Heart Failure, HTN, Hypothroidism, PVD, Smoking Additional Medical History Past Medical History Surgeries: Abdominal, Gallbladder COPD Coronary Artery Disease, Hypertension Dementia Bladder Infection Gastrointestinal Bleed, Obstructive Bowel, Gall Bladder Disease Arthritis Hypothyroidsim, Diabetes, Non-Insulin dep Anxiety Blood Disorders: No Reviewed History: Yes Social History Home: [facility] Prior Prior Level of Function SCALE: Activities may be completed with or without assistive devices. 8-Kitmpyddme-gpswoab completes the activity by him/herself with no assistance from a helper. 5-Set-up or Clean-up Assistance-helper sets up or cleans up; patient completes activity. [place] assists only prior to or following the activity. 4-Supervision or Touching Assistance-helper provides verbal cues and/or touching/steadying and/or contact guard assistance as patient completes activity. Assistance may be provided throughout the activity or intermittently. 3-Partial/Moderate Assistance-helper does LESS THAN HALF the effort. [place] lifts, holds or supports trunk or limbs, but provides less than half the effort. 2-Substantial/Maximal Assistance-helper does MORE THAN HALF the effort. [place] lifts or holds trunk or limbs and provides more than half the effort. 7-Qsmwurbhm-zogxwu does ALL the effort. Patient does none of the effort to co mplete the activity. Or, the assistance of 2 or more helpers is required for the patient to complete the activity. If activity was not attempted, code reason: 7-Patient Refused. 9-Not Applicable-not attempted and the patient did not perform the activity before the current illness, exacerbation or injury. 10-Not Attempted due to Environmental Limitations-(lack of equipment, weather restraints, etc.). 88-Not Attempted due to Medical Conditions or Safety Concerns. Bed Mobility: 3 Transfers (B,C,W/C): 3 in room states she hasn't been ambulating, needs assist getting out of bed PT Evaluation-Current Subjective Patient in bed pre tx, agrees to PT, has no complaints of pain, would like to get out of bed and into recliner. Pt/Family Goals none stated Objective Patient Orientation: Person, Confused ROM/Strength ROM Lower Extremities WNL Strength Lower Extremities LLE (hip flexion 3-/5, knee flexion 4/5, knee extension 4/5, dorsiflexion 4/5), RLE (hip flexion 3-/5, knee flexion 4-/5, knee extension 4-/5, dorsiflexion 3/5) Sensory Hearing: Functional Sensation Right Lower Extremit: Impaired Sensation Left Lower Extremity: Impaired Transfers Roll Left to Right (QC): 4 Sit to Lying (QC): 3 Lying to Sitting/Side of Bed(Q: 3 Patient requires min assist to sit to the side of the bed. After sitting, she refused to try to stand, would not stand with encouragement, she just had increasing agitation. Lays back down with min assist. Balance Sitting Static: Fair Sitting Dynamic: Fair Assessment/Needs Patient in bed post tx with nurse call, phone, tray, all needs met, bed alarm on. Patient has impaired mobility, strength. She is very confused and can be agitated. Last time patient was here she refused therapy most of the time. Rehab Potential: Poor PT Snf Goals Dance Artist Goals PT Dance Artist Goals Time Frame: Jan 15, 2022 Roll Left & Right (QC): 4 Sit to Lying (QC): 4 Lying-Sitting on Side/Bed(QC): 4 Sit to Stand (QC): 4 Chair/Tzy-yj-Oqwsi Xfer(QC): 4 PT Plan Problem List Problem List: Activity Tolerance, Functional Strength, Safety, Balance, Gait, Transfer, Bed Mobility, ROM Treatment/Plan Treatment Plan: Continue Plan of Care Treatment Plan: Bed Mobility, Education, Functional Activity Virgen, Functional Strength, Gait, Safety, Therapeutic Exercise, Transfers Treatment Duration: Jan 15, 2022 Frequency: 6 times per week Estimated Hrs Per Day: .25 hour per day Patient and/or Family Agrees t: Yes Safety Risks/Education Patient Education: Correct Positioning, Safety Issues Teaching Recipient: Patient Teaching Methods: Demonstration, Discussion Response to Teaching: Reinforcement Needed Discharge Recommendations Plan Patient will perform bed mobility and transfer training, balance and endurance training, functional strengthening, gait training, and education, to improve functional mobility and independence at home. Therapy Discharge Recommendati: 24 Hour Supervision Time/GCodes Time In: 1307 Time Out: 1317 Total Billed Treatment Time: 10 Total Billed Treatment 1 visit ELVIS COOMBS PT Jan 08, 2022 13:34
--- NOTE | 2022-01-08 20:47 | CONSULTATION REPORT ---
DATE OF SERVICE: 01/08/2022 ATTENDING PRIMARY CARE PHYSICIAN: Dr. Rendon. ADMITTING PHYSICIAN: Dr. Hernandez. HISTORY OF PRESENT ILLNESS: The patient is a 71-year-old female known to us. She presented to [facility] on 11/03/2021 and had not been eating much or drinking much fluids. She also did have some mild nausea; however, no vomiting. She is also oxygen dependent for severe COPD and does continue to smoke. A CT scan was performed, which did show pleural effusion as well as pulmonary edema. CT scan also did show diffuse colitis as well. She was placed on IV fluids as well as antibiotics; however, continued to have worsening abdominal pain and increased lactic acid, concerning for bowel ischemia and on 10/21/2021, she underwent an exploratory laparotomy and was found to have an ischemic right colon at the level of the proximal transverse colon and was also found to have ischemic distal ileum encompassing approximately 100 cm. No perforation was identified. She underwent a right hemicolectomy as well as resection of the distal small bowel as well as an ileocolonic anastomosis. She presented with weakness and increasing shortness of breath as well as exacerbation of COPD. She has been seen by wound care. She has an opening of the lower pole of the midline laparotomy incision, which tunnels superiorly. She states that this closed over and then healed; however, then reoccurs likely consistent with a suture granuloma. There is no purulent drainage. PAST MEDICAL HISTORY: Ischemic colitis, hypercholesterolemia, hypertension, peripheral vascular disease, COPD, coronary artery disease, degenerative joint disease, diabetes, hypothyroid. PAST SURGICAL HISTORY: Bilateral lower extremity angioplasty and stent placement, laparoscopic cholecystectomy, left total knee arthroplasty, bladder suspension, pituitary tumor excision, bilateral knee arthroscopy, exploratory laparotomy right hemicolectomy and distal small bowel resection on 10/21/2021. ALLERGIES: PENICILLIN, CEPHALEXIN, CIPROFLOXACIN. MEDICATIONS: Alprazolam, amitriptyline, aspirin, atorvastatin, Symbicort, Plavix, dicyclomine, empagliflozin, gabapentin, hydrocodone, NovoLog insulin, regular insulin, levothyroxine, Protonix, prednisone, ropinirole, tizanidine, torsemide. SOCIAL HISTORY: Positive smoke 50 pack years. Negative alcohol. FAMILY HISTORY: Noncontributory. PHYSICAL EXAM: VITAL SIGNS: Temperature 36.3, blood pressure 110/51, pulse 76, respirations 20, pulse ox 96% on room air. REVIEW OF SYSTEMS: Well-nourished female currently in no acute distress. She is not experiencing any shortness of breath or difficulty breathing at rest. No cough or sputum production. No nausea, vomiting, no diarrhea or constipation, no red blood per rectum, no dark tarry stools. No fever, chills, no recent inadvertent weight loss. All other review of systems negative. PHYSICAL EXAMINATION: CHEST: Distant breath sounds and scattered wheezes bilaterally. HEART: Regular, no murmurs. EXTREMITIES: No lower extremity edema, negative Homans sign. HEENT: No scleral icterus. NECK: No cervical lymphadenopathy. ABDOMEN: Soft, along the midline laparotomy incision in the lower pole as an opening, which does track superiorly. There is some serosanguineous drainage. No purulent drainage. This is likely a suture granuloma. There are no hernias. SKIN: Warm, dry. LABORATORY DATA: WBC 10.4, hemoglobin 7.6, hematocrit 23, platelets 88. BUN 20, creatinine 0.87. ASSESSMENT AND PLAN: A 71-year-old female with a suture granuloma and recurring drainage and open wound of the previous midline laparotomy incision. We will proceed with local anesthesia as well as IV pain medication and proceed with exploration of the wound in hopes of identifying the suture granuloma and removal. We will also continue with current IV antibiotic regimen. Job ID: [id number] DocumentID: [id number] Dictated Date: 01/08/2022 16:42:20 Subsea Engineer Date: 01/08/2022 18:59:43 Dictated By: MONICA FERNANDEZ MD
[2022-01-09 04:00] VITALS: BP 112/58
[2022-01-09] MEDS: MEROPENEM 500 MG in NS (IVPB) 100 ML IV SCH ×4 (04:36→21:06)
[2022-01-09] MEDS: inSUlin ASPART (NovoLOG) 1 UNIT/0.01 ML (CHARGE PER UNIT) SC SCH ×4 (04:45→21:06)
[2022-01-09 06:40] LABS: BASOPHILS % (AUTO) 0 % (0-10); EOSINOPHILS # (AUTO) 0.4 10^3/uL (0.0-0.3); EOSINOPHILS % (AUTO) 4 % (0-10); HEMATOCRIT 25 % (35-52); HEMOGLOBIN 8.1 g/dL (11.5-16.0); LYMPHOCYTES # (AUTO) 1.7 10^3/uL (1.0-4.0); LYMPHOCYTES % (AUTO) 16 % (12-44); MEAN CORPUSCULAR HEMOGLOBIN 31 pg (25-34); MEAN CORPUSCULAR HGB CONC 32 g/dL (32-36); MEAN CORPUSCULAR VOLUME 96 fL (80-99); MEAN PLATELET VOLUME 11.2 fL (9.0-12.2); MONOCYTES # (AUTO) 0.3 10^3/uL (0.0-1.0); MONOCYTES % (AUTO) 3 % (0-12); NEUTROPHILS # (AUTO) 7.8 10^3/uL (1.8-7.8); NEUTROPHILS % (AUTO) 76 % (42-75); PLATELET COUNT 81 10^3/uL (130-400); WHITE BLOOD COUNT 10.2 10^3/uL (4.3-11.0)
[2022-01-09 06:51] LABS: ALBUMIN 2.3 GM/DL (3.2-4.5)
[2022-01-09 06:53] LABS: CALCIUM 7.6 MG/DL (8.5-10.1)
[2022-01-09 06:57] LABS: CREATININE SERUM 0.85 MG/DL (0.60-1.30)
[2022-01-09 07:27] VITALS: BP 112/58
--- NOTE | 2022-01-09 07:43 | Progress Note - Hospitalist ---
Subjective HPI/CC On Admission Date Seen by Provider: Jan 09, 2022 Time Seen by Provider: 10:00 CC: Severe symptomatic anemia HPI: This is a 71 yr old WF known to me from prior admissions. 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 She presented to the ER with symptomatic anemia. She was found to have a hemoglobin of 5.6 requiring a transfusion. She currently has wounds and wound care has been consulted. She is currently confused. PICC line will be placed. Protonix will be started for empiric coverage of GI bleeding. Dr. Eduardo may need to do an EGD. We will move her down to 4th floor. She remains a DNR. Subjective/Events-last exam Patient doing about the same Hemoglobin stable at 8.1 Dr. FERNANDEZ gave her some sedation to remove the suture that was still in place causing a tunnel and now she is still sedated Vitals remained stable No family at the bedside Review of Systems General: Fatigue, Malaise Focused Exam Lactate Level 01/06/22 20:00: Lactic Acid Level 2.81*H 01/06/22 22:01: Lactic Acid Level 2.84*H 01/07/22 05:00: Lactic Acid Level 2.37*H Objective Exam Vital Signs Vital Signs Date Time Temp Pulse Resp B/P (MAP) Pulse Ox O2 Delivery O2 Flow Rate FiO2 01/09/22 11:15 37.1 87 20 98/61 (73) 95 Room Air 01/06/22 16:16 21 Capillary Refill : General Appearance: No Apparent Distress, WD/WN, Chronically ill Respiratory: Lungs Clear, Normal Breath Sounds Cardiovascular: Regular Rate, Rhythm Neurologic/Psychiatric: Alert, Oriented x3, No Motor/Sensory Deficits, Normal Mood/Affect Results/Procedures Lab Laboratory Tests 01/09/22 05:49 Patient resulted labs reviewed. Assessment/Plan Assessment and Plan Assess & Plan/Chief Complaint Assessment: Severe and symptomatic anemia 5.6 hemoglobin requiring transfusions Recent non-STEMI on Plavix and aspirin holding currently History of severe COPD Ischemic bowel requiring resection 2020 Confusion from dementia Chronically ill resides in a care home Former smoker Dementia and confusion Plan: Move to fourth floor Dr. Eduardo appreciated Monitor hemoglobin 01/08/2022: Monitor hemoglobin Monitor confusion 01/09/22: Appreciate Dr. KIDO Monitor hemoglobin Diagnosis/Problems Diagnosis/Problems (1) Symptomatic anemia Status: Acute (2) GI bleed Status: Acute Clinical Quality Measures DVT/VTE Risk/Contraindication: Contraindications-Pharm: Other *list below* Other: DAVEY Kim DO Jan 09, 2022 07:43
[2022-01-09] MEDS ORDERED: RT-ALBUTEROL/IPRATROPIUM 3 ML (DUONEB) VIAL INH PRN (07:45)
[2022-01-09 08:00] VITALS: BP 119/67
[2022-01-09] MEDS: SENNOSIDES 8.6 MG (SENOKOT) TAB PO SCH ×2 (09:37→19:33)
[2022-01-09] MEDS: DOCUSATE SODIUM 100 MG (COLACE) CAP PO SCH ×2 (09:37→19:33)
[2022-01-09] MEDS ORDERED: LIDOCAINE/EPI 1%-1:100,000 (XYLOCAINE) 10 ML INJ ONE (09:45)
[2022-01-09] MEDS: HYDROcodone/APAP 5 MG/325 MG (LORTAB) TAB PO PRN (09:54)
[2022-01-09] MEDS: KCL 20 MEQ TAB (K-DUR) PO SCH ×2 (09:57→17:22)
[2022-01-09] MEDS: PANTOPRAZOLE 40 MG (PROTONIX) TAB PO SCH ×2 (09:57→21:06)
--- NOTE | 2022-01-09 10:03 | Cardiology Progress Note ---
Subjective Date Seen by Provider: Jan 09, 2022 Time Seen by Provider: 10:01 Subjective/Events-last exam Patient is laying down in bed, feeling better today. No new complaint. Review of Systems General: No Chills, No Night Sweats; Fatigue, Malaise; No Appetite, No Other HEENT: No Head Aches, No Visual Changes, No Eye Pain, No Ear Pain, No Dysphasia, No Sinus Congestion, No Post Nasal Drip, No Sore Throat, No Other Pulmonary: Dyspnea; No Cough, No Pleuritic Chest Pain, No Other Focused Exam Lactate Level 01/06/22 20:00: Lactic Acid Level 2.81*H 01/06/22 22:01: Lactic Acid Level 2.84*H 01/07/22 05:00: Lactic Acid Level 2.37*H Objective-Cardiology Exam Last Set of Vital Signs Vital Signs 01/06/22 01/09/22 01/09/22 16:16 08:00 08:39 Temp 36.4 Pulse 78 Resp 20 B/P (MAP) 119/67 (84) Pulse Ox 96 O2 Delivery Room Air FiO2 21 I&O Intake and Output 01/09/22 00:00 Intake Total 1485 ml Output Total 950 ml Balance 535 ml Intake Oral 1485 ml Output Urine Total 950 ml # Voids 1 # Bowel Movements 2 General: Alert, Oriented X3, Cooperative HEENT: Atraumatic, PERRLA Neck: Supple, No JVD, No Thyromegaly Lungs: Clear to Auscultation, Normal Air Movement Heart: Regular Rate, Normal S1, Normal S2, No Murmurs Abdomen: Normal Bowel Sounds, Soft, No Tenderness, No Hepatosplenomegaly, No Masses Extremities: No Clubbing, No Cyanosis, No Edema, Normal Pulses, No Tenderness/Swelling Skin: No Rashes, No Breakdown, No Significant Lesion Neuro: Normal Gait, Normal Speech, Strength at 5/5 X4 Ext, Normal Tone, Sensation Intact Psych/Mental Status: Mental Status NL, Mood NL Results Lab Laboratory Tests 01/09/22 05:49 A/P-Cardiology Admission Diagnosis Anemia Coronary artery disease Congestive heart failure, chronic compensated left ventricular diastolic dys function Hyperlipidemia Assessment/Plan Severe anemia, excessive bruising, feeling better, received blood transfusion, H&H are better, work-up is in progress with medicine and surgery Coronary artery disease, History of non-ST elevation myocardial infarction occurred in October 2021 that was treated conservatively, it was reported that she had significant disease in the right coronary artery that was treated conservatively. Patient had stenting done in June 2021 after an acute myocardial infarction at [facility]. She has been maintained on aspirin and Plavix. Patient did not receive a full year of treatment but exceeded 6 months margin of treatment. Due to the active bleeding and the severe anemia. I recommend discontinuation of aspirin and Plavix. Will consider the use of aspirin 81 mg for ferry terminal agent treatment if patient can tolerate it. Congestive heart failure, chronic compensated left ventricular diastolic dysfunction. Receiving Lasix twice daily. Hypokalemia, recommend replacement, managed by primary care physician Suture granuloma in the abdominal wound at the previous laparotomy procedure. For exploration today with Dr. Perez Peripheral arterial disease, it was reported that she had total occlusion of the right superficial femoral artery, patient was not aware of any peripheral arterial disease prior to her hospitalization at [facility]. Chronic kidney disease stage III, continue to monitor renal function Hypertension, monitor blood pressure. Hyperlipidemia, maintained on statin, monitor lipids BMI 31. We discussed weight loss. Tobaccoism, patient has stopped smoking in June 2021, encouraged to continue with smoking cessation Patient is DNR, she is currently in a half-way resident. INGRID CHRIS MD Jan 09, 2022 10:03
[2022-01-09] MEDS ORDERED: LORazepam INJ 2 MG/ML (ATIVAN) VIAL IVP ONE (10:30)
[2022-01-09] MEDS ORDERED: fentaNYL INJ 100 MCG/2 ML AMP IVP ONE (10:30)
--- NOTE | 2022-01-09 10:44 | Progress Note ---
Subjective Date Seen by a Provider: Jan 09, 2022 Time Seen by a Provider: 10:30 Subjective/Events-last exam Patient seen with Dr. Perez. Patient reports doing ok. Denies any issues. Tolerating diet. Focused Exam Lactate Level 01/06/22 20:00: Lactic Acid Level 2.81*H 01/06/22 22:01: Lactic Acid Level 2.84*H 01/07/22 05:00: Lactic Acid Level 2.37*H Objective Exam Vital Signs Date Time Temp Pulse Resp B/P (MAP) Pulse Ox O2 Delivery O2 Flow Rate FiO2 01/09/22 08:39 Room Air 01/09/22 08:00 36.4 78 20 119/67 (84) 96 Room Air 01/09/22 07:27 36.6 86 93 01/09/22 04:00 36.6 86 20 112/58 (76) 93 Room Air 01/08/22 23:51 36.6 81 18 130/59 (82) 95 Room Air 01/08/22 20:59 97 Room Air 01/08/22 20:53 Room Air 01/08/22 20:00 36.8 74 18 106/54 (71) 96 Room Air 01/08/22 15:29 36.3 76 20 91/43 (59) 96 Room Air 01/08/22 11:17 36.3 79 20 103/52 (69) 96 Room Air I & O 01/09/22 07:00 Intake Total 1635 ml Output Total 300 ml Balance 1335 ml Capillary Refill : General Appearance: No Apparent Distress, WD/WN Neck: Normal Inspection, Supple Respiratory: No Accessory Muscle Use, No Respiratory Distress Cardiovascular: Regular Rate, Rhythm, No Edema Gastrointestinal: normal bowel sounds, soft, other (Previous midline abdominal incision with the inferior aspect opened and packed with gauze packing and covered with bandage. Mild yellowish drainage.) Extremity: Normal Inspection, Normal Range of Motion Neurologic/Psychiatric: Alert Skin: Normal Color, Warm/Dry Results Lab Laboratory Tests 01/08/22 11:23: Glucometer 90 01/08/22 15:35: Glucometer 139H 01/08/22 20:10: Glucometer 210H 01/09/22 04:45: Glucometer 135H 01/09/22 05:49: White Blood Count 10.2, Red Blood Count 2.63L, Hemoglobin 8.1L, Hematocrit 25L, Mean Corpuscular Volume 96, Mean Corpuscular Hemoglobin 31, Mean Corpuscular Hemoglobin Concent 32, Red Cell Distribution Width 23.0H, Platelet Count 81L, Mean Platelet Volume 11.2, Immature Granulocyte % (Auto) 1, Neutrophils (%) (Auto) 76H, Lymphocytes (%) (Auto) 16, Monocytes (%) (Auto) 3, Eosinophils (%) (Auto) 4, Basophils (%) (Auto) 0, Neutrophils # (Auto) 7.8, Lymphocytes # (Auto) 1.7, Monocytes # (Auto) 0.3, Eosinophils # (Auto) 0.4H, Basophils # (Auto) 0.0, Immature Granulocyte # (Auto) 0.1, Sodium Level 135, Potassium Level 3.0L, Chloride Level 102, Carbon Dioxide Level 21, Anion Gap 12, Blood Urea Nitrogen 15, Creatinine 0.85, Estimat Glomerular Filtration Rate 74, BUN/Creatinine Ratio 18, Glucose Level 130H, Calcium Level 7.6L, Corrected Calcium 9.0, Total Bilirubin 1.0, Aspartate Amino Transf (AST/SGOT) 17, Alanine Aminotransferase (ALT/SGPT) 13, Alkaline Phosphatase 95, Total Protein 5.0L, Albumin 2.3L Microbiology 01/07/22 Gram Stain - Final, Resulted 01/07/22 Wound Culture - Preliminary, Resulted Escherichia coli Klebsiella pneumoniae 01/06/22 Blood Culture - Preliminary, Resulted No growth Assessment/Plan Assessment/Plan Assess & Plan/Chief Complaint A 71 year old female with Anemia and midline suture granuloma VSS Hgb 8.1 Continue with IV fluids PUD prophylaxis PRBCs for resuscitation Will proceed with removal of suture granuloma today at bedside Wet to dry dressing change to open incision twice daily. Clinical Quality Measures DVT/VTE Risk/Contraindication: Contraindications-Pharm: Other *list below* Other: ALTAGRACIA Teresa APRN Jan 09, 2022 10:44
[2022-01-09 11:15] VITALS: BP 98/61
--- NOTE | 2022-01-09 12:37 | OPERATIVE REPORT ---
DATE OF SERVICE: 01/09/2022 ATTENDING PRIMARY CARE PHYSICIAN: Dr. Rendon. ADMITTING PHYSICIAN: Dr. Hernandez. PREOPERATIVE DIAGNOSIS: Abdominal wall suture granuloma at the level of the fascia with a long sinus and fistula tract. POSTOPERATIVE DIAGNOSIS: Abdominal wall suture granuloma at the level of the fascia with a long sinus and fistula tract. PROCEDURE: Abdominal wall exploration, debridement and removal of suture at the level of the fascia. SURGEON: Monica Perez MD. ANESTHESIA: Local. ESTIMATED BLOOD LOSS: Minimal. FINDINGS: Long fistulous tracts through adipose tissue within the opening sinus and the knot of PDS suture at the fascial base and suture granuloma. DISPOSITION: The patient tolerated the procedure well. INDICATIONS: The patient is a 71-year-old female known to us. She was presented in [facility] on 11/03/2021 with nausea and abdominal pain. She continued to have worsening abdominal pain and lactic acidosis and on 11/09, underwent an exploratory laparotomy and was found to have an ischemic right colon at the level of the proximal transverse colon and 100 cm of the distal ileum. She then underwent right hemicolectomy, resection of distal small bowel and ileocolonic anastomosis. She reports that in the past few weeks, she has developed a sinus opening at the lower pole of the midline incision. This has healed; however reoccurred. This was likely consistent with a suture granuloma. DESCRIPTION OF PROCEDURE: Abdomen was prepped and draped in standard surgical fashion. The patient was given IV pain and light sedation before the procedure. The skin, subcutaneous tissue and fascia were then anesthetized using 1% lidocaine with epinephrine. A skin incision was made opening the sinus tract. The sinus tract was deep due to the thickness of the adipose tissue. We then proceeded with blunt dissection to the level of the fascia where the knot of the suture identified. This was a PDS suture. The knot in any of the remaining suture was then removed using a sharp dissecting scissors with visualization of good hemostasis. No hernias were identified. The wound was then irrigated with visualization of good hemostasis and the wound was then packed wet to dry. The patient tolerated the procedure well. We will continue with antibiotics and continue with wet to dry dressings to allow the wound to close by secondary intention. Job ID: [id number] DocumentID: [id number] Dictated Date: 01/09/2022 11:34:42 Dive Supervisor Date: 01/09/2022 12:37:39 Dictated By: MONICA PEREZ MD MTDD
[2022-01-09 16:00] VITALS: BP 109/69
[2022-01-09 20:00] VITALS: BP 106/64
[2022-01-10] VITALS: BP 102/55
[2022-01-10 04:00] VITALS: BP 110/51
[2022-01-10] MEDS: inSUlin ASPART (NovoLOG) 1 UNIT/0.01 ML (CHARGE PER UNIT) SC SCH (04:41)
[2022-01-10] MEDS: MEROPENEM 500 MG in NS (IVPB) 100 ML IV SCH ×2 (04:43→09:32)
[2022-01-10 06:15] LABS: BASOPHILS % (AUTO) 0 % (0-10); EOSINOPHILS # (AUTO) 0.4 10^3/uL (0.0-0.3); EOSINOPHILS % (AUTO) 4 % (0-10); HEMATOCRIT 26 % (35-52); HEMOGLOBIN 8.2 g/dL (11.5-16.0); LYMPHOCYTES # (AUTO) 1.5 10^3/uL (1.0-4.0); LYMPHOCYTES % (AUTO) 18 % (12-44); MEAN CORPUSCULAR HEMOGLOBIN 31 pg (25-34); MEAN CORPUSCULAR HGB CONC 32 g/dL (32-36); MEAN CORPUSCULAR VOLUME 100 fL (80-99); MEAN PLATELET VOLUME 11.5 fL (9.0-12.2); MONOCYTES # (AUTO) 0.4 10^3/uL (0.0-1.0); MONOCYTES % (AUTO) 4 % (0-12); NEUTROPHILS # (AUTO) 6.3 10^3/uL (1.8-7.8); NEUTROPHILS % (AUTO) 73 % (42-75); PLATELET COUNT 76 10^3/uL (130-400); WHITE BLOOD COUNT 8.6 10^3/uL (4.3-11.0)
[2022-01-10 06:20] LABS: ALBUMIN 2.2 GM/DL (3.2-4.5); POTASSIUM 3.6 MMOL/L (3.6-5.0)
[2022-01-10 06:21] LABS: CALCIUM 7.5 MG/DL (8.5-10.1)
[2022-01-10 06:22] LABS: TOTAL PROTEIN 4.9 GM/DL (6.4-8.2)
[2022-01-10 06:24] LABS: BILIRUBIN,TOTAL 0.9 MG/DL (0.1-1.0)
[2022-01-10 06:26] LABS: CREATININE SERUM 0.82 MG/DL (0.60-1.30)
[2022-01-10 08:30] VITALS: BP 116/67
--- NOTE | 2022-01-10 09:06 | Cardiology Progress Note ---
Subjective Date Seen by Provider: Jan 10, 2022 Time Seen by Provider: 08:25 Subjective/Events-last exam Patient is sitting up in bed, eating breakfast, no new complaints. Denies any chest pain or dyspnea. Review of Systems General: No Chills, No Night Sweats; Fatigue; No Malaise, No Appetite, No Other HEENT: No Head Aches, No Visual Changes, No Eye Pain, No Ear Pain, No Dysphasia, No Sinus Congestion, No Post Nasal Drip, No Sore Throat, No Other Pulmonary: Dyspnea; No Cough, No Pleuritic Chest Pain, No Other Cardiovascular: No: Chest Pain, Palpitations, Orthopnea, Paroxysmal Noc. Dyspnea, Edema, Lt Headedness, Other Objective-Cardiology Exam Last Set of Vital Signs Vital Signs 01/06/22 01/10/22 01/10/22 16:16 08:30 08:32 Temp 37.4 Pulse 86 Resp 20 B/P (MAP) 116/67 (83) Pulse Ox 100 O2 Delivery Room Air O2 Flow Rate 0.00 FiO2 21 I&O Intake and Output 01/10/22 00:00 Intake Total 1710 ml Balance 1710 ml Intake Oral 1710 ml # Voids 4 # Bowel Movements 1 General: Alert, Oriented X3, Cooperative HEENT: Atraumatic, PERRLA Neck: Supple, No JVD, No Thyromegaly Lungs: Clear to Auscultation, Normal Air Movement Heart: Regular Rate, Normal S1, Normal S2, No Murmurs Abdomen: Normal Bowel Sounds, Soft, No Tenderness, No Hepatosplenomegaly, No Masses Extremities: No Clubbing, No Cyanosis, No Edema, Normal Pulses, No Tenderness/Swelling Skin: No Rashes, No Breakdown, No Significant Lesion Neuro: Normal Gait, Normal Speech, Strength at 5/5 X4 Ext, Normal Tone, Sensation Intact Psych/Mental Status: Mental Status NL, Mood NL Results Lab Laboratory Tests 01/10/22 05:20 A/P-Cardiology Admission Diagnosis Anemia Coronary artery disease Congestive heart failure, chronic compensated left ventricular diastolic dysfunction Hyperlipidemia Assessment/Plan Severe anemia, excessive bruising, feeling better, received blood transfusion, H&H are better, followed and managed by primary care physician Coronary artery disease, History of non-ST elevation myocardial infarction occurred in October 2021 that was treated conservatively, it was reported that she had significant disease in the right coronary artery that was treated conservatively. Patient had stenting done in June 2021 after an acute myocardial infarction at [facility]. She has been maintained on aspirin and Plavix. Patient did not receive a full y ear of treatment but exceeded 6 months margin of treatment. Due to the active bleeding and the severe anemia. I recommend discontinuation of aspirin and Plavix. 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 Congestive heart failure, chronic compensated left ventricular diastolic dysfunction. Receiving Lasix twice daily. Suture granuloma in the abdominal wound at the previous laparotomy procedure. Had fistula, evaluated with Dr. Perez. Peripheral arterial disease, it was reported that she had total occlusion of the right superficial femoral artery, patient was not aware of any peripheral arterial disease prior to her hospitalization at [facility]. Chronic kidney disease stage III, continue to monitor renal function Hypertension, monitor blood pressure. Hyperlipidemia, maintained on statin, monitor lipids BMI 31. We discussed weight loss. Tobaccoism, patient has stopped smoking in June 2021, encouraged to continue with smoking cessation Patient is DNR, she is currently in a long term resident. Supervisory-Addendum Brief Supervisory Addendum Participated in pt care: history, MDM, physical Personally performed: exam, history, MDM Care discussed with: FISH Results interpretation: Verified all documentation Notes: Patient was seen and evaluated with Lloyd, examination performed, management plan was discussed, agree with the current scribed note, I made few changes to the note using Italic font Patient was seen at bedside, laying down comfortably, feeling better, not requiring oxygen Denied any chest pain, reporting improvement Cardiac status appears to be stable, cannot tolerate anticoagulation at this time Recommend the use of aspirin if no further bleeding was identified Continue to monitor blood pressure LLOYD THOMAS Jan 10, 2022 09:06 INGRID CHRIS MD Jan 10, 2022 11:59
[2022-01-10] MEDS: PANTOPRAZOLE 40 MG (PROTONIX) TAB PO SCH (09:31)
[2022-01-10] MEDS: KCL 20 MEQ TAB (K-DUR) PO SCH (09:31)
[2022-01-10] MEDS: SENNOSIDES 8.6 MG (SENOKOT) TAB PO SCH (09:32)
[2022-01-10] MEDS: DOCUSATE SODIUM 100 MG (COLACE) CAP PO SCH (09:32)
[2022-01-10] MEDS ORDERED: CEFD300C3 PO (10:27)
--- NOTE | 2022-01-10 10:28 | Discharge Inst-Skilled Nursing ---
Discharge Inst-Skilled NF Reconcile Patient Problems Problems Reviewed?: Yes Chief Complaint CC: Severe symptomatic anemia HPI: This is a 71 yr old WF known to me from prior admissions. 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 She presented to the ER with symptomatic anemia. She was found to have a hemoglobin of 5.6 requiring a transfusion. She currently has wounds and wound care has been consulted. She is currently confused. PICC line will be placed. Protonix will be started for empiric coverage of GI bleeding. Dr. Eduardo may need to do an EGD. We will move her down to 4th floor. She remains a DNR. Patient Instructions Patient Problems: Debility Goal: [place] Consult/Follow Up/Orders Follow Up Appt.: [facility] rounds Skilled NF Admit to: Certification (SNF) I certify that SNF services are required to be given on an inpatient basis because of the above named patient's need for fdc care on a continuing basis for the conditions(s) for which he/she was receiving inpatient hospital services prior to his/her transfer to the SNF. Group Home Facility Order: Nursing Services, [employer] [facility]-Evaluate & Treat, Physical Therapy-Evaluate & Treat Oxygen Delivery Method: Room Air Discharge Diet: No Restrictions Resuscitation Status: Do Not Resuscitate New & Resume Previous Orders New Medications: Cefdinir (Cefdinir) 300 Mg Capsule 300 MG PO BID, #12 CAP Continued Medications: Atorvastatin Calcium (Atorvastatin Calcium) 80 Mg Tablet 80 MG PO HS, TAB Budesonide/Formoterol Fumarate (Symbicort 160-4.5 Mcg Inhaler) 10.2 Gm Hfa.aer.ad 2 PUFF IH BID, EA Bumetanide (Bumetanide) 1 Mg Tablet 1 MG PO BID, TAB Calcium Carbonate (Calcium Carbonate) 600 Mg Tablet 1200 MG PO DAILY, TAB Dicyclomine HCl (Dicyclomine HCl) 10 Mg Capsule 10 MG PO ACHS, CAP Empagliflozin (Jardiance) 10 Mg Tablet 10 MG PO DAILY, TAB Ferrous Sulfate (Ferrous Sulfate) 325 Mg Tablet 325 MG PO BID, TAB Fish Oil/Om-3/Dl-E/FA/B6-B12 (Cardiovid Plus Softgel) 1 Each Capsule 1 EACH PO DAILY, CAP Insulin Glargine,Hum.rec.anlog (Lantus) 100 Unit/1 Ml Vial 10 UNIT SQ HS, EA Insulin Lispro (Humalog) 100 Unit/1 Ml Vial UNIT SQ 0000,0600,1200,1800, EA SLIDING SCALE: 150-199-1 UNIT 200-249=3 UNITS 250-299=5 UNITS GLUCOSE 299 OR GREATER CONTACT PHYSICIAN Ipratropium/Albuterol Sulfate (Iprat-Albut 0.5-3(2.5) mg/3 ml) 3 Ml Ampul.neb 3 ML IH TID, EACH Ipratropium/Albuterol Sulfate (Iprat-Albut 0.5-3(2.5) mg/3 ml) 3 Ml Ampul.neb 3 ML IH EVERY 2 HOURS PRN for SHORTNESS OF BREATH, EACH Levothyroxine Sodium (Levothyroxine Sodium) 88 Mcg Tablet 88 MCG PO DAILY, TAB Magnesium Oxide (Magnesium) 400 Mg Tablet 400 MG PO BID, TAB Oxycodone HCl (Oxycodone HCl) 5 Mg Tablet 5 MG PO Q4H PRN for PAIN-SEVERE (8-10), TAB Pantoprazole Sodium (Pantoprazole Sodium) 40 Mg Tablet.dr 40 MG PO BID, TAB Potassium Chloride (Potassium Chloride) 20 Meq Tablet.er 20 MEQ PO BID, TAB Discontinued Medications: Apixaban (Eliquis) 5 Mg Tablet 5 MG PO BID, TAB Aspirin (Aspirin EC) 81 Mg Tablet.dr 81 MG PO DAILY, TAB Prednisone (Prednisone) 10 Mg Tab 40 MG PO DAILY, TAB TAKES 4 (10MG) TABS Katya Hernandez Jan 10, 2022 10:27 KATYA HERNANDEZ DO Jan 10, 2022 10:28
--- NOTE | 2022-01-10 10:28 | Discharge Summary ---
Discharge Summary Hospital Course Was the Problem List Reviewed?: Yes Problems/Dx: (1) Symptomatic anemia Status: Acute (2) GI bleed Status: Acute Hospital Course Date of Admission: Jan 06, 2022 at 15:16 Admission Diagnosis : Family Physician/Provider: Jayjay Rendon MD Date of Discharge: 01/10/22 Discharge Diagnosis: Symptomatic anemia, end-stage COPD, dementia, CHF, CAD, abdominal wound Hospital Course: Hopital Course: Raul Quiroz is a 71 yr old F with a past medical history of ischemic bowel status post resection in 2020, and critical illness with end stage COPD, HTN, GERD, CHF, CAD (10+ stents) and hypothyroidism. She presented to the ER with symptomatic anemia with a hemoglobin of 5.6 requiring transfusion. She was also found to have a suture granuloma and open wound that was infected with E.coli and K. pneumoniae. Surgery was brought on with successful closure and wound dressing. She was started on IV antibiotics. Since transfusion her hemoglobin has been stable in the 7.5-8.2 range. We will have to hold her anticoagulants due to risk of bleeding. She will be discharged to nursing home with oral antibiotics KAM GAN U Labs and Pending Lab Test: Laboratory Tests 01/09/22 10:39: Glucometer 161H 01/09/22 15:48: Glucometer 142H 01/09/22 20:04: Glucometer 247H 01/10/22 04:19: Glucometer 143H 01/10/22 05:20: White Blood Count 8.6, Red Blood Count 2.61L, Hemoglobin 8.2L, Hematocrit 26L, Mean Corpuscular Volume 100H, Mean Corpuscular Hemoglobin 31, Mean Corpuscular Hemoglobin Concent 32, Red Cell Distribution Width 22.2H, Platelet Count 76L, Mean Platelet Volume 11.5, Immature Granulocyte % (Auto) 1, Neutrophils (%) (Auto) 73, Lymphocytes (%) (Auto) 18, Monocytes (%) (Auto) 4, Eosinophils (%) (Auto) 4, Basophils (%) (Auto) 0, Neutrophils # (Auto) 6.3, Lymphocytes # (Auto) 1.5, Monocytes # (Auto) 0.4, Eosinophils # (Auto) 0.4H, Basophils # (Auto) 0.0, Immature Granulocyte # (Auto) 0.1, Sodium Level 133L, Potassium Level 3.6, Chloride Level 104, Carbon Dioxide Level 19L, Anion Gap 10, Blood Urea Nitrogen 14, Creatinine 0.82, Estimat Glomerular Filtration Rate 77, BUN/Creatinine Ratio 17, Glucose Level 142H, Calcium Level 7.5L, Corrected Calcium 8.9, Total Bilirubin 0.9, Aspartate Amino Transf (AST/SGOT) 15, Alanine Aminotransferase (ALT/SGPT) 12, Alkaline Phosphatase 114, Total Protein 4.9L, Albumin 2.2L Microbiology 01/07/22 Gram Stain - Final, Resulted 01/07/22 Wound Culture - Preliminary, Resulted Escherichia coli Klebsiella pneumoniae 01/06/22 Blood Culture - Preliminary, Resulted No growth Home Meds Active Cefdinir 300 Mg Capsule 300 Mg PO BID Reported Ferrous Sulfate 325 Mg Tablet 325 Mg PO BID Oxycodone HCl 5 Mg Tablet 5 Mg PO Q4H PRN Humalog (Insulin Lispro) 100 Unit/1 Ml Vial Unit SQ 0000,0600,1200,1800 SLIDING SCALE: 150-199-1 UNIT 200-249=3 UNITS 250-299=5 UNITS GLUCOSE 299 OR GREATER CONTACT PHYSICIAN Iprat-Albut 0.5-3(2.5) mg/3 ml (Ipratropium/Albuterol Sulfate) 3 Ml Ampul.neb 3 Ml IH EVERY 2 HOURS PRN Lantus (Insulin Glargine,Hum.rec.anlog) 100 Unit/1 Ml Vial 10 Unit SQ HS Potassium Chloride 20 Meq Tablet.er 20 Meq PO BID Magnesium (Magnesium Oxide) 400 Mg Tablet 400 Mg PO BID Bumetanide 1 Mg Tablet 1 Mg PO BID Eliquis (Apixaban) 5 Mg Tablet 5 Mg PO BID Cardiovid Plus Softgel (Fish Oil/Om-3/Dl-E/FA/B6-B12) 1 Each Capsule 1 Each PO DAILY Prednisone 10 Mg Tab 40 Mg PO DAILY TAKES 4 (10MG) TABS Iprat-Albut 0.5-3(2.5) mg/3 ml (Ipratropium/Albuterol Sulfate) 3 Ml Ampul.neb 3 Ml IH TID Symbicort 160-4.5 Mcg Inhaler (Budesonide/Formoterol Fumarate) 10.2 Gm Hfa.aer.ad 2 Puff IH BID Dicyclomine HCl 10 Mg Capsule 10 Mg PO ACHS Atorvastatin Calcium 80 Mg Tablet 80 Mg PO HS Pantoprazole Sodium 40 Mg Tablet. 40 Mg PO BID Jardiance (Empagliflozin) 10 Mg Tablet 10 Mg PO DAILY Levothyroxine Sodium 88 Mcg Tablet 88 Mcg PO DAILY Aspirin EC (Aspirin) 81 Mg Tablet. 81 Mg PO DAILY Calcium Carbonate 600 Mg Tablet 1,200 Mg PO DAILY Assessment/Pt Instructions PCP in 1 week Discharge Planning: <30 minutes discharge planning Discharge Instructions Discharge Diet: No Restrictions Discharge Physical Examination Vital Signs Vital Signs Date Time Temp Pulse Resp B/P (MAP) Pulse Ox O2 Delivery O2 Flow Rate FiO2 01/10/22 08:32 100 Room Air 0.00 01/10/22 08:30 37.4 86 20 116/67 (83) 01/06/22 16:16 21 General Appearance: No Apparent Distress, WD/WN, Chronically ill, Obese Respiratory: Lungs Clear, Normal Breath Sounds Allergies: Coded Allergies: Penicillins (Unverified Adverse Reaction, Unknown, 01/16/21) cephalexin (Unverified Adverse Reaction, Unknown, 01/16/21) ciprofloxacin (Unverified Adverse Reaction, Unknown, 01/16/21) erythromycin base (Unverified Adverse Reaction, Unknown, 01/16/21) Discharge Summary Date of Admission Jan 06, 2022 at 15:16 Date of Discharge Discharge Date: Jan 10, 2022 Admission Diagnosis Assessment: Severe and symptomatic anemia 5.6 hemoglobin requiring transfusions Recent non-STEMI on Plavix and aspirin holding currently History of severe COPD Ischemic bowel requiring resection 2020 Confusion from dementia Chronically ill resides in a fpc Former smoker Plan: Move to fourth floor Dr. Eduardo appreciated Monitor hemoglobin Discharge Diagnosis Assessment: Severe and symptomatic anemia 5.6 hemoglobin requiring transfusions Recent non-STEMI on Plavix and aspirin holding currently History of severe COPD Ischemic bowel requiring resection 2020 Confusion from dementia Chronically ill resides in a fpc Former smoker Dementia and confusion Plan: Move to fourth floor Dr. Eduardo appreciated Monitor hemoglobin 01/08/2022: Monitor hemoglobin Monitor confusion 01/09/22: Appreciate Dr. FERNANDEZ Monitor hemoglobin (1) Symptomatic anemia Status: Acute (2) GI bleed Status: Acute Clinical Quality Measures DVT/VTE Risk/Contraindication: Contraindications-Pharm: Other *list below* Other: DAVEY Kim DO Jan 10, 2022 10:28
--- NOTE | 2022-01-10 10:59 | Progress Note ---
KAM GAN 01/10/22 1059: Progress Note Hopital Course: Raul Quiroz is a 71 yr old F with a past medical history of ischemic bowel status post resection in 2020, and critical illness with end stage COPD, HTN, GERD, CHF, CAD (10+ stents) and hypothyroidism. She presented to the ER with symptomatic anemia with a hemoglobin of 5.6 requiring transfusion. She was also found to have a suture granuloma and open wound that was infected with E.coli and K. pneumoniae. Surgery was brought on with successful closure and wound dressing. She was started on IV antibiotics. Since transfusion her hemoglobin has been stable in the 7.5-8.2 range. We will have to hold her anticoagulants due to risk of bleeding. She will be discharged to long term with oral antibiotics KATYA JARQUIN DO 01/11/22 0520: Supervisory-Addendum Brief Verification & Attestation Participated in pt care: history, MDM, physical Personally performed: exam, history, MDM, supervision of care Care discussed with: Medical Student Procedures: n/a Results interpretation: Verified all documentation Verification and Attestation of Medical Student E/M Service A medical student performed and documented this service in my presence. I reviewed and verified all information documented by the medical student and made modifications to such information, when appropriate. I personally performed the physical exam and medical decision making. Katya Jarquin, Jan 11, 2022,05:20 KAM GAN Jan 10, 2022 10:59 KATYA JARQUIN DO Jan 11, 2022 05:20
[2022-01-10] MEDS ORDERED: MICONAZOLE 2% POWDER (DESENEX AF) 90 GM TOP SCH (11:00)
[2022-01-10] MEDS ORDERED: HYPOCHLOROUS ACID/NaCl (VASHE) 250 ML IR PRN (11:00)
--- NOTE | 2022-01-10 11:29 | Occ Therapy Progress Note ---
Therapy Progress Note OT orders received and evaluation attempted. Pt declined OT evaluation at this time, as she reports she is returning to NH today. Pt educated on purpose and benefit of OT, but she continued to decline. OT will attempt evaluation again tomorrow if pt still admitted. PATT BAHENA OT Jan 10, 2022 11:29
--- NOTE | 2022-01-11 15:21 | Physician Query Clarification ---
PQ-Further Specificity Admission/Discharge Admission Date: Jan 06, 2022 at 15:16 Discharge Date: Jan 10, 2022 at 13:40 Dr. Hernandez, The medical record reflects the following clinical scenario: History/Risk Factors: symptomatic anemia, infected suture granuloma, HTN w/chronic diastolic CHF/CKD 3 Clinical Findings: Hgb 5.6 Treatment: Transfusion 2U PRBC's Question: Can you further specify the underlying cause of the anemia per the clinical indicators above? Please document a response in the Progress Notes or Discharge Summary. 1. acute blood loss anemia 2. anemia d/t infected suture granuloma 3. GI bleed 4. Other, with explanation of the clinical findings. 5. Clinically undetermined, no explanation for the clinical findings. PHYSICIAN RESPONSE Can you specify per above: 1 Please remember a lack of response to the above will prompt a phone page by CDI/Coding staff. In responding to this query, please exercise your independent professional judgment. The purpose of this communication is to more accurately reflect the complexity of your patients condition. The fact that a question is asked does not imply that any particular answer is desired or expected. Thank you for your timely response to this clarification. Requestors name: Chely THIS PHYSICIAN QUERY FORM IS A PERMANENT PART OF THE MEDICAL RECORD CHELY ALLEN Jan 11, 2022 15:21 DAVEY HERNANDEZ DO Jan 11, 2022 15:55
== END 2022-01-10 13:40 | DRG 908 ==
LOC: ER 13:45 → EDUNIT# 13:52 → CSD 15:16 → 4TH 01-07 12:05
PROVIDERS: ADMIT Internal Medicine; ATTEND Internal Medicine
PROC: 0JC80ZZ Extirpation of Matter from Abdomen Subcutaneous Tissue and Fascia, Open Approach (ICD-10-PCS; principal; 2022-01-09)
DX: T85.79XA Infection and inflammatory reaction due to other internal prosthetic devices, implants and grafts, initial encounter (principal); D62 Acute posthemorrhagic anemia; I13.0 Hypertensive heart and chronic kidney disease with heart failure and stage 1 through stage 4 chronic kidney disease, or unspecified chronic kidney disease; I50.32 Chronic diastolic (congestive) heart failure; I70.261 Atherosclerosis of native arteries of extremities with gangrene, right leg; L97.418 Non-pressure chronic ulcer of right heel and midfoot with other specified severity; E46 Unspecified protein-calorie malnutrition; E11.22 Type 2 diabetes mellitus with diabetic chronic kidney disease; N18.30 Chronic kidney disease, stage 3 unspecified; Z66 Do not resuscitate; Z20.822 Contact with and (suspected) exposure to COVID-19; I25.10 Atherosclerotic heart disease of native coronary artery without angina pectoris; E78.5 Hyperlipidemia, unspecified; J44.9 Chronic obstructive pulmonary disease, unspecified; F41.9 Anxiety disorder, unspecified; L89.621 Pressure ulcer of left heel, stage 1; L89.322 Pressure ulcer of left buttock, stage 2; L89.312 Pressure ulcer of right buttock, stage 2; I48.91 Unspecified atrial fibrillation; K21.9 Gastro-esophageal reflux disease without esophagitis; E03.9 Hypothyroidism, unspecified; E66.9 Obesity, unspecified; Z68.31 Body mass index [BMI] 31.0-31.9, adult; F03.90 Unspecified dementia, unspecified severity, without behavioral disturbance, psychotic disturbance, mood disturbance, and anxiety; Z87.891 Personal history of nicotine dependence; Z99.81 Dependence on supplemental oxygen; Z91.81 History of falling; Z86.718 Personal history of other venous thrombosis and embolism; Z95.5 Presence of coronary angioplasty implant and graft; I25.2 Old myocardial infarction; Z96.652 Presence of left artificial knee joint; Z88.1 Allergy status to other antibiotic agents; Z88.0 Allergy status to penicillin; Z79.01 Long term (current) use of anticoagulants; Z79.02 Long term (current) use of antithrombotics/antiplatelets; Z79.82 Long term (current) use of aspirin; Z79.4 Long term (current) use of insulin; Z79.52 Long term (current) use of systemic steroids; Z79.899 Other long term (current) drug therapy; B96.20 Unspecified Escherichia coli [E. coli] as the cause of diseases classified elsewhere; B96.1 Klebsiella pneumoniae [K. pneumoniae] as the cause of diseases classified elsewhere
CPT/HCPCS: 36415; 36569; 51702; 71045; 76937; 80053; 82274; 82947; 83605; 83735; 83880; 85014; 85018; 85025; 85610; 86850; 86900; 86901; 86920; 87040; 87070; 87077; 87186; 87205; 87636; 93005; 94640; 94760; 96374; 96375

== ENCOUNTER → 2022-01-06 | Outpatient (CLI) | payer MEDICARE ==
[~2022-01-06] MED LIST changes: +APIX5TAB PO; +BUME1TAB8 PO; +FERR-74 PO; +FISH1CAP6 PO; +INSU100V SQ; +INSU100V6 SQ; +MAGN200T8 PO; +MAGN400T39 PO; +OXYC5TAB PO; +POTA-179 PO; +POTA-51 PO; +PRD10T PO; +SULF1TAB38 PO
[2022-01-06 11:53] LABS: WHITE BLOOD COUNT 12.1 10^3/uL (4.3-11.0)
[2022-01-06 12:05] LABS: HEMOGLOBIN 5.6 g/dL (11.5-16.0)
== END ==
LOC: LAB FS 11:40
PROVIDERS: ATTEND Family Medicine
DX: E11.65 Type 2 diabetes mellitus with hyperglycemia (principal); J96.01 Acute respiratory failure with hypoxia
CPT/HCPCS: 36415; 83036; 85027

== ENCOUNTER 2022-01-16 18:10 | Emergency (ER) | payer MEDICARE ==
[~2022-01-16] VITALS: Ht 175.3 cm; Wt 99.8 kg
[~2022-01-16 18:10] MED LIST changes: +APIX5TAB PO; +BUME1TAB8 PO; +CEFD300C3 PO; +FERR-74 PO; +FISH1CAP6 PO; +INSU100V SQ; +INSU100V6 SQ; +MAGN400T39 PO; +OXYC5TAB PO; +POTA-51 PO; +PRD10T PO
[2022-01-16] MEDS ORDERED: ACETAMINOPHEN 500 MG TAB (TYLENOL) PO PRN (18:30)
[2022-01-16] MEDS ORDERED: NS IV ONE (18:30)
[2022-01-16 18:34] LABS: BASOPHILS % (AUTO) 0 % (0-10); EOSINOPHILS # (AUTO) 0.3 10^3/uL (0.0-0.3); EOSINOPHILS % (AUTO) 5 % (0-10); HEMATOCRIT 23 % (35-52); HEMOGLOBIN 7.9 g/dL (11.5-16.0); LYMPHOCYTES # (AUTO) 1.7 10^3/uL (1.0-4.0); LYMPHOCYTES % (AUTO) 32 % (12-44); MEAN CORPUSCULAR HEMOGLOBIN 31 pg (25-34); MEAN CORPUSCULAR HGB CONC 34 g/dL (32-36); MEAN CORPUSCULAR VOLUME 92 fL (80-99); MEAN PLATELET VOLUME 11.1 fL (9.0-12.2); MONOCYTES # (AUTO) 0.5 10^3/uL (0.0-1.0); MONOCYTES % (AUTO) 9 % (0-12); NEUTROPHILS # (AUTO) 2.8 10^3/uL (1.8-7.8); NEUTROPHILS % (AUTO) 53 % (42-75); PLATELET COUNT 145 10^3/uL (130-400); WHITE BLOOD COUNT 5.2 10^3/uL (4.3-11.0)
[2022-01-16 18:43] LABS: INR 1.3 (0.8-1.4); PROTHROMBIN TIME PATIENT 16.4 SEC (12.2-14.7)
[2022-01-16 18:54] LABS: ALBUMIN 2.3 GM/DL (3.2-4.5); BILIRUBIN,TOTAL 0.5 MG/DL (0.1-1.0); CALCIUM 6.7 MG/DL (8.5-10.1); CREATININE SERUM 1.4 MG/DL (0.60-1.30); POTASSIUM 3.4 MMOL/L (3.6-5.0); TOTAL PROTEIN 5.5 GM/DL (6.4-8.2)
[2022-01-16] MEDS ORDERED: ACETAMINOPHEN 500 MG TAB (TYLENOL) ONE (19:01)
[2022-01-16] MEDS ORDERED: NS IV 1000 ML 1,000 ML IV ONE ×2 (19:15→20:00)
--- NOTE | 2022-01-16 19:18 | Diagnostic Imaging Report ---
EXAM: Chest 1 view AP/PA only. INDICATION: Shortness of air. COMPARISON: Chest radiograph 01/06/2022. FINDINGS: Cardiomegaly with normal central pulmonary vascularity. Patchy airspace opacities in both lungs, greater on the left. No pleural effusion or pneumothorax. No acute osseous findings. Lung apices are not entirely included on the exam. IMPRESSION: Mild bilateral airspace opacities are subtle but have progressed since 01/06/2022. Dictated by: Dictated on workstation # [id number]
[2022-01-16] MEDS ORDERED: DOXYCYCLINE INJECTION 100 MG in NS (IVPB) 100 ML IV ONE (19:30)
[2022-01-16 19:36] LABS: CLARITY,URINE TURBID; COLOR,URINE YELLOW; PH,URINE 6.5 (5-9); PROTEIN,URINE 1+ (NEGATIVE)
[2022-01-16 19:37] LABS: BILIRUBIN,URINE NEGATIVE (NEGATIVE); GLUCOSE, URINE (UA) 2+ (NEGATIVE); KETONES,URINE NEGATIVE (NEGATIVE); LEUKOCYTE ESTERASE ,URINE 3+ (NEGATIVE); NITRITE,URINE NEGATIVE (NEGATIVE)
[2022-01-16 19:38] LABS: URINE OTHER CX ALREADY ORDERED /HPF; WBC,URINE TNTC /HPF
[2022-01-16] MEDS ORDERED: NS (IVPB) 100 ML ONE (19:39)
--- NOTE | 2022-01-16 19:47 | ED General ---
General Chief Complaint: Fever-Adult/Adol Stated Complaint: N/V/D, FEVER Nursing Triage Note: PT TO ROOM FS05 [facility] WITH C/O FEVER. Source of Information: Patient Exam Limitations: No Limitations History of Present Illness Date Seen by Provider: Jan 16, 2022 Time Seen by Provider: 18:00 Initial Comments Patient is a 71-year-old female custodial patient with nonhealing abdominal wall wound who presents fever of 102.7 at custodial facility today. Patient denies cough, sore throat, chest pain, palpitation shortness of breath. Denies increased oozing or pain redness or swelling from abdominal wall wound. She reports reports sacral wounds which are new. Patient is not currently on antibiotics. Denies flank pain, abdominal pain. No urinary frequency urgency or dysuria. Recent hospitalization for anemia, Covid and Covid. 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 No other acute symptoms or complaints. Timing/Duration: 4-6 Hours Severity: Moderate Modifying Factors: improves with Other Associated Systoms: Other Allergies and Home Medications Allergies Coded Allergies: Penicillins (Unverified Adverse Reaction, Unknown, 01/16/21) cephalexin (Unverified Adverse Reaction, Unknown, 01/16/21) ciprofloxacin (Unverified Adverse Reaction, Unknown, 01/16/21) erythromycin base (Unverified Adverse Reaction, Unknown, 01/16/21) Patient Home Medication List Home Medication List Reviewed: Yes Atorvastatin Calcium (Atorvastatin Calcium) 80 Mg Tablet, 80 MG PO HS, (Reported) Entered as Reported by: FARHEEN PASTOR on 11/15/21 1224 Budesonide/Formoterol Fumarate (Symbicort 160-4.5 Mcg Inhaler) 10.2 Gm Hfa.aer.ad, 2 PUFF IH BID, (Reported) Entered as Reported by: FARHEEN PASTOR on 11/15/21 1224 Bumetanide (Bumetanide) 1 Mg Tablet, 1 MG PO BID, (Reported) Entered as Reported by: FARHEEN PASTOR on 01/07/22 1536 Calcium Carbonate (Calcium Carbonate) 600 Mg Tablet, 1,200 MG PO DAILY, (Reported) Entered as Reported by: FARHEEN PASTOR on 11/15/21 1224 Cefdinir (Cefdinir) 300 Mg Capsule, 300 MG PO BID Prescribed by: DAVEY JARQUIN on 01/10/22 1027 Dicyclomine HCl (Dicyclomine HCl) 10 Mg Capsule, 10 MG PO ACHS, (Reported) Entered as Reported by: FARHEEN PASTOR on 11/15/21 1224 Empagliflozin (Jardiance) 10 Mg Tablet, 10 MG PO DAILY, (Reported) Entered as Reported by: FARHEEN PASTOR on 11/15/21 1224 Ferrous Sulfate (Ferrous Sulfate) 325 Mg Tablet, 325 MG PO BID, (Reported) Entered as Reported by: FARHEEN PASTOR on 01/07/22 1536 Fish Oil/Om-3/Dl-E/FA/B6-B12 (Cardiovid Plus Softgel) 1 Each Capsule, 1 EACH PO DAILY, (Reported) Entered as Reported by: FARHEEN PASTOR on 01/07/22 153 Insulin Glargine,Hum.rec.anlog (Lantus) 100 Unit/1 Ml Vial, 10 UNIT SQ HS, (Reported) Entered as Reported by: FARHEEN PASTOR on 01/07/22 153 Insulin Lispro (Humalog) 100 Unit/1 Ml Vial, UNIT SQ 0000,0600,1200,1800, (Reported) Entered as Reported by: FARHEEN PASTOR on 01/07/22 153 Ipratropium/Albuterol Sulfate (Iprat-Albut 0.5-3(2.5) mg/3 ml) 3 Ml Ampul.neb, 3 ML IH TID, (Reported) Entered as Reported by: FARHEEN PASTOR on 11/15/21 1224 Ipratropium/Albuterol Sulfate (Iprat-Albut 0.5-3(2.5) mg/3 ml) 3 Ml Ampul.neb, 3 ML IH EVERY 2 HOURS PRN for SHORTNESS OF BREATH, (Reported) Entered as Reported by: FARHEEN PASTOR on 01/07/22 1536 Levothyroxine Sodium (Levothyroxine Sodium) 88 Mcg Tablet, 88 MCG PO DAILY, ( Reported) Entered as Reported by: FARHEEN PASTOR on 11/15/21 1224 Magnesium Oxide (Magnesium) 400 Mg Tablet, 400 MG PO BID, (Reported) Entered as Reported by: FARHEEN PASTOR on 01/07/22 1536 Oxycodone HCl (Oxycodone HCl) 5 Mg Tablet, 5 MG PO Q4H PRN for PAIN-SEVERE (8- 10), (Reported) Entered as Reported by: FARHEEN PASTOR on 01/07/22 1536 Pantoprazole Sodium (Pantoprazole Sodium) 40 Mg Tablet.dr, 40 MG PO BID, (Reported) Entered as Reported by: FARHEEN PASTOR on 11/15/21 1224 Potassium Chloride (Potassium Chloride) 20 Meq Tablet.er, 20 MEQ PO BID, (Reported) Entered as Reported by: FARHEEN PASTOR on 01/07/22 1536 Discontinued Medications Apixaban (Eliquis) 5 Mg Tablet, 5 MG PO BID, (Reported) Entered as Reported by: FARHEEN PASTOR on 01/07/22 153 Aspirin (Aspirin EC) 81 Mg Tablet.dr, 81 MG PO DAILY, (Reported) Entered as Reported by: FARHEEN PASTOR on 11/15/21 1224 Prednisone (Prednisone) 10 Mg Tab, 40 MG PO DAILY, (Reported) Entered as Reported by: FARHEEN PASTOR on 01/07/22 153 Review of Systems Review of Systems Constitutional: see HPI EENTM: see HPI Respiratory: see HPI Cardiovascular: see HPI Genitourinary: see HPI Musculoskeletal: no symptoms reported Skin: see HPI Psychiatric/Neurological: See HPI Hematologic/Lymphatic: See HPI Immunological/Allergic: see HPI All Other Systems Reviewed Negative Unless Noted: Yes Past Mtegtjr-Jhtafr-Wocwbr Hx Patient Social History Tobacco Use?: No Smoking Status: Never a Smoker Smokeless Tobacco Frequency: Never a User Use of E-Cig and/or Vaping dev: No Use of E-Cig and/or Vaping Fermin: Never a User Substance use?: No Alcohol Use?: No Pt feels they are or have been: No Immunizations Up To Date Tetanus Booster (TDap): Unknown First/Initial COVID19 Vaccinat: 2020 Second COVID19 Vaccination Lon: 2020 Third COVID19 Vaccination Date: 2020 Seasonal Allergies Seasonal Allergies: No Past Medical History Surgery/Hospitalization HX: HTN, DM, COPD with O2 dependency at night, frequent falls, Hypothyroidism. Bowel resection discharged 10/31/21 Surgeries: Yes Abdominal, Gallbladder Respiratory: Yes COPD Cardiac: Yes Coronary Artery Disease, Hypertension Neurological: Yes Dementia Genitourinary: Yes (Bladder suspension for incont) Bladder Infection Gastrointestinal: Yes Gastrointestinal Bleed, Obstructive Bowel, Gall Bladder Disease Musculoskeletal: Yes Arthritis Endocrine: Yes Hypothyroidsim, Diabetes, Non-Insulin dep HEENT: No Cancer: No Psychosocial: Yes Anxiety Integumentary: No (thin skin with numerous skin tears/ecchymosis) Blood Disorders: No Family Medical History No Pertinent Family Hx Physical Exam Vital Signs Vital Signs - First Documented 01/16/22 18:10 Temp 37.4 Pulse 85 Resp 15 B/P (MAP) 72/53 (59) Pulse Ox 97 O2 Delivery Nasal Cannula Capillary Refill : Less Than 3 Seconds Height, Weight, BMI Height: '" Weight: lbs. oz. kg; 32.00 BMI Method: General Appearance: No Apparent Distress, WD/WN, Anxious Eyes: Bilateral Eye Normal Inspection, Bilateral Eye PERRL, Bilateral Eye EOMI HEENT: PERRL/EOMI Neck: Full Range of Motion, Non Tender, Supple Respiratory: Chest Non Tender, Lungs Clear, No Accessory Muscle Use, No Respiratory Distress, Accessory Muscle Use Cardiovascular: Regular Rate, Rhythm, No Edema Gastrointestinal: Soft, Other (Lower abdominal healing open surgical wound. Wound is packed with scant drainage and minimal erythema and tenderness) Genital/Rectal: Other (Sacral skin breakdown wounds with mild erythema) Back: Normal Inspection, No CVA Tenderness Neurologic/Psychiatric: Alert, Oriented x3, Normal Mood/Affect, Other (Right foot pressure ulcer) Focused Exam Sepsis Stage: Sepsis Possible Source: Genitouriary Lactate Level 01/16/22 18:25: Lactic Acid Level 2.98*H 01/16/22 20:59: Lactic Acid Level 2.32*H Time of Focused Exam: 18:00 Cardiovascular: Regular Rate, Rhythm, No Edema Capillary Refill: Less Than 3 Seconds Lactic Acid Level Laboratory Tests Test 01/16/22 18:25 01/16/22 20:59 Lactic Acid Level 2.98 MMOL/L (0.50-2.00) *H 2.32 MMOL/L (0.50-2.00) *H Within 3hrs of presentation: Admin fluids, Admin ABX, Blood cultures prior to ABX's Procedures/Interventions Date of ETT Placement: Oct 21, 2021 Suture Size: 4-0 Progress/Results/Core Measures Suspected Sepsis SIRS Temperature: Pulse: 85 Respiratory Rate: 15 Laboratory Tests 01/16/22 18:25: White Blood Count 5.2 Blood Pressure 72 /53 Mean: 59 01/16/22 18:25: Lactic Acid Level 2.98*H 01/16/22 20:59: Lactic Acid Level 2.32*H Laboratory Tests 01/16/22 18:25: Creatinine 1.40H, INR Comment 1.3, Platelet Count 145, Total Bilirubin 0.5 Results/Orders Lab Results Laboratory Tests Test 01/16/22 18:25 01/16/22 19:25 01/16/22 20:59 Range/Units White Blood Count 5.2 4.3-11.0 10^3/uL Red Blood Count 2.54 L 3.80-5.11 10^6/uL Hemoglobin 7.9 L 11.5-16.0 g/dL Hematocrit 23 L 35-52 % Mean Corpuscular Volume 92 80-99 fL Mean Corpuscular Hemoglobin 31 25-34 pg Mean Corpuscular Hemoglobin Concent 34 32-36 g/dL Red Cell Distribution Width 18.6 H 10.0-14.5 % Platelet Count 145 130-400 10^3/uL Mean Platelet Volume 11.1 9.0-12.2 fL Immature Granulocyte % (Auto) 0 % Neutrophils (%) (Auto) 53 42-75 % Lymphocytes (%) (Auto) 32 12-44 % Monocytes (%) (Auto) 9 0-12 % Eosinophils (%) (Auto) 5 0-10 % Basophils (%) (Auto) 0 0-10 % Neutrophils # (Auto) 2.8 1.8-7.8 10^3/uL Lymphocytes # (Auto) 1.7 1.0-4.0 10^3/uL Monocytes # (Auto) 0.5 0.0-1.0 10^3/uL Eosinophils # (Auto) 0.3 0.0-0.3 10^3/uL Basophils # (Auto) 0.0 0.0-0.1 10^3/uL Immature Granulocyte # (Auto) 0.0 0.0-0.1 10^3/uL Prothrombin Time 16.4 H 12.2-14.7 SEC INR Comment 1.3 0.8-1.4 Activated Partial Thromboplast Time 41 H 24-35 SEC Sodium Level 128 L 135-145 MMOL/L Potassium Level 3.4 L 3.6-5.0 MMOL/L Chloride Level 95 L 98-107 MMOL/L Carbon Dioxide Level 20 L 21-32 MMOL/L Anion Gap 13 5-14 MMOL/L Blood Urea Nitrogen 11 7-18 MG/DL Creatinine 1.40 H 0.60-1.30 MG/DL Estimat Glomerular Filtration Rate 40 BUN/Creatinine Ratio 8 Glucose Level 228 H 70-105 MG/DL Lactic Acid Level 2.98 *H 2.32 *H 0.50-2.00 MMOL/L Calcium Level 6.7 L 8.5-10.1 MG/DL Corrected Calcium 8.1 L 8.5-10.1 MG/DL Total Bilirubin 0.5 0.1-1.0 MG/DL Aspartate Amino Transf (AST/SGOT) 18 5-34 U/L Alanine Aminotransferase (ALT/SGPT) 15 0-55 U/L Alkaline Phosphatase 163 H 40-136 U/L Total Protein 5.5 L 6.4-8.2 GM/DL Albumin 2.3 L 3.2-4.5 GM/DL Urine Color YELLOW Urine Clarity TURBID Urine pH 6.5 5-9 Urine Specific [place] 1.015 L 1.016-1.022 Urine Protein 1+ H NEGATIVE Urine Glucose (UA) 2+ H NEGATIVE Urine Ketones NEGATIVE NEGATIVE Urine Nitrite NEGATIVE NEGATIVE Urine Bilirubin NEGATIVE NEGATIVE Urine Urobilinogen 0.2 < = 1.0 MG/DL Urine Leukocyte Esterase 3+ H NEGATIVE Urine RBC (Auto) 3+ H NEGATIVE Urine RBC /HPF Urine WBC TNTC H /HPF Urine Crystals /LPF Urine Bacteria /HPF Urine Casts /LPF Urine Mucus /LPF Urine Other CX ALREADY ORDERED /HPF Urine Culture Indicated NO Influenza Type A Antigen NEGATIVE NEGATIVE Influenza Type B Antigen NEGATIVE NEGATIVE My Orders Orders - REINALDO HELMS DO Cbc With Automated Diff (01/16/22 18:29) Comprehensive Metabolic Panel (01/16/22 18:29) Blood Culture (01/16/22 18:29) Sputum Culture (01/16/22 18:29) Urinalysis (01/16/22 18:29) Urine Culture (01/16/22 18:29) Protime With Inr (01/16/22 18:29) Partial Thromboplastin Time (01/16/22 18:29) Chest 1 View Ap/Pa Only (01/16/22 18:29) Acetaminophen Tablet (Tylenol Tablet) (01/16/22 18:30) Ed Iv/Invasive Line Start (01/16/22 18:29) Ed Iv/Invasive Line Start (01/16/22 18:29) Vital Signs Adult Sepsis Patie Q15M (01/16/22 18:29) O2 (01/16/22 18:29) Remove Rings In Anticipation O (01/16/22 18:29) Lactic Acid Analyzer (01/16/22 18:29) Influenza A & B Antigens (01/16/22 18:29) Coronavirus Sars-Cov-2 So 2018 (01/16/22 18:29) Ns Iv 1000 Ml (Sodium Chloride 0.9%) (01/16/22 19:15) Acetaminophen Tablet (Tylenol Tablet) (01/16/22 19:01) Doxycycline Injection (Vibramycin Inject (01/16/22 19:30) Parker Cath (01/16/22 19:34) Ns (Ivpb) (Sodium Chloride 0.9% Ivpb Bag (01/16/22 19:39) Ns Iv 1000 Ml (Sodium Chloride 0.9%) (01/16/22 20:00) Medications Given in ED Current Medications Medications Dose Ordered Sig/Shorty Route Start Time Stop Time Status Last Admin Dose Admin Acetaminophen 1,000 mg ONCE PRN PO 01/16/22 18:30 01/16/22 18:59 DC 01/16/22 18:58 1,000 MG Doxycycline Hyclate 100 mg/ Sodium Chloride 100 ml @ 100 mls/hr ONCE ONCE IV 01/16/22 19:30 01/16/22 20:29 DC 01/16/22 19:42 100 MLS/HR Sodium Chloride 1,000 ml @ 999 mls/hr Q1H ONCE IV 01/16/22 20:00 01/16/22 21:00 DC 01/16/22 20:11 999 MLS/HR Sodium Chloride 1,000 ml @ 999 mls/hr Q1H1M ONCE IV 01/16/22 19:15 01/16/22 20:15 DC 01/16/22 18:58 999 MLS/HR Vital Signs/I&O 01/16/22 18:10 Temp 37.4 Pulse 85 Resp 15 B/P (MAP) 72/53 (59) Pulse Ox 97 O2 Delivery Nasal Cannula Capillary Refill : Less Than 3 Seconds Blood Pressure Mean: 59 Departure Communication (Admissions) Chest x-ray: No acute cardiopulmonary disease UTI with sepsis. IV fluids and antibiotics given. Hospital admission recommended but declined by patient. She verbalized understanding of risks of premature discharge from facility with lack of comparable alternative treatment and test at custodial. Patient verbalizes understanding agreement discharge instructions prior to departure Impression Primary Impression: UTI (urinary tract infection) Additional Impression: Sepsis Disposition: HOME, SELF-CARE Condition: Improved Departure-Patient Inst. Decision time for Depature: 21:22 Referrals: MAYCOL CLAIRE MD (PCP/Family) Primary Care Physician Patient Instructions: Sepsis, Adult (DC), Urinary Tract Infection, Adult ED Add. Discharge Instructions: You were evaluated in the emergency department for urinary tract infection with fever. Please increase fluids and take newly prescribed medications as directed. Follow-up with your PCP or custodial attending for reevaluation tomorrow. Continue 650 mg of Tylenol every 6 hours as needed for fever. Return to the ED if you change your mind regarding further testing and hospital admission. All discharge instructions reviewed with patient and/or family. Voiced understan pipo. Scripts Doxycycline Hyclate (Doxycycline Hyclate) 100 Mg Tablet 100 MG PO BID, #20 TAB 0 Refills Prov: REINALDO HELMS DO 01/16/22 REINALDO HELMS DO Jan 16, 2022 19:47
[2022-01-16] MEDS ORDERED: DOXY100T2 PO ×2 (21:24→21:25)
[2022-01-16 21:37] VITALS: BP 130/100
== END 2022-01-16 22:31 | disposition home or self-care (01) ==
LOC: EDUNIT# 18:10 → ER FS 18:11
DX: N39.0 Urinary tract infection, site not specified (principal); A41.9 Sepsis, unspecified organism; Z20.822 Contact with and (suspected) exposure to COVID-19
CPT/HCPCS: 36415; 51702; 71045; 80053; 81000; 83605; 85025; 85610; 85730; 87040; 87088; 87635; 87804; 96361; 96374

== ENCOUNTER → 2022-02-26 | Outpatient (CLI) | payer MEDICARE ==
[~2022-02-26] MED LIST changes: +DOXY100T2 PO
[2022-02-26 11:55] LABS: CLARITY,URINE CLOUDY; COLOR,URINE YELLOW
[2022-02-26 11:56] LABS: GLUCOSE, URINE (UA) 3+ (NEGATIVE); PH,URINE 6.5 (5-9); PROTEIN,URINE NEGATIVE (NEGATIVE)
[2022-02-26 11:57] LABS: BACTERIA,URINE MODERATE /HPF; BILIRUBIN,URINE NEGATIVE (NEGATIVE); KETONES,URINE NEGATIVE (NEGATIVE); LEUKOCYTE ESTERASE ,URINE 3+ (NEGATIVE); NITRITE,URINE NEGATIVE (NEGATIVE); WBC,URINE TNTC /HPF
[2022-02-26 11:58] LABS: YEAST,URINE MODERATE /HPF
== END ==
LOC: LAB FS 11:38
PROVIDERS: ATTEND Family Medicine
DX: B37.41 Candidal cystitis and urethritis (principal)
CPT/HCPCS: 81000; 87077; 87088; 87106